=== PATIENT | male | born 1975 | race Caucasian/White ===

== ENCOUNTER 2024-09-17 15:26 | Emergency (ER) | payer BC, SELFPAY ==
[2024-09-17 15:35] VITALS: BP 157/110; PULSE 91; RESP 16; TEMP 36.7; O2SAT 96; BMI 31.3
--- NOTE | 2024-09-17 16:02 | ED.ABDPAIN ---
HPI - Abdominal Pain General Time Seen by Provider: 16:02 Date Seen: 09/17/24 Chief Complaint: Abdominal Pain Stated Complaint: Abdominal pain Time Seen by Provider: 09/17/24 16:02 Source: patient Mode of arrival: ambulatory Limitations: no limitations History of Present Illness HPI narrative: 48-year-old male who presents with 1 month of abdominal pain. Patient complains of upper abdominal pain and bloating after he eats. No vomiting. No blood in the stools. Also has noticed various other complaints of last several months including left chest pain, recently had a stress test with his primary care provider which was negative, also pain in the sides of the chest bilaterally. History of ulcerative colitis, has previously been infusions for this but stopped last month after possible infusion reaction. Related Data Home Medications ?Medication ?Instructions ?Recorded ?Confirmed amlodipine 5 mg tablet 5 mg PO DAILY blood pressure 09/17/24 09/17/24 cyclobenzaprine 10 mg tablet mg PO 09/17/24 insulin glargine 100 unit/mL (3 30 - 32 unit subcut QPM 09/17/24 09/17/24 mL) subcutaneous pen (Lantus Solostar U-100 Insulin) metformin 500 mg tablet,extended 1,500 mg PO DAILY diabetes mellitus 09/17/24 09/17/24 release 24 hr pen needle, diabetic 32 gauge x 09/17/24 09/17/24 5/32 (BD Mireya 2nd Gen Pen Needle) Allergies Allergy/AdvReac Type Severity Reaction Status Date / Time sulfamethoxazole (From Allergy Intermediate Rash Unverified 09/17/24 15:46 Bactrim) trimethoprim (From Bactrim) Allergy Intermediate Rash Unverified 09/17/24 15:46 Sulfa (Sulfonamide Allergy Unknown Unverified 09/17/24 15:46 Antibiotics) Exam Narrative: Exam Narrative: General: Well-developed and well-nourished, no acute distress Head: Atraumatic and normocephalic Eyes: Pupils are equal reactive, extraocular motions intact, conjunctiva clear ENT: External nose and ears are normal, posterior pharynx without erythema or exudate Neck: No midline cervical tenderness, full spontaneous range of motion the neck, trachea midline, no adenopathy Heart: Regular rate and rhythm no murmurs or thrills Lungs: Clear to auscultation bilaterally without wheezes or crackles Abdomen: Soft, nontender, nondistended with active bowel sounds Musculoskeletal: No tenderness, deformity, or edema Neurologic: Awake, alert, and oriented x3, no gross focal neurologic deficits, cranial nerves intact as tested Psych: Mood and affect are appropriate Skin: No rashes Const: Vital Signs, click to edit/add: Vital Signs - 24 hr 09/17/24 15:35 Temperature 98.1 F Pulse Rate [Pulse Oximeter] 91 Respiratory Rate 16 Blood Pressure [Le ft Upper Arm] 157/110 H Pulse Oximetry 96 Oxygen Delivery Me thod Room Air Course Course ED Course: Reviewed most recent problem list including diabetes, history of lower abdominal pain previously diagnosed with ulcerative colitis, chronic back pain, anxiety. Reviewed most recent labs from September 03 a which showed normal LFTs, negative CRP, normal CBC negative stool testing for enteric bacteria and viruses. Reevaluation(s) Time of Reevaluation #1: 17:44 Reevaluation #1: Right upper quadrant ultra sound with hepatic steatosis, no evidence of acute cholecystitis or cholelithiasis. Labs with bilirubin 1.7, ALT 51 but otherwise normal hepatic panel, blood sugar 189, lipase normal. Patient is stable for discharge. Should increase his Protonix to twice a day for 1 week and then daily, follow-up with gastroenterology and primary care. Vital Signs Vital signs: Initial Vital Signs Temperature 98.1 F 09/17/24 15:35 Temperature Source Temporal Artery Scan 09/17/24 15:35 Pulse Rate 91 09/17/24 15:35 Respiratory Rate 16 09/17/24 15:35 Blood Pressure 157/110 H 09/17/24 15:35 Blood Pressure Mean 125 H 09/17/24 15:35 Pulse Oximetry 96 09/17/24 15:35 Oxygen Delivery Method Room Air 09/17/24 15:35 Vital Signs Temperature 98.1 F 09/17/24 15:35 Pulse Rate 91 09/17/24 15:35 Respiratory Rate 16 09/17/24 15:35 Blood Pressure 157/110 H 09/17/24 15:35 Pulse Oximetry 96 09/17/24 15:35 Oxygen Delivery Method Room Air 09/17/24 15:35 Temperature 98.1 F 09/17/24 15:35 Pulse Rate 91 09/17/24 15:35 Respiratory Rate 16 09/17/24 15:35 Blood Pressure 157/110 H 09/17/24 15:35 Pulse Oximetry 96 09/17/24 15:35 Oxygen Delivery Method Room Air 09/17/24 15:35 MDM - Abdominal Pain Lab Data Labs: Lab Results 09/17/24 Range/Units 17:10 WBC 5.31 (4.50-11.00) K/uL RBC 4.96 (4.30-5.90) m/uL Hgb 15.2 (13.5-17.5) gm/dL Hct 43.1 (37.0-53.0) % MCV 87 (80-100) fL MCH 31 (26-34) pg MCHC 35 (32-36) gm/dL RDW Coeff of Nisa 12.9 (11.5-15.5) % Plt Count 168 (140-440) K/uL Neut % (Auto) 53.2 (42.0-72.0) % Lymph % (Auto) 35.2 (20-44) % Shasta % (Auto) 8.9 (0.0-11.0) % Eos % (Auto) 2.3 (0.0-7.0) % Baso % (Auto) 0.4 (0.0-3.0) % Neut # (Auto) 2.83 (1.7-7.0) K/uL Lymph # (Auto) 1.87 (0.90-2.90) K/uL Shasta # (Auto) 0.50 (0.00-0.90) K/UL Eos # (Auto) 0.12 (0.00-0.50) K/uL Baso # (Auto) 0.02 (0.00-0.30) K/uL Abs Immat Gran (auto) 0.00 (0.00-0.30) K/uL Imm/Tot Granulo (auto) 0.0 % Sodium 141 (135-149) mmol/L Potassium 3.7 (3.6-5.1) mmol/L Chloride 107 (96-114) mmol/L Carbon Dioxide 26 (20-32) mmol/L Anion Gap 8 (7-15) mEq/L BUN 14 (5-24) mg/dL Creatinine 1.0 (0.5-1.5) mg/dL Estimated Creat Clear 109.71 Estimated GFR 92 ml/min Glucose 189 H (60-115) mg/dL Calcium 9.2 (8.4-10.6) mg/dL Total Bilirubin 1.7 H (0.1-1.5) mg/dL Direct Bilirubin 0.3 (0.0-0.5) mg/dL AST 31 (12-35) U/L ALT 51 H (4-50) U/L Alkaline Phosphatase 61 (40-150) U/L Total Protein 7.2 (6.0-8.3) g/dL Albumin 4.7 (3.3-5.0) g/dL Lipase 168 (23-300) U/L Discharge Plan Discharge Clinical Impression: Gastritis Patient Disposition: Home, Self-Care Condition: Stable Instructions: Diet for Stomach Ulcers and Gastritis (ED) Additional Instructions: See take Prilosec or Protonix twice a day for 7 days and then once a day. Follow-up with your certified professional ergonomist and primary care provider. If symptoms persist, consider EGD or ?scope? of the esophagus and stomach. Activity Level: No Restrictions Diet Detail: Avoid carbonated beverages, alcohol, caffeine Prescriptions: No Action cyclobenzaprine 10 mg tablet PO amlodipine 5 mg tablet 5 mg PO DAILY metformin 500 mg tablet extended release 24 hr 1,500 mg PO DAILY insulin glargine [Lantus Solostar U-100 Insulin] 100 unit/mL (3 mL) insulin pen 30 - 32 unit subcut QPM (DME) pen needle, diabetic [BD Mireya 2nd Gen Pen Needle] 32 gauge x 5/32 needle MISCELLANEOUS Patient Comments: PLEASE SEE ATTACHED FOR DETAILED DIRECTIONS Follow Up/Referrals: Jairo Vasquez MD [Primary Care Provider] - Stand Alone Forms: DossierViewth Info Instructions
--- NOTE | 2024-09-17 16:27 | CRLHL7_ITS ---
For Patients: As a result of the Century Cures Act, medical imaging exams and procedure reports are released immediately into your electronic medical record. You may view this report before your referring provider. If you have questions, please contact your health care provider. Indication: upper abdominal bloating after eating Technique: Multiple transverse and longitudinal sonographic grayscale images of the right upper quadrant of the abdomen were obtained, supplemented with color, power, and spectral Doppler imaging. Comparison: None. Findings: Suboptimal examination secondary to habitus. Pancreas: Visualized portions normal. Liver length: 19.7 cm. Liver appearance: Moderate hepatic steatosis. No biliary ductal dilation. Portal vein: Patent, hepatopetal flow. CBD: 0.4 cm. Gallbladder: Negative sonographic Green sign. Contracted. Right kidney length: 11.8 cm. Right kidney appearance: Normal. Impression: 1. Suboptimal examination secondary to habitus. 2. Moderate hepatic steatosis. 3. Contracted gallbladder without sonographic evidence of acute cholecystitis. Limited evaluation of the gallbladder as the patient was not fasting. Dictated by Stephan Harp MD @ 09/17/2024 5:27:30 PM (Electronically Signed)
[2024-09-17 17:23] LABS: Basophils Absolute Auto 0.02 K/uL (0.00-0.30); Basophils Percent Auto 0.4 % (0.0-3.0); Eosinophils Absolute Auto 0.12 K/uL (0.00-0.50); Eosinophils Percent Auto 2.3 % (0.0-7.0); Hematocrit 43.1 % (37.0-53.0); Hemoglobin* 15.2 gm/dL (13.5-17.5); Lymphocytes Absolute Auto 1.87 K/uL (0.90-2.90); Lymphocytes Percent Auto 35.2 % (20-44); Mean Corpuscular HGB Conc 35 gm/dL (32-36); Mean Corpuscular Hemoglobin 31 pg (26-34); Mean Corpuscular Volume 87 fL (80-100); Monocytes Percent Auto 8.9 % (0.0-11.0); Neutrophils Absolute Auto 2.83 K/uL (1.7-7.0); Neutrophils Percent Auto 53.2 % (42.0-72.0); Platelet Count* 168 K/uL (140-440); RDW Coefficient of Variation % 12.9 % (11.5-15.5); Red Blood Count 4.96 m/uL (4.30-5.90); White Blood Count* 5.31 K/uL (4.50-11.00)
[2024-09-17 17:24] LABS: Slide Review Reflex No
[2024-09-17 17:30] LABS: Albumin* 4.7 g/dL (3.3-5.0); Chloride* 107 mmol/L (96-114); Potassium* 3.7 mmol/L (3.6-5.1); Sodium* 141 mmol/L (135-149)
[2024-09-17 17:32] LABS: Anion Gap 8 mEq/L (7-15); Carbon Dioxide* 26 mmol/L (20-32); Est. Creatinine Clearance* 109.71; Estimated Glomerular Filt Rate 92 ml/min
[2024-09-17 17:33] LABS: Alanine Aminotransferase* 51 U/L (4-50); Alkaline Phosphatase* 61 U/L (40-150); Aspartate Amino Transferase* 31 U/L (12-35); Bilirubin Direct* 0.3 mg/dL (0.0-0.5); Bilirubin Total* 1.7 mg/dL (0.1-1.5); Blood Urea Nitrogen* 14 mg/dL (5-24); Calcium* 9.2 mg/dL (8.4-10.6); Glucose* 189 mg/dL (60-115); Lipase* 168 U/L (23-300); Total Protein* 7.2 g/dL (6.0-8.3)
== END 2024-09-17 17:57 | disposition home or self-care (01) ==
PROVIDERS: Emergency Provider Family Medicine; PCP Family Medicine
DX: K29.70 Gastritis, unspecified, without bleeding (principal)
CPT/HCPCS: 36415; 76705; 80048; 80076; 83690; 85025; 99283; 99284

== ENCOUNTER 2025-01-15 15:41 | Emergency (ER) | payer BC, SELFPAY ==
--- OUTSIDE RECORDS SUMMARY | 2025-01-15 15:44 | XMS_ITS | Encounter Summary ---
Author Organization [facility] Address [address] [place] [address] Care Team Providers Care Chemical Research Engineer Name Role Phone Jairo Vasquez MD Primary Care Provider [phone] Kylee Dailey MD Unavailable + Kayode Ivey MD Unavailable [phone] Nicolasa Perez APRN FRONT DESK ASSOCIATE Unavaila ble Srinivas Stern-C Unavailable Srinivas Stern-C Unavailable [phone] Bandar Casas [facility] Unavailable Bandar Casas [facility] Unavailable Ayana Zhang-C Unavailable [phone] Srinivas Stern-C Unavailable [phone] Encounter Details Date Type Department Care Team (Late st Contact Info) Description 04/11/2024 MyC Medical Advice [facility] [address] [place] [address] Erika Dickson Social History Tobacco Use Types Packs/Day Years Used Date Smoking Tobacco: Never Smokeless Tobacco: Never Alcohol Use Standard Drinks/Week Comments Yes 13 (1 standard drink = 0.6 oz pu re alcohol) MONTHLY PHQ-2 Answer Date Recorded PHQ-2 Score 0 10/25/2023 Adolescent Education Answer Date Record ed Getting School Help Needed Not on file 05/28 Sex and Gender Information Value Date Recorded Sex Assigned at Not on file Legal Sex 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 Gender Identity Not on file Sexual Orientation Not on file 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 Plan of Treatment Upcoming Encounters Date Type Department Care Team (Latest Contact Info) Description 02/13/2025 3:20 PM CDT Appointment [facility] [address] [facility] [address] [place] [phone] Kayode Ivey MD [address] [place] [address] [phone] 03/07/2025 3:00 PM CDT Ancillary Procedure [address] [place] [address] Srinivas Stern PA-C [address] [place] [address] [phone] 04/24/2025 2:40 PM CDT Virtual Visit [facility] [address] [place] [address] Alexis Torres MD [address] [place], [place] [phone] Srinivas Stern PA-C [address] [place] [address] [phone] 06/05/2025 3:30 PM CDT Virtual Visit [facility] [address] [place] [address] 2[address] [place] [address] Kayode Ivey MD [address] [place] [address] [phone] Bandar Casas RPH 420 [facility] [address] [place], [place] 050715 documented as of this encounter Visit Diagnoses Not on filedocumented in this encounter Additional Health Concerns Infection Onset Date Last Indicated Resolved Time MRSA-Contact Isolation Comment: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, chest, and elbow 02/17/2016 02/17/2016 Rule Out C-difficile 09/03/2024 09/04/2024 025 12:45 PM CENTER MACHINE SET UP OPERATOR Assessment Noted Time PHQ-9 Depression Total Score: 9 03/02/20 16 7:16 AM CDT documented as of this encounter Care Teams Chemical Research Engineer Relationship Specialty Start Date End Date Jairo Vasquez MD PCP - General Family Medicine - Sports Medicine 12/29/15 Kylee Dailey MD [address] [place] [address] [address] [place], [place] [phone] Internal Medicine 04/01/17 Kayode Ivey MD [address] [place] [address] [phone] Gastroenterology 04/01/17 Nicolasa Perez APRN FRONT DESK ASSOCIATE [address] [place] [address] [id number] [place], [place] 867895 Nurse Practitioner Nurse Practitioner 04/28/17 Srinivas Stern PA-C [address] [place] [address] [id number] Physician Warehouse Stock Clerk Physician Warehouse Stock Clerk 10/02/18 Srinivas Stern PA-C [address] [place] [address] [phone] Assigned Gastroenterology Provider 07/17/22 Bandar Casas RPH [address] [phone] Pharmacist Pharmacist 08/18/23 Bandar Casas RPH [address] [phone] Assigned MTM Pharmacist 08/27/23 Ayana Zhang PA-C [address] [place] [address] Physician Warehouse Stock Clerk Rheumatology 04/16/24 Srinivas Stern PA-C [address] [place], [place] 624575 Home Infusion Following Provider Gastroenterology 07/11/24 10/05/24 documented as of this encounter
--- OUTSIDE RECORDS SUMMARY | 2025-01-15 15:44 | XMS_ITS | Encounter Summary ---
Author Organization [facility] Address [address] [place] [address] Care Team Providers Care Men'S Leather Dress Belt Maker Name Role Phone Jairo Vasquez MD Primary Care Provider [phone] Kylee Dailey MD Unavailable + Kayode Ivey MD Unavailable [phone] Nicolasa Perez APRN SALES RELATIONSHIP MANAGER Unavaila ble Loyda Dickey RN Unavailable [phone] Srinivas Stern PA-C Unavailable [phone] Srinivas Stern PA-C Unavailable +[phone] Violet Ta [facility] Unavailable [phone] Sue Mckeon [facility] Unavailable [phone] Karen Trinh MD Unavailable +[phone] Violet Ta [facility] Unavailable [phone] Violet Ta [facility] Unavailable [phone] Srinivas Stern PA-C Unavailable [phone] Bandar Casas [facility] Unavailable [phone] Bandar Casas [facility] Unavailable [phone] Ayana Zhang PA-C Unavailable [phone] Srinivas Stern PA-C Unavailable Encounter Details Date Type Department Care Team (Late st Contact Info) Description 07/24/2017 MyC Medical Advice [facility] [address] [place] [address] Kayode Ivey MD 6 [place], [place] [phone] Social History Tobacco Use Types Packs/Day Years Used Date Smoking Tobacco: Never Smokeless Tobacco: Never Alcohol Use Standard Drinks/Week Comments Yes 13 (1 standard drink = 0.6 oz pu re alcohol) MONTHLY Sex and Gender Information Value Date Recorded Sex Assigned at Not on file 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 Gender Identity Not on file Sexual Orientation Not on file 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 Plan of Treatment Upcoming Encounters Date Type Department Care Team (Latest Contact Info) Description 02/13/2025 3:20 PM CDT Appointment [facility] [address] [facility] [address] [place] [phone] Kayode Ivey MD 6 [place] [address] 03/07/2025 3:00 PM CDT Ancillary Procedure [address] [place] [address] Srinivas Stern PA-C [address] [place], [place] [phone] 04/24/2025 2:40 PM CDT Virtual Visit [facility]astro[facility]ology [facility] [address] [address] Alexis Torres MD 420 [place] [address] Srinivas Stern PA-C [address] [place], [place] [phone] 06/05/2025 3:30 PM CDT Virtual Visit Viola MADERA [facility] 909 [facility] 2nd [place] [phone] Kayode Ivey MD [address] [place] [address] Bandar Casas, [facility] 420 [facility] 812 [place] [address] documented as of this encounter Visit Diagnoses Not on filedocumented in this encounter Additional Health Concerns Infection Onset Date Last Indicated Resolved Time MRSA-Contact Isolation Comment: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, chest, and elbow 02/17/2016 02/17/2016 Rule Out C-difficile 10/04/2023 10/05/2023 024 7:28 PM ECOMMERCE MARKETING SPECIALIST C-difficile 10/05/2023 10/05/2023 11/04/2023 11:3 9 PM ECOMMERCE MARKETING SPECIALIST Rule Out C-difficile 09/03/2024 09/04/2024 025 12:45 PM ECOMMERCE MARKETING SPECIALIST Assessment Noted Time PHQ-9 Depression Total Score: 9 03/02/20 16 7:16 AM CDT documented as of this encounter Care Teams Men'S Leather Dress Belt Maker Relationship Specialty Start Date End Date Jairo Vasquez MD PCP - General Family Medicine - Sports Medicine 12/29/15 Kylee Dailey MD [address] [place] [address] [address] [place], [place] [phone] Internal Medicine 04/01/17 Kayode Ivey MD [address] [place] [address] Gastroenterology 04/01/17 Nicolasa Perez APRN SALES RELATIONSHIP MANAGER [address] [place] [place] [address] [id number] [place], [place] 982175 Nurse Practitioner Nurse Practitioner 04/28/17 Loyda Dickey RN Nurse Coordinator Neurology 05/26/17 02/26/19 Srinivas Stern PA-C [address] [place] [address] Physician Javascript Software Engineer Physician Javascript Software Engineer 10/02/18 Srinivas Stern PA-C [address] [place] [address] Assigned Heart and Vascular Provider 11/19/20 06/27/21 Violet Ta [facility] [address] [place] [address] Pharmacist Pharmacist 12/29/20 02/08/21 Sue Mckeon [facility] [address] [place] [address] [phone] Pharmacist Pharmacist Internal Communications Specialist 02/09/21 06/29/22 Karen Trinh MD [address] [place] [address] [phone] Assigned Infectious Disease Provider 02/08/21 07/30/22 Violet Ta [facility] [address] [place] [address] 96 [place], [place] [phone] Assigned MTM Pharmacist 02/27/22 05/21/22 Violet Ta [facility] 480 [facility] [address] [place] [address] Assigned MTM Pharmacist 06/02/22 07/09/22 Srinivas Stern PA-C [address] [place] [address] Assigned Gastroenterology Provider 07/17/22 Bandar Casas RPH 420 [facility] 812 [place] [address] Pharmacist Pharmacist 08/18/23 Bandar Casas RP [address] [address] Assigned MTM Pharmacist 08/27/23 Ayana Zhang PA-C [address] [place] [address] Physician Javascript Software Engineer Rheumatology 04/16/24 Srinivas Stern PA-C [address] [place] [address] Home Infusion Following Provider Gastroenterology 07/11/24 10/05/24 documented as of this encounter
--- OUTSIDE RECORDS SUMMARY | 2025-01-15 15:44 | XMS_ITS | Encounter Summary ---
Author Organization [facility] Address [address] [place] [address] Care Team Providers Care Core Drier Name Role Phone Jairo Vasquez MD Primary Care Provider [phone] Kylee Dailey MD Unavailable + Kayode Ivey MD Unavailable [phone] Nicolasa Perez APRN DIRECTOR OF ACCREDITATION Unavaila ble Loyda Dickey RN Unavailable [phone] Srinivas Stern PA-C Unavailable [phone] Srinivas Stern PA-C Unavailable +[phone] Violet Ta [facility] Unavailable [phone] Sue Mckeon [facility] Unavailable [phone] Karen Trinh MD Unavailable +[phone] Violet Ta [facility] Unavailable [phone] Violet Ta [facility] Unavailable [phone] Srinivas Stern PA-C Unavailable +[phone] Bandar Casas [facility] Unavailable [phone] Bandar Casas [facility] Unavailable [phone] Ayana Zhang PA-C Unavailable [phone] Srinivas Stern PA-C Unavailable Encounter Details Date Type Department Care Team (Late st Contact Info) Description 11/10/2016 MyC Medical Advice [facility]enter[facility] and IBD Clinic [address] [place] [address] Kayode Ievy MD 6 [place] [address] Social History Tobacco Use Types Packs/Day Years Used Date Smoking Tobacco: Never Alcohol Use Standard Drinks/Week Comments No 0 (1 standard drink = 0.6 oz pur e alcohol) not currently Sex and Gender Information Value Date Recorded Sex Assigned at Not on file 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 Sex 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 Gender Identity Not on file Sexual Orientation Not on file 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 Plan of Treatment Upcoming Encounters Date Type Department Care Team (Latest Contact Info) Description 02/13/2025 3:20 PM CDT Appointment [facility] Imaging [address] [facility] [address] [place] [phone] Kayode Ivey MD 6 [place] [address] 03/07/2025 3:00 PM CDT Ancillary Procedure [address] [place] [address] Srinivas Stern PA-C [address] [place] [address] [phone] 04/24/2025 2:40 PM CDT Virtual Visit [facility]astro[facility]ology Clinic [address] [address] Alexis Torres MD 420 [place] [address] Srinivas Stern PA-C 909 [place], [place] 329405 06/05/2025 3:30 PM CDT Virtual Visit Viola MADERA [facility] 909 [facility] [address] 2nd [place] [phone] Kayode Ivey MD 516 [place] [address] Bandar Casas, [facility] 420 [facility] 812 [place], [place] 994815 documented as of this encounter Visit Diagnoses Not on filedocumented in this encounter Additional Health Concerns Infection Onset Date Last Indicated Resolved Time MRSA-Contact Isolation Comment: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, chest, and elbow 02/17/2016 02/17/2016 Rule Out C-difficile 10/04/2023 10/05/2023 024 7:28 PM SUPERVISOR DRYING C-difficile 10/05/2023 10/05/2023 11/04/2023 11:3 9 PM SUPERVISOR DRYING Rule Out C-difficile 09/03/2024 09/04/2024 025 12:45 PM SUPERVISOR DRYING Assessment Noted Time PHQ-9 Depression Total Score: 9 03/02/20 16 7:16 AM CDT documented as of this encounter Care Teams Core Drier Relationship Specialty Start Date End Date Jairo Vasquez MD PCP - General Family Medicine - Sports Medicine 12/29/15 Kylee Dailey MD [address] [place] [address] [address] [place] [address] Internal Medicine 04/01/17 Kayode Ivey MD [address] [place] [address] Gastroenterology 04/01/17 Nicolasa Perez APRN DIRECTOR OF ACCREDITATION [address] [place] [address] [id number] [place], [place] 589415 Nurse Practitioner Nurse Practitioner 04/28/17 Loyda Dickey RN Nurse Coordinator Neurology 05/26/17 02/26/19 Srinivas Stern PA-C [address] [place] [address] [phone] Physician Bad Work Gatherer Physician Bad Work Gatherer 10/02/18 Srinivas Stern PA-C [address] [place] [address] [phone] Assigned Heart and Vascular Provider 11/19/20 06/27/21 Violet Ta [facility] [address] [place] [address] Pharmacist Pharmacist 12/29/20 02/08/21 Sue Mckeon [facility] [address] [place] [address] 044145 Pharmacist Pharmacist Heel Seater 02/09/21 06/29/22 Karen Trinh MD [address] [place] [address] [phone] Assigned Infectious Disease Provider 02/08/21 07/30/22 Violet Ta [facility] [address] [place] [address] [phone] Assigned MTM Pharmacist 02/27/22 05/21/22 Violet Ta [facility] [address] [place] [address] [address] [place] [address] Assigned MTM Pharmacist 06/02/22 07/09/22 Srinivas Stern PA-C 909 [place] [address] Assigned Gastroenterology Provider 07/17/22 Bandar Casas RPH [address] [address] Pharmacist Pharmacist 08/18/23 Bandar Casas RPH [address] [place] [address] Assigned MTM Pharmacist 08/27/23 Ayana Zhang PA-C [address] [place] [address] Physician Bad Work Gatherer Rheumatology 04/16/24 Srinivas Stern PA-C [address] [place] [address] Home Infusion Following Provider Gastroenterology 07/11/24 10/05/24 documented as of this encounter
--- OUTSIDE RECORDS SUMMARY | 2025-01-15 15:44 | XMS_ITS | Encounter Summary ---
Author Organization [facility] Address [address] [place] [address] 29697 Care Team Providers Care Outside Cutter Name Role Phone Jairo Vasquez MD Primary Care Provider [phone] Kylee Dailey MD Unavailable + Kayode Ivey MD Unavailable +[phone] Nicolasa Perez APRN BRINELL TESTER Unavaila ble Loyda Dickey RN Unavailable [phone] Srinivas Stern PA-C Unavailable +[phone] Srinivas Stern PA-C Unavailable +[phone] [facility] Unavailable +[phone] Sue Mckeon [facility] Unavailable +[phone] Karen Trinh MD Unavailable [phone] [facility] Unavailable +[phone] Violet [facility] Unavailable +[phone] Srinivas Stern PA-C Unavailable +[phone] Band[facility] Unavailable +[phone] [facility] Unavailable Ayana Zhang PA-C Unavailable [phone] Srinivas Stern PA-C Unavailable [phone] Encounter Details Date Type Department Care Team (Late st Contact Info) Description 09/23/2016 MyC Medical Advice [facility] Gastroenterology and IBD Clinic [address] [place] [address] Kayode Ivey MD 6 [place] [address] Social History Tobacco Use Types Packs/Day Years Used Date Smoking Tobacco: Never Alcohol Use Standard Drinks/Week Comments No 0 (1 standard drink = 0.6 oz pur e alcohol) not currently Sex and Gender Information Value Date Recorded Sex Assigned at Not on file Legal Sex 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 OFFICE SERVICES CLERK Gender Identity Not on file Sexual Orientation Not on file 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 Plan of Treatment Upcoming Encounters Date Type Department Care Team (Latest Contact Info) Description 02/13/2025 3:20 PM CDT Appointment [facility] [address] [facility] [address] [place] [phone] Kayode Ivey MD 6 [place] [address] 03/07/2025 3:00 PM CDT Ancillary Procedure [address] [place] [address] Srinivas Stern PA-C [address] [place] [address] [phone] 04/24/2025 2:40 PM CDT Virtual Visit [facility] Gastroenterology Clinic [address] [address] Alexsi Torres MD 420 [place] [address] Srinivas Stern PA-C 909 [place], [place] 978525 06/05/2025 3:30 PM CDT Virtual Visit Viola MADERA MTM 909 [facility] [address]nd [place] [phone] Kayode Ivey MD 516 [place] [address] Bandar Casas, [facility] [address] [facility] 812 [place], [place] [phone] documented as of this encounter Visit Diagnoses Not on filedocumented in this encounter Additional Health Concerns Infection Onset Date Last Indicated Resolved Time MRSA-Contact Isolation Comment: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, chest, and elbow 02/17/2016 02/17/2016 Rule Out C-difficile 10/04/2023 10/05/2023 024 7:28 PM OFFICE SERVICES CLERK C-difficile 10/05/2023 10/05/2023 11/04/2023 11:3 9 PM OFFICE SERVICES CLERK Rule Out C-difficile 09/03/2024 09/04/2024 025 12:45 PM OFFICE SERVICES CLERK Assessment Noted Time PHQ-9 Depression Total Score: 9 03/02/20 16 7:16 AM CDT documented as of this encounter Care Teams Outside Cutter Relationship Specialty Start Date End Date aJiro Vasquez MD PCP - General Family Medicine - Sports Medicine 12/29/15 Kylee Dailey MD [address] [place] [address] 2[address] [place] [address] Internal Medicine 04/01/17 Kayode Ivey MD [address] [place] [address] Gastroenterology 04/01/17 Nicolasa Perez APRN BRINELL TESTER [address] [place] [address] [id number] [place], [place] 162295 Nurse Practitioner Nurse Practitioner 04/28/17 Loyda Dickey RN Nurse Coordinator Neurology 05/26/17 02/26/19 Srinivas Stern PA-C [address] [place] [address] [phone] Physician Clamp Jig Assembler Physician Clamp Jig Assembler 10/02/18 Srinivas Stern PA-C [address] [place] [address] [phone] Assigned Heart and Vascular Provider 11/19/20 06/27/21 [facility] [address] [place] [address] Pharmacist Pharmacist 12/29/20 02/08/21 [facility] [address] [place] [address] [phone] Pharmacist Pharmacist Medical Operations Supervisor 02/09/21 06/29/22 Karen Trinh MD [address] [place] [address] [phone] Assigned Infectious Disease Provider 02/08/21 07/30/22 [facility] [address] [place] [address] [phone] Assigned MTM Pharmacist 02/27/22 05/21/22 [facility] [address] [place] [address] [address] [place] [address] Assigned MTM Pharmacist 06/02/22 07/09/22 Srinivas Stern PA-C 909 [place] [address] Assigned Gastroenterology Provider 07/17/22 Bandar Casas RPH [address] [address] Pharmacist Pharmacist 08/18/23 Bandar Casas RPH [address] [place] [address] Assigned MTM Pharmacist 08/27/23 Ayana Zhang PA-C [address] [place] [address] Physician Clamp Jig Assembler Rheumatology 04/16/24 Srinivas Stern PA-C [address] [place] [address] Home Infusion Following Provider Gastroenterology 07/11/24 10/05/24 documented as of this encounter
--- OUTSIDE RECORDS SUMMARY | 2025-01-15 15:44 | XMS_ITS | Encounter Summary ---
Author Organization [facility] Address [address] [place] [address] Care Team Providers Care Document Examiner Name Role Phone Jairo Vasquez MD Primary Care Provider [phone] Kylee Dailey MD Unavailable + Kayode Ivey MD Unavailable [phone] Nicolasa Perez APRN FIRE ALARM DISPATCHER Unavaila ble Loyda Dickey RN Unavailable [phone] Srinivas Stern PA-C Unavailable +[phone] Srinivas Stern PA-C Unavailable +[phone] Violet Ta [facility] Unavailable +[phone] Sue Mckeon [facility] Unavailable [phone] Karen Trinh MD Unavailable +[phone] Violet Ta [facility] Unavailable +[phone] Violet Ta [facility] Unavailable +[phone] Srinivas Stern PA-C Unavailable +[phone] Bandar Casas [facility] Unavailable [phone] Bandar Casas [facility] Unavailable Ayana Zhang PA-C Unavailable [phone] Srinivas Stern PA-C Unavailable [phone] Encounter Details Date Type Department Care Team (Late st Contact Info) Description 11/30/2016 MyC Medical Advice [facility] Gastroenterology and IBD Clinic [address] [place] [address] Kayode Ivey MD 6 [place] [address] Social History Tobacco Use Types Packs/Day Years Used Date Smoking Tobacco: Never Alcohol Use Standard Drinks/Week Comments No 0 (1 standard drink = 0.6 oz pur e alcohol) not currently Sex and Gender Information Value Date Recorded Sex Assigned at Not on file Legal Sex 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 STATISTICAL METHODS TEACHER Gender Identity Not on file Sexual Orientation Not on file 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 Plan of Treatment Upcoming Encounters Date Type Department Care Team (Latest Contact Info) Description 02/13/2025 3:20 PM CDT Appointment [facility] Center Imaging [address] [facility] [address] [place] [phone] Kayode Ivey MD 6 [place] [address] 03/07/2025 3:00 PM CDT Ancillary Procedure [address] [place] [address] Srinivas Stern PA-C [address] [place] [address] [phone] 04/24/2025 2:40 PM CDT Virtual Visit [facility] Gastroenterology Clinic [address] [address] Alexis Torres MD 420 [place] [address] Srinivas Stern PA-C 909 [place], [place] [phone] 06/05/2025 3:30 PM CDT Virtual Visit Viola MADERA MTM 909 [facility] [address] 2nd [place] [phone] Kayode Ivey MD 516 [place] [address] Bandar Casas, [facility] 420 [facility] 812 [place], [place] 019455 documented as of this encounter Visit Diagnoses Not on filedocumented in this encounter Additional Health Concerns Infection Onset Date Last Indicated Resolved Time MRSA-Contact Isolation Comment: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, chest, and elbow 02/17/2016 02/17/2016 Rule Out C-difficile 10/04/2023 10/05/2023 024 7:28 PM STATISTICAL METHODS TEACHER C-difficile 10/05/2023 10/05/2023 11/04/2023 11:3 9 PM STATISTICAL METHODS TEACHER Rule Out C-difficile 09/03/2024 09/04/2024 025 12:45 PM STATISTICAL METHODS TEACHER Assessment Noted Time PHQ-9 Depression Total Score: 9 03/02/20 16 7:16 AM CDT documented as of this encounter Care Teams Document Examiner Relationship Specialty Start Date End Date Jairo Vasquez MD PCP - General Family Medicine - Sports Medicine 12/29/15 Kylee Dailey MD [address] [place] [address] 2[address] [place] [address] Internal Medicine 04/01/17 Kayode Ivey MD [address] [place] [address] Gastroenterology 04/01/17 Nicolasa Perez APRN FIRE ALARM DISPATCHER [address] [place] [address] [id number] [place], [place] [phone] Nurse Practitioner Nurse Practitioner 04/28/17 Loyda Dickey RN Nurse Coordinator Neurology 05/26/17 02/26/19 Srinivas Stern PA-C [address] [place] [address] [phone] Physician Sql Etl Developer Physician Sql Etl Developer 10/02/18 Srinivas Stern PA-C [address] [place] [address] [phone] Assigned Heart and Vascular Provider 11/19/20 06/27/21 Violet Ta [facility] [address] [place] [address] 386[address] Pharmacist Pharmacist 12/29/20 02/08/21 Sue Mckeon [facility] [address] [place] [address] [phone] Pharmacist Pharmacist Soyfreeze Operator 02/09/21 06/29/22 Karen Trinh MD [address] [place] [address] [phone] Assigned Infectious Disease Provider 02/08/21 07/30/22 Violet Ta [facility] [address] [place] [address] [phone] Assigned MTM Pharmacist 02/27/22 05/21/22 Violet Ta [facility] [address] [place] [address] [address] [place] [address] Assigned MTM Pharmacist 06/02/22 07/09/22 Srinivas Stern PA-C 909 [place] [address] Assigned Gastroenterology Provider 07/17/22 Bandar Casas R[facility] [address] [address] Pharmacist Pharmacist 08/18/23 Bandar Casas R[facility] [address] [place] [address] Assigned MTM Pharmacist 08/27/23 Ayana Zhang PA-C [address] [place] [address]44 Physician Sql Etl Developer Rheumatology 04/16/24 Srinivas Stern PA-C [address] [place] [address] Home Infusion Following Provider Gastroenterology 07/11/24 10/05/24 documented as of this encounter
--- OUTSIDE RECORDS SUMMARY | 2025-01-15 15:44 | XMS_ITS | Encounter Summary ---
Author Organization [facility] Address [address] [place] [address]85 Care Team Providers Care Oil Spraying Machine Operator Name Role Phone Jairo Vasquez MD Primary Care Provider [phone] Kylee Dailey MD Unavailable + Kayode Ivey MD Unavailable [phone] Nicolasa Perez APRN WAREHOUSE DELIVERY MANAGER Unavaila ble Loyda Dickey RN Unavailable [phone] Srinivas Stern PA-C Unavailable +[phone] Srinivas Stern PA-C Unavailable +[phone] Violet Ta [facility] Unavailable +[phone] Sue Mckeon [facility] Unavailable [phone] Karen Trinh MD Unavailable +[phone] Violet Ta [facility] Unavailable +[phone] Violet Ta [facility] Unavailable +[phone] Srinivas Stern PA-C Unavailable +[phone] Bandar Casas [facility] Unavailable [phone] Bandar Casas [facility] Unavailable Ayana Zhang PA-C Unavailable [phone] Srinivas Stern PA-C Unavailable [phone] Encounter Details Date Type Department Care Team (Late st Contact Info) Description 08/02/2017 MyC Medical Advice [facility] Neurology [address] [place] [address] [address] [place] [address] Gertrudis Melton, RN Social History Tobacco Use Types Packs/Day Years Used Date Smoking Tobacco: Never Smokeless Tobacco: Never Alcohol Use Standard Drinks/Week Comments Yes 13 (1 standard drink = 0.6 oz pu re alcohol) MONTHLY Sex and Gender Information Value Date Recorded Sex Assigned at Not on file Legal Sex 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 TABLE OPERATOR Gender Identity Not on file Sexual Orientation Not on file 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 Plan of Treatment Upcoming Encounters Date Type Department Care Team (Latest Contact Info) Description 02/13/2025 3:20 PM CDT Appointment [facility] Imaging [address] [facility] [address] [place] [phone] Kayode Ivey MD 516 [place] [address] 03/07/2025 3:00 PM CDT Ancillary Procedure [address] [place] [address] Srinivas Stern PA-C [address] [place] [address] 295635 04/24/2025 2:40 PM CDT Virtual Visit [facility] Gastroenterology Clinic [address] [place] [address] Alexis Torres MD 420 [place], [place] 199995 Srinivas Stern PA-C [address] [place] [address] [phone] 06/05/2025 3:30 PM CDT Virtual Visit [facility] MTM 909 [facility] [address] 2nd [place] [phone] Kayode Ivey MD 516 [facility] [place], [place] 004435 Bandar Casas, [facility] 420 [facility] 812 [place], [place] [phone] documented as of this encounter Visit Diagnoses Not on filedocumented in this encounter Additional Health Concerns Infection Onset Date Last Indicated Resolved Time MRSA-Contact Isolation Comment: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, chest, and elbow 02/17/2016 02/17/2016 Rule Out C-difficile 10/04/2023 10/05/2023 024 7:28 PM TABLE OPERATOR C-difficile 10/05/2023 10/05/2023 11/04/2023 11:3 9 PM TABLE OPERATOR Rule Out C-difficile 09/03/2024 09/04/2024 025 12:45 PM TABLE OPERATOR Assessment Noted Time PHQ-9 Depression Total Score: 9 03/02/20 16 7:16 AM CDT documented as of this encounter Care Teams Oil Spraying Machine Operator Relationship Specialty Start Date End Date Jairo Vasquez MD PCP - General Family Medicine - Sports Medicine 12/29/15 Kylee Dailey MD [address] [place] [address] [address] [place], [place] 012955 Internal Medicine 04/01/17 Kayode Ivey MD 6 [place], [place] 880655 Gastroenterology 04/01/17 Nicolasa Perez APRN WAREHOUSE DELIVERY MANAGER [address] [place] [address] [id number] [place], [place] 834165 Nurse Practitioner Nurse Practitioner 04/28/17 Loyda Dickey, RN Nurse Coordinator Neurology 05/26/17 02/26/19 Srinivsa Stern PA-C [address] [place] [address] [phone] Physician Kitchen Clerk Physician Kitchen Clerk 10/02/18 Srinivas Stern PA-C [address] [place] [address] [phone] Assigned Heart and Vascular Provider 11/19/20 06/27/21 Violet Ta [facility] [address] [place] [address] Pharmacist Pharmacist 12/29/20 02/08/21 Sue Mckeon [facility] [address] [place] [address] [phone] Pharmacist Pharmacist Stereo Compiler 02/09/21 06/29/22 Karen Trinh MD [address] [place] [address] Assigned Infectious Disease Provider 02/08/21 07/30/22 Violet Ta, [facility] [address] [place] [address] [address] [place] [address] Assigned MTM Pharmacist 02/27/22 05/21/22 Violet Ta [facility] 480 [facility] [address] [place] [address] Assigned MTM Pharmacist 06/02/22 07/09/22 Srinivas Stern PA-C 909 [place] [address] Assigned Gastroenterology Provider 07/17/22 Bandar Casas [facility] [address] [phone] Pharmacist Pharmacist 08/18/23 Bandar Casas [facility] [address] [phone] Assigned MTM Pharmacist 08/27/23 Ayana Zhang PA-C [address] [place] [place] [address] [phone] Physician Kitchen Clerk Rheumatology 04/16/24 Srinivas Stern PA-C 909 [place], [place] 094025 Home Infusion Following Provider Gastroenterology 07/11/24 10/05/24 documented as of this encounter
--- OUTSIDE RECORDS SUMMARY | 2025-01-15 15:44 | XMS_ITS | Encounter Summary ---
Author Organization [facility] Address [address] [place] [address]803 Care Team Providers Care Video Network Engineer Name Role Phone Jairo Vasquez MD Primary Care Provider [phone] Kylee Dailey MD Unavailable + Kayode Ivey MD Unavailable [phone] Nicolasa Perez APRN SOLDER SPRAYER Unavaila ble Loyda Dickey RN Unavailable [phone] Srinivas Stern PA-C Unavailable +[phone] Srinivas Stern PA-C Unavailable +[phone] Violet Ta [facility] Unavailable +[phone] Sue Mckeon [facility] Unavailable [phone] Karen Trinh MD Unavailable +[phone] Violet Ta [facility] Unavailable +[phone] Violet Ta [facility] Unavailable +[phone] Srinivas Stern PA-C Unavailable +[phone] Bandar Casas [facility] Unavailable [phone] Bandar Casas [facility] Unavailable [phone] Ayana Zhang PA-C Unavailable [phone] Srinivas Stern PA-C Unavailable [phone] Encounter Details Date Type Department Care Team (Late st Contact Info) Description 10/04/2016 MyC Medical Advice [facility] Gastroenterology and IBD Clinic [address] [place] [address] Kayode Ivey MD 6 [place] [address] Social History Tobacco Use Types Packs/Day Years Used Date Smoking Tobacco: Never Alcohol Use Standard Drinks/Week Comments No 0 (1 standard drink = 0.6 oz pur e alcohol) not currently Sex and Gender Information Value Date Recorded Sex Assigned at Not on file Legal Sex 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 TILE SPRAYER Gender Identity Not on file Sexual Orientation Not on file 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 Plan of Treatment Upcoming Encounters Date Type Department Care Team (Latest Contact Info) Description 02/13/2025 3:20 PM CDT Appointment [facility] Care Center Imaging [address] [facility] [address] [place] [phone] Kayode Ivey MD 6 [place] [address] 03/07/2025 3:00 PM CDT Ancillary Procedure [address] [place] [address] Srinivas Stern PA-C [address] [place] [address] [phone] 04/24/2025 2:40 PM CDT Virtual Visit [facility] Gastroenterology Clinic [address] [address] Alexis Torres MD 420 [place] [address] Srinivas Stern PA-C 909 [place], [place] 108135 06/05/2025 3:30 PM CDT Virtual Visit Viola MADERA MTM 909 [facility] [address] 2nd [place] [phone] Kayode Ivey MD 516 [place] [address] Bandar Casas, [facility] 420 [facility] 812 [place], [place] [phone] documented as of this encounter Visit Diagnoses Not on filedocumented in this encounter Additional Health Concerns Infection Onset Date Last Indicated Resolved Time MRSA-Contact Isolation Comment: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, chest, and elbow 02/17/2016 02/17/2016 Rule Out C-difficile 10/04/2023 10/05/2023 024 7:28 PM TILE SPRAYER C-difficile 10/05/2023 10/05/2023 11/04/2023 11:3 9 PM TILE SPRAYER Rule Out C-difficile 09/03/2024 09/04/2024 025 12:45 PM TILE SPRAYER Assessment Noted Time PHQ-9 Depression Total Score: 9 03/02/20 16 7:16 AM CDT documented as of this encounter Care Teams Video Network Engineer Relationship Specialty Start Date End Date Jairo Vasquez MD PCP - General Family Medicine - Sports Medicine 12/29/15 Kylee Dailey MD [address] [place] [address] 2[address] [place] [address] Internal Medicine 04/01/17 Kayode Ivey MD [address] [place] [address] Gastroenterology 04/01/17 Nicolasa Perez APRN SOLDER SPRAYER [address] [place] [address] [id number] [place], [place] 447285 Nurse Practitioner Nurse Practitioner 04/28/17 Loyda Dickey RN Nurse Coordinator Neurology 05/26/17 02/26/19 Srinivas Stern PA-C [address] [place] [address] [phone] Physician Manager Reporting Physician Manager Reporting 10/02/18 Srinivas Stern PA-C [address] [place] [address] [phone] Assigned Heart and Vascular Provider 11/19/20 06/27/21 Violet Ta [facility] [address] [place] [address] 11828 Pharmacist Pharmacist 12/29/20 02/08/21 Sue Mckeon [facility] [address] [place] [address] [phone] Pharmacist Pharmacist Mission Planner 02/09/21 06/29/22 Karen Trinh MD [address] [place] [address] [phone] Assigned Infectious Disease Provider 02/08/21 07/30/22 Violet Ta [facility] [address] [place] [address] [phone] Assigned MTM Pharmacist 02/27/22 05/21/22 Violet Ta [facility] [address] [place] [address] [address] [place] [address] Assigned MTM Pharmacist 06/02/22 07/09/22 Srinivas Stern PA-C 909 [place] [address] Assigned Gastroenterology Provider 07/17/22 Bandar Casas [facility] [address] [address] Pharmacist Pharmacist 08/18/23 Bandar Casas [facility] [address] [place] [address] Assigned MTM Pharmacist 08/27/23 Ayana Zhang PA-C [address] [place] [address] Physician Manager Reporting Rheumatology 04/16/24 Srinivas Stern PA-C [address] [place] [address] Home Infusion Following Provider Gastroenterology 07/11/24 10/05/24 documented as of this encounter
--- OUTSIDE RECORDS SUMMARY | 2025-01-15 15:44 | XMS_ITS | Encounter Summary ---
Author Organization [facility] Address [address] [place] [address] Care Team Providers Care Director Of Pupil Personnel Program Name Role Phone Jairo Vasquez MD Primary Care Provider [phone] yKlee Dailey MD Unavailable + Kayode Ivey MD Unavailable +[phone] Nicolasa Perez APRN LITHOGRAPHED PLATE INSPECTOR Unavaila ble Loyda Dickey RN Unavailable +[phone] Srinivas Stern PA-C Unavailable +[phone] Srinivas Stern PA-C Unavailable +[phone] Violet Ta [facility] Unavailable +[phone] Sue Mckeon [facility] Unavailable +[phone] Karen Trinh MD Unavailable +[phone] Violet Ta [facility] Unavailable +[phone] Violet Ta [facility] Unavailable +[phone] Srinivas Stern PA-C Unavailable +[phone] Bandar Casas [facility] Unavailable +[phone] Bandar Casas [facility] Unavailable +[phone] Ayana Zhang PA-C Unavailable +[phone] Srinivas Stern PA-C Unavailable [phone] Encounter Details Date Type Department Care Team (Late st Contact Info) Description 08/05/2016 MyC Medical Advice [facility] Gastroenterology and IBD Clinic [address] [place] [address] Kayode Ivey MD 6 [place] [address] Social History Tobacco Use Types Packs/Day Years Used Date Smoking Tobacco: Never Alcohol Use Standard Drinks/Week Comments No 0 (1 standard drink = 0.6 oz pur e alcohol) not currently Sex and Gender Information Value Date Recorded Sex Assigned at Not on file Legal Sex 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 DIRECTOR INDEPENDENT Gender Identity Not on file Sexual Orientation Not on file 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 Plan of Treatment Upcoming Encounters Date Type Department Care Team (Latest Contact Info) Description 02/13/2025 3:20 PM CDT Appointment [facility] Imaging [address] [facility] [address] [place] [phone] Kayode Ivey MD 6 [place] [address] 03/07/2025 3:00 PM CDT Ancillary Procedure [address] [place] [address] Srinivas Stern PA-C [address] [place] [address] [phone] 04/24/2025 2:40 PM CDT Virtual Visit [facility] Gastroenterology Clinic [address] [address] Alexis Torres MD 420 [place] [address] Srinivas Stern PA-C 909 [facility] [place], [place] 592025 06/05/2025 3:30 PM CDT Virtual Visit Viola MADERA MTM 909 [facility] [address] 2nd [place] [phone] Kayode Ivey MD 516 [place] [address] Bandar Casas, [facility] 420 [facility] 812 [place], [place] 329185 documented as of this encounter Visit Diagnoses Not on filedocumented in this encounter Additional Health Concerns Infection Onset Date Last Indicated Resolved Time MRSA-Contact Isolation Comment: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, chest, and elbow 02/17/2016 02/17/2016 Rule Out C-difficile 10/04/2023 10/05/2023 024 7:28 PM DIRECTOR INDEPENDENT C-difficile 10/05/2023 10/05/2023 11/04/2023 11:3 9 PM DIRECTOR INDEPENDENT Rule Out C-difficile 09/03/2024 09/04/2024 025 12:45 PM DIRECTOR INDEPENDENT Assessment Noted Time PHQ-9 Depression Total Score: 9 03/02/20 16 7:16 AM CDT documented as of this encounter Care Teams Director Of Pupil Personnel Program Relationship Specialty Start Date End Date Jairo Vasquez MD PCP - General Family Medicine - Sports Medicine 12/29/15 Kylee Dailey MD [address] [place] [address] 2[address] [place] [address] Internal Medicine 04/01/17 Kayode Ivey MD [address] [place] [address] Gastroenterology 04/01/17 Nicolasa Perez APRN LITHOGRAPHED PLATE INSPECTOR [address] [place] [address] [id number] [place], [place] 171965 Nurse Practitioner Nurse Practitioner 04/28/17 Loyda Dickey RN Nurse Coordinator Neurology 05/26/17 02/26/19 Srinivas Stern PA-C [address] [place] [address] [phone] Physician Boiler Water Tester Physician Boiler Water Tester 10/02/18 Srinivas Stern PA-C [address] [place] [address] [phone] Assigned Heart and Vascular Provider 11/19/20 06/27/21 Violet Ta [facility] [address] [place] [address] Pharmacist Pharmacist 12/29/20 02/08/21 Sue Mckeon [facility] [address] [place] [address] [phone] Pharmacist Pharmacist Pump Erector Helper 02/09/21 06/29/22 Karen Trinh MD [address] [place] [address] [phone] Assigned Infectious Disease Provider 02/08/21 07/30/22 Violet Ta [facility] [address] [place] [address] [phone] Assigned MTM Pharmacist 02/27/22 05/21/22 Violet Ta [facility] [address] [place] [address] [address] [place] [address] Assigned MTM Pharmacist 06/02/22 07/09/22 Srinivas Stern PA-C 909 [place] [address] Assigned Gastroenterology Provider 07/17/22 Badnar Casas RPH [address] [address] Pharmacist Pharmacist 08/18/23 Bandar Casas RPH [address] [place] [address] Assigned MTM Pharmacist 08/27/23 Ayana Zhang PA-C [address] [place] [address] Physician Boiler Water Tester Rheumatology 04/16/24 Srinivas Stern PA-C [address] [place] [address] Home Infusion Following Provider Gastroenterology 07/11/24 10/05/24 documented as of this encounter
--- OUTSIDE RECORDS SUMMARY | 2025-01-15 15:44 | XMS_ITS | Encounter Summary ---
Author Organization [facility] Address [address] [place] [address] Care Team Providers Care Community Educator Name Role Phone Jairo Vasquez MD Primary Care Provider [phone] Kylee Dailey MD Unavailable + Kayode Ivey MD Unavailable [phone] Nicolasa Perez APRN SCREED OPERATOR Unavaila ble Loyda Dickey RN Unavailable +[phone] Srinivas Stern PA-C Unavailable +[phone] Srinivas Stern PA-C Unavailable +[phone] Violet Ta [facility] Unavailable +[phone] Sue Mckeon [facility] Unavailable +[phone] Karen Trinh MD Unavailable +[phone] Violet Ta [facility] Unavailable +[phone] Violet Ta [facility] Unavailable +[phone] Srinivas Stern PA-C Unavailable +[phone] Bandar Casas [facility] Unavailable [phone] Bandar Casas [facility] Unavailable +[phone] Ayana Zhang PA-C Unavailable [phone] Srinivas Stern PA-C Unavailable Encounter Details Date Type Department Care Team (Late st Contact Info) Description 10/04/2016 MyC Medical Advice [facility] Gastroenterology and IBD Clinic [address] [place] [address] Kayode Ivey MD 6 [place] [address] Social History Tobacco Use Types Packs/Day Years Used Date Smoking Tobacco: Never Alcohol Use Standard Drinks/Week Comments No 0 (1 standard drink = 0.6 oz pur e alcohol) not currently Sex and Gender Information Value Date Recorded Sex Assigned at Not on file Legal Sex 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 WOOD STOCK BLANK HANDLER Gender Identity Not on file Sexual Orientation Not on file 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 Plan of Treatment Upcoming Encounters Date Type Department Care Team (Latest Contact Info) Description 02/13/2025 3:20 PM CDT Appointment [facility] Imaging [address] [facility] [address] [place] [phone] Kayode Ivey MD 6 [place] [address] 03/07/2025 3:00 PM CDT Ancillary Procedure [address] [place] [address] Srinivas Stern PA-C [address] [place] [address] [phone] 04/24/2025 2:40 PM CDT Virtual Visit [facility] Gastroenterology Clinic [address] [address] Alexis Torres MD 420 [place] [address] Srinivas Stern PA-C 909 [place], [place] 848405 06/05/2025 3:30 PM CDT Virtual Visit Viola MADERA MTM 909 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, chest, and elbow 02/17/2016 02/17/2016 Rule Out C-difficile 10/04/2023 10/05/2023 024 7:28 PM WOOD STOCK BLANK HANDLER C-difficile 10/05/2023 10/05/2023 11/04/2023 11:3 9 PM WOOD STOCK BLANK HANDLER Rule Out C-difficile 09/03/2024 09/04/2024 025 12:45 PM WOOD STOCK BLANK HANDLER Assessment Noted Time PHQ-9 Depression Total Score: 9 03/02/20 16 7:16 AM CDT documented as of this encounter Care Teams Community Educator Relationship Specialty Start Date End Date Jairo Vasquez MD PCP - General Family Medicine - Sports Medicine 12/29/15 Kylee Dailey MD [address] [place] [address] 2[address] [place] [address] Internal Medicine 04/01/17 Kayode Ivey MD [address] [place] [address] Gastroenterology 04/01/17 Nicolasa Perez APRN SCREED OPERATOR [address] [place] [address] [id number] [place], [place] 765375 Nurse Practitioner Nurse Practitioner 04/28/17 Loyda Dickey RN Nurse Coordinator Neurology 05/26/17 02/26/19 Srinivas Stern PA-C [address] [place] [address] [phone] Physician Selling Specialist Physician Selling Specialist 10/02/18 Srinivas Stern PA-C [address] [place] [address] [phone] Assigned Heart and Vascular Provider 11/19/20 06/27/21 Violet Ta [facility] [address] [place] [address] Pharmacist Pharmacist 12/29/20 02/08/21 Sue Mckeon [facility] [address] [place] [address] 424055 Pharmacist Pharmacist Enginehouse Brakeman 02/09/21 06/29/22 Karen Trinh MD [address] [place] [address] [phone] Assigned Infectious Disease Provider 02/08/21 07/30/22 Violet Ta [facility] [address] [place] [address] [phone] Assigned MTM Pharmacist 02/27/22 05/21/22 Violet Ta [facility] [address] [place] [address] [address] [place] [address] Assigned MTM Pharmacist 06/02/22 07/09/22 Srinivas Stern PA-C 909 [place] [address] Assigned Gastroenterology Provider 07/17/22 Bandar Casas RPH [address] [address] Pharmacist Pharmacist 08/18/23 Bandar Casas RPH [address] [place] [address] Assigned MTM Pharmacist 08/27/23 Ayana Zhang PA-C [address] [place] [address] Physician Selling Specialist Rheumatology 04/16/24 Srinivas Stern PA-C [address] [place] [address] Home Infusion Following Provider Gastroenterology 07/11/24 10/05/24 documented as of this encounter
--- OUTSIDE RECORDS SUMMARY | 2025-01-15 15:44 | XMS_ITS | Encounter Summary ---
Author Organization [facility] Address [address] [place] [address] Care Team Providers Care Medical Director Of Hospice Name Role Phone Jairo Vasquez MD Primary Care Provider [phone] Kylee Dailey MD Unavailable + Kayode Ivey MD Unavailable +[phone] Nicolasa Perez APRN HOSPITAL CLERK Unavaila ble Loyda Dickey RN Unavailable +[phone] Srinivas Stern PA-C Unavailable +[phone] Srinivas Stern PA-C Unavailable +[phone] Violet Ta [facility] Unavailable +[phone] Sue Mckeon [facility] Unavailable +[phone] Karen Trinh MD Unavailable +[phone] Violet Ta [facility] Unavailable +[phone] Violet Ta [facility] Unavailable +[phone] Srinivas Stern PA-C Unavailable +[phone] Bandar Casas [facility] Unavailable +[phone] Bandar Casas [facility] Unavailable +[phone] Ayana Zhang PA-C Unavailable [phone] Srinivas Stern PA-C Unavailable Encounter Details Date Type Department Care Team (Late st Contact Info) Description 07/11/2017 MyC Medical Advice [facility] Gastroenterology and IBD Clinic [address] [place] [address] Kayode Ivey MD 6 [place], [place] 190665 Social History Tobacco Use Types Packs/Day Years Used Date Smoking Tobacco: Never Smokeless Tobacco: Never Alcohol Use Standard Drinks/Week Comments Yes 13 (1 standard drink = 0.6 oz pu re alcohol) MONTHLY Sex and Gender Information Value Date Recorded Sex Assigned at Not on file Legal Sex 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 DIE CAST PATTERNMAKER Gender Identity Not on file Sexual Orientation Not on file 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 Plan of Treatment Upcoming Encounters Date Type Department Care Team (Latest Contact Info) Description 02/13/2025 3:20 PM CDT Appointment [facility] Imaging [address] [facility] [address] [place] [phone] Kayode Ivey MD 6 [place] [address] 03/07/2025 3:00 PM CDT Ancillary Procedure [address] [place] [address] Srinivas Stern PA-C 9 [place], [place] [phone] 04/24/2025 2:40 PM CDT Virtual Visit [facility] Gastroenterology Clinic [address] [address] Alexis Torres MD 420 [place] [address] Srinivas Stern PA-C 909 [place], [place] [phone] 06/05/2025 3:30 PM CDT Virtual Visit Viola MADERA [facility] 909 [facility] 2nd [place] [phone] Kayode Ivey MD 516 [place] [address] Bandar Casas, [facility] 420 [facility] 812 [place] [address] documented as of this encounter Visit Diagnoses Not on filedocumented in this encounter Additional Health Concerns Infection Onset Date Last Indicated Resolved Time MRSA-Contact Isolation Comment: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, chest, and elbow 02/17/2016 02/17/2016 Rule Out C-difficile 10/04/2023 10/05/2023 024 7:28 PM DIE CAST PATTERNMAKER C-difficile 10/05/2023 10/05/2023 11/04/2023 11:3 9 PM DIE CAST PATTERNMAKER Rule Out C-difficile 09/03/2024 09/04/2024 025 12:45 PM DIE CAST PATTERNMAKER Assessment Noted Time PHQ-9 Depression Total Score: 9 03/02/20 16 7:16 AM CDT documented as of this encounter Care Teams Medical Director Of Hospice Relationship Specialty Start Date End Date Jairo Vasquez MD PCP - General Family Medicine - Sports Medicine 12/29/15 Kylee Dailey MD [address] [place] [address] 2A [place], [place] [phone] Internal Medicine 04/01/17 Kayode Ivey MD [address] [place] [address] Gastroenterology 04/01/17 Nicolasa Perez APRN HOSPITAL CLERK [address] [place] [address] [id number] [place], [place] 588805 Nurse Practitioner Nurse Practitioner 04/28/17 Loyda Dickey RN Nurse Coordinator Neurology 05/26/17 02/26/19 Srinivas Stern PA-C [address] [place] [address] Physician Stretcher And Drier Physician Stretcher And Drier 10/02/18 Srinivas Stern PA-C [address] [place] [address] Assigned Heart and Vascular Provider 11/19/20 06/27/21 Violet Ta [facility] [address] [place] [address] Pharmacist Pharmacist 12/29/20 02/08/21 Sue Mckeon [facility] [address] [place] [address] [phone] Pharmacist Pharmacist Wheel Installer 02/09/21 06/29/22 Karen Trinh MD [address] [place] [address] [phone] Assigned Infectious Disease Provider 02/08/21 07/30/22 Violet Ta [facility] [address] [place] [address] 96 [place], [place] [phone] Assigned MTM Pharmacist 02/27/22 05/21/22 Violet Ta [facility] 480 [facility] [address] [place] [address] Assigned MTM Pharmacist 06/02/22 07/09/22 Srinivas Stern PA-C [address] [place] [address] Assigned Gastroenterology Provider 07/17/22 Bandar Casas RPH 420 [facility] 812 [place] [address] Pharmacist Pharmacist 08/18/23 Bandar Casas RP [address] [address] Assigned MTM Pharmacist 08/27/23 Ayana Zhang PA-C [address] [place] [address] Physician Stretcher And Drier Rheumatology 04/16/24 Srinivas Stern PA-C 909 [place] [address] Home Infusion Following Provider Gastroenterology 07/11/24 10/05/24 documented as of this encounter
--- OUTSIDE RECORDS SUMMARY | 2025-01-15 15:44 | XMS_ITS | Encounter Summary ---
Author Organization [facility] Address [address] [place] [address] Care Team Providers Care Drafter Electronic Name Role Phone Jairo Vasquez MD Primary Care Provider [phone] Kylee Dailey MD Unavailable + Kayode Ivey MD Unavailable [phone] Nicolasa Perez APRN DERMATOPATHOLOGIST Unavaila ble Loyda Dickey RN Unavailable +[phone] Srinivas Stern PA-C Unavailable +[phone] Srinivas Stern PA-C Unavailable +[phone] Violet Ta [facility] Unavailable +[phone] Sue Mckeon [facility] Unavailable +[phone] Karen Trinh MD Unavailable +[phone] Violet Ta [facility] Unavailable +[phone] Violet Ta [facility] Unavailable +[phone] Srinivas Stern PA-C Unavailable +[phone] Bandar Casas [facility] Unavailable +[phone] Bandar Casas [facility] Unavailable Ayana Zhang PA-C Unavailable [phone] Srinivas Stern PA-C Unavailable [phone] Encounter Details Date Type Department Care Team (Late st Contact Info) Description 03/02/2016 MyC Medical Advice [facility] Gastroenterology and IBD Clinic [address] [place] [phone] Blanca Menezes, RN Social History Tobacco Use Types Packs/Day Years Used Date Smoking Tobacco: Never Alcohol Use Standard Drinks/Week Comments No 0 (1 standard drink = 0.6 oz pur e alcohol) not currently Sex and Gender Information Value Date Recorded Sex Assigned at Not on file 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 Sex 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 BED LABORER Gender Identity Not on file Sexual Orientation Not on file 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 Plan of Treatment Upcoming Encounters Date Type Department Care Team (Latest Contact Info) Description 02/13/2025 3:20 PM CDT Appointment [facility] Imaging [address] [facility] [address] [place] [phone] Kayode Ivey MD 516 [place] [address] 03/07/2025 3:00 PM CDT Ancillary Procedure [facility] [address] [facility] [address] [place] [address] Srinivas Stern PA-C [address] [place] [address] [phone] 04/24/2025 2:40 PM CDT Virtual Visit [facility] Gastroenterology Clinic [address] [address] Alexis Torres MD 420 [place], [place] [phone] Srinivas Stern PA-C [address] [place] [address] [phone] 06/05/2025 3:30 PM CDT Virtual Visit [facility] MTM 909 [facility] [address] 2nd [place] [address] Kayode Ivey MD 516 [place], [place] 559785 Bandar Casas, [facility] 420 [facility] 812 [place], [place] 555625 documented as of this encounter Visit Diagnoses Not on filedocumented in this encounter Additional Health Concerns Infection Onset Date Last Indicated Resolved Time MRSA-Contact Isolation Comment: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, chest, and elbow 02/17/2016 02/17/2016 Rule Out C-difficile 10/04/2023 10/05/2023 024 7:28 PM BED LABORER C-difficile 10/05/2023 10/05/2023 11/04/2023 11:3 9 PM BED LABORER Rule Out C-difficile 09/03/2024 09/04/2024 025 12:45 PM BED LABORER Assessment Noted Time PHQ-9 Depression Total Score: 9 03/02/20 16 7:16 AM CDT documented as of this encounter Care Teams Drafter Electronic Relationship Specialty Start Date End Date Jairo Vasquez MD PCP - General Family Medicine - Sports Medicine 12/29/15 Kylee Dailey MD [address] [place], [place] [address]B 2A [place], [place] [phone] Internal Medicine 04/01/17 Kayode Ivey MD [address] [place] [address] Gastroenterology 04/01/17 Nicolasa Perez, MAP MAKER DERMATOPATHOLOGIST [address] [place] [address] [id number] [place] [address] Nurse Practitioner Nurse Practitioner 04/28/17 Loyda Dickey, RN Nurse Coordinator Neurology 05/26/17 02/26/19 Srinivas Stern PA-C [address] [place] [address] Physician Supervisor Belt And Link Assembly Physician Supervisor Belt And Link Assembly 10/02/18 Srinivas Stern PA-C [address] [place] [address] Assigned Heart and Vascular Provider 11/19/20 06/27/21 [facility] [address] [place] [address] Pharmacist Pharmacist 12/29/20 02/08/21 Sue Mckeon [facility] [address] [place] [address] Pharmacist Pharmacist Jewel Diameter Gauger 02/09/21 06/29/22 Karen Trinh MD [address] [place] [address] 87[address] Assigned Infectious Disease Provider 02/08/21 07/30/22 Violet Ta, [facility] [address] [place] [address] Assigned MTM Pharmacist 02/27/22 05/21/22 Violet Ta [facility] [address] [place] [address] Assigned MTM Pharmacist 06/02/22 07/09/22 Srinivas Stern PA-C 909 [place] [address] Assigned Gastroenterology Provider 07/17/22 Bandar Casas [facility] [address] 106905 Pharmacist Pharmacist 08/18/23 Bandar Casas [facility] [address] [phone] Assigned MTM Pharmacist 08/27/23 Ayana Zhang PA-C 5200 [place] [address] Physician Supervisor Belt And Link Assembly Rheumatology 04/16/24 Srinivas Stern PA-C 909 [place] [address] Home Infusion Following Provider Gastroenterology 07/11/24 10/05/24 documented as of this encounter
--- OUTSIDE RECORDS SUMMARY | 2025-01-15 15:44 | XMS_ITS | Encounter Summary ---
Author Organization [place] Address [address] [place] [address] Care Team Providers Care Editorial Clerk Name Role Phone Jairo Vasquez MD Primary Care Provider [phone] Kylee Dailey MD Unavailable + Kayode Ivey MD Unavailable +[phone] Nicolasa Perez APRN STADIUM ATTENDANT Unavaila ble Loyda Dickey RN Unavailable +[phone] Srinivas Stern PA-C Unavailable +[phone] Srinivas Stern PA-C Unavailable +[phone] Violet Ta [facility] Unavailable +[phone] Sue Mckeon [facility] Unavailable +[phone] Karen Trinh MD Unavailable +[phone] Violet Ta [facility] Unavailable +[phone] Violet Ta [facility] Unavailable +[phone] Srinivas Stern PA-C Unavailable +[phone] Bandar Casas [facility] Unavailable +[phone] Bandar Casas [facility] Unavailable Ayana Zhang PA-C Unavailable +[phone] Srinivas Stern PA-C Unavailable [phone] Encounter Details Date Type Department Care Team (Late st Contact Info) Description 07/29/2017 MyC Medical Advice [facility] Neurology [address] [place] [address] 3rd [place] [address] Eliu Perezmila Pengshameka, CURB ATTENDANT STADIUM ATTENDANT 909 [facility] [id number] [address] Social History Tobacco Use Types Packs/Day Years Used Date Smoking Tobacco: Never Smokeless Tobacco: Never Alcohol Use Standard Drinks/Week Comments Yes 13 (1 standard drink = 0.6 oz pu re alcohol) MONTHLY Sex and Gender Information Value Date Recorded Sex Assigned at Not on file 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 [address] [facility] [address] [place] [address] Srinivas Stern PA-C 9 [place] [address] 04/24/2025 2:40 PM CDT Virtual Visit [facility] Gastroenterology Clinic [address]th [place] [address] Alexis Torres MD 420 [place] [address] Srinivas Stern PA-C 909 [place] [address] 06/05/2025 3:30 PM CDT Virtual Visit Jose MADERA MT 909 [facility] [address] 2nd [place] [phone] Kayode Ivey MD 516 [place] [address] Bandar Casas, [facility] 420 [facility] 812 [place] [address] documented as of this encounter Visit Diagnoses Not on filedocumented in this encounter Additional Health Concerns Infection Onset Date Last Indicated Resolved Time MRSA-Contact Isolation Comment: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, chest, and elbow 02/17/2016 02/17/2016 Rule Out C-difficile 10/04/2023 10/05/2023 024 7:28 PM CUTTER GRINDER OPERATOR C-difficile 10/05/2023 10/05/2023 11/04/2023 11:3 9 PM CUTTER GRINDER OPERATOR Rule Out C-difficile 09/03/2024 09/04/2024 025 12:45 PM CUTTER GRINDER OPERATOR Assessment Noted Time PHQ-9 Depression Total Score: 9 03/02/20 16 7:16 AM CDT documented as of this encounter Care Teams Editorial Clerk Relationship Specialty Start Date End Date Jairo Vasquez MD PCP - General Family Medicine - Sports Medicine 12/29/15 Kylee Dailey MD [address] [place] [address] [id number] Internal Medicine 04/01/17 Kayode Ivey MD [address] [place] [address] [phone] Gastroenterology 04/01/17 Nicolasa Perez APRN STADIUM ATTENDANT [address] [place] [address] [id number] [place] [address] Nurse Practitioner Nurse Practitioner 04/28/17 Loyda Dickey RN Nurse Coordinator Neurology 05/26/17 02/26/19 Srinivas Stern PA-C [address] [place] [address] [phone] Physician Director Of Sports Performance Physician Director Of Sports Performance 10/02/18 Srinivas Stern PA-C [address] [place] [address] 460065 Assigned Heart and Vascular Provider 11/19/20 06/27/21 Violet Ta [facility] [address] [place] [address] Pharmacist Pharmacist 12/29/20 02/08/21 Sue Mckeon [facility] [address] [place] [address] 0[address] Pharmacist Pharmacist Sales Account Director 02/09/21 06/29/22 Karen Trinh MD [address] [place] [address] 88199 Assigned Infectious Disease Provider 02/08/21 07/30/22 Violet Ta [facility] [address] [place] [address] 558[address] Assigned MTM Pharmacist 02/27/22 05/21/22 Violet Ta [facility] [address] [place] [address] Assigned MTM Pharmacist 06/02/22 07/09/22 Srinivas Stern PA-C 909 [place] [address] Assigned Gastroenterology Provider 07/17/22 Bandar Casas RPH [address] [address] Pharmacist Pharmacist 08/18/23 Bandar Casas RPH [address] [address] Assigned MTM Pharmacist 08/27/23 Ayana Zhang PA-C 5200 [place] [address] Physician Director Of Sports Performance Rheumatology 04/16/24 Srinivas Stern PA-C 909 [place], [place] 400305 Home Infusion Following Provider Gastroenterology 07/11/24 10/05/24 documented as of this encounter
--- OUTSIDE RECORDS SUMMARY | 2025-01-15 15:44 | XMS_ITS | Encounter Summary ---
Author Organization [place] Address [address] [place] [address]. [place] [address] Care Team Providers Care Motor Patrol Operator Name Role Phone Jairo Vasquez MD Primary Care Provider Kylee Dailey MD Unavailable + Kayode Ivey MD Unavailable [phone] Nicolasa Perez APRN PRESSROOM FOREMAN Unavaila ble Srinivas Stern-C Unavailable [phone] Srinivas Stern-C Unavailable [phone] Bandar Casas [facility] Unavailable Bandar Casas [facility] Unavailable Ayana Zhang-C Unavailable PitSrinivas mcintosh-C Unavailable [phone] Encounter Details Date Type Department Care Team (Late st Contact Info) Description 01/16/2024 [facility] Medical Advice [facility] Gastroenterology Clinic [address] 4th [place] [address] Silvana Rodríguez Social History Tobacco Use Types Packs/Day Years [...] on file Legal Sex 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 LEAD CARPENTER Gender Identity Not on file Sexual Orientation Not on file 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 Plan of Treatment Upcoming Encounters Date Type Department Care Team (Latest Contact Info) Description 02/13/2025 3:20 PM CDT Appointment [facility] Imaging [address] [facility] [address] [place] [address] Kayode Ivey MD [address] [place] [address] 03/07/2025 3:00 PM CDT Ancillary Procedure [address] [place] [address] Srinivas Stern PA-C [address] [place] [address] [id number] 04/24/2025 2:40 PM CDT Virtual Visit [facility] Gastroenterology Clinic [address] 4th [place] [address] Alexis Torres MD 420 [place], [place] 142195 Srinivas Stern PA-C [address] [place] [address] [phone] 06/05/2025 3:30 PM CDT Virtual Visit [facility] GI [address] 2nd [place] [address] Kayode Ivey MD [address] [place] [address] 827555 Bandar Casas RPH 420 [facility] 812 [place] [address] documented as of this encounter Visit Diagnoses Not on filedocumented in this encounter Additional Health Concerns Infection Onset Date Last Indicated Resolved Time MRSA-Contact Isolation Comment: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, chest, and elbow 02/17/2016 02/17/2016 Rule Out C-difficile 09/03/2024 09/04/2024 025 12:45 PM LEAD CARPENTER Assessment Noted Time PHQ-9 Depression Total Score: 9 03/02/20 16 7:16 AM CDT documented as of this encounter Care Teams Motor Patrol Operator Relationship Specialty Start Date End Date Jairo Vasquez MD PCP - General Family Medicine - Sports Medicine 12/29/15 Kylee Dailey MD [address] [place] [address] 2A [place], [place] 288385 Internal Medicine 04/01/17 Kayode Ivey MD [address] [place] [address] 088685 Gastroenterology 04/01/17 Nicolasa Perez, INSTRUMENT MAKER APPRENTICE PRESSROOM FOREMAN [address] [place], [place] [id number] [place], [place] 612[address] Nurse Practitioner Nurse Practitioner 04/28/17 Srinivas Stern PA-C [address] [place] [address] 703015 Physician Contract Modeler Physician Contract Modeler 10/02/18 Srinivas Stern PA-C [address] [place] [address] 06128 Assigned Gastroenterology Provider 07/17/22 Bandar Casas [facility] [address] 247112 [place], [place] [phone] Pharmacist Pharmacist 08/18/23 Bandar Casas [facility] [address] [phone] Assigned MTM Pharmacist 08/27/23 Ayana Zhang PA-C 5200 [place] [address] Physician Contract Modeler Rheumatology 04/16/24 Srinivas Stern PA-C 909 [place], [place] 734005 Home Infusion Following Provider Gastroenterology 07/11/24 10/05/24 documented as of this encounter
--- OUTSIDE RECORDS SUMMARY | 2025-01-15 15:44 | XMS_ITS | Encounter Summary ---
Author Organization [place] Address [address] [place] [address] Care Team Providers Care Spring Production Supervisor Name Role Phone Jairo Vasquez MD Primary Care Provider [phone] Kylee Dailey MD Unavailable + Kayode Ivey MD Unavailable [phone] Nicolasa Perez APRN BLACKSMITH SUPERVISOR Unavaila ble Loyda Dickey RN Unavailable +[phone] Srinivas Stern PA-C Unavailable +[phone] Srinivas Stern PA-C Unavailable +[phone] Violet Ta [facility] Unavailable +[phone] Sue Mckeon [facility] Unavailable +[phone] Karen Trinh MD Unavailable +[phone] Violet Ta [facility] Unavailable +[phone] Violet Ta [facility] Unavailable +[phone] Srinivas Stern PA-C Unavailable +[phone] Bandar Casas [facility] Unavailable [phone] Bandar Casas [facility] Unavailable Ayana Zhang PA-C Unavailable [phone] Srinivas Stern PA-C Unavailable [phone] Encounter Details Date Type Department Care Team (Late st Contact Info) Description 03/11/2016 MyC Medical Advice [facility] Gastroenterology and IBD Clinic [address] [place] [address] Kayode Ivey MD 6 [place] [address] Social History Tobacco Use Types Packs/Day Years Used Date Smoking Tobacco: Never Alcohol Use Standard Drinks/Week Comments No 0 (1 standard drink = 0.6 oz pur e alcohol) not currently Sex and Gender Information Value Date Recorded Sex Assigned at Not on file Legal Sex 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 MANAGER SWITCH Gender Identity Not on file Sexual Orientation Not on file 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 Imaging [address] [facility] [address] [place] [phone] Kayode Ivey MD 6 [place] [address] 03/07/2025 3:00 PM CDT Ancillary Procedure [address] [place] [address] Srinivas tSern PA-C [address] [place] [address] [id number] 04/24/2025 2:40 PM CDT Virtual Visit [facility] Gastroenterology Clinic [address] [address] Alexis Torres MD 420 [place] [address] Srinivas Stern PA-C 909 [place], [place] 504225 06/05/2025 3:30 PM CDT Virtual Visit Viola MADERA MTM 909 [facility] SE 2nd [place] [phone] Kayode Ivey MD 516 [place] [address] Bandar Casas, [facility] 420 [facility] 812 [place], [place] 337685 documented as of this encounter Visit Diagnoses Not on filedocumented in this encounter Additional Health Concerns Infection Onset Date Last Indicated Resolved Time MRSA-Contact Isolation Comment: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, chest, and elbow 02/17/2016 02/17/2016 Rule Out C-difficile 10/04/2023 10/05/2023 024 7:28 PM MANAGER SWITCH C-difficile 10/05/2023 10/05/2023 11/04/2023 11:3 9 PM MANAGER SWITCH Rule Out C-difficile 09/03/2024 09/04/2024 025 12:45 PM MANAGER SWITCH Assessment Noted Time PHQ-9 Depression Total Score: 9 03/02/20 16 7:16 AM CDT documented as of this encounter Care Teams Spring Production Supervisor Relationship Specialty Start Date End Date Jairo Vasquez MD PCP - General Family Medicine - Sports Medicine 12/29/15 Kylee Dailey MD [address] [place] [address] 2A [place] [address] Internal Medicine 04/01/17 Kayode Ivey MD [address] [place] [address] Gastroenterology 04/01/17 Nicolasa Perez APRN BLACKSMITH SUPERVISOR [address] [place] [address] [id number] [place], [place] 148035 Nurse Practitioner Nurse Practitioner 04/28/17 Loyda Dickey RN Nurse Coordinator Neurology 05/26/17 02/26/19 Srinivas Stern PA-C [address] [place] [address] [phone] Physician Research Test Engine Evaluator Physician Research Test Engine Evaluator 10/02/18 Srinivas Stern PA-C [address] [place] [address] 529105 Assigned Heart and Vascular Provider 11/19/20 06/27/21 Violet Ta [facility] [address] [place] [address] 737[address] Pharmacist Pharmacist 12/29/20 02/08/21 Sue Mckeon [facility] [address] [place] [address] 274885 Pharmacist Pharmacist Seal Extrusion Operator 02/09/21 06/29/22 Karen Trinh MD [address] [place] [address] [phone] Assigned Infectious Disease Provider 02/08/21 07/30/22 Violet Ta [facility] [address] [place] [address] [phone] Assigned MTM Pharmacist 02/27/22 05/21/22 Violet Ta [facility] [address] [place] [address] [address] [place] [address] Assigned MTM Pharmacist 06/02/22 07/09/22 Srinivas Stern PA-C 909 [place] [address] Assigned Gastroenterology Provider 07/17/22 Bandar Casas RPH [address] [address] Pharmacist Pharmacist 08/18/23 Bandar Casas RPH [address] [place] [address] Assigned MTM Pharmacist 08/27/23 Ayana Zhang PA-C [address] [place] [address] Physician Research Test Engine Evaluator Rheumatology 04/16/24 Srinivas Stern PA-C [address] [place] [address] Home Infusion Following Provider Gastroenterology 07/11/24 10/05/24 documented as of this encounter
--- OUTSIDE RECORDS SUMMARY | 2025-01-15 15:44 | XMS_ITS | Encounter Summary ---
Author Organization [place] Address [address] [place] [address] Care Team Providers Care Custodian Athletic Equipment Name Role Phone Jairo Vasquez MD Primary Care Provider [phone] Kylee Dailey MD Unavailable + Kayode Ivey MD Unavailable [phone] Nicolasa Perez APRN BOBBIN DUMPER Unavaila ble Loyda Dickey RN Unavailable [phone] Srinivas Stern PA-C Unavailable [phone] Srinivas Stern PA-C Unavailable +[phone] Violet Ta [facility] Unavailable +[phone] Sue Mckeon [facility] Unavailable [phone] Karen Trinh MD Unavailable +[phone] Violet Ta [facility] Unavailable +[phone] Violet Ta [facility] Unavailable +[phone] Srinivas Stern PA-C Unavailable +[phone] Bandar Casas [facility] Unavailable [phone] Bandar Casas [facility] Unavailable Ayana Zhang PA-C Unavailable [phone] Srinivas Stern PA-C Unavailable Encounter Details Date Type Department Care Team (Late st Contact Info) Description 03/19/2017 MyC Medical Advice [facility] Gastroenterology and IBD Clinic [address] [place] [address] Kayode Ivey MD 6 [place] [address] Social History Tobacco Use Types Packs/Day Years Used Date Smoking Tobacco: Never Alcohol Use Standard Drinks/Week Comments No 0 (1 standard drink = 0.6 oz pur e alcohol) not currently Sex and Gender Information Value Date Recorded Sex Assigned at Not on file Legal Sex 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 DISSOLVER OPERATOR Gender Identity Not on file Sexual Orientation Not on file 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 Gastroenterology Clinic [address] [address] Alexis Torres MD 420 [place] [address] Srinivas Stern PA-C 909 [place], [place] 604505 06/05/2025 3:30 PM CDT Virtual Visit Viola MADERA MTM 909 [facility] SE 2nd [place] [phone] Kayode Ivey MD 516 [place] [address] Bandar Casas, [facility] 420 [facility] 812 [place], [place] [phone] documented as of this encounter Visit Diagnoses Not on filedocumented in this encounter Additional Health Concerns Infection Onset Date Last Indicated Resolved Time MRSA-Contact Isolation Comment: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, chest, and elbow 02/17/2016 02/17/2016 Rule Out C-difficile 10/04/2023 10/05/2023 024 7:28 PM DISSOLVER OPERATOR C-difficile 10/05/2023 10/05/2023 11/04/2023 11:3 9 PM DISSOLVER OPERATOR Rule Out C-difficile 09/03/2024 09/04/2024 025 12:45 PM DISSOLVER OPERATOR Assessment Noted Time PHQ-9 Depression Total Score: 9 03/02/20 16 7:16 AM CDT documented as of this encounter Care Teams Custodian Athletic Equipment Relationship Specialty Start Date End Date Jairo Vasquez MD PCP - General Family Medicine - Sports Medicine 12/29/15 Kylee Dailey MD [address] [place] [address] 2A [place] [address] Internal Medicine 04/01/17 Kayode Ivey MD [address] [place] [address] Gastroenterology 04/01/17 Nicolasa Perez APRN BOBBIN DUMPER [address] [place] [address] [id number] [place], [place] 880725 Nurse Practitioner Nurse Practitioner 04/28/17 Loyda Dickey RN Nurse Coordinator Neurology 05/26/17 02/26/19 Srinivas Stern PA-C [address] [place] [address] [phone] Physician Emergency Department Manager Physician Emergency Department Manager 10/02/18 Srinivas Stern PA-C [address] [place] [address] 259155 Assigned Heart and Vascular Provider 11/19/20 06/27/21 Violet Ta [facility] [address] [place] [address] Pharmacist Pharmacist 12/29/20 02/08/21 Sue Mckeon [facility] [address] [place] [address] [phone] Pharmacist Pharmacist Work Car Operator 02/09/21 06/29/22 Karen Trinh MD [address] [place] [address] [phone] Assigned Infectious Disease Provider 02/08/21 07/30/22 Violet Ta [facility] [address] [place] [address] [phone] Assigned MTM Pharmacist 02/27/22 05/21/22 Violet Ta [facility] [address] [place] [address] [address] [place] [address] Assigned MTM Pharmacist 06/02/22 07/09/22 Srinivas Stern PA-C 909 [place] [address] Assigned Gastroenterology Provider 07/17/22 Bandar Casas RPH [address] [address] Pharmacist Pharmacist 08/18/23 Bandar Casas RPH [address] [place] [address] Assigned MTM Pharmacist 08/27/23 Ayana Zhang PA-C [address] [place] [address] Physician Emergency Department Manager Rheumatology 04/16/24 Srinivas Stern PA-C [address] [place] [address] Home Infusion Following Provider Gastroenterology 07/11/24 10/05/24 documented as of this encounter
--- OUTSIDE RECORDS SUMMARY | 2025-01-15 15:44 | XMS_ITS | Encounter Summary ---
Author Organization [place] Address [address] [place] [address]. [place] [address] Care Team Providers Care Health Outcomes Liaison Name Role Phone Jairo Vasquez MD Primary Care Provider Kylee Dailey MD Unavailable + Kayode Ivey MD Unavailable [phone] Nicolasa Perez APRN PLASTERER MAINTENANCE Unavaila ble Srinivas Stern-C Unavailable [phone] Srinivas Stern-C Unavailable Bandar Casas [facility] Unavailable Bandar Casas [facility] Unavailable Ayana Zhang-C Unavailable Srinivas Stern-C Unavailable [phone] Encounter Details Date Type Department Care Team (Late st Contact Info) Description 04/10/2024 [facility] Medical Advice [facility] Gastroenterology Clinic [address] 4th [place] [address] Alfreda Lorenzo RN Social History Tobacco Use Types Packs/Day [...] on file Legal Sex 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 ANGLEDOZER OPERATOR Gender Identity Not on file Sexual Orientation Not on file 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 Plan of Treatment Upcoming Encounters Date Type Department Care Team (Latest Contact Info) Description 02/13/2025 3:20 PM CDT Appointment [facility] Imaging [address] [facility] [address] [place] [phone] Kayode Ivey MD [address] [place] [address] [phone] 03/07/2025 3:00 PM CDT Ancillary Procedure [address] [place] [address] Srinivas Stern PA-C [address] [place] [address] 801385 04/24/2025 2:40 PM CDT Virtual Visit [facility] Gastroenterology Clinic [address]th [place] [phone] Alexis Torres MD 420 [place], [place] 996935 Srinivas Stern PA-C [address] [place] [address] [phone] 06/05/2025 3:30 PM CDT Virtual Visit [facility] GI [address]nd [place] [phone] Kayode Ivey MD [address] [place] [address] 772195 Bandar Casas RPH 420 [facility] 812 [place] [address] documented as of this encounter Visit Diagnoses Not on filedocumented in this encounter Additional Health Concerns Infection Onset Date Last Indicated Resolved Time MRSA-Contact Isolation Comment: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, chest, and elbow 02/17/2016 02/17/2016 Rule Out C-difficile 09/03/2024 09/04/2024 025 12:45 PM ANGLEDOZER OPERATOR Assessment Noted Time PHQ-9 Depression Total Score: 9 03/02/20 16 7:16 AM CDT documented as of this encounter Care Teams Health Outcomes Liaison Relationship Specialty Start Date End Date Jairo Vasquez MD PCP - General Family Medicine - Sports Medicine 12/29/15 Kylee Dailey MD [address] [place] [address] 2A [place], [place] 388555 Internal Medicine 04/01/17 Kayode Ivey MD [address] [place] [address] 024815 Gastroenterology 04/01/17 Nicolasa Perez APRN PLASTERER MAINTENANCE [address] [place], [place] [address]121CJ [place] [address] Nurse Practitioner Nurse Practitioner 04/28/17 Srinivas Stern PA-C [address] [place] [address] [phone] Physician Maple Products Maker Physician Maple Products Maker 10/02/18 Srinivas Stern PA-C [address] [place] [address] [phone] Assigned Gastroenterology Provider 07/17/22 Bandar Casas RPH [address] 046505 Pharmacist Pharmacist 08/18/23 Bandar Casas RP [address] [phone] Assigned MTM Pharmacist 08/27/23 Ayana Zhang PA-C 5200 [place] [address] Physician Maple Products Maker Rheumatology 04/16/24 Srinivas Stern PA-C 909 [place], [place] 747715 Home Infusion Following Provider Gastroenterology 07/11/24 10/05/24 documented as of this encounter
--- OUTSIDE RECORDS SUMMARY | 2025-01-15 15:44 | XMS_ITS | Encounter Summary ---
Author Organization [place] Address [address] [place] [address]47 Care Team Providers Care Stable Hand Name Role Phone Jairo Vasquez MD Primary Care Provider [phone] Kylee Dailey MD Unavailable + Kayode Ivey MD Unavailable +[phone] Nicolasa Perez APRN SUPERVISOR CAPACITOR PROCESSING Unavaila ble Loyda Dickey RN Unavailable +[phone] Srinivas Stern PA-C Unavailable +[phone] Srinivas Stern PA-C Unavailable +[phone] Violet Ta [facility] Unavailable +[phone] Sue Mckeon [facility] Unavailable [phone] Karen Trinh MD Unavailable +[phone] Violet Ta [facility] Unavailable +[phone] Violet Ta [facility] Unavailable +[phone] Srinivas Stern PA-C Unavailable +[phone] Bandar Casas [facility] Unavailable +[phone] Bandar Casas [facility] Unavailable Ayana Zhang PA-C Unavailable [phone] Srinivas Stern PA-C Unavailable Encounter Details Date Type Department Care Team (Late st Contact Info) Description 03/02/2016 MyC Medical Advice [facility]ology [facility] [address] [place] [phone] Blanca Menezes, RN Social History Tobacco Use Types Packs/Day Years Used Date Smoking Tobacco: Never Alcohol Use Standard Drinks/Week Comments No 0 (1 standard drink = 0.6 oz pur e alcohol) not currently Sex and Gender Information Value Date Recorded Sex Assigned at Not on file Legal Sex 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 OUTPATIENT PHYSICAL THERAPIST Gender Identity Not on file Sexual Orientation Not on file 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 Plan of Treatment Upcoming Encounters Date Type Department Care Team (Latest Contact Info) Description 02/13/2025 3:20 PM CDT Appointment [facility] Imaging [address] [facility] [address] [place] [phone] Kayode Ivey MD [address] [place] [address] 03/07/2025 3:00 PM CDT Ancillary Procedure [facility] [address] [facility] [address] [place] [address] Srinivas Stern PA-C [address] [place] [address] [phone] 04/24/2025 2:40 PM CDT Virtual Visit [facility]ology Clinic [address] [address] Alexis Torres MD 420 [place], [place] [phone] Srinivas Stern PA-C [address] [place] [address] [phone] 06/05/2025 3:30 PM CDT Virtual Visit [facility] [address] [facility] [address] 2nd [place] [address] Kayode Ivey MD 516 [place], [place] 300325 Bandar Casas, [facility] 420 [facility] 812 [place], [place] [phone] documented as of this encounter Visit Diagnoses Not on filedocumented in this encounter Additional Health Concerns Infection Onset Date Last Indicated Resolved Time MRSA-Contact Isolation Comment: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, chest, and elbow 02/17/2016 02/17/2016 Rule Out C-difficile 10/04/2023 10/05/2023 024 7:28 PM OUTPATIENT PHYSICAL THERAPIST C-difficile 10/05/2023 10/05/2023 11/04/2023 11:3 9 PM OUTPATIENT PHYSICAL THERAPIST Rule Out C-difficile 09/03/2024 09/04/2024 025 12:45 PM OUTPATIENT PHYSICAL THERAPIST Assessment Noted Time PHQ-9 Depression Total Score: 9 03/02/20 16 7:16 AM CDT documented as of this encounter Care Teams Stable Hand Relationship Specialty Start Date End Date Jairo Vasquez MD PCP - General Family Medicine - Sports Medicine 12/29/15 Kylee Dailey MD [address] [place], [place] [address] 2A [place], [place] [address] Internal Medicine 04/01/17 Kayode Ivey MD [address] [place] [address]22 Gastroenterology 04/01/17 Nicolasa Perez, HEALTH DATA ANALYST SUPERVISOR CAPACITOR PROCESSING [address] [place] [address] [id number] [place] [address] Nurse Practitioner Nurse Practitioner 04/28/17 Loyda Dickey, RN Nurse Coordinator Neurology 05/26/17 02/26/19 Srinivas Stern PA-C [address] [place] [address]11 Physician Revenue Cycle Consultant Physician Revenue Cycle Consultant 10/02/18 Srinivas Stern PA-C [address] [place] [address] 24395 Assigned Heart and Vascular Provider 11/19/20 06/27/21 [facility] [address] [place] [address] 38801 Pharmacist Pharmacist 12/29/20 02/08/21 Sue Mckeon [facility] [address] [place] [address] 46034 Pharmacist Pharmacist Claims Counsel 02/09/21 06/29/22 Karen Trinh MD [address] [place] [address] 23906 Assigned Infectious Disease Provider 02/08/21 07/30/22 Violet Ta, [facility] [address] [place] [address] Assigned MTM Pharmacist 02/27/22 05/21/22 Violet Ta [facility] [address] [place] [address] Assigned MTM Pharmacist 06/02/22 07/09/22 Srinivas Stern PA-C 909 [place] [address] Assigned Gastroenterology Provider 07/17/22 Bandar Casas [facility] [address] [phone] Pharmacist Pharmacist 08/18/23 Bandar Casas [facility] [address] [phone] Assigned MTM Pharmacist 08/27/23 Ayana Zhang PA-C [address] [place] [address] Physician Revenue Cycle Consultant Rheumatology 04/16/24 Srinivas Stern PA-C 909 [place] [address] Home Infusion Following Provider Gastroenterology 07/11/24 10/05/24 documented as of this encounter
--- OUTSIDE RECORDS SUMMARY | 2025-01-15 15:44 | XMS_ITS | Encounter Summary ---
Author Organization [place] Address [address] [place] [address] Care Team Providers Care Customer Service Administrator Name Role Phone Jairo Vasquez MD Primary Care Provider [phone] Kylee Dailey MD Unavailable + Kayode Ivey MD Unavailable +[phone] Nicolasa Perez APRN CELL MAKER Unavaila ble Loyda Dickey RN Unavailable +[phone] Srinivas Stern PA-C Unavailable +[phone] Srinivas Stern PA-C Unavailable +[phone] Violet Ta [facility] Unavailable [phone] Sue Mckeon [facility] Unavailable [phone] Karen Trinh MD Unavailable [phone] Violet Ta [facility] Unavailable [phone] Violet Ta [facility] Unavailable +[phone] Srinivas Stern PA-C Unavailable +[phone] Bandar Casas [facility] Unavailable +[phone] Bandar Casas [facility] Unavailable Ayana Zhang PA-C Unavailable [phone] Srinivas Stern PA-C Unavailable Encounter Details Date Type Department Care Team (Late st Contact Info) Description 01/13/2018 MyC Medical Advice [facility] Gastroenterology and IBD Clinic [address] [place] [phone] Kayode Ivey MD 6 [place] [address] Social History Tobacco Use Types Packs/Day Years Used Date Smoking Tobacco: Never Smokeless Tobacco: Never Alcohol Use Standard Drinks/Week Comments Yes 13 (1 standard drink = 0.6 oz pu re alcohol) MONTHLY Sex and Gender Information Value Date Recorded Sex Assigned at Not on file Legal Sex 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 SOLAR/RENEWABLE ENERGY SALES Gender Identity Not on file Sexual Orientation Not on file 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 Plan of Treatment Upcoming Encounters Date Type Department Care Team (Latest Contact Info) Description 02/13/2025 3:20 PM CDT Appointment [facility] Imaging [address] [facility] [address] [place] [phone] Kayode Ivey MD 6 [place] [address] 03/07/2025 3:00 PM CDT Ancillary Procedure [address] [place] [address] Srinivas Stern PA-C 9 [place], [place] [address]45 04/24/2025 2:40 PM CDT Virtual Visit [facility] Gastroenterology Clinic [address] [address] Alexis Torres MD 420 [place] [address] Srinivas Stern PA-C 909 [place], [place] [phone] 06/05/2025 3:30 PM CDT Virtual Visit [facility] 909 [facility] 2nd [place] [phone] Kayode Ivey MD 516 [place] [address] Bandar Casas, [facility] 420 [facility] 812 [place] [address] documented as of this encounter Visit Diagnoses Not on filedocumented in this encounter Additional Health Concerns Infection Onset Date Last Indicated Resolved Time MRSA-Contact Isolation Comment: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, chest, and elbow 02/17/2016 02/17/2016 Rule Out C-difficile 10/04/2023 10/05/2023 024 7:28 PM SOLAR/RENEWABLE ENERGY SALES C-difficile 10/05/2023 10/05/2023 11/04/2023 11:3 9 PM SOLAR/RENEWABLE ENERGY SALES Rule Out C-difficile 09/03/2024 09/04/2024 025 12:45 PM SOLAR/RENEWABLE ENERGY SALES Assessment Noted Time PHQ-9 Depression Total Score: 9 03/02/20 16 7:16 AM CDT documented as of this encounter Care Teams Customer Service Administrator Relationship Specialty Start Date End Date Jairo Vasquez MD PCP - General Family Medicine - Sports Medicine 12/29/15 Kylee Dailey MD [address] [place] [address] 2A [place], [place] [phone] Internal Medicine 04/01/17 Kayode Ivey MD [address] [place] [address] Gastroenterology 04/01/17 Nicolasa Perez APRN CELL MAKER [address] [place] [address] [id number] [place], [place] 499395 Nurse Practitioner Nurse Practitioner 04/28/17 Loyda Dickey RN Nurse Coordinator Neurology 05/26/17 02/26/19 Srinivas Stern PA-C [address] [place] [place] [address] Physician Furniture Assembler And Installer Physician Furniture Assembler And Installer 10/02/18 Srinivas Stern PA-C [address] [place] [place] [address] Assigned Heart and Vascular Provider 11/19/20 06/27/21 Violet Ta [facility] [address] [place] [place] [address] 44742 Pharmacist Pharmacist 12/29/20 02/08/21 Sue Mckeon [facility] [address] [place] [place] [address] 521975 Pharmacist Pharmacist Recruitment And Outreach Assistant 02/09/21 06/29/22 Karen Trinh MD [address] [place] [place] [address] [phone] Assigned Infectious Disease Provider 02/08/21 07/30/22 Violet Ta [facility] [address] [place] [address] 96 [place], [place] [phone] Assigned MTM Pharmacist 02/27/22 05/21/22 Violet Ta [facility] 480 [facility] [address] [place] [address] Assigned MTM Pharmacist 06/02/22 07/09/22 Srinivas Stern PA-C [address] [place] [address] Assigned Gastroenterology Provider 07/17/22 Bandar Casas RPH 420 [facility] 812 [place] [address] Pharmacist Pharmacist 08/18/23 Bandar Casas RP [address] [address] Assigned MTM Pharmacist 08/27/23 Ayana Zhang PA-C [address] [place] [address] Physician Furniture Assembler And Installer Rheumatology 04/16/24 Srinivas Stern PA-C 909 [place] [address] Home Infusion Following Provider Gastroenterology 07/11/24 10/05/24 documented as of this encounter
--- OUTSIDE RECORDS SUMMARY | 2025-01-15 15:44 | XMS_ITS | Encounter Summary ---
Author Organization [place] Address [address] [place] [address] Care Team Providers Care Hollow Core Door Frame Assembler Name Role Phone Jairo Vasquez MD Primary Care Provider [phone] Kylee Dailey MD Unavailable + Kayode Ivey MD Unavailable [phone] Nicolasa Perze APRN PLATE GAUGER Unavaila ble Loyda Dickey RN Unavailable +[phone] Srinivas Stern PA-C Unavailable +[phone] Srinivas Stern PA-C Unavailable +[phone] Violet Ta [facility] Unavailable +[phone] Sue Mckeon [facility] Unavailable +[phone] Karen Trinh MD Unavailable +[phone] Violet Ta [facility] Unavailable +[phone] Violet Ta [facility] Unavailable +[phone] Srinivas Stern PA-C Unavailable +[phone] Bandar Casas [facility] Unavailable +[phone] Bandar Casas [facility] Unavailable +[phone] Ayana Zhang PA-C Unavailable [phone] Srinivas Stern PA-C Unavailable Encounter Details Date Type Department Care Team (Late st Contact Info) Description 08/29/2017 MyC Medical Advice [facility] Hepatology Clinic [address] [address] Kylee Dailey MD 516 [facility] [address] [place], [place] [phone] Social History Tobacco Use Types Packs/Day Years Used Date Smoking Tobacco: Never Smokeless Tobacco: Never Alcohol Use Standard Drinks/Week Comments Yes 13 (1 standard drink = 0.6 oz pu re alcohol) MONTHLY Sex and Gender Information Value Date Recorded Sex Assigned at Not on file Legal Sex 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 SPANISH SPEAKING BABYSITTER Gender Identity Not on file Sexual Orientation Not on file 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 Plan of Treatment Upcoming Encounters Date Type Department Care Team (Latest Contact Info) Description 02/13/2025 3:20 PM CDT Appointment [facility] Imaging [address] [facility] [address] [place] [address] Kayode Ivey MD 6 [place] [address] 03/07/2025 3:00 PM CDT Ancillary Procedure [address] [place] [address] Srinivas Stern PA-C 9 [place], [place] [address]115 04/24/2025 2:40 PM CDT Virtual Visit [facility] Gastroenterology Clinic [address] 4th [place] [address] Alexis Torres MD 420 [place] [address] Srinivas Stern PA-C 909 [place], [place] [phone] 06/05/2025 3:30 PM CDT Virtual Visit [facility] 909 [facility] 2nd [place] [phone] Kayode Ivey MD 516 [place] [address] Bandar Casas, [facility] 420 [facility] 812 [place] [address] documented as of this encounter Visit Diagnoses Not on filedocumented in this encounter Additional Health Concerns Infection Onset Date Last Indicated Resolved Time MRSA-Contact Isolation Comment: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, chest, and elbow 02/17/2016 02/17/2016 Rule Out C-difficile 10/04/2023 10/05/2023 024 7:28 PM SPANISH SPEAKING BABYSITTER C-difficile 10/05/2023 10/05/2023 11/04/2023 11:3 9 PM SPANISH SPEAKING BABYSITTER Rule Out C-difficile 09/03/2024 09/04/2024 025 12:45 PM SPANISH SPEAKING BABYSITTER Assessment Noted Time PHQ-9 Depression Total Score: 9 03/02/20 16 7:16 AM CDT documented as of this encounter Care Teams Hollow Core Door Frame Assembler Relationship Specialty Start Date End Date Jairo Vasquez MD PCP - General Family Medicine - Sports Medicine 12/29/15 Kylee Dailey MD [address] [place] [address] 2A [place], [place] [phone] Internal Medicine 04/01/17 Kayode Ivey MD [address] [place] [address] Gastroenterology 04/01/17 Nicolasa Perez APRN PLATE GAUGER [address] [place] [address] [id number] [place], [place] 755595 Nurse Practitioner Nurse Practitioner 04/28/17 Loyda Dickey RN Nurse Coordinator Neurology 05/26/17 02/26/19 Srinivas Stern PA-C [address] [place] [address] Physician Contracting Analyst Physician Contracting Analyst 10/02/18 Srinivas Stern PA-C [address] [place] [address] Assigned Heart and Vascular Provider 11/19/20 06/27/21 Violet Ta [facility] [address] [place] [address] Pharmacist Pharmacist 12/29/20 02/08/21 Sue Mckeon [facility] [address] [place] [address] [phone] Pharmacist Pharmacist Deck Mate 02/09/21 06/29/22 Karen Trinh MD [address] [place] [address] [phone] Assigned Infectious Disease Provider 02/08/21 07/30/22 Violet Ta [facility] [address] [place] [address] 96 [place], [place] [phone] Assigned MTM Pharmacist 02/27/22 05/21/22 Violet Ta [facility] 480 [facility] [address] [place] [address] Assigned MTM Pharmacist 06/02/22 07/09/22 Srinivas Stern PA-C [address] [place] [address] Assigned Gastroenterology Provider 07/17/22 Bandar Casas RPH 420 [facility] 812 [place] [address] Pharmacist Pharmacist 08/18/23 Bandar Casas RP [address] [address] Assigned MTM Pharmacist 08/27/23 Ayana Zhang PA-C [address] [place] [address] Physician Contracting Analyst Rheumatology 04/16/24 Srinivas Stern PA-C 909 [place] [address] Home Infusion Following Provider Gastroenterology 07/11/24 10/05/24 documented as of this encounter
--- OUTSIDE RECORDS SUMMARY | 2025-01-15 15:45 | XMS_ITS | Encounter Summary ---
Author Organization [place] Address [address] [place] [address] Care Team Providers Care Compressor Station Operator Name Role Phone Jairo Vasquez MD Primary Care Provider [phone] Kylee Dailey MD Unavailable + Kayode Ivey MD Unavailable +[phone] Nicolasa Perez APRN BLOCK MACHINE OPERATOR Unavaila ble Srinivas Stern PA-C Unavailable +[phone] Srinivas Stern PA-C Unavailable +[phone] Violet Ta [facility] Unavailable +[phone] Sue Mckeon [facility] Unavailable [phone] Karen Trinh MD Unavailable [phone] Violet Ta [facility] Unavailable [phone] Violet Ta [facility] Unavailable +[phone] Srinivas Stern PA-C Unavailable +[phone] Bandar Casas [facility] Unavailable [phone] Bandar Casas [facility] Unavailable [phone] Ayana Zhang PA-C Unavailable [phone] Srinivas Stern PA-C Unavailable [phone] Encounter Details Date Type Department Care Team (Late st Contact Info) Description 01/19/2021 MyC Medical Advice [facility] Gastroenterology Clinic [address] [phone] Kayode Ivey MD [address] [place] [address] [phone] Social History Tobacco Use Types Packs/Day Years Used Date Smoking Tobacco: Never Smokeless Tobacco: Never Alcohol Use Standard Drinks/Week Comments Yes 13 (1 standard drink = 0.6 oz pu re alcohol) MONTHLY PHQ-2 Answer Date Recorded PHQ-2 Score 2 08/20/2019 Sex and Gender Information Value Date Recorded Sex Assigned at Not on file Legal Sex 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 HARVEST CONTRACTOR Gender Identity Not on file Sexual Orientation Not on file 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 No / Unsure 01/16/2021 1:23 PM CDT documented as of this encounter Plan of Treatment Upcoming Encounters Date Type Department Care Team (Latest Contact Info) Description 02/13/2025 3:[address] [facility] Imaging [address] [facility] [address] [place] [phone] Kayode Ivey MD [address] [place] [address] [phone] 03/07/2025 3:00 PM CDT Ancillary Procedure [address] [place] [address] Srinivas Stern PA-C [address] [place] [address] [phone] 04/24/2025 2:40 PM CDT Virtual Visit [facility] Gastroenterology Clinic [address] [phone] Alexis Torres MD 420 [place], [place] 6[address]15 Srinivas Stern PA-C 909 [place], [place] [phone] 06/05/2025 3:30 PM CDT Virtual Visit [facility] 909 [facility] 2nd [place] [phone] Kayode Ivey MD 516 [place] [address] Bandar Casas [facility] 420 [facility] 812 [place], [place] 407225 documented as of this encounter Visit Diagnoses Not on filedocumented in this encounter Additional Health Concerns Infection Onset Date Last Indicated Resolved Time MRSA-Contact Isolation Comment: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, chest, and elbow 02/17/2016 02/17/2016 Rule Out C-difficile 10/04/2023 10/05/2023 024 7:28 PM HARVEST CONTRACTOR C-difficile 10/05/2023 10/05/2023 11/04/2023 11:3 9 PM HARVEST CONTRACTOR Rule Out C-difficile 09/03/2024 09/04/2024 025 12:45 PM HARVEST CONTRACTOR Assessment Noted Time PHQ-9 Depression Total Score: 9 03/02/20 16 7:16 AM CDT documented as of this encounter Care Teams Compressor Station Operator Relationship Specialty Start Date End Date Jairo Vasquez MD PCP - General Family Medicine - Sports Medicine 12/29/15 Kylee Dailey MD 6 [facility] [address] [place], [place] [phone] Internal Medicine 04/01/17 Kayode Ivey MD [address] [place] [address] 882255 Gastroenterology 04/01/17 Nicolasa Perez APRN BLOCK MACHINE OPERATOR [address] [place] [address] [id number] [place], [place] [phone] Nurse Practitioner Nurse Practitioner 04/28/17 Srinivas Stern PA-C [address] [place] [address] [phone] Physician Occupational Therapy Program Director Physician Occupational Therapy Program Director 10/02/18 Srinivas Stern PA-C [address] [place] [address] [phone] Assigned Heart and Vascular Provider 11/19/20 06/27/21 Violet Ta [facility] [address] [place] [address] Pharmacist Pharmacist 12/29/20 02/08/21 Sue Mckeon [facility] [address] [place] [address] [phone] Pharmacist Pharmacist Failure Analysis Technician 02/09/21 06/29/22 Karen Trinh MD [address] [place] [address] 233375 Assigned Infectious Disease Provider 02/08/21 07/30/22 Violet Ta [facility] [address] [place] [address] Assigned MTM Pharmacist 02/27/22 05/21/22 Violet Ta [facility] [address] [place] [address] Assigned MTM Pharmacist 06/02/22 07/09/22 Srinivas Stern PA-C 909 [place] [address] Assigned Gastroenterology Provider 07/17/22 Bandar Casas RPH [address] [address] Pharmacist Pharmacist 08/18/23 Bandar Casas RPH [address] [address] Assigned MTM Pharmacist 08/27/23 Ayana Zhang PA-C 5200 [place] [address] Physician Occupational Therapy Program Director Rheumatology 04/16/24 Srinivas Stern PA-C 909 [place], [place] 015655 Home Infusion Following Provider Gastroenterology 07/11/24 10/05/24 documented as of this encounter
--- OUTSIDE RECORDS SUMMARY | 2025-01-15 15:45 | XMS_ITS | Encounter Summary ---
Author Organization [place] Address [address] [place] [address] 11259 Care Team Providers Care Prototype Special Build Name Role Phone Jairo Vasquez MD Primary Care Provider [phone] Kylee Dailey MD Unavailable + Kayode Ivey MD Unavailable +[phone] Nicolasa Perez APRN COSMETIC DENTIST Unavaila ble Loyda Dickey RN Unavailable +[phone] Srinivas Stern PA-C Unavailable +[phone] Srinivas Stern PA-C Unavailable +[phone] Violet Ta [facility] Unavailable +[phone] Sue Mckeon [facility] Unavailable [phone] Karen Trinh MD Unavailable +[phone] Violet Ta [facility] Unavailable +[phone] Violet Ta [facility] Unavailable +[phone] Srinivas Stern PA-C Unavailable +[phone] Bandar Casas [facility] Unavailable +[phone] Bandar Casas [facility] Unavailable Ayana Zhang PA-C Unavailable [phone] Srinivas Stern PA-C Unavailable [phone] Encounter Details Date Type Department Care Team (Late st Contact Info) Description 04/22/2017 MyC Medical Advice [facility] Clinic [address] [place] [address] [phone] Blanca Menezes, RN Social History Tobacco Use Types Packs/Day Years Used Date Smoking Tobacco: Never Alcohol Use Standard Drinks/Week Comments No 0 (1 standard drink = 0.6 oz pur e alcohol) not currently Sex and Gender Information Value Date Recorded Sex Assigned at Not on file Legal Sex 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 TICKET DISPATCHER Gender Identity Not on file Sexual Orientation Not on file 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 Plan of Treatment Upcoming Encounters Date Type Department Care Team (Latest Contact Info) Description 02/13/2025 3:20 PM CDT Appointment [facility] [address] [facility] [address] [place] [phone] Kayode Ivey MD 516 [place] [address] 03/07/2025 3:00 PM CDT Ancillary Procedure [facility] [address] [facility] [address] [place] [address] Srinivas Stern PA-C [address] [place] [address] [id number] 04/24/2025 2:40 PM CDT Virtual Visit [facility] Gastroenterology Clinic [address] [address] Alexis Torres MD 420 [place], [place] [phone] Srinivas Stern PA-C [address] [place] [address] [phone] 06/05/2025 3:30 PM CDT [facility] MTM 9[address] [facility] [address] 2nd [place] [address] Kayode Ivey MD 516 [place], [place] 679545 Bandar Casas, [facility] 420 [facility] 812 [place], [place] [phone] documented as of this encounter Visit Diagnoses Not on filedocumented in this encounter Additional Health Concerns Infection Onset Date Last Indicated Resolved Time MRSA-Contact Isolation Comment: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, chest, and elbow 02/17/2016 02/17/2016 Rule Out C-difficile 10/04/2023 10/05/2023 024 7:28 PM TICKET DISPATCHER C-difficile 10/05/2023 10/05/2023 11/04/2023 11:3 9 PM TICKET DISPATCHER Rule Out C-difficile 09/03/2024 09/04/2024 025 12:45 PM TICKET DISPATCHER Assessment Noted Time PHQ-9 Depression Total Score: 9 03/02/20 16 7:16 AM CDT documented as of this encounter Care Teams Prototype Special Build Relationship Specialty Start Date End Date Jairo Vasquez MD PCP - General Family Medicine - Sports Medicine 12/29/15 Kylee Dailey MD [address] [place], [place] [address]B 2A [place], [place] 3397[address] Internal Medicine 04/01/17 Kayode Ivey MD [address] [place] [address]70 Gastroenterology 04/01/17 Nicolasa Perez, CHIEF HUMAN RESOURCES OFFICER COSMETIC DENTIST [address] [place] [address] [id number] [place] [address] Nurse Practitioner Nurse Practitioner 04/28/17 Loyda Dickey, RN Nurse Coordinator Neurology 05/26/17 02/26/19 Srinivas Stern PA-C [address] [place] [address] 99776 Physician Card Writer Hand Physician Card Writer Hand 10/02/18 Srinivas Stern PA-C [address] [place] [address] 85179 Assigned Heart and Vascular Provider 11/19/20 06/27/21 [facility] [address] [place] [address] 30718 Pharmacist Pharmacist 12/29/20 02/08/21 Sue Mckeon [facility] [address] [place] [address] 10958 Pharmacist Pharmacist Facility Technician 02/09/21 06/29/22 Karen Trinh MD [address] [place] [address] 00638 Assigned Infectious Disease Provider 02/08/21 07/30/22 Violet Ta, [facility] [address] [place] [address] Assigned MTM Pharmacist 02/27/22 05/21/22 Violet Ta [facility] [address] [place] [address] Assigned MTM Pharmacist 06/02/22 07/09/22 Srinivas Stern PA-C 909 [place] [address] Assigned Gastroenterology Provider 07/17/22 Bandar Casas [facility] [address] [phone] Pharmacist Pharmacist 08/18/23 Bandar Casas [facility] [address] [phone] Assigned MTM Pharmacist 08/27/23 Ayana Zhang PA-C 5200 [place] [address] Physician Card Writer Hand Rheumatology 04/16/24 Srinivas Stern PA-C 909 [place] [address] Home Infusion Following Provider Gastroenterology 07/11/24 10/05/24 documented as of this encounter
--- OUTSIDE RECORDS SUMMARY | 2025-01-15 15:45 | XMS_ITS | Encounter Summary ---
Author Organization [place] Address [address] [place] [address] 43870 Care Team Providers Care Shingle Cutter Name Role Phone Jairo Vasquez MD Primary Care Provider [phone] Kylee Dailey MD Unavailable + Kayode Ivey MD Unavailable [phone] Nicolasa Perez APRN EQUIPMENT OR MACHINERY CLEANER Unavaila ble Loyda Dickey RN Unavailable +[phone] Srinivas Stern PA-C Unavailable +[phone] Srinivas Stern PA-C Unavailable +[phone] Violet Ta [facility] Unavailable +[phone] Sue Mckeon [facility] Unavailable [phone] Karen Trinh MD Unavailable +[phone] Violet Ta [facility] Unavailable [phone] Violet Ta [facility] Unavailable +[phone] Srinivas Stern PA-C Unavailable +[phone] Bandar Casas [facility] Unavailable +[phone] Bandar Casas [facility] Unavailable Ayana Zhang PA-C Unavailable [phone] Srinivas Stern PA-C Unavailable Encounter Details Date Type Department Care Team (Late st Contact Info) Description 09/22/2017 MyC Medical Advice [facility]ology [facility] IBD [facility] [address] [place] [address] Blanca Menezes, RN Social History Tobacco Use Types Packs/Day Years Used Date Smoking Tobacco: Never Smokeless Tobacco: Never Alcohol Use Standard Drinks/Week Comments Yes 13 (1 standard drink = 0.6 oz pu re alcohol) MONTHLY Sex and Gender Information Value Date Recorded Sex Assigned at Not on file Legal Sex 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 SUPERVISOR STAGE CARPENTRY Gender Identity Not on file Sexual Orientation Not on file 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 Plan of Treatment Upcoming Encounters Date Type Department Care Team (Latest Contact Info) Description 02/13/2025 3:20 PM CDT Appointment [facility] Imaging [address] [facility] [address] [place] [phone] Kayode Ivey MD 516 [place] [address] 03/07/2025 3:00 PM CDT Ancillary Procedure [address] [place] [address] Srinivas Stern PA-C [address] [place] [address] 04/24/2025 2:40 PM CDT Virtual Visit [facility] Gastroenterology Clinic [address] [address] Alexis Torres MD 420 [place], [place] [phone] Srinivas Stern PA-C [address] [place] [address] 06/05/2025 3:30 PM CDT Virtual Visit [facility] MTM [address] [facility] [address] 2nd [place] [address] Kayode Ivey MD 516 [place], [place] [phone] Bandar Casas, [facility] 420 [facility] 812 [place], [place] 529405 documented as of this encounter Visit Diagnoses Not on filedocumented in this encounter Additional Health Concerns Infection Onset Date Last Indicated Resolved Time MRSA-Contact Isolation Comment: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, chest, and elbow 02/17/2016 02/17/2016 Rule Out C-difficile 10/04/2023 10/05/2023 024 7:28 PM SUPERVISOR STAGE CARPENTRY C-difficile 10/05/2023 10/05/2023 11/04/2023 11:3 9 PM SUPERVISOR STAGE CARPENTRY Rule Out C-difficile 09/03/2024 09/04/2024 025 12:45 PM SUPERVISOR STAGE CARPENTRY Assessment Noted Time PHQ-9 Depression Total Score: 9 03/02/20 16 7:16 AM CDT documented as of this encounter Care Teams Shingle Cutter Relationship Specialty Start Date End Date Jairo Vasquez MD PCP - General Family Medicine - Sports Medicine 12/29/15 Kylee Dailey MD [address] [place] [address] [address] [place], [place] 0[address]95 Internal Medicine 04/01/17 Kayode Ivey MD [address] [place] [address] [id number] Gastroenterology 04/01/17 Nicolasa Perez APRN EQUIPMENT OR MACHINERY CLEANER [address] [place] [address] [id number] [place] [address] Nurse Practitioner Nurse Practitioner 04/28/17 Loyda Dickey, RN Nurse Coordinator Neurology 05/26/17 02/26/19 Srinivas Stern PA-C [address] [place] [address] Physician Barrel Ribs Solderer Physician Barrel Ribs Solderer 10/02/18 Srinivas Stern PA-C [address] [place] [address] Assigned Heart and Vascular Provider 11/19/20 06/27/21 [facility] [address] [place] [address] Pharmacist Pharmacist 12/29/20 02/08/21 Sue Mckeon [facility] [address] [place] [address] 23587 Pharmacist Pharmacist Premix Concrete Batcher 02/09/21 06/29/22 Karen Trinh MD [address] [place] [address] 35394 Assigned Infectious Disease Provider 02/08/21 07/30/22 Violet Ta, [facility] [address] [place] [address] [address] [place] [address] Assigned MTM Pharmacist 02/27/22 05/21/22 Violet Ta [facility] 480 [facility] [address] [place] [address] Assigned MTM Pharmacist 06/02/22 07/09/22 Srinivas Stern PA-C 909 [place] [address] Assigned Gastroenterology Provider 07/17/22 Bandar Casas [facility] [address] [phone] Pharmacist Pharmacist 08/18/23 Bandar Casas [facility] [address] [place] [address] Assigned MTM Pharmacist 08/27/23 Ayana Zhang PA-C 5200 [place] [address] Physician Barrel Ribs Solderer Rheumatology 04/16/24 Srinivas Stern PA-C 909 [place] [address] Home Infusion Following Provider Gastroenterology 07/11/24 10/05/24 documented as of this encounter
--- OUTSIDE RECORDS SUMMARY | 2025-01-15 15:45 | XMS_ITS | Encounter Summary ---
Author Organization [place] Address [address] [place] [address]38 Care Team Providers Care Securities Lending Trader Name Role Phone Jairo Vasquez MD Primary Care Provider [phone] Kylee Dailey MD Unavailable + Kayode Ivey MD Unavailable [phone] Nicolasa Perez APRN VENDING MACHINE ATTENDANT Unavaila ble Srinivas Stern PA-C Unavailable +[phone] Srinivas Stern PA-C Unavailable +[phone] Violet Ta [facility] Unavailable +[phone] Sue Mckeon [facility] Unavailable [phone] Karen Trinh MD Unavailable [phone] Violet Ta [facility] Unavailable +[phone] Violet Ta [facility] Unavailable +[phone] Srinivas Stern PA-C Unavailable +[phone] Bandar Casas [facility] Unavailable [phone] Bandar Casas [facility] Unavailable [phone] Ayana Zhang PA-C Unavailable [phone] Srinivas Stern PA-C Unavailable [phone] Encounter Details Date Type Department Care Team (Late st Contact Info) Description 01/21/2021 MyC Medical Advice [facility] Specialty [facility] [place] [address] Violet Ta M, [facility] [address] [place] [address] Social History Tobacco Use Types Packs/Day Years Used Date Smoking Tobacco: Never Smokeless Tobacco: Never Alcohol Use Standard Drinks/Week Comments Yes 13 (1 standard drink = 0.6 oz pu re alcohol) MONTHLY PHQ-2 Answer Date Recorded PHQ-2 Score 2 08/20/2019 Sex and Gender Information Value Date Recorded Sex Assigned at Not on file Legal Sex 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 BIZTALK DEVELOPER Gender Identity Not on file Sexual Orientation [...] Info) Description 02/13/2025 3:20 PM CDT Appointment [facility] Imaging [address] [facility] [address] [place] [phone] Kayode Ivey MD [address] [place] [address] [phone] 03/07/2025 3:00 PM CDT Ancillary Procedure [address] [place] [address] Srinivas Stern PA-C [address] [place] [address] 084355 04/24/2025 2:40 PM CDT Virtual Visit [facility] Gastroenterology Clinic [address] 4th [place] [address] Alexis Torres MD 420 [place], [place] 880925 Srinivas Stern PA-C 909 [place], [place] 712065 06/05/2025 3:30 PM CDT Virtual [facility] 909 [facility] 2nd [place] [address] Kayode Ivey MD 516 [place] [address] Banadr Casas [facility] 420 [facility] 812 [place], [place] 142645 documented as of this encounter Visit Diagnoses Not on filedocumented in this encounter Additional Health Concerns Infection Onset Date Last Indicated Resolved Time MRSA-Contact Isolation Comment: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, chest, and elbow 02/17/2016 02/17/2016 Rule Out C-difficile 10/04/2023 10/05/2023 024 7:28 PM BIZTALK DEVELOPER C-difficile 10/05/2023 10/05/2023 11/04/2023 11:3 9 PM BIZTALK DEVELOPER Rule Out C-difficile 09/03/2024 09/04/2024 025 12:45 PM BIZTALK DEVELOPER Assessment Noted Time PHQ-9 Depression Total Score: 9 03/02/20 16 7:16 AM CDT documented as of this encounter Care Teams Securities Lending Trader Relationship Specialty Start Date End Date Jairo Vasquez MD PCP - General Family Medicine - Sports Medicine 12/29/15 Kylee Dailey MD 6 [facility] [address] [place], [place] 9004[address] Internal Medicine 04/01/17 Kayode Ivey MD [address] [place] [address] 635795 Gastroenterology 04/01/17 Nicolasa Perez APRN VENDING MACHINE ATTENDANT [address] [place] [address] [id number] [place], [place] [phone] Nurse Practitioner Nurse Practitioner 04/28/17 Srinivas Stern PA-C [address] [place] [address] [phone] Physician Yarn Man Physician Yarn Man 10/02/18 Srinivas Stern PA-C [address] [place] [address] [phone] Assigned Heart and Vascular Provider 11/19/20 06/27/21 Violet Ta [facility] [address] [place] [address] 31697 Pharmacist Pharmacist 12/29/20 02/08/21 Sue Mckeon [facility] [address] [place] [address] 12239 Pharmacist Pharmacist Data Security Analyst 02/09/21 06/29/22 Karen Trinh MD [address] [place] [address] 603815 Assigned Infectious Disease Provider 02/08/21 07/30/22 Violet Ta [facility] [address] [place] [address] 925[address] Assigned MTM Pharmacist 02/27/22 05/21/22 Violet Ta [facility] [address] [place] [address] Assigned MTM Pharmacist 06/02/22 07/09/22 Srinivas Stern PA-C 909 [place] [address] Assigned Gastroenterology Provider 07/17/22 Bandar Casas [facility] [address] [address] Pharmacist Pharmacist 08/18/23 Bandar Casas [facility] [address] [address] Assigned MTM Pharmacist 08/27/23 Ayana Zhang PA-C 5200 [place] [address] Physician Yarn Man Rheumatology 04/16/24 Srinivas Stern PA-C 909 [place] [address] Home Infusion Following Provider Gastroenterology 07/11/24 10/05/24 documented as of this encounter
--- OUTSIDE RECORDS SUMMARY | 2025-01-15 15:45 | XMS_ITS | Encounter Summary ---
Author Organization [facility] Address [address] [place] [address]. [place] [address] Care Team Providers Care Product Safety Manager Name Role Phone Jairo Vasquez MD Primary Care Provider Kylee Dailey MD Unavailable + Kayode Ivey MD Unavailable [phone] Nicolasa Perez APRN PROVIDER RELATIONS COORDINATOR Unavaila ble Srinivas Stern-C Unavailable Srinivas Stern-C Unavailable [phone] Bandar Casas [facility] Unavailable [phone] Bandar Casas [facility] Unavailable [phone] Ayana Zhang-C Unavailable PitSrinivas mcintosh-C Unavailable [phone] Encounter Details Date Type Department Care Team (Late st Contact Info) Description 07/11/2023 [facility] [address] 4th [place] [address] Silvana Rodríguez Social History Tobacco Use Types Packs/Day Years Used Date Smoking Tobacco: Never Smokeless Tobacco: Never Alcohol Use Standard Drinks/Week Comments Yes 13 (1 standard drink = 0.6 oz pu re alcohol) MONTHLY PHQ-2 Answer Date Recorded PHQ-2 Score 0 01/18/2023 Adolescent Education Answer Date Record ed Getting School Help Needed Not on file 05/28 Sex and Gender Information Value Date Recorded Sex Assigned at Not on file 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 Gender Identity Not on file Sexual Orientation Not on file 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 Plan of Treatment Upcoming Encounters Date Type Department Care Team (Latest Contact Info) Description 02/13/2025 3:20 PM CDT Appointment [facility] Imaging [address] [facility] [address] [place] [address] Kayode Ivey MD [address] [place] [address] 03/07/2025 3:00 PM CDT Ancillary Procedure [address] [place] [address] Srinivas Stern PA-C [address] [place] [address] [phone] 04/24/2025 2:40 PM CDT Virtual Visit [facility] [address] [place] [address] Alexis Torres MD 420 [place], [place] 231425 Srinivas Stern PA-C [address] [place] [address] [phone] 06/05/2025 3:30 PM CDT Virtual Visit [facility] GI [address] [place] [address] Kayode Ivey MD [address] [place] [address] 859215 Bandar Cassa [facility] 420 [facility] 812 [place] [address] documented as of this encounter Visit Diagnoses Not on filedocumented in this encounter Additional Health Concerns Infection Onset Date Last Indicated Resolved Time MRSA-Contact Isolation Comment: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, chest, and elbow 02/17/2016 02/17/2016 Rule Out C-difficile 10/04/2023 10/05/2023 024 7:28 PM PAYROLL SERVICES ANALYST C-difficile 10/05/2023 10/05/2023 11/04/2023 11:3 9 PM PAYROLL SERVICES ANALYST Rule Out C-difficile 09/03/2024 09/04/2024 025 12:45 PM PAYROLL SERVICES ANALYST Assessment Noted Time PHQ-9 Depression Total Score: 9 03/02/20 16 7:16 AM CDT documented as of this encounter Care Teams Product Safety Manager Relationship Specialty Start Date End Date Jairo Vasquez MD PCP - General Family Medicine - Sports Medicine 12/29/15 Kylee Dailey MD 6 [facility] [place], [place] [address] Internal Medicine 04/01/17 Kayode Ivey MD 6 [place] [address] Gastroenterology 04/01/17 Nicolasa Perez APRN PROVIDER RELATIONS COORDINATOR 909 [facility] [id number] [place], [place] 426[address] Nurse Practitioner Nurse Practitioner 04/28/17 Srinivas Stern PA-C 9 [place], [place] 457615 Physician Stock Holder Physician Stock Holder 10/02/18 Srinivas Stern PA-C 909 [place], [place] 390165 Assigned Gastroenterology Provider 07/17/22 Bandar Casas [facility] [address] [place] [address] [phone] Pharmacist Pharmacist 08/18/23 Bandar Casas [facility] [address] [phone] Assigned MTM Pharmacist 08/27/23 Ayana Zhang PA-C 5200 [place] [address] Physician Stock Holder Rheumatology 04/16/24 Srinivas Stern PA-C 909 [place], [place] 716775 Home Infusion Following Provider Gastroenterology 07/11/24 10/05/24 documented as of this encounter
--- OUTSIDE RECORDS SUMMARY | 2025-01-15 15:45 | XMS_ITS | Encounter Summary ---
Author Organization [facility] Address [address] [place] [address]. [place] [address] Care Team Providers Care Cargo Services Coordinator Name Role Phone Jairo Vasquez MD Primary Care Provider Kylee Dailey MD Unavailable + Kayode Ivey MD Unavailable [phone] Nicolasa Perez APRN EDUCATION SITE MANAGER Unavaila ble Srinivas Stern-C Unavailable Srinivas Stern-C Unavailable [phone] Bandar Casas [facility] Unavailable Bandar Casas [facility] Unavailable [phone] Ayana Zhang-C Unavailable Srinivas Stern-C Unavailable [phone] Encounter Details Date Type Department Care Team (Late st Contact Info) Description 03/04/2024 [facility] 909 [place] [address] Bandar Casas [facility] [address] [facility] 812 [place] [address] Social History Tobacco Use Types [...] on file 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 Gender Identity Not on file Sexual Orientation Not on file 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 Plan of Treatment Upcoming Encounters Date Type Department Care Team (Latest Contact Info) Description 02/13/2025 3:20 PM CDT Appointment [facility] Imaging [address] [facility] [address] [place] [address] Kayode Ivey MD [address] [place] [address] 03/07/2025 3:00 PM CDT Ancillary Procedure [facility] [address] [facility] [address] [place] [address] Srinivas Stern PA-C [address] [place] [address] 04/24/2025 2:40 PM CDT Virtual Visit [facility] Gastroenterology Clinic [address] [place] [address] Alexis Torres MD 420 [place], [place] [phone] Srinivas Stern PA-C [address] [place] [address] 06/05/2025 3:30 PM CDT Virtual Visit 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 Assessment Noted Time PHQ-9 Depression Total Score: 9 03/02/20 16 7:16 AM CDT documented as of this encounter Care Teams Cargo Services Coordinator Relationship Specialty Start Date End Date Jairo Vasquez MD PCP - General Family Medicine - Sports Medicine 12/29/15 Kylee Dailey MD [address] [place], [place] [address]B 2A [place] [address] Internal Medicine 04/01/17 Kayode Ivey MD [address] [place] [address] Gastroenterology 04/01/17 Nicolasa Perez APRN EDUCATION SITE MANAGER [address] [place] [address] [id number] [place] [address] Nurse Practitioner Nurse Practitioner 04/28/17 Srinivas Stern PA-C [address] [place] [address] Physician Broadcast Maintenance Engineer Physician Broadcast Maintenance Engineer 10/02/18 Srinivas Stern PA-C 909 [place] [address] Assigned Gastroenterology Provider 07/17/22 Bandar Casas [facility] [address] 206115 Pharmacist Pharmacist 08/18/23 Bandar Casas [facility] [address] [phone] Assigned MTM Pharmacist 08/27/23 Ayana Zhang PA-C 5200 [place] [address] Physician Broadcast Maintenance Engineer Rheumatology 04/16/24 Srinivas Stern PA-C 909 [place] [address] Home Infusion Following Provider Gastroenterology 07/11/24 10/05/24 documented as of this encounter
--- OUTSIDE RECORDS SUMMARY | 2025-01-15 15:45 | XMS_ITS | Clinical Summary ---
Author Organization [facility] Address [address] [place] [id number] Care Team Providers Care Retail Operations Manager Name Role Phone Kayode Ivey MD Unavailable Jairo Vasquez MD Primary Care Provider [phone] Allergies Active Allergy Reactions Criticality Noted Date Comments Sulfamethoxazole-Trimethoprim Rash Low 2013 Sulfa (Sulfonamide Antibiotics) Rash High 09/05 Sulfacetamide Sodium Rash Unknown 12/29/2015 Trimethoprim Rash High 09/17/2024 Medications acetaminophen (TYLENOL) 325 mg tablet Take by mouth every 4 hours if needed. Max acetaminophen dose: 4000mg in 24 hrs. 0 016 Active sodium chloride 0.9 % (NORMAL SALINE FLUSH) syrg 0 018 Active EPINEPHrine (EPIPEN) 0.3 mg/0.3 mL injection 020 Active vedolizumab (ENTYVIO) 300 mg solr injectionIndicati ons:Ulcerative colitis with other complication, unspecified location (HC) Inject 300 mg intravenous every 8 weeks. 0 021 Active cyclobenzaprine (FLEXERIL) 10 mg tabletIndications :Neck pain on left side,Left-sided chest pain Take 1 Tablet (10 mg) by mouth three times daily. Use mostly at night 90 Tablet 1 024 Active Additional Information Patient taking differently:10 mg Oral TID,PRN, Reported on 12/31/2024 Mireya Pen Needle 32 gauge x Indications: Type 2 diabetes mellitus without complication, with long-term current use of insulin (HC) Remove the 2 covers on the insulin pen needle before administering insulin dose. USe to inject insulin as directed daily. 100 Each 3 024 Active atorvastatin (LIPITOR) 10 mg tabletIndications :Candidate for statin therapy due to risk of future cardiovascular event Take 1 Tablet (10 mg) by mouth once daily. 90 Tablet 3 024 Active metFORMIN (GLUCOPHAGE XR) 500 mg Extended-Release tabletIndications :Type 2 diabetes mellitus without complication, without long-term current use of insulin (HC) Take 3 Tablets (1,500 mg) by mouth once daily with a meal. For Diabetes. 270 Tablet 3 024 Active miscellaneous medical supply (Blood Pressure Cuff) miscIndications:P rimary hypertension As directed. Home blood pressure monitoring for Essential hypertension Diagnosis. Upper arm automatic Cuff. 1 Each 024 Active albuterol HFA (PRO-AIR; VENTOLIN; PROVENTIL) 90 mcg/actuation inhalerIndication s:Bronchitis Inhale 2 Puffs by mouth every 4 hours if needed (cough or wheezing). 18 g 025 Active blood-glucose meterIndications: Type 2 diabetes mellitus without complication, with long-term current use of insulin (HC) Dispense glucose meter covered by the patient insurance. Test 2 times per day. Diagnosis Diabetes Type 2. 1 Kit 2 025 Active blood sugar diagnostic (Blood Glucose Test) stripIndications: Type 2 diabetes mellitus without complication, with long-term current use of insulin (HC) Dispense test strips covered by the patient insurance. Test 2 times per day. Diagnosis Diabetes Type 2. 200 Each 3 025 Active omeprazole 20 mg tabletIndications :Chronic GERD Take 1 Tablet (20 mg) by mouth once daily before a meal. For stomach acid symptoms. 90 Tablet 3 025 Active omeprazole (PRILOSEC) 20 mg Delayed-Release capsuleIndication s:Chronic GERD Take 1 Capsule (20 mg) by mouth once daily before a meal. 90 Capsule 3 025 Active fluticasone (50 mcg per actuation) nasal solution (FLONASE)Indicati ons:Nasal congestion Inhale 1 [place] in both nostrils once daily. 16 g 025 Active predniSONE (DELTASONE) 5 mg tabletIndications :Polyarthralgia,L ateral epicondylitis of right elbow,Ulcerative pancolitis without complication (HC) Take 4 tablets daily for 3 days and then 3 tablets daily for 3 days and then 2 tablets daily for 3 days and then 1 tablet daily for 3 days. 30 Tablet 025 Active insulin glargine, U-100, (Lantus Solostar U-100 Insulin) 100 unit/mL (3 mL) penIndications:Ty pe 2 diabetes mellitus without complication, with long-term current use of insulin (HC) Inject 38-40 units subcutaneous before bedtime. 39 mL 2 025 Active hydrOXYzine HCL 25 mg tabletIndications :Anxiety Take 0.5-2 Tablets (12.5-50 mg) by mouth every 6 hours if needed for Anxiety. May make you drowsy. 25 Tablet 1 025 Active amLODIPine 5 mg tabletIndications :Primary hypertension TAKE 1 TABLET (5 MG) BY MOUTH ONCE DAILY. FOR BLOOD PRESSURE. 90 Tablet 2 025 Active amLODIPine (NORVASC) 5 mg tabletIndications :Primary hypertension Take 1 Tablet (5 mg) by mouth once daily. For blood pressure. 90 Tablet 025 2024 Discontinued Hospital, Clinic, or Other Facility Administered Medication Ordered Dose Route Frequency Start Date End Date Status NaCl 0.9% 250 mL infusionIndications:COVID-19 25 mL/hr IV CONTINUOUS 01/01/2021 Active Active Problems Problem Noted Date Diagnosed Date Chronic GERD 11/21/2024 Overview (12/04/2024): November 2024: results of EGD pathology: Non-erosive reactive gastropathy . Gastrointestinal DrIrma recommended continuing current medications, avoid NSAIDs, aspirin, excess alcohol History of colon polyps 11/21/2024 Ascending aorta dilatation 08/23/2024 Overview (10/10/2024): August 2024: echocardiogram showed 4.3 cm max diameter of ascending aorta. October 2024: Dr. Overton Cardiology consult, recommended repeat echocardiogram in 1 year and good blood pressure control. Primary hypertension 08/19/2024 Overview (08/19/2024): August 2024: Formal new diagnosis. start Amlodipine 5mg. Hypertriglyceridemia 08/02/2023 Overview (08/02/2023): Jul 2023: Triglycerides over 500, but was 4 days after Thanksgiving. Plan to recheck. Hyperbilirubinemia 06/17/2022 Overview (06/17/2022): Jun 2022: Bilirubin elevated 2.3 after starting Atorvastatin (Lipitor) but also on Entyvio. Candidate for statin therapy due to risk of future cardiovascular event 04/17/2022 Overview (04/17/2022): Apr 2022: started Atorvastatin (Lipitor) 10mg daily. COVID-19 virus infection 12/26/2020 Overview (12/26/2020): December 2020: positive Covid-19 test. Type 2 diabetes mellitus wit hout complication, without long-term current use of insulin 11/07/2019 Overview (11/16/2023): previously had diabetes when on steroid for UC, then blood sugars became normal and off insulin. November 2019: blood sugars high, Hemoglobin A1c 7.6, starting metformin XR. February 2020: Metformin decreased to 500mg due to lowerish blood sugars and Hemoglobin A1c 5.09 Jan 2020. August 2021: Restarted metformin August 2021: when blood sugars increasing. November 2023: Restarted Lantus with A1c over 8 twice in a row. Chronic neck pain 07/05/2019 Overview (06/08/2020): Jun 2019: Epidural steroid injection of Cervical Spine IL at [facility]. May 2020: Epidural steroid injection of Cervical Spine C6-7 IL at [facility]. Minimal benefit. Bilateral sensorineural hearing loss 04/04/2018 Overview (04/04/2018): March 2018: formal testing done. Elevated liver function tests 06/30/2017 Overview (06/17/2022): Jun 2017: Hepatology visit [facility], Dr. Kylee Dailey: for elevated liver test and fatty liver, PLAN: MRCP, Liver antibodies and Liver Biopsy. Jun 2022: Bilirubin elevated 2.3 after starting Atorvastatin (Lipitor) but also on Entyvio. Headache syndrome 06/24/2017 Overview (04/07/2018): Jun 2017: Was in emergency room, had HCT. March 2018 ED visit. Negative head CT. Apr 2018: Referral back to Neurology. Chronic midline low back pain with left-sided sc iatica 09/17/2016 Overview (12/20/2016): Sep 2016: physical therapy ordered. December 2016: MRI shows L2-3 right disk with right nerve compression and L4-5 disc with mild/minor foraminal stenosis. Elevated glucose 03/30/2016 Overview (09/17/2016): March 2016: ER visit, blood sugar was 593, was on prednisone for UC when blood sugar was this high. A1c 7.6 at [facility] March 2016. Apr 2016: Follow up Hospital, on NPH 30 Units and Correction SS for Novolog insulin with meals. May 2016: off steroid, blood sugars greatly improved and now off insulin. Needs recheck. Sep 2016: A1c 5.1 essentially off all diabetic medications. Acute ulcerative colitis with rectal bleeding Overview (03/10/2016): February 2016: [facility] Colonoscopy biopsy proven UC. Started on oral steroid, azathioprine, mesalamine. 03/01/16: Dr. Ivey added Infliximab, continue azathioprine and oral steroid. Clostridium difficile diarrhea 02/02/2016 Overview (04/14/2016): Late January 2016: [facility] admission for dizziness after antibiotics, changed to vancomycin. 02/05/16: Dr. Nation suggested: double vanco to 250mg qid, consider retest for c diff, or referal to [place] or [facility] for fecal transplant?? vs colonoscopy to look for inflammatory bowel? Doesn't want to do repeat colonoscopy with acute Clostridium difficile infection. February 2016: repeat Clostridium difficile test at [facility] negative 02/16/16. March 2016: Recurrence with hospitalization at [facility], on oral vancomycin. Lower abdominal pain 03/24/2015 Overview (02/23/2016): March 2015: GI consult, Levsin was started. Also constipation. February 2016: Colonoscopy diagnosed with Ulcerative Colitis at [facility]. Adjustment disorder with anxious mood 03/04/2014 Overview (04/10/2018): February 2014: start sertraline (Zoloft). Stress from work. Patient stopped, not sure if it was helpful. Sep 2016: starting paroxetine. Apr 2018. Resumed Zoloft. No longer on Paxil. Olecranon bursitis 03/15/2013 Pulmonary nodule, left 12/02/2012 MRSA (methicillin resistant staph aureus) cultur e positive Overview (03/16/2014): 3 separate positive cultures for MRSA: right wrist, chest and elbow. Nasal Screening culture negative times 2: March 04 and March 16 2014. Resolved Problems Problem Noted Date Diagnosed Date Resolved Date Brain aneurysm 08/04/2017 04/15/2021 Overview (08/04/2017): Jul 2017: Saw neurology, 2mm ACOM aneurysm vs infundibulum. Recommend repeat CT Scan in 1 year, Neurology at [facility] favored not aneurysm. Encounters Date Type Department Care Team Description 5 Refill [facility] [address] [place] [address] Jairo Vasquez MD Refill Request (Amlodipine) 5 4:15 PM CDT Ancillary Procedure [facility] [address] [facility] [address] [place] [address] 5 Travel 5 3:05 PM CDT Office Visit [facility] [address] [place] [address] Jairo Vasquez MD Follow Up (Urgent care visit) 5 Travel 5 1:55 PM CDT - 5 11:59 PM CDT Hospital Encounter [facility] [address] [place] [address] Hilda Rivera, WEATHERSEAL TECHNICIAN Abdominal pain, LLQ (left lower quadrant) 5 12:45 PM CDT Office Visit [facility] [address] [place] [phone] Hilda Rivera, WEATHERSEAL TECHNICIAN Abdominal Pain 5 Travel 5 8:44 AM CDT - 5 9:[address] [facility] [address] [place] [address] Brandon Perales MD ESOPHAGOGASTRODUODENOSCOPY WITH BIOPSY 5 7:32 AM CDT Anesthesia Event [facility] [address] [place] [address] Ginger Garay, OSIEL 5 6:39 AM CDT - 5 8:52 AM CDT Hospital Encounter [facility] [address] [place] [address] Brandon Perales MD Discharge Disposition: Home Self Care 5 Travel 5 Telephone [facility] [address] [place] [address] Dago Ritchie MD Referral 5 Telephone [facility] [address] [facility] [address] [place] [phone] Cardiology, Anw Appointment 5 3:30 PM TECHNICAL SUPPORT SPECIALIST Office Visit [facility] [address] [place] [address] Jairo Vasquez MD Musculoskeletal Problem (Follow-up back pain ~ LEFT sided pain from neck to low back /Review MRI ) 5 2:55 PM TECHNICAL SUPPORT SPECIALIST Ancillary Procedure [facility] [address] [facility] [address] [place] [address] 5 2:50 PM TECHNICAL SUPPORT SPECIALIST Ancillary Procedure [facility] [address] [facility] [address] [place] [address] 5 2:45 PM TECHNICAL SUPPORT SPECIALIST Ancillary Procedure [facility] [address] [facility] [address] [place] [address] 5 1:30 PM TECHNICAL SUPPORT SPECIALIST Office Visit [facility] [address] [facility] [address] [place] [address] Deyanira Benítez MD Consult ( Bilateral hand pain, Bilateral hand pain, Neck pain on left side, Left-sided chest pain, Chronic left-sided low back pain with left-sided sciatica /) 5 Travel 5 3:30 PM TECHNICAL SUPPORT SPECIALIST Ancillary Procedure [facility] [address] [facility] [address] [place] [address] 5 4:50 PM TECHNICAL SUPPORT SPECIALIST Ancillary Procedure [address] [phone] 5 4:10 PM TECHNICAL SUPPORT SPECIALIST Office Visit [facility] [address] [place] [phone] Hilda Rivera, WEATHERSEAL TECHNICIAN Cough 5 Travel from Last 3 Months Immunizations Immunization Administration Dates Next Due COVID-19 vaccine (Moderna 100mcg/0.5mL) CESAR RDZ 02/05/2022,10/02/2021,09/04/2021 Hepatitis B (Adult) 06/06/2020,11/19/2019,2015 Influenza, IIV4 08/09/2022, 0,06/25/2019,2017,09/28/2017,04/26/2016 Pneumococcal Poly,23-Valent (Pneumovax) 04/03/2016 Td (Age >=7 Years) 01/26/1991 Tdap 04/23/2013 Family History Medical History Relation Name Comments [facility] Brother Thony reis Stroke Father Stef Brain Aneurysm Mother Hailey Cueto Anesthesia Problem No Family History Blood Disease No Family History Cancer-prostate No Family History Clotting disorder No Family History Relation Name Status Comments Brother Thony reis Alive Father Stef Alive Mother Hailey Cueto Alive Social History Tobacco Use Types Packs/Day Years Used Date Smoking Tobacco: Never Smokeless Tobacco: Never Tobacco Cessation:Counseling Given: Yes Alcohol Use Standard Drinks/Week Comments Yes 1 (1 standard drink = 0.6 oz pur e alcohol) PHQ-2 Answer Date Recorded PHQ-2 TOTAL SCORE 1 08/16/2024 Social Connections Answer Date Recorded Do you often feel lonely or isolated from those around you? 0 08/09/2024 Financial Resource Strain Answer Date R ecorded Difficulty of Paying Living Expenses 3 08/09/2024 Difficulty of Paying Living Expenses Not on file 08/09/2024 Food Insecurity Answer Date Recorded Do you worry your food will run out before you are able to buy more? 1 08/09/2024 Transportation Needs Answer Date Record ed Does lack of transportation keep you from medica l appointments? 1 08/09/2024 Does lack of transportation keep you from work, meetings or getting things that you need? 1 08/09/2024 Housing Stability Answer Date Recorded What is your housing situation today? 1 08/09/2024 Utilities Answer Date Recorded Do you have trouble paying f or utilities (for example, heat, electricity, water, phone)? 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 Not on file Not on dajuan e Obstetrics History Last Filed Vital Signs Vital Sign Reading Time Taken Comments Blood Pressure 129/88 12/31/2024 3:06 PM CDT Pulse 99 12/31/2024 3:06 PM CDT Temperature 37.1 C (98.7 F) 12/18/2024 3:07 PM CDT Respiratory Rate 16 12/18/2024 3:07 PM CDT Oxygen Saturation 96% 12/31/2024 3:06 PM CDT Inhaled Oxygen Concentration - - Weight 120.2 kg (264 lb 14.4 oz) 12/31/2024 3:06 PM CDT Height 193 cm (6' 4) 11/21/2024 7:04 AM CDT Body Mass Index 32.24 11/21/2024 7:04 AM CDT Plan of Treatment Upcoming Encounters Date Type Department Care Team (Late st Contact Info) Description 01/17/2025 10:30 AM CDT Office Visit [facility] [address] [place] [address] Dago Ritchie MD [address] [facility] [address] [place] [address] 01/17/2025 3:30 PM CDT Office Visit [facility] [address] [place] [address] Jairo Vasquez MD [address] [place] [address] Health Maintenance Due Date Last Done Comments Pneumococcal series for age 50+ (2 of 2 - PCV) 04/03/2017 04/03/2016 Tetanus booster 04/23/2023 04/23/2013, 01/26/1991 COVID-19 vaccine series ( season) 2024 02/05/2022, 10/02/2021, 09/04/2021 Zoster (shingles) series for age 50+ (1 of 2) 2024 Colonoscopy through age 75 04/01/2025 04/01/2015 Influenza Vaccine (Season Ended) 2025 08/09/2022, 06/06/2020, 06/25/2019, Additional history exists Depression screening for age 12+ 08/20/2025 08/20/2024, 08/16/2024, 08/01/2023, Additional history exists BMI (ht and wt on same day) for age 18+ 11/01/2025 11/01/2024, 10/09/2024, 03/16/2024, Additional history exists Lipids for age 45-75 08/16/2029 08/16/2024, 08/01/2023, 08/01/2023, Additional history exists Tdap Completed 04/23/2013 HIV for age 15-65 Completed 03/04/2014 Hepatitis B series for Diabetes Completed 06/06/2020, 11/19/2019, 02/22/2016 Hepatitis C screening for ag e 18-79 Completed 11/01/2024, 06/15/2022 Procedures Procedure Name Priority Date/Time Associated Diagnosis Comments MR SPINE CERVICAL WO Routine 01/08/2025 4:33 PM CDT Left-sided chest pain Neck pain on left side CT ABDOMEN PELVIS W STAT 12/18/2024 2:35 PM CDT Abdominal pain, LLQ (left lower quadrant) UA W/ SEDIMENT EXAM REFLEXED PER CRITERIA STAT 12/18/2024 2:20 PM CDT Abdominal pain, LLQ (left lower quadrant) LIPASE Routine 12/18/2024 2:01 PM CDT Abdominal pain, generalized LYME SCREEN W/REFLEX Routine 12/18/2024 2:01 PM CDT Polyarthropathy CBC WITH AUTO DIFFERENTIAL STAT 12/18 1:58 PM CDT Abdominal pain, LLQ (left lower quadrant) CBC WITH AUTO DIFFERENTIAL STAT 12/18 1:58 PM CDT Abdominal pain, LLQ (left lower quadrant) BASIC METABOLIC PANEL STAT 12/18/2024 1:58 PM CDT Abdominal pain, LLQ (left lower quadrant) PATH TISSUE EXAM Today 11/21/2024 7:42 AM CDT ESOPHAGOGASTRODUODENOSCOPY W ITH BIOPSY 11/21/2024 7:31 AM CDT Gastroesophageal reflux disease, unspecified whether esophagitis present ENDOSCOPY 11/21/2024 7:20 AM CDT XR SACROILIAC JOINT 3 VIEWS BILATERAL Routine 11/01/2024 2:59 PM TECHNICAL SUPPORT SPECIALIST Polyarthralgia Chronic left-sided low back pain with left-sided sciatica Ulcerative pancolitis without complication (HC) XR ELBOW 2 VIEWS BILATERAL Routine 11/01 2:52 PM TECHNICAL SUPPORT SPECIALIST Polyarthralgia Lateral epicondylitis of right elbow Ulcerative pancolitis without complication (HC) XR HAND 2 VIEWS BILATERAL Routine 2024 2:49 PM TECHNICAL SUPPORT SPECIALIST Polyarthralgia Bilateral hand pain Ulcerative pancolitis without complication (HC) UA W/ SEDIMENT EXAM REFLEXED PER CRITERIA STAT 11/01/2024 2:41 PM TECHNICAL SUPPORT SPECIALIST COLLETTE positive C-REACTIVE PROTEIN Routine 11/01/2024 2:36 PM TECHNICAL SUPPORT SPECIALIST Polyarthralgia SEDIMENTATION RATE Routine 11/01/2024 2:36 PM TECHNICAL SUPPORT SPECIALIST Polyarthralgia URIC ACID Routine 11/01/2024 2:36 PM TECHNICAL SUPPORT SPECIALIST Polyarthralgia RA QUANTITATIVE Routine 11/01/2024 2:36 PM TECHNICAL SUPPORT SPECIALIST Polyarthralgia CYCLIC CITRULLINE PEPTIDE Routine 2024 2:36 PM TECHNICAL SUPPORT SPECIALIST Polyarthralgia HLA B 27 DISEASE ASSOCIATION Routine 2:36 PM TECHNICAL SUPPORT SPECIALIST Polyarthralgia Lateral epicondylitis of right elbow Ulcerative pancolitis without complication (HC) ANTI HBC Routine 11/01/2024 2:36 PM TECHNICAL SUPPORT SPECIALIST Polyarthralgia HBSAG (HBS) Routine 11/01/2024 2:36 PM TECHNICAL SUPPORT SPECIALIST Polyarthralgia ANTI HCV Routine 11/01/2024 2:36 PM TECHNICAL SUPPORT SPECIALIST Polyarthralgia TSH Routine 11/01/2024 2:36 PM TECHNICAL SUPPORT SPECIALIST Polyarthralgia C4 COMPLEMENT Routine 11/01/2024 2:36 PM TECHNICAL SUPPORT SPECIALIST COLLETTE positive C3 COMPLEMENT Routine 11/01/2024 2:36 PM TECHNICAL SUPPORT SPECIALIST COLLETTE positive DNA DOUBLE-STRANDED (DSDNA) ANTIBODIES BY KARLY HARKINS IFA Routine 11/01/2024 2:36 PM TECHNICAL SUPPORT SPECIALIST COLLETTE positive PROTEIN/CREAT RATIO,URINE Routine 2024 2:33 PM TECHNICAL SUPPORT SPECIALIST COLLETTE positive MR SPINE LUMBAR WO Routine 10/26/2024 3:42 PM TECHNICAL SUPPORT SPECIALIST Chronic left-sided low back pain with left-sided sciatica CBC WITH AUTO DIFFERENTIAL STAT 10/25 5:09 PM TECHNICAL SUPPORT SPECIALIST Cough, unspecified type BASIC METABOLIC PANEL STAT 10/25/2024 5:09 PM TECHNICAL SUPPORT SPECIALIST Cough, unspecified type CBC WITH AUTO DIFFERENTIAL STAT 10/25 5:09 PM TECHNICAL SUPPORT SPECIALIST Cough, unspecified type XR CHEST 2 VIEWS PA AND LATERAL STAT 10/25/2024 5:04 PM TECHNICAL SUPPORT SPECIALIST Cough, unspecified type LIPID PANEL W REFLEX MEASURE D LDL Routine 08/16/2024 3:16 PM TECHNICAL SUPPORT SPECIALIST Type 2 diabetes mellitus without complication, with long-term current use of insulin (HC) Hypertriglyceridem ia Candidate for statin therapy due to risk of future cardiovascular event ANTI HIV 1/2 Routine 03/04/2014 8:54 AM CDT Screen for STD (sexually transmitted disease) from Last 3 Months or Most Recently Relevant to Health Maintenance Results * MR SPINE CERVICAL WO (01/08/2025 4:33 PM CDT) Anatomical Region Laterality Modality Spine, CERVICAL SPINE Magnetic R esonance 01/08/2025 4:38 PM CDT Impressions 01/08/2025 4:38 PM CDT 1. Normal alignment. No fractures 2. Interval postoperative changes discectomy and disc prosthesis C5-6. Associated artifact 3. Grossly normal cord signal 4. At C5-6, mild narrowing of left neural foramina 5. No spinal canal or neural foraminal narrowing at the remaining levels Dictated by Dmitriy Pace MD @ 01/08/2025 4:38:14 PM (Electronically Signed) Narrative 01/08/2025 4:38 PM CDT For Patients: As a result of the Cures Act, medical imaging exams and procedure reports are released immediately into your electronic medical record. You may view this report before your referring provider. If you have questions, please contact your health care provider. INDICATION: Left chest pain. Left neck pain. COMPARISON: 06/07/2019. TECHNIQUE: Sagittal T1, T2, and STIR sequences. Axial T2/gradient sequences. FINDINGS: Normal vertebral body facet alignment. No fractures. No vertebral body loss of height. No spondylolisthesis. No ligamentous injury. Interval postop changes of discectomy and disc prosthesis at C5-6. Associated artifact. Grossly normal cord signal. No intradural mass or lesion. C1-2: No spinal canal narrowing. C2-3: No spinal canal or neural foraminal narrowing. C3-4: No spinal canal or neural foraminal narrowing. C4-5: Mild disc degeneration. No narrowing of spinal canal. No neural foraminal narrowing. C5-6: Postoperative changes. No narrowing of spinal canal. Uncovertebral joint hypertrophy contributes to mild narrowing of the left neural foramen. No narrowing of the right neural foramen. C6-7: No spinal canal neural foraminal narrowing. C7-T1: Disc degeneration and posterior disc bulge. No narrowing of spinal canal. No neural foraminal narrowing. No spinal canal or neural foraminal narrowing in the visualized upper thoracic spine. Procedure Note Dmitriy Pace MD, PhD - 01/08/2025 For Patients: As a result of the Cures Act, medical imagingexams and procedure reports are released immediately into your electronicmedical record. You may view this report before your referring provider.If you have questions, please contact your health care provider. INDICATION: Left chest pain. Left neck pain. COMPARISON: 06/07/2019. TECHNIQUE: Sagittal T1, T2, and STIR sequences. Axial T2/gradient sequences. FINDINGS: Normal vertebral body facet alignment. No fractures. No vertebral bodyloss of height. No spondylolisthesis. No ligamentous injury. Interval postop changes of discectomy and disc prosthesis at C5-6.Associated artifact. Grossly normal cord signal. No intradural mass or lesion. C1-2: No spinal canal narrowing. C2-3: No spinal canal or neural foraminal narrowing. C3-4: No spinal canal or neural foraminal narrowing. C4-5: Mild disc degeneration. No narrowing of spinal canal. No neuralforaminal narrowing. C5-6: Postoperative changes. No narrowing of spinal canal. Uncovertebraljoint hypertrophy contributes to mild narrowing of the left neuralforamen. No narrowing of the right neural foramen. C6-7: No spinal canal neural foraminal narrowing. C7-T1: Disc degeneration and posterior disc bulge. No narrowing of spinalcanal. No neural foraminal narrowing. No spinal canal or neural foraminal narrowing in the visualized upperthoracic spine. IMPRESSION: 1. Normal alignment. No fractures 2. Interval postoperative changes discectomy and disc prosthesis C5-6.Associated artifact 3. Grossly normal cord signal 4. At C5-6, mild narrowing of left neural foramina 5. No spinal canal or neural foraminal narrowing at the remaining levels Dictated by Dmitriy Pace MD @ 01/08/2025 4:38:14 PM (Electronically Signed) us Jairo Vasquez MD MR Final Res ult * CT ABDOMEN PELVIS W (12/18/2024 2:35 PM CDT) Anatomical Region Laterality Modality Abdomen, Pelvis, AORTA, LIVER, SPLEEN Computed Tomography 12/18/2024 3:03 PM CDT Impressions 12/18/2024 3:03 PM CDT 1. No acute intra-abdominal or pelvic abnormality. 2. Subcentimeter indeterminate exophytic left renal lesion is unchanged from the most recent comparison but was not present on the comparison exam from 2016. Lesion size may prevent optimal evaluation on a more immediate follow-up CT renal mass protocol, however, this could be considered. Alternatively, follow-up CT renal mass protocol in 12 months should be adequate given the already documented 1 year stability. 3. Fatty change of the liver. 4. Mild splenomegaly and portal vein dilatation consistent with underlying portal hypertension. No ascites. Dictated by Thony King MD @ 12/18/2024 3:02:57 PM Please note that all CT scans at this facility use dose modulation, iterative reconstruction, and/or weight-based dosing when appropriate to reduce radiation dose to as low as reasonably achievable. Dictated by: Thony King MD @ 12/18/2024 15:03:19 (Electronically Signed) Narrative 12/18/2024 3:03 PM CDT For Patients: As a result of the Cures Act, medical imaging exams and procedure reports are released immediately into your electronic medical record. You may view this report before your referring provider. If you have questions, please contact your health care provider. INDICATION: Abdominal pain, left lower quadrant. TECHNIQUE: CT abdomen and pelvis acquired with 100 mL of Omnipaque 300 IV contrast. COMPARISON: CT abdomen and pelvis 12/17/2023. CT abdomen and pelvis 02/13/2016. FINDINGS: Lower chest: Unremarkable. Liver: Fatty change. No focal lesion. Main portal vein is dilated to 15 mm. Spleen: Calcified granulomata and mild splenomegaly. Pancreas: Unremarkable. Gallbladder and bile ducts: No calcified stones or biliary ductal dilatation. Kidneys: Stable too small to characterize bilateral low-density lesions likely representing incidental cysts. An indeterminate 8 mm exophytic nodule in the lateral left kidney on image 95 of series 2 is unchanged but was not present on the comparison exam from 2016. No urolithiasis or hydronephrosis. Adrenal glands: Unremarkable. GI tract: No obstruction or focal inflammatory changes. Normal appendix. No free air or free fluid. Lymph nodes: No pathologic lymphadenopathy. Vascular structures: Unremarkable. Pelvic Organs: Unremarkable. Bones: No acute or suspicious osseous abnormality. Degenerative changes spine and pelvis. Procedure Note Thony King DO - 12/18/2024 For Patients: As a result of the Cures Act, medical imagingexams and procedure reports are released immediately into your electronicmedical record. You may view this report before your referring provider.If you have questions, please contact your health care provider. INDICATION: Abdominal pain, left lower quadrant. TECHNIQUE: CT abdomen and pelvis acquired with 100 mL of Omnipaque 300 IV contrast. COMPARISON: CT abdomen and pelvis 12/17/2023. CT abdomen and pelvis 02/13/2016. FINDINGS: Lower chest: Unremarkable. Liver: Fatty change. No focal lesion. Main portal vein is dilated to 15mm. Spleen: Calcified granulomata and mild splenomegaly. Pancreas: Unremarkable. Gallbladder and bile ducts: No calcified stones or biliary ductaldilatation. Kidneys: Stable too small to characterize bilateral low-density lesionslikely representing incidental cysts. An indeterminate 8 mm exophyticnodule in the lateral left kidney on image 95 of series 2 is unchanged butwas not present on the comparison exam from 2016. No urolithiasis orhydronephrosis. Adrenal glands: Unremarkable. GI tract: No obstruction or focal inflammatory changes. Normal appendix.No free air or free fluid. Lymph nodes: No pathologic lymphadenopathy. Vascular structures: Unremarkable. Pelvic Organs: Unremarkable. Bones: No acute or suspicious osseous abnormality. Degenerative changesspine and pelvis. IMPRESSION: 1. No acute intra-abdominal or pelvic abnormality. 2. Subcentimeter indeterminate exophytic left renal lesion is unchangedfrom the most recent comparison but was not present on the comparison examfrom 2016. Lesion size may prevent optimal evaluation on a more immediatefollow-up CT renal mass protocol, however, this could be considered.Alternatively, follow-up CT renal mass protocol in 12 months should beadequate given the already documented 1 year stability. 3. Fatty change of the liver. 4. Mild splenomegaly and portal vein dilatation consistent with underlyingportal hypertension. No ascites. Dictated by Thony King MD @ 12/18/2024 3:02:57 PM Please note that all CT scans at this facility use dose modulation,iterative reconstruction, and/or weight-based dosing when appropriate toreduce radiation dose to as low as reasonably achievable. Dictated by: Thony King MD @ 12/18/2024 15:03:19 (Electronically Signed) us Hilda E Furlong WEATHERSEAL TECHNICIAN CT Final Result * STAT Urinalysis w/ reflex to Microscopic (12/18/2024 2:20 PM CDT) Only the most recent of2 resultswithin the time period is included. COLOR Yellow Yellow Color 12/18/2024 2:29 PM CDT [facility] CLARITY Clear Clear Clarity 12/18/2024 2:29 PM CDT [facility] SPECIFIC GRAVITY,URINE 1.010 1.010, 1.015, 1.020, 1.025 12/18/2024 2:29 PM CDT [facility] PH,URINE 6.0 6.0, 7.0, 8.0, 5.5, 6.5, 7.5, 8.5 12/18/2024 2:29 PM CDT [facility] UROBILINOGEN, QUALITATIVE Normal Normal EU/dl 12/18/2024 2:29 PM CDT [facility] PROTEIN, URINE Negative Negative mg/dL 12/18/2024 2:29 PM CDT [facility] GLUCOSE, URINE Negative Negative mg/dL 12/18/2024 2:29 PM T [facility] KETONES,URINE Negative Negative mg/dL 12/18/2024 2:29 PM CDT [facility] BILIRUBIN,URI NE Negative Negative 12/18/2024 2:29 PM CDT [facility] OCCULT BLOOD,URINE Negative Negative 12/18/2024 2:29 PM T [facility] NITRITE Negative Negative 12/18/2024 2:29 PM CDT [facility] LEUKOCYTE ESTERASE Negative Negative 12/18/2024 2:29 PM T [facility] Urine URINE SPECIMEN / Unknown Non-Blood / Unknown 12/18/2024 2:20 PM CDT 12/18/2024 2:20 PM CDT us Hilda E Furlong WEATHERSEAL TECHNICIAN URINE Final Result [facility] [address] [place] [address] * LYME SCREEN W/REFLEX (12/18/2024 2:01 PM CDT) LYME AB, SCREEN < or = 0.90 index [facility], Comment: REFERENCE RANGE: < OR = 0.90 Index Index Interpretation < OR = 0.90 NEGATIVE 0.91 - 1.09 EQUIVOCAL > OR = 1.10 POSITIVE This assay measures Lyme Disease (Borrelia burgdorferi) IgG plus IgM antibodies; it does not distinguish results that are both IgG and IgM positive from results that are either IgG or IgM positive. As recommended by the Centers for Disease Control and Prevention (CDC), all samples with positive or equivocal results in this screening assay will be tested using separate supplemental Lyme IgG and IgM immunoassays. Positive or equivocal screening assay results should not be interpreted as truly positive until verified as such using the supplemental assays. Screening and/or supplemental tests for Lyme disease antibodies may be falsely negative in early stages of Lyme disease, including the period when erythema migrans is apparent. These assays may be falsely positive in patients with other spirochetal diseases (e.g., syphilis) or infectious mononucleosis. Blood BLOOD SPECIMEN / Unknown 12/18/2024 2:01 PM CDT 12/18/2024 2:04 PM CDT Jairo Vasquez MD SEND OUTS Final Res ult Performing Organization Address City/[facility]/ZIP Co de Phone Number [facility] [facility] [place] [address] [place] [address], [facility] [facility] [place], [address] [place] [address] * LIPASE (12/18/2024 2:01 PM CDT) [facility] LIPASE 39 7 - 60 U/L [facility] Blood BLOOD SPECIMEN / Unknown 12/18/2024 2:01 PM CDT 12/18/2024 2:04 PM CDT Jairo Vasquez MD CHEMISTRY Final Res ult [facility] [employer] [facility] [address] [place] [address], [facility] [address] [place] [address] * CBC WITH AUTO DIFFERENTIAL (12/18/2024 1:58 PM CDT) Only the most recent of2 resultswithin the time period is included. WHITE BLOOD COUNT 6.7 4.5 - 11.0 thou/cu mm 12/18/2024 2:25 PM [facility] RED BLOOD COUNT 5.41 4.30 - 5.90 mil/cu mm 12/18/2024 2:25 PM [facility] HEMOGLOBIN 16.2 13.5 - 17.5 g/dL 12/18/2024 2:25 PM [facility] HEMATOCRIT 46.8 37.0 - 53.0 % 12/18/2024 2:25 PM [facility] MCV 87 80 - 100 fL 12/18/2024 2:25 PM [facility] MCH 29.9 26.0 - 34.0 pg 12/18/2024 2:25 PM [facility] MCHC 34.6 32.0 - 36.0 g/dL 12/18/2024 2:25 PM [facility] RDW 13.7 11.5 - 15.5 % 12/18/2024 2:25 PM [facility] PLATELET COUNT 212 140 - 440 thou/cu mm 12/18/2024 2:25 PM [facility] MPV 10.4 6.5 - 11.0 fL 12/18/2024 2:25 PM [facility] % NEUT 57.5 % 12/18/2024 2:25 PM [facility] % LYMPH 35.5 % 12/18/2024 2:25 PM [facility] % MONO 5.6 % 12/18/2024 2:25 PM [facility] % EOS 1.0 % 12/18/2024 2:25 PM [facility] % BASO 0.4 % 12/18/2024 2:25 PM [facility] ABSOLUTE NEUTROPHILS 3.9 1.7 - 7.0 thou/cu mm 12/18/2024 2:25 PM [facility] ABSOLUTE LYMPHOCYTES 2.4 0.9 - 2.9 thou/cu mm 12/18/2024 2:25 PM CDT [facility] ABSOLUTE MONOCYTES 0.4 <0.9 thou/cu mm 12/18/2024 2:25 PM CDT [facility] ABSOLUTE EOSINOPHILS 0.1 <0.5 thou/cu mm 12/18/2024 2:25 PM CDT [facility] ABSOLUTE BASOPHILS 0.0 <0.3 thou/cu mm 12/18/2024 2:25 PM T [facility] Blood BLOOD SPECIMEN / Unknown [facility] / Unknown 12/18/2024 1:58 PM CDT 12/18/2024 1:58 PM CDT us Hilda E Nicole WEATHERSEAL TECHNICIAN HEMATOLOGY Final Result [facility] [address] [place] [id number] * (ABNORMAL) STAT Basic Metabolic Panel BMP (12/18/2024 1:58 PM CDT) Only the most recent of2 resultswithin the time period is included. SODIUM 142 136 - 145 mmol/L 12/18/2024 2:45 PM [facility] POTASSIUM 3.9 3.5 - 5.1 mmol/L 12/18/2024 2:45 PM [facility] CHLORIDE 106 98 - 107 mmol/L 12/18/2024 2:45 PM [facility] CO2,TOTAL 27 22 - 29 mmol/L 12/18/2024 2:45 PM [facility] ANION GAP 9 5 - 18 12/18/2024 2:45 PM [facility] GLUCOSE 122(H) 70 - 99 mg/dL 12/18/2024 2:45 PM [facility] CALCIUM 9.8 8.8 - 10.4 mg/dL 12/18/2024 2:45 PM [facility] Comment: Reference ranges for this test were updated on 07/10/2024 to reflect our healthy population more accurately. Reference range changes are not retroactively applied to results, but previous results using the same methodology can be interpreted in the context of the new reference range. BUN 13 6 - 20 mg/dL 12/18/2024 2:45 PM CDT [facility] CREATININE 0.88 0.70 - 1.20 mg/dL 12/18/2024 2:45 PM CDT [facility] BUN/CREAT RATIO 15 10 - 20 2:45 PM CDT [facility] eGFR >90 >90 mL/min/1. 73m2 12/18/2024 2:45 PM CDT [facility] Comment:As of 2021, eG FR is calculated by the CKD-EPI creatinine equation without race adjustment. eGFR can be influenced by muscle mass, exercise, and diet. The reported eGFR is an estimation only and is only applicable if the renal function is stable. Blood BLOOD SPECIMEN / Unknown [facility] / Unknown 12/18/2024 1:58 PM CDT 12/18/2024 1:58 PM CDT us Hilda E Furlobandar WEATHERSEAL TECHNICIAN CHEMISTRY Final Result [facility] [address] [place] [address] * PATH TISSUE EXAM (11/21/2024 7:42 AM CDT) Case Report Pathology Report Case: [id number] Authorizing Provider: Brandon Perales MD Collected: 11/21/2024 0742 Ordering Location: [facility] Received: 11/22/2024 [address] [facility] Pathologist: Adrian Soares MD Specimens: A) - Antrum Biopsy, gastric antrum/ gastric body B) - GE Junction Biopsy 11/26/2024 8:32 AM CDT [facility] Final Diagnosis A) STOMACH, ANTRUM AND BODY, BIOPSY: 1. Non-erosive reactive gastropathy (see comment) a. Sampling: Antral and body mucosae b. Distribution: Antral mucosa 2. Negative for inflammation, atrophy and Helicobacter B) GE JUNCTION, BIOPSY: 1. Normal esophageal squamous mucosa 2. Negative for reflux changes and eosinophilic esophagitis 3. Negative for columnar mucosa 11/26/2024 8:32 AM CDT [facility] at 0832 CDT Comment A) The likely etiology is an ongoing non-inflammatory type mucosal injury due to a chemical type of injury; this may be due to ingestion of non-steroidal anti-inflammator y drugs, aspirin (via prostaglandin-me diated injury), excess alcohol, corticosteroids, or bile/alkaline reflux, the latter usually in the setting of a gastroenteric anastomosis. 11/26/2024 8:32 AM CDT [facility] [place] [facility] Clinical Information Mr. Reis is a 49 y.o. with GERD who undergoes upper GI endoscopy. 11/26/2024 8:32 AM CDT [facility] Gross Description A) Received in formalin are 6 canela mucosal fragments averaging 2 mm in greatest dimension, which are entirely submitted in one cassette. It is labeled with the patient's name and designated gastric antrum/gastric body. B) Received in formalin are 3 canela mucosal fragments averaging 2 mm in greatest dimension, which are entirely submitted in one cassette. It is labeled with the patient's name and designated GE junction biopsy kimnona ashvin. Gianluca Perez 11/23/2024 10:49 AM 11/26/2024 8:32 AM CDT [facility] Microscopic Description The final diagnosis is based on microscopic examination of appropriate sections of all specimens. 11/26/2024 8:32 AM CDT [facility] [place] [facility] Additional Information Interpreted at [facility] D[facility], Central Laboratory - [address], [place] [address] 11/26/2024 8:32 AM CDT [facility] Biopsy (Antrum Biopsy) 11/21/2024 7:42 AM CDT 11/22/2024 1:11 PM CDT Biopsy specimen (specimen) (GE Junction Biopsy) 11/21/2024 7:44 AM CDT 11/22/2024 1:11 PM CDT Brandon Perales MD PATHOLOGY/CYTOLOGY Final R esult [facility] [address] [place] [address], [place] * ENDOSCOPY (11/21/2024 7:20 AM CDT) 11/21/2024 7:20 AM CDT Narrative Transcriptions Brandon Perales MD - 11/21/2024 7:51 AM CDT Patient Name: Piotr Reis Procedure Date: 11/21/2024 Gender: Male Date of : 1975 Admit Type: Ambulatory Procedure: Upper GI endoscopy Proceduralist: Brandon Perales MD [facility] Referring MD: Jairo Vasquez MD Indications/Pre-Op Diagnosis: Gastro-esophageal reflux disease Medications: Propofol per Anesthesia Procedure Description: Risk of bleeding, infection, perforation, need for surgery and alternatives discussed. The endoscope GIF-HQ [id number] was introduced through the mouth,and advanced to the second part of duodenum. The upper GI endoscopy was accomplished without difficulty. The patient tolerated the procedure well. Complications: No immediate complications. Estimated Blood Loss & Specimen: Estimated blood loss: none. Findings: The examined esophagus was normal. Biopsies were taken with a cold forceps for histology. Verification of patient identification for the specimen was done. Estimated blood loss was minimal. The entire examined stomach was normal. Biopsies were taken with acold forceps for Helicobacter pylori testing. The examined duodenum was normal. Impressions/Post-Op Diagnosis: - Normal esophagus. Biopsied. - Normal stomach. Biopsied. - Normal examined duodenum. Recommendation: - Await pathology results. Moderate Sedation: See the other procedure note for documentation of moderate sedationwith intraservice time. Brandon Perales MD 11/21/2024 7:51:22 AM Note Initiated On: 11/21/2024 7:20 AM us Brandon Perales MD PROCEDURE ORD Final Resu lt * XR SACROILIAC JOINT 3 VIEWS BILATERAL (11/01/2024 2:59 PM TECHNICAL SUPPORT SPECIALIST) Anatomical Region Laterality Modality Pelvis, SI JOINTS [employer] catalino 11/01/2024 3:01 PM TECHNICAL SUPPORT SPECIALIST Narrative 11/01/2024 3:01 PM TECHNICAL SUPPORT SPECIALIST For Patients: As a result of the Cures Act, medical imaging exams and procedure reports are released immediately into your electronic medical record. You may view this report before your referring provider. If you have questions, please contact your health care provider. Indication: Polyarthralgia. Chronic left-sided low back pain with left-sided sciatica. Technique: Bilateral SI joints, three views Comparison: None. Impression: Mild degenerative hypertrophic change and subchondral sclerosis bilaterally. No erosions or ankylosis. Dictated by Charbel Dominique MD @ Nov 01 2024 3:01PM (Electronically Signed) [email or web address] Procedure Note Charbel Dominique MD - 11/01/2024 For Patients: As a result of the Cures Act, medical imagingexams and procedure reports are released immediately into your electronicmedical record. You may view this report before your referring provider.If you have questions, please contact your health care provider. Indication: Polyarthralgia. Chronic left-sided low back pain with left-sidedsciatica. Technique: Bilateral SI joints, three views Comparison: None. Impression: Mild degenerative hypertrophic change and subchondral sclerosisbilaterally. No erosions or ankylosis. Dictated by Charbel Dominique MD @ Nov 01 2024 3:01PM (Electronically Signed) [email or web address] us Deyanira Benítez MD GENERAL IMAGING Fin al Result * XR ELBOW 2 VIEWS BILATERAL (11/01/2024 2:52 PM TECHNICAL SUPPORT SPECIALIST) Anatomical Region Laterality Modality Digital Radiogra phy 11/01/2024 3:00 PM TECHNICAL SUPPORT SPECIALIST Narrative 11/01/2024 3:00 PM TECHNICAL SUPPORT SPECIALIST For Patients: As a result of the Cures Act, medical imaging exams and procedure reports are released immediately into your electronic medical record. You may view this report before your referring provider. If you have questions, please contact your health care provider. Indication: Polyarthralgia. Lateral epicondylitis of the right elbow. Technique: Bilateral elbows, two views Comparison: None. Impression: No erosions or joint space narrowing. No elbow joint effusions. Normal alignment. No fractures. The soft tissues are unremarkable. Dictated by Charbel Dominique MD @ Nov 01 2024 3:00PM (Electronically Signed) [email or web address] Procedure Note Charbel Dominique MD - 11/01/2024 For Patients: As a result of the Cures Act, medical imagingexams and procedure reports are released immediately into your electronicmedical record. You may view this report before your referring provider.If you have questions, please contact your health care provider. Indication: Polyarthralgia. Lateral epicondylitis of the right elbow. Technique: Bilateral elbows, two views Comparison: None. Impression: No erosions or joint space narrowing. No elbow joint effusions. Normalalignment. No fractures. The soft tissues are unremarkable. Dictated by Charbel Dominique MD @ Nov 01 2024 3:00PM (Electronically Signed) [email or web address] Deyanira Benítez MD GENERAL IMAGING Fin al Result * XR HAND 2 VIEWS BILATERAL (11/01/2024 2:49 PM TECHNICAL SUPPORT SPECIALIST) Anatomical Region Laterality Modality HAND L, HAND R, HANDS Digital Ra diography 11/01/2024 2:59 PM TECHNICAL SUPPORT SPECIALIST Narrative 11/01/2024 2:59 PM TECHNICAL SUPPORT SPECIALIST For Patients: As a result of the Cures Act, medical imaging exams and procedure reports are released immediately into your electronic medical record. You may view this report before your referring provider. If you have questions, please contact your health care provider. Indication: Polyarthralgia. Bilateral hand pain. Ulcerative pancolitis. Technique: Bilateral hands, two views Comparison: None. Impression: No erosions or joint space narrowing. No soft tissue swelling. No subluxation. Normal mineralization. Minimal degenerative hypertrophic change at multiple bilateral IP joints. Dictated by Charbel Dominique MD @ Nov 01 2024 2:59PM (Electronically Signed) [email or web address] Procedure Note Charbel Dominique MD - 11/01/2024 For Patients: As a result of the Cures Act, medical imagingexams and procedure reports are released immediately into your electronicmedical record. You may view this report before your referring provider.If you have questions, please contact your health care provider. Indication: Polyarthralgia. Bilateral hand pain. Ulcerative pancolitis. Technique: Bilateral hands, two views Comparison: None. Impression: No erosions or joint space narrowing. No soft tissue swelling. Nosubluxation. Normal mineralization. Minimal degenerative hypertrophicchange at multiple bilateral IP joints. Dictated by Charbel Dominique MD @ Nov 01 2024 2:59PM (Electronically Signed) [email or web address] us Deyanira Benítez MD GENERAL IMAGING Fin al Result * SEDIMENTATION RATE (11/01/2024 2:36 PM TECHNICAL SUPPORT SPECIALIST) SED RATE BY MODIFIED ISABELREN 2 < OR = 15 mm/h [facility] Blood BLOOD SPECIMEN / Unknown 11/01/2024 2:36 PM TECHNICAL SUPPORT SPECIALIST 11/01/2024 2:36 PM TECHNICAL SUPPORT SPECIALIST us Deyanira Benítez MD HEMATOLOGY Fin al Result Performing Organization Address City/[facility] Co de Phone Number [facility] [address] [place] [address], [facility] [address] [place] [address] * HLA B 27 DISEASE ASSOCIATION (11/01/2024 2:36 PM TECHNICAL SUPPORT SPECIALIST) Pathologist [facility] HLA B27 Negative Negative [employer] Comment: HLA B27 RESULTS REVIEWED BY see note [employer] [employer] [place] Comment: Lilibeth Clemente, Ph.D., [facility] [employer], Molecular Oncology The B27 allele group of the HLA-B locus is present in 2 to 9% of the general population. About 20% of HLA-B27 carriers develop autoimmune disorders including Ankylosing Spondylitis (), Reactive Arthritis, Psoriatic Arthritis, Undifferentiated Oligoarthritis, Uveitis, or Inflammatory Bowel Disease. The highest association is with , where approximately 95% of patients are HLA-B27 positive. Genetic counseling as needed. Typing performed by PCR and hybridization with sequence specific oligonucleotide probes (SSO) using the FDA-cleared LABType(R) SSO Kit. Blood BLOOD SPECIMEN / Unknown 11/01/2024 2:36 PM TECHNICAL SUPPORT SPECIALIST 11/01/2024 2:36 PM TECHNICAL SUPPORT SPECIALIST Deyanira Benítez MD SEND OUTS Fin al Result [facility] [address] [place], [place] , [email or web address] [address] [place], [place] * CYCLIC CITRULLINE PEPTIDE (11/01/2024 2:36 PM TECHNICAL SUPPORT SPECIALIST) Pathologist [facility] CYCLIC CITRULLINATED PEPTIDE (CCP) AB (IGG) <16 UNITS [facility] Comment: Reference Range Negative: <20 Weak Positive: 20-39 Moderate Positive: 40-59 Strong Positive: >59 Blood BLOOD SPECIMEN / Unknown 11/01/2024 2:36 PM TECHNICAL SUPPORT SPECIALIST 11/01/2024 2:36 PM TECHNICAL SUPPORT SPECIALIST Deyanira Benítez MD SEND OUTS Fin al Result Performing Organization Address [facility]/ZIP Co de Phone Number [facility] [address] [place] [address], [place] [phone] [facility] [address] [place] [address] * TSH (11/01/2024 2:36 PM TECHNICAL SUPPORT SPECIALIST) Pathologist [facility] TSH 1.99 0.40 - 4.50 mIU/L [facility] Blood BLOOD SPECIMEN / Unknown 11/01/2024 2:36 PM TECHNICAL SUPPORT SPECIALIST 11/01/2024 2:36 PM TECHNICAL SUPPORT SPECIALIST Deyanira Benítez MD CHEMISTRY Fin al Result Performing Organization Address [facility] Co de Phone Number [facility] [employer] [facility] [address] [place] [address], [place] [phone] [facility] [address] [place] [address] * HBSAG (HBS) (11/01/2024 2:36 PM TECHNICAL SUPPORT SPECIALIST) Pathologist [facility] HEPATITIS B SURFACE ANTIGEN NON-REACTI VE NON-REACTI VE [facility] Comment: For additional information, please refer to http://education.[employer].Market76/faq/DTF633 (This link is being provided for informational/ educational purposes only.) Blood BLOOD SPECIMEN / Unknown 11/01/2024 2:36 PM TECHNICAL SUPPORT SPECIALIST 11/01/2024 2:36 PM TECHNICAL SUPPORT SPECIALIST Deyanira Benítez MD SEND OUTS Fin al Result [employer] [facility] [address] [place] [address], [place] [phone] [facility] [address] [facility] [place] [address] * ANTI HCV (11/01/2024 2:36 PM TECHNICAL SUPPORT SPECIALIST) HEPATITIS C ANTIBODY NON-REACTI VE NON-REACT JOVANNA [email or web address] Comment: HCV antibody was non-reactive. There is no laboratory evidence of HCV infection. In most cases, no further action is required. However, if recent HCV exposure is suspected, a test for HCV RNA (test code 04290) is suggested. For additional information please refer to http://education.Tandem/faq/OHM21j4 (This link is being provided for informational/ educational purposes only.) Blood BLOOD SPECIMEN / Unknown 11/01/2024 2:36 PM TECHNICAL SUPPORT SPECIALIST 11/01/2024 2:36 PM TECHNICAL SUPPORT SPECIALIST Deyanira Benítez MD SEND OUTS Fin al Result Performing Organization Address [facility] de Phone Number [facility] [address] [place] [address], [place] [phone] [email or web address] [address] [place] [address] * RA QUANTITATIVE (11/01/2024 2:36 PM TECHNICAL SUPPORT SPECIALIST) Pathologist [facility] RHEUMATOID FACTOR <10 <14 IU/mL [employer] [facility] Blood BLOOD SPECIMEN / Unknown 11/01/2024 2:36 PM TECHNICAL SUPPORT SPECIALIST 11/01/2024 2:36 PM TECHNICAL SUPPORT SPECIALIST Deyanira Benítez MD SEND OUTS Fin al Result Performing Organization Address [facility]/ZIP Co de Phone Number [facility] [address] [place] [address], [place] [phone] [facility] [address] [place] [address] * C3 COMPLEMENT (11/01/2024 2:36 PM TECHNICAL SUPPORT SPECIALIST) COMPLEMENT COMPONENT C3C 146 82 - 185 mg/dL [facility] Blood BLOOD SPECIMEN / Unknown 11/01/2024 2:36 PM TECHNICAL SUPPORT SPECIALIST 11/01/2024 2:36 PM TECHNICAL SUPPORT SPECIALIST Deyanira Benítez MD CHEMISTRY Fin al Result Performing Organization Address City/[facility]/ZIP Co de Phone Number [facility] [employer] [facility] [address] [place] [address], [place] [phone] [email or web address] [address] [place] [address] * C4 COMPLEMENT (11/01/2024 2:36 PM TECHNICAL SUPPORT SPECIALIST) COMPLEMENT COMPONENT C4C 20 15 - 53 mg/dL [email or web address] Blood BLOOD SPECIMEN / Unknown 11/01/2024 2:36 PM TECHNICAL SUPPORT SPECIALIST 11/01/2024 2:36 PM TECHNICAL SUPPORT SPECIALIST Deyanira Benítez MD CHEMISTRY Fin al Result Performing Organization Address City/[facility]/ZIP Co de Phone Number [facility] [employer] [facility] [address] [place] [address], [place] [phone] [facility] [address] [place] [address] * ANTI HBC (11/01/2024 2:36 PM TECHNICAL SUPPORT SPECIALIST) HEPATITIS B CORE AB TOTAL NON-REACTI VE NON-REACTI VE [facility] Comment: For additional information, please refer to http://education.Tandem/faq/WUK893 (This link is being provided for informational/ educational purposes only.) Blood BLOOD SPECIMEN / Unknown 11/01/2024 2:36 PM TECHNICAL SUPPORT SPECIALIST 11/01/2024 2:36 PM TECHNICAL SUPPORT SPECIALIST Deyanira Bneítez MD SEND OUTS Fin al Result [facility] [address] [facility] [place] [address], [place] [phone] [facility] [address] [facility] [place] [address] * DNA DOUBLE-STRANDED (DSDNA) ANTIBODIES BY CRITHIDIA LUCILIAE IFA (11/01/2024 2:36 PM TECHNICAL SUPPORT SPECIALIST) DNA (DS) ANTIBODY <1 IU/mL [facility] Comment: IU/mL Interpretation < or = 4 Negative 5-9 Indeterminate > or = 10 Positive Blood BLOOD SPECIMEN / Unknown 11/01/2024 2:36 PM TECHNICAL SUPPORT SPECIALIST 11/01/2024 2:36 PM TECHNICAL SUPPORT SPECIALIST Deyanira Benítez MD SEND OUTS Fin al Result Performing Organization Address [facility]/ZIP Co de Phone Number [facility] [address] [place] [address], [place] [phone] [facility] [address] [facility] [place] [address] * C-REACTIVE PROTEIN (11/01/2024 2:36 PM TECHNICAL SUPPORT SPECIALIST) C-REACTIVE PROTEIN <3.0 <8.0 mg/L [facility] Blood BLOOD SPECIMEN / Unknown 11/01/2024 2:36 PM TECHNICAL SUPPORT SPECIALIST 11/01/2024 2:36 PM TECHNICAL SUPPORT SPECIALIST Deyanira Benítez MD CHEMISTRY Fin al Result Performing Organization Address City/[facility]/ZIP Co de Phone Number [facility] [address] [facility] [address], [place] [phone] [facility] [address] [place] [address] * URIC ACID (11/01/2024 2:36 PM TECHNICAL SUPPORT SPECIALIST) URIC ACID 5.7 4.0 - 8.0 mg/dL [facility] Comment: Therapeutic target for gout patients: <6.0 mg/dL Blood BLOOD SPECIMEN / Unknown 11/01/2024 2:36 PM TECHNICAL SUPPORT SPECIALIST 11/01/2024 2:36 PM TECHNICAL SUPPORT SPECIALIST Deyanira Benítez MD CHEMISTRY Fin al Result [employer] [facility] [address] [place] [address], [place] [phone] [email or web address] [address] [place] [address] * PROTEIN/CREAT RATIO,URINE (11/01/2024 2:33 PM TECHNICAL SUPPORT SPECIALIST) Pathologist [facility] PROTEIN QUANT,RAND URINE 8 1 - 14 mg/dL 11/01/2024 10:58 PM TECHNICAL SUPPORT SPECIALIST [facility] CREAT,RANDOM URINE 141.0 39.0 - 259.0 mg/dL 11/01/2024 10:58 PM TECHNICAL SUPPORT SPECIALIST [facility] PROT/CREAT RATIO,UR 0.1 <0.2 11/01/2024 10:58 PM TECHNICAL SUPPORT SPECIALIST [facility] Urine URINE SPECIMEN / Unknown Non-Blood / Unknown 11/01/2024 2:33 PM TECHNICAL SUPPORT SPECIALIST 11/01/2024 2:33 PM TECHNICAL SUPPORT SPECIALIST Deyanira Benítez MD URINE Fin al Result [facility] [address] [place] [address], [place] * MR SPINE LUMBAR WO (10/26/2024 3:42 PM TECHNICAL SUPPORT SPECIALIST) Anatomical Region Laterality Modality Spine, LUMBAR SPINE Magnetic Res onance 10/26/2024 4:01 PM TECHNICAL SUPPORT SPECIALIST Narrative 10/26/2024 4:01 PM TECHNICAL SUPPORT SPECIALIST For Patients: As a result of the Cures Act, medical imaging exams and procedure reports are released immediately into your electronic medical record. You may view this report before your referring provider. If you have questions, please contact your health care provider. Indication: Chronic left-sided low back pain with left-sided sciatica Technique: Multiplanar, multisequence, MRI of the lumbar spine, obtained without contrast. Comparison: CT abdomen and pelvis 12/17/2023, MRI lumbar spine 12/16/2016 Findings: The lumbar lordosis is preserved. No significant spondylolisthesis. Vertebral body heights are grossly maintained. No evidence of acute fracture or focal compression deformity. Bone marrow signal appears within normal limits. The conus medullaris terminates at approximately L1. No suspicious findings in the prevertebral and paraspinal soft tissues. Included SI joints are unremarkable. T12-L1: No significant neural foraminal or spinal canal stenosis. L1-L2: Minimal disc bulge. No neural foraminal or spinal canal stenosis. L2-L3: Minimal disc bulge the left, mild right neural foraminal narrowing. No spinal canal stenosis.. L3-L4: Mild facet arthropathy. No neural foraminal or spinal canal stenosis. L4-L5: Minimal disc bulge, mild facet arthropathy. Mild left, mild-moderate right neural foraminal narrowing. No spinal canal stenosis. L5-S1: No neural foraminal or spinal canal stenosis. Impression: 1. Normal spinal alignment. No acute osseous abnormality. 2. Mild spondylosis as detailed, stable relative to 12/16/2016. 3. At L4-L5, mild-moderate right neural foraminal narrowing, and mild left neural foraminal narrowing. 4. At L2-L3, mild right neural foraminal narrowing. 5. No spinal canal stenosis. Dictated by Melissa Guallpa MD @ 10/26/2024 4:01:31 PM (Electronically Signed) Procedure Note Melissa Guallpa, - 10/26/2024 For Patients: As a result of the Cures Act, medical imagingexams and procedure reports are released immediately into your electronicmedical record. You may view this report before your referring provider.If you have questions, please contact your health care provider. Indication: Chronic left-sided low back pain with left-sided sciatica Technique: Multiplanar, multisequence, MRI of the lumbar spine, obtained withoutcontrast. Comparison: CT abdomen and pelvis 12/17/2023, MRI lumbar spine 12/16/2016 Findings: The lumbar lordosis is preserved. No significant spondylolisthesis.Vertebral body heights are grossly maintained. No evidence of acutefracture or focal compression deformity. Bone marrow signal appears withinnormal limits. The conus medullaris terminates at approximately L1. Nosuspicious findings in the prevertebral and paraspinal soft tissues.Included SI joints are unremarkable. T12-L1: No significant neural foraminal or spinal canal stenosis. L1-L2: Minimal disc bulge. No neural foraminal or spinal canal stenosis. L2-L3: Minimal disc bulge the left, mild right neural foraminal narrowing.No spinal canal stenosis.. L3-L4: Mild facet arthropathy. No neural foraminal or spinal canalstenosis. L4-L5: Minimal disc bulge, mild facet arthropathy. Mild left,mild-moderate right neural foraminal narrowing. No spinal canalstenosis. L5-S1: No neural foraminal or spinal canal stenosis. Impression: 1. Normal spinal alignment. No acute osseous abnormality. 2. Mild spondylosis as detailed, stable relative to 12/16/2016. 3. At L4-L5, mild-moderate right neural foraminal narrowing, and mild leftneural foraminal narrowing. 4. At L2-L3, mild right neural foraminal narrowing. 5. No spinal canal stenosis. Dictated by Melissa Guallpa MD @ 10/26/2024 4:01:31 PM (Electronically Signed) us Jairo Vasquez MD MR Final Res ult * XR CHEST 2 VIEWS PA AND LATERAL (10/25/2024 5:04 PM TECHNICAL SUPPORT SPECIALIST) Anatomical Region Laterality Modality CHEST, THORAX, Lung, HEART Compu antoni Radiography 10/25/2024 5:33 PM TECHNICAL SUPPORT SPECIALIST Impressions 10/25/2024 5:33 PM TECHNICAL SUPPORT SPECIALIST No focal consolidation. Dictated by Sopo Luisa,MD @ 10/25/2024 5:33:41 PM (Electronically Signed) Narrative 10/25/2024 5:33 PM TECHNICAL SUPPORT SPECIALIST For Patients: As a result of the Cures Act, medical imaging exams and procedure reports are released immediately into your electronic medical record. You may view this report before your referring provider. If you have questions, please contact your health care provider. INDICATION: Cough. TECHNIQUE: Chest 2 view(s) COMPARISON: Chest radiograph dated 09/22/2024. FINDINGS: Cardiomediastinal silhouette and pulmonary vasculature are normal. No focal consolidation. Stable calcified granuloma in the left upper lung. No layering pleural effusion. No pneumothorax. Multilevel degenerative changes of the visualized spine. Procedure Note Hina Moran MD - 10/25/2024 For Patients: As a result of the Cures Act, medical imagingexams and procedure reports are released immediately into your electronicmedical record. You may view this report before your referring provider.If you have questions, please contact your health care provider. INDICATION: Cough. TECHNIQUE: Chest 2 view(s) COMPARISON: Chest radiograph dated 09/22/2024. FINDINGS: Cardiomediastinal silhouette and pulmonary vasculature are normal. No focal consolidation. Stable calcified granuloma in the left upperlung. No layering pleural effusion. No pneumothorax. Multilevel degenerative changes of the visualized spine. IMPRESSION: No focal consolidation. Dictated by Hina Moran MD @ 10/25/2024 5:33:41 PM (Electronically Signed) Hilda Rivera WEATHERSEAL TECHNICIAN GENERAL IMAGING Final Result * LIPID PANEL W REFLEX MEASURED LDL (08/16/2024 3:16 PM TECHNICAL SUPPORT SPECIALIST) CHOLESTEROL, TOTAL 125 <200 mg/dL [facility] HDL CHOLESTEROL 46 > OR = 40 mg/dL [facility] TRIGLYCERIDES 126 <150 mg/dL [facility] LDL-CHOLESTEROL 58 mg/dL (calc) [facility] Comment: Reference range: <100 Desirable range <100 mg/dL for primary prevention; <70 mg/dL for patients with CHD or diabetic patients with > or = 2 CHD risk factors. LDL-C is now calculated using the Laury calculation, which is a validated novel method providing better accuracy than the Friedewald equation in the estimation of LDL-C. Mike SS et al. KAR. 2013;310(17): 2881-0022 (http://education.TotalTakeout/faq/KXB352) CHOL/HDLC RATIO 2.7 <5.0 (calc) [facility] NON HDL CHOLESTEROL 79 <130 mg/dL (calc) [facility] Comment: For patients with diabetes plus 1 major ASCVD risk factor, treating to a non-HDL-C goal of <100 mg/dL (LDL-C of <70 mg/dL) is considered a therapeutic option. Blood BLOOD SPECIMEN / Unknown 08/16/2024 3:16 PM TECHNICAL SUPPORT SPECIALIST 08/16/2024 3:16 PM TECHNICAL SUPPORT SPECIALIST Jairo Vasquez MD CHEMISTRY Final Res ult [facility] [address] [place] [address], [facility] [address] [place] [address] * ANTI HIV 1/2 (03/04/2014 8:54 AM CDT) Pathologist [facility] HIV-1/HIV-2 ANTIBODY Non-Reacti ve Non-Reacti ve 03/04/2014 4:40 PM CDT [facility] Blood specimen (specimen) BLOOD SPECIMEN / Unknown Venipuncture / Unknown 03/04/2014 8:54 AM CDT 03/04/2014 8:54 AM CDT Narrative [facility] - 03/04/2014 4:40 PM CDT HIV-1 p24 and HIV-1/HIV-2 Ab not detected us Jairo Vasquez MD SEND OUTS Final Res ult [facility] [address] [place] [address], from Last 3 Months or Most Recently Relevant to Health Maintenance Additional Health Concerns Infection Onset Date Last Indicated MRSA Clearance Comment:Infection Control Note: Hx of MRSA, surveillance criteria met, no need for further testing or isolation precautions. Do not delete or deactivate the FYI. 07/12/201803/2018 Insurance BLUE CROSS OF NON-SD-ITS WC TRAVELERS Advance Directives * Full Code (Latest Code Status on File) Date Activated Date Inactivated Comments 11/21/2024 6:47 AM 11/21/2024 10:57 AM Question Answer Comments Code Status Discussion: Discussed Care Teams Retail Operations Manager Relationship Specialty Start Date End Date Jairo Vasquez MD [address] [place] [address] PCP - General Family Practice 12/13/22 Kayode Ivey MD Gastroenterology Gastroenterology 02/26/16
--- OUTSIDE RECORDS SUMMARY | 2025-01-15 15:45 | XMS_ITS | Encounter Summary ---
Author Organization [place] Address [address] [place] [address] Care Team Providers Care Boot And Shoe Repairman Name Role Phone Jairo Vasquez MD Primary Care Provider [phone] Kylee Dailey MD Unavailable + Kayode Ivey MD Unavailable [phone] Nicolasa Perez APRN READINESS PARAPROFESSIONAL Unavaila ble Srinivas Stern PA-C Unavailable [phone] PitSrinivas mcintosh PA-C Unavailable [phone] Sue Mckeon [facility] Unavailable [phone] Karen Trinh MD Unavailable [phone] Violet Ta [facility] Unavailable [phone] Violet Ta [facility] Unavailable [phone] PitSrinivas mcintosh PA-C Unavailable [phone] Bandar Casas [facility] Unavailable Bandar Casas [facility] Unavailable Ayana Zhang PA-C Unavailable PitSrinivas mcintosh PA-C Unavailable [phone] Encounter Details Date Type Department Care Team (Late st Contact Info) Description 02/27/2021 [facility] MTM [address] [place] [phone] Sue Mckeon, [address] [address] Social History Tobacco Use Types Packs/Day Years Used Date Smoking Tobacco: Never Smokeless Tobacco: Never Alcohol Use Standard Drinks/Week Comments Yes 13 (1 standard drink = 0.6 oz pu re alcohol) MONTHLY PHQ-2 Answer Date Recorded PHQ-2 Score 1 01/28/2021 Sex and Gender Information Value Date Recorded Sex Assigned at Not on file Legal Sex 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 No / Unsure 01/28/2021 11:18 AM CDT documented as of this encounter Plan of Treatment Upcoming Encounters Date Type Department Care Team (Latest Contact Info) Description 02/13/2025 3:20 PM CDT Appointment [facility] [address] [facility] [address] [place] [phone] Kayode Ivey MD [address] [place], [place] [address] 03/07/2025 3:00 PM CDT Ancillary Procedure [facility] [address] [facility] [address] [place] [address] Srinivas Stern PA-C [address] [place] [address] [phone] 04/24/2025 2:40 PM CDT Virtual Visit [facility] [address] 4th [place] [phone] Alexis Torres MD [address] [place], [place] [address] Srinivas Stern PA-C [address] [place], [place] [address] 06/05/2025 3:30 PM CDT Virtual Visit [facility] [address] [facility] 2nd [place] [address] Kayode Ivey MD [address] [place], [place] [phone] Bandar Casas, [facility] [address] [facility] [address] [place], [place] [phone] documented as of this encounter Visit Diagnoses Not on filedocumented in this encounter Additional Health Concerns Infection Onset Date Last Indicated Resolved Time MRSA-Contact Isolation Comment: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, chest, and elbow 02/17/2016 02/17/2016 Rule Out C-difficile 10/04/2023 10/05/2023 024 7:28 PM SULFURIC 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 PLANT 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 C-difficile 10/05/2023 10/05/2023 11/04/2023 11:3 9 PM SULFURIC ACID PLANT SUPERVISOR Rule Out C-difficile 09/03/2024 09/04/2024 025 12:45 PM SULFURIC ACID PLANT SUPERVISOR Assessment Noted Time PHQ-9 Depression Total Score: 9 03/02/20 16 7:16 AM CDT documented as of this encounter Care Teams Boot And Shoe Repairman Relationship Specialty Start Date End Date Jairo Vasquez MD PCP - General Family Medicine - Sports Medicine 12/29/15 Kylee Dailey MD [address] [place] [address] [address] [place], [place] [address] Internal Medicine 04/01/17 Kayode Ivey MD [address] [place] [address] Gastroenterology 04/01/17 Nicolasa Perez APRN READINESS PARAPROFESSIONAL [address] [place] [address] [id number] [place] [address] Nurse Practitioner Nurse Practitioner 04/28/17 Srinivas Stern PA-C [address] [place] [address] [phone] Physician Budget Analyst Physician Budget Analyst 10/02/18 Srinivas Stern PA-C [address] [place] [address] [phone] Assigned Heart and Vascular Provider 11/19/20 06/27/21 Sue Mckeon [facility] [address] [place] [address] [phone] Pharmacist Pharmacist Manager Business Intelligence 02/09/21 06/29/22 Karen Trinh MD [address] [place] [address] [phone] Assigned Infectious Disease Provider 02/08/21 07/30/22 [facility] [address] [place] [address] Assigned MTM Pharmacist 02/27/22 05/21/22 Violet Ta, [facility] [address] [place] [address] Assigned MTM Pharmacist 06/02/22 07/09/22 Srinivas Stern PA-C [address] [place], [place] [address] Assigned Gastroenterology Provider 07/17/22 Bandar Casas RPH [address] [address] Pharmacist Pharmacist 08/18/23 Bandar Casas RP [address] [address] Assigned MTM Pharmacist 08/27/23 Ayana Zhang PA-C [address] [place] [address] [phone] Physician Budget Analyst Rheumatology 04/16/24 Srinivas Stern PA-C [address] [place] [address] [phone] Home Infusion Following Provider Gastroenterology 07/11/24 10/05/24 documented as of this encounter
--- OUTSIDE RECORDS SUMMARY | 2025-01-15 15:45 | XMS_ITS | Encounter Summary ---
Author Organization [facility] Address [address] [place] [address]. [place] [address] Care Team Providers Care Channel Rougher Name Role Phone Jairo Vasquez MD Primary Care Provider Kylee Dailey MD Unavailable + Kayode Ivey MD Unavailable [phone] Nicolasa Perez APRN SQL REPORT ANALYST Unavaila ble Srinivas Stern-C Unavailable Srinivas Stern-C Unavailable Bandar Casas [facility] Unavailable Bandar Casas [facility] Unavailable Ayana Zhang-C Unavailable Srinivas Stern-C Unavailable [phone] Encounter Details Date Type Department Care Team (Late st Contact Info) Description 12/07/2023 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 [address] [place] [address] Kayode Ivey MD [address] [place] [address] 03/07/2025 3:00 PM CDT Ancillary Procedure [facility] [address] [facility] [address] [place] [address] Srinivas Stern PA-C [address] [place] [address] 04/24/2025 2:40 PM CDT Virtual Visit [facility] Gastro[facility]ology Clinic [address]th [place] [address] Alexis Torres MD 420 [place], [place] [phone] Srinivas Stern PA-C [address] [place] [address] 06/05/2025 3:30 PM CDT Virtual Visit [facility] GI [address] 2nd [place] [phone] Kayode Ivey MD [address] [place] [address] Bandar Casas, [facility] 420 [facility] 812 [place] [address] documented as of this encounter Visit Diagnoses Not on filedocumented in this encounter Additional Health Concerns Infection Onset Date Last Indicated Resolved Time MRSA-Contact Isolation Comment: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, chest, and elbow 02/17/2016 02/17/2016 Rule Out C-difficile 09/03/2024 09/04/2024 025 12:45 PM GRAVITY PROSPECTOR Assessment Noted Time PHQ-9 Depression Total Score: 9 03/02/20 16 7:16 AM CDT documented as of this encounter Care Teams Channel Rougher Relationship Specialty Start Date End Date Jairo Vasquez MD PCP - General Family Medicine - Sports Medicine 12/29/15 Kylee Dailey MD [address] [place], [place] [address]B 2A [place] [address] Internal Medicine 04/01/17 Kayode Ivey MD [address] [place] [address] Gastroenterology 04/01/17 Nicolasa Perez APRN SQL REPORT ANALYST [address] [place] [address] [id number] [place] [address] Nurse Practitioner Nurse Practitioner 04/28/17 Srinivas Stern PA-C [address] [place] [address] Physician Agency Trainer Physician Agency Trainer 10/02/18 Srinivas Stern PA-C 909 [place] [address] Assigned Gastroenterology Provider 07/17/22 Bandar Casas RPH [address] [phone] Pharmacist Pharmacist 08/18/23 Bandar Casas RPH [address] [id number] Assigned MTM Pharmacist 08/27/23 Ayana Zhang PA-C 5200 [place] [address] Physician Agency Trainer Rheumatology 04/16/24 Srinivas Stern PA-C 909 [place] [address] Home Infusion Following Provider Gastroenterology 07/11/24 10/05/24 documented as of this encounter
--- OUTSIDE RECORDS SUMMARY | 2025-01-15 15:45 | XMS_ITS | Encounter Summary ---
Author Organization [facility] Address [address] [place] [address]. [place] [address] Care Team Providers Care Packing Machine Pilot Can Router Name Role Phone Jairo Vasquez MD Primary Care Provider Kylee Dailey MD Unavailable + Kayode Ivey MD Unavailable [phone] Nicolasa Perez APRN SUPERVISOR SAMPLE Unavaila ble Srinivas Stern-C Unavailable Srinivas Stern-C Unavailable Bandar Casas [facility] Unavailable Bandar Casas [facility] Unavailable Ayana Zhang-C Unavailable Srinivas Stern-C Unavailable [phone] Encounter Details Date Type Department Care Team (Late st Contact Info) Description 08/18/2023 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 Gastroenterology Clinic [address]th [place] [address] Alexis Torres MD 420 [place], [place] [phone] Srinivas Stern PA-C [address] [place] [address] 06/05/2025 3:30 PM CDT Virtual Visit [facility] GI [address]nd [place] [phone] Kayode Ivey MD [address] [place] [address] Bandar Casas, [facility] 420 [facility] 812 [place] [address] documented as of this encounter Visit Diagnoses Not on filedocumented in this encounter Additional Health Concerns Infection Onset Date Last Indicated Resolved Time MRSA-Contact Isolation Comment: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, chest, and elbow 02/17/2016 02/17/2016 Rule Out C-difficile 10/04/2023 10/05/2023 024 7:28 PM REAL ESTATE BROKER ASSOCIATE C-difficile 10/05/2023 10/05/2023 11/04/2023 11:3 9 PM REAL ESTATE BROKER ASSOCIATE Rule Out C-difficile 09/03/2024 09/04/2024 025 12:45 PM REAL ESTATE BROKER ASSOCIATE Assessment Noted Time PHQ-9 Depression Total Score: 9 03/02/20 16 7:16 AM CDT documented as of this encounter Care Teams Packing Machine Pilot Can Router Relationship Specialty Start Date End Date Jairo Vasquez MD PCP - General Family Medicine - Sports Medicine 12/29/15 Kylee Dailey MD [address] [place], [place] [address]B 2[address] [place] [address] Internal Medicine 04/01/17 Kayode Ivey MD [address] [place] [address] Gastroenterology 04/01/17 Nicolasa Perez APRN SUPERVISOR SAMPLE [address] [place] [id number] [address] Nurse Practitioner Nurse Practitioner 04/28/17 Srinivas Stern PA-C 909 [place] [address] Physician Admitting Counselor Physician Admitting Counselor 10/02/18 Srinivas Stern PA-C [address] [place] [address] Assigned Gastroenterology Provider 07/17/22 Bandar Casas RPH [address] [place] [address] [phone] Pharmacist Pharmacist 08/18/23 Bandar Casas RPH [address] [place] [address] [phone] Assigned MTM Pharmacist 08/27/23 Ayana Zhang PA-C [address] [place] [address] [id number] Physician Admitting Counselor Rheumatology 04/16/24 Srinivas Stern PA-C [address] [place] [address] Home Infusion Following Provider Gastroenterology 07/11/24 10/05/24 documented as of this encounter
--- OUTSIDE RECORDS SUMMARY | 2025-01-15 15:45 | XMS_ITS | Encounter Summary ---
Author Organization [facility] Address [address] [place] [address] Care Team Providers Care Hospital Secretary Name Role Phone Jairo Vasquez MD Primary Care Provider [phone] Kylee Dailey MD Unavailable + Kayode Ivey MD Unavailable [phone] Nicolasa Perez APRN SOCIAL MEDIA PROJECT MANAGER Unavaila ble Loyda Dickey RN Unavailable [phone] Srinivas Stern PA-C Unavailable [phone] Srinivas Stern PA-C Unavailable +[phone] Violet Ta [facility] Unavailable [phone] Sue Mckeon [facility] Unavailable [phone] Karen Trinh MD Unavailable +[phone] Violet Ta [facility] Unavailable [phone] Violet Ta [facility] Unavailable [phone] Srinivas Stern PA-C Unavailable [phone] Bandar Casas [facility] Unavailable [phone] Bandar Casas [facility] Unavailable Ayana Zhang PA-C Unavailable [phone] Srinivas Stern PA-C Unavailable [phone] Encounter Details Date Type Department Care Team (Latest Contact Info) Description 02/15/2019 External Order Results [facility] Transplant Clinic [address] [place] [address] UC (ulcerative colitis) (H) Social History Tobacco Use Types Packs/Day Years Used Date Smoking Tobacco: Never Smokeless Tobacco: Never Alcohol Use Standard Drinks/Week Comments Yes 13 (1 standard drink = 0.6 oz pu re alcohol) MONTHLY Sex and Gender Information Value Date Recorded Sex Assigned at Not on file 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 Gender Identity Not on file Sexual Orientation Not on file 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 Plan of Treatment Upcoming Encounters Date Type Department Care Team (Latest Contact Info) Description 02/13/2025 3:20 PM CDT Appointment [facility] Imaging [address] [facility] [address] [place] [address] Kayode Ivey MD 6 [place], [place] 336125 03/07/2025 3:00 PM CDT Ancillary Procedure [address] [place] [address] Srinivas Stern PA-C [address] [place] [address] [phone] 04/24/2025 2:40 PM CDT Virtual Visit [facility] Gastroenterology Clinic [address] 4th [place] [address] Alexis Torres MD 420 [place], [place] 501165 Srinivas Stern PA-C [address] [place] [address] 945925 06/05/2025 3:30 PM CDT Virtual Visit [facility] MTM [address] [facility] [address] 2nd [place] [address] Kayode Ivey MD 516 [facility] [place] [address] Bandar Casas, [facility] 420 [facility] 812 [place] [address] documented as of this encounter Procedures Procedure Name Priority Date/Time Associated Diagnosis Comments CBC WITH PLATELETS & DIFFERENTIAL Routine 02/15/2019 3:50 PM CDT UC (ulcerative colitis) (H) ERYTHROCYTE SEDIMENTATION RATE AUTO Routine 02/15/2019 3:50 PM CDT UC (ulcerative colitis) (H) CRP INFLAMMATION Routine 02/15/2019 3:50 PM CDT UC (ulcerative colitis) (H) documented in this encounter Results * Erythrocyte sedimentation rate auto (02/15/2019 3:50 PM CDT) ESR (External) 7 <15 mm/hr LABDE SCAN Blood specimen (specimen) 02/15/2019 3:50 PM CDT Narrative [facility] PFT - 02/16/2019 4:02 PM CDT Verified by Ariella Carl on 02/16/2019. us Kayode Ivey MD LAB - BLOOD ORDERABLES Ed ited Result - Final BREEZE PFT LABDE SCAN * CRP inflammation (02/15/2019 3:50 PM CDT) CRP Inflammation (External) 0.28 <0.50 mg/dL LABDE SCAN Blood specimen (specimen) 02/15/2019 3:50 PM CDT Narrative BREEZE PFT - 02/16/2019 4:02 PM CDT Verified by Ariella Carl on 02/16/2019. us Kayoedmarquise Ivey MD LAB - BLOOD ORDERABLES Ed ited Result - Final MARISSA PFT LABDE SCAN * (ABNORMAL) CBC with platelets differential (02/15/2019 3:50 PM CDT) WBC Count (External) 5.6 4.5 - 11.0 thou/cu mm LABDE SCAN RBC Count (External) 4.57 4.30 - 5.80 mil/cu mm LABDE SCAN Hemoglobin (External) 14.6 13.5 - 17.5 g/dL LABDE SCAN Hematocrit (External) 40.9 37.0 - 53.0 % LABDE SCAN MCV (External) 90 80 - 100 fL LABDE SCAN MCH (External) 31.9(L) 26.0 - 34.0 pg LABDE SCAN MCHC (External) 35.7 32.0 - 36.0 g/dL LABDE SCAN RDW (External) 13.6(L) 11.5 - 15.5 % LABDE SCAN Platelet Count (External) 183 140 - 440 thou/cu mm LABDE SCAN % Neutrophils (External) 36.4 % LABDE SCAN % Lymphocytes (External) 52.5 % LABDE SCAN % Monocytes (External) 8.4 % LABDE SCAN % Eosinophils (External) 2.3 % LABDE SCAN % Basophils (External) 0.4 % LABDE SCAN Absolute Neutrophils (External) 2.1 1.7 - 7.0 thou/cu mm LABDE SCAN Absolute Lymphocytes (External) 3.0(H) 0.9 - 2.9 thou/cu mm LABDE SCAN Absolute Monocytes (External) 0.5(H) <0.3 thou/cu mm LABDE SCAN Absolute Eosinophils (External) 0.1 <0.5 thou/cu mm LABDE SCAN Absolute Basophils (External) 0.0 <0.3 thou/cu mm LABDE SCAN Blood specimen (specimen) 02/15/2019 3:50 PM CDT Deja MARISSA PFT - 02/16/2019 4:02 PM CDT Verified by Ariella Carl on 02/16/2019. us Kayode Ivey MD LAB - BLOOD ORDERABLES Ed ited Result - Final BREEZE PFT LABDE SCAN documented in this encounter Visit Diagnoses Diagnosis UC (ulcerative colitis) (H) Ulcerative colitis, unspecified documented in this encounter Additional Health Concerns Infection Onset Date Last Indicated Resolved Time MRSA-Contact Isolation Comment: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, chest, and elbow 02/17/2016 02/17/2016 Rule Out C-difficile 10/04/2023 10/05/2023 024 7:28 PM INTERNET MARKETING SPECIALIST C-difficile 10/05/2023 10/05/2023 11/04/2023 11:3 9 PM INTERNET MARKETING SPECIALIST Rule Out C-difficile 09/03/2024 09/04/2024 025 12:45 PM INTERNET MARKETING SPECIALIST Assessment Noted Time PHQ-9 Depression Total Score: 9 03/02/20 16 7:16 AM CDT documented as of this encounter Care Teams Hospital Secretary Relationship Specialty Start Date End Date Jairo Vasquez MD PCP - General Family Medicine - Sports Medicine 12/29/15 Kylee Dailey MD [address] [place], [place] [address]B 2A [place] [address] Internal Medicine 04/01/17 Kayode Ivey MD [address] [place] [address] Gastroenterology 04/01/17 Nicolasa Perez APRN SOCIAL MEDIA PROJECT MANAGER [address] [place] [address] [address] Nurse Practitioner Nurse Practitioner 04/28/17 Loyda Dickey, RN Nurse Coordinator Neurology 05/26/17 02/26/19 Srinivas Stern PA-C [address] [place] [address] Physician Office Machine Punch Operator Physician Office Machine Punch Operator 10/02/18 Srinivas Stern PA-C [address] [place] [address] Assigned Heart and Vascular Provider 11/19/20 06/27/21 Violet Ta [facility] [address] [place] [address] Pharmacist Pharmacist 12/29/20 02/08/21 Sue Mckeon [facility] [address] [place] [address] Pharmacist Pharmacist Cosmetics Machine Operator 02/09/21 06/29/22 Karen Trinh MD [address] [place] [address] [id number] Assigned Infectious Disease Provider 02/08/21 07/30/22 Violet Ta [facility] [address] [place] [address] Assigned MTM Pharmacist 02/27/22 05/21/22 Violet Ta, [facility] [address] [place] [address] Assigned MTM Pharmacist 06/02/22 07/09/22 Srinivas Stern PA-C 909 [place], [place] [address] Assigned Gastroenterology Provider 07/17/22 Bandar Casas RPH 420 [facility] 812 [place] [address] Pharmacist Pharmacist 08/18/23 Bandar Casas RPH [address] [place] 292932 [place] [address] Assigned MTM Pharmacist 08/27/23 Ayana Zhang PA-C 5200 [place] [address] Physician Office Machine Punch Operator Rheumatology 04/16/24 Srinivas Stern PA-C 909 [place], [place] 8[address] Home Infusion Following Provider Gastroenterology 07/11/24 10/05/24 documented as of this encounter
--- OUTSIDE RECORDS SUMMARY | 2025-01-15 15:45 | XMS_ITS | Encounter Summary ---
Author Organization [facility] Address [address] [place] [address] Care Team Providers Care Sales Executive Name Role Phone Jairo Vasquez MD Primary Care Provider [phone] Kylee Dailey MD Unavailable + Kayode Ivey MD Unavailable [phone] Nicolasa Perez APRN FINAL INSPECTION SUPERVISOR Unavaila ble Srinivas Stern PA-C Unavailable Srinivas Stern PA-C Unavailable [phone] Bandar Casas [facility] Unavailable [phone] Bandar Casas [facility] Unavailable [phone] Ayana Zhang PA-C Unavailable [phone] Srinivas Stern PA-C Unavailable [phone] Encounter Details Date Type Department Care Team (Late st Contact Info) Description 12/08/2023 [facility] Gastroenterology Clinic [address] 4th [place] [address] Srinivas Stern PA-C 909 [place] [address] Social History Tobacco Use Types [...] on file 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 [address] [place] [address] Kayode Ivey MD [address] [place] [address] 03/07/2025 3:00 PM CDT Ancillary Procedure [address] [place] [address] Srinivas Stern PA-C [address] [place] [address] 04/24/2025 2:40 PM CDT Virtual Visit [facility] Gastroenterology Clinic [address]th [place] [address] Alexis Torres MD 420 [place], [place] [phone] Srinivas Stern PA-C [address] [place] [address] 06/05/2025 3:30 PM CDT Virtual Visit [facility] GI [address] [phone] Kayode Ivey MD [address] [place] [address] Bandar Casas, RPH 420 [facility] 812 [place] [address] documented as of this encounter Visit Diagnoses Not on filedocumented in this encounter Additional Health Concerns Infection Onset Date Last Indicated Resolved Time MRSA-Contact Isolation Comment: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, chest, and elbow 02/17/2016 02/17/2016 Rule Out C-difficile 09/03/2024 09/04/2024 025 12:45 PM BEEF PUSHER Assessment Noted Time PHQ-9 Depression Total Score: 9 03/02/20 16 7:16 AM CDT documented as of this encounter Care Teams Sales Executive Relationship Specialty Start Date End Date Jairo Vasquez MD PCP - General Family Medicine - Sports Medicine 12/29/15 Kylee Dailey MD 6 [facility] 2A [place] [address] Internal Medicine 04/01/17 Kayode Ivey MD 6 [place] [address] Gastroenterology 04/01/17 Nicolasa Perez APRN FINAL INSPECTION SUPERVISOR [address] [place] [id number] [address] Nurse Practitioner Nurse Practitioner 04/28/17 Srinivas Stren PA-C [address] [place] [address] Physician Nurse Staff Physician Nurse Staff 10/02/18 Srinivas Stern PA-C 909 [place] [address] Assigned Gastroenterology Provider 07/17/22 Bandar Casas RPH [address] [phone] Pharmacist Pharmacist 08/18/23 Bandar Casas RPH [address] [phone] Assigned MTM Pharmacist 08/27/23 Ayana Zhang PA-C 5200 [place] [address] Physician Nurse Staff Rheumatology 04/16/24 Srinivas Stern PA-C 909 [place] [address] Home Infusion Following Provider Gastroenterology 07/11/24 10/05/24 documented as of this encounter
--- OUTSIDE RECORDS SUMMARY | 2025-01-15 15:45 | XMS_ITS | Encounter Summary ---
Author Organization [facility] Address [address] [place] [address]. [place] [address] Care Team Providers Care Design Chief Name Role Phone Jairo Vasquez MD Primary Care Provider Kylee Dailey MD Unavailable + Kayode Ivey MD Unavailable [phone] Nicolasa Perez APRN HR CLERK Unavaila ble Srinivas Stern-C Unavailable Srinivas Stern-C Unavailable Bandar Casas [facility] Unavailable Bandar Cas[facility] Unavailable [phone] Ayana Zhang-C Unavailable PitSrinivas mcintosh-C Unavailable [phone] Encounter Details Date Type Department Care Team (Late st Contact Info) Description 06/01/2023 [facility] Gastroenterology Clinic [address] 4th [place] [address] Anamika Ricoview Social History Tobacco Use Types Packs/Day Years [...] on file 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 No / Unsure 05/04/2023 3:58 PM CDT documented as of this encounter Plan of Treatment Upcoming Encounters Date Type Department Care Team (Latest Contact Info) Description 02/13/2025 3:20 PM CDT Appointment [facility] Imaging [address] [facility] [address] [place] [address] Kayode Ivey MD 516 [place] [address] 03/07/2025 3:00 PM CDT Ancillary Procedure [facility] [address] [facility] [address] [place] [address] Srinivas Stern PA-C [address] [place] [address] 04/24/2025 2:40 PM CDT Virtual Visit [facility] Gastroenterology Clinic [address]th [place] [address] Alexis Torres MD 420 [place], [place] [phone] Srinivas Stern PA-C [address] [place] [address] 06/05/2025 3:30 PM CDT Virtual Visit [facility] GI [address] [place] [phone] Kayode Ivey MD 516 [place] [address] Bandar Casas, [facility] 420 [facility] 812 [place] [address] documented as of this encounter Visit Diagnoses Not on filedocumented in this encounter Additional Health Concerns Infection Onset Date Last Indicated Resolved Time MRSA-Contact Isolation Comment: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, chest, and elbow 02/17/2016 02/17/2016 Rule Out C-difficile 10/04/2023 10/05/2023 024 7:28 PM GEAR NICKER C-difficile 10/05/2023 10/05/2023 11/04/2023 11:3 9 PM GEAR NICKER Rule Out C-difficile 09/03/2024 09/04/2024 025 12:45 PM GEAR NICKER Assessment Noted Time PHQ-9 Depression Total Score: 9 03/02/20 16 7:16 AM CDT documented as of this encounter Care Teams Design Chief Relationship Specialty Start Date End Date Jairo Vasquez MD PCP - General Family Medicine - Sports Medicine 12/29/15 Kylee Dailey MD [address] [place] [address] [address] [place] [address] Internal Medicine 04/01/17 Kayode Ivey MD [address] [place] [address] Gastroenterology 04/01/17 Nicolasa Perez APRN HR CLERK [address] [place] [address] [id number] [place] [address] Nurse Practitioner Nurse Practitioner 04/28/17 Srinivas Stern PA-C 909 [place], [place] 724[address] Physician Clay Pigeon Loader Physician Clay Pigeon Loader 10/02/18 Srinivas Stern PA-C 909 [place], [place] [address] Assigned Gastroenterology Provider 07/17/22 Bandar Casas RPH [address] [place] 559622 [place] [address] Pharmacist Pharmacist 08/18/23 Bandar Casas RPH [address] [id number] Assigned MTM Pharmacist 08/27/23 Ayana Zhang PA-C 5200 [place] [address] Physician Clay Pigeon Loader Rheumatology 04/16/24 Srinivas Stern PA-C 909 [place], [place] 781835 Home Infusion Following Provider Gastroenterology 07/11/24 10/05/24 documented as of this encounter
--- OUTSIDE RECORDS SUMMARY | 2025-01-15 15:45 | XMS_ITS | Encounter Summary ---
Author Organization [place] Address [address] [place] [address] 24068 Care Team Providers Care Communications Intern Name Role Phone Jairo Vasquez MD Primary Care Provider Kylee Dailey MD Unavailable + Kayode Ivey MD Unavailable [phone] Nicolasa Perez APRN DREDGE MECHANIC Unavaila ble Srinivas Stern PA-C Unavailable Srinivas Stern PA-C Unavailable Bandar Casas [facility] Unavailable [phone] Bandar Casas [facility] Unavailable Ayana Zhang PA-C Unavailable Srinivas Stern PA-C Unavailable Encounter Details Date Type Department Care Team (Late st Contact Info) Description 10/06/2023 [facility] [address] [place] [address] Srinivas Stern PA-C [address]09 [place] [address] Social History Tobacco Use Types [...] on file Legal Sex 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 AND SERVICE CLERKS SUPERVISOR Gender Identity Not on file Sexual Orientation Not on file 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 Plan of Treatment Upcoming Encounters Date Type Department Care Team (Latest Contact Info) Description 02/13/2025 3:20 PM CDT Appointment [facility] [address] [facility] [address] [place] [address] Kayode Ivey MD [address] [place] [address] 03/07/2025 3:00 PM CDT Ancillary Procedure [address] [place] [address] Srinivas Stern PA-C [address] [place] [address] 04/24/2025 2:40 PM CDT Virtual Visit [facility] [address] [place] [address] Alexis Torres MD 420 [place], [place] [phone] Srinivas Stern PA-C [address] [place] [address] 06/05/2025 3:30 PM CDT Virtual Visit [facility] GI [address] [phone] Kayode Ivey MD [address] [place] [address] 16[address] Bandar Casas, [facility] 420 [facility] 812 [place] [address] documented as of this encounter Visit Diagnoses Not on filedocumented in this encounter Additional Health Concerns Infection Onset Date Last Indicated Resolved Time MRSA-Contact Isolation Comment: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, chest, and elbow 02/17/2016 02/17/2016 C-difficile 10/05/2023 10/05/2023 11/04/2023 11:3 9 PM CONTACT AND SERVICE CLERKS SUPERVISOR Rule Out C-difficile 09/03/2024 09/04/2024 025 12:45 PM CONTACT AND SERVICE CLERKS SUPERVISOR Assessment Noted Time PHQ-9 Depression Total Score: 9 03/02/20 16 7:16 AM CDT documented as of this encounter Care Teams Communications Intern Relationship Specialty Start Date End Date Jairo Vasquez MD PCP - General Family Medicine - Sports Medicine 12/29/15 Kylee Dailey MD [address] [place] [address] 2[address] [place], [place] 605945 Internal Medicine 04/01/17 Kayode Ivey MD [address] [place] [address] 833675 Gastroenterology 04/01/17 Nicolasa Peerz APRN DREDGE MECHANIC [address] [place] [id number], [place] [address] Nurse Practitioner Nurse Practitioner 04/28/17 Srinivas Stern PA-C [address] [place] [address] 776685 Physician Engineer Automated Equipment Physician Engineer Automated Equipment 10/02/18 Srinivas Stern PA-C [address] [place] [address] [phone] Assigned Gastroenterology Provider 07/17/22 Bandar Casas RPH [address] [phone] Pharmacist Pharmacist 08/18/23 Bandar Casas [facility] [address] [address] Assigned MTM Pharmacist 08/27/23 Ayana Zhang PA-C [address] [place] [address] 36545 Physician Engineer Automated Equipment Rheumatology 04/16/24 Srinivas Stern PA-C [address] [place] [address] 757845 Home Infusion Following Provider Gastroenterology 07/11/24 10/05/24 documented as of this encounter
--- OUTSIDE RECORDS SUMMARY | 2025-01-15 15:45 | XMS_ITS | Encounter Summary ---
Author Organization [place] Address [address] [place] [address]89 Care Team Providers Care Cassandra Developer Name Role Phone Jairo Vasquez MD Primary Care Provider [phone] Kylee Dailey MD Unavailable + Kayode Ivey MD Unavailable [phone] Nicolasa Perez APRN WATER TREATMENT TECHNICIAN Unavaila ble Srinivas Stern PA-C Unavailable +[phone] Srinivas Stern PA-C Unavailable +[phone] Violet Ta [facility] Unavailable +[phone] Sue Mckeon [facility] Unavailable [phone] Karen Trinh MD Unavailable [phone] Violet Ta [facility] Unavailable [phone] Violet Ta [facility] Unavailable +[phone] Srinivas Stern PA-C Unavailable +[phone] Bandar Casas [facility] Unavailable [phone] Bandar Casas [facility] Unavailable +[phone] Ayana Zhnag PA-C Unavailable [phone] Srinivas Stern PA-C Unavailable [phone] Encounter Details Date Type Department Care Team (Late st Contact Info) Description 01/22/[address] [facility]ology Clinic [address] [phone] Kayode Ivey MD [address] [place] [address] 805165 Social History Tobacco Use Types Packs/Day Years Used Date Smoking Tobacco: Never Smokeless Tobacco: Never Alcohol Use Standard Drinks/Week Comments Yes 13 (1 standard drink = 0.6 oz pu re alcohol) MONTHLY PHQ-2 Answer Date Recorded PHQ-2 Score 2 08/20/2019 Sex and Gender Information Value Date Recorded Sex Assigned at Not on file Legal Sex 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 HOME HEALTH CLINICAL SUPERVISOR Gender Identity Not on file Sexual [...] Appointment [facility] Imaging [address] [facility] [address] [place] [phone] Kayode Ivey MD [address] [place] [address] 207795 03/07/2025 3:00 PM CDT Ancillary Procedure [address] [place] [address] Srinivas Stern PA-C [address] [place] [address] 424305 04/24/2025 2:40 PM CDT Virtual Visit [facility] Clinic [address] [phone] Alexis Torres MD 420 [place], [place] 815455 Srinivas Stern PA-C 909 [place], [place] [phone] 06/05/2025 3:30 PM CDT Virtual Visit [facility] 909 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, chest, and elbow 02/17/2016 02/17/2016 Rule Out C-difficile 10/04/2023 10/05/2023 024 7:28 PM HOME HEALTH CLINICAL SUPERVISOR C-difficile 10/05/2023 10/05/2023 11/04/2023 11:3 9 PM HOME HEALTH CLINICAL SUPERVISOR Rule Out C-difficile 09/03/2024 09/04/2024 025 12:45 PM HOME HEALTH CLINICAL SUPERVISOR Assessment Noted Time PHQ-9 Depression Total Score: 9 03/02/20 16 7:16 AM CDT documented as of this encounter Care Teams Cassandra Developer Relationship Specialty Start Date End Date Jairo Vasquez MD PCP - General Family Medicine - Sports Medicine 12/29/15 Kylee Dailey MD 6 [facility] 2A [place], [place] 197645 Internal Medicine 04/01/17 Kayode Ivey MD [address] [place] [address] [phone] Gastroenterology 04/01/17 Nicolasa Perez APRN WATER TREATMENT TECHNICIAN [address] [place] [address] [id number] [place], [place] [phone] Nurse Practitioner Nurse Practitioner 04/28/17 Srinivas Stern PA-C [address] [place] [address] [phone] Physician Wood Milling Machine Operator Physician Wood Milling Machine Operator 10/02/18 Srinivas Stern PA-C [address] [place] [address] [phone] Assigned Heart and Vascular Provider 11/19/20 06/27/21 Violet Ta [facility] [address] [place] [address] 72511 Pharmacist Pharmacist 12/29/20 02/08/21 Sue Mckeon [facility] [address] [place] [address] 956325 Pharmacist Pharmacist Flight Communications Specialist 02/09/21 06/29/22 Karen Trinh MD [address] [place] [address] 407915 Assigned Infectious Disease Provider 02/08/21 07/30/22 Violet Ta [facility] [address] [place] [address] Assigned MTM Pharmacist 02/27/22 05/21/22 Violet Ta [facility] [address] [place] [address] Assigned MTM Pharmacist 06/02/22 07/09/22 Srinivas Stern PA-C 909 [place] [address] Assigned Gastroenterology Provider 07/17/22 Bandar Casas RPH [address] [address] Pharmacist Pharmacist 08/18/23 Bandar Casas RPH [address] [address] Assigned MTM Pharmacist 08/27/23 Ayana Zhang PA-C 5200 [place] [address] Physician Wood Milling Machine Operator Rheumatology 04/16/24 Srinivas Stern PA-C 909 [place], [place] [phone] Home Infusion Following Provider Gastroenterology 07/11/24 10/05/24 documented as of this encounter
--- OUTSIDE RECORDS SUMMARY | 2025-01-15 15:45 | XMS_ITS | Encounter Summary ---
Author Organization [place] Address [address] [place] [address]. [place] [address] Care Team Providers Care Wellhead Pumper Name Role Phone Jairo Vasquez MD Primary Care Provider Kylee Dailey MD Unavailable + Kayode Ivey MD Unavailable [phone] Nicolasa Perez APRN E COMMERCE MERCHANDISING COORDINATOR Unavaila ble Srinivas Stern-C Unavailable Srinivas Stern-C Unavailable Bandar Casas [facility] Unavailable Bandar Casas [facility] Unavailable Ayana Zhang-C Unavailable PitSrinivas mcintosh-C Unavailable [phone] Encounter Details Date Type Department Care Team (Late st Contact Info) Description 10/10/2023 [facility] [address] 4th [place] [address] Silvana Rodríguez Social History Tobacco [...] on file Legal Sex 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 CYLINDER CHECKER Gender Identity Not on file Sexual Orientation Not on file 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 Plan of Treatment Upcoming Encounters Date Type Department Care Team (Latest Contact Info) Description 02/13/2025 3:20 PM CDT Appointment [facility] Imaging [address] [facility] [address] [place] [phone] Kayode Ivey MD [address] [place] [address] 03/07/2025 3:00 PM CDT Ancillary Procedure [address] [place] [address] Srinivas Stern PA-C [address] [place] [address] [phone] 04/24/2025 2:40 PM CDT Virtual Visit [facility] Clinic [address] [place] [address] Alexis Torres MD 420 [place], [place] 934425 Srinivas Stern PA-C [address] [place] [address] [phone] 06/05/2025 3:30 PM CDT Virtual Visit [facility] GI [address] [place] [address] Kayode Ivey MD [address] [place] [address] 171295 Bandar Casas RPH 420 [facility] 812 [place] [address] documented as of this encounter Visit Diagnoses Not on filedocumented in this encounter Additional Health Concerns Infection Onset Date Last Indicated Resolved Time MRSA-Contact Isolation Comment: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, chest, and elbow 02/17/2016 02/17/2016 C-difficile 10/05/2023 10/05/2023 11/04/2023 11:3 9 PM CYLINDER CHECKER Rule Out C-difficile 09/03/2024 09/04/2024 025 12:45 PM CYLINDER CHECKER Assessment Noted Time PHQ-9 Depression Total Score: 9 03/02/20 16 7:16 AM CDT documented as of this encounter Care Teams Wellhead Pumper Relationship Specialty Start Date End Date Jairo Vasquez MD PCP - General Family Medicine - Sports Medicine 12/29/15 Kylee Dailey MD [address] [place] [address] Internal Medicine 04/01/17 Kayode Ivey MD [address] [place] [address] Gastroenterology 04/01/17 Nicolasa Perez APRN E COMMERCE MERCHANDISING COORDINATOR [address] [place], [place] [address] [address] Nurse Practitioner Nurse Practitioner 04/28/17 Srinivas Stern PA-C [address] [place] [address] Physician Anthropologist Physician Anthropologist 10/02/18 Srinivas Stern PA-C [address] [place] [address] [place] [address] Assigned Gastroenterology Provider 07/17/22 Bandar Casas RPH [address] [phone] Pharmacist Pharmacist 08/18/23 Bandar Casas RPH [address] 856215 Assigned MTM Pharmacist 08/27/23 Ayana Zhang PA-C 5200 [place] [address] Physician Anthropologist Rheumatology 04/16/24 Srinivas Stern PA-C 909 [place] [address] Home Infusion Following Provider Gastroenterology 07/11/24 10/05/24 documented as of this encounter
--- OUTSIDE RECORDS SUMMARY | 2025-01-15 15:45 | XMS_ITS | Encounter Summary ---
Author Organization [facility] Address [address] [place] [address] Care Team Providers Care Center Hole Reamer Name Role Phone Jairo Vasquez MD Primary Care Provider [phone] Kylee Dailey MD Unavailable + Kayode Ivey MD Unavailable [phone] Nicolasa Perez APRN WHEEL AND AXLE INSPECTOR Unavaila ble Loyda Dickey RN Unavailable [phone] Srinivas Stern PA-C Unavailable [phone] Srinivas Stern PA-C Unavailable +[phone] Violet Ta [facility] Unavailable +[phone] Sue Mckeon [facility] Unavailable [phone] Karen Trinh MD Unavailable +[phone] Violet Ta [facility] Unavailable +[phone] Violet Ta [facility] Unavailable +[phone] Srinivas Stern PA-C Unavailable +[phone] Bandar Casas [facility] Unavailable [phone] Bandar Casas [facility] Unavailable +[phone] Ayana Zhang PA-C Unavailable [phone] Srinivas Stern PA-C Unavailable Encounter Details Date Type Department Care Team (Late st Contact Info) Description 03/10/2016 MyC Medical Advice [facility]enterology and IBD Clinic [address] [place] [address] Kayode Ivey MD 6 [place] [address] Social History Tobacco Use Types Packs/Day Years Used Date Smoking Tobacco: Never Alcohol Use Standard Drinks/Week Comments No 0 (1 standard drink = 0.6 oz pur e alcohol) not currently Sex and Gender Information Value Date Recorded Sex Assigned at Not on file Legal Sex 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 BUCKLE FRAME SHAPER Gender Identity Not on file Sexual Orientation Not on file 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 Plan of Treatment Upcoming Encounters Date Type Department Care Team (Latest Contact Info) Description 02/13/2025 3:20 PM CDT Appointment [facility] [address] [facility] [address] [place] [address] Kayode Ivey MD 6 [place] [address] 03/07/2025 3:00 PM CDT Ancillary Procedure [address] [place] [address] Srinivas Stern PA-C [address] [place] [address] [phone] 04/24/2025 2:40 PM CDT Virtual Visit [facility] Gastroenterology Clinic [address] [address] Alexis Torres MD 420 [place] [address] Srinivas Stern PA-C 909 [place], [place] 627825 06/05/2025 3:30 PM CDT Virtual Visit [facility] MTM 909 [facility] 2nd [place] [phone] Kayode Ivey MD 516 [place] [address] Bandar Casas, [facility] 420 [facility] 812 [place], [place] 602595 documented as of this encounter Visit Diagnoses Not on filedocumented in this encounter Additional Health Concerns Infection Onset Date Last Indicated Resolved Time MRSA-Contact Isolation Comment: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, chest, and elbow 02/17/2016 02/17/2016 Rule Out C-difficile 10/04/2023 10/05/2023 024 7:28 PM BUCKLE FRAME SHAPER C-difficile 10/05/2023 10/05/2023 11/04/2023 11:3 9 PM BUCKLE FRAME SHAPER Rule Out C-difficile 09/03/2024 09/04/2024 025 12:45 PM BUCKLE FRAME SHAPER Assessment Noted Time PHQ-9 Depression Total Score: 9 03/02/20 16 7:16 AM CDT documented as of this encounter Care Teams Center Hole Reamer Relationship Specialty Start Date End Date Jairo Vasquez MD PCP - General Family Medicine - Sports Medicine 12/29/15 Kylee Dailey MD [address] [place] [address] 2A [place] [address] Internal Medicine 04/01/17 Kayode Ivey MD [address] [place] [address] Gastroenterology 04/01/17 Nicolasa Perez APRN WHEEL AND AXLE INSPECTOR [address] [place] [address] [id number] [place], [place] 794315 Nurse Practitioner Nurse Practitioner 04/28/17 Loyda Dickey RN Nurse Coordinator Neurology 05/26/17 02/26/19 Srinivas Stern PA-C [address] [place] [address] [phone] Physician Looper Operator Physician Looper Operator 10/02/18 Srinivas Stern PA-C [address] [place] [address] 296855 Assigned Heart and Vascular Provider 11/19/20 06/27/21 Violet Ta [facility] [address] [place] [address] 32771 Pharmacist Pharmacist 12/29/20 02/08/21 Sue Mckeon [facility] [address] [place] [address] 426505 Pharmacist Pharmacist Technical Director 02/09/21 06/29/22 Karen Trinh MD [address] [place] [address] [phone] Assigned Infectious Disease Provider 02/08/21 07/30/22 Violet Ta [facility] [address] [place] [address] [phone] Assigned MTM Pharmacist 02/27/22 05/21/22 Violet Ta [facility] [address] [place] [address] [address] [place] [address] Assigned MTM Pharmacist 06/02/22 07/09/22 Srniivas Stern PA-C 909 [place] [address] Assigned Gastroenterology Provider 07/17/22 Bandar Casas RPH [address] [address] Pharmacist Pharmacist 08/18/23 Bandar Casas RPH [address] [place] [address] Assigned MTM Pharmacist 08/27/23 Ayana Zhang PA-C [address] [place] [address] Physician Looper Operator Rheumatology 04/16/24 Srinivas Stern PA-C [address] [place] [address] Home Infusion Following Provider Gastroenterology 07/11/24 10/05/24 documented as of this encounter
--- OUTSIDE RECORDS SUMMARY | 2025-01-15 15:46 | XMS_ITS | Encounter Summary ---
Author Organization [place] Address [address] [place] [address] Care Team Providers Care Associate Director Financial Aid Name Role Phone Jairo Vasquez MD Primary Care Provider [phone] Kylee Dailey MD Unavailable + Kayode Ivey MD Unavailable [phone] Nicolasa Perez APRN LADLE POURER Unavaila ble Loyda Dickey RN Unavailable [phone] Srinivas Stern PA-C Unavailable [phone] Srinivas Stern PA-C Unavailable +[phone] Violet Ta [facility] Unavailable +[phone] uSe Mckeon [facility] Unavailable +[phone] Karen Trinh MD Unavailable +[phone] Violet Ta [facility] Unavailable +[phone] Violet Ta [facility] Unavailable +[phone] Srinivas Stern PA-C Unavailable +[phone] Bandar Casas [facility] Unavailable [phone] Bandar Casas [facility] Unavailable +[phone] Ayana Zhang PA-C Unavailable [phone] Sriinvas Stern PA-C Unavailable Encounter Details Date Type Department Care Team (Late st Contact Info) Description 01/22/2019 MyC Medical Advice [facility]enterology and IBD Clinic [address] [place] [address] Srinivas Stern PA-C [address] [place] [address] [phone] Social History Tobacco Use Types Packs/Day Years Used Date Smoking Tobacco: Never Smokeless Tobacco: Never Alcohol Use Standard Drinks/Week Comments Yes 13 (1 standard drink = 0.6 oz pu re alcohol) MONTHLY Sex and Gender Information Value Date Recorded Sex Assigned at Not on file Legal Sex 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 WARDROBE COORDINATOR Gender Identity Not on file Sexual Orientation Not on file 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 Plan of Treatment Upcoming Encounters Date Type Department Care Team (Latest Contact Info) Description 02/13/2025 3:20 PM CDT Appointment [facility] Imaging [address] [facility] [address] [place] [address] Kayode Ivey MD 516 [place] [address] 03/07/2025 3:00 PM CDT Ancillary Procedure [address] [place] [address] Srinivas Stern PA-C [address] [place] [address] 817395 04/24/2025 2:40 PM CDT Virtual Visit [facility] [address] [address] Alexis Torres MD 420 [place] [address] Srinivas Stern PA-C 909 [place], [place] [phone] 06/05/2025 3:30 PM CDT Virtual Visit [facility] 909 [facility] 2nd [place] [phone] Kayode Ivey MD 516 [place] [address] Bandar Casas, [facility] 420 [facility] 812 [place] [address] documented as of this encounter Visit Diagnoses Not on filedocumented in this encounter Additional Health Concerns Infection Onset Date Last Indicated Resolved Time MRSA-Contact Isolation Comment: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, chest, and elbow 02/17/2016 02/17/2016 Rule Out C-difficile 10/04/2023 10/05/2023 024 7:28 PM WARDROBE COORDINATOR C-difficile 10/05/2023 10/05/2023 11/04/2023 11:3 9 PM WARDROBE COORDINATOR Rule Out C-difficile 09/03/2024 09/04/2024 025 12:45 PM WARDROBE COORDINATOR Assessment Noted Time PHQ-9 Depression Total Score: 9 03/02/20 16 7:16 AM CDT documented as of this encounter Care Teams Associate Director Financial Aid Relationship Specialty Start Date End Date Jairo Vasquez MD PCP - General Family Medicine - Sports Medicine 12/29/15 Kylee Dailey MD [address] [place] [address] 2A [place], [place] [phone] Internal Medicine 04/01/17 Kayode Ivey MD [address] [place] [address] Gastroenterology 04/01/17 Nicolasa Perez APRN LADLE POURER [address] [place] [address] [id number] [place], [place] 065645 Nurse Practitioner Nurse Practitioner 04/28/17 Loyda Dickey RN Nurse Coordinator Neurology 05/26/17 02/26/19 Srinivas Stern PA-C [address] [place] [address] Physician Mri Tech Physician Mri Tech 10/02/18 Srinivas Stern PA-C [address] [place] [address] Assigned Heart and Vascular Provider 11/19/20 06/27/21 Violet Ta [facility] [address] [place] [address] Pharmacist Pharmacist 12/29/20 02/08/21 Sue Mckeon [facility] [address] [place] [address] 287855 Pharmacist Pharmacist Trouble Dispatcher 02/09/21 06/29/22 Karen Trinh MD [address] [place] [address] [phone] Assigned Infectious Disease Provider 02/08/21 07/30/22 Violet Ta [facility] [address] [place] [address] 96 [place], [place] [phone] Assigned MTM Pharmacist 02/27/22 05/21/22 Violet Ta [facility] 480 [facility] [address] [place] [address] Assigned MTM Pharmacist 06/02/22 07/09/22 Srinivas Stern PA-C [address] [place] [address] Assigned Gastroenterology Provider 07/17/22 Bandar Casas RPH 420 [facility] 812 [place] [address] Pharmacist Pharmacist 08/18/23 Bandar Casas RP [address] [address] Assigned MTM Pharmacist 08/27/23 Ayana Zhang PA-C [address] [place] [address] Physician Mri Tech Rheumatology 04/16/24 Srinivas Stern PA-C 909 [place] [address] Home Infusion Following Provider Gastroenterology 07/11/24 10/05/24 documented as of this encounter
--- OUTSIDE RECORDS SUMMARY | 2025-01-15 15:46 | XMS_ITS | Encounter Summary ---
Author Organization [facility] Address [address] [place] [address] 28[address] Care Team Providers Care Ssis Developer Name Role Phone Jairo Vasquez MD Primary Care Provider [phone] Kylee Dailey MD Unavailable + Kayode Ivey MD Unavailable +[phone] Nicolasa Perez APRN BULK PLANT AGENT Unavaila ble Loyda Dickey RN Unavailable +[phone] Srinivas Stern PA-C Unavailable +[phone] Srinivas Stern PA-C Unavailable +[phone] Violet Ta [facility] Unavailable +[phone] Sue Mckeon [facility] Unavailable [phone] Karen Trinh MD Unavailable +[phone] Violet Ta [facility] Unavailable +[phone] Violet Ta [facility] Unavailable +[phone] Srinivas Stern PA-C Unavailable +[phone] Bandar Casas [facility] Unavailable +[phone] Bandar Casas [facility] Unavailable Ayana Zhang PA-C Unavailable +[phone] Srinivas Stern PA-C Unavailable [phone] Encounter Details Date Type Department Care Team (Late st Contact Info) Description 03/27/2018 MyC Medical Advice [facility] [address] [place] [address] Blanca Menezes, RN Social History Tobacco Use Types Packs/Day Years Used Date Smoking Tobacco: Never Smokeless Tobacco: Never Alcohol Use Standard Drinks/Week Comments Yes 13 (1 standard drink = 0.6 oz pu re alcohol) MONTHLY Sex and Gender Information Value Date Recorded Sex Assigned at Not on file Legal Sex 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 LINING CASER Gender Identity Not on file Sexual Orientation Not on file 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 Plan of Treatment Upcoming Encounters Date Type Department Care Team (Latest Contact Info) Description 02/13/2025 3:20 PM CDT Appointment [facility] [address] [facility] [address] [place] [phone] Kayode Ivey MD 516 [place] [address] 03/07/2025 3:00 PM CDT Ancillary Procedure [address] [place] [address] Srinivas Stern PA-C [address] [place] [address] 04/24/2025 2:40 PM CDT Virtual Visit [facility] Gastroenterology Clinic [address] [address] Alexis Torres MD 420 [place], [place] [phone] Srinivas Stern PA-C [address] [place] [address] 06/05/2025 3:30 PM CDT Virtual Visit [facility] 909 [facility] [address] 2nd [place] [address] Kayode Ivey MD 516 [place], [place] 758505 Bandar Casas, [facility] 420 [facility] 812 [place], [place] 456635 documented as of this encounter Visit Diagnoses Not on filedocumented in this encounter Additional Health Concerns Infection Onset Date Last Indicated Resolved Time MRSA-Contact Isolation Comment: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, chest, and elbow 02/17/2016 02/17/2016 Rule Out C-difficile 10/04/2023 10/05/2023 024 7:28 PM LINING CASER C-difficile 10/05/2023 10/05/2023 11/04/2023 11:3 9 PM LINING CASER Rule Out C-difficile 09/03/2024 09/04/2024 025 12:45 PM LINING CASER Assessment Noted Time PHQ-9 Depression Total Score: 9 03/02/20 16 7:16 AM CDT documented as of this encounter Care Teams Ssis Developer Relationship Specialty Start Date End Date Jairo Vasquez MD PCP - General Family Medicine - Sports Medicine 12/29/15 Kylee Dailey MD [address] [place] [address] [address] [place], [place] 9[address] Internal Medicine 04/01/17 Kayode Ivey MD [address] [place] [address] [phone] Gastroenterology 04/01/17 Nicolasa Perez APRN BULK PLANT AGENT [address] [place] [address] [id number] [place] [address] Nurse Practitioner Nurse Practitioner 04/28/17 Loyda Dickey, RN Nurse Coordinator Neurology 05/26/17 02/26/19 Srinivas Stern PA-C [address] [place] [address] Physician Electric Range Servicer Physician Electric Range Servicer 10/02/18 Srinivas Stern PA-C [address] [place] [address] Assigned Heart and Vascular Provider 11/19/20 06/27/21 [facility] [address] [place] [address] Pharmacist Pharmacist 12/29/20 02/08/21 Sue Mckeon [facility] [address] [place] [address] Pharmacist Pharmacist Poultry Farm Manager 02/09/21 06/29/22 Karen Trinh MD [address] [place] [address] Assigned Infectious Disease Provider 02/08/21 07/30/22 Violet Ta, [facility] [address] [place] [address] [address] [place] [address] Assigned MTM Pharmacist 02/27/22 05/21/22 Violet Ta [facility] [address] [facility] [address] [place] [address] Assigned MTM Pharmacist 06/02/22 07/09/22 Srinivas Stern PA-C 909 [place] [address] Assigned Gastroenterology Provider 07/17/22 Bandar Casas [facility] [address] [phone] Pharmacist Pharmacist 08/18/23 Bandar Casas [facility] [address] [place] [address] Assigned MTM Pharmacist 08/27/23 Ayana Zhang PA-C 5200 [place] [address] Physician Electric Range Servicer Rheumatology 04/16/24 Srinivas Stern PA-C 909 [place] [address] Home Infusion Following Provider Gastroenterology 07/11/24 10/05/24 documented as of this encounter
--- OUTSIDE RECORDS SUMMARY | 2025-01-15 15:46 | XMS_ITS | Encounter Summary ---
Author Organization [facility] Address [address] [place] [address]. [place] [address] Care Team Providers Care Auto Body Service Mechanic Name Role Phone Jairo Vasquez MD Primary Care Provider Kylee Dailey MD Unavailable + Kayode Ivey MD Unavailable [phone] Nicolasa Perez APRN CLINICAL RESEARCH DIRECTOR Unavaila ble Srinivas Stern-C Unavailable [facility] Un[facility] Bandar Casas [facility] Unavailable Bandar Casas [facility] Unavailable Ayana Zhang-C Unavailable Srinivas Stern-C Unavailable Encounter Details Date Type Department Care Team (Late st Contact Info) Description 06/01/2023 [facility] Medical Advice 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 Gastroenterology Clinic [address] [place] [address] Alexis Torres MD 420 [place], [place] 6[address]625 Srinivas Stern PA-C [address] [place] [address] [phone] 06/05/2025 3:30 PM CDT Virtual Visit 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, chest, and elbow 02/17/2016 02/17/2016 Rule Out C-difficile 10/04/2023 10/05/2023 024 7:28 PM DIRECTOR OF GOVERNMENT SALES C-difficile 10/05/2023 10/05/2023 11/04/2023 11:3 9 PM DIRECTOR OF GOVERNMENT SALES Rule Out C-difficile 09/03/2024 09/04/2024 025 12:45 PM DIRECTOR OF GOVERNMENT SALES Assessment Noted Time PHQ-9 Depression Total Score: 9 03/02/20 16 7:16 AM CDT documented as of this encounter Care Teams Auto Body Service Mechanic Relationship Specialty Start Date End Date Jairo Vasquez MD PCP - General Family Medicine - Sports Medicine 12/29/15 Kylee Dailey MD [address] [place], [place] [address]B 2[address] [place] [address] Internal Medicine 04/01/17 Kayode Ivey MD 6 [place] [address] Gastroenterology 04/01/17 Nicolasa Perez APRN CLINICAL RESEARCH DIRECTOR [address] [place] [address] [id number] [place] [address] Nurse Practitioner Nurse Practitioner 04/28/17 Srinivas Stern PA-C 909 [place], [place] 7300[address] Physician Barrel Marker Physician Barrel Marker 10/02/18 Srinivas Stern PA-C 909 [place], [place] 532745 Assigned Gastroenterology Provider 07/17/22 Bandar Casas [facility] [address] [address] Pharmacist Pharmacist 08/18/23 Bandar Casas [facility] [address] [address] Assigned MTM Pharmacist 08/27/23 Ayana Zhang PA-C 5200 [place], [place] [phone] Physician Barrel Marker Rheumatology 04/16/24 Srinivas Stern PA-C 9 [place], [place] 312[address] Home Infusion Following Provider Gastroenterology 07/11/24 10/05/24 documented as of this encounter
--- OUTSIDE RECORDS SUMMARY | 2025-01-15 15:46 | XMS_ITS | Encounter Summary ---
Author Organization [facility] Address [address] [place] [address] Care Team Providers Care Minute Clerk For Basic Traffic Name Role Phone Jairo Vasquez MD Primary Care Provider [phone] Kylee Dailey MD Unavailable + Kayode Ivey MD Unavailable [phone] Nicolasa Perez APRN METAL CASKET MAKER Unavaila ble Loyda Dickey RN Unavailable [phone] Srinivas Stern PA-C Unavailable [phone] Srinivas Stern PA-C Unavailable +[phone] Violet Ta [facility] Unavailable +[phone] Sue Mckeon [facility] Unavailable [phone] Karen Trinh MD Unavailable +[phone] Violet Ta [facility] Unavailable +[phone] Violet Ta [facility] Unavailable +[phone] Srinivas Stern PA-C Unavailable +[phone] Bandar Casas [facility] Unavailable [phone] Bandar Casas [facility] Unavailable Ayana Zhang PA-C Unavailable [phone] Srinivas Stern PA-C Unavailable Encounter Details Date Type Department Care Team (Late st Contact Info) Description 06/28/2016 MyC Medical Advice [facility] Gastroenterology [facility] IBD Clinic [address] [place] [address] Kayode Ivey MD 6 [place] [address] Social History Tobacco Use Types Packs/Day Years Used Date Smoking Tobacco: Never Alcohol Use Standard Drinks/Week Comments No 0 (1 standard drink = 0.6 oz pur e alcohol) not currently Sex and Gender Information Value Date Recorded Sex Assigned at Not on file Legal Sex 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 Gender Identity Not on file Sexual Orientation Not on file 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 Plan of Treatment Upcoming Encounters Date Type Department Care Team (Latest Contact Info) Description 02/13/2025 3:20 PM CDT Appointment [facility] [address] [facility] [address] [place] [phone] Kayode Ivey MD 6 [place] [address] 03/07/2025 3:00 PM CDT Ancillary Procedure [address] [place] [address] Srinivas Stern PA-C [address] [place] [phone] 04/24/2025 2:40 PM CDT Virtual Visit [facility] [address] [address] Alexis Torres MD 420 [place] [address] Srinivas Stern PA-C 909 [place], [place] 757635 06/05/2025 3:30 PM CDT Virtual Visit [facility] MTM 909 [facility] [address] 2nd [place] [address] Kayode Ivey MD 516 [place] [address] Bandar Casas, [facility] 420 [facility] 812 [place], [place] 517525 documented as of this encounter Visit Diagnoses Not on filedocumented in this encounter Additional Health Concerns Infection Onset Date Last Indicated Resolved Time MRSA-Contact Isolation Comment: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, chest, and elbow 02/17/2016 02/17/2016 Rule Out C-difficile 10/04/2023 10/05/2023 024 7:28 PM BOTTLE BLOWING MACHINE TENDER C-difficile 10/05/2023 10/05/2023 11/04/2023 11:3 9 PM BOTTLE BLOWING MACHINE TENDER Rule Out C-difficile 09/03/2024 09/04/2024 025 12:45 PM BOTTLE BLOWING MACHINE TENDER Assessment Noted Time PHQ-9 Depression Total Score: 9 03/02/20 16 7:16 AM CDT documented as of this encounter Care Teams Minute Clerk For Basic Traffic Relationship Specialty Start Date End Date Jairo Vasquez MD PCP - General Family Medicine - Sports Medicine 12/29/15 Kylee Dailey MD [address] [place] [address] 2A [place] [address] Internal Medicine 04/01/17 Kayode Ivey MD [address] [place] [address] Gastroenterology 04/01/17 Nicolasa Perez APRN METAL CASKET MAKER [address] [place] [address] [id number] [place], [place] 403785 Nurse Practitioner Nurse Practitioner 04/28/17 Loyda Dickey RN Nurse Coordinator Neurology 05/26/17 02/26/19 Srinivas Stern PA-C [address] [place] [address] [phone] Physician Informatica Physician Informatica 10/02/18 Srinivas Stern PA-C [address] [place] [address] 452165 Assigned Heart and Vascular Provider 11/19/20 06/27/21 Violet Ta [facility] [address] [place] [address] Pharmacist Pharmacist 12/29/20 02/08/21 Sue Mckeon [facility] [address] [place] [address] 179605 Pharmacist Pharmacist Furnace Loader 02/09/21 06/29/22 Karen Trinh MD [address] [place] [address] [phone] Assigned Infectious Disease Provider 02/08/21 07/30/22 Violet Ta [facility] [address] [place] [address] [phone] Assigned MTM Pharmacist 02/27/22 05/21/22 Violet Ta [facility] [address] [place] [address] [address] [place] [address] Assigned MTM Pharmacist 06/02/22 07/09/22 Srinivas Stern PA-C 909 [place] [address] Assigned Gastroenterology Provider 07/17/22 Bandar Casas [facility] [address] [address] Pharmacist Pharmacist 08/18/23 Bandar Casas [facility] [address] [place] [address] Assigned MTM Pharmacist 08/27/23 Ayana Zhang PA-C [address] [place] [address] Physician Informatica Rheumatology 04/16/24 Srinivas Stern PA-C [address] [place] [address] Home Infusion Following Provider Gastroenterology 07/11/24 10/05/24 documented as of this encounter
--- OUTSIDE RECORDS SUMMARY | 2025-01-15 15:46 | XMS_ITS | Encounter Summary ---
Author Organization [facility] Address [address] [place] [address] Care Team Providers Care Rn Dialysis Name Role Phone Jairo Vasquez MD Primary Care Provider [phone] Kylee Dailey MD Unavailable + Kayode Ivey MD Unavailable [phone] Nicolasa Perez APRN CAD DETAILER Unavaila ble Srinivas Stern PA-C Unavailable +[phone] Srinivas Stern PA-C Unavailable +[phone] Violet Ta [facility] Unavailable +[phone] Sue Mckeon [facility] Unavailable [phone] Karen Trinh MD Unavailable +[phone] Violet Ta [facility] Unavailable +[phone] Violet Ta [facility] Unavailable +[phone] Srinivas Stern PA-C Unavailable +[phone] Bandar Casas [facility] Unavailable [phone] Bandar Casas [facility] Unavailable +[phone] Ayana Zhang PA-C Unavailable [phone] Srinivas Stern PA-C Unavailable [phone] Encounter Details Date Type Department Care Team (Late st Contact Info) Description 01/14/2021 MyC Medical Advice [facility] Infectious Disease Clinic [address] [address] Ayana Padilla, RN Social History Tobacco Use Types Packs/Day Years Used Date Smoking Tobacco: Never Smokeless Tobacco: Never Alcohol Use Standard Drinks/Week Comments Yes 13 (1 standard drink = 0.6 oz pu re alcohol) MONTHLY PHQ-2 Answer Date Recorded PHQ-2 Score 2 08/20/2019 Sex and Gender Information Value Date Recorded Sex Assigned at Not on file 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 Sex 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 Gender Identity Not on file Sexual Orientation [...] Info) Description 02/13/2025 3:20 PM CDT Appointment [facility] Imaging [address] [facility] [address] [place] [address] Kayode Ivey MD 6 [place], [place] [phone] 03/07/2025 3:00 PM CDT Ancillary Procedure [facility] [address] [facility] [address] [place] [address] Srinivas Stern PA-C 909 [place] [address] 04/24/2025 2:40 PM CDT Virtual Visit [facility] [address] 4th [place] [address] Alexis Torres MD 420 [place] [address] Srinivas Stern PA-C 909 [place], [place] 917845 06/05/2025 3:30 PM CDT Virtual Visit [facility] 909 [facility] 2nd [place] [address] Kayode Ivey MD 516 [place], [place] [phone] Bandar Casas, [facility] 420 [facility] 812 [place], [place] 730975 documented as of this encounter Visit Diagnoses Not on filedocumented in this encounter Additional Health Concerns Infection Onset Date Last Indicated Resolved Time MRSA-Contact Isolation Comment: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, chest, and elbow 02/17/2016 02/17/2016 Rule Out C-difficile 10/04/2023 10/05/2023 024 7:28 PM NURSING ADMINISTRATOR C-difficile 10/05/2023 10/05/2023 11/04/2023 11:3 9 PM NURSING ADMINISTRATOR Rule Out C-difficile 09/03/2024 09/04/2024 025 12:45 PM NURSING ADMINISTRATOR Assessment Noted Time PHQ-9 Depression Total Score: 9 03/02/20 16 7:16 AM CDT documented as of this encounter Care Teams Rn Dialysis Relationship Specialty Start Date End Date Jairo Vasquez MD PCP - General Family Medicine - Sports Medicine 12/29/15 Kylee Dailey MD [address] [place] [address] 2A [place] [address] Internal Medicine 04/01/17 Kayode Ivey MD [address] [place] [address] Gastroenterology 04/01/17 Nicolasa Perez APRN CAD DETAILER [address] [place] [address] [id number] [place] [address] Nurse Practitioner Nurse Practitioner 04/28/17 Srinivas Stern PA-C [address] [place] [address] Physician Stock Worker Physician Stock Worker 10/02/18 Srinivas Stern PA-C [address] [place] [address] Assigned Heart and Vascular Provider 11/19/20 06/27/21 [facility] [address] [place] [address] Pharmacist Pharmacist 12/29/20 02/08/21 Sue Mckeon [facility] [address] [place] [address] Pharmacist Pharmacist Transmitter Supervisor 02/09/21 06/29/22 Karen Trinh MD [address] [place] [address] [phone] Assigned Infectious Disease Provider 02/08/21 07/30/22 Violet Ta, [facility] [address] [place] [address] Assigned MTM Pharmacist 02/27/22 05/21/22 Violet Ta [facility] 480 [facility] [address] [place] [address] Assigned MTM Pharmacist 06/02/22 07/09/22 Srinivas Stern PA-C 909 [place] [address] Assigned Gastroenterology Provider 07/17/22 Bandar Casas [facility] [address] [phone] Pharmacist Pharmacist 08/18/23 Bandar Casas [facility] [address] 675525 Assigned MTM Pharmacist 08/27/23 Ayana Zhang PA-C [address] [place] [address] Physician Stock Worker Rheumatology 04/16/24 Srinivas Stern PA-C 909 [place] [address] Home Infusion Following Provider Gastroenterology 07/11/24 10/05/24 documented as of this encounter
--- OUTSIDE RECORDS SUMMARY | 2025-01-15 15:46 | XMS_ITS | Encounter Summary ---
Author Organization [facility] Address [address] [place] [address] Care Team Providers Care Linen Room Houseperson Name Role Phone Jairo Vasquez MD Primary Care Provider [phone] Kylee Dailey MD Unavailable + Kayode Ivey MD Unavailable [phone] Nicolasa Perez APRN MEDICAL VOUCHER CLERK Unavaila ble Srinivas Stern PA-C Unavailable +[phone] Srinivas Stern PA-C Unavailable +[phone] Violet Ta [facility] Unavailable +[phone] Sue Mckeon [facility] Unavailable [phone] Karen Trinh MD Unavailable +[phone] Violet Ta [facility] Unavailable [phone] Violet Ta [facility] Unavailable +[phone] Srinivas Stern PA-C Unavailable +[phone] Bandar Casas [facility] Unavailable +[phone] Bandar Casas [facility] Unavailable +[phone] Ayana Zhang PA-C Unavailable +[phone] Srinivas Stern PA-C Unavailable +[phone] Encounter Details Date Type Department Care Team (Late st Contact Info) Description 01/16/2021 MyC Medical Advice [facility] [address] [address] Blanca Menezes, RN Social History Tobacco Use Types Packs/Day Years Used Date Smoking Tobacco: Never Smokeless Tobacco: Never Alcohol Use Standard Drinks/Week Comments Yes 13 (1 standard drink = 0.6 oz pu re alcohol) MONTHLY PHQ-2 Answer Date Recorded PHQ-2 Score 2 08/20/2019 Sex and Gender Information Value Date Recorded Sex Assigned at Not on file 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 Sex 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 Gender Identity Not on file Sexual Orientation [...] Info) Description 02/13/2025 3:20 PM CDT Appointment [facility] Imaging [address] [facility] [address] [place] [address] Kayode Ivey MD [address] [place], [place] [id number] 03/07/2025 3:00 PM CDT Ancillary Procedure [address] [place] [address] Srinivas Stern PA-C 9 [place] [address] 04/24/2025 2:40 PM CDT Virtual Visit [facility] [address] [phone] Alexis Torres MD 420 [place] [address] Srinivas Stern PA-C 909 [place], [place] 600085 06/05/2025 3:30 PM CDT Virtual Visit [facility] [address] 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, chest, and elbow 02/17/2016 02/17/2016 Rule Out C-difficile 10/04/2023 10/05/2023 024 7:28 PM LOFT WORKER HEAD C-difficile 10/05/2023 10/05/2023 11/04/2023 11:3 9 PM LOFT WORKER HEAD Rule Out C-difficile 09/03/2024 09/04/2024 025 12:45 PM LOFT WORKER HEAD Assessment Noted Time PHQ-9 Depression Total Score: 9 03/02/20 16 7:16 AM CDT documented as of this encounter Care Teams Linen Room Houseperson Relationship Specialty Start Date End Date Jairo Vasquez MD PCP - General Family Medicine - Sports Medicine 12/29/15 Kylee Dailey MD [address] [place] [address] [address] [place] [address] Internal Medicine 04/01/17 Kayode Ivey MD [address] [place] [address] Gastroenterology 04/01/17 Nicolasa Perez APRN MEDICAL VOUCHER CLERK [address] [place] [address] [id number] [place] [address] Nurse Practitioner Nurse Practitioner 04/28/17 Srinivas Stern PA-C [address] [place] [address] Physician Ccna Physician Ccna 10/02/18 Srinivas Stern PA-C [address] [place] [address] Assigned Heart and Vascular Provider 11/19/20 06/27/21 Violet Ta [facility] [address] [place] [address] Pharmacist Pharmacist 12/29/20 02/08/21 Sue Mckeon [facility] [address] [place] [address] Pharmacist Pharmacist Gyroscopic Instrument Tester 02/09/21 06/29/22 Karen Trinh MD [address] [place] [address] Assigned Infectious Disease Provider 02/08/21 07/30/22 Violet Ta, [facility] [address] [facility] [address] [place] [address] Assigned MTM Pharmacist 02/27/22 05/21/22 Violet Ta [facility] [address] [facility] [address] [place] [address] Assigned MTM Pharmacist 06/02/22 07/09/22 Srinivas Stern PA-C 909 [place] [address] Assigned Gastroenterology Provider 07/17/22 Bandar Casas [facility] [address] [phone] Pharmacist Pharmacist 08/18/23 Bandar Casas [facility] [address] [phone] Assigned MTM Pharmacist 08/27/23 Ayana Zhang PA-C 5200 [place] [address] Physician Ccna Rheumatology 04/16/24 Srinivas Stern PA-C 909 [place], [place] [phone] Home Infusion Following Provider Gastroenterology 07/11/24 10/05/24 documented as of this encounter
--- OUTSIDE RECORDS SUMMARY | 2025-01-15 15:46 | XMS_ITS | Encounter Summary ---
Author Organization [facility] Address [address] [place] [address] Care Team Providers Care [place] Name Role Phone Jairo Vasquez MD Primary Care Provider [phone] Kylee Dailey MD Unavailable + Kayode Ivey MD Unavailable [phone] Nicolasa Perez APRN DECISION ANALYST Unavaila ble Loyda Dickey RN Unavailable +[phone] Srinivas Stern PA-C Unavailable [phone] Srinivas Stern PA-C Unavailable +[phone] Violet Ta [facility] Unavailable +[phone] Sue Mckeon [facility] Unavailable [phone] Karen Trinh MD Unavailable +[phone] Violet Ta [facility] Unavailable +[phone] Violet Ta [facility] Unavailable +[phone] Srinivas Stern PA-C Unavailable +[phone] Bandar Casas [facility] Unavailable +[phone] Bandar Casas [facility] Unavailable Ayana Zhang PA-C Unavailable [phone] Srinivas Stern PA-C Unavailable Encounter Details Date Type Department Care Team (Late st Contact Info) Description 07/08/2016 MyC Medical Advice [facility] [address] [place] [phone] Kayode Ivey MD 6 [place] [address] Social History Tobacco Use Types Packs/Day Years Used Date Smoking Tobacco: Never Alcohol Use Standard Drinks/Week Comments No 0 (1 standard drink = 0.6 oz pur e alcohol) not currently Sex and Gender Information Value Date Recorded Sex Assigned at Not on file 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 Imaging [address] [facility] [address] [place] [phone] Kayode Ivey MD 6 [place] [address] 03/07/2025 3:00 PM CDT Ancillary Procedure [address] [place] [address] Srinivas Stern PA-C [address] [place] [phone] 04/24/2025 2:40 PM CDT Virtual Visit [facility] [address] [address] Alexis Torres MD [address] [place] [address] Srinivas Stern PA-C 909 [place], [place] 527105 06/05/2025 3:30 PM CDT Virtual Visit Viola MADERA MTM [address] [facility] [address] 2nd [place] [phone] Kayode Ivey MD 516 [place] [address] Bandar Casas, [facility] 420 [facility] 812 [place], [place] 237635 documented as of this encounter Visit Diagnoses Not on filedocumented in this encounter Additional Health Concerns Infection Onset Date Last Indicated Resolved Time MRSA-Contact Isolation Comment: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, chest, and elbow 02/17/2016 02/17/2016 Rule Out C-difficile 10/04/2023 10/05/2023 024 7:28 PM CHIEF METEOROLOGIST C-difficile 10/05/2023 10/05/2023 11/04/2023 11:3 9 PM CHIEF METEOROLOGIST Rule Out C-difficile 09/03/2024 09/04/2024 025 12:45 PM CHIEF METEOROLOGIST Assessment Noted Time PHQ-9 Depression Total Score: 9 03/02/20 16 7:16 AM CDT documented as of this encounter Care Teams [place]man Relationship Specialty Start Date End Date Jairo Vasquez MD PCP - General Family Medicine - Sports Medicine 12/29/15 Kylee Dailey MD [address] [place] [address] [address] [place] [address] Internal Medicine 04/01/17 Kayode Ivey MD [address] [place] [address] Gastroenterology 04/01/17 Nicolasa Perez APRN DECISION ANALYST [address] [place] [address] [id number] [place], [place] 914405 Nurse Practitioner Nurse Practitioner 04/28/17 Loyda Dickey RN Nurse Coordinator Neurology 05/26/17 02/26/19 Srinivas Stern PA-C [address] [place] [address] [phone] Physician Italian Tutor Physician Italian Tutor 10/02/18 Srinivas Stern PA-C [address] [place] [address] [phone] Assigned Heart and Vascular Provider 11/19/20 06/27/21 Violet Ta [facility] [address] [place] [address] Pharmacist Pharmacist 12/29/20 02/08/21 Sue Mckeon [facility] [address] [place] [address] [phone] Pharmacist Pharmacist Record Changer 02/09/21 06/29/22 Karen Trinh MD [address] [place] [address] [id number] Assigned Infectious Disease Provider 02/08/21 07/30/22 Violet Ta [facility] [address] [place] [address] [phone] Assigned MTM Pharmacist 02/27/22 05/21/22 Violet Ta [facility] [address] [place] [address] [address] [place] [address] Assigned MTM Pharmacist 06/02/22 07/09/22 Srinivas Stern PA-C 909 [place] [address] Assigned Gastroenterology Provider 07/17/22 Bandar Casas [facility] [address] [address] Pharmacist Pharmacist 08/18/23 Bandar Casas [facility] [address] [place] [address] Assigned MTM Pharmacist 08/27/23 Ayana Zhang PA-C [address] [place] [address] Physician Italian Tutor Rheumatology 04/16/24 Srinivas Stern PA-C [address] [place] [address] Home Infusion Following Provider Gastroenterology 07/11/24 10/05/24 documented as of this encounter
--- OUTSIDE RECORDS SUMMARY | 2025-01-15 15:46 | XMS_ITS | Encounter Summary ---
Author Organization [facility] Address [address] [place] [address] Care Team Providers Care Linux Systems Administrator Name Role Phone Jairo Vasquez MD Primary Care Provider [phone] Kylee Dailey MD Unavailable + Kayode Ivey MD Unavailable [phone] Nicolasa Perez APRN HAND WEAVER Unavaila ble Loyda Dickey RN Unavailable +[phone] Srinivas Stern PA-C Unavailable +[phone] Srinivas Stern PA-C Unavailable +[phone] Violet Ta [facility] Unavailable +[phone] Sue Mckeon [facility] Unavailable +[phone] Karen Trinh MD Unavailable +[phone] Violet Ta [facility] Unavailable +[phone] Violet Ta [facility] Unavailable +[phone] Srinivas Stern PA-C Unavailable +[phone] Bandar Casas [facility] Unavailable +[phone] Bandar Casas [facility] Unavailable Ayana Zhang PA-C Unavailable [phone] Srinivas Stern PA-C Unavailable Encounter Details Date Type Department Care Team (Late st Contact Info) Description 07/18/2016 MyC Medical Advice [facility] [address] [place] [address] Kayode Ivey MD 6 [place] [address] Social History Tobacco Use Types Packs/Day Years Used Date Smoking Tobacco: Never Alcohol Use Standard Drinks/Week Comments No 0 (1 standard drink = 0.6 oz pur e alcohol) not currently Sex and Gender Information Value Date Recorded Sex Assigned at Not on file Legal Sex 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 MAINSPRING STRIP INSPECTOR Gender Identity Not on file Sexual Orientation Not on file 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 [address] [place] [phone] Kayode Ivey MD 6 [place] [address] 03/07/2025 3:00 PM CDT Ancillary Procedure [address] [place] [address] Srinivas Stern PA-C [address] [place] [phone] 04/24/2025 2:40 PM CDT Virtual Visit [facility] [address] [address] Alexis Torres MD 420 [place] [address] Srinivas Stern PA-C 909 [place], [place] [phone] 06/05/2025 3:30 PM CDT Virtual Visit Viola MADERA MTM 909 [facility] [address] 2nd [place] [phone] Kayode Ivey MD 516 [place] [address] Bandar Casas, [facility] [address] [facility] 812 [place], [place] 601905 documented as of this encounter Visit Diagnoses Not on filedocumented in this encounter Additional Health Concerns Infection Onset Date Last Indicated Resolved Time MRSA-Contact Isolation Comment: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, chest, and elbow 02/17/2016 02/17/2016 Rule Out C-difficile 10/04/2023 10/05/2023 024 7:28 PM MAINSPRING STRIP INSPECTOR C-difficile 10/05/2023 10/05/2023 11/04/2023 11:3 9 PM MAINSPRING STRIP INSPECTOR Rule Out C-difficile 09/03/2024 09/04/2024 025 12:45 PM MAINSPRING STRIP INSPECTOR Assessment Noted Time PHQ-9 Depression Total Score: 9 03/02/20 16 7:16 AM CDT documented as of this encounter Care Teams Linux Systems Administrator Relationship Specialty Start Date End Date Jairo Vasquez MD PCP - General Family Medicine - Sports Medicine 12/29/15 Kylee Dailey MD [address] [place] [address] 2[address] [place] [address] Internal Medicine 04/01/17 Kayode Ivey MD [address] [place] [address] Gastroenterology 04/01/17 Nicolasa Perez APRN HAND WEAVER [address] [place] [address] [id number] [place], [place] 388985 Nurse Practitioner Nurse Practitioner 04/28/17 Loyda Dickey RN Nurse Coordinator Neurology 05/26/17 02/26/19 Srinivas Stern PA-C [address] [place] [address] [phone] Physician Mainframe Applications Developer Physician Mainframe Applications Developer 10/02/18 Srinivas Stern PA-C [address] [place] [address] [phone] Assigned Heart and Vascular Provider 11/19/20 06/27/21 Violet Ta [facility] [address] [place] [address] Pharmacist Pharmacist 12/29/20 02/08/21 Sue Mckeon [facility] [address] [place] [address] [phone] Pharmacist Pharmacist Compounder Helper 02/09/21 06/29/22 Karen Trinh MD [address] [place] [address] [phone] Assigned Infectious Disease Provider 02/08/21 07/30/22 Violet Ta [facility] [address] [place] [address] [phone] Assigned MTM Pharmacist 02/27/22 05/21/22 Violet Ta [facility] [address] [place] [address] [address] [place] [address] Assigned MTM Pharmacist 06/02/22 07/09/22 Srinivas Stern PA-C 909 [place] [address] Assigned Gastroenterology Provider 07/17/22 Bandar Casas [facility] [address] [address] Pharmacist Pharmacist 08/18/23 Bandar Casas [facility] [address] [place] [address] Assigned MTM Pharmacist 08/27/23 Ayana Zhang PA-C [address] [place] [address] Physician Mainframe Applications Developer Rheumatology 04/16/24 Srinivas Stern PA-C [address] [place] [address] Home Infusion Following Provider Gastroenterology 07/11/24 10/05/24 documented as of this encounter
--- OUTSIDE RECORDS SUMMARY | 2025-01-15 15:46 | XMS_ITS | Encounter Summary ---
Author Organization [facility] Address [address] [place] [address] Care Team Providers Care Tongue Carrier Name Role Phone Jairo Vasquez MD Primary Care Provider [phone] Kylee Dailey MD Unavailable + Kayode Ivey MD Unavailable [phone] Nicolasa Perez APRN LOGISTICS INTERN Unavaila ble Srinivas Stern PA-C Unavailable [phone] Srinivas Stern PA-C Unavailable Luisana Lang [facility] Unavailable Luisana Lang [facility] Unavailable [phone] Ayana Zhang PA-C Unavailable PitSrinivas mcintosh PA-C Unavailable Reason for Visit * Reason Comments Medication Therapy Management * (Routine) - Pending Review Specialty Diagnoses / Procedures Referred By Controberto carlos t Referred To Contact Referral ID Status Reason Start Date Expiration Date V isits Requested Visits Authorized [id number] Pending Review 09/26/2024 09/26/2025 1 1 Encounter Details Date Type Department Care Team ([facility] st Contact Info) Description 10/04/2024 11:30 AM DIRECTOR PRIVATE Virtual Visit [facility] [address] [facility] 2nd [place] [address] Srinivas Stern PA-C 909 [place] [address] Luisana Lang RP 420 [facility] 812 [place] [address] Ulcerative colitis with rectal bleeding, unspecified location (H) (Primary Dx); Essential hypertension; Hyperlipidemia Social History Tobacco Use Types Packs/Day Years Used Date Smoking Tobacco: Never Smokeless Tobacco: Never Alcohol Use Standard Drinks/Week Comments Yes 13 (1 standard drink = 0.6 oz pu re alcohol) MONTHLY PHQ-2 Answer Date Recorded PHQ-2 Score 1 10/24/2024 Adolescent Education Answer Date Record ed Getting School Help Needed Not on file 05/28 Sex and Gender Information Value Date Recorded Sex Assigned at Not on file Legal Sex 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 DIRECTOR PRIVATE Gender Identity Not on file Sexual Orientation Not on file 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 Last Filed Vital Signs Vital Sign Reading Time Taken Comments Blood Pressure - - Pulse - - Temperature - - Respiratory Rate - - Oxygen Saturation - - Inhaled Oxygen Concentration - - Weight 114.8 kg (253 lb) 10/04/2024 11:04 AM DIRECTOR PRIVATE Height 193 cm (6' 4) 10/04/2024 11:04 AM DIRECTOR PRIVATE Body Mass Index 30.8 10/04/2024 11:04 AM DIRECTOR PRIVATE documented in this encounter Patient Instructions * Patient Instructions* Luisana Lang RPH - 10/04/2024 11:30 AM DIRECTOR PRIVATE Recommendations from today's MTM visit: You are due for follow-up in the GI clinic. Please call ph: [phone], option #1 to schedule an appointment. Encourage you to discuss restarting atorvastatin with the prescriber. I will check into your insurance coverage for the Entyvio pens. Follow-up: MTM visit after you follow-up in the GI clinic It was great speaking with you today. I value your experience and would be very thankful for your time in providing feedback in our clinic survey. In the next few days, you may receive an email or text message from [employer] with a link to a survey related to your ???clinical pharmacist. To schedule another MTM appointment, please call the clinic directly or you may call the MTM scheduling line at [phone] or toll-free at . My Clinical Pharmacist's contact information: Please feel free to contact me with any questions or concerns you have. Luisana Lang PharmD, BCPS MTM Pharmacist [facility] Gastroenterology CTOR PRIVATE documented in this encounter Progress Notes * Luisana Lang RPH - 10/04/2024 11:30 AM CST Medication Therapy Management (MTM) Encounter ASSESSMENT: Medication Adherence/Access: No issues identified. Ulcerative Colitis: Igor would benefit from meeting in GI clinic to discuss next steps in his treatment for UC. It seems unlikely that his symptoms of joint pain and fatigue are caused by vedolizumab, however based ontiming of symptoms of dizziness and tachycardia with his last infusion, it is possible he is experiencing some mild infusion reactions in addition to his underlying joint pain and fatigue. Given his excellent response to Entyvio, I think he would be a good candidate to try Entyvio subcutaneous injections which may provide relief from these mild infusion reactions. Given that he is currently in remission with normal fecal calpro I think it is reasonable to start him on Entyvio pens without reloading with infusions. We will start by investigating insurance coverage for the pens. They are up to date on routine maintenance labs. They are up to date on annual tuberculosis screening. Health maintenance was not comprehensively reviewed with this visit. Addendum 10/19/2024: Per verbal agreement with BRENT Kenney to start Entyvio 108 mg subcutaneous pens every 14 days now. Prior authorization approved. Rx sent with this encounter. Will send MyChart to patient. Hypertension/Hyperlipidemia: Continue management per PCP. Recommend discussing with his prescriber if he can resume atorvastatin. PLAN: You are due for follow-up in the GI clinic. Please call ph: [phone], option #1 to schedule an appointment. Encourage you to discuss restarting atorvastatin with the prescriber. I will check into your insurance coverage for the Entyvio pens. Follow-up: MTM visit after you follow-up in the GI clinic SUBJECTIVE/OBJECTIVE: Igor Flores is a 48 year old male seen for a follow-up visit. Reason for visit: IBD follow-up visit. Allergies/ADRs: Reviewed in chart Past Medical History: Reviewed in chart Tobacco: He reports that he has never smoked. He has never used smokeless tobacco. Alcohol: Less than 1 beverage / month Medication Adherence/Access: concern about side effects from vedolizumab Ulcerative Colitis: Entyvio 300 mg every 8 weeks -on hold, last infusion 08/07/2024; prior to this, last infusion was 04/11/2024 Met with Igor for a follow-up visit to discuss his Entyvio. Briefly, he has been hesitant to continue this medication due to concerns it is causing fatigue and joint pain. At follow-up visit with Srinivas in May 2024, plan to hold for 4-6 months to evaluate if its truly contributing. Reports that most of his joint pain, shoulder pain worsened Patient sent MYC 07/09/2024 that he had increase in GI symptoms, ultimately restarted him on Entyvio with infusion on 08/07/2024. He reports dizziness, chest pain, tachycardia, fatigue. Did not have any shoulder pain/other joint pain except tennis elbow prior to his 08/07/2024 infusion, then about 7-10 days after that infusion he had the joint pain return. Per Dr. Ivey, he should follow-up with Srinivas Stern PA-C or MD Uche to discuss next steps in his treatment. On 09/01/2024 he wrote in on MYC that he has concerns about c. Diff, orders for stoolstudy placed, enteric panel and fecal calpro came back normal, C. Diff test not completed, reports that it was because he has a solid specimen, he has not had a loose specimen since then. Last night a little bout of rectal pain and loose stools. Went away in morning. PRO-2 for Ulcerative Colitis Please select the one best answer for the patient's ability at this time How would you rate your stool frequency over the last 3 days? Normal (+0) How would you rate the severity of your rectal bleeding over the last 3 days? None: 0 points 3. Over the last week, how would you rate your general well-being? Generally Well Score: 0 (do not include question 3 in scoring) 0: Inactive Disease 1-1.5: Remission 6: Active disease and spontaneous bleeding Specialty medication department: UC MTM GI Original start date: May 2021 Last dose: 08/07/2024 Next dose: on hold, was due 10/02/2024 Therapeutic drug monitoring: Vedolizumab level: 04/11/2024 vedolizumab 11 no antibodies Last provider visit: 05/16/2024 NATASHA Stern Next provider visit: needs to be seen Last labs completed: 09/03/2024 Last Tb screenin07/17/2024 Lab frequency: every 3 months - standing labs 07/09/2025 Next labs due: november 2024 Last IBD Health Maintenance Review: 08/16/2023 Hypertension/Hyperlipidemia: Amlodipine 5 mg once daily Atorvastatin 10 mg once daily- on hold His PCP told him to hold atorvastatin when he was experiencing his unusual pains. The pains did notgo away, as discussed above, but has not restarted. Last lipid panel 08/16/2024. Not home monitoring at this time but plans to start. He is undergoing additional work up due to finding of dilated ascending aorta on stress test in August 2024. Today's Vitals: Ht 6' 4 (1.93 m) Wt 253 lb (114.8 kg) BMI 30.80 kg/m?? I spent 20 minutes with this patient today. All changes were made via collaborative practice agreement with Srinivas Stern PA-C. A summary of these recommendations was sent via [facility]. Luisana Lang, PharmD, BCPS [facility] Pharmacist [facility] Gastroenterology Telemedicine Visit Details The patient's medications can be safely assessed via a telemedicine encounter. Type of service: Telephone visit Originating Location (pt. Location): Home Distant Location (provider location): Off-site Start Time: 11:30 AM End Time: 11:50 AM Medication Therapy Recommendations No medication therapy recommendations to display CTOR PRIVATE CTOR PRIVATE documented in this encounter Nursing Notes * Carline Arriaga - 10/04/2024 11:30 AM CST Current patient location: [address] [place] [id number] Is the patient currently in the state of [place]? YES Visit mode: TELEPHONE If the visit is dropped, the patient can be reconnected by:TELEPHONE VISIT: Phone number: Telephone Information: Will anyone else be joining the visit? NO (If patient encounters technical issues they should call [phone] :[phone]) Are changes needed to the allergy or medication list? No Are refills needed on medications prescribed by this physician? NO Rooming Documentation: Questionnaire(s) not done per department protocol Reason for visit: RECHECK Carline Covington VVF CTOR PRIVATE documented in this encounter Miscellaneous Notes * Addendum Note - Luisana Lang RPH - 10/04/2024 11:30 AM CSTAddended by: LUISANA LANG on: 10/19/2024 04:21 PM Modules accepted: Orders CTOR PRIVATE documented in this encounter Plan of Treatment Upcoming Encounters Date Type Department Care Team (Latest Contact Info) Description 02/13/2025 3:20 PM CDT Appointment [facility] [address] [facility] [address] [place] [address] Kayode Ivey MD [address] [place] [address] 03/07/2025 3:00 PM CDT Ancillary Procedure [address] [place] [address] Srinivas Stern PA-C 9 [place], [place] [address] 04/24/2025 2:40 PM CDT Virtual Visit [facility] [address]th [place] [phone] Alexis Torres MD 420 [place], [place] [phone] Srinivas Stern PA-C [address] [place] [id number] 06/05/2025 3:30 PM CDT Virtual Visit [facility] GI [address] [place] [phone] Kayode Ivey MD [address] [place], [place] 6[address] Luisana Lang RPH 420 [facility] 812 [place], [place] [address] documented as of this encounter Visit Diagnoses Diagnosis Ulcerative colitis with rectal bleeding, unspecified location (H)- Primary Essential hypertension Unspecified essential hypertension Hyperlipidemia Other and unspecified hyperlipidemia documented in this encounter Additional Health Concerns Infection Onset Date Last Indicated Resolved Time MRSA-Contact Isolation Comment: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, chest, and elbow 02/17/2016 02/17/2016 Assessment Noted Time PHQ-9 Depression Total Score: 9 03/02/20 16 7:16 AM CDT documented as of this encounter Care Teams Tongue Carrier Relationship Specialty Start Date End Date Jairo Vasquez MD PCP - General Family Medicine - Sports Medicine 12/29/15 Kylee Dailey MD 516 [facility] [address] [place] [address] Internal Medicine 04/01/17 Kayode Ivey MD 6 [place] [address] Gastroenterology 04/01/17 Nicolasa Perez APRN LOGISTICS INTERN [address] [place] [address] [id number] [place] [address] Nurse Practitioner Nurse Practitioner 04/28/17 Srinivas Stern PA-C [address] [place] [address] [id number] Physician Staff Physical Therapy Assistant Physician Staff Physical Therapy Assistant 10/02/18 Srinivas Stern PA-C 9 [place], [place] [address] Assigned Gastroenterology Provider 07/17/22 Luisana Lang RPH [address] [place] [address] [place], [place] [address] Pharmacist Pharmacist 08/18/23 Luisana Lang RPH [address] [address] Assigned MTM Pharmacist 08/27/23 Ayana Zhang PA-C 5[address] [place] [address] Physician Staff Physical Therapy Assistant Rheumatology 04/16/24 Srinivas Stern PA-C 909 [place] [address] Home Infusion Following Provider Gastroenterology 07/11/24 10/05/24 documented as of this encounter
--- OUTSIDE RECORDS SUMMARY | 2025-01-15 15:46 | XMS_ITS | Encounter Summary ---
Author Organization [facility] Address [address] [place] [address]. [place] [address] Care Team Providers Care Routing Machine Operator Name Role Phone Jairo Vasquez MD Primary Care Provider Kylee Dailey MD Unavailable + Kayode Ivey MD Unavailable [phone] Nicolasa Perez APRN DIE SINKER APPRENTICE Unavaila ble Srinivas Stern-C Unavailable [facility] Unavailable [phone] Bandar Casas [facility] Unavailable Bandar Casas [facility] Unavailable Ayana Zhang-C Unavailable Srinivas Stern-C Unavailable Encounter Details Date Type Department Care Team (Late st Contact Info) Description 06/01/2023 [facility] Medical Advice [facility] Gastro[facility]ology Clinic [address] 4th [place] [address] Kira Delgado RN Social History [...] on file Legal Sex 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 Gender Identity Not on file Sexual Orientation [...] Info) Description 02/13/2025 3:20 PM CDT Appointment [facility] [place] [facility] [address] [facility] [address] [place] [phone] Kayode Ivey MD 516 [place] [address] 03/07/2025 3:00 PM CDT Ancillary Procedure [facility] [address] [facility] [address] [place] [address] Srinivas Stern PA-C [address] [place] [phone] 04/24/2025 2:40 PM CDT Virtual Visit [facility]astroenterology Clinic [address] [place] [address] Alexis Torres MD 420 [place], [place] [phone] Srinivas Stern PA-C [address] [place] [phone] 06/05/2025 3:30 PM CDT Virtual Visit [facility] GI [address] [place] [address] Kayode Ivey MD 516 [place] [address] Bandar Casas, [facility] 420 [facility] 812 [place] [address] documented as of this encounter Visit Diagnoses Not on filedocumented in this encounter Additional Health Concerns Infection Onset Date Last Indicated Resolved Time MRSA-Contact Isolation Comment: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, chest, and elbow 02/17/2016 02/17/2016 Rule Out C-difficile 10/04/2023 10/05/2023 024 7:28 PM ONLINE MERCHANDISING MANAGER C-difficile 10/05/2023 10/05/2023 11/04/2023 11:3 9 PM ONLINE MERCHANDISING MANAGER Rule Out C-difficile 09/03/2024 09/04/2024 025 12:45 PM ONLINE MERCHANDISING MANAGER Assessment Noted Time PHQ-9 Depression Total Score: 9 03/02/20 16 7:16 AM CDT documented as of this encounter Care Teams Routing Machine Operator Relationship Specialty Start Date End Date Jairo Vasquez MD PCP - General Family Medicine - Sports Medicine 12/29/15 Kylee Dailey MD [address] [place], [place] [address]B [address] [place] [address] Internal Medicine 04/01/17 Kayode Ivey MD 6 [place] [address] Gastroenterology 04/01/17 Nicolasa Perez APRN DIE SINKER APPRENTICE [address] [place] [address] [id number] [place] [address] Nurse Practitioner Nurse Practitioner 04/28/17 Srinivas Stern PA-C 909 [place], [place] [address] Physician Mud Mill Tender Physician Mud Mill Tender 10/02/18 Srinivas Stern PA-C 909 [place], [place] 9256[address] Assigned Gastroenterology Provider 07/17/22 Bandar Casas RPH [address] [address] Pharmacist Pharmacist 08/18/23 Bandar Casas RPH [address] [address] Assigned MTM Pharmacist 08/27/23 Ayana Zhang PA-C 5[address] [place], [place] [id number] Physician Mud Mill Tender Rheumatology 04/16/24 Srinivas Stern PA-C 9 [place], [place] [address] Home Infusion Following Provider Gastroenterology 07/11/24 10/05/24 documented as of this encounter
--- OUTSIDE RECORDS SUMMARY | 2025-01-15 15:46 | XMS_ITS | Encounter Summary ---
Author Organization [facility] Address [address] [place] [address] Care Team Providers Care Laboratory Machinist Name Role Phone Jairo Vasquez MD Primary Care Provider [phone] Kylee Dailey MD Unavailable + Kayode Ivey MD Unavailable [phone] Nicolasa Perez APRN AIR HAMMER OPERATOR Unavaila ble Loyda Dickey RN Unavailable [phone] Srinivas Stern PA-C Unavailable [phone] Srinivas Stern PA-C Unavailable +[phone] Violet Ta [facility] Unavailable [phone] Sue Mckeon [facility] Unavailable [phone] Karen Trinh MD Unavailable +[phone] Violet Ta [facility] Unavailable [phone] Violet Ta [facility] Unavailable [phone] Srinivas Stern PA-C Unavailable +[phone] Bandar Casas [facility] Unavailable [phone] Bandar Casas [facility] Unavailable Ayana Zhang PA-C Unavailable [phone] Srinivas Stern PA-C Unavailable [phone] Encounter Details Date Type Department Care Team (Late st Contact Info) Description 04/05/2018 [facility] Medical Advice [facility] Neurosurgery [address] [place] [address] [address] [place] [address] Kamaljit Deleon MD [address] [place] [address] [id number] [place] [address] Social History Tobacco Use Types Packs/Day Years Used Date Smoking Tobacco: Never Smokeless Tobacco: Never Alcohol Use Standard Drinks/Week Comments Yes 13 (1 standard drink = 0.6 oz pu re alcohol) MONTHLY Sex and Gender Information Value Date Recorded Sex Assigned at Not on file Legal Sex 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 CLASS A LINEMAN Gender Identity Not on file Sexual Orientation Not on file 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 Plan of Treatment Upcoming Encounters Date Type Department Care Team (Latest Contact Info) Description 02/13/2025 3:20 PM CDT Appointment [facility] [address] [facility] [address] [place] [address] Kayode Ivey MD 516 [place] [address] 03/07/2025 3:00 PM CDT Ancillary Procedure [address] [place] [address] Srinivas Stern PA-C [address] [place] [phone] 04/24/2025 2:40 PM CDT Virtual Visit [facility]astroenterology [facility] [address] [place] [address] Alexis Torres MD 420 [place] [address] Srinivas Stern PA-C 909 [place], [place] [phone] 06/05/2025 3:30 PM CDT Virtual Visit [facility] [place] [address] [facility] 2nd [place] [phone] Kayode Ivey MD 516 [place] [address] Bandar Casas, [facility] 420 [facility] 812 [place] [address] documented as of this encounter Visit Diagnoses Not on filedocumented in this encounter Additional Health Concerns Infection Onset Date Last Indicated Resolved Time MRSA-Contact Isolation Comment: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, chest, and elbow 02/17/2016 02/17/2016 Rule Out C-difficile 10/04/2023 10/05/2023 024 7:28 PM CLASS A LINEMAN C-difficile 10/05/2023 10/05/2023 11/04/2023 11:3 9 PM CLASS A LINEMAN Rule Out C-difficile 09/03/2024 09/04/2024 025 12:45 PM CLASS A LINEMAN Assessment Noted Time PHQ-9 Depression Total Score: 9 03/02/20 16 7:16 AM CDT documented as of this encounter Care Teams Laboratory Machinist Relationship Specialty Start Date End Date Jairo Vasquez MD PCP - General Family Medicine - Sports Medicine 12/29/15 Kylee Dailey MD [address] [place] [address] 2[address] [place] [address] Internal Medicine 04/01/17 Kayode Ivey MD [address] [place] [address] Gastroenterology 04/01/17 Nicolasa Perez APRN AIR HAMMER OPERATOR [address] [place] [address] [id number] [place], [place] [phone] Nurse Practitioner Nurse Practitioner 04/28/17 Loyda Dickey RN Nurse Coordinator Neurology 05/26/17 02/26/19 Srinivas Stern PA-C [address] [place] [address] Physician Floriculture Professor Physician Floriculture Professor 10/02/18 Srinivas Stern PA-C [address] [place] [address] Assigned Heart and Vascular Provider 11/19/20 06/27/21 Violet Ta [facility] [address] [place] [phone] Pharmacist Pharmacist 12/29/20 02/08/21 Sue Mckeon [facility] [address] [place] [address] [phone] Pharmacist Pharmacist Meter Attendant 02/09/21 06/29/22 Karen Trinh MD [address] [place] [address] [phone] Assigned Infectious Disease Provider 02/08/21 07/30/22 Violet Ta [facility] [address] [place] [address] 96 [place], [place] [id number] Assigned MTM Pharmacist 02/27/22 05/21/22 Violet Ta [facility] 480 [facility] [address] [place] [address] Assigned MTM Pharmacist 06/02/22 07/09/22 Srinivas Stern PA-C [address] [place] [address] Assigned Gastroenterology Provider 07/17/22 Bandar Casas RPH [address] [address] Pharmacist Pharmacist 08/18/23 Bandar Casas RPH [address] [address] Assigned MTM Pharmacist 08/27/23 Ayana Zhang PA-C [address] [place] [address] Physician Floriculture Professor Rheumatology 04/16/24 Srinivas Stern PA-C [address] [place] [address] Home Infusion Following Provider Gastroenterology 07/11/24 10/05/24 documented as of this encounter
--- OUTSIDE RECORDS SUMMARY | 2025-01-15 15:46 | XMS_ITS | Encounter Summary ---
Author Organization [place] Address [address] [place] [address] Care Team Providers Care Heater Worker Name Role Phone Jairo Vasquez MD Primary Care Provider [phone] Kylee Dailey MD Unavailable + Kayode Ivey MD Unavailable [phone] Nicolasa Perez APRN PHOTO OPTICS TECHNICIAN Unavaila ble Loyda Dickey RN Unavailable +[phone] Srinivas Stern PA-C Unavailable +[phone] Srinivas Stern PA-C Unavailable +[phone] Violet Ta [facility] Unavailable +[phone] Sue Mckeon [facility] Unavailable +[phone] Karen Trinh MD Unavailable +[phone] Violet Ta [facility] Unavailable +[phone] Violet Ta [facility] Unavailable +[phone] Srinivas Stern PA-C Unavailable +[phone] Bandar Casas [facility] Unavailable +[phone] Bandar Casas [facility] Unavailable +[phone] Ayana Zhang PA-C Unavailable +[phone] Srinivas Stern PA-C Unavailable [phone] Encounter Details Date Type Department Care Team (Late st Contact Info) Description 06/24/2016 MyC Medical Advice [facility] [address] [place] [address] Kayode Ivey MD 6 [place] [address] Social History Tobacco Use Types Packs/Day Years Used Date Smoking Tobacco: Never Alcohol Use Standard Drinks/Week Comments No 0 (1 standard drink = 0.6 oz pur e alcohol) not currently Sex and Gender Information Value Date Recorded Sex Assigned at Not on file Legal Sex 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 LINUX SYSTEMS ADMINISTRATOR Gender Identity Not on file Sexual Orientation Not on file 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 Plan of Treatment Upcoming Encounters Date Type Department Care Team (Latest Contact Info) Description 02/13/2025 3:20 PM CDT Appointment [facility] Imaging [address] [facility] [address] [place] [phone] Kayode Ivey MD 6 [place] [address] 03/07/2025 3:00 PM CDT Ancillary Procedure [address] [place] [address] Srinivas Stern PA-C [address] [place] [address] [phone] 04/24/2025 2:40 PM CDT Virtual Visit [facility] [address] [address] Alexis Torres MD 420 [place] [address] Srinivas Stern PA-C 909 [place], [place] [phone] 06/05/2025 3:30 PM CDT Virtual Visit Viola MADERA MTM 909 [facility] [address] 2nd [place] [phone] Kayode Ivey MD 516 [place] [address] Bandar Casas, [facility] 420 [facility] 812 [place], [place] 818715 documented as of this encounter Visit Diagnoses Not on filedocumented in this encounter Additional Health Concerns Infection Onset Date Last Indicated Resolved Time MRSA-Contact Isolation Comment: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, chest, and elbow 02/17/2016 02/17/2016 Rule Out C-difficile 10/04/2023 10/05/2023 024 7:28 PM LINUX SYSTEMS ADMINISTRATOR C-difficile 10/05/2023 10/05/2023 11/04/2023 11:3 9 PM LINUX SYSTEMS ADMINISTRATOR Rule Out C-difficile 09/03/2024 09/04/2024 025 12:45 PM LINUX SYSTEMS ADMINISTRATOR Assessment Noted Time PHQ-9 Depression Total Score: 9 03/02/20 16 7:16 AM CDT documented as of this encounter Care Teams Heater Worker Relationship Specialty Start Date End Date Jairo Vasquez MD PCP - General Family Medicine - Sports Medicine 12/29/15 Kylee Dailey MD [address] [place] [address] [address] [place] [address] Internal Medicine 04/01/17 Kayode Ivey MD [address] [place] [address] Gastroenterology 04/01/17 Nicolasa Perez APRN PHOTO OPTICS TECHNICIAN [address] [place] [address] [id number] [place], [place] 006195 Nurse Practitioner Nurse Practitioner 04/28/17 Loyda Dickey RN Nurse Coordinator Neurology 05/26/17 02/26/19 Srinivas Stern PA-C [address] [place] [address] [phone] Physician Card Tape Converter Operator Physician Card Tape Converter Operator 10/02/18 Srinivas Stern PA-C [address] [place] [address] [phone] Assigned Heart and Vascular Provider 11/19/20 06/27/21 Violet Ta [facility] [address] [place] [phone] Pharmacist Pharmacist 12/29/20 02/08/21 Sue Mckeon [facility] [address] [place] [address] [phone] Pharmacist Pharmacist Melting Furnace Skimmer 02/09/21 06/29/22 Karen Trinh MD [address] [place] [address] [phone] Assigned Infectious Disease Provider 02/08/21 07/30/22 Violet Ta [facility] [address] [place] [address] [phone] Assigned MTM Pharmacist 02/27/22 05/21/22 Violet Ta [facility] [address] [place] [address] [address] [place] [address] Assigned MTM Pharmacist 06/02/22 07/09/22 Srinivas Stern PA-C 909 [place] [address] Assigned Gastroenterology Provider 07/17/22 Bandar Casas RPH [address] [address] Pharmacist Pharmacist 08/18/23 Bandar Casas RPH [address] [place] [address] Assigned MTM Pharmacist 08/27/23 Ayana Zhang PA-C [address] [place] [address] Physician Card Tape Converter Operator Rheumatology 04/16/24 Srinivas Stern PA-C [address] [place] [address] Home Infusion Following Provider Gastroenterology 07/11/24 10/05/24 documented as of this encounter
--- OUTSIDE RECORDS SUMMARY | 2025-01-15 15:46 | XMS_ITS | Encounter Summary ---
Author Organization [place] Address [address] [place] [address] Care Team Providers Care Siding Coreboard Inspector Name Role Phone Jairo Vasquez MD Primary Care Provider [phone] Kylee Dailey MD Unavailable + Kayode Ivey MD Unavailable [phone] Nicolasa Perez APRN FEEDER/FOLDER Unavaila ble Loyda Dickey RN Unavailable +[phone] Srinivas Stern PA-C Unavailable +[phone] Srinivas Stern PA-C Unavailable +[phone] Violet Ta [facility] Unavailable +[phone] Sue Mckeon [facility] Unavailable [phone] Karen Trinh MD Unavailable +[phone] Violet Ta [facility] Unavailable +[phone] Violet Ta [facility] Unavailable +[phone] Srinivas Stern PA-C Unavailable +[phone] Bandar Casas [facility] Unavailable +[phone] Bandar Casas [facility] Unavailable Ayana Zhang PA-C Unavailable [phone] Srinivas Stern PA-C Unavailable [phone] Encounter Details Date Type Department Care Team (Late st Contact Info) Description 06/23/2017 MyC Medical Advice [facility] Neurology [address] [place] [address] [address] [place] [address] Eliu Perezmila Pengshameka, [employer] FEEDER/FOLDER 909 [facility] [id number] [place] [address] Social History Tobacco Use Types Packs/Day Years Used Date Smoking Tobacco: Never Smokeless Tobacco: Never Alcohol Use Standard Drinks/Week Comments Yes 13 (1 standard drink = 0.6 oz pu re alcohol) MONTHLY Sex and Gender Information Value Date Recorded Sex Assigned at Not on file Legal Sex 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 FOIL WRAPPER Gender Identity Not on file Sexual Orientation Not on file 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 Gastroenterology Clinic [address] [place] [address] Alexis Torres MD 420 [place] [address] Srinivas Stern PA-C 909 [place] [address] 06/05/2025 3:30 PM CDT Virtual Visit Jose MADERA [place] 9[address] [facility] [address] 2nd [place] [phone] Kayode Ivey MD 516 [place] [address] Bandar Casas, [facility] 420 [facility] 812 [place] [address] documented as of this encounter Visit Diagnoses Not on filedocumented in this encounter Additional Health Concerns Infection Onset Date Last Indicated Resolved Time MRSA-Contact Isolation Comment: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, chest, and elbow 02/17/2016 02/17/2016 Rule Out C-difficile 10/04/2023 10/05/2023 024 7:28 PM FOIL WRAPPER C-difficile 10/05/2023 10/05/2023 11/04/2023 11:3 9 PM FOIL WRAPPER Rule Out C-difficile 09/03/2024 09/04/2024 025 12:45 PM FOIL WRAPPER Assessment Noted Time PHQ-9 Depression Total Score: 9 03/02/20 16 7:16 AM CDT documented as of this encounter Care Teams Siding Coreboard Inspector Relationship Specialty Start Date End Date Jairo Vasquez MD PCP - General Family Medicine - Sports Medicine 12/29/15 Kylee Dailey MD [address] [place] [address] [phone] Internal Medicine 04/01/17 Kayode Ivey MD [address] [place] [address] [phone] Gastroenterology 04/01/17 Nicolasa Perez APRN FEEDER/FOLDER [address] [place] [address] [id number] [place] [address] Nurse Practitioner Nurse Practitioner 04/28/17 Loyda Dickey RN Nurse Coordinator Neurology 05/26/17 02/26/19 Srinivas Stern PA-C [address] [place] [address] [phone] Physician Route Salesman Physician Route Salesman 10/02/18 Srinivas Stern PA-C [address] [place] [address] 156755 Assigned Heart and Vascular Provider 11/19/20 06/27/21 Violet Ta [facility] [address] [place] [address] Pharmacist Pharmacist 12/29/20 02/08/21 Sue Mckeon [facility] [address] [place] [address] 14345 Pharmacist Pharmacist Alumnae Secretary 02/09/21 06/29/22 Karen Trinh MD [address] [place] [address] 68186 Assigned Infectious Disease Provider 02/08/21 07/30/22 Violet Ta [facility] [address] [place] [address] Assigned MTM Pharmacist 02/27/22 05/21/22 Violet Ta [facility] [address] [place] [address] Assigned MTM Pharmacist 06/02/22 07/09/22 Srinivas Stern PA-C 909 [place] [address] Assigned Gastroenterology Provider 07/17/22 Bandar Casas RPH [address] [address] Pharmacist Pharmacist 08/18/23 Bandar Casas RPH [address] [address] Assigned MTM Pharmacist 08/27/23 Ayana Zhang PA-C 5200 [place] [address] Physician Route Salesman Rheumatology 04/16/24 Srinivas Stern PA-C 909 [place], [place] 706[address] Home Infusion Following Provider Gastroenterology 07/11/24 10/05/24 documented as of this encounter
--- OUTSIDE RECORDS SUMMARY | 2025-01-15 15:46 | XMS_ITS | Encounter Summary ---
Author Organization [place] Address [address] [place] [address] Care Team Providers Care Cloud Developer Name Role Phone Jairo Vasquez MD Primary Care Provider [phone] Kylee Dailey MD Unavailable + Kayode Ivey MD Unavailable [phone] Nicolasa Perez APRN COLD ROLLING COORDINATOR Unavaila ble Srinivas Stern PA-C Unavailable +[phone] Srinivas Stern PA-C Unavailable [phone] Violet Ta [facility] Unavailable +[phone] Sue Mckeon [facility] Unavailable [phone] Karen Trinh MD Unavailable [phone] Violet Ta [facility] Unavailable [phone] Violet Ta [facility] Unavailable +[phone] Srinivas Stern PA-C Unavailable +[phone] Bandar Casas [facility] Unavailable +[phone] Bandar Casas [facility] Unavailable +[phone] Ayana Zhang PA-C Unavailable [phone] Srinivas Stern PA-C Unavailable [phone] Encounter Details Date Type Department Care Team (Late st Contact Info) Description 01/12/2021 MyC Medical Advice [facility] Gastroenterology Clinic [address] [phone] Kayode Ivey MD [address] [place] [address] [phone] Social History Tobacco Use Types Packs/Day Years Used Date Smoking Tobacco: Never Smokeless Tobacco: Never Alcohol Use Standard Drinks/Week Comments Yes 13 (1 standard drink = 0.6 oz pu re alcohol) MONTHLY PHQ-2 Answer Date Recorded PHQ-2 Score 2 08/20/2019 Sex and Gender Information Value Date Recorded Sex Assigned at Not on file Legal Sex 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 TECHNICAL SPECIALIST CYTOLOGY Gender Identity Not on file Sexual Orientation Not on file 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 No / Unsure 01/13/2021 12:20 PM CDT documented as of this encounter Plan of Treatment Upcoming Encounters Date Type Department Care Team (Latest Contact Info) Description 02/13/2025 3:20 PM CDT Appointment [facility] Imaging [address] [facility] [address] [place] [phone] Kayode Ivey MD [address] [place] [address] 036035 03/07/2025 3:00 PM CDT Ancillary Procedure [address] [place] [address] Srinivas Stern PA-C [address] [place] [address] [phone] 04/24/2025 2:40 PM CDT Virtual Visit [facility] [address] [phone] Alexis Torres MD 420 [place], [place] 539465 Srinivas Stern PA-C 909 [place], [place] [phone] 06/05/2025 3:30 PM CDT Virtual Visit [facility] 909 [facility] 2nd [place] [phone] Kayode Ivey MD 516 [place] [address] Bandar Casas [facility] 420 [facility] 812 [place], [place] [phone] documented as of this encounter Visit Diagnoses Not on filedocumented in this encounter Additional Health Concerns Infection Onset Date Last Indicated Resolved Time MRSA-Contact Isolation Comment: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, chest, and elbow 02/17/2016 02/17/2016 Rule Out C-difficile 10/04/2023 10/05/2023 024 7:28 PM TECHNICAL SPECIALIST CYTOLOGY C-difficile 10/05/2023 10/05/2023 11/04/2023 11:3 9 PM TECHNICAL SPECIALIST CYTOLOGY Rule Out C-difficile 09/03/2024 09/04/2024 025 12:45 PM TECHNICAL SPECIALIST CYTOLOGY Assessment Noted Time PHQ-9 Depression Total Score: 9 03/02/20 16 7:16 AM CDT documented as of this encounter Care Teams Cloud Developer Relationship Specialty Start Date End Date Jairo Vasquez MD PCP - General Family Medicine - Sports Medicine 12/29/15 Kylee Dailey MD 6 [facility] 2A [place], [place] 697[address] Internal Medicine 04/01/17 Kayode Ivey MD [address] [place] [address] [phone] Gastroenterology 04/01/17 Nicolasa Perez APRN COLD ROLLING COORDINATOR [address] [place] [address] [id number] [place], [place] [phone] Nurse Practitioner Nurse Practitioner 04/28/17 Srinivas Stern PA-C [address] [place] [address] [phone] Physician Coil Tester Physician Coil Tester 10/02/18 Srinivas Stern PA-C [address] [place] [address] 999175 Assigned Heart and Vascular Provider 11/19/20 06/27/21 Violet Ta [facility] [address] [place] [address] Pharmacist Pharmacist 12/29/20 02/08/21 Sue Mckeon [facility] [address] [place] [address] [phone] Pharmacist Pharmacist Receiving Teller 02/09/21 06/29/22 Karen Trinh MD [address] [place] [address] [phone] Assigned Infectious Disease Provider 02/08/21 07/30/22 Violet Ta [facility] [address] [place] [address] Assigned MTM Pharmacist 02/27/22 05/21/22 Violet Ta [facility] [address] [place] [address] Assigned MTM Pharmacist 06/02/22 07/09/22 Srinivas Stern PA-C 909 [place] [address] Assigned Gastroenterology Provider 07/17/22 Bandar Casas RPH [address] [address] Pharmacist Pharmacist 08/18/23 Bandar Casas RPH [address] [address] Assigned MTM Pharmacist 08/27/23 Ayana Zhang PA-C 5200 [place] [address] Physician Coil Tester Rheumatology 04/16/24 Srinivas Stern PA-C 909 [place], [place] 781075 Home Infusion Following Provider Gastroenterology 07/11/24 10/05/24 documented as of this encounter
--- OUTSIDE RECORDS SUMMARY | 2025-01-15 15:46 | XMS_ITS | Encounter Summary ---
Author Organization [facility] Address [address] [place] [address]. [place] [address] Care Team Providers Care Finish Production Manager Name Role Phone Jairo Vasquez MD Primary Care Provider [phone] Kylee Dailey MD Unavailable + Kayode Ivey MD Unavailable [phone] Nicolasa Perez APRN HISTOPATH TECH Unavaila ble Srinivas Stern-C Unavailable rSinivas Stern-C Unavailable [phone] Bandar Casas [facility] Unavailable [phone] Bandar Casas [facility] Unavailable [phone] Ayana Zhang-C Unavailable Srinivas Stern-C Unavailable Encounter Details Date Type Department Care Team (Late st Contact Info) Description 10/04/2024 [facility] 9[address] [facility] [address] 2nd [place] [address] Bandar Casas, [facility] 420 [facility] 812 [place] [address] Social History Tobacco Use Types Packs/Day Years Used Date Smoking Tobacco: Never Smokeless Tobacco: Never Alcohol Use Standard Drinks/Week Comments Yes 13 (1 standard drink = 0.6 oz pu re alcohol) MONTHLY PHQ-2 Answer Date Recorded PHQ-2 Score 0 05/16/2024 Adolescent Education Answer Date Record ed Getting School Help Needed Not on file 05/28 Sex and Gender Information Value Date Recorded Sex Assigned at Not on file Legal Sex 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 WRIST LINER Gender Identity Not on file Sexual Orientation Not on file 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 [address] [facility] [address] [place] [address] Srinivas Stern PA-C [address] [place] [address] 04/24/2025 2:40 PM CDT Virtual Visit [facility] Gastroenterology Clinic [address] [place] [address] Alexis Torres MD 420 [place], [place] [phone] Srinivas Stern PA-C [address] [place] [address] 06/05/2025 3:30 PM CDT Virtual Visit [facility] GI [address]nd [place] [phone] Kayode Ivey MD [address] [place] [address] Bandar Casas, [facility] 420 [facility] 812 [place] [address] documented as of this encounter Visit Diagnoses Not on filedocumented in this encounter Additional Health Concerns Infection Onset Date Last Indicated Resolved Time MRSA-Contact Isolation Comment: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, chest, and elbow 02/17/2016 02/17/2016 Assessment Noted Time PHQ-9 Depression Total Score: 9 03/02/20 16 7:16 AM CDT documented as of this encounter Care Teams Finish Production Manager Relationship Specialty Start Date End Date Jairo Vasquez MD PCP - General Family Medicine - Sports Medicine 12/29/15 Kylee Dailey MD [address] [place], [place] [address]B 2A [place] [address] Internal Medicine 04/01/17 Kayode Ivey MD [address] [place] [address] 349175 Gastroenterology 04/01/17 Nicolasa Perez APRN HISTOPATH TECH [address] [place] [address] [id number] [place], [place] [phone] Nurse Practitioner Nurse Practitioner 04/28/17 Srinivas Stern PA-C [address] [place] [address] [phone] Physician Lumber Sorter Machine Physician Lumber Sorter Machine 10/02/18 Srinivas Stern PA-C [address] [place] [address] [phone] Assigned Gastroenterology Provider 07/17/22 Bandar Casas RPH [address] [address] Pharmacist Pharmacist 08/18/23 Bandar Casas RPH [address] [phone] Assigned MTM Pharmacist 08/27/23 Ayana Zhang PA-C [facility] [place] [address] Physician Lumber Sorter Machine Rheumatology 04/16/24 Srinivas Stern PA-C 909 [place], [place] [phone] Home Infusion Following Provider Gastroenterology 07/11/24 10/05/24 documented as of this encounter
--- OUTSIDE RECORDS SUMMARY | 2025-01-15 15:46 | XMS_ITS | Encounter Summary ---
Author Organization [facility] Address [address] [place] [address] Care Team Providers Care Nurse Ob Name Role Phone Jairo Vasquez MD Primary Care Provider [phone] Kylee Dailey MD Unavailable + Kayode Ivey MD Unavailable [phone] Nicolasa Perez APRN POWER SYSTEM OPERATOR Unavaila ble Srinivas Stern PA-C Unavailable +[phone] Srinivas Stern PA-C Unavailable [phone] Violet Ta [facility] Unavailable +[phone] Sue Mckeon [facility] Unavailable [phone] Karen Trinh MD Unavailable [phone] Violet Ta [facility] Unavailable [phone] Violet Ta [facility] Unavailable +[phone] Srinivas Stern PA-C Unavailable +[phone] Bandar Casas [facility] Unavailable +[phone] Bandar Casas [facility] Unavailable +[phone] Ayana Zhang PA-C Unavailable [phone] Srinivas Stern PA-C Unavailable [phone] Encounter Details Date Type Department Care Team (Late st Contact Info) Description 01/06/2021 MyC Medical Advice [facility] [address] [phone] Blanca Menezes, RN Social History Tobacco Use Types Packs/Day Years Used Date Smoking Tobacco: Never Smokeless Tobacco: Never Alcohol Use Standard Drinks/Week Comments Yes 13 (1 standard drink = 0.6 oz pu re alcohol) MONTHLY PHQ-2 Answer Date Recorded PHQ-2 Score 2 08/20/2019 Sex and Gender Information Value Date Recorded Sex Assigned at Not on file Legal Sex 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 BACK DIGGER OPERATOR Gender Identity Not on file Sexual Orientation Not on file 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 Plan of Treatment Upcoming Encounters Date Type Department Care Team (Latest Contact Info) Description 02/13/2025 3:20 PM CDT Appointment [facility] Imaging [address] [facility] [address] [place] [phone] Kayode Ivey MD [address] [place], [place] [phone] 03/07/2025 3:00 PM CDT Ancillary Procedure [address] [place] [address] Srinivas Stern PA-C [address] [place] [address] 04/24/2025 2:40 PM CDT Virtual Visit [facility] [address] [phone] Alexis Torres MD 420 [place], [place] 305[address] Srinivas Stern PA-C [address] [place] [address] 06/05/2025 3:30 PM CDT Virtual Visit [facility] MTM [address] [facility] [address] 2nd [place] [address] Kayode Ivey MD [address] [place], [place] 369555 Bandar Casas, [facility] 420 [facility] 812 [place], [place] [address] documented as of this encounter Visit Diagnoses Not on filedocumented in this encounter Additional Health Concerns Infection Onset Date Last Indicated Resolved Time MRSA-Contact Isolation Comment: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, chest, and elbow 02/17/2016 02/17/2016 Rule Out C-difficile 10/04/2023 10/05/2023 024 7:28 PM BACK DIGGER OPERATOR C-difficile 10/05/2023 10/05/2023 11/04/2023 11:3 9 PM BACK DIGGER OPERATOR Rule Out C-difficile 09/03/2024 09/04/2024 025 12:45 PM BACK DIGGER OPERATOR Assessment Noted Time PHQ-9 Depression Total Score: 9 03/02/20 16 7:16 AM CDT documented as of this encounter Care Teams Nurse Ob Relationship Specialty Start Date End Date Jairo Vasquez MD PCP - General Family Medicine - Sports Medicine 12/29/15 Kylee Dailey MD [address] [place] [address] [address] [place], [place] [phone] Internal Medicine 04/01/17 Kayode Ivey MD [address] [place] [address] [phone] Gastroenterology 04/01/17 Nicolasa Perez APRN POWER SYSTEM OPERATOR [address] [place] [address] [id number] [place] [address] Nurse Practitioner Nurse Practitioner 04/28/17 Srinivas Stern PA-C [address] [place] [address] Physician Biological Science Technician Physician Biological Science Technician 10/02/18 Srinivas Stern PA-C [address] [place] [address] [phone] Assigned Heart and Vascular Provider 11/19/20 06/27/21 Violet Ta, [facility] [address] [place] [address] 94272 Pharmacist Pharmacist 12/29/20 02/08/21 uSe Mckeon [facility] [address] [place] [address] Pharmacist Pharmacist Buffer Copper 02/09/21 06/29/22 Karen Trinh MD [address] [place] [address] 33259 Assigned Infectious Disease Provider 02/08/21 07/30/22 Violet Ta, [facility] [address] [place] [address] Assigned MTM Pharmacist 02/27/22 05/21/22 Violet Ta, [facility] [address] [place] [address] Assigned MTM Pharmacist 06/02/22 07/09/22 Srinivas Stern PA-C [address] [place] [address] [phone] Assigned Gastroenterology Provider 07/17/22 Bandar Casas RPH [address] [place] [address] [phone] Pharmacist Pharmacist 08/18/23 Bandar Casas RPH [address] [place] [address] [phone] Assigned MTM Pharmacist 08/27/23 Ayana Zhang PA-C [address] [place] [address]295 Physician Biological Science Technician Rheumatology 04/16/24 Srinivas Stern PA-C [address] [place] [address] [phone] Home Infusion Following Provider Gastroenterology 07/11/24 10/05/24 documented as of this encounter
--- OUTSIDE RECORDS SUMMARY | 2025-01-15 15:46 | XMS_ITS | Encounter Summary ---
Author Organization [facility] Address [address] [place] [address]. [place] [address] Care Team Providers Care Funeral Director'S Assistant Name Role Phone Jairo Vasquez MD Primary Care Provider [phone] Kylee Dailey MD Unavailable + Kayode Ivey MD Unavailable [phone] Nicolasa Perez APRN MARINE ENGINEERING TEACHER Unavaila ble Srinivas Stern-C Unavailable [phone] Srinivas Stern-C Unavailable [phone] Bandar Casas [facility] Unavailable [phone] Bandar Casas [facility] Unavailable [phone] Ayana Zhang-C Unavailable [phone] Srinivas Stern-C Unavailable [phone] Encounter Details Date Type Department Care Team (Late st Contact Info) Description 05/04/2023 [facility] [address] 4th [place] [address] Trisha [facility] Social History Tobacco Use Types Packs/Day Years Used Date Smoking Tobacco: Never Smokeless Tobacco: Never Alcohol Use Standard Drinks/Week Comments Yes 13 (1 standard drink = 0.6 oz pu re alcohol) MONTHLY PHQ-2 Answer Date Recorded PHQ-2 Score 0 01/18/2023 Sex and Gender Information Value Date Recorded Sex Assigned at Not on file Legal Sex 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 DROP FORGE HAND Gender Identity Not on file Sexual Orientation [...] 02/13/2025 3:20 PM CDT Appointment [facility] Imaging [address] [facility] [address] [place] [address] Kayode Ivey MD [address] [place] [address] 03/07/2025 3:00 PM CDT Ancillary Procedure [facility] [address] [facility] [address] [place] [address] Srinivas Stern PA-C [address] [place] [address] 04/24/2025 2:40 PM CDT Virtual Visit [facility] [address] 4th [place] [address] Alexis Torres MD 420 [place], [place] [phone] Srinivas Stern PA-C [address] [place] [address] 06/05/2025 3:30 PM CDT Virtual Visit [facility] GI [address] 2nd [place] [phone] Kayode Ivey MD [address] [place] [address] Augusto Bandar, [facility] 420 [facility] 812 [place] [address] documented as of this encounter Visit Diagnoses Not on filedocumented in this encounter Additional Health Concerns Infection Onset Date Last Indicated Resolved Time MRSA-Contact Isolation Comment: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, chest, and elbow 02/17/2016 02/17/2016 Rule Out C-difficile 10/04/2023 10/05/2023 024 7:28 PM DROP FORGE HAND C-difficile 10/05/2023 10/05/2023 11/04/2023 11:3 9 PM DROP FORGE HAND Rule Out C-difficile 09/03/2024 09/04/2024 025 12:45 PM DROP FORGE HAND Assessment Noted Time PHQ-9 Depression Total Score: 9 03/02/20 16 7:16 AM CDT documented as of this encounter Care Teams Funeral Director'S Assistant Relationship Specialty Start Date End Date Jairo Vasquez MD PCP - General Family Medicine - Sports Medicine 12/29/15 Kylee Dailey MD [address] [place], [place] [address]B [address] [place] [address] Internal Medicine 04/01/17 Kayode Ivey MD [address] [place] [address] Gastroenterology 04/01/17 Nicolasa Perez APRN MARINE ENGINEERING TEACHER [address] [place], [place] [address] [place] [address] Nurse Practitioner Nurse Practitioner 04/28/17 Srinivas Stern PA-C [address] [place] [address] Physician Military Pilot Physician Military Pilot 10/02/18 Srinivas Stern PA-C [address] [place] [address] Assigned Gastroenterology Provider 07/17/22 Bandar Casas RPH [address] [place] [address] 114805 Pharmacist Pharmacist 08/18/23 Bandar Casas RPH [address] [place] [address] [phone] Assigned MTM Pharmacist 08/27/23 Ayana Zhang PA-C [address] [place] [address]146 Physician Military Pilot Rheumatology 04/16/24 Srinivas Stern PA-C [address] [place] [address] Home Infusion Following Provider Gastroenterology 07/11/24 10/05/24 documented as of this encounter
--- OUTSIDE RECORDS SUMMARY | 2025-01-15 15:46 | XMS_ITS | Encounter Summary ---
Author Organization [facility] Address [address] [place] [address]. [place] [address] Care Team Providers Care Filler Shaker Name Role Phone Jairo Vasquez MD Primary Care Provider [phone] Kylee Dailey MD Unavailable + Kayode Ivey MD Unavailable [phone] Nicolasa Perez APRN EMBOSSING MACHINE OPERATOR HELPER Unavaila ble Srinivas Stern-C Unavailable Srinivas Stern-C Unavailable [phone] Bandar Casas [facility] Unavailable [phone] Bandar Casas [facility] Unavailable Ayana Zhang-C Unavailable [phone] Srinivas Stern-C Unavailable [phone] Encounter Details Date Type Department Care Team (Late st Contact Info) Description 09/26/2024 [facility] Medical Advice 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 Plan of Treatment Upcoming Encounters Date Type Department Care Team (Latest Contact Info) Description 02/13/2025 3:20 PM CDT Appointment [facility] Imaging [address] [facility] [address] [place] [address] Kayode Ivey MD [address] [place] [address] 03/07/2025 3:00 PM CDT Ancillary Procedure [facility] [address] [facility] [address] [place] [address] Srinivas Stern PA-C [address] [place] [address] 04/24/2025 2:40 PM CDT Virtual Visit [facility] [address]th [place] [address] Alexis Torres MD 420 [place], [place] [phone] Srinivas Stern PA-C [address] [place] [address] 06/05/2025 3:30 PM CDT Virtual Visit [facility] GI [address]nd [place] [phone] Kayode Ivey MD [address] [place] [address] Bandar Casas, [facility] 420 [facility] 812 [place] [address] documented as of this encounter Visit Diagnoses Not on filedocumented in this encounter Additional Health Concerns Infection Onset Date Last Indicated Resolved Time MRSA-Contact Isolation Comment: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, chest, and elbow 02/17/2016 02/17/2016 Assessment Noted Time PHQ-9 Depression Total Score: 9 03/02/20 16 7:16 AM CDT documented as of this encounter Care Teams Filler Shaker Relationship Specialty Start Date End Date Jairo Vasquez MD PCP - General Family Medicine - Sports Medicine 12/29/15 Kylee Dailey MD [address] [place], [place] [address]B 2A [place] [address] Internal Medicine 04/01/17 Kayode Ivey MD [address] [place] [address] [phone] Gastroenterology 04/01/17 Nicolasa Perez APRN EMBOSSING MACHINE OPERATOR HELPER [address] [place] [address] [id number] [place], [place] 849335 Nurse Practitioner Nurse Practitioner 04/28/17 Srinivas Stern PA-C [address] [place] [address] [phone] Physician Customer Engagement Manager Physician Customer Engagement Manager 10/02/18 Srinivas Stern PA-C [address] [place] [address] [phone] Assigned Gastroenterology Provider 07/17/22 Bandar Casas R[facility] [address] [address] Pharmacist Pharmacist 08/18/23 Bandar Casas [facility] [address] [phone] Assigned MTM Pharmacist 08/27/23 Ayana Zhang PA-C [facility] [place] [address] Physician Customer Engagement Manager Rheumatology 04/16/24 Srinivas Stern PA-C 909 [place], [place] [phone] Home Infusion Following Provider Gastroenterology 07/11/24 10/05/24 documented as of this encounter
--- OUTSIDE RECORDS SUMMARY | 2025-01-15 15:46 | XMS_ITS | Encounter Summary ---
Author Organization [facility] Address [address] [place] [address] Care Team Providers Care Overhead Distribution Engineer Name Role Phone Jairo Vasquez MD Primary Care Provider [phone] Kylee Dailey MD Unavailable + Kayode Ivey MD Unavailable [phone] Nicolasa Perez APRN CUSTOMER CARE COORDINATOR Unavaila ble Srinivas Stern PA-C Unavailable [phone] Srinivas Stern PA-C Unavailable [phone] Violet Ta [facility] Unavailable +[phone] Sue Mckeon [facility] Unavailable [phone] Karen Trinh MD Unavailable [phone] Violet Ta [facility] Unavailable +[phone] Violet Ta [facility] Unavailable +[phone] Srinivas Stern PA-C Unavailable [phone] Bandar Casas [facility] Unavailable [phone] Bandar Casas [facility] Unavailable [phone] Ayana Zhang PA-C Unavailable [phone] Srinivas Stern PA-C Unavailable [phone] Encounter Details Date Type Department Care Team (Late st Contact Info) Description 01/12/2021 MyC Medical Advice [facility] G[facility]ology Clinic [address] [phone] Kayode Ivey MD [address] [place] [address] [phone] Social History Tobacco Use Types Packs/Day Years Used Date Smoking Tobacco: Never Smokeless Tobacco: Never Alcohol Use Standard Drinks/Week Comments Yes 13 (1 standard drink = 0.6 oz pu re alcohol) MONTHLY PHQ-2 Answer Date Recorded PHQ-2 Score 2 08/20/2019 Sex and Gender Information Value Date Recorded Sex Assigned at Not on file Legal Sex 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 TITLE CURATIVE SPECIALIST Gender Identity Not on file Sexual [...] Info) Description 02/13/2025 3:20 PM CDT Appointment [facility] Imaging [address] [facility] [address] [place] [address] Kayode Ivey MD [address] [place] [address] 855615 03/07/2025 3:00 PM CDT Ancillary Procedure [address] [place] [address] Srinivas Stern PA-C [address] [place] [address] [phone] 04/24/2025 2:40 PM CDT Virtual Visit [facility] Clinic [address] [phone] Alexis Torres MD 420 [place], [place] 397[address] Srinivas Stern PA-C 909 [place], [place] [phone] 06/05/2025 3:30 PM CDT Virtual Visit [facility] [address] [facility] 2nd [place] [phone] Kayode Ivey MD 516 [place] [address] Bandar Casas [facility] 420 [facility] 812 [place], [place] 528025 documented as of this encounter Visit Diagnoses Not on filedocumented in this encounter Additional Health Concerns Infection Onset Date Last Indicated Resolved Time MRSA-Contact Isolation Comment: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, chest, and elbow 02/17/2016 02/17/2016 Rule Out C-difficile 10/04/2023 10/05/2023 024 7:28 PM TITLE CURATIVE SPECIALIST C-difficile 10/05/2023 10/05/2023 11/04/2023 11:3 9 PM TITLE CURATIVE SPECIALIST Rule Out C-difficile 09/03/2024 09/04/2024 025 12:45 PM TITLE CURATIVE SPECIALIST Assessment Noted Time PHQ-9 Depression Total Score: 9 03/02/20 16 7:16 AM CDT documented as of this encounter Care Teams Overhead Distribution Engineer Relationship Specialty Start Date End Date Jairo Vasquez MD PCP - General Family Medicine - Sports Medicine 12/29/15 Kylee Dailey MD 6 [facility] [address] [place], [place] 150935 Internal Medicine 04/01/17 Kayode Ivey MD [address] [place] [address] [phone] Gastroenterology 04/01/17 Nicolasa Perez APRN CUSTOMER CARE COORDINATOR [address] [place] [address] [id number] [place], [place] [phone] Nurse Practitioner Nurse Practitioner 04/28/17 Srinivas Stern PA-C [address] [place] [address] [phone] Physician Darkroom Technician Physician Darkroom Technician 10/02/18 Srinivas Stern PA-C [address] [place] [address] [phone] Assigned Heart and Vascular Provider 11/19/20 06/27/21 Violet Ta [facility] [address] [place] [address] Pharmacist Pharmacist 12/29/20 02/08/21 Sue Mckeon [facility] [address] [place] [address] [phone] Pharmacist Pharmacist Learning And Development Manager 02/09/21 06/29/22 Karen Trinh MD [address] [place] [address] [phone] Assigned Infectious Disease Provider 02/08/21 07/30/22 Violet Ta [facility] [address] [place] [address] Assigned MTM Pharmacist 02/27/22 05/21/22 Violet Ta [facility] [address] [place] [address] Assigned MTM Pharmacist 06/02/22 07/09/22 Srinivas Stern PA-C 909 [place] [address] Assigned Gastroenterology Provider 07/17/22 Bandar Casas [facility] [address] [address] Pharmacist Pharmacist 08/18/23 Bandar Casas [facility] [address] [address] Assigned MTM Pharmacist 08/27/23 Ayana Zhang PA-C 5200 [place] [address] Physician Darkroom Technician Rheumatology 04/16/24 Srinivas Stern PA-C 909 [place], [place] 040175 Home Infusion Following Provider Gastroenterology 07/11/24 10/05/24 documented as of this encounter
--- OUTSIDE RECORDS SUMMARY | 2025-01-15 15:46 | XMS_ITS | Encounter Summary ---
Author Organization [place] Address [address] [place] [address] Care Team Providers Care Animal Science Professor Name Role Phone Jairo Vasquez MD Primary Care Provider [phone] Kylee Dailey MD Unavailable + Kayode Ivey MD Unavailable +- [phone] Nicolasa Perez APRN RACECOURSE BARRIER ATTENDANT Unavaila ble Loyda Dickey RN Unavailable +[phone] Srinivas Stern PA-C Unavailable +[phone] Srinivas Stern PA-C Unavailable +[phone] Violet Ta [facility] Unavailable +[phone] Sue Mckeon [facility] Unavailable +[phone] Karen Trinh MD Unavailable +[phone] Violet Ta [facility] Unavailable +[phone] Violet Ta [facility] Unavailable +[phone] Srinivas Stern PA-C Unavailable +[phone] Bandar Casas [facility] Unavailable +[phone] Bandar Casas [facility] Unavailable Ayana Zhang PA-C Unavailable +[phone] Srinivas Stern PA-C Unavailable Encounter Details Date Type Department Care Team (Late st Contact Info) Description 03/29/2018 MyC Medical Advice 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 Plan of Treatment Upcoming Encounters Date Type Department Care Team (Latest Contact Info) Description 02/13/2025 3:20 PM CDT Appointment [facility] Imaging [address] [facility] [address] [place] [phone] Kayode Ivey MD [address] [place] [address] 03/07/2025 3:00 PM CDT Ancillary Procedure [address] [place] [address] Srinivas Stern PA-C [address] [place] [address] 04/24/2025 2:40 PM CDT Virtual Visit [facility] Gastroenterology Clinic [address] [address] Alexis Torres MD 420 [place], [place] [phone] Srinivas Stern PA-C [address] [place] [address] 06/05/2025 3:30 PM CDT Virtual Visit [facility] [address] [facility] [address] 2nd [place] [address] Kayode Ivey MD [address] [place], [place] 089325 Bandar Casas, [facility] 420 [facility] 812 [place], [place] 597875 documented as of this encounter Visit Diagnoses Not on filedocumented in this encounter Additional Health Concerns Infection Onset Date Last Indicated Resolved Time MRSA-Contact Isolation Comment: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, chest, and elbow 02/17/2016 02/17/2016 Rule Out C-difficile 10/04/2023 10/05/2023 024 7:28 PM SUPERINTENDENT SYSTEM OPERATION C-difficile 10/05/2023 10/05/2023 11/04/2023 11:3 9 PM SUPERINTENDENT SYSTEM OPERATION Rule Out C-difficile 09/03/2024 09/04/2024 025 12:45 PM SUPERINTENDENT SYSTEM OPERATION Assessment Noted Time PHQ-9 Depression Total Score: 9 03/02/20 16 7:16 AM CDT documented as of this encounter Care Teams Animal Science Professor Relationship Specialty Start Date End Date Jairo Vasquez MD PCP - General Family Medicine - Sports Medicine 12/29/15 Kylee Dailey MD [address] [place] [address] [address] [place], [place] 250[address] Internal Medicine 04/01/17 Kayode Ivey MD [address] [place] [address] [phone] Gastroenterology 04/01/17 Nicolasa Perez APRN RACECOURSE BARRIER ATTENDANT [address] [place] [address] [id number] [place] [address] Nurse Practitioner Nurse Practitioner 04/28/17 Loyda Dickey, RN Nurse Coordinator Neurology 05/26/17 02/26/19 Srinivas Stern PA-C [address] [place] [address] Physician Mining Plant Operator Physician Mining Plant Operator 10/02/18 Srinivas Stern PA-C [address] [place] [address] Assigned Heart and Vascular Provider 11/19/20 06/27/21 [facility] [address] [place] [address] Pharmacist Pharmacist 12/29/20 02/08/21 Sue Mckeon [facility] [address] [place] [address] Pharmacist Pharmacist Liquid Compounder 02/09/21 06/29/22 Karen Trinh MD [address] [place] [address] Assigned Infectious Disease Provider 02/08/21 07/30/22 Violet Ta, [facility] [address] [place] [address] [address] [place] [address] Assigned MTM Pharmacist 02/27/22 05/21/22 Violet Ta [facility] 480 [facility] [address] [place] [address] Assigned MTM Pharmacist 06/02/22 07/09/22 Srinivas Stern PA-C 909 [place] [address] Assigned Gastroenterology Provider 07/17/22 Bandar Casas [facility] [address] [phone] Pharmacist Pharmacist 08/18/23 Bandar Casas [facility] [address] [place] [address] Assigned MTM Pharmacist 08/27/23 Ayana Zhang PA-C 5200 [place] [address] Physician Mining Plant Operator Rheumatology 04/16/24 Srinivas Stern PA-C 909 [place] [address] Home Infusion Following Provider Gastroenterology 07/11/24 10/05/24 documented as of this encounter
--- OUTSIDE RECORDS SUMMARY | 2025-01-15 15:46 | XMS_ITS | Encounter Summary ---
Author Organization [facility] Address [address] [place] [address]. [place] [address] Care Team Providers Care Mental Health Orderly Name Role Phone Jairo Vasquez MD Primary Care Provider [phone] Kylee Dailey MD Unavailable + Kayode Ivey MD Unavailable [phone] Nicolasa Perez APRN LAY HEALTH ADVOCATE Unavaila ble Srinivas Stern-C Unavailable Srinivas Stern-C Unavailable Bandar Casas [facility] Unavailable Bandar Casas [facility] Unavailable Ayana Zhang-C Unavailable Srinivas Stern-C Unavailable [phone] Encounter Details Date Type Department Care Team (Late st Contact Info) Description 05/04/2023 [facility] Gastroenterology Clinic [address] 4th [place] [address] Trisha [facility] Social History Tobacco Use Types Packs/Day Years Used Date Smoking Tobacco: Never Smokeless Tobacco: Never Alcohol Use Standard Drinks/Week Comments Yes 13 (1 standard drink = 0.6 oz pu re alcohol) MONTHLY PHQ-2 Answer Date Recorded PHQ-2 Score 0 01/18/2023 Sex and Gender Information Value Date Recorded Sex Assigned at Not on file Legal Sex 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 CELL CHANGER Gender Identity Not on file Sexual Orientation [...] Appointment [facility] Imaging [address] [facility] [address] [place] [address] Kayode Ivey MD [address] [place] [address] 03/07/2025 3:00 PM CDT Ancillary Procedure [facility] [address] [facility] [address] [place] [address] Srinivas Stern PA-C [address] [place] [address] 04/24/2025 2:40 PM CDT Virtual Visit [facility] Gastroenterology Clinic [address] 4th [place] [address] Alexis Torres MD 420 [place], [place] [phone] Srinivas Stern PA-C [address] [place] [address] 06/05/2025 3:30 PM CDT Virtual Visit [facility] GI [address] 2nd [place] [phone] Kayode Ivey MD [address] [place] [address] Augusto Bandar, 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, chest, and elbow 02/17/2016 02/17/2016 Rule Out C-difficile 10/04/2023 10/05/2023 024 7:28 PM CELL CHANGER C-difficile 10/05/2023 10/05/2023 11/04/2023 11:3 9 PM CELL CHANGER Rule Out C-difficile 09/03/2024 09/04/2024 025 12:45 PM CELL CHANGER Assessment Noted Time PHQ-9 Depression Total Score: 9 03/02/20 16 7:16 AM CDT documented as of this encounter Care Teams Mental Health Orderly Relationship Specialty Start Date End Date Jairo Vasquez MD PCP - General Family Medicine - Sports Medicine 12/29/15 Kylee Dailey MD [address] [place], [place] [address]B 2[address] [place] [address] Internal Medicine 04/01/17 Kayode Ivey MD [address] [place] [address] Gastroenterology 04/01/17 Nicolasa Perez APRN LAY HEALTH ADVOCATE [address] [place] [address] [address] Nurse Practitioner Nurse Practitioner 04/28/17 Srinivas Stern PA-C [address] [place] [address] Physician Roll Tester Physician Roll Tester 10/02/18 Srinivas Stern PA-C [address] [place] [address] Assigned Gastroenterology Provider 07/17/22 Bandar Casas [facility] [address] [place] [address] [phone] Pharmacist Pharmacist 08/18/23 Bandar Casas [facility] [address] [place] [address] 560555 Assigned MTM Pharmacist 08/27/23 Ayana Zhang PA-C [address] [place] [address] Physician Roll Tester Rheumatology 04/16/24 Srinivas Stern PA-C [address] [place] [address] Home Infusion Following Provider Gastroenterology 07/11/24 10/05/24 documented as of this encounter
--- OUTSIDE RECORDS SUMMARY | 2025-01-15 15:46 | XMS_ITS | Encounter Summary ---
Author Organization [facility] Address [address] [place] [address] Care Team Providers Care Msws Name Role Phone Jairo Vasquez MD Primary Care Provider [phone] Kylee Dailey MD Unavailable + Kayode Ivey MD Unavailable [phone] Nicolasa Perez APRN MATERIAL MANAGER Unavaila ble Loyda Dickey RN Unavailable [phone] Srinivas Stern PA-C Unavailable [phone] Srinivas Stern PA-C Unavailable +[phone] Violet Ta [facility] Unavailable +[phone] Sue Mckeon [facility] Unavailable +[phone] Karen Trinh MD Unavailable +[phone] Violet Ta [facility] Unavailable +[phone] Violet Ta [facility] Unavailable +[phone] Srinivas Stern PA-C Unavailable +[phone] Bandar Casas [facility] Unavailable +[phone] Bandar Casas [facility] Unavailable Ayana Zhang PA-C Unavailable [phone] Srinivas Stern PA-C Unavailable [phone] Encounter Details Date Type Department Care Team (Late st Contact Info) Description 01/21/2019 MyC Medical Advice [facility] Gastroenterology and IBD Clinic [address] [place] [address] Kayode Ivey MD [address] [place] [address] Social History Tobacco Use Types Packs/Day Years Used Date Smoking Tobacco: Never Smokeless Tobacco: Never Alcohol Use Standard Drinks/Week Comments Yes 13 (1 standard drink = 0.6 oz pu re alcohol) MONTHLY Sex and Gender Information Value Date Recorded Sex Assigned at Not on file Legal Sex 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 MILKER MACHINE Gender Identity Not on file Sexual Orientation Not on file 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 Plan of Treatment Upcoming Encounters Date Type Department Care Team (Latest Contact Info) Description 02/13/2025 3:20 PM CDT Appointment [facility] Imaging [address] [facility] [address] [place] [phone] Kayode Ivey MD [address] [place] [address] 03/07/2025 3:00 PM CDT Ancillary Procedure [address] [place] [address] Srinivas Stern PA-C 9 [place], [place] 9456[address] 04/24/2025 2:40 PM CDT Virtual Visit [facility] Gastroenterology Clinic [address] [address] Alexis Torres MD 420 [place] [address] Srinivas Stern PA-C 909 [place], [place] [phone] 06/05/2025 3:30 PM CDT Virtual Visit [facility] 909 [facility] 2nd [place] [phone] Kayode Ivey MD [address] [place] [address] Bandar Casas, [facility] 420 [facility] 812 [place] [address] documented as of this encounter Visit Diagnoses Not on filedocumented in this encounter Additional Health Concerns Infection Onset Date Last Indicated Resolved Time MRSA-Contact Isolation Comment: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, chest, and elbow 02/17/2016 02/17/2016 Rule Out C-difficile 10/04/2023 10/05/2023 024 7:28 PM MILKER MACHINE C-difficile 10/05/2023 10/05/2023 11/04/2023 11:3 9 PM MILKER MACHINE Rule Out C-difficile 09/03/2024 09/04/2024 025 12:45 PM MILKER MACHINE Assessment Noted Time PHQ-9 Depression Total Score: 9 03/02/20 16 7:16 AM CDT documented as of this encounter Care Teams Msws Relationship Specialty Start Date End Date Jairo Vasquez MD PCP - General Family Medicine - Sports Medicine 12/29/15 Kylee Dailey MD [address] [place] [address] 2A [place], [place] [phone] Internal Medicine 04/01/17 Kayode Ivey MD [address] [place] [address] Gastroenterology 04/01/17 Nicolasa Perez APRN MATERIAL MANAGER [address] [place] [address] [id number] [place], [place] 223[address] Nurse Practitioner Nurse Practitioner 04/28/17 Loyda Dickey RN Nurse Coordinator Neurology 05/26/17 02/26/19 Srinivas Stern PA-C [address] [place] [address] Physician Case Mgr Physician Case Mgr 10/02/18 Srinivas Stern PA-C [address] [place] [address] Assigned Heart and Vascular Provider 11/19/20 06/27/21 Violet Ta [facility] [address] [place] [address] Pharmacist Pharmacist 12/29/20 02/08/21 Sue Mckeon [facility] [address] [place] [address] [phone] Pharmacist Pharmacist Manager Support Services 02/09/21 06/29/22 Karen Trinh MD [address] [place] [address] [phone] Assigned Infectious Disease Provider 02/08/21 07/30/22 Violet Ta [facility] [address] [place] [address] 96 [place], [place] [phone] Assigned MTM Pharmacist 02/27/22 05/21/22 Violet Ta [facility] 480 [facility] [address] [place] [address] Assigned MTM Pharmacist 06/02/22 07/09/22 Srinivas Stern PA-C [address] [place] [address] Assigned Gastroenterology Provider 07/17/22 Bandar Casas [facility] 420 [facility] 812 [place] [address] Pharmacist Pharmacist 08/18/23 Bandar Casas RP [address] [address] Assigned MTM Pharmacist 08/27/23 Ayana Zhang PA-C [address] [place] [address] Physician Case Mgr Rheumatology 04/16/24 Srinivas Stern PA-C 909 [place] [address] Home Infusion Following Provider Gastroenterology 07/11/24 10/05/24 documented as of this encounter
--- OUTSIDE RECORDS SUMMARY | 2025-01-15 15:46 | XMS_ITS | Encounter Summary ---
Author Organization [facility] Address [address] [place] [address] Care Team Providers Care Computer Systems Information Director Name Role Phone Jairo Vasquez MD Primary Care Provider [phone] Kylee Dailey MD Unavailable + Kayode Ivey MD Unavailable [phone] Nicolasa Perez APRN SENIOR BIOSTATISTICIAN Unavaila ble Loyda Dickey RN Unavailable +[phone] Srinivas Stern PA-C Unavailable +[phone] Srinivas Stern PA-C Unavailable +[phone] Violet Ta [facility] Unavailable +[phone] Sue Mckeon [facility] Unavailable +[phone] Karen Trinh MD Unavailable +[phone] Violet Ta [facility] Unavailable +[phone] Violet Ta [facility] Unavailable +[phone] Srinivas Stern PA-C Unavailable +[phone] Bandar Casas [facility] Unavailable +[phone] Bandar Casas [facility] Unavailable Ayana Zhang PA-C Unavailable [phone] Srinivas Stern PA-C Unavailable Reason for Visit * Reason Onset Date Comments Prior Auth - Medication 01/24/2019 ERRONEOU S ENTRY, DUPLICATE REQUEST Encounter Details Date Type Department Care Team (Late st Contact Info) Description 01/24/2019 Telephone [facility] Gastroenterology and IBD Clinic [address] 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 No / Unsure 06/07/2023 10:23 AM CDT documented as of this encounter Miscellaneous Notes * Telephone Encounter - Lilibeth Davenport - 01/24/2019 11:42 AM CDT Images from the original note were not included. Central Prior Authorization Team documented in this encounter Plan of Treatment Upcoming Encounters Date Type Department Care Team (Latest Contact Info) Description 02/13/2025 3:20 PM CDT Appointment [facility] Imaging [address] [facility] [address] [place] [address] Kayode Ivey MD [address] [place] [address] [phone] 03/07/2025 3:00 PM CDT Ancillary Procedure [address] [place] [address] Srinivas Stern PA-C [address] [place] [address] 786215 04/24/2025 2:40 PM CDT Virtual Visit [facility] Gastroenterology Clinic [address] 4th [place] [address] Alexis Torres MD 420 [place], [place] 875005 Srinivas Stern PA-C [address] [place] [address] 205835 06/05/2025 3:30 PM CDT Virtual Visit [facility] GI MTM [address] [facility] 2nd [place] [address] Kayode Ivey MD [address] [place] [address] 122335 Bandar Casas [facility] 420 [facility] 812 [place], [place] 484015 documented as of this encounter Visit Diagnoses Not on filedocumented in this encounter Additional Health Concerns Infection Onset Date Last Indicated Resolved Time MRSA-Contact Isolation Comment: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, chest, and elbow 02/17/2016 02/17/2016 Rule Out C-difficile 10/04/2023 10/05/2023 024 7:28 PM CANCER CENTER DIRECTOR C-difficile 10/05/2023 10/05/2023 11/04/2023 11:3 9 PM CANCER CENTER DIRECTOR Rule Out C-difficile 09/03/2024 09/04/2024 025 12:45 PM CANCER CENTER DIRECTOR Assessment Noted Time PHQ-9 Depression Total Score: 9 03/02/20 16 7:16 AM CDT documented as of this encounter Care Teams Computer Systems Information Director Relationship Specialty Start Date End Date Jairo Vasquez MD PCP - General Family Medicine - Sports Medicine 12/29/15 Kylee Dailey MD [address] 895415 Internal Medicine 04/01/17 Kayode Ivey MD 6 [place], [place] [address] Gastroenterology 04/01/17 Nicolasa Perez, TRANSMISSION AND PROTECTION ENGINEER SENIOR BIOSTATISTICIAN [address] [place], [place] [id number] [place], [place] [address] Nurse Practitioner Nurse Practitioner 04/28/17 Loyda Dickey, BONNIE Nurse Coordinator Neurology 05/26/17 02/26/19 Srinivas Stern PA-C [address] [place] [address] [phone] Physician Power Washer Physician Power Washer 10/02/18 Srinivas Stern PA-C [address] [place] [address] 584715 Assigned Heart and Vascular Provider 11/19/20 06/27/21 [facility] [address] [place] [address] Pharmacist Pharmacist 12/29/20 02/08/21 Sue Mckeon [facility] [address] [place] [address] Pharmacist Pharmacist Slide Developer 02/09/21 06/29/22 Karen Trinh MD [address] [place] [address] Assigned Infectious Disease Provider 02/08/21 07/30/22 [facility] [address] [place], [place] [phone] Assigned MTM Pharmacist 02/27/22 05/21/22 [facility] [address] [place], [place] [phone] Assigned MTM Pharmacist 06/02/22 07/09/22 Srinivas Stern PA-C [address] [place] [address] 193285 Assigned Gastroenterology Provider 07/17/22 Bandar Casas, [facility] [address] [address] Pharmacist Pharmacist 08/18/23 Bandar Casas [facility] [address] [address] Assigned MTM Pharmacist 08/27/23 Ayana Zhang PA-C 5200 [place] [address] Physician Power Washer Rheumatology 04/16/24 Srinivas Stern PA-C 909 [place] [address] Home Infusion Following Provider Gastroenterology 07/11/24 10/05/24 documented as of this encounter
--- OUTSIDE RECORDS SUMMARY | 2025-01-15 15:46 | XMS_ITS | Encounter Summary ---
Author Organization [place] Address [address] [place] [address]. [place] [address] Care Team Providers Care Studio Camera Operator Name Role Phone Jairo Vasquez MD Primary Care Provider Kylee Dailey MD Unavailable + Kayode Ivey MD Unavailable [phone] Nicolasa Perez APRN CONSUMER EXPERIENCE CONSULTANT Unavaila ble Srinivas Stern-C Unavailable [phone] Srinivas Stern-C Unavailable Bandar Casas [facility] Unavailable Bandar Casas [facility] Unavailable Ayana Zhang-C Unavailable Reason for Visit * Reason Onset Date Comments entyvio pen cost (resolved) 10/19/2024 Encounter Details Date Type Department Care Team (Late st Contact Info) Description 10/19/2024 [facility] [place] [place] Medical Advice [facility] [address] [facility] [address] 2nd [place] [address] Bandar Casas, [facility] 420 [facility] 812 [place] [address] entyvio pen cost (resolved) Social History Tobacco Use Types Packs/Day Years Used Date Smoking Tobacco: Never Smokeless Tobacco: Never Alcohol Use Standard Drinks/Week Comments Yes 13 (1 standard drink = 0.6 oz pu re alcohol) MONTHLY PHQ-2 Answer Date Recorded PHQ-2 Total Score (Adult) - Positive if 3 or more points; Administer PHQ-9 if positive 1 10/23/2024 Adolescent Education Answer Date Record ed Getting School Help Needed Not on file 05/28 Sex and Gender Information Value Date Recorded Sex Assigned at Not on file Legal Sex 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 RIB CLOTH KNITTER Gender Identity Not on file Sexual Orientation Not on file 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 He was able to get the Entyvio pen copay card sorted out. He is waiting on administering it as he is still concerned about his joint pain, fatigue and other symptoms. Heis undergoing bloodwork and diagnostic workup with a Rheumatology office. Expect results next week.I discussed that we overall have a low suspicion that Entyvio is causing his symptoms and from our p erspective he does not have to wait for results, he voices understanding but will continue to wait at this time. Denies any barriers/access issues or further medication questions. Kennedy Casas, PharmD, BCPS [facility] Pharmacist [facility] Gastroenterology q CLOTH KNITTER documented in this encounter Plan of Treatment Upcoming Encounters Date Type Department Care Team (Latest Contact Info) Description 02/13/2025 3:20 PM CDT Appointment [facility] Imaging [address] [facility] [address] [place] [address] Kayode Ivey MD [address] [place] [address] [phone] 03/07/2025 3:00 PM CDT Ancillary Procedure [address] [place] [address] Srinivas Stern PA-C [address] [place] [address] [id number] 04/24/2025 2:40 PM CDT Virtual Visit [facility] Gastroenterology Clinic [address] 4th [place] [phone] Alexis Torers MD 420 [place], [place] 6[address]455 Srinivas Stern PA-C [address] [place] [address] [phone] 06/05/2025 3:30 PM CDT Virtual Visit [facility] 2nd [place] [phone] Kayode Ivey MD [address] [place] [address] 110355 Bandar Casas [facility] 420 [facility] 812 [place], [place] 824925 documented as of this encounter Visit Diagnoses Not on filedocumented in this encounter Additional Health Concerns Infection Onset Date Last Indicated Resolved Time MRSA-Contact Isolation Comment: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, chest, and elbow 02/17/2016 02/17/2016 Assessment Noted Time PHQ-9 Depression Total Score: 9 03/02/20 16 7:16 AM CDT documented as of this encounter Care Teams Studio Camera Operator Relationship Specialty Start Date End Date Jairo Vasquez MD PCP - General Family Medicine - Sports Medicine 12/29/15 Kylee Dailey MD [address] [place], [place] [address]B 2A [place], [place] [phone] Internal Medicine 04/01/17 Kayode Ivey MD 6 [place], [place] 210305 Gastroenterology 04/01/17 Nicolasa Perez APRN CONSUMER EXPERIENCE CONSULTANT [address] [place] [address] [id number] [place], [place] [phone] Nurse Practitioner Nurse Practitioner 04/28/17 Srinivas Stern PA-C [address] [place] [address] [id number] Physician Other Wood Processing Machine Operator Physician Other Wood Processing Machine Operator 10/02/18 Srinivas Stern PA-C [address] [place] [address] [phone] Assigned Gastroenterology Provider 07/17/22 Bandar Casas RPH 420 [facility] 812 [place] [address] Pharmacist Pharmacist 08/18/23 Bandar Casas RPH [address] [facility] 812 [place] [address] Assigned MTM Pharmacist 08/27/23 Ayana Zhang PA-C 5200 [place] [address] Physician Other Wood Processing Machine Operator Rheumatology 04/16/24 documented as of this encounter
--- OUTSIDE RECORDS SUMMARY | 2025-01-15 15:47 | XMS_ITS | Encounter Summary ---
Author Organization [place] Address [address] [place] [address] Care Team Providers Care Wire Web Worker Name Role Phone Jairo Vasquez MD Primary Care Provider [phone] Kylee Dailey MD Unavailable + Kayode Ivey MD Unavailable +[phone] Nicolasa Perez APRN RFID DEVELOPER Unavaila ble Loyda Dickey RN Unavailable +[phone] Srinivas Stern PA-C Unavailable +[phone] Srinivas Stern PA-C Unavailable +[phone] Violet Ta [facility] Unavailable +[phone] Sue Mckeon [facility] Unavailable [phone] Karen Trinh MD Unavailable +[phone] Violet Ta [facility] Unavailable +[phone] Violet Ta [facility] Unavailable +[phone] Srinivas Stern PA-C Unavailable +[phone] Bandar Casas [facility] Unavailable [phone] Bandar Casas [facility] Unavailable +[phone] Ayana Zhang PA-C Unavailable +[phone] Srinivas Stern PA-C Unavailable [phone] Encounter Details Date Type Department Care Team (Late st Contact Info) Description 10/10/2017 MyC Medical Advice [facility] Gastroenterology and IBD Clinic [address] [place] [address] Kayode Ivey MD 6 [place], [place] [phone] Social History Tobacco Use Types Packs/Day Years Used Date Smoking Tobacco: Never Smokeless Tobacco: Never Alcohol Use Standard Drinks/Week Comments Yes 13 (1 standard drink = 0.6 oz pu re alcohol) MONTHLY Sex and Gender Information Value Date Recorded Sex Assigned at Not on file Legal Sex 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 FLIGHT SURGEON Gender Identity Not on file Sexual Orientation Not on file 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 Plan of Treatment Upcoming Encounters Date Type Department Care Team (Latest Contact Info) Description 02/13/2025 3:20 PM CDT Appointment [facility] Imaging [address] [facility] [address] [place] [phone] Kayode Ivey MD 6 [place] [address] 03/07/2025 3:00 PM CDT Ancillary Procedure [address] [place] [address] Srinivas Stern PA-C 9 [place], [place] 2567[address] 04/24/2025 2:40 PM CDT Virtual Visit [facility] Gastroenterology Clinic [address] [address] Alexis Torres MD 420 [place] [address] Srinivas Stern PA-C 909 [place], [place] [phone] 06/05/2025 3:30 PM CDT Virtual Visit [facility] 909 [facility] 2nd [place] [phone] Kayode Ivey MD 516 [place] [address] Bandar Casas, [facility] 420 [facility] 812 [place] [address] documented as of this encounter Visit Diagnoses Not on filedocumented in this encounter Additional Health Concerns Infection Onset Date Last Indicated Resolved Time MRSA-Contact Isolation Comment: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, chest, and elbow 02/17/2016 02/17/2016 Rule Out C-difficile 10/04/2023 10/05/2023 024 7:28 PM FLIGHT SURGEON C-difficile 10/05/2023 10/05/2023 11/04/2023 11:3 9 PM FLIGHT SURGEON Rule Out C-difficile 09/03/2024 09/04/2024 025 12:45 PM FLIGHT SURGEON Assessment Noted Time PHQ-9 Depression Total Score: 9 03/02/20 16 7:16 AM CDT documented as of this encounter Care Teams Wire Web Worker Relationship Specialty Start Date End Date Jairo Vasquez MD PCP - General Family Medicine - Sports Medicine 12/29/15 Kylee Dailey MD [address] [place] [address] 2A [place], [place] [phone] Internal Medicine 04/01/17 Kayode Ivey MD [address] [place] [address] Gastroenterology 04/01/17 Nicolasa Perez APRN RFID DEVELOPER [address] [place] [address] [id number] [place], [place] 7[address] Nurse Practitioner Nurse Practitioner 04/28/17 Loyda Dickey RN Nurse Coordinator Neurology 05/26/17 02/26/19 Srinivas Stern PA-C [address] [place] [address] Physician Enrollment Coordinator Physician Enrollment Coordinator 10/02/18 Srinivas Stern PA-C [address] [place] [address] Assigned Heart and Vascular Provider 11/19/20 06/27/21 Violet Ta [facility] [address] [place] [address] Pharmacist Pharmacist 12/29/20 02/08/21 Sue Mckeon [facility] [address] [place] [address] [phone] Pharmacist Pharmacist Spot Worker 02/09/21 06/29/22 Karen Trinh MD [address] [place] [address] [phone] Assigned Infectious Disease Provider 02/08/21 07/30/22 Violet Ta [facility] [address] [place] [address] 96 [place], [place] [phone] Assigned MTM Pharmacist 02/27/22 05/21/22 Violet Ta [facility] [address] [facility] [address] [place] [address] Assigned MTM Pharmacist 06/02/22 07/09/22 Srinivas Stern PA-C [address] [place] [address] Assigned Gastroenterology Provider 07/17/22 Bandar Casas RPH 420 [facility] 812 [place] [address] Pharmacist Pharmacist 08/18/23 Bandar Casas RP [address] [address] Assigned MTM Pharmacist 08/27/23 Ayana Zhang PA-C [address] [place] [address] Physician Enrollment Coordinator Rheumatology 04/16/24 Srinivas Stern PA-C 909 [place] [address] Home Infusion Following Provider Gastroenterology 07/11/24 10/05/24 documented as of this encounter
--- OUTSIDE RECORDS SUMMARY | 2025-01-15 15:47 | XMS_ITS | Encounter Summary ---
Author Organization [place] Address [address] [place] [address] Care Team Providers Care Physical Therapy Manager Name Role Phone Jairo Vasquez MD Primary Care Provider [phone] Kylee Dailey MD Unavailable + Kayode Ivey MD Unavailable [phone] Nicolasa Perez APRN BUSINESS BROKER Unavaila ble Loyda Dickey RN Unavailable +[phone] Srinivas Stern PA-C Unavailable +[phone] Srinivas Stern PA-C Unavailable +[phone] Violet Ta [facility] Unavailable +[phone] Sue Mckeon [facility] Unavailable +[phone] Karen Trinh MD Unavailable +[phone] Violet Ta [facility] Unavailable +[phone] Violet Ta [facility] Unavailable +[phone] Srinivas Stern PA-C Unavailable +[phone] Bandar Casas [facility] Unavailable [phone] Bandar Casas [facility] Unavailable Ayana Zhang PA-C Unavailable [phone] Srinivas Stern PA-C Unavailable Encounter Details Date Type Department Care Team (Late st Contact Info) Description 04/15/2016 MyC Medical Advice [facility] Gastroenterology and IBD Clinic [address] [place] [address] Kayode Ivey MD 6 [place] [address] Social History Tobacco Use Types Packs/Day Years Used Date Smoking Tobacco: Never Alcohol Use Standard Drinks/Week Comments No 0 (1 standard drink = 0.6 oz pur e alcohol) not currently Sex and Gender Information Value Date Recorded Sex Assigned at Not on file Legal Sex 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 PSYCHOTHERAPIST Gender Identity Not on file Sexual Orientation Not on file 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 Plan of Treatment Upcoming Encounters Date Type Department Care Team (Latest Contact Info) Description 02/13/2025 3:20 PM CDT Appointment [facility] Imaging [address] [facility] [address] [place] [phone] Kayode Ivey MD 6 [place] [address] 03/07/2025 3:00 PM CDT Ancillary Procedure [address] [place] [address] Srinivas Stern PA-C [address] [place] [address] [phone] 04/24/2025 2:40 PM CDT Virtual Visit [facility] Gastroenterology Clinic [address] [address] Alexis Torres MD 420 [place] [address] Srinivas Stern PA-C 909 [place], [place] 469735 06/05/2025 3:30 PM CDT Virtual Visit Viola MADER[facility]TM [address] [facility] [address] 2nd [place] [phone] Kayode Ivey MD 516 [place] [address] Bandar Casas, [facility] 420 [facility] 812 [place], [place] 184425 documented as of this encounter Visit Diagnoses Not on filedocumented in this encounter Additional Health Concerns Infection Onset Date Last Indicated Resolved Time MRSA-Contact Isolation Comment: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, chest, and elbow 02/17/2016 02/17/2016 Rule Out C-difficile 10/04/2023 10/05/2023 024 7:28 PM PSYCHOTHERAPIST C-difficile 10/05/2023 10/05/2023 11/04/2023 11:3 9 PM PSYCHOTHERAPIST Rule Out C-difficile 09/03/2024 09/04/2024 025 12:45 PM PSYCHOTHERAPIST Assessment Noted Time PHQ-9 Depression Total Score: 9 03/02/20 16 7:16 AM CDT documented as of this encounter Care Teams Physical Therapy Manager Relationship Specialty Start Date End Date Jairo Vasquez MD PCP - General Family Medicine - Sports Medicine 12/29/15 Kylee Dailey MD [address] [place] [address] 2A [place] [address] Internal Medicine 04/01/17 Kayode Ivey MD [address] [place] [address] Gastroenterology 04/01/17 Nicolasa Perez APRN BUSINESS BROKER [address] [place] [address] [id number] [place], [place] 759835 Nurse Practitioner Nurse Practitioner 04/28/17 Loyda Dickey RN Nurse Coordinator Neurology 05/26/17 02/26/19 Srinivas Stern PA-C [address] [place] [address] [phone] Physician Terminal Supervisor Physician Terminal Supervisor 10/02/18 Srinivas Stern PA-C [address] [place] [address] [id number] Assigned Heart and Vascular Provider 11/19/20 06/27/21 Violet Ta [facility] [address] [place] [address] Pharmacist Pharmacist 12/29/20 02/08/21 Sue Mckeon [facility] [address] [place] [address] [phone] Pharmacist Pharmacist [employer] Consultant 02/09/21 06/29/22 Karen Trinh MD [address] [place] [address] [phone] Assigned Infectious Disease Provider 02/08/21 07/30/22 Violet Ta [facility] [address] [place] [address] [phone] Assigned MTM Pharmacist 02/27/22 05/21/22 Violet Ta [facility] [address] [place] [address] [address] [place] [address] Assigned MTM Pharmacist 06/02/22 07/09/22 Srinivas Stern PA-C 909 [place] [address] Assigned Gastroenterology Provider 07/17/22 Bandar Casas RPH [address] [address] Pharmacist Pharmacist 08/18/23 Bandar Casas RPH [address] [place] [address] Assigned MTM Pharmacist 08/27/23 Ayana Zhang PA-C [address] [place] [address] Physician Terminal Supervisor Rheumatology 04/16/24 Srinivas Stern PA-C [address] [place] [address] Home Infusion Following Provider Gastroenterology 07/11/24 10/05/24 documented as of this encounter
--- OUTSIDE RECORDS SUMMARY | 2025-01-15 15:47 | XMS_ITS | Encounter Summary ---
Author Organization [place] Address [address] [place] [address] Care Team Providers Care Oil Treater Name Role Phone Jairo Vasquez MD Primary Care Provider [phone] Kylee Dailey MD Unavailable + Kayode Ivey MD Unavailable [phone] Nicolasa Perez APRN DISTRIBUTION ENGINEER Unavaila ble Loyda Dickey RN Unavailable +[phone] Srinivas Stern PA-C Unavailable +[phone] Srinivas Stern PA-C Unavailable +[phone] Violet Ta [facility] Unavailable +[phone] Sue Mckeon [facility] Unavailable +[phone] Karen Trinh MD Unavailable +[phone] Violet Ta [facility] Unavailable +[phone] Violet Ta [facility] Unavailable +[phone] Srinivas Stern PA-C Unavailable +[phone] Bandar Casas [facility] Unavailable +[phone] Bandar Casas [facility] Unavailable +[phone] Ayana Zhang PA-C Unavailable [phone] Srinivas Stern PA-C Unavailable [phone] Encounter Details Date Type Department Care Team (Late st Contact Info) Description 05/26/2016 MyC Medical Advice [facility] Gastroenterology and IBD Clinic [address] [place] [address] Kayode Ivey MD 6 [place] [address] Social History Tobacco Use Types Packs/Day Years Used Date Smoking Tobacco: Never Alcohol Use Standard Drinks/Week Comments No 0 (1 standard drink = 0.6 oz pur e alcohol) not currently Sex and Gender Information Value Date Recorded Sex Assigned at Not on file Legal Sex 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 SENIOR AGRICULTURAL ASSISTANT Gender Identity Not on file Sexual Orientation Not on file 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 Plan of Treatment Upcoming Encounters Date Type Department Care Team (Latest Contact Info) Description 02/13/2025 3:20 PM CDT Appointment [facility] Imaging [address] [facility] [address] [place] [phone] Kayode Ivey MD 6 [place] [address] 03/07/2025 3:00 PM CDT Ancillary Procedure [address] [place] [address] Srinivas Stern PA-C [address] [place] [address] [phone] 04/24/2025 2:40 PM CDT Virtual Visit [facility] Gastroenterology Clinic [address] [address] Alexis Torres MD 420 [place] [address] Srinivas Stern PA-C 909 [place], [place] [phone] 06/05/2025 3:30 PM CDT Virtual Visit Viola [facility] [address] [facility] [address] 2nd [place] [phone] Kayode Ivey MD 516 [place] [address] Bandar Casas, [facility] 420 [facility] 812 [place], [place] 169345 documented as of this encounter Visit Diagnoses Not on filedocumented in this encounter Additional Health Concerns Infection Onset Date Last Indicated Resolved Time MRSA-Contact Isolation Comment: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, chest, and elbow 02/17/2016 02/17/2016 Rule Out C-difficile 10/04/2023 10/05/2023 024 7:28 PM SENIOR AGRICULTURAL ASSISTANT C-difficile 10/05/2023 10/05/2023 11/04/2023 11:3 9 PM SENIOR AGRICULTURAL ASSISTANT Rule Out C-difficile 09/03/2024 09/04/2024 025 12:45 PM SENIOR AGRICULTURAL ASSISTANT Assessment Noted Time PHQ-9 Depression Total Score: 9 03/02/20 16 7:16 AM CDT documented as of this encounter Care Teams Oil Treater Relationship Specialty Start Date End Date Jairo Vasquez MD PCP - General Family Medicine - Sports Medicine 12/29/15 Kylee Dailey MD [address] [place] [address] 2A [place] [address] Internal Medicine 04/01/17 Kayode Ivey MD [address] [place] [address] Gastroenterology 04/01/17 Nicolasa Perez APRN DISTRIBUTION ENGINEER [address] [place] [address] [id number] [place], [place] [phone] Nurse Practitioner Nurse Practitioner 04/28/17 Loyda Dickey RN Nurse Coordinator Neurology 05/26/17 02/26/19 Srinivas Stern PA-C [address] [place] [address] [phone] Physician Hearing Specialist Physician Hearing Specialist 10/02/18 Srinivas Stern PA-C [address] [place] [address] [phone] Assigned Heart and Vascular Provider 11/19/20 06/27/21 Violet Ta [facility] [address] [place] [address] Pharmacist Pharmacist 12/29/20 02/08/21 Sue Mckeon [facility] [address] [place] [address] [phone] Pharmacist Pharmacist Director Of Database Marketing 02/09/21 06/29/22 Karen Trinh MD [address] [place] [address] [phone] Assigned Infectious Disease Provider 02/08/21 07/30/22 Violet Ta [facility] [address] [place] [address] [phone] Assigned MTM Pharmacist 02/27/22 05/21/22 Violet Ta [facility] [address] [place] [address] [address] [place] [address] Assigned MTM Pharmacist 06/02/22 07/09/22 Srinivas Stern PA-C 909 [place] [address] Assigned Gastroenterology Provider 07/17/22 Bandar Casas RPH [address] [address] Pharmacist Pharmacist 08/18/23 Bandar Casas RPH [address] [place] [address] Assigned MTM Pharmacist 08/27/23 Ayana Zhang PA-C [address] [place] [address] Physician Hearing Specialist Rheumatology 04/16/24 Srinivas Stern PA-C [address] [place] [address] Home Infusion Following Provider Gastroenterology 07/11/24 10/05/24 documented as of this encounter
--- OUTSIDE RECORDS SUMMARY | 2025-01-15 15:47 | XMS_ITS | Encounter Summary ---
Author Organization [place] Address [address] [place] [address] Care Team Providers Care Routing Equipment Tender Name Role Phone Jairo Vasquez MD Primary Care Provider [phone] Kylee Dailey MD Unavailable + Kayode Ivey MD Unavailable [phone] Nicolasa Perez APRN WASHER OPERATOR Unavaila ble Srinivas Stern PA-C Unavailable +[phone] Srinivas Stern PA-C Unavailable +[phone] Violet Ta [facility] Unavailable +[phone] Sue Mckeon [facility] Unavailable [phone] Karen Trinh MD Unavailable +[phone] Violet Ta [facility] Unavailable +[phone] Violet Ta [facility] Unavailable +[phone] Srinivas Stern PA-C Unavailable +[phone] Bandar Casas [facility] Unavailable +[phone] Bandar Casas [facility] Unavailable +[phone] Ayana Zhang PA-C Unavailable [phone] Srinivas Stern PA-C Unavailable [phone] Encounter Details Date Type Department Care Team (Late st Contact Info) Description 05/09/2019 MyC Medical Advice [facility]ology [facility] [address] [place] [address] Kayode Ivey MD 6 [place], [place] 789815 Social History Tobacco Use Types Packs/Day Years Used Date Smoking Tobacco: Never Smokeless Tobacco: Never Alcohol Use Standard Drinks/Week Comments Yes 13 (1 standard drink = 0.6 oz pu re alcohol) MONTHLY Sex and Gender Information Value Date Recorded Sex Assigned at Not on file Legal Sex 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 BUS GIRL Gender Identity Not on file Sexual Orientation Not on file 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 [address] [facility] [address] [place] [phone] Kayode Ivey MD 6 [place], [place] [phone] 03/07/2025 3:00 PM CDT Ancillary Procedure [address] [place] [address] Srinivas Stern PA-C [address] [place] [address] [phone] 04/24/2025 2:40 PM CDT Virtual Visit [facility] Gastro[facility]ology Clinic [address] [address] Alexis Torres MD 420 [place], [place] 673155 Srinivas Stern PA-C [address] [place] [address] 825905 06/05/2025 3:30 PM CDT Virtual Visit [facility] 909 [facility] [address] 2nd [place] [phone] Kayode Ivey MD 516 [facility] [place], [place] [phone] Bandar Casas, [facility] 420 [facility] 812 [place], [place] 540775 documented as of this encounter Visit Diagnoses Not on filedocumented in this encounter Additional Health Concerns Infection Onset Date Last Indicated Resolved Time MRSA-Contact Isolation Comment: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, chest, and elbow 02/17/2016 02/17/2016 Rule Out C-difficile 10/04/2023 10/05/2023 024 7:28 PM BUS GIRL C-difficile 10/05/2023 10/05/2023 11/04/2023 11:3 9 PM BUS GIRL Rule Out C-difficile 09/03/2024 09/04/2024 025 12:45 PM BUS GIRL Assessment Noted Time PHQ-9 Depression Total Score: 9 03/02/20 16 7:16 AM CDT documented as of this encounter Care Teams Routing Equipment Tender Relationship Specialty Start Date End Date Jairo Vasquez MD PCP - General Family Medicine - Sports Medicine 12/29/15 Kylee Dailey MD [address] [place] [address] [address] [place], [place] [address] Internal Medicine 04/01/17 Kayode Ivey MD 6 [place], [place] 969135 Gastroenterology 04/01/17 Nicolasa Perez APRN WASHER OPERATOR [address] [place] [address] [id number] [place] [address] Nurse Practitioner Nurse Practitioner 04/28/17 Srinivas Stern PA-C [address] [place] [address] Physician Manager Hospital Physician Manager Hospital 10/02/18 Srinivas Stern PA-C [address] [place] [address] Assigned Heart and Vascular Provider 11/19/20 06/27/21 Violet Ta [facility] [address] [place] [address] Pharmacist Pharmacist 12/29/20 02/08/21 Sue Mckeon [facility] [address] [place] [address] 06648 Pharmacist Pharmacist Erp Programmer 02/09/21 06/29/22 Karen Trinh MD [address] [place] [address] 35746 Assigned Infectious Disease Provider 02/08/21 07/30/22 Violet Ta [facility] [address] [place] [address] Assigned MTM Pharmacist 02/27/22 05/21/22 Violet Ta [facility] [address] [place] [address] Assigned MTM Pharmacist 06/02/22 07/09/22 Srinivas Stern PA-C 909 [place] [address] Assigned Gastroenterology Provider 07/17/22 Bandar Casas RPH [address] [place] [address] Pharmacist Pharmacist 08/18/23 Bandar Casas R[facility] [address] [address] Assigned MTM Pharmacist 08/27/23 Ayana Zhang PA-C [address] [place] [address] Physician Manager Hospital Rheumatology 04/16/24 Srinivas Stern PA-C [address] [place] [address] Home Infusion Following Provider Gastroenterology 07/11/24 10/05/24 documented as of this encounter
--- OUTSIDE RECORDS SUMMARY | 2025-01-15 15:47 | XMS_ITS | Encounter Summary ---
Author Organization [place] Address [address] [place] [address] Care Team Providers Care Magazine Supervisor Name Role Phone Jairo Vasquez MD Primary Care Provider [phone] Kylee Dailey MD Unavailable + Kayode Ivey MD Unavailable [phone] Nicolasa Perez APRN DIVISION HEAD Unavaila ble Srinivas Stern PA-C Unavailable [phone] Sue Mckeon [facility] Unavailable Karen Trinh MD Unavailable [phone] Violet Ta [facility] Unavailable [phone] Violet Ta [facility] Unavailable Srinivas Stern PA-C Unavailable [phone] Bandar Casas [facility] Unavailable Bandar Casas [facility] Unavailable Ayana Zhang PA-C Unavailable [phone] Srinivas Stern PA-C Unavailable [phone] Encounter Details Date Type Department Care Team (Late st Contact Info) Description 01/22/2022 [facility] [address] [place] [address] Blanca Menezes, RN Social History Tobacco Use Types Packs/Day Years Used Date Smoking Tobacco: Never Smokeless Tobacco: Never Alcohol Use Standard Drinks/Week Comments Yes 13 (1 standard drink = 0.6 oz pu re alcohol) MONTHLY PHQ-2 Answer Date Recorded PHQ-2 Score 0 01/19/2022 Sex and Gender Information Value Date Recorded Sex Assigned at Not on file Legal Sex 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 HISTOTECHNOLOGIST SUPERVISOR Gender Identity Not on file Sexual Orientation Not on file 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 Plan of Treatment Upcoming Encounters Date Type Department Care Team (Latest Contact Info) Description 02/13/2025 3:20 PM CDT Appointment [facility] [address] [facility] [address] [place] [phone] Kayode Ivey MD 516 [place], [place] 508535 03/07/2025 3:00 PM CDT Ancillary Procedure [address] [place] [address] Srinivas Stern PA-C [address] [place] [address] 028905 04/24/2025 2:40 PM CDT Virtual Visit [facility] [address] [place] [phone] Alexis Torres MD 420 [place], [place] [phone] Srinivas Stern PA-C [address] [place] [address] 596215 06/05/2025 3:30 PM CDT Virtual Visit [facility] [address] 2nd [place] [phone] Kayode Ivey MD 6 [place], [place] 6[address]45 Augusto Bandar, [facility] 420 [facility] 812 [place], [place] 235285 documented as of this encounter Visit Diagnoses Not on filedocumented in this encounter Additional Health Concerns Infection Onset Date Last Indicated Resolved Time MRSA-Contact Isolation Comment: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, chest, and elbow 02/17/2016 02/17/2016 Rule Out C-difficile 10/04/2023 10/05/2023 024 7:28 PM HISTOTECHNOLOGIST SUPERVISOR C-difficile 10/05/2023 10/05/2023 11/04/2023 11:3 9 PM HISTOTECHNOLOGIST SUPERVISOR Rule Out C-difficile 09/03/2024 09/04/2024 025 12:45 PM HISTOTECHNOLOGIST SUPERVISOR Assessment Noted Time PHQ-9 Depression Total Score: 9 03/02/20 16 7:16 AM CDT documented as of this encounter Care Teams Magazine Supervisor Relationship Specialty Start Date End Date Jairo Vasquez MD PCP - General Family Medicine - Sports Medicine 12/29/15 Kylee Dailey MD [address] [place], [place] [address]B 2A [place] [address] Internal Medicine 04/01/17 Kayode Ivey MD [address] [place] [address] 013625 Gastroenterology 04/01/17 Nicolasa Perez, TRAINING PERSONNEL SUPERVISOR DIVISION HEAD [address] [place] [address] [id number] [place], [place] 301165 Nurse Practitioner Nurse Practitioner 04/28/17 Srinivas Stern PA-C [address] [place] [address] Physician Experimental Electronics Developer Physician Experimental Electronics Developer 10/02/18 Sue Mckeon [facility] [address] [place] [address]20 Pharmacist Pharmacist Thermal Technician 02/09/21 06/29/22 Karen Trinh MD [address] [place] [address] 08014 Assigned Infectious Disease Provider 02/08/21 07/30/22 Violet Ta [facility] [address] [place] [address] Assigned MTM Pharmacist 02/27/22 05/21/22 Violet Ta [facility] [address] [place] [address] Assigned MTM Pharmacist 06/02/22 07/09/22 Srinivas Stern PA-C [address] [place] [address] Assigned Gastroenterology Provider 07/17/22 Bandar Casas [facility] [address] [phone] Pharmacist Pharmacist 08/18/23 Bandar Casas [facility] [address] [address] Assigned MTM Pharmacist 08/27/23 Ayana Zhang PA-C 5200 [place] [address] Physician Experimental Electronics Developer Rheumatology 04/16/24 Srinivas Stern PA-C 9 [place] [address] Home Infusion Following Provider Gastroenterology 07/11/24 10/05/24 documented as of this encounter
--- OUTSIDE RECORDS SUMMARY | 2025-01-15 15:47 | XMS_ITS | Encounter Summary ---
Author Organization [place] Address [address] [place] [address] Care Team Providers Care Correctional Corporal Name Role Phone Jairo Vasquez MD Primary Care Provider [phone] Kylee Dailey MD Unavailable + Kayode Ivey MD Unavailable [phone] Nicolasa Perez APRN HOOP BENDING MACHINE OPERATOR Unavaila ble Srinivas Stern PA-C Unavailable +[phone] Srinivas Stern PA-C Unavailable [phone] Violte Ta [facility] Unavailable [phone] Sue Mckeon [facility] Unavailable [phone] Karen Trinh MD Unavailable [phone] Violet Ta [facility] Unavailable [phone] Violet Ta [facility] Unavailable +[phone] Srinivas Stern PA-C Unavailable +[phone] Bandar Casas [facility] Unavailable [phone] Bandar Casas [facility] Unavailable [phone] Ayana Zhang PA-C Unavailable [phone] Srinivas Stern PA-C Unavailable [phone] Encounter Details Date Type Department Care Team (Late st Contact Info) Description 11/14/2019 MyC Medical Advice [facility] [address] [place] [phone] Blanca Menezes, RN Social History Tobacco Use Types Packs/Day Years Used Date Smoking Tobacco: Never Smokeless Tobacco: Never Alcohol Use Standard Drinks/Week Comments Yes 13 (1 standard drink = 0.6 oz pu re alcohol) MONTHLY PHQ-2 Answer Date Recorded PHQ-2 Score 2 08/20/2019 Sex and Gender Information Value Date Recorded Sex Assigned at Not on file Legal Sex 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 HASSOCK MAKER Gender Identity Not on file Sexual Orientation Not on file 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 Plan of Treatment Upcoming Encounters Date Type Department Care Team (Latest Contact Info) Description 02/13/2025 3:20 PM CDT Appointment [facility] [address] [facility] [address] [place] [phone] Kayode Ivey MD 516 [place], [place] [phone] 03/07/2025 3:00 PM CDT Ancillary Procedure [address] [place] [address] Srinivas Stern PA-C [address] [place] [address] [phone] 04/24/2025 2:40 PM CDT Virtual Visit [facility] Gastroenterology Clinic [address] [phone] Alexis Torres MD 420 [place], [place] 598195 Srinivas Stern PA-C [address] [place] [address] [phone] 06/05/2025 3:30 PM CDT Virtual Visit [facility]TM [address] [facility] [address] 2nd [place] [address] Kayode Ivey MD 516 [place], [place] 424845 Bandar Casas, [facility] 420 [facility] 812 [place], [place] 881555 documented as of this encounter Visit Diagnoses Not on filedocumented in this encounter Additional Health Concerns Infection Onset Date Last Indicated Resolved Time MRSA-Contact Isolation Comment: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, chest, and elbow 02/17/2016 02/17/2016 Rule Out C-difficile 10/04/2023 10/05/2023 024 7:28 PM HASSOCK MAKER C-difficile 10/05/2023 10/05/2023 11/04/2023 11:3 9 PM HASSOCK MAKER Rule Out C-difficile 09/03/2024 09/04/2024 025 12:45 PM HASSOCK MAKER Assessment Noted Time PHQ-9 Depression Total Score: 9 03/02/20 16 7:16 AM CDT documented as of this encounter Care Teams Correctional Corporal Relationship Specialty Start Date End Date Jairo Vasquez MD PCP - General Family Medicine - Sports Medicine 12/29/15 Kylee Dailey MD [address] [place], [place] [address]B 2[address] [place], [place] [address] Internal Medicine 04/01/17 Kayode Ivey MD [address] [place] [address] 545745 Gastroenterology 04/01/17 Nicolasa Perez APRN HOOP BENDING MACHINE OPERATOR [address] [place] [address] [id number] [place] [address] Nurse Practitioner Nurse Practitioner 04/28/17 Srinivas Stern PA-C [address] [place] [address] Physician Hospital Medical Assistant Physician Hospital Medical Assistant 10/02/18 Srinivas Stern PA-C [address] [place] [address] 873355 Assigned Heart and Vascular Provider 11/19/20 06/27/21 Violet Ta, [facility] [address] [place] [address]78 Pharmacist Pharmacist 12/29/20 02/08/21 Sue Mckeon [facility] [address] [place] [address] 232755 Pharmacist Pharmacist Airplane Tester 02/09/21 06/29/22 Karen Trinh MD [address] [place] [address] 652005 Assigned Infectious Disease Provider 02/08/21 07/30/22 Violte Ta, [facility] [address] [place] [address] Assigned MTM Pharmacist 02/27/22 05/21/22 Violet Ta, [facility] [address] [place] [address] Assigned MTM Pharmacist 06/02/22 07/09/22 Srinivas Stern PA-C [address] [place] [address] 041765 Assigned Gastroenterology Provider 07/17/22 Bandar Casas RPH [address] [place] [address] [phone] Pharmacist Pharmacist 08/18/23 Bandar Casas RPH [address] [place] [address] Assigned MTM Pharmacist 08/27/23 Ayana Zhang PA-C [address] [place] [address] Physician Hospital Medical Assistant Rheumatology 04/16/24 Srinivas Stern PA-C [address] [place] [address] 708235 Home Infusion Following Provider Gastroenterology 07/11/24 10/05/24 documented as of this encounter
--- OUTSIDE RECORDS SUMMARY | 2025-01-15 15:47 | XMS_ITS | Encounter Summary ---
Author Organization [place] Address [address] [place] [address] Care Team Providers Care Retail Grocer Name Role Phone Jairo Vasquez MD Primary Care Provider [phone] Kylee Dailey MD Unavailable + Kayode Ivey MD Unavailable [phone] Nicolasa Perez APRN YARD BRAKEMAN Unavaila ble Loyda Dickey RN Unavailable [phone] Srinivas Stern PA-C Unavailable [phone] Srinivas Stern PA-C Unavailable +[phone] Violet Ta [facility] Unavailable +[phone] Sue Mckeon [facility] Unavailable +[phone] Karen Trinh MD Unavailable +[phone] Violet Ta [facility] Unavailable +[phone] Violet Ta [facility] Unavailable +[phone] Srinivas Stern PA-C Unavailable +[phone] Bandar Casas [facility] Unavailable +[phone] Bandar Casas [facility] Unavailable Ayana Zhang PA-C Unavailable [phone] Srinivas Stern PA-C Unavailable Encounter Details Date Type Department Care Team (Late st Contact Info) Description 03/23/2016 MyC Medical Advice [facility]astroenterology [facility] IBD Clinic [address] [place] [phone] Kayode Ivey MD 6 [place] [address] Social History Tobacco Use Types Packs/Day Years Used Date Smoking Tobacco: Never Alcohol Use Standard Drinks/Week Comments No 0 (1 standard drink = 0.6 oz pur e alcohol) not currently Sex and Gender Information Value Date Recorded Sex Assigned at Not on file Legal Sex 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 BRICK OR BLOCK MAKER Gender Identity Not on file Sexual Orientation Not on file 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 Plan of Treatment Upcoming Encounters Date Type Department Care Team (Latest Contact Info) Description 02/13/2025 3:20 PM CDT Appointment [facility] [address] [facility] [address] [place] [phone] Kayode Ivey MD 6 [place] [address] 03/07/2025 3:00 PM CDT Ancillary Procedure [address] [place] [address] Srinivas Stern PA-C [address] [place] [address] [phone] 04/24/2025 2:40 PM CDT Virtual Visit [facility] [address] [address] Alexis Torres MD 420 [place] [address] Srinivas Stern PA-C 909 [place], [place] 183515 06/05/2025 3:30 PM CDT Virtual Visit [facility] MTM 909 [facility] [address] 2nd [place] [phone] Kayode Ivey MD 516 [place] [address] Bandar Casas, [facility] 420 [facility] 812 [place], [place] 923125 documented as of this encounter Visit Diagnoses Not on filedocumented in this encounter Additional Health Concerns Infection Onset Date Last Indicated Resolved Time MRSA-Contact Isolation Comment: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, chest, and elbow 02/17/2016 02/17/2016 Rule Out C-difficile 10/04/2023 10/05/2023 024 7:28 PM BRICK OR BLOCK MAKER C-difficile 10/05/2023 10/05/2023 11/04/2023 11:3 9 PM BRICK OR BLOCK MAKER Rule Out C-difficile 09/03/2024 09/04/2024 025 12:45 PM BRICK OR BLOCK MAKER Assessment Noted Time PHQ-9 Depression Total Score: 9 03/02/20 16 7:16 AM CDT documented as of this encounter Care Teams Retail Grocer Relationship Specialty Start Date End Date Jairo Vasquez MD PCP - General Family Medicine - Sports Medicine 12/29/15 Kylee Dailey MD [address] [place] [address] 2A [place] [address] Internal Medicine 04/01/17 Kayode Ivey MD [address] [place] [address] Gastroenterology 04/01/17 Nicolasa Perez APRN YARD BRAKEMAN [address] [place] [address] [id number] [place], [place] 919985 Nurse Practitioner Nurse Practitioner 04/28/17 Loyda Dickey RN Nurse Coordinator Neurology 05/26/17 02/26/19 Srinivas Stern PA-C [address] [place] [address] [phone] Physician Refrigeration Repair Supervisor Physician Refrigeration Repair Supervisor 10/02/18 Srinivas Stern PA-C [address] [place] [address] 542115 Assigned Heart and Vascular Provider 11/19/20 06/27/21 Violet Ta [facility] [address] [place] [address] Pharmacist Pharmacist 12/29/20 02/08/21 Sue Mckeon [facility] [address] [place] [address] 827175 Pharmacist Pharmacist Clipper And Turner 02/09/21 06/29/22 Karen Trinh MD [address] [place] [address] [phone] Assigned Infectious Disease Provider 02/08/21 07/30/22 Violet Ta [facility] [address] [place] [address] [phone] Assigned MTM Pharmacist 02/27/22 05/21/22 Violet Ta [facility] [address] [place] [address] [address] [place] [address] Assigned MTM Pharmacist 06/02/22 07/09/22 Srinivas Stern PA-C 909 [place] [address] Assigned Gastroenterology Provider 07/17/22 Bandar Casas RPH [address] [address] Pharmacist Pharmacist 08/18/23 Bandar Casas RPH [address] [place] [address] Assigned MTM Pharmacist 08/27/23 Ayana Zhang PA-C [address] [place] [address] Physician Refrigeration Repair Supervisor Rheumatology 04/16/24 Srinivas Stern PA-C [address] [place] [address] Home Infusion Following Provider Gastroenterology 07/11/24 10/05/24 documented as of this encounter
--- OUTSIDE RECORDS SUMMARY | 2025-01-15 15:47 | XMS_ITS | Encounter Summary ---
Author Organization [place] Address [address] [place] [address] Care Team Providers Care Property Manager Name Role Phone Jairo Vasquez MD Primary Care Provider [phone] Kylee Dailey MD Unavailable + Kayode Ivey MD Unavailable [phone] Nicolasa Perez APRN MANAGER REAL ESTATE Unavaila ble Loyda Dickey RN Unavailable [phone] Srinivas Stern PA-C Unavailable [phone] Srinivas Stern PA-C Unavailable +[phone] Violet Ta [facility] Unavailable [phone] Sue Mckeon [facility] Unavailable [phone] Karen Trinh MD Unavailable +[phone] Violet Ta [facility] Unavailable [phone] Violet Ta [facility] Unavailable [phone] Srinivas Stern PA-C Unavailable +[phone] Bandar Casas [facility] Unavailable [phone] Bandar Casas [facility] Unavailable Ayana Zhang PA-C Unavailable [phone] Srinivas Stern PA-C Unavailable Encounter Details Date Type Department Care Team (Late st Contact Info) Description 03/18/2016 MyC Medical Advice [facility] [address] [place] [address] Kayode Ivey MD [address] [place] [address] Social History Tobacco Use Types Packs/Day Years Used Date Smoking Tobacco: Never Alcohol Use Standard Drinks/Week Comments No 0 (1 standard drink = 0.6 oz pur e alcohol) not currently Sex and Gender Information Value Date Recorded Sex Assigned at Not on file Legal Sex 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 LEGAL WORD PROCESSOR Gender Identity Not on file Sexual Orientation Not on file 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 Plan of Treatment Upcoming Encounters Date Type Department Care Team (Latest Contact Info) Description 02/13/2025 3:20 PM CDT Appointment [facility] Imaging [address] [facility] [address] [place] [phone] Kayode Ivey MD 6 [place] [address] 03/07/2025 3:00 PM CDT Ancillary Procedure [address] [place] [address] Srinivas Stern PA-C [address] [place] [address] [phone] 04/24/2025 2:40 PM CDT Virtual Visit [facility] [address] [address] Alexis Torres MD [address] [place] [address] Srinivas Stern PA-C [address] [place], [place] [phone] 06/05/2025 3:30 PM CDT Virtual Visit Viola MADERA MTM [address] [facility] [address] 2nd [place] [phone] Kayode Ivey MD [address] [place] [address] Bandar Casas, [facility] [address] [facility] [address] [place], [place] [phone] documented as of this encounter Visit Diagnoses Not on filedocumented in this encounter Additional Health Concerns Infection Onset Date Last Indicated Resolved Time MRSA-Contact Isolation Comment: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, chest, and elbow 02/17/2016 02/17/2016 Rule Out C-difficile 10/04/2023 10/05/2023 024 7:28 PM LEGAL WORD PROCESSOR C-difficile 10/05/2023 10/05/2023 11/04/2023 11:3 9 PM LEGAL WORD PROCESSOR Rule Out C-difficile 09/03/2024 09/04/2024 025 12:45 PM LEGAL WORD PROCESSOR Assessment Noted Time PHQ-9 Depression Total Score: 9 03/02/20 16 7:16 AM CDT documented as of this encounter Care Teams Property Manager Relationship Specialty Start Date End Date Jairo Vasquez MD PCP - General Family Medicine - Sports Medicine 12/29/15 Kylee Dailey MD [address] [place] [address] [address] [place] [address] Internal Medicine 04/01/17 Kayode Ivey MD [address] [place] [address] Gastroenterology 04/01/17 Nicolasa Perez APRN MANAGER REAL ESTATE [address] [place] [address] [id number] [place], [place] [address]265 Nurse Practitioner Nurse Practitioner 04/28/17 Loyda Dickey RN Nurse Coordinator Neurology 05/26/17 02/26/19 Srinivas Stern PA-C [address] [place] [address] [phone] Physician Tool Room Supervisor Physician Tool Room Supervisor 10/02/18 Srinivas Stern PA-C [address] [place] [address] [phone] Assigned Heart and Vascular Provider 11/19/20 06/27/21 Violet Ta [facility] [address] [place] [phone] Pharmacist Pharmacist 12/29/20 02/08/21 Sue Mckeon [facility] [address] [place] [address] [phone] Pharmacist Pharmacist Wash Helper 02/09/21 06/29/22 Karen Trinh MD [address] [place] [address] [id number] Assigned Infectious Disease Provider 02/08/21 07/30/22 Violet Ta [facility] [address] [place] [address] [phone] Assigned MTM Pharmacist 02/27/22 05/21/22 Violet Ta [facility] [address] [place] [address] [address] [place] [address] Assigned MTM Pharmacist 06/02/22 07/09/22 Srinivas Stern PA-C [address] [place] [address] Assigned Gastroenterology Provider 07/17/22 Bandar Casas RPH [address] [address] Pharmacist Pharmacist 08/18/23 Bandar Casas RPH [address] [place] [address] Assigned MTM Pharmacist 08/27/23 Ayana Zhang PA-C [address] [place] [address] Physician Tool Room Supervisor Rheumatology 04/16/24 Srinivas Stern PA-C [address] [place] [address] Home Infusion Following Provider Gastroenterology 07/11/24 10/05/24 documented as of this encounter
--- OUTSIDE RECORDS SUMMARY | 2025-01-15 15:47 | XMS_ITS | Encounter Summary ---
Author Organization [place] Address [address] [place] [address] Care Team Providers Care Radio Technician Name Role Phone Jairo Vasquez MD Primary Care Provider [phone] Kylee Dailey MD Unavailable + Kayode Ivey MD Unavailable [phone] Nicolasa Perez APRN SOLID PROPELLANT PROCESSOR Unavaila ble Srinivas Stern PA-C Unavailable [phone] Sue Mckeon [facility] Unavailable Karen Trinh MD Unavailable [phone] Violet Ta [facility] Unavailable [phone] Violet Ta [facility] Unavailable Srinivas Stern PA-C Unavailable [phone] Bandar Casas [facility] Unavailable Bandar Casas [facility] Unavailable Ayana Zhang PA-C Unavailable Srinivas Stern PA-C Unavailable [phone] Encounter Details Date Type Department Care Team (Late st Contact Info) Description 2021 [facility] [address] [place] [address] Kayode Ivey MD [address] [place] [address] [phone] Social History Tobacco Use Types Packs/Day Years Used Date Smoking Tobacco: Never Smokeless Tobacco: Never Alcohol Use Standard Drinks/Week Comments Yes 13 (1 standard drink = 0.6 oz pu re alcohol) MONTHLY PHQ-2 Answer Date Recorded PHQ-2 Score 1 01/28/2021 Sex and Gender Information Value Date Recorded Sex Assigned at Not on file Legal Sex 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 VENEER LATHE OPERATOR Gender Identity Not on file Sexual Orientation Not on file 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 No / Unsure 10/06/2021 2:41 PM VENEER LATHE OPERATOR documented as of this encounter Plan of Treatment Upcoming Encounters Date Type Department Care Team (Latest Contact Info) Description 02/13/2025 3:20 PM CDT Appointment [facility] Imaging [address] [facility] [address] [place] [address] Kayode Ivey MD [address] [place] [address] [phone] 03/07/2025 3:00 PM CDT Ancillary Procedure [address] [place] [address] Srinivas Stern PA-C [address] [place] [address] 04/24/2025 2:40 PM CDT Virtual Visit [facility] [address] [place] [address] Alexis Torres MD [address] [place], [place] [phone] Srinivas Stern PA-C [address] [place], [place] [phone] 06/05/2025 3:30 PM CDT Virtual Visit [facility] David [facility] [address] [facility] [address] [place] [phone] Kayode Ivey MD [address] [place] [address] Bandar Casas, [facility] 420 [facility] [place] 812 [place], [place] [phone] documented as of this encounter Visit Diagnoses Not on filedocumented in this encounter Additional Health Concerns Infection Onset Date Last Indicated Resolved Time MRSA-Contact Isolation Comment: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, chest, and elbow 02/17/2016 02/17/2016 Rule Out C-difficile 10/04/2023 10/05/2023 024 7:28 PM VENEER LATHE OPERATOR C-difficile 10/05/2023 10/05/2023 11/04/2023 11:3 9 PM VENEER LATHE OPERATOR Rule Out C-difficile 09/03/2024 09/04/2024 025 12:45 PM VENEER LATHE OPERATOR Assessment Noted Time PHQ-9 Depression Total Score: 9 03/02/20 16 7:16 AM CDT documented as of this encounter Care Teams Radio Technician Relationship Specialty Start Date End Date Jairo Vasquez MD PCP - General Family Medicine - Sports Medicine 12/29/15 Kylee Dailey MD [address] [place] [address] [address] [place], [place] [address] Internal Medicine 04/01/17 Kayode Ivey MD [address] [place] [address] Gastroenterology 04/01/17 Nicolasa Perez APRN CNP [address] [place] [address] [id number] [place] [address] Nurse Practitioner Nurse Practitioner 04/28/17 Srinivas Stern PA-C [address] [place] [address] Physician Flag Car Driver Physician Flag Car Driver 10/02/18 Sue Mckeon [facility] [address] [place] [address] Pharmacist Pharmacist Alligator Trapper 02/09/21 06/29/22 Karen Trinh MD [address] [place] [address] Assigned Infectious Disease Provider 02/08/21 07/30/22 Violet Ta, [facility] [address] [place] [address] Assigned MTM Pharmacist 02/27/22 05/21/22 [facility] [address] [place] [address] Assigned MTM Pharmacist 06/02/22 07/09/22 Srinivas Stern PA-C [address] [place] [address] Assigned Gastroenterology Provider 07/17/22 Bandar Casas [facility] [address] 122532 [place] [address] Pharmacist Pharmacist 08/18/23 Bandar Casas [facility] 420 [facility] 812 [place] [address] Assigned MTM Pharmacist 08/27/23 Ayana Zhang PA-C [address] [place] [address] Physician Flag Car Driver Rheumatology 04/16/24 Srinivas Stern PA-C [address] [place] [address] Home Infusion Following Provider Gastroenterology 07/11/24 10/05/24 documented as of this encounter
--- OUTSIDE RECORDS SUMMARY | 2025-01-15 15:47 | XMS_ITS | Encounter Summary ---
Author Organization [place] Address [facility] [place] [address] Care Team Providers Care Supervisor Dried Yeast Name Role Phone Jairo Vasquez MD Primary Care Provider Kylee Dailey MD Unavailable + Kayode Ivey MD Unavailable [phone] Nicolasa Perez APRN KILN HAND Unavaila ble Srinivas Stern-C Unavailable [phone] Srinivas Stern-C Unavailable [phone] Bandar Casas [facility] Unavailable Bandar Casas [facility] Unavailable [phone] Ayana Zhang-C Unavailable [phone] Reason for Visit * Auth/Cert Specialty Diagnoses / Procedures Referred By Pérez fish Referred To Contact Surgery Diagnoses Ulcerative pancolitis without complication (H) Ulcerative pancolitis without complication (H) [K51.00] Procedures IA COLONOSCOPY W/WO BRUSH/WASH IA COLOREC CANC SCRN,SCOPY NOT HI RISK [place] [address] [place] [address] Phone: tel: Referral ID Status Reason Start Date Expiration Date Visits Re quested Visits Authorized [id number] 1 1 Encounter Details Date Type Department Care Team (Late st Contact Info) Description 01/14/2025 2:00 PM CDT - 01/14/2025 2:40 PM CDT Surgery [facility] [address] [place] [address] [place] [address] [facility] [place] [address] Colonoscopy Surgery Details Date/Time Status Location OR Service Patient Class Case Class Case Type Trauma Case? 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 atorvastatin (LIPITOR) 10 MG tablet Take 10 mg by mouth At Bedtime 3 metFORMIN (GLUCOPHAGE-XR) 500 MG 24 hr tablet 1,000 mg Per pt report 0 Acetaminophen (TYLENOL PO) Take 1,000 mg by mouth as needed for mild pain or fever albuterol (PROAIR HFA/PROVENTIL HFA/VENTOLIN HFA) 108 (90 Base) MCG/ACT inhaler Inhale 1-2 puffs into the lungs Every 4 hours if needed for shortness of breath 1 bisacodyl (DULCOLAX) 5 MG EC tabletIndications :Ulcerative pancolitis without complication (H) Take 2 tablets at 3 pm the day before your procedure. If your procedure is before 11 am, take 2 additional tablets at 11 pm. If your procedure is after 11 am, take 2 additional tablets at 6 am. For additional instructions refer to your colonoscopy prep instructions. 4 tablet 5 Budesonide 2 MG/ACT FOAMIndications:U lcerative pancolitis without complication (H) Place 2 mg rectally 2 times daily for 14 days, THEN 2 mg daily for 14 days. 133.6 g 5 01/24/20 25 hydrOXYzine (VISTARIL) 25 MG capsule Take 1-2 capsules by mouth Every 4 to 6 hours as needed for anxiety 1 polyethylene glycol (GOLYTELY) 236 g suspensionIndicat ions:Ulcerative pancolitis without complication (H) The night before the exam at 6 pm drink an 8-ounce glass every 15 minutes until the jug is half empty. If you arrive before 11 AM: Drink the other half of the SuitMe jug at 11 PM night before procedure. If you arrive after 11 AM: Drink the other half of the SuitMe jug at 6 AM day of procedure. For additional instructions refer to your colonoscopy prep instructions. 4000 mL 5 Vedolizumab 108 MG/0.68ML SOAJIndications:U lcerative colitis with rectal bleeding, unspecified location (H) Inject 108 mg subcutaneously every 14 days. 1.36 mL 2 5 documented as of this encounter H&P Notes * Yuan Evans MD - 01/14/2025 1:59 PM CDT ENDOSCOPY PRE-SEDATION H&P FOR OUTPATIENT PROCEDURES Igor Flores [id number] 1975 Procedure: colonoscopy Pre-procedure diagnosis: UC Past medical history: Past Medical History: Diagnosis Date Clostridium difficile infection 01/24/2016 Diabetes (H) Gastroesophageal reflux disease H/O methicillin resistant Staphylococcus aureus 2011, 2013 right wrist, left chest, and right axilla. Nares neg 03/04/14, 03/16/14 Hypertension Noninfectious ileitis Olecranon bursitis 03/15/2013 Past surgical history: Past Surgical History: Procedure Laterality Date COLONOSCOPY 04/01/2015 COLONOSCOPY N/A 02/17/2016 Procedure: COMBINED COLONOSCOPY, SINGLE OR MULTIPLE BIOPSY/POLYPECTOMY BY BIOPSY; Surgeon: Dru Lares MD; Location: GI COLONOSCOPY N/A 04/01/2021 Procedure: COLONOSCOPY, WITH POLYPECTOMY AND BIOPSY; Surgeon: Kayode Ivey MD; [place] [facility] [place] N/A 06/07/2023 Procedure: COLONOSCOPY, WITH BIOPSY; Surgeon: Igor Galeas MD; [place] [facility] [place]IC [place]GERY knee arthoscopy, high school, for right knee mensical tear Current Outpatient Medications Medication Sig Dispense Refill amLODIPine (NORVASC) 5 MG tablet Take 5 mg by mouth daily. atorvastatin (LIPITOR) 10 MG tablet Take 10 mg by mouth At Bedtime metFORMIN (GLUCOPHAGE-XR) 500 MG 24 hr tablet 1,000 mg Per pt report Acetaminophen (TYLENOL PO) Take 1,000 mg by mouth as needed for mild pain or fever albuterol (PROAIR HFA/PROVENTIL HFA/VENTOLIN HFA) 108 (90 Base) MCG/ACT inhaler Inhale 1-2 puffs into the lungs Every 4 hours if needed for shortness of breath bisacodyl (DULCOLAX) 5 MG EC tablet Take 2 tablets at 3 pm the day before your procedure. If your procedure is before 11 am, take 2 additional tablets at 11 pm. If your procedure is after 11 am, take2 additional tablets at 6 am. For additional instructions refer to your colonoscopy prep instructions. 4 tablet 0 budesonide (ENTOCORT EC) 3 MG EC capsule Take 3 capsules (9 mg) by mouth every morning for 28 days.84 capsule 0 Budesonide 2 MG/ACT FOAM Place 2 mg rectally 2 times daily for 14 days, THEN 2 mg daily for 14 days. 133.6 g 0 hydrOXYzine (VISTARIL) 25 MG capsule Take 1-2 capsules by mouth Every 4 to 6 hours as needed for anxiety polyethylene glycol (GOLYTELY) 236 g suspension The night before the exam at 6 pm drink an 8-ounce glass every 15 minutes until the jug is half empty. If you arrive before 11 AM: Drink the other halfof the Golytely jug at 11 PM night before procedure. If you arrive after 11 AM: Drink the other half of the Golytely jug at 6 AM day of procedure. For additional instructions refer to your colonoscopy prep instructions. 4000 mL 0 Vedolizumab 108 MG/0.68ML SOAJ Inject 108 mg subcutaneously every 14 days. 1.36 mL 2 Current Facility-Administered Medications Medication Dose Route Frequency Provider Last Rate Last Admin lidocaine (LMX4) kit Topical Q1H PRN Yuan Evans MD lidocaine 1 % 0.1-1 mL 0.1-1 mL Other Q1H PRN Yuan Evans MD ondansetron (ZOFRAN) injection 4 mg 4 mg Intravenous Once PRN Yuan Evans MD sodium chloride (PF) 0.9% PF flush 3 mL 3 mL Intracatheter Q8H [facility] Yuan Evans MD sodium chloride (PF) 0.9% PF flush 3 mL 3 mL Intracatheter q1 min prn Yaun Evans MD Allergies Allergen Reactions Sulfa Antibiotics Sulfamethoxazole-Trimethoprim Rash History of Anesthesia/Sedation Problems: no PHYSICAL EXAMINATION: Constitutional: aaox3, cooperative, pleasant Vitals reviewed: BP (!) 125/99 Pulse 82 Temp 98.2 ??F (36.8 ??C) (Temporal) Resp 16 Wt 118 kg (260 lb 2.3 oz) SpO2 98% BMI 31.67 kg/m?? Wt: Wt Readings from Last 2 Encounters: 01/14/25 118 kg (260 lb 2.3 oz) 12/05/24 117.9 kg (260 lb) Eyes: Sclera anicteric/injected Ears/nose/mouth/throat: Normal oropharynx without ulcers or exudate, mucus membranes moist, hearingintact Neck: supple, thyroid normal size CV: No edema Respiratory: Unlabored breathing Lymph: No submandibular, supraclavicular or inguinal lymphadenopathy Abd: Nondistended, no masses, nontender Skin: warm, perfused, no jaundice Psych: Normal affect MSK: normal movement on limited exam. ASA Score: See Provation note Assessment/Plan: The patient is an appropriate candidate to receive sedation. Informed consent was discussed with the patient/family, including the risks, benefits, potential complications and any alternative options associated with sedation. Patient assessment completed just prior to sedation and while under constant observation by the provider. Condition determined to be adequate for proceeding with sedation. The specific risks for the procedure were discussed with the patient at the time of informed consent and include but are not limited to perforation which could require surgery, missing significant neoplasm or lesion, hemorrhage and adverse sedative complication. Yuan Evans MD documented in this encounter Plan of Treatment Upcoming Encounters Date Type Department Care Team (Latest Contact Info) Description 02/13/2025 3:20 PM CDT Appointment [facility] [address] [facility] [address] [place] [phone] Kayode Ivey MD [address] [place] [address] [id number] 03/07/2025 3:00 PM CDT Ancillary Procedure [address] [place] [address] Srinivas Stern PA-C [address] [place] [address] [phone] 04/24/2025 2:40 PM CDT Virtual Visit [facility] [address] 4th [place] [phone] Alexis Torres MD [address] [place] [address] Srinivas Stern PA-C [address] [place] [address] 06/05/2025 3:30 PM CDT Virtual Visit [facility] [address] [facility] 2nd [place] [address] Kayode Ivey MD [address] [place] [address] Bandar Casas RPH [address] [facility] [address] [place], [place] [phone] Pending Results Name Type Priority Associated Diagnoses Date /Time Surgical Pathology Exam Pathology and Cytology Routine 01/14/2025 2:08 PM CDT Scheduled Orders Name Type Priority Associated Diagnoses Order Schedule Surgical Pathology Exam Pathology and Cytology Routine Release Upon Ordering for 1 Occurrences starting 01/14/2025, 1 completed documented as of this encounter Procedures Procedure Name Priority Date/Time Associated Diagnosis Comments COLONOSCOPY, WITH POLYPECTOMY AND BIOPSY 01/14/2025 1:57 PM CDT Ulcerative pancolitis without complication (H) COLONOSCOPY 01/14/2025 1:57 PM CDT Ulcerative pancolitis without complication (H) COLONOSCOPY Routine 01/14/2025 1:48 PM CDT GLUCOSE BY METER Routine 01/14/2025 1:37 PM CDT documented in this encounter Results * COLONOSCOPY (01/14/2025 1:48 PM CDT) COLONOSCOPY [facility] Patient Name: Igor Flores Procedure Date: 01/14/2025 1:48 PM Date of : 1975 Admit Type: Outpatient Age: 49 Gender: Male Note Status: Finalized Attending MD: YUAN EVANS MD, Instrument Name: [id number] Procedure: Colonoscopy Indications: Disease activity assessment of chronic ulcerative pancolitis, now on subcutaneous vedolizumab Providers: YUAN EVANS MD Referring MD: KAYODE IVEY Medicines: Fentanyl 150 micrograms IV, Midazolam 3 mg IV Complications: No immediate complications. Procedure: Pre-Anesthesia Assessment: - Prior to the procedure, a History and Physical was performed, and patient medications and allergies were reviewed. The patient is competent. The risks and benefits of the procedure and the sedation options and risks were discussed with the patient. All questions were answered and informed consent was obtained. Patient identification and proposed procedure were verified by the physician and the nurse in the pre-procedure area in the procedure room. Mental Status Examination: alert and oriented. Airway Examination: normal oropharyngeal airway and neck mobility. Respiratory Examination: clear to auscultation. CV Examination: normal. Prophylactic Antibiotics: The patient does not require prophylactic antibiotics. Prior Anticoagulants: The patient has taken no anticoagulant or antiplatelet agents. ASA Grade Assessment: II - A patient with mild systemic disease. After reviewing the risks and benefits, the patient was deemed in satisfactory condition to undergo the procedure. The anesthesia plan was to use moderate sedation / analgesia (conscious sedation). Immediately prior to administration of medications, the patient was re-assessed for adequacy to receive sedatives. The heart rate, respiratory rate, oxygen saturations, blood pressure, adequacy of pulmonary ventilation, and response to care were monitored throughout the procedure. The physical status of the patient was re-assessed after the procedure. After obtaining informed consent, the colonoscope was passed under direct vision. Throughout the procedure, the patient's blood pressure, pulse, and oxygen saturations were monitored continuously. The was introduced through the anus and advanced to the terminal ileum, with identification of the appendiceal orifice and IC valve. The colonoscopy was performed without difficulty. The patient tolerated the procedure well. The quality of the bowel preparation was evaluated using the BBPS (Jeff Bowel Preparation Scale) with scores of: Right Colon = 3, Transverse Colon = 3 and Left Colon = 3 (entire mucosa seen well with no residual staining, small fragments of stool or opaque liquid). The total BBPS score equals 9. Findings: The perianal and digital rectal examinations were normal. The terminal ileum appeared normal. The colon (entire examined portion) appeared normal. The retroflexed view of the distal rectum and anal verge was normal and showed no anal or rectal abnormalities. Inflammation was not found based on the endoscopic appearance of the mucosa in the colon. This was graded as Dailey Score 0 (normal or inactive disease), and when compared to the previous examination, the findings are quiescent. Several biopsies were obtained with cold forceps for evaluation of chronic inflammation randomly in the rectum, in the sigmoid colon, in the descending colon, in the transverse colon and in the ascending colon. Verification of patient identification for the specimen was done. Estimated blood loss was minimal. Dysplasia surviellance was performed throughout the entire colon with HDWL and virtual chromoendoscopy. No lesions or areas of concern were noted other than noted above. Moderate Sedation: Moderate (conscious) sedation was administered by the nurse and supervised by the endoscopist. The patient's oxygen saturation, heart rate, blood pressure and response to care were monitored. Total physician intraservice time was 16 minutes. Impression: - The examined portion of the ileum was normal. - The entire examined colon is normal. - The distal rectum and anal verge are normal on retroflexion view. - Inactive (Dailey Score 0) quiescent ulcerative colitis, quiescent since the last examination. - Several biopsies were obtained in the rectum, in the sigmoid colon, in the descending colon, in the transverse colon and in the ascending colon. - Dysplasia surviellance was performed with HDWL and virtual chromoendoscopy. No lesions of concern were noted other than was is reported above. Recommendation: - Discharge patient to home (ambulatory). - Patient has a contact number available for emergencies. The signs and symptoms of potential delayed complications were discussed with the patient. Return to normal activities tomorrow. Written discharge instructions were provided to the patient. - Await pathology results. - Return to GI office as previously scheduled. - Repeat colonoscopy for surviellance per direction of primary IBD provider. YUAN EVANS MD 01/14/2025 2:29:16 PM I was physically present for the entire viewing portion of the exam.YUAN EVANS MD Number of Addenda: 0 Note Initiated On: 01/14/2025 1:48 PM Scope Withdrawal Time: 0 hours 9 minutes 4 seconds Total Procedure Duration: 0 hours 13 minutes 41 seconds Scope In: 2:03:09 PM Scope Out: 2:16:50 PM RADIOLOGY RESULTS 01/14/2025 1:48 PM CDT us Kayode Ivey MD PROCEDURES Final Res ult RADIOLOGY RESULTS * Glucose by meter (01/14/2025 1:37 PM CDT) GLUCOSE BY METER POCT 94 70 - 99 mg/dL 01/14/2025 1:48 PM CDT [facility] Blood, venous BLOOD SPECIMEN / Unknown 01/14/2025 1:37 PM CDT 01/14/2025 1:48 PM CDT Yuan Evans MD LAB - BEAKER POCT F inal Result [facility] [address], [place] [address], [facility] documented in this encounter Visit Diagnoses Diagnosis Ulcerative pancolitis without complication (H) documented in this encounter Administered Medications Inactive Administered Medications - up to 3 most recent administrations Medication Order MAR Action Action Date Dose Rate Site fentaNYL (PF) (SUBLIMAZE) injection PRN, Administer over 3-5 Minutes, Starting on Tue01/14/25 at 1400, Intra-procedure $Given 01/14/2025 2:06 PM CDT 50 mcg $Given 01/14/2025 2:00 PM CDT 100 mcg midazolam (VERSED) injection Administer over 2 Minutes, PRN, Starting on Tue01/14/25 at 1400, Intra-procedure $Given 01/14/2025 2:06 PM CDT 1 mg $Given 01/14/2025 2:00 PM CDT 2 mg sodium chloride (PF) 0.9% PF flush PRN, Starting on Tue01/14/25 at 1403, Intra-procedure $Given 01/14/2025 2:08 PM CDT 5 mLs $Given 01/14/2025 2:03 PM CDT 5 mLs documented in this encounter Additional Health Concerns Infection Onset Date Last Indicated Resolved Time MRSA-Contact Isolation Comment: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, chest, and elbow 02/17/2016 02/17/2016 Assessment Noted Time PHQ-9 Depression Total Score: 9 03/02/20 16 7:16 AM CDT documented as of this encounter Care Teams Supervisor Dried Yeast Relationship Specialty Start Date End Date Jairo Vasquez MD PCP - General Family Medicine - Sports Medicine 12/29/15 Kylee Dailey MD [address] [place] [address] Internal Medicine 04/01/17 Kayode Ivey MD [address] [place] [address] [phone] Gastroenterology 04/01/17 Nicolasa Perez APRN CNP [address] [facility] [id number] [place] [address] Nurse Practitioner Nurse Practitioner 04/28/17 Srinivas Stern PA-C [address] [place] [address] [phone] Physician Service Associate Physician Service Associate 10/02/18 Srinivas Stern PA-C [address] [place] [address] [phone] Assigned Gastroenterology Provider 07/17/22 Bandar Casas RPH [address] [facility] [address] [place], [place] [phone] Pharmacist Pharmacist 08/18/23 Bandar Casas RPH [address] [facility] [address] [place] [address] Assigned MTM Pharmacist 08/27/23 Ayana Zhang PA-C [facility] [place] [address] Physician Service Associate Rheumatology 04/16/24 documented as of this encounter
--- OUTSIDE RECORDS SUMMARY | 2025-01-15 15:47 | XMS_ITS | Encounter Summary ---
Author Organization [place] Address [facility]0 [place] [address] Care Team Providers Care Team Manager Name Role Phone Jairo Vasquez MD Primary Care Provider Kylee Dailey MD Unavailable + Kayode Ivey MD Unavailable [phone] Nicolasa Perez APRN ENGINEERING PROJECT DESIGNER Unavaila ble Srinivas Stern-C Unavailable +[phone] Srinivas Stern-C Unavailable [phone] Bandar Casas [facility] Unavailable Bandar Casas [facility] Unavailable [phone] Ayana Zhang-C Unavailable [phone] Reason for Visit * Auth/Cert Specialty Diagnoses / Procedures Referred By Pérez fish Referred To Contact Surgery Diagnoses Ulcerative pancolitis without complication (H) Ulcerative pancolitis without complication (H) [K51.00] Procedures PA COLONOSCOPY W/WO BRUSH/WASH PA COLOREC CANC SCRN,SCOPY NOT [place] [address] [place] [address] Phone: tel: Referral ID Status Reason Start Date Expiration Date Visits Re quested Visits Authorized [id number] 1 1 Encounter Details Date Type Department Care Team (Late st Contact Info) Description 01/14/2025 1:05 PM CDT - 01/14/2025 11:59 PM CDT Hospital Encounter [facility] [address] [place] [address] [place] [address] [facility] [place] [address] Discharge Disposition: Home or Self Care Social History Tobacco Use Types Packs/Day Years [...] on file 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 Gender Identity Not on file Sexual Orientation [...] other half of the Golytely jug at 11 PM night [...] PRE-SEDATION H&P FOR OUTPATIENT PROCEDURES Igor Flores [id number] 1975 Procedure: colonoscopy Pre-procedure diagnosis: UC Past [...] AND BIOPSY; Surgeon: Kayode Ivey MD; [facility] [facility] [place] N/A 06/07/2023 Procedure: COLONOSCOPY, WITH BIOPSY; Surgeon: Igor Galeas MD; Location: [facility] [place]TH[place]IC SURGERY knee arthoscopy, high school, [...] flush 3 mL 3 mL Intracatheter Q8H [facility] Yuan Evans MD sodium chloride (PF) 0.9% PF flush 3 mL 3 mL Intracatheter q1 min prn Yuan Evans MD Allergies Allergen Reactions Sulfa Antibiotics [...] Info) Description 02/13/2025 3:20 PM CDT Appointment [facility] Imaging [address] [facility] [address] [place] [phone] Kayode Ivey MD 6 [place], [place] [address] 03/07/2025 3:00 PM CDT Ancillary Procedure [address] [place] [address] Srinivas Stern PA-C [address] [place] [address] 04/24/2025 2:40 PM CDT Virtual Visit [facility] [address] 4th [place] [phone] Alexis Torres MD 420 [place], [place] [address] Srinivas Stren PA-C [address] [place] [address]295 06/05/2025 3:30 PM CDT Virtual Visit [facility] GI MTM 909 [facility] [address] 2nd [place] [address] Kayode Ivey MD 6 [place] [address] Bandar Casas, [facility] 420 [facility] 812 [place], [place] [address] Pending Results Name Type Priority Associated Diagnoses [...] * COLONOSCOPY (01/14/2025 1:48 PM CDT) COLONOSCOPY [facility] Patient Name: Igor Flores Procedure Date: 01/14/2025 1:48 PM Date of : 1975 Admit Type: Outpatient Age: 49 Gender: Male Note Status: Finalized Attending MD: YUAN EVANS MD, Instrument Name: [id number] Procedure: Colonoscopy Indications: Disease activity assessment of [...] bowel preparation was evaluated using the BBPS ([place] Bowel Preparation Scale) with scores of: Right [...] 1:37 PM CDT 01/14/2025 1:48 PM CDT us Yuan Evans MD LAB - BEAKER POCT F inal Result Performing Organization Address City/[facility]/ZIP Co de Phone Number MG LABORATORY POC [facility] Clinics and Surgery [address] [address] documented in this encounter Visit Diagnoses Not on filedocumented in this encounter Additional Health Concerns Infection Onset Date Last Indicated Resolved Time MRSA-Contact Isolation Comment: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, chest, and elbow 02/17/2016 02/17/2016 Assessment Noted Time PHQ-9 Depression Total Score: 9 03/02/20 16 7:16 AM CDT documented as of this encounter Care Teams Team Manager Relationship Specialty Start Date End Date Jairo Vasquez MD PCP - General Family Medicine - Sports Medicine 12/29/15 Kylee Dailey MD 6 [facility] [place], [place] [address] Internal Medicine 04/01/17 Kayode Ivey MD 6 [place], [place] [address] Gastroenterology 04/01/17 Nicolasa Perez APRN ENGINEERING PROJECT DESIGNER [address] [place] [address] [id number] [place], [place] 257[address] Nurse Practitioner Nurse Practitioner 04/28/17 Srinivas Stern PA-C [address] [place] [address] [phone] Physician Probation And Parole Officer Physician Probation And Parole Officer 10/02/18 Srinivas Stern PA-C [address] [place] [address] 357885 Assigned Gastroenterology Provider 07/17/22 Bandar Casas RPH [address] 088[address] Pharmacist Pharmacist 08/18/23 Bandar Casas RPH [address] [phone] Assigned MTM Pharmacist 08/27/23 Ayana Zhang PA-C 5200 [place] [address] Physician Probation And Parole Officer Rheumatology 04/16/24 documented as of this encounter
--- OUTSIDE RECORDS SUMMARY | 2025-01-15 15:47 | XMS_ITS | Encounter Summary ---
Author Organization [place] Address [address] [place] [address] Care Team Providers Care Twine Reeling Machine Operator Name Role Phone Jairo Vasquez MD Primary Care Provider [phone] Kylee Dailey MD Unavailable + Kayode Ivey MD Unavailable [phone] Nicolasa Perez APRN TOP PRECIPITATOR OPERATOR Unavaila ble Loyda Dickey RN Unavailable [phone] Srinivas Stern PA-C Unavailable [phone] Srinivas Stern PA-C Unavailable +[phone] Violet Ta [facility] Unavailable +[phone] Sue Mckeon [facility] Unavailable [phone] Karen Trinh MD Unavailable +[phone] Violet Ta [facility] Unavailable +[phone] Violet Ta [facility] Unavailable [phone] Srinivas Stern PA-C Unavailable +[phone] Bandar Casas [facility] Unavailable [phone] Bandar Casas [facility] Unavailable Ayana Zhang PA-C Unavailable [phone] Srinivas Stern PA-C Unavailable [phone] Encounter Details Date Type Department Care Team (Late st Contact Info) Description 10/11/2018 MyC Medical Advice 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 Plan of Treatment Upcoming Encounters Date Type Department Care Team (Latest Contact Info) Description 02/13/2025 3:20 PM CDT Appointment [facility] Imaging [address] [facility] [address] [place] [phone] Kayode Ivey MD 6 [place] [address] 03/07/2025 3:00 PM CDT Ancillary Procedure [address] [place] [address] Srinivas Stern PA-C 9 [place], [place] [address] 04/24/2025 2:40 PM CDT Virtual Visit [facility] [address] [address] Alexis Torres MD 420 [place] [address] Srinivas Stern PA-C 909 [place], [place] [phone] 06/05/2025 3:30 PM CDT Virtual Visit [facility]ola [facility] 909 [facility] 2nd [place] [phone] Kayode Ivey MD 516 [place] [address] Bandar Casas, [facility] 420 [facility] 812 [place] [address] documented as of this encounter Visit Diagnoses Not on filedocumented in this encounter Additional Health Concerns Infection Onset Date Last Indicated Resolved Time MRSA-Contact Isolation Comment: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, chest, and elbow 02/17/2016 02/17/2016 Rule Out C-difficile 10/04/2023 10/05/2023 024 7:28 PM TOOL OPERATOR C-difficile 10/05/2023 10/05/2023 11/04/2023 11:3 9 PM TOOL OPERATOR Rule Out C-difficile 09/03/2024 09/04/2024 025 12:45 PM TOOL OPERATOR Assessment Noted Time PHQ-9 Depression Total Score: 9 03/02/20 16 7:16 AM CDT documented as of this encounter Care Teams Twine Reeling Machine Operator Relationship Specialty Start Date End Date Jairo Vasquez MD PCP - General Family Medicine - Sports Medicine 12/29/15 Kylee Dailey MD [address] [place] [address] 2A [place], [place] [phone] Internal Medicine 04/01/17 Kayode Ivey MD [address] [place] [address] Gastroenterology 04/01/17 Nicolasa Perez APRN TOP PRECIPITATOR OPERATOR [address] [place] [address] [id number] [place], [place] 3[address]35 Nurse Practitioner Nurse Practitioner 04/28/17 Loyda Dickey RN Nurse Coordinator Neurology 05/26/17 02/26/19 Srinivas Stern PA-C [address] [place] [address] Physician Data Processing Mechanic Physician Data Processing Mechanic 10/02/18 Srinivas Stern PA-C [address] [place] [address] Assigned Heart and Vascular Provider 11/19/20 06/27/21 Violet Ta [facility] [address] [place] [address] Pharmacist Pharmacist 12/29/20 02/08/21 Sue Mckeon [facility] [address] [place] [address] 248295 Pharmacist Pharmacist Financial Systems Analyst 02/09/21 06/29/22 Karen Trinh MD [address] [place] [address] [phone] Assigned Infectious Disease Provider 02/08/21 07/30/22 Violet Ta [facility] [address] [place] [address] 96 [place], [place] [phone] Assigned MTM Pharmacist 02/27/22 05/21/22 Violet Ta [facility] 480 [facility] 96 [place] [address] Assigned MTM Pharmacist 06/02/22 07/09/22 Srinivas Stern PA-C [address] [place] [address] Assigned Gastroenterology Provider 07/17/22 Bandar Casas RPH 420 [facility] 812 [place] [address] Pharmacist Pharmacist 08/18/23 Bandar Casas RP [address] [address] Assigned MTM Pharmacist 08/27/23 Ayana Zhang PA-C [address] [place] [address] Physician Data Processing Mechanic Rheumatology 04/16/24 Srinivas Stern PA-C 909 [place] [address] Home Infusion Following Provider Gastroenterology 07/11/24 10/05/24 documented as of this encounter
--- OUTSIDE RECORDS SUMMARY | 2025-01-15 15:47 | XMS_ITS | Encounter Summary ---
Author Organization [place] Address [address] [place] [address] Care Team Providers Care Senior Java Ui Developer Name Role Phone Jairo Vasquez MD Primary Care Provider [phone] Kylee Dailey MD Unavailable + Kayode Ivey MD Unavailable [phone] Nicolasa Perez APRN ACCOUNTANT MANAGER Unavaila ble Loyda Dickey RN Unavailable [phone] Srinivas Stern PA-C Unavailable [phone] Srinivas Stern PA-C Unavailable +[phone] Violet Ta [facility] Unavailable +[phone] Sue Mckeon [facility] Unavailable [phone] Karen Trinh MD Unavailable +[phone] Violet Ta [facility] Unavailable [phone] Violet Ta [facility] Unavailable +[phone] Srinivas Stern PA-C Unavailable +[phone] Bandar Casas [facility] Unavailable [phone] Bandar Casas [facility] Unavailable Ayana Zhang PA-C Unavailable [phone] Srinivas Stern PA-C Unavailable Encounter Details Date Type Department Care Team (Late st Contact Info) Description 12/23/2017 MyC Medical Advice [facility] Gastroenterology and IBD Clinic [address] [place] [address] Kayode Ivey MD 6 [place], [place] 330[address] Social History Tobacco Use Types Packs/Day Years Used Date Smoking Tobacco: Never Smokeless Tobacco: Never Alcohol Use Standard Drinks/Week Comments Yes 13 (1 standard drink = 0.6 oz pu re alcohol) MONTHLY Sex and Gender Information Value Date Recorded Sex Assigned at Not on file Legal Sex 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 GLUE SIZE MACHINE OPERATOR Gender Identity Not on file Sexual Orientation Not on file 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 Plan of Treatment Upcoming Encounters Date Type Department Care Team (Latest Contact Info) Description 02/13/2025 3:20 PM CDT Appointment [facility] Imaging [address] [employer] [address] [place] [phone] Kayode Ivey MD 6 [place] [address] 03/07/2025 3:00 PM CDT Ancillary Procedure [address] [place] [address] Srinivas Stern PA-C 9 [place], [place] [address] 04/24/2025 2:40 PM CDT Virtual Visit [facility] Gastroenterology Clinic [address] [address] Alexis Torres MD 420 [place] [address] Srinivas Stern PA-C 909 [place], [place] [phone] 06/05/2025 3:30 PM CDT Virtual Visit [facility]ola [facility] 909 [facility] 2nd [place] [phone] Kayode Ivey MD 516 [place] [address] Bandar Casas, [facility] 420 [facility] 812 [place] [address] documented as of this encounter Visit Diagnoses Not on filedocumented in this encounter Additional Health Concerns Infection Onset Date Last Indicated Resolved Time MRSA-Contact Isolation Comment: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, chest, and elbow 02/17/2016 02/17/2016 Rule Out C-difficile 10/04/2023 10/05/2023 024 7:28 PM GLUE SIZE MACHINE OPERATOR C-difficile 10/05/2023 10/05/2023 11/04/2023 11:3 9 PM GLUE SIZE MACHINE OPERATOR Rule Out C-difficile 09/03/2024 09/04/2024 025 12:45 PM GLUE SIZE MACHINE OPERATOR Assessment Noted Time PHQ-9 Depression Total Score: 9 03/02/20 16 7:16 AM CDT documented as of this encounter Care Teams Senior Java Ui Developer Relationship Specialty Start Date End Date Jairo Vasquez MD PCP - General Family Medicine - Sports Medicine 12/29/15 Kylee Dailey MD [address] [place] [address] 2A [place], [place] [phone] Internal Medicine 04/01/17 Kayode Ivey MD [address] [place] [address] Gastroenterology 04/01/17 Nicolasa Perez APRN ACCOUNTANT MANAGER [address] [place] [address] [id number] [place], [place] 989815 Nurse Practitioner Nurse Practitioner 04/28/17 Loyda Dcikey RN Nurse Coordinator Neurology 05/26/17 02/26/19 Srinivas Stern PA-C [address] [place] [address] Physician Director Of Accreditation Physician Director Of Accreditation 10/02/18 Srinivas Stern PA-C [address] [place] [address] Assigned Heart and Vascular Provider 11/19/20 06/27/21 Violet Ta [facility] [address] [place] [address] Pharmacist Pharmacist 12/29/20 02/08/21 Sue Mckeon [facility] [address] [place] [address] [phone] Pharmacist Pharmacist Marketing Database Coordinator 02/09/21 06/29/22 Karen Trinh MD [address] [place] [address] [phone] Assigned Infectious Disease Provider 02/08/21 07/30/22 Violet Ta [facility] [address] [place] [address] 96 [place], [place] [phone] Assigned MTM Pharmacist 02/27/22 05/21/22 Violet Ta [facility] 480 [facility] [address] [place] [address] Assigned MTM Pharmacist 06/02/22 07/09/22 Srinivas Stern PA-C [address] [place] [address] Assigned Gastroenterology Provider 07/17/22 Bandar Casas RPH 420 [facility] 812 [place] [address] Pharmacist Pharmacist 08/18/23 Bandar Casas RP [address] [address] Assigned MTM Pharmacist 08/27/23 Ayana Zhang PA-C [address] [place] [address] Physician Director Of Accreditation Rheumatology 04/16/24 Srinivas Stern PA-C 909 [place] [address] Home Infusion Following Provider Gastroenterology 07/11/24 10/05/24 documented as of this encounter
--- OUTSIDE RECORDS SUMMARY | 2025-01-15 15:47 | XMS_ITS | Encounter Summary ---
Author Organization [place] Address [address] [place] [address] Care Team Providers Care Silvering Department Supervisor Name Role Phone Jairo Vasquez MD Primary Care Provider [phone] Kylee Dailey MD Unavailable + Kayode Ivey MD Unavailable [phone] Nicolasa Perez APRN STEAM SHOVEL RUNNER Unavaila ble Loyda Dickey RN Unavailable [phone] Srinivas Stern PA-C Unavailable +[phone] rSinivas Stern PA-C Unavailable +[phone] Violet Ta [facility] Unavailable +[phone] Sue Mckeon [facility] Unavailable +[phone] Karen Trinh MD Unavailable +[phone] Violet Ta [facility] Unavailable +[phone] Violet Ta [facility] Unavailable +[phone] Srinivas Stern PA-C Unavailable +[phone] Bandar Casas [facility] Unavailable [phone] Bandar Casas [facility] Unavailable Ayana Zhang PA-C Unavailable [phone] Srinivas Stern PA-C Unavailable Encounter Details Date Type Department Care Team (Late st Contact Info) Description 03/28/2016 MyC Medical Advice [facility] Gastroenterology and IBD Clinic [address] [place] [address] Kayode Ivey MD 6 [place] [address] Social History Tobacco Use Types Packs/Day Years Used Date Smoking Tobacco: Never Alcohol Use Standard Drinks/Week Comments No 0 (1 standard drink = 0.6 oz pur e alcohol) not currently Sex and Gender Information Value Date Recorded Sex Assigned at Not on file Legal Sex 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 TERMITE CONTROL SERVICER Gender Identity Not on file Sexual Orientation Not on file 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 Gastroenterology Clinic [address] [address] Alexis Torres MD 420 [place] [address] Srinivas Stern PA-C 909 [place], [place] [address]135 06/05/2025 3:30 PM CDT Virtual Visit Viola [facility] MTM 909 [facility] [address] 2nd [place] [phone] Kayode Ivey MD 516 [place] [address] Bandar Casas, [facility] 420 [facility] 812 [place], [place] 796985 documented as of this encounter Visit Diagnoses Not on filedocumented in this encounter Additional Health Concerns Infection Onset Date Last Indicated Resolved Time MRSA-Contact Isolation Comment: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, chest, and elbow 02/17/2016 02/17/2016 Rule Out C-difficile 10/04/2023 10/05/2023 024 7:28 PM TERMITE CONTROL SERVICER C-difficile 10/05/2023 10/05/2023 11/04/2023 11:3 9 PM TERMITE CONTROL SERVICER Rule Out C-difficile 09/03/2024 09/04/2024 025 12:45 PM TERMITE CONTROL SERVICER Assessment Noted Time PHQ-9 Depression Total Score: 9 03/02/20 16 7:16 AM CDT documented as of this encounter Care Teams Silvering Department Supervisor Relationship Specialty Start Date End Date Jairo Vasquez MD PCP - General Family Medicine - Sports Medicine 12/29/15 Kylee Dailey MD [address] [place] [address] 2A [place] [address] Internal Medicine 04/01/17 Kayode Ivey MD [address] [place] [address] Gastroenterology 04/01/17 Nicolasa Perez APRN STEAM SHOVEL RUNNER [address] [place] [address] [id number] [place], [place] 966[address] Nurse Practitioner Nurse Practitioner 04/28/17 Loyda Dickey RN Nurse Coordinator Neurology 05/26/17 02/26/19 Srinivas Stern PA-C [address] [place] [address] [id number] Physician Dry End Tester Physician Dry End Tester 10/02/18 Srinivas Stern PA-C [address] [place] [address] [phone] Assigned Heart and Vascular Provider 11/19/20 06/27/21 Violet Ta [facility] [address] [place] [address] Pharmacist Pharmacist 12/29/20 02/08/21 Sue Mckeon [facility] [address] [place] [address] [phone] Pharmacist Pharmacist Director [employer] 02/09/21 06/29/22 Karen Trinh MD [address] [place] [address] [phone] Assigned Infectious Disease Provider 02/08/21 07/30/22 Violet Ta [facility] [address] [place] [address] [phone] Assigned MTM Pharmacist 02/27/22 05/21/22 Violet Ta [facility] [address] [place] [address] [address] [place] [address] Assigned MTM Pharmacist 06/02/22 07/09/22 Srinivas Stern PA-C 909 [place] [address] Assigned Gastroenterology Provider 07/17/22 Bandar Casas RPH [address] [address] Pharmacist Pharmacist 08/18/23 Bandar Casas RPH [address] [place] [address] Assigned MTM Pharmacist 08/27/23 Ayana Zhang PA-C [address] [place] [address] Physician Dry End Tester Rheumatology 04/16/24 Srinivas Stern PA-C [address] [place] [address] Home Infusion Following Provider Gastroenterology 07/11/24 10/05/24 documented as of this encounter
--- OUTSIDE RECORDS SUMMARY | 2025-01-15 15:47 | XMS_ITS | Encounter Summary ---
Author Organization [facility] Address [address] [place] [address]275 Care Team Providers Care Conventional Machinist Name Role Phone Jairo Vasquez MD Primary Care Provider [phone] Kylee Dailey MD Unavailable + Kayode Ivey MD Unavailable [phone] Nicolasa Perez APRN ENTRY LEVEL DRAFTER Unavaila ble Loyda Dickey RN Unavailable +[phone] Srinivas Stern PA-C Unavailable +[phone] Srinivas Stern PA-C Unavailable +[phone] Violet Ta [facility] Unavailable +[phone] Sue Mckeon [facility] Unavailable +[phone] Karen Trinh MD Unavailable +[phone] Violet Ta [facility] Unavailable +[phone] Violet Ta [facility] Unavailable +[phone] Srinivas Stern PA-C Unavailable +[phone] Bandar Csaas [facility] Unavailable [phone] Bandar Casas [facility] Unavailable Ayana Zhang PA-C Unavailable +[phone] Srinivas Stern PA-C Unavailable Encounter Details Date Type Department Care Team (Late st Contact Info) Description 03/28/2016 MyC Medical Advice [facility] [address] [place] [address] Kayode Ivey MD 6 [place] [address] Social History Tobacco Use Types Packs/Day Years Used Date Smoking Tobacco: Never Alcohol Use Standard Drinks/Week Comments No 0 (1 standard drink = 0.6 oz pur e alcohol) not currently Sex and Gender Information Value Date Recorded Sex Assigned at Not on file Legal Sex 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 CORK TIPPER Gender Identity Not on file Sexual Orientation Not on file 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 Plan of Treatment Upcoming Encounters Date Type Department Care Team (Latest Contact Info) Description 02/13/2025 3:20 PM CDT Appointment [facility] Care [facility] Imaging [address] [facility] [address] [place] [phone] Kayode Ivey MD 6 [place] [address] 03/07/2025 3:00 PM CDT Ancillary Procedure [address] [place] [address] Srinivas Stern PA-C [address] [place] [address] [phone] 04/24/2025 2:40 PM CDT Virtual Visit [facility] [address] [address] Alexis Torres MD 420 [place] [address] Srinivas Stern PA-C 909 [place], [place] 242565 06/05/2025 3:30 PM CDT Virtual Visit Viola MADERA MTM 909 [facility] [address] 2nd [place] [phone] Kayode Ivey MD 516 [place] [address] Bandar Casas, [facility] 420 [facility] 812 [place], [place] 225875 documented as of this encounter Visit Diagnoses Not on filedocumented in this encounter Additional Health Concerns Infection Onset Date Last Indicated Resolved Time MRSA-Contact Isolation Comment: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, chest, and elbow 02/17/2016 02/17/2016 Rule Out C-difficile 10/04/2023 10/05/2023 024 7:28 PM CORK TIPPER C-difficile 10/05/2023 10/05/2023 11/04/2023 11:3 9 PM CORK TIPPER Rule Out C-difficile 09/03/2024 09/04/2024 025 12:45 PM CORK TIPPER Assessment Noted Time PHQ-9 Depression Total Score: 9 03/02/20 16 7:16 AM CDT documented as of this encounter Care Teams Conventional Machinist Relationship Specialty Start Date End Date Jairo Vasquez MD PCP - General Family Medicine - Sports Medicine 12/29/15 Kylee Dailey MD [address] [place] [address] 2[address] [place] [address] Internal Medicine 04/01/17 Kayode Ivey MD [address] [place] [address] Gastroenterology 04/01/17 Nicolasa Perez APRN ENTRY LEVEL DRAFTER [address] [place] [address] [id number] [place], [place] [phone] Nurse Practitioner Nurse Practitioner 04/28/17 Loyda Dickey RN Nurse Coordinator Neurology 05/26/17 02/26/19 Srinivas Stern PA-C [address] [place] [address] [phone] Physician Instrument Operator Physician Instrument Operator 10/02/18 Srinivas Stern PA-C [address] [place] [address] [id number] Assigned Heart and Vascular Provider 11/19/20 06/27/21 Violet Ta [facility] [address] [place] [address] Pharmacist Pharmacist 12/29/20 02/08/21 Sue Mckeon [facility] [address] [place] [address] [phone] Pharmacist Pharmacist Credentialer 02/09/21 06/29/22 Karen Trinh MD [address] [place] [address] [phone] Assigned Infectious Disease Provider 02/08/21 07/30/22 Violet Ta [facility] [address] [place] [address] [phone] Assigned MTM Pharmacist 02/27/22 05/21/22 Violet Ta [facility] [address] [place] [address] [address] [place] [address] Assigned MTM Pharmacist 06/02/22 07/09/22 Srinivas Stern PA-C 909 [place] [address] Assigned Gastroenterology Provider 07/17/22 Bandar Casas RPH [address] [address] Pharmacist Pharmacist 08/18/23 Bandar Caass RPH [address] [place] [address] Assigned MTM Pharmacist 08/27/23 Ayana Zhang PA-C [address] [place] [address] Physician Instrument Operator Rheumatology 04/16/24 Srinivas Stern PA-C [address] [place] [address] Home Infusion Following Provider Gastroenterology 07/11/24 10/05/24 documented as of this encounter
--- OUTSIDE RECORDS SUMMARY | 2025-01-15 15:47 | XMS_ITS | Encounter Summary ---
Author Organization [facility] Address [address] [place] [address] Care Team Providers Care Dairy Quality Assurance Officer Name Role Phone Jairo Vasquez MD Primary Care Provider [phone] Kylee Dailey MD Unavailable + Kayode Ivey MD Unavailable [phone] Nicolasa Perez APRN MACHINE HOOP MAKER HELPER Unavaila ble Loyda Dickey RN Unavailable [phone] Srinivas Stern PA-C Unavailable +[phone] Srinivas Stern PA-C Unavailable +[phone] Violet Ta [facility] Unavailable +[phone] Sue Mckeon [facility] Unavailable +[phone] Karen Trinh MD Unavailable +[phone] Violet Ta [facility] Unavailable +[phone] Vioelt Ta [facility] Unavailable +[phone] Srinivas Stern PA-C Unavailable +[phone] Bandar Casas [facility] Unavailable +[phone] Bandar Casas [facility] Unavailable +[phone] Ayana Zhang PA-C Unavailable [phone] Srinivas Stern PA-C Unavailable Encounter Details Date Type Department Care Team (Late st Contact Info) Description 03/16/2016 MyC Medical Advice [facility] Gastroenterology and IBD Clinic [address] [place] [address] Kayode Ivey MD 6 [place] [address] Social History Tobacco Use Types Packs/Day Years Used Date Smoking Tobacco: Never Alcohol Use Standard Drinks/Week Comments No 0 (1 standard drink = 0.6 oz pur e alcohol) not currently Sex and Gender Information Value Date Recorded Sex Assigned at Not on file Legal Sex 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 TORTS LAW PROFESSOR Gender Identity Not on file Sexual Orientation Not on file 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 Care Center Imaging [address] [facility] [address] [place] [phone] Kayode Ivey MD 6 [place] [address] 03/07/2025 3:00 PM CDT Ancillary Procedure [address] [place] [address] Srinivas Stern PA-C [address] [place] [address] [phone] 04/24/2025 2:40 PM CDT Virtual Visit [facility] Gastroenterology Clinic [address] [address] Alexis Torres MD 420 [place] [address] Srinivas Stern PA-C 909 [place], [place] 082985 06/05/2025 3:30 PM CDT Virtual Visit Viola MADERA MTM 909 [facility] [address] 2nd [place] [phone] Kayode Ivey MD 516 [place] [address] Bandar Casas, [facility] 420 [facility] 812 [place], [place] 889225 documented as of this encounter Visit Diagnoses Not on filedocumented in this encounter Additional Health Concerns Infection Onset Date Last Indicated Resolved Time MRSA-Contact Isolation Comment: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, chest, and elbow 02/17/2016 02/17/2016 Rule Out C-difficile 10/04/2023 10/05/2023 024 7:28 PM TORTS LAW PROFESSOR C-difficile 10/05/2023 10/05/2023 11/04/2023 11:3 9 PM TORTS LAW PROFESSOR Rule Out C-difficile 09/03/2024 09/04/2024 025 12:45 PM TORTS LAW PROFESSOR Assessment Noted Time PHQ-9 Depression Total Score: 9 03/02/20 16 7:16 AM CDT documented as of this encounter Care Teams Dairy Quality Assurance Officer Relationship Specialty Start Date End Date Jairo Vasquez MD PCP - General Family Medicine - Sports Medicine 12/29/15 Kylee Dailey MD [address] [place] [address] 2[address] [place] [address] Internal Medicine 04/01/17 Kayode Ivey MD [address] [place] [address] Gastroenterology 04/01/17 Nicolasa Perez APRN MACHINE HOOP MAKER HELPER [address] [place] [address] [id number] [place], [place] 074555 Nurse Practitioner Nurse Practitioner 04/28/17 Loyda Dickey RN Nurse Coordinator Neurology 05/26/17 02/26/19 Srinivas Stern PA-C [address] [place] [address] [phone] Physician Psychological Examiner Physician Psychological Examiner 10/02/18 Srinivas Stern PA-C [address] [place] [address] [phone] Assigned Heart and Vascular Provider 11/19/20 06/27/21 Violet Ta [facility] [address] [place] [address] Pharmacist Pharmacist 12/29/20 02/08/21 Sue Mckeon [facility] [address] [place] [address] [phone] Pharmacist Pharmacist Home Insurance Agent 02/09/21 06/29/22 Karen Trinh MD [address] [place] [address] [phone] Assigned Infectious Disease Provider 02/08/21 07/30/22 Violet Ta [facility] [address] [place] [address] [phone] Assigned MTM Pharmacist 02/27/22 05/21/22 Violet Ta [facility] [address] [place] [address] [address] [place] [address] Assigned MTM Pharmacist 06/02/22 07/09/22 Srinivas Stern PA-C 909 [place] [address] Assigned Gastroenterology Provider 07/17/22 Bandar Casas RPH [address] [address] Pharmacist Pharmacist 08/18/23 Bandar Casas RPH [address] [place] [address] Assigned MTM Pharmacist 08/27/23 Ayana Zhang PA-C [address] [place] [address] Physician Psychological Examiner Rheumatology 04/16/24 Srinivas Stern PA-C [address] [place] [address] Home Infusion Following Provider Gastroenterology 07/11/24 10/05/24 documented as of this encounter
--- OUTSIDE RECORDS SUMMARY | 2025-01-15 15:47 | XMS_ITS | Encounter Summary ---
Author Organization [facility] Address [address] [place] [address] 99863 Care Team Providers Care Gasoline Tractor Operator Name Role Phone Jairo Vasquez MD Primary Care Provider [phone] Kylee Dailey MD Unavailable + Kayode Ivey MD Unavailable [phone] Nicolasa Perez APRN NIGHT TIME NANNY Unavaila ble Srinivas Stern-C Unavailable [phone] Srinivas Stern-C Unavailable Bandar Casas [facility] Unavailable Bandar Casas [facility] Unavailable [phone] Ayana Zhang-C Unavailable Reason for Referral * Diagnostic Imaging Ultrasound (Routine) - Pending Review Specialty Diagnoses / Procedures Referred By Controberto carlos t Referred To Contact Radiology. 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 Specialty Care Center Imaging [address] [facility] [address] [place] [address] Kayode Ivey MD 6 [place], [place] 217295 03/07/2025 3:00 PM CDT Ancillary Procedure [facility] [address] [facility] [address] [place] [address] Srinivas Stern PA-C [address] [place] [address] 04/24/2025 2:40 PM CDT Virtual Visit [facility] Gastroenterology [address] [phone] Alexis Torres MD 420 [place] [address] Srinivas Stern PA-C 909 [place], [place] 987725 06/05/2025 3:30 PM CDT Virtual Visit [facility] 909 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, chest, and elbow 02/17/2016 02/17/2016 Assessment Noted Time PHQ-9 Depression Total Score: 9 03/02/20 16 7:16 AM CDT documented as of this encounter Care Teams Gasoline Tractor Operator Relationship Specialty Start Date End Date Jairo Vasquez MD PCP - General Family Medicine - Sports Medicine 12/29/15 Kylee Dailey MD [address] [place] [address] 2[address] [place] [address] Internal Medicine 04/01/17 Kayode Ivey MD [address] [place] [address] 254305 Gastroenterology 04/01/17 Nicolasa Perez APRN CNP 909 [facility] [id number] [place], [place] 295445 Nurse Practitioner Nurse Practitioner 04/28/17 Srinivas Stern PA-C 909 [place], [place] 162455 Physician Customer Experience Strategist Physician Customer Experience Strategist 10/02/18 Srinivas Stern PA-C 909 [place], [place] 484235 Assigned Gastroenterology Provider 07/17/22 Bandar Casas RPH 420 [facility] 812 [place], [place] 360415 Pharmacist Pharmacist 08/18/23 Bandar Casas RPH 420 [facility] 812 [place], [place] 489385 Assigned MTM Pharmacist 08/27/23 Ayana Zhang PA-C 5200 [place] [address] Physician Customer Experience Strategist Rheumatology 04/16/24 documented as of this encounter
--- OUTSIDE RECORDS SUMMARY | 2025-01-15 15:47 | XMS_ITS | Encounter Summary ---
Author Organization [facility] Address [address] [place] [address] 12656 Care Team Providers Care Grab Setter Name Role Phone Jairo Vasquez MD Primary Care Provider [phone] Kylee Dailey MD Unavailable + Kayode Ivey MD Unavailable [phone] Nicolasa Perez APRN COMPUTER PROGRAMMER Unavaila ble Srinivas Stern PA-C Unavailable +[phone] Srinivas Stern PA-C Unavailable [phone] Violet Ta [facility] Unavailable +[phone] Sue Mckeon [facility] Unavailable [phone] Karen Trinh MD Unavailable [phone] Violet Ta [facility] Unavailable [phone] Violet Ta [facility] Unavailable +[phone] Srinivas Stern PA-C Unavailable [phone] Bandar Casas [facility] Unavailable [phone] Bandar Casas [facility] Unavailable [phone] Ayana Zhang PA-C Unavailable [phone] Srinivas Stern PA-C Unavailable [phone] Encounter Details Date Type Department Care Team (Late st Contact Info) Description 12/26/2019 MyC Medical Advice [facility] Gastroenterology and IBD Clinic [address] [place] [address] Blanca Menezes, RN Social History Tobacco Use Types Packs/Day Years Used Date Smoking Tobacco: Never Smokeless Tobacco: Never Alcohol Use Standard Drinks/Week Comments Yes 13 (1 standard drink = 0.6 oz pu re alcohol) MONTHLY PHQ-2 Answer Date Recorded PHQ-2 Score 2 08/20/2019 Sex and Gender Information Value Date Recorded Sex Assigned at Not on file 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 No / Unsure 12/27/2019 9:31 AM CDT documented as of this encounter Plan of Treatment Upcoming Encounters Date Type Department Care Team (Latest Contact Info) Description 02/13/2025 3:20 PM CDT Appointment [facility] Specialty Care Center Imaging [address] [facility] [address] [place] [address] Kayode Ivey MD 516 [place], [place] 501155 03/07/2025 3:00 PM CDT Ancillary Procedure [facility] [address] [facility] [address] [place] [address] Srinivas Stern PA-C 909 [place] [address] 04/24/2025 2:40 PM CDT Virtual Visit [facility] Gastroenterology Clinic [address] [phone] Alexis Torres MD 420 [place] [address] Srinivas Stern PA-C 909 [place], [place] 609645 06/05/2025 3:30 PM CDT Virtual Visit [facility] 909 [facility] 2nd [place] [address] Kayode Ivey MD 516 [place], [place] [phone] Bandar Casas, [facility] 420 [facility] 812 [place], [place] 445115 documented as of this encounter Visit Diagnoses Not on filedocumented in this encounter Additional Health Concerns Infection Onset Date Last Indicated Resolved Time MRSA-Contact Isolation Comment: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, chest, and elbow 02/17/2016 02/17/2016 Rule Out C-difficile 10/04/2023 10/05/2023 024 7:28 PM TRUCK CHAUFFEUR C-difficile 10/05/2023 10/05/2023 11/04/2023 11:3 9 PM TRUCK CHAUFFEUR Rule Out C-difficile 09/03/2024 09/04/2024 025 12:45 PM TRUCK CHAUFFEUR Assessment Noted Time PHQ-9 Depression Total Score: 9 03/02/20 16 7:16 AM CDT documented as of this encounter Care Teams Grab Setter Relationship Specialty Start Date End Date Jairo Vasquez MD PCP - General Family Medicine - Sports Medicine 12/29/15 Kylee Dailey MD [address] [place] [address] 2[address] [place] [address] Internal Medicine 04/01/17 Kayode Ivey MD [address] [place] [address] Gastroenterology 04/01/17 Nicolasa Perez APRN COMPUTER PROGRAMMER [address] [place] [address] [id number] [place] [address] Nurse Practitioner Nurse Practitioner 04/28/17 Srinivas Stern PA-C [address] [place] [address] Physician Aerial Planting And Cultivation Manager Physician Aerial Planting And Cultivation Manager 10/02/18 Srinivas Stern PA-C [address] [place] [address] Assigned Heart and Vascular Provider 11/19/20 06/27/21 [facility] [address] [place] [address] Pharmacist Pharmacist 12/29/20 02/08/21 Sue Mckeon [facility] [address] [place] [address] Pharmacist Pharmacist Automatic Door Mechanic 02/09/21 06/29/22 Karen Trinh MD [address] [place] [address] [phone] Assigned Infectious Disease Provider 02/08/21 07/30/22 Violet Ta, [facility] [address] [place] [address] Assigned MTM Pharmacist 02/27/22 05/21/22 Violet Ta [facility] 480 [facility] [address] [place] [address] Assigned MTM Pharmacist 06/02/22 07/09/22 Srinivas Stern PA-C 909 [place] [address] Assigned Gastroenterology Provider 07/17/22 Bandar Casas [facility] [address] [address] Pharmacist Pharmacist 08/18/23 Bandar Casas [facility] [address] [phone] Assigned MTM Pharmacist 08/27/23 Ayana Zhang PA-C [address] [place] [address] Physician Aerial Planting And Cultivation Manager Rheumatology 04/16/24 Srinivas Stern PA-C 909 [place] [address] Home Infusion Following Provider Gastroenterology 07/11/24 10/05/24 documented as of this encounter
--- OUTSIDE RECORDS SUMMARY | 2025-01-15 15:47 | XMS_ITS | Encounter Summary ---
Author Organization [place] Address [address] [place] [address] Care Team Providers Care Lawn And Garden Technician Name Role Phone Jairo Vasquez MD Primary Care Provider [phone] Kylee Dailey MD Unavailable + Kayode Ivey MD Unavailable [phone] Nicolasa Perez APRN PASTEURIZING SUPERVISOR Unavaila ble Srinivas Stern PA-C Unavailable +[phone] Srinivas Stern PA-C Unavailable +[phone] Violet Ta [facility] Unavailable +[phone] Sue Mckeon [facility] Unavailable [phone] Karen Trinh MD Unavailable [phone] Violet Ta [facility] Unavailable [phone] Violet Ta [facility] Unavailable +[phone] Srinivas Stern PA-C Unavailable +[phone] Bandar Casas [facility] Unavailable [phone] Bandar Casas [facility] Unavailable +[phone] Ayana Zhang PA-C Unavailable [phone] Srinivas Stern PA-C Unavailable [phone] Encounter Details Date Type Department Care Team (Late st Contact Info) Description 10/22/2019 MyC Medical Advice [facility] [address] [place] [address] Kayode Ivey MD 6 [place], [place] [id number] Social History Tobacco Use Types Packs/Day Years Used Date Smoking Tobacco: Never Smokeless Tobacco: Never Alcohol Use Standard Drinks/Week Comments Yes 13 (1 standard drink = 0.6 oz pu re alcohol) MONTHLY PHQ-2 Answer Date Recorded PHQ-2 Score 2 08/20/2019 Sex and Gender Information Value Date Recorded Sex Assigned at Not on file 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 [address] [facility] [address] [place] [phone] Kayode Ivey MD 6 [place], [place] [id number] 03/07/2025 3:00 PM CDT Ancillary Procedure [address] [place] [address] Srinivas Stern PA-C [address] [place] [id number] 04/24/2025 2:40 PM CDT Virtual Visit [facility] [address] [phone] Alexis Torres MD 420 [place] [address] Srinivas Stern PA-C 909 [place], [place] 850895 06/05/2025 3:30 PM CDT Virtual Visit Viola MADERA MTM 909 [facility] [address] 2nd [place] [phone] Kayode Ivey MD 516 [place] [address] Bandar Casas, [facility] 420 [facility] 812 [place], [place] 7[address]15 documented as of this encounter Visit Diagnoses Not on filedocumented in this encounter Additional Health Concerns Infection Onset Date Last Indicated Resolved Time MRSA-Contact Isolation Comment: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, chest, and elbow 02/17/2016 02/17/2016 Rule Out C-difficile 10/04/2023 10/05/2023 024 7:28 PM BRAKE OPERATOR C-difficile 10/05/2023 10/05/2023 11/04/2023 11:3 9 PM BRAKE OPERATOR Rule Out C-difficile 09/03/2024 09/04/2024 025 12:45 PM BRAKE OPERATOR Assessment Noted Time PHQ-9 Depression Total Score: 9 03/02/20 16 7:16 AM CDT documented as of this encounter Care Teams Lawn And Garden Technician Relationship Specialty Start Date End Date Jairo Vasquez MD PCP - General Family Medicine - Sports Medicine 12/29/15 Kylee Dailey MD [address] [place] [address] [address] [place] [address] Internal Medicine 04/01/17 Kayode Ivey MD [address] [place] [address] Gastroenterology 04/01/17 Nicolasa Perze APRN PASTEURIZING SUPERVISOR [address] [place] [place] [address] [id number] [place] [address] Nurse Practitioner Nurse Practitioner 04/28/17 Srinivas Stern PA-C [address] [place] [address] Physician Lasting Floorworker Physician Lasting Floorworker 10/02/18 Srinivas Stern PA-C [address] [place] [address] Assigned Heart and Vascular Provider 11/19/20 06/27/21 Violet Ta [facility] [address] [place] [address] Pharmacist Pharmacist 12/29/20 02/08/21 Sue Mckeon [facility] [address] [place] [address] Pharmacist Pharmacist Stock Grader 02/09/21 06/29/22 Karen Trinh MD [address] [place] [address] Assigned Infectious Disease Provider 02/08/21 07/30/22 Violet Ta [facility] [address] [place] [address] [address] [place] [address] Assigned MTM Pharmacist 02/27/22 05/21/22 Violet Ta [facility] [address] [place] [address] Assigned MTM Pharmacist 06/02/22 07/09/22 Srinivas Stern PA-C 909 [place] [address] Assigned Gastroenterology Provider 07/17/22 Bandar Casas RP [address] 092205 Pharmacist Pharmacist 08/18/23 Bandar Casas [facility] [address] [address] Assigned MTM Pharmacist 08/27/23 Ayana Zhang PA-C 5200 [place] [address] Physician Lasting Floorworker Rheumatology 04/16/24 Srinivas Stern PA-C 909 [place] [address] Home Infusion Following Provider Gastroenterology 07/11/24 10/05/24 documented as of this encounter
--- OUTSIDE RECORDS SUMMARY | 2025-01-15 15:47 | XMS_ITS | Encounter Summary ---
Author Organization [place] Address [address] [place] [address] Care Team Providers Care Bid Writer Name Role Phone Jairo Vasquez MD Primary Care Provider [phone] Kylee Dailey MD Unavailable + Kayode Ivey MD Unavailable [phone] Nicolasa Perez APRN GAS PUMPING STATION HELPER Unavaila ble Srinivas Stern PA-C Unavailable [phone] Srinivas Stern PA-C Unavailable [phone] Violet Ta [facility] Unavailable [phone] Sue Mckeon [facility] Unavailable [phone] Karen Trinh MD Unavailable [phone] Violet Ta [facility] Unavailable [phone] Violet Ta [facility] Unavailable +[phone] Srinivas Stern PA-C Unavailable [phone] Bandar Casas [facility] Unavailable [phone] Bandar Casas [facility] Unavailable [phone] Ayana Zhang PA-C Unavailable [phone] Srinivas Stern PA-C Unavailable [phone] Encounter Details Date Type Department Care Team (Late st Contact Info) Description 06/06/2019 MyC Medical Advice [facility] Gastroenterology and IBD Clinic [address] [place] [phone] Blanca Menezes, RN Social History Tobacco Use Types Packs/Day Years Used Date Smoking Tobacco: Never Smokeless Tobacco: Never Alcohol Use Standard Drinks/Week Comments Yes 13 (1 standard drink = 0.6 oz pu re alcohol) MONTHLY Sex and Gender Information Value Date Recorded Sex Assigned at Not on file 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 Imaging [address] [facility] [address] [place] [phone] Kayode Ivey MD 516 [place], [place] [address] 03/07/2025 3:00 PM CDT Ancillary Procedure [address] [place] [address] Srinivas Stern PABuckyC [address] [place] [address] 433465 04/24/2025 2:40 PM CDT Virtual Visit [facility] [address] [address] Alexis Torres MD 420 [place], [place] [phone] Srinivas Stern PAErica 9 [place], [place] 2[address]45 06/05/2025 3:30 PM CDT Virtual Visit [facility] MTM 909 [facility] [address] 2nd [place] [phone] Kayode Ivey MD 516 [place], [place] 300145 Bandar Casas, [facility] 420 [facility] 812 [place], [place] 639405 documented as of this encounter Visit Diagnoses Not on filedocumented in this encounter Additional Health Concerns Infection Onset Date Last Indicated Resolved Time MRSA-Contact Isolation Comment: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, chest, and elbow 02/17/2016 02/17/2016 Rule Out C-difficile 10/04/2023 10/05/2023 024 7:28 PM PIPEFITTER WELDER C-difficile 10/05/2023 10/05/2023 11/04/2023 11:3 9 PM PIPEFITTER WELDER Rule Out C-difficile 09/03/2024 09/04/2024 025 12:45 PM PIPEFITTER WELDER Assessment Noted Time PHQ-9 Depression Total Score: 9 03/02/20 16 7:16 AM CDT documented as of this encounter Care Teams Bid Writer Relationship Specialty Start Date End Date Jairo Vasquez MD PCP - General Family Medicine - Sports Medicine 12/29/15 Kylee Dailey MD [address] [place] [address] 2[address] [place] [address] Internal Medicine 04/01/17 Kayode Ivey MD [address] [place] [address] Gastroenterology 04/01/17 Nicolasa Perez APRN GAS PUMPING STATION HELPER [address] [place] [address] [id number] [place] [address] Nurse Practitioner Nurse Practitioner 04/28/17 Srinivas Stern PA-C [address] [place] [address] Physician Commissary Manager Physician Commissary Manager 10/02/18 Srinivas Stern PA-C [address] [place] [address] Assigned Heart and Vascular Provider 11/19/20 06/27/21 Violet Ta [facility] [address] [place] [address] Pharmacist Pharmacist 12/29/20 02/08/21 Sue Mckeon [facility] [address] [place] [address] Pharmacist Pharmacist Anesthetic Assistant 02/09/21 06/29/22 Karen Trinh MD [address] [place] [address] Assigned Infectious Disease Provider 02/08/21 07/30/22 Violet Ta [facility] [address] [place] [address] Assigned MTM Pharmacist 02/27/22 05/21/22 Violet Ta, [facility] [address] [place] [address] Assigned MTM Pharmacist 06/02/22 07/09/22 Srinivas Stern PA-C 909 [place] [address] Assigned Gastroenterology Provider 07/17/22 Bandar Casas RPH [address] [place] [address] 072105 Pharmacist Pharmacist 08/18/23 Bandar Casas [facility] [address] [address] Assigned MTM Pharmacist 08/27/23 Ayana Zhang PA-C 5200 [place] [address] Physician Commissary Manager Rheumatology 04/16/24 Srinivas Stern PA-C 909 [place], [place] 748075 Home Infusion Following Provider Gastroenterology 07/11/24 10/05/24 documented as of this encounter
--- OUTSIDE RECORDS SUMMARY | 2025-01-15 15:47 | XMS_ITS | Encounter Summary ---
Author Organization [place] Address [address] [place] [address]. [place] [address] Care Team Providers Care Industrial Engineering Intern Name Role Phone Jairo Vasquez MD Primary Care Provider Kylee Dailey MD Unavailable + Kayode Ivey MD Unavailable [phone] Nicolasa Perez APRN PROMOTION MANAGER Unavaila ble Srinivas Stern-C Unavailable [phone] Srinivas Stern-C Unavailable [phone] Bandar Casas [facility] Unavailable [phone] Bandar Casas [facility] Unavailable [phone] Ayana Zhang-C Unavailable Reason for Visit * Reason Onset Date Comments Outreach 01/10/2025 Encounter Details Date Type Department Care Team (Late st Contact Info) Description 01/10/2025 Telephone [facility] [address] 4th [place] [address] None Outreach Social History Tobacco Use Types Packs/Day Years [...] on file 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 Arrival time provided: 1:15 PM documented in this encounter Plan of Treatment Upcoming Encounters Date Type Department Care Team (Latest Contact Info) Description 02/13/2025 3:20 PM CDT Appointment [facility] Imaging [address] [facility] [address] [place] [phone] Kayode Ivey MD 6 [place], [place] [address]405 03/07/2025 3:00 PM CDT Ancillary Procedure [facility] [address] [facility] [address] [place] [address] Srinivas Stern PA-C [address] [place] [address] 528815 04/24/2025 2:40 PM CDT Virtual Visit [facility] [address]th [place] [phone] Alexis Torres MD 420 [place], [place] 7[address]225 Srinivas Stern PA-C [address] [place] [address] 06/05/2025 3:30 PM CDT Virtual Visit [facility] [address] 2nd [place] [phone] Kayode Ivey MD 516 [place], [place] [address]105 Bandar Casas, [facility] 420 [facility] 812 [place] [address] documented as of this encounter Visit Diagnoses Not on filedocumented in this encounter Additional Health Concerns Infection Onset Date Last Indicated Resolved Time MRSA-Contact Isolation Comment: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, chest, and elbow 02/17/2016 02/17/2016 Assessment Noted Time PHQ-9 Depression Total Score: 9 03/02/20 16 7:16 AM CDT documented as of this encounter Care Teams Industrial Engineering Intern Relationship Specialty Start Date End Date Jairo Vasquez MD PCP - General Family Medicine - Sports Medicine 12/29/15 Kylee Dailey MD [address] [place] [address] 2A [place] [address] Internal Medicine 04/01/17 Kayode Ivey MD [address] [place] [address] Gastroenterology 04/01/17 Nicolasa Perez APRN PROMOTION MANAGER [address] [place] [address]CJ [place], [place] [address] Nurse Practitioner Nurse Practitioner 04/28/17 Srinivas Stern PA-C [address] [place] [address] 831985 Physician Bit Sander Physician Bit Sander 10/02/18 Srinivas Stern PA-C 909 [place] [address] Assigned Gastroenterology Provider 07/17/22 Bandar Casas RPH 420 [facility] 812 [place], [place] 1684[address] Pharmacist Pharmacist 08/18/23 Bandar Casas RPH 420 [place] 314952 [place], [place] 003875 Assigned MTM Pharmacist 08/27/23 Ayana Zhang PA-C 5200 [place] [address] Physician Bit Sander Rheumatology 04/16/24 documented as of this encounter
--- OUTSIDE RECORDS SUMMARY | 2025-01-15 15:48 | XMS_ITS | Encounter Summary ---
Author Organization [place] Address [address] [place] [address]. [place] [address] Care Team Providers Care Electrophysiology Technologist Name Role Phone Jairo Vasquez MD Primary Care Provider Kylee Dailey MD Unavailable + Derik Ivey MD Unavailable Nicolasa Perez APRN STAFF NURSE ICU RESOURCE TEAM Unavaila ble Srinivas Stern-C Unavailable [phone] Srinivas Stern-C Unavailable Bandar Casas [facility] Unavailable Bandar Casas [facility] Unavailable [phone] Ayana Zhang-C Unavailable Reason for Visit * Reason Onset Date Comments Procedure 12/28/2024 Colonoscopy Encounter Details Date Type Department Care Team (Late st Contact Info) Description 12/28/2024 Telephone [facility] [address] 4th [place] [address] None Procedure (Colonoscopy) Social History Tobacco Use Types Packs/Day Years [...] on file 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 No What is your communication preference for Instructions and/or Bowel Prep? MyChart What insurance is in the chart? Other: BCBS Ordering/Referring Provider: DERIK IVEY (If ordering provider performs procedure, schedule with ordering provider unless otherwise instructed. ) BMI: Estimated body mass index is 31.65 kg/m?? as calculated from the following: Height as of 12/05/24: 1.93 m (6' 4). Weight as of 12/05/24: 117.9 kg (260 lb). Sedation Ordered moderate sedation. If patient BMI > 50 do not schedule in [facility]. If patient BMI > 45 do not schedule at [facility]. Are you taking methadone or Suboxone? NO, No director of market research required. Have you been diagnosed and are being treated for severe PTSD or severe anxiety? NO, No director of market research required. Are you taking any prescription medications for pain 3 or more times per week? NO, No director of market research required. Do you have a history of malignant hyperthermia? No (Females) Are you currently ? No Have you been diagnosed or told you have pulmonary hypertension? No Do you have an LVAD? No Have you been told you have moderate to severe sleep apnea? No. Have you been told you have COPD, asthma, or any other lung disease? No Has your doctor ordered any cardiac tests like echo, angiogram, stress test, ablation, or EKG, thatyou have not completed yet? No Do you have a history of any heart conditions? No Have you ever had or are you waiting for an organ transplant? No. Continue scheduling, no site restrictions. Have you had a stroke or transient ischemic attack (TIA aka mini stroke) in the last 2 years? No. Have you been diagnosed with or been told you have cirrhosis of the liver? No. Are you currently on dialysis? No Do you need assistance transferring? No BMI: Estimated body mass index is 31.65 kg/m?? as calculated from the following: Height as of 12/05/24: 1.93 m (6' 4). Weight as of 12/05/24: 117.9 kg (260 lb). Is patients BMI > 40 and scheduling location UP? No Do you take an injectable or oral medication for weight loss or diabetes (excluding insulin)? No Do you take the medication Naltrexone? No Do you take blood thinners? No Prep Are you currently on dialysis or do you have chronic kidney disease? No Do you have a diagnosis of diabetes? Yes (Golytely Prep) Do you have a diagnosis of cystic fibrosis (CF)? No On a regular basis do you go 3 -5 days between bowel movements? No BMI > 40? No Preferred Pharmacy: [facility] [id number] [place] [address] [address] Final Scheduling Details Procedure scheduled Colonoscopy Surgeon: NATHAN Date of procedure: 01/14/25 Pre-OP / PAC: No - Not required for this site. Location MG - [facility] - Patient preference. Sedation Moderate Sedation - Per order. Patient Reminders: You will receive a call from a Nurse to review instructions and health history. This assessment must be completed prior to your procedure. Failure to complete the Nurse assessment may result in the procedure being cancelled. On the day of your procedure, please designate an adult(s) who can drive you home stay with you forthe next 24 hours. The medicines used in the exam will make you sleepy. You will not be able to drive. You cannot take public transportation, ride share services, or non-medical taxi service without a responsible caregiver. Medical transport services are allowed with the requirement that a responsiblecaregiver will receive you at your destination. We require that drivers and caregivers are confirmed prior to your procedure. documented in this encounter Plan of Treatment Upcoming Encounters Date Type Department Care Team (Latest Contact Info) Description 02/13/2025 3:20 PM CDT Appointment [facility] [address] [facility] [address] [place] [phone] Derik Ivey MD 6 [place], [place] [address] 03/07/2025 3:00 PM CDT Ancillary Procedure [facility] [address] [facility] [address] [place] [address] Srinivas Stern PA-C [address] [place] [address] 04/24/2025 2:40 PM CDT Virtual Visit [facility] [address] [place] [address] Alexis Torres MD 420 [place], [place] 9[address]25 Srinivas Stern PA-C [address] [place] [address] 06/05/2025 3:30 PM CDT Virtual Visit [facility] [address] [place] [address] Derik Ivey MD [address] [place] [address] Bandar Casas RPH 420 [facility] 812 [place] [address] documented as of this encounter Visit Diagnoses Not on filedocumented in this encounter Additional Health Concerns Infection Onset Date Last Indicated Resolved Time MRSA-Contact Isolation Comment: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, chest, and elbow 02/17/2016 02/17/2016 Assessment Noted Time PHQ-9 Depression Total Score: 9 03/02/20 16 7:16 AM CDT documented as of this encounter Care Teams Electrophysiology Technologist Relationship Specialty Start Date End Date Jairo Vasquez MD PCP - General Family Medicine - Sports Medicine 12/29/15 Kylee Dailey MD 6 [facility] 2A [place], [place] [address] Internal Medicine 04/01/17 Derik Ivey MD [address] [place] [address] 625425 Gastroenterology 04/01/17 Nicolasa Perez APRN STAFF NURSE ICU RESOURCE TEAM [address] [place], [place] [address]CJ [place], [place] [address] Nurse Practitioner Nurse Practitioner 04/28/17 Srinivas Stern PA-C [address] [place] [address] 393245 Physician Mammalogist Physician Mammalogist 10/02/18 Srinivas Stern PA-C [address] [place] [address] [phone] Assigned Gastroenterology Provider 07/17/22 Bandar Casas [facility] [address] [phone] Pharmacist Pharmacist 08/18/23 Bandar Casas RP [address] 548395 Assigned MTM Pharmacist 08/27/23 Ayana Zhang PA-C 5200 [place] [address] Physician Mammalogist Rheumatology 04/16/24 documented as of this encounter
--- OUTSIDE RECORDS SUMMARY | 2025-01-15 15:48 | XMS_ITS | Encounter Summary ---
Author Organization [facility] Address [address] [place] [address] Care Team Providers Care Private Branch Exchange Installer Name Role Phone Jairo Vasquez MD Primary Care Provider [phone] Kylee Dailey MD Unavailable + Kayode Ivey MD Unavailable [phone] Nicolasa Perez APRN DEVELOPMENT MGR Unavaila ble Srinivas SternC Unavailable [phone] PitSrinivas mcintosh PA-C Unavailable [phone] Sue Mckeon [facility] Unavailable [phone] Karen Trinh MD Unavailable [phone] Violet Ta [facility] Unavailable [phone] Violet Ta [facility] Unavailable [phone] PitSrinivas mcintosh PA-C Unavailable [phone] Bandar Casas [facility] Unavailable Bandar Casas [facility] Unavailable [phone] Ayana Zhang PA-C Unavailable PitSrinivas mcintosh PA-C Unavailable [phone] Encounter Details Date Type Department Care Team (Late st Contact Info) Description 03/11/2021 [facility] [address] [place] [phone] Blanca Menezes, RN Social History Tobacco Use Types Packs/Day Years Used Date Smoking Tobacco: Never Smokeless Tobacco: Never Alcohol Use Standard Drinks/Week Comments Yes 13 (1 standard drink = 0.6 oz pu re alcohol) MONTHLY PHQ-2 Answer Date Recorded PHQ-2 Score 1 01/28/2021 Sex and Gender Information Value Date Recorded Sex Assigned at Not on file 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 Ivey documented in this encounter Plan of Treatment Upcoming Encounters Date Type Department Care Team (Latest Contact Info) Description 02/13/2025 3:20 PM CDT Appointment [facility] Imaging [address] [facility] [address] [place] [phone] Kayode Ivey MD [address] [place], [place] 28[address] 03/07/2025 3:00 PM CDT Ancillary Procedure [facility] [address] [facility] [address] [place] [address] Srinivas tSern PA-C [address] [place] [address] 04/24/2025 2:40 PM CDT Virtual Visit [facility] Gastroenterology [address] [place] [phone] Alexis Torres MD [address] [place], [place] 857925 Srinivas Stern PA-C [address] [place], [place] 560415 06/05/2025 3:30 PM CDT Virtual Visit [facility] 9[address] [facility] 2nd [place] [address] Kayode Ivey MD [address] [place], [place] 8[address]165 Bandar Casas, [facility] 420 [facility] 812 [place], [place] 60[address] documented as of this encounter Visit Diagnoses Not on filedocumented in this encounter Additional Health Concerns Infection Onset Date Last Indicated Resolved Time MRSA-Contact Isolation Comment: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, chest, and elbow 02/17/2016 02/17/2016 Rule Out C-difficile 10/04/2023 10/05/2023 024 7:28 PM POLISHING PAD MOUNTER C-difficile 10/05/2023 10/05/2023 11/04/2023 11:3 9 PM POLISHING PAD MOUNTER Rule Out C-difficile 09/03/2024 09/04/2024 025 12:45 PM POLISHING PAD MOUNTER Assessment Noted Time PHQ-9 Depression Total Score: 9 03/02/20 16 7:16 AM CDT documented as of this encounter Care Teams Private Branch Exchange Installer Relationship Specialty Start Date End Date Jairo Vasquez MD PCP - General Family Medicine - Sports Medicine 12/29/15 Kylee Dailey MD [address] [place] [address] [address] [place], [place] [address] Internal Medicine 04/01/17 Kayode Ivey MD [address] [place] [address] Gastroenterology 04/01/17 Nicolasa Perez APRN DEVELOPMENT MGR [address] [place] [address] [id number] [place] [address] Nurse Practitioner Nurse Practitioner 04/28/17 Srinivas Stern PA-C [address] [place] [address] 146615 Physician Car Clerk Pullman Physician Car Clerk Pullman 10/02/18 Srinivas Stern PA-C [address] [place] [address] [id number] Assigned Heart and Vascular Provider 11/19/20 06/27/21 Sue Mckeon [facility] [address] [place] [address] Pharmacist Pharmacist Communications Billing Analyst 02/09/21 06/29/22 Karen Trinh MD [address] [place] [address] [id number] Assigned Infectious Disease Provider 02/08/21 07/30/22 [facility] [address] [place] [address] Assigned MTM Pharmacist 02/27/22 05/21/22 Violet Ta, [facility] [address] [place] [address] Assigned MTM Pharmacist 06/02/22 07/09/22 Srinivas Stern PA-C [address] [place], [place] 349675 Assigned Gastroenterology Provider 07/17/22 Bandar Casas RPH [address] [address] Pharmacist Pharmacist 08/18/23 Bandar Casas RP [address] [address] Assigned MTM Pharmacist 08/27/23 Ayana Zhang PA-C [address] [place] [address] [id number] Physician Car Clerk Pullman Rheumatology 04/16/24 Srinivas Stern PA-C [address] [place] [address] [phone] Home Infusion Following Provider Gastroenterology 07/11/24 10/05/24 documented as of this encounter
--- OUTSIDE RECORDS SUMMARY | 2025-01-15 15:48 | XMS_ITS | Encounter Summary ---
Author Organization [place] Address [address] [place] [address] Care Team Providers Care Biotechnician Name Role Phone Jairo Vasquez MD Primary Care Provider [phone] Kylee Dailey MD Unavailable + Kayode Ivey MD Unavailable [phone] Nicolasa Perez APRN SHIP STEWARD Unavaila ble Srinivas Stern PA-C Unavailable [phone] Srinivas Stern-C Unavailable [phone] Bandar Casas [facility] Unavailable Bandar Casas [facility] Unavailable [phone] Ayana Zhang PA-C Unavailable [phone] Encounter Details Date Type Department Care Team (Late st Contact Info) Description 12/28/2024 [facility] Gastroenterology Clinic [place] [address] [facility] 4th [place] [address] Jeri Shaffer Social History Tobacco Use Types Packs/Day Years [...] on file Legal Sex 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 WHARF HAND Gender Identity Not on file Sexual Orientation Not on file 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 Plan of Treatment Upcoming Encounters Date Type Department Care Team (Latest Contact Info) Description 02/13/2025 3:20 PM CDT Appointment [facility] Imaging [address] [facility] [address] [place] [phone] Kayode Ivey MD [address] [place] [address] 666855 03/07/2025 3:00 PM CDT Ancillary Procedure [address] [place] [address] Srinivas Stern PA-C [address] [place] [address] 196035 04/24/2025 2:40 PM CDT Virtual Visit [facility] G[facility]ology Clinic [address] 4th [place] [phone] Alexis Torres MD 420 [place], [place] [phone] Srinivas Stern PA-C [address] [place] [address] 143025 06/05/2025 3:30 PM CDT Virtual Visit [facility] GI [facility] [address] [place] [address] 2nd [place] [phone] Kayode Ivey MD [address] [place] [address] 855505 Bandar Casas RPH 420 [facility] 812 [place], [place] 7084[address] documented as of this encounter Visit Diagnoses Not on filedocumented in this encounter Additional Health Concerns Infection Onset Date Last Indicated Resolved Time MRSA-Contact Isolation Comment: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, chest, and elbow 02/17/2016 02/17/2016 Assessment Noted Time PHQ-9 Depression Total Score: 9 03/02/20 16 7:16 AM CDT documented as of this encounter Care Teams Biotechnician Relationship Specialty Start Date End Date Jairo Vasquez MD PCP - General Family Medicine - Sports Medicine 12/29/15 Kylee Dailey MD [address] [place] [address] [address]A [place], [place] 390185 Internal Medicine 04/01/17 Kayode Ivey MD [address] [place] [address] 454805 Gastroenterology 04/01/17 Nicolasa Perez APRN SHIP STEWARD [address] [place], [place] [id number] [place], [place] [address] Nurse Practitioner Nurse Practitioner 04/28/17 Srinivas Stern PA-C [address] [place] [address] Physician Skidway Worker Physician Skidway Worker 10/02/18 Srinivas Stern PA-C [address] [place] [address] Assigned Gastroenterology Provider 07/17/22 Bandar Casas RPH [address] [place] [address] 812 [place], [place] [phone] Pharmacist Pharmacist 08/18/23 Bandar Casas RPH [address] [place] [address] 812 [place] [address] Assigned MTM Pharmacist 08/27/23 Ayana Zhang PA-C [address] [place] [address] Physician Skidway Worker Rheumatology 04/16/24 documented as of this encounter
--- OUTSIDE RECORDS SUMMARY | 2025-01-15 15:48 | XMS_ITS | Encounter Summary ---
Author Organization [facility] Address [address] [place] [address]. [place] [address] Care Team Providers Care Laundry Machine Operator Name Role Phone Jairo Vasquez MD Primary Care Provider Kylee Dailey MD Unavailable + Kayode Ivey MD Unavailable [phone] Nicolasa Perez APRN SEARCH MARKETING SPECIALIST Unavaila ble Srinivas Stern-C Unavailable [phone] Srinivas Stern-C Unavailable [phone] Bandar Casas [facility] Unavailable Bandar Casas [facility] Unavailable [phone] Ayana Zhang-C Unavailable Encounter Details Date Type Department Care Team (Late st Contact Info) Description 12/22/2024 Orders Only [facility] [address] [facility] 2nd [place] [address] Malgorzata Acosta Ulcerative colitis with rectal bleeding, unspecified location (H) Social History Tobacco Use Types Packs/Day Years Used Date Smoking Tobacco: Never Smokeless Tobacco: Never Alcohol Use Standard Drinks/Week Comments Yes 13 (1 standard drink = 0.6 oz pu re alcohol) MONTHLY PHQ-2 Answer Date Recorded PHQ-2 Score 1 10/24/2024 Adolescent Education Answer Date Record ed Getting School Help Needed Not on file 09/23 /2023 Sex and Gender Information Value Date Recorded Sex Assigned at Not on file 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 Gender Identity Not on file Sexual Orientation Not on file 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 Plan of Treatment Upcoming Encounters Date Type Department Care Team (Latest Contact Info) Description 02/13/2025 3:20 PM CDT Appointment [facility] Imaging [address] [facility] [address] [place] [phone] Kayode Ivey MD [address] [place] [address] 567665 03/07/2025 3:00 PM CDT Ancillary Procedure [address] [place] [address] Srinivas Stern PA-C [address] [place] [address] [phone] 04/24/2025 2:40 PM CDT Virtual Visit [facility] Gastroenterology Clinic [address]th [place] [address] Alexis Torres MD 420 [place], [place] 92[address]35 Srinivas Stern PA-C [address] [place] [address] [phone] 06/05/2025 3:30 PM CDT Virtual Visit [facility] GI [facility] [address] [place] [address] 2nd [place] [address] Kayode Ivey MD [address] [place] [address] 877985 Bandar Casas RPH 420 [facility] 812 [place], [place] 2[address]65 documented as of this encounter Procedures Procedure Name Priority Date/Time Associated Diagnosis Comments CALPROTECTIN FECES Routine 12/21/2024 5: 00 PM CDT Ulcerative colitis with rectal bleeding, unspecified location (H) documented in this encounter Results * (ABNORMAL) Calprotectin Feces (12/21/2024 5:00 PM CDT) Calprotectin Feces 65.4(H) 0.0 - 49.9 mg/kg 12/24/2024 12:06 PM CDT [facility] C[facility]/PROT/END O Comment:Borderline result, p lease re-evaluate and recollect a new sample in 4-6 weeks. Stool RECTAL CONTENTS / Unknown Non-blood Collection / Unknown 12/21/2024 5:00 PM CDT 12/22/2024 9:21 AM CDT us Kayodemarquise Ivey MD LAB - STOOLS ORDERABLES F inal Result [facility] CORE/PROT/ENDO [facility] Core/Prot/Endo [address] [facility] [address] [facility], Room 3-[address] documented in this encounter Visit Diagnoses Diagnosis Ulcerative colitis with rectal bleeding, unspecified location (H) documented in this encounter Additional Health Concerns Infection Onset Date Last Indicated Resolved Time MRSA-Contact Isolation Comment: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, chest, and elbow 02/17/2016 02/17/2016 Assessment Noted Time PHQ-9 Depression Total Score: 9 03/02/20 16 7:16 AM CDT documented as of this encounter Care Teams Laundry Machine Operator Relationship Specialty Start Date End Date Jairo Vasquez MD PCP - General Family Medicine - Sports Medicine 12/29/15 Kylee Dailey MD 516 [facility] 2A [place] [address] Internal Medicine 04/01/17 Kayode Ivey MD 6 [place], [place] 940865 Gastroenterology 04/01/17 Nicolasa Perez APRN SEARCH MARKETING SPECIALIST [address] [place] [address] [id number] [place], [place] 473075 Nurse Practitioner Nurse Practitioner 04/28/17 Srinivas Stern PA-C [address] [place] [address] [phone] Physician Supervisor Cigar Making Machine Physician Supervisor Cigar Making Machine 10/02/18 Srinivas Stern PA-C [address] [place] [address] [phone] Assigned Gastroenterology Provider 07/17/22 Bandar Casas RPH [address] [place] 548152 [place] [address] Pharmacist Pharmacist 08/18/23 Bandar Casas RPH [address] [address] Assigned MTM Pharmacist 08/27/23 Ayana Zhang PA-C 5200 [place] [address] Physician Supervisor Cigar Making Machine Rheumatology 04/16/24 documented as of this encounter
--- OUTSIDE RECORDS SUMMARY | 2025-01-15 15:48 | XMS_ITS | Encounter Summary ---
Author Organization [facility] Address [address] [place] [address] Care Team Providers Care Furniture Builder Name Role Phone Jairo Vasquez MD Primary Care Provider [phone] Kylee Dailey MD Unavailable + Kayode Ivey MD Unavailable [phone] Nicolasa Perez APRN [facility] Unavaila ble Srinivas Stern-C Unavailable [phone] Srinivas Stern-C Unavailable [phone] Bandar Casas [facility] Unavailable Bandar Casas [facility] Unavailable Aynaa Zhang-C Unavailable Reason for Referral * Consultation (Priority: 1-2 Weeks) - Pending Review Specialty Diagnoses / Procedures Referred By Pérez t Referred To Contact Gastroenterology Diagnoses Ulcerative pancolitis without complication (H) Kayode Ivey MD [address] [place] [address] Phone: tel: fax: Referral ID Status Reason Start Date Expiration Date V isits Requested Visits Authorized [id number] Pending Review 12/26/2024 12/26/2025 1 1 Question Answer Service: Lower Endoscopy Lower Endoscopy Type: Colonoscopy Reason for Colonoscopy: Diagnostic Sedation Concerns: No medical conditions affecting sedation Sedation Type: Moderate/Conscious Sedation Preferred Location: [facility] Patient Scheduling Instructions: [facility] will call you to coordinate your care as prescribed by the provider. If you don t hear from a textiles sales representative within 2 business days, please call . Additional Information: Please schedule with IBD provider - for disease reassessment Comments Please be aware that coverage of these services is subject to the terms and limitations of your health insurance plan. Call member services at your health plan with any benefit or coverage questions. [facility] will call you to coordinate your care as prescribed by the provider. If you don t hear from a textiles sales representative within 2 business days, please call . 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 Ivey patient to discontinue Entocort. Order placed for budesonide rectal foam. Order placed for colonoscopy. documented in this encounter Plan of Treatment Upcoming Encounters Date Type Department Care Team (Latest Contact Info) Description 02/13/2025 3:20 PM CDT Appointment [facility] Imaging [address] [facility] [address] [place] [address] Kayode Ivey MD [address] [place] [address] [id number] 03/07/2025 3:00 PM CDT Ancillary Procedure [address] [place] [address] Srinivas Stern PA-C [address] [place] [address] [id number] 04/24/2025 2:40 PM CDT Virtual Visit [facility] Gastroenterology Clinic [address] [place] [phone] Alexis Torres MD 420 [place], [place] 502275 Srinivas Stern PA-C [address] [place] [address] 935705 06/05/2025 3:30 PM CDT Virtual Visit [facility] GI [facility] 909 [facility] 2nd [place] [phone] Kayode Ivey MD [address] [place] [address] [id number] Bandar Caass [place] 420 [facility] 812 [place], [place] 88[address]95 Scheduled Referrals Name Type Priority Associated Diagnoses Orde r Schedule Adult GI Activity Aid Referral - Procedure Only Referral Priority: 1-2 Weeks Ulcerative pancolitis without complication (H) Expected: 12/26/2024 (Approximate), Expires: 12/26/2025 documented as of this encounter Visit Diagnoses Diagnosis Ulcerative pancolitis without complication (H)- Primary documented in this encounter Additional Health Concerns Infection Onset Date Last Indicated Resolved Time MRSA-Contact Isolation Comment: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, chest, and elbow 02/17/2016 02/17/2016 Assessment Noted Time PHQ-9 Depression Total Score: 9 03/02/20 16 7:16 AM CDT documented as of this encounter Care Teams Furniture Builder Relationship Specialty Start Date End Date Jairo Vasquez MD PCP - General Family Medicine - Sports Medicine 12/29/15 Kylee Dailey MD [address] [place] [address] 2[address] [place], [place] 138535 Internal Medicine 04/01/17 Kayode Ivey MD [address] [place] [address] [id number] Gastroenterology 04/01/17 Nicolasa Perez APRN BAKERY TEAM MEMBER [address] [place] [address] [id number] [place], [place] 015645 Nurse Practitioner Nurse Practitioner 04/28/17 Srinivas Stern PA-C [address] [place] [address] [id number] Physician Cumulative Effects Analyst Physician Cumulative Effects Analyst 10/02/18 Srinivas Stern PA-C [address] [place] [address] Assigned Gastroenterology Provider 07/17/22 Bandar Casas RPH [address] [place] 188342 [place], [place] 796735 Pharmacist Pharmacist 08/18/23 Bandar Caass RPH [address] 800905 Assigned MTM Pharmacist 08/27/23 Ayana Zhang PA-C 5200 [place] [address] Physician Cumulative Effects Analyst Rheumatology 04/16/24 documented as of this encounter
--- OUTSIDE RECORDS SUMMARY | 2025-01-15 15:48 | XMS_ITS | Encounter Summary ---
Author Organization [place] Address [address] [place] [address] Care Team Providers Care Office Director Name Role Phone Jairo Vasquez MD Primary Care Provider [phone] Kylee Dailey MD Unavailable + Kayode Ivey MD Unavailable [phone] Nicolasa Perez APRN WELL SERVICING RIG OPERATOR Unavaila ble Srinivas Stern-C Unavailable [phone] Srinivas Stern-C Unavailable [phone] Bandar Casas [facility] Unavailable [phone] Bandar Casas [facility] Unavailable [phone] Ayana Zhang-C Unavailable Encounter Details Date Type Department Care Team (Late st Contact Info) Description 12/15/2024 11:10 AM CDT Lab [facility] [address] [place] [address] Ulcerative pancolitis without complication (H); Ulcerative colitis with rectal bleeding, unspecified location [...] on file 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 [address] [place] [phone] Kayode Ivey MD [address] [place] [address] 03/07/2025 3:00 PM CDT Ancillary Procedure [address] [place] [address] Srinivas Stern PA-C [address] [place] [address] [phone] 04/24/2025 2:40 PM CDT Virtual Visit [facility] [address] 4th [place] [address] Alexis Torres MD 420 [place], [place] 800[address] Srinivas Stern PA-C [address] [place] [address] 033805 06/05/2025 3:30 PM CDT Virtual Visit [facility] GI [address] 2nd [place] [address] Kayode Ivey MD [address] [place] [address] [phone] Bandar Casas RPH 420 [facility] 812 [place] [address] documented as of this encounter Procedures Procedure Name Priority Date/Time Associated Diagnosis Comments VEDOLIZUMAB LEVEL AND ANTIBODIES Routine 12/15/2024 11:17 AM CDT Ulcerative colitis with rectal bleeding, unspecified location (H) CBC WITH PLATELETS AND DIFFERENTIAL Routine 12/15/2024 11:17 AM CDT Ulcerative pancolitis without complication (H) CBC WITH PLATELETS & DIFFERENTIAL Routine 12/15/2024 11:17 AM CDT Ulcerative pancolitis without complication (H) HEPATIC FUNCTION PANEL Routine 12/15/2024 11:17 AM CDT Ulcerative pancolitis without complication (H) CRP INFLAMMATION Routine 12/15/2024 11:1 7 AM CDT Ulcerative pancolitis without complication (H) documented in this encounter Results * CBC with platelets and differential (12/15/2024 11:17 AM CDT) WBC Count 6.4 4.0 - 11.0 10e3/uL 12/15/2024 11:22 AM CDT [facility] RBC Count 5.08 4.40 - 5.90 10e6/uL 12/15/2024 11:22 AM CDT [facility] Hemoglobin 15.3 13.3 - 17.7 g/dL 12/15/2024 11:22 AM CDT [facility] Hematocrit 43.3 40.0 - 53.0 % 12/15/2024 11:22 AM CDT [facility] MCV 85 78 - 100 fL 12/15/2024 11:22 AM CDT [facility] MCH 30.1 26.5 - 33.0 pg 12/15/2024 11:22 AM CDT [facility] MCHC 35.3 31.5 - 36.5 g/dL 12/15/2024 11:22 AM CDT [facility] RDW 13.0 10.0 - 15.0 % 12/15/2024 11:22 AM CDT [facility] Platelet Count 190 150 - 450 10e3/uL 12/15/2024 11:22 AM CDT [facility] % Neutrophils 56 % 12/15/2024 11:22 AM CDT [facility] % Lymphocytes 33 % 12/15/2024 11:22 AM CDT [facility] % Monocytes 7 % 12/15/2024 11:22 AM CDT [facility] % Eosinophils 2 % 12/15/2024 11:22 AM CDT [facility] % Basophils 1 % 12/15/2024 11:22 AM CDT [facility] % Immature Granulocytes 0 % 12/15/2024 11:22 AM CDT [facility] NRBCs per 100 WBC 0 <1 /100 025 11:22 AM CDT [facility] Absolute Neutrophils 3.6 1.6 - 8.3 10e3/uL 12/15/2024 11:22 AM CDT [facility] Absolute Lymphocytes 2.1 0.8 - 5.3 10e3/uL 12/15/2024 11:22 AM CDT [facility] Absolute Monocytes 0.5 0.0 - 1.3 10e3/uL 12/15/2024 11:22 AM CDT [facility] Absolute Eosinophils 0.1 0.0 - 0.7 10e3/uL 12/15/2024 11:22 AM CDT [facility] Absolute Basophils 0.1 0.0 - 0.2 10e3/uL 12/15/2024 11:22 AM CDT [facility] Absolute Immature Granulocytes 0.0 <=0.4 10e3/uL 12/15/2024 11:22 AM CDT [facility] Absolute NRBCs 0.0 10e3/uL 12/15/2024 11:22 AM CDT [facility] Blood STRUCTURE OF LEFT HAND / Unknown Venipuncture / Unknown 12/15/2024 11:17 AM CDT 12/15/2024 11:18 AM CDT us Srinivas Stern PA-C LAB - BLOOD ORDERABLES Chika arias Result [facility] Lab [address] Lab (1st floor, no room number) [place] [address], [facility] * Vedolizumab Level and Antibodies (12/15/2024 11:17 AM CDT) Vedolizumab Concentration 15.1 ug/mL 12/20/2024 6:04 AM CDT [facility] Vedolizumab Antibodies <1.6 U/mL 12/20/2024 6:04 AM CDT [facility] Blood STRUCTURE OF LEFT HAND / Unknown Venipuncture / Unknown 12/15/2024 11:17 AM CDT 12/15/2024 11:19 AM CDT Narrative [facility] - 12/20/2024 6:04 AM CDT Verified by Carlos Kaminski on 12/20/2024. us Kayodemarquise Ivey MD LAB - BLOOD ORDERABLES Ed ited Result - Final [facility] [address] [place], [place] [id number] [place] [address] * (ABNORMAL) Hepatic function panel (12/15/2024 11:17 AM CDT) Protein Total 6.7 6.4 - 8.3 g/dL 12/15/2024 11:39 AM CDT [facility] Albumin 4.6 3.5 - 5.2 g/dL 12/15/2024 11:39 AM CDT [facility] Bilirubin Total 1.4(H) <=1.2 mg/dL 12/15/2024 11:39 AM CDT [facility] Alkaline Phosphatase 72 40 - 150 U/L 12/15/2024 11:39 AM CDT [facility] AST 39 0 - 45 U/L 12/15/2024 11:39 AM CDT [facility] ALT 55 0 - 70 U/L 12/15/2024 11:39 AM CDT [facility] Bilirubin Direct 0.41(H) 0.00 - 0.30 mg/dL 12/15/2024 11:39 AM CDT [facility] Blood STRUCTURE OF LEFT HAND / Unknown Venipuncture / Unknown 12/15/2024 11:17 AM CDT 12/15/2024 11:19 AM CDT Srinivas JAY-Vikash LAB - BLOOD ORDERABLES Chika l Result [facility] Lab [address] Lab (1st floor, no room number) [place] [address] * CRP inflammation (12/15/2024 11:17 AM CDT) CRP Inflammation <3.00 <5.00 mg/L 12/16/19 11:39 AM CDT LABORATORY Blood STRUCTURE OF LEFT HAND / Unknown Venipuncture / Unknown 12/15/2024 11:17 AM CDT 12/15/2024 11:19 AM CDT Srinivasgeovanni JAY-Vikash LAB - BLOOD ORDERABLES Chika l Result [facility] Lab [address] Lab (1st floor, no room number) [place] [address] documented in this encounter Visit Diagnoses Diagnosis Ulcerative pancolitis without complication (H) Ulcerative colitis with rectal bleeding, unspecified location (H) documented in this encounter Additional Health Concerns Infection Onset Date Last Indicated Resolved Time MRSA-Contact Isolation Comment: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, chest, and elbow 02/17/2016 02/17/2016 Assessment Noted Time PHQ-9 Depression Total Score: 9 03/02/20 16 7:16 AM CDT documented as of this encounter Care Teams Office Director Relationship Specialty Start Date End Date Jairo Vasquez MD PCP - General Family Medicine - Sports Medicine 12/29/15 Kylee Dailey MD [address] [address] Internal Medicine 04/01/17 Kayode Ivey MD [address] [place] [address] Gastroenterology 04/01/17 Nicolasa Perez APRN WELL SERVICING RIG OPERATOR [address] [place] [address] [id number] [address] Nurse Practitioner Nurse Practitioner 04/28/17 Srinivas Stern PA-C [address] [place] [address] [phone] Physician Casting And Locker Room Servicer Physician Casting And Locker Room Servicer 10/02/18 Srinivas Stern PA-C 909 [place], [place] 472875 Assigned Gastroenterology Provider 07/17/22 Bandar Casas RPH 420 [facility] 812 [place], [place] [phone] Pharmacist Pharmacist 08/18/23 Bandar Casas RPH 420 [facility] 812 [place], [place] 353805 Assigned MTM Pharmacist 08/27/23 Ayana Zhang PA-C 5[address] [place] [address] Physician Casting And Locker Room Servicer Rheumatology 04/16/24 documented as of this encounter
--- OUTSIDE RECORDS SUMMARY | 2025-01-15 15:48 | XMS_ITS | Encounter Summary ---
Author Organization [place] Address [address] [place] [address] Care Team Providers Care Treatment Plant Mechanic Name Role Phone Jairo Vasquez MD Primary Care Provider [phone] Kylee Dailey MD Unavailable + Kayode Ivey MD Unavailable [phone] Nicolasa Perez APRN SHERIFF Unavaila ble Srinivas SternC Unavailable [phone] PitSrinivas mcintosh PA-C Unavailable [phone] Sue Mckeon [facility] Unavailable [phone] Karen Trinh MD Unavailable [phone] Violet Ta [facility] Unavailable Violet Ta [facility] Unavailable [phone] PitSrinivas mcintosh PA-C Unavailable [phone] Bandar Casas [facility] Unavailable Bandar Casas [facility] Unavailable Ayana Zhang PA-C Unavailable PitSrinivas mcintosh PA-C Unavailable [phone] Encounter Details Date Type Department Care Team (Late st Contact Info) Description 04/03/2021 [facility] [address] [phone] Kayode Ivey MD [address] [place] [address]85 Social History Tobacco Use Types Packs/Day Years Used Date Smoking Tobacco: Never Smokeless Tobacco: Never Alcohol Use Standard Drinks/Week Comments Yes 13 (1 standard drink = 0.6 oz pu re alcohol) MONTHLY PHQ-2 Answer Date Recorded PHQ-2 Score 1 01/28/2021 Sex and Gender Information Value Date Recorded Sex Assigned at Not on file 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 No / Unsure 04/01/2021 10:42 AM CDT documented as of this encounter Plan of Treatment Upcoming Encounters Date Type Department Care Team (Latest Contact Info) Description 02/13/2025 3:[address] [facility] Imaging [address] [facility] [address] [place] [phone] Kayode Ivey MD [address] [place] [address] 046335 03/07/2025 3:00 PM CDT Ancillary Procedure [facility] [address] [facility] [address] [place] [address] Srinivas Stern PA-C [address] [place] [address] 489365 04/24/2025 2:40 PM CDT Virtual Visit [facility] [address] [phone] Alexis Torres MD 420 [place], [place] 779795 Srinivas Stern PA-C 909 [place], [place] 902105 06/05/2025 3:30 PM CDT Virtual Visit [facility] 909 [facility] 2nd [place] [address] Kayode Ivey MD 516 [place], [place] 332905 Bandar Casas, [facility] 420 [facility] 812 [place], [place] 380[address] documented as of this encounter Visit Diagnoses Not on filedocumented in this encounter Additional Health Concerns Infection Onset Date Last Indicated Resolved Time MRSA-Contact Isolation Comment: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, chest, and elbow 02/17/2016 02/17/2016 Rule Out C-difficile 10/04/2023 10/05/2023 024 7:28 PM WOUND CARE PHYSICIAN C-difficile 10/05/2023 10/05/2023 11/04/2023 11:3 9 PM WOUND CARE PHYSICIAN Rule Out C-difficile 09/03/2024 09/04/2024 025 12:45 PM WOUND CARE PHYSICIAN Assessment Noted Time PHQ-9 Depression Total Score: 9 03/02/20 16 7:16 AM CDT documented as of this encounter Care Teams Treatment Plant Mechanic Relationship Specialty Start Date End Date Jairo Vasquez MD PCP - General Family Medicine - Sports Medicine 12/29/15 Kylee Dailey MD [address] [place], [place] [address] [address] [place], [place] [phone] Internal Medicine 04/01/17 Kayode Ivey MD 6 [place] [address] Gastroenterology 04/01/17 Nicolasa Perez APRN SHERIFF [address] [place] [address] [id number] [place] [address] Nurse Practitioner Nurse Practitioner 04/28/17 Srinivas Stern PA-C [address] [place] [address] 087525 Physician Loan And Credit Manager Physician Loan And Credit Manager 10/02/18 Srinivas Stern PA-C [address] [place] [address] 468295 Assigned Heart and Vascular Provider 11/19/20 06/27/21 Sue Mckeon [facility] [address] [place] [place] [address] [phone] Pharmacist Pharmacist Inside Sales Professional 02/09/21 06/29/22 Karen Trinh MD [address] [place] [place] [address] [phone] Assigned Infectious Disease Provider 02/08/21 07/30/22 [facility] [address] [place] [address] Assigned MTM Pharmacist 02/27/22 05/21/22 Violet Ta, [facility] [address] [place] [address] Assigned MTM Pharmacist 06/02/22 07/09/22 Srinivas Stern PA-C [address] [place] [address] [phone] Assigned Gastroenterology Provider 07/17/22 Bandar Casas RPH [address] [place] [address] Pharmacist Pharmacist 08/18/23 Bandar Casas RP [address] [address] Assigned MTM Pharmacist 08/27/23 Ayana Zhang PA-C [address] [place] [address] [phone] Physician Loan And Credit Manager Rheumatology 04/16/24 Srinivas Stern PA-C [address] [place] [place] [address] [phone] Home Infusion Following Provider Gastroenterology 07/11/24 10/05/24 documented as of this encounter
--- OUTSIDE RECORDS SUMMARY | 2025-01-15 15:48 | XMS_ITS | Encounter Summary ---
Author Organization [place] Address [address] [place] [address]. [place] [address] Care Team Providers Care Bottle Carrier Name Role Phone Jairo Vasquez MD Primary Care Provider [phone] Kylee Dailey MD Unavailable + Kayode Ivey MD Unavailable [phone] Nicolasa Perez APRN KNEE BOLTER Unavaila ble Srinivas Stern PA-C Unavailable Srinivas Stren-C Unavailable Bandar Casas [facility] Unavailable Bandar Casas [facility] Unavailable Ayana Zhang-C Unavailable [phone] Encounter Details Date Type Department Care Team (Late st Contact Info) Description 12/12/2024 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 Ivey, lab order placed for Vedolizumab antibodies and fecal calprotectin. documented in this encounter Plan of Treatment Upcoming Encounters Date Type Department Care Team (Latest Contact Info) Description 02/13/2025 3:20 PM CDT Appointment [facility] [address] [facility] [address] [place] [phone] Kayode Ivey MD 516 [place] [address] 03/07/2025 3:00 PM CDT Ancillary Procedure [address] [place] [address] Srinivas Stern PA-C [address] [place] [address] 04/24/2025 2:40 PM CDT Virtual Visit [facility] Clinic [address] 4th [place] [address] Alexis Torres MD 420 [place], [place] [phone] Srinivas Stern PA-C [address] [place] [address] 06/05/2025 3:30 PM CDT Virtual Visit [facility] 909 [facility] [address] 2nd [place] [address] Kayode Ivey MD 516 [facility] [place] [address] Bandar Casas, [facility] 420 [facility] 812 [place] [address] documented as of this encounter Results * (ABNORMAL) Calprotectin Feces (12/21/2024 5:00 PM CDT) Calprotectin Feces 65.4(H) 0.0 - 49.9 mg/kg 12/24/2024 12:06 PM CDT [facility]/END O Comment:Borderline result, p lease re-evaluate and recollect a new sample in 4-6 weeks. Stool RECTAL CONTENTS / Unknown Non-blood Collection / Unknown 12/21/2024 5:00 PM CDT 12/22/2024 9:21 AM CDT us Kayode Ivey MD LAB - STOOLS ORDERABLES F inal Result [facility]PROT[facility]ENDO [facility]/Prot/Endo [address] [facility] [address] Building, Room [address] * Vedolizumab Level and Antibodies (12/15/2024 11:17 AM CDT) Vedolizumab Concentration 15.1 ug/mL 12/20/2024 6:04 AM CDT [facility] Vedolizumab Antibodies <1.6 U/mL 12/20/2024 6:04 AM CDT [facility] Blood STRUCTURE OF LEFT HAND / Unknown Venipuncture / Unknown 12/15/2024 11:17 AM CDT 12/15/2024 11:19 AM CDT Narrative [facility] - 12/20/2024 6:04 AM CDT Verified by Carlos Kaminski on 12/20/2024. us Kayode Ivey MD LAB - BLOOD ORDERABLES Ed ited Result - Final [facility] [address] [place] [address], [facility] [phone] documented in this encounter Visit Diagnoses Diagnosis Ulcerative colitis with rectal bleeding, unspecified location (H)- Primary documented in this encounter Additional Health Concerns Infection Onset Date Last Indicated Resolved Time MRSA-Contact Isolation Comment: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, chest, and elbow 02/17/2016 02/17/2016 Assessment Noted Time PHQ-9 Depression Total Score: 9 03/02/20 16 7:16 AM CDT documented as of this encounter Care Teams Bottle Carrier Relationship Specialty Start Date End Date Jairo Vasquez MD PCP - General Family Medicine - Sports Medicine 12/29/15 Kylee Dailey MD 6 [facility] 2A [place] [address] Internal Medicine 04/01/17 Kayode Ivey MD 6 [place] [address] Gastroenterology 04/01/17 Nicolasa Perez APRN KNEE BOLTER [address] [place] [address] [place] [address] Nurse Practitioner Nurse Practitioner 04/28/17 Srinivas Stern PA-C 909 [place] [address] Physician Screw Driver Operator Physician Screw Driver Operator 10/02/18 Srinivas Stern PA-C 909 [place] [address] Assigned Gastroenterology Provider 07/17/22 Bandar Casas RPH [address] [place] [address] Pharmacist Pharmacist 08/18/23 Bandar Casas RPH [address] [place] [address] 369255 Assigned MTM Pharmacist 08/27/23 Ayana Zhang PA-C 5[address] [place] [address] Physician Screw Driver Operator Rheumatology 04/16/24 documented as of this encounter
--- OUTSIDE RECORDS SUMMARY | 2025-01-15 15:48 | XMS_ITS | Encounter Summary ---
Author Organization [place] Address [address] [place] [address]. [place] [address] Care Team Providers Care Business Systems Manager Name Role Phone Jairo Vasquez MD Primary Care Provider Kylee Dailey MD Unavailable + Kayode Ivey MD Unavailable Nicolasa Perez APRN ROSE GROWER Unavaila ble Srinivas Stern PA-C Unavailable Srinivas Stern-C Unavailable [phone] Bandar Casas [facility] Unavailable [phone] Bandar Casas [facility] Unavailable Ayana Zhang PA-C Unavailable Encounter Details Date Type Department Care Team (Late st Contact Info) Description 12/07/2024 [facility] Advice [facility] [address] [facility] [address] 2nd [place] [address] Bandar Casas, [facility] 420 [facility] 812 [place] [address] Social History Tobacco Use Types [...] on file 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 Gender Identity Not on file Sexual Orientation Not on file 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 Plan of Treatment Upcoming Encounters Date Type Department Care Team (Latest Contact Info) Description 02/13/2025 3:20 PM CDT Appointment [facility] Imaging [address] [facility] [address] [place] [phone] Kayode Ivey MD [address] [place] [address] 03/07/2025 3:00 PM CDT Ancillary Procedure [address] [place] [address] Srinivas Stern PA-C [address] [place] [address] [phone] 04/24/2025 2:40 PM CDT Virtual Visit [facility] [address] [phone] Alexis Torres MD 420 [place], [place] 587145 Srinivas Stern PA-C [address] [place] [address] [phone] 06/05/2025 3:30 PM CDT Virtual Visit [facility] GI [address] [phone] Kayode Ivey MD [address] [place] [address] [phone] Bandar Casas, [facility] 420 [facility] 812 [place] [address] documented as of this encounter Visit Diagnoses Not on filedocumented in this encounter Additional Health Concerns Infection Onset Date Last Indicated Resolved Time MRSA-Contact Isolation Comment: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, chest, and elbow 02/17/2016 02/17/2016 Assessment Noted Time PHQ-9 Depression Total Score: 9 03/02/20 16 7:16 AM CDT documented as of this encounter Care Teams Business Systems Manager Relationship Specialty Start Date End Date Jairo Vasquez MD PCP - General Family Medicine - Sports Medicine 12/29/15 Kylee Dailey MD [facility] [place], [place] [address]24[address] Internal Medicine 04/01/17 Kayode Ivey MD [address] [place] [address] 140775 Gastroenterology 04/01/17 Nicolasa Perez APRN ROSE GROWER [address] [place] [address] [id number] [place], [place] 244635 Nurse Practitioner Nurse Practitioner 04/28/17 Srinivas Stern PA-C [address] [place] [address] [phone] Physician Powdered Sugar Supervisor Physician Powdered Sugar Supervisor 10/02/18 Srinivas Stern PA-C [address] [place] [address] 030705 Assigned Gastroenterology Provider 07/17/22 Bandar Casas RPH [address] [place] 530982 [place], [place] 102705 Pharmacist Pharmacist 08/18/23 Bandar Casas RPH [address] [place] 530982 [place], [place] 267015 Assigned MTM Pharmacist 08/27/23 Ayana Zhang PA-C 5200 [place] [address] Physician Powdered Sugar Supervisor Rheumatology 04/16/24 documented as of this encounter
--- OUTSIDE RECORDS SUMMARY | 2025-01-15 15:48 | XMS_ITS | Encounter Summary ---
Author Organization [facility] Address [address] [place] [address] Care Team Providers Care Bottle Selector Name Role Phone Jairo Vasquez MD Primary Care Provider Kylee Dailey MD Unavailable + Kayode Ivey MD Unavailable [phone] Nicolasa Perez APRN [facility] Unavaila ble Srinivas Stern PA-C Unavailable [phone] Srinivas Stern-C Unavailable [phone] Bandar Casas [facility] Unavailable Bandar Casas [facility] Unavailable Ayana Zhang PA-C Unavailable Reason for Visit * Reason Comments Med Change Request Encounter Details Date Type Department Care Team ([facility] st Contact Info) Description 12/30/2024 [facility] [address] [facility] 2nd [place] [address] Kayode Ivey MD [address] [place] [address] Med Change Request Social History Tobacco Use Types Packs/Day Years [...] on file 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 See MYC 12/24/2024. Request denied to pharmacy. Kennedy Casas, PharmD, BCPS [place] Pharmacist [facility] Gastroenterology documented in this encounter Plan of Treatment Upcoming Encounters Date Type Department Care Team (Latest Contact Info) Description 02/13/2025 3:20 PM CDT Appointment [facility] Imaging [address] [facility] [address] [place] [address] Kayode Ivey MD [address] [place] [address] 03/07/2025 3:00 PM CDT Ancillary Procedure [address] [place] [address] Srinivas Stern PA-C [address] [place] [address] 04/24/2025 2:40 PM CDT Virtual Visit [facility] G[facility]ology Clinic [address] [place] [address] Alexis Torres MD 420 [place] [address] Srinivas Stern PA-C 909 [place], [place] 57[address] 06/05/2025 3:30 PM CDT Virtual Visit [facility] GI MTM [address] [facility] [address] 2nd [place] [phone] Kayode Ivey MD [address] [place], [place] 0765[address] Bandar Casas, [facility] 420 [facility] 812 [place], [place] [address] documented as of this encounter Visit Diagnoses [...] as of this encounter Care Teams Bottle Selector Relationship Specialty Start Date End Date Jairo Vasquez MD PCP - General Family Medicine - Sports Medicine 12/29/15 Kylee Dailey MD [address] [place] [address] [address] [place], [place] [phone] Internal Medicine 04/01/17 Kayode Ivey MD [address] [place] [address] [id number] Gastroenterology 04/01/17 Nicolasa Perez APRN [employer]X ENGINEER [address] [place] [address] [id number] [place], [place] 187755 Nurse Practitioner Nurse Practitioner 04/28/17 Srinivas Stern PA-C 909 [place], [place] 532775 Physician Faculty Research Assistant Physician Faculty Research Assistant 10/02/18 Srinivas Stern PA-C 909 [place], [place] 557655 Assigned Gastroenterology Provider 07/17/22 Bandar Casas RPH [address] [address] Pharmacist Pharmacist 08/18/23 Bandar Casas RPH [address] [address] Assigned MTM Pharmacist 08/27/23 Ayana Zhang PA-C 5200 [place] [address] Physician Faculty Research Assistant Rheumatology 04/16/24 documented as of this encounter
--- OUTSIDE RECORDS SUMMARY | 2025-01-15 15:48 | XMS_ITS | Encounter Summary ---
Author Organization [facility] Address [address] [place] [address] Care Team Providers Care Health And Safety Technician Name Role Phone Jairo Vasquez MD Primary Care Provider Kylee Dailey MD Unavailable + Kayode Ivey MD Unavailable [phone] Nicolasa Perez APRN WEATHER STRIP MECHANIC Unavaila ble Srinivas Stern-C Unavailable [phone] Srinivas Stern-C Unavailable Bandar Casas [facility] Unavailable [phone] Bandar Casas [facility] Unavailable Ayana Zhang-C Unavailable Reason for Visit * Reason Onset Date Comments Prior Auth - Medication 12/26/2024 Budesoni de foam Encounter Details Date Type Department Care Team (Late st Contact Info) Description 12/26/2024 Telephone [facility] [place] [address] [facility] [address] [place] [address] Kayode Ivey MD [address] [place] [address] Prior Auth - Medication (Budesonide foam) Social History Tobacco Use Types Packs/Day Years [...] on file 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 Gender Identity Not on file Sexual Orientation Not on file 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 Miscellaneous Notes * Telephone Encounter - Dino Alas - 01/14/2025 10:46 AM CDT Per insurance it is still under review with outcome date of 02/03 * Telephone Encounter - Dino Alas - 01/09/2025 8:32 AM CDT Medication Appeal Initiation Medication: BUDESONIDE 2 MG/ACT RE FOAM Appeal Start Date: 01/09/2025 Insurance Company: [employer] Phone- [phone] Fax- [phone] Comments: Per insurance it is still pending--they are processing the new request as an appeal * Telephone Encounter - Dino Alas - 01/08/2025 9:29 AM CDT Pa pending * Telephone Encounter - Dino Alas - 01/04/2025 8:08 AM CDT [id number] Submitted again under UC diagnosis * Telephone Encounter - Dino Alas - 01/03/2025 3:07 PM CDT Images from the original note were not included. PRIOR AUTHORIZATION DENIED Medication: BUDESONIDE 2 MG/ACT RE FOAM Insurance Company: [employer] Phone- [phone] Fax- [phone] Denial Date: 01/03/2025 Denial Reason(s): Appeal Information: Patient Notified: * Telephone Encounter - Dino Alas - 01/02/2025 8:35 AM CDT Per insurance it is still in review * Telephone Encounter - Dino Alas - 12/31/2024 9:07 AM CDT Per insurance it is still in review * Telephone Encounter - Dino Alas - 12/26/2024 3:22 PM CDT Images from the original note were not included. PA Initiation Medication: BUDESONIDE 2 MG/ACT RE FOAM Insurance Company: [employer] Phone- [phone] Fax- [phone] Pharmacy Filling the Rx: Filling Pharmacy Phone: Filling Pharmacy Fax: Start Date: 12/26/2024 [id number] documented in this encounter Plan of Treatment Upcoming Encounters Date Type Department Care Team (Latest Contact Info) Description 02/13/2025 3:20 PM CDT Appointment [facility] Imaging [address] [facility] [address] [place] [address] Kayode Ivey MD [address] [place] [id number] 03/07/2025 3:00 PM CDT Ancillary Procedure [facility] [address] [place] [address] Srinivas Stern PA-C [address] [place] [address] [phone] 04/24/2025 2:40 PM CDT Virtual Visit [facility] [address] [place] [phone] Alexis Torres MD 420 [place] [address] Srinivas Stern PA-C [address] [place] [address] 06/05/2025 3:30 PM CDT Virtual Visit [facility] [address] [place] [address] Kayode Ivey MD [address] [place], [place] [address]185 Bandar Casas RPH 420 [facility] 812 [place] [address] documented as of this encounter Visit Diagnoses Not on filedocumented in this encounter Additional Health Concerns Infection Onset Date Last Indicated Resolved Time MRSA-Contact Isolation Comment: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, chest, and elbow 02/17/2016 02/17/2016 Assessment Noted Time PHQ-9 Depression Total Score: 9 03/02/20 16 7:16 AM CDT documented as of this encounter Care Teams Health And Safety Technician Relationship Specialty Start Date End Date Jairo Vasquez MD PCP - General Family Medicine - Sports Medicine 12/29/15 Kylee Dailey MD [address] [place] [address] [address] [place] [address] Internal Medicine 04/01/17 Kayode Ivey MD 6 [place] [address] Gastroenterology 04/01/17 Nicolasa Perez APRN WEATHER STRIP MECHANIC [address] [place] [address] [id number] [place] [address] Nurse Practitioner Nurse Practitioner 04/28/17 Srinivas Stern PA-C 9 [place], [place] [address] Physician Rack Worker Physician Rack Worker 10/02/18 Srinivas Stern PA-C 909 [place], [place] 136485 Assigned Gastroenterology Provider 07/17/22 Bandar Casas RPH [address] 817352 [place], [place] 3[address]85 Pharmacist Pharmacist 08/18/23 Bandar Casas RPH [address] [phone] Assigned MTM Pharmacist 08/27/23 Ayana Zhang PA-C [address] [place] [address] Physician Rack Worker Rheumatology 04/16/24 documented as of this encounter
--- OUTSIDE RECORDS SUMMARY | 2025-01-15 15:48 | XMS_ITS | Encounter Summary ---
Author Organization [facility] Address [address] [place] [address] Care Team Providers Care Key Account Representative Name Role Phone Jairo Vasquez MD Primary Care Provider [phone] Kylee Dailey MD Unavailable + Kayode Ivey MD Unavailable [phone] Nicolasa Perez APRN SUPERVISOR TUMBLERS Unavaila ble Srinivas Stern PA-C Unavailable [phone] Srinivas Stern PA-C Unavailable [phone] Bandar Casas [facility] Unavailable [phone] Bandar Casas [facility] Unavailable Ayana Zhang PA-C Unavailable Reason for Referral * Diagnostic Imaging Dexa (Routine) - Pending Review Specialty Diagnoses / Procedures Referred By Pérez t Referred To Contact Radiology. Diagnoses Ulcerative colitis with rectal bleeding, unspecified location (H) Procedures DX Bone Density Srinivas Stern PA-C 909 [place] [address] Phone: tel: fax: Referral ID Status Reason Start Date Expiration Date V isits Requested Visits Authorized [id number] Pending Review 12/05/2024 12/05/2025 1 1 Reason for Visit * Reason Comments Medication Therapy Management * (Routine) - Pending Review Specialty Diagnoses / Procedures Referred By Pérez fish Referred To Contact Referral ID Status Reason Start Date Expiration Date V isits Requested Visits Authorized [id number] Pending Review 11/25/2024 11/25/2025 1 1 Encounter Details Date Type Department Care Team (Late st Contact Info) Description 12/05/2024 3:00 PM CDT Virtual Visit [facility] 9[address] [facility] [address] 2nd [place] [address] Srinivas Stern PA-C 909 [place] [address] Badnar Casas RPH 420 [facility] 812 [place] [address] Ulcerative colitis with rectal bleeding, [...] on file Legal Sex 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 This will give the Entyvio time to start working again. After you stop the Entyvio, you should wait at least a month before completing the repeat fecal calprotectin. Igor will consider the following vaccines: Annual flu shot Updated COVID-19 vaccine Tetanus booster (Tdap) Pneumococcal pneumonia (Prevnar-20) Shingles (Shingrix 2-dose series) Reminder to complete a routine skin check annually. Start Vitamin D 1000 units once daily. I recommend a calcium goal of 1000 mg/day between diet and supplementation. Please review the foodsyou eat and see if you are getting at least 1000 mg/day of calcium from your diet. If you are not getting adequate calcium from your diet then consider supplementation with calcium carbonate 500 mg tablet once or twice daily. https://www.dietaryguidelines.gov/wckk-ydhgpis-wqtclxa I've placed an order for a DEXA scan to look at your bone density. To schedule the DEXA call the imaging schedulers at [phone]. For an vek-sa-tcfstu estimate, call the Cost of Care estimate lineat [phone]. Follow-up: 06/05/2025 at 3:30 PM (telephone) It was great speaking with you today. I value your experience and would be very thankful for your time in providing feedback in our clinic survey. In the next few days, you may receive an email or text message from [employer] with a link to a survey related to your ???clinical pharmacist. To schedule another MTM appointment, please call the clinic directly or you may call the MTM scheduling line at [phone] or toll-free at . My Clinical Pharmacist's contact information: Please feel free to contact me with any questions or concerns you have. Bandar Casas, PharmCarolin, BCPS MTM Pharmacist [facility] Gastroenterology documented in this encounter Progress Notes * Bandar Casas, [facility] - 12/05/2024 3:00 PM CDT Images from the original note were not included. Medication Therapy Management (MTM) Encounter ASSESSMENT: Medication Adherence/Access: No issues identified. Ulcerative Colitis: Igor would benefit from continued treatment with Entyvio 108 mg every 14 days. They are up to date on routine maintenance labs. They are up to date on annual tuberculosis screening. No access issues for their advanced therapy are present. They are indicated for a few vaccinations which were recommended to them. They are not getting adequate calcium in their diet and supplementation was recommend ed. They are indicated for a DEXA scan and an order has been placed with this encounter with a co-sign by Srinivas Stern PA-C. Reminders for routine skin cancer screening were provided. Regarding his current symptoms, per discussion with Kayode Ivey MD will treat with a short courseof budesonide x 4 weeks. Entocort is preferred by his insurance despite being off-label in ulcerative colitis. Based on chart review it appears he used Entocort in past. PLAN: I have sent a prescription for budesonide (Entocort) take 3 capsules (9 mg) by mouth daily x 4 weeks. This will give the Entyvio time to start working again. After you stop the Entyvio, you should wait at least a month before completing the repeat fecal calprotectin. Igor will consider the following vaccines: Annual flu shot Updated COVID-19 vaccine Tetanus booster (Tdap) Pneumococcal pneumonia (Prevnar-20) Shingles (Shingrix 2-dose series) Reminder to complete a routine skin check. Start Vitamin D 1000 units once daily. I recommend a calcium goal of 1000 mg/day between diet and supplementation. Please review the foodsyou eat and see if you are getting at least 1000 mg/day of calcium from your diet. If you are not getting adequate calcium from your diet then consider supplementation with calcium carbonate 500 mg tablet once or twice daily. https://www.dietaryguidelines.gov/tebx-bqaoooj-cmievbi I've placed an order for a DEXA scan to look at your bone density. To schedule the DEXA call the imaging schedulers at [phone]. For an hxy-zx-yictlt estimate, call the Cost of Care estimate lineat [phone]. Follow-up: 06/05/2025 at 3:30 PM (telephone) SUBJECTIVE/OBJECTIVE: Igor Flores is a 49 year old male seen for a follow-up visit. Reason for visit: Entyvio + IBD health maintenance. Allergies/ADRs: Reviewed in chart Past Medical History: Reviewed in chart Tobacco: He reports that he has never smoked. He has never used smokeless tobacco. Alcohol: Less than 1 beverage / month Medication Adherence/Access: no issues reported. Ulcerative Colitis: Entyvio 108 mg subcutaneous every 14 days Met with Igor for a routine follow-up visit. He started Entyvio pens 11/23/2024 in setting of concern of adverse reactions from Entyvio IV infusions. Prior to transition, his last infusion was 08/07/2024, see last MTM visit 10/04/2024 for more details. Overall the transition seems to have gone well from a side effect standpoint, but concern there has been some loss of response due to the extended interruption. Copied plan MD [facility] 10/24/2024: -- Start the Entyvio (vedolizumab) injections as soon as you get the pens -- Plan for fecal calprotectin and vedolizumab level in ~December once you have been on the medicationfor at least a month -- Continue labs every 3-4 months PRO-2 for Ulcerative Colitis Please select the one best answer for the patient's ability at this time How would you rate your stool frequency over the last 3 days? 1-2 stools more than normal: 1 point some occasional urgency How would you rate the severity of your rectal bleeding over the last 3 days? None: 0 points 3. Over the last week, how would you rate your general well-being? Generally Well Score: 1 (do not include question 3 in scoring) 0: Inactive Disease 1-1.5: Remission 6: Active disease and spontaneous bleeding Last provider visit: 10/24/2024 MD [facility] Next provider visit: 04/24/2025 NATASHA Stern Last labs completed: 11/12/2024 Lab frequency: every 3 months - standing labs hepatic, crp, cbc with platelets & diff 07/09/2025 Next labs due: 02/12/2025 (fecal calpro around 12/24/2024) Specialty medication department: [facility] MTM GI Prior authorization status: approved through 04/16/2025 Original start date: first Entyvio pen 11/23/2024 Last dose: 11/23/2024 Next dose: 12/07/2024 IBD Health Maintenance Vaccinations: All patients on immunosuppression should avoid live vaccines unless specifically indicated. -- Influenza (every year)- last 08/2022 -- TdaP (every 10 years)- last 2012 -- Pneumococcal Pneumonia Prevnar-13: not on file Pneumovax-23: 04/03/2016 Prevnar-20: not on file -- COVID-19 09/04/2021, 10/02/2021, 02/05/2022 One time confirmation of immunity or serologies: -- Hepatitis A (serologies or immunizations)- not on file -- Hepatitis B (serologies or immunizations) serology indicate not immune 2016, vaccinated 11/19/2019, 06/06/2020 -- Varicella/Zoster Varicella- born prior to 1980 Zoster- not on file Due to the immunosuppression in this patient, I would not advise administration of live vaccines such as varicella/VZV, intranasal influenza, MMR, or yellow fever vaccine (if traveling). Immunosuppressive Screening: -- Hep B Surface Antibody non-reactive 03/24/2017- hepatitis B vaccine in 2019 -- Hep B Surface Antigen non-reactive 03/24/2017 -- Hep B Core Antibody non-reactive 03/24/2017 -- Hep C Antibody non-reactive 03/24/2017 -- Yearly assessment of TB negative 07/17/2024 Lab Results Component Value Date AUSAB 0.00 03/24/2017 HEPBANG Nonreactive 03/24/2017 HBCAB Nonreactive 03/24/2017 HCVAB 03/24/2017 Nonreactive Assay performance characteristics have not been established for newborns, infants, and children TBRES Negative 07/17/2024 Bone mineral density screening -- Recommend all patients supplement with calcium and vitamin D - Patient reports 1-2 servings/day Cancer Screening: Colon cancer screening: Copied from MD [facility] 10/24/2024: Not due currently, will be due for surveillance starting at 8 years of diagnosis (2025) Skin cancer screening: Annual visual exam of skin by health advocate since patient is immunocompromised Depression Screening: PHQ-2 Score: 10/24/2024 8:14 AM 10/23/2024 5:24 PM PHQ-2 (??1998 Pfizer) Q1: Little interest or pleasure in doing things 0 1 Q2: Feeling down, depressed or hopeless 0 0 PHQ-2 Score 0 1 Q1: Little interest or pleasure in doing things Several days Q2: Feeling down, depressed or hopeless Not at all PHQ-2 Score 1 Patient-reported Misc: -- Avoid tobacco use -- Avoid NSAIDs as there is potentially a 25% chance of causing an IBD flare I spent 40 minutes with this patient today. All changes were made via collaborative practice agreement with Kayode Ivey MD/Srinivas Stern PA-C. A summary of these recommendations was sent via [employer]. Bandar Casas, PharmD, BCPS MT Pharmacist [facility] Gastroenterology Telemedicine Visit Details The patient's medications can be safely assessed via a telemedicine encounter. Type of service: Telephone visit Originating Location (pt. Location): Home Distant Location (provider location): Off-site Start Time: 3:00 PM End Time: 3:40 PM Medication Therapy Recommendations No medication therapy recommendations to display documented in this encounter Nursing Notes * Prince Christy - 12/05/2024 3:00 PM CDT Current patient location: [address] [place] [phone] Is the patient currently in the state of [place]? YES Visit mode: TELEPHONE If the visit is dropped, the patient can be reconnected by:TELEPHONE VISIT: Phone number: Telephone Information: Will anyone else be joining the visit? NO (If patient encounters technical issues they should call [phone] :[phone]) Are changes needed to the allergy or medication list? Pt completed echeck-in an confirms medications and allergies are correct. Are refills needed on medications prescribed by this physician? NO Rooming Documentation: Questionnaire(s) not done per department protocol Reason for visit: Consult Prince Christy VVF documented in this encounter Plan of Treatment Upcoming Encounters Date Type Department Care Team (Latest Contact Info) Description 02/13/2025 3:20 PM CDT Appointment [facility] Imaging [address] [facility] [address] [place] [address] Kayode Ivey MD [address] [place] [id number] 03/07/2025 3:00 PM CDT Ancillary Procedure [address] [place] [address] Srinivas Stern PA-C [address] [place] [address] 04/24/2025 2:40 PM CDT Virtual Visit [facility]astroenter[facility] Clinic [address] 4th [place] [address] Alexis Torres MD 420 [place] [address] Srinivas Stern PA-C [address] [place] [id number] 06/05/2025 3:30 PM CDT Virtual Visit [facility] GI [facility] 909 [facility] 2nd [place] [phone] Kayode Ivey MD [address] [place] [address] Bandar Casas RPH 420 [facility] 812 [place], [place] [phone] Scheduled Orders Name Type Priority Associated Diagnoses Orde r Schedule DX Bone Density Imaging Routine Ulcerative colitis with rectal bleeding, unspecified location (H) Expected: 12/06/2024 (Approximate), Expires: 12/05/2025 documented as of this encounter Visit Diagnoses [...] documented as of this encounter Care Teams Key Account Representative Relationship Specialty Start Date End Date Jairo Vasquez MD PCP - General Family Medicine - Sports Medicine 12/29/15 Kylee Dailey MD [address] [place] [address] [address] [place], [place] [address]39[address] Internal Medicine 04/01/17 Kayode Ivey MD [address] [place] [phone] Gastroenterology 04/01/17 Nicolasa Perez APRN SUPERVISOR TUMBLERS [address] [place] [address] [id number] [place], [place] [address] Nurse Practitioner Nurse Practitioner 04/28/17 Srinivas Stern PA-C [address] [place] [address] 447125 Physician Instrument Maintenance Supervisor Physician Instrument Maintenance Supervisor 10/02/18 Srinivas Stern PA-C [address] [place] [address] [id number] Assigned Gastroenterology Provider 07/17/22 Bandar Casas RPH [address] 837662 [place], [place] [phone] Pharmacist Pharmacist 08/18/23 Bandar Casas RPH [address] 0847[address] Assigned MTM Pharmacist 08/27/23 Ayana Zhang PA-C [address] [place] [address] Physician Instrument Maintenance Supervisor Rheumatology 04/16/24 documented as of this encounter
--- OUTSIDE RECORDS SUMMARY | 2025-01-15 15:48 | XMS_ITS | Encounter Summary ---
Author Organization [facility] Address [address] [place] [address]. [place] [address] Care Team Providers Care Manager Residential Name Role Phone Jairo Vasquez MD Primary Care Provider [phone] Kylee Dailey MD Unavailable + Kayode Ivey MD Unavailable [phone] Nicolasa Perez APRN BALLISTICIAN Unavaila ble Srinivas Stern PA-C Unavailable Srinivas Stern-C Unavailable Bandar Casas [facility] Unavailable Bandar Casas [facility] Unavailable [phone] Ayana Zhang PA-C Unavailable Reason for Visit * Reason Onset Date Comments Pt. Information/instruction 12/28/2024 Minco noscopy Encounter Details Date Type Department Care Team (Late st Contact Info) Description 12/28/2024 Telephone [facility] [address] 4th [place] [address] Lilibeth Gamboa, RN Pt. 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 (Please see previous telephone encounter notes for complete details) Patient returned call. Procedure details: Approximate time and facility location reviewed. Patient is aware that endoscopy team will be calling about 2 days prior to confirm arrival time. Designated ambulance driver policy reviewed and that site requests drivers to check in and stay on campus. Instructed to have someone stay 6 hours post procedure. *Disclaimer - please notify the RN GI staff with any ambulance driver issues/concerns. Medication review: Medications reviewed. Please see supporting documentation below. Holding recommendations discussed (if applicable). Prep for procedure: Procedure prep instructions reviewed. Any additional information needed: Patient stated that they did not have anything for prep ready when they went to the pharmacy today.Mechanical Shovel Operator discussed the possibility that they had the script but that they did not fill it. Patient stated that they had been having issues with this pharmacy and they will call them or stop by and ask them to fill it. If patient has any other issues or wishes to have prescription sent to a different pharmacy, they will call. Patient verbalized understanding and had no questions or concerns at this time. Zuly Feliz RN Endoscopy Procedure Pre Assessment [phone] option 3 * Telephone Encounter - Mary Lou Abdullahi LPN - 12/31/2024 8:48 AM CDT Attempted to contact patient in order to complete pre assessment questions. No answer. Left message to return call to [phone] option 3. Callback communication sent via TEVIZZ. Mary Lou Abdullahi LPN * Telephone Encounter - Lilibeth Gamboa RN - 12/28/2024 4:46 PM CDT Pre visit planning completed. Procedure details: Patient scheduled for Colonoscopy on 01/14/25. Approximate arrival time: 1315. Procedure time 1400. *Ensure patient is aware that endoscopy team will be calling about 2 days prior to procedure date to confirm arrival time as this may change. Facility location: [facility] [place]; [address] 2nd Floor, [place] [address]. Check in location: 2nd Floor at Surgery desk. *Disclaimer: Drivers are to check in with patient and stay on campus during procedure. Sedation type: Conscious sedation Pre op exam needed? No. Indication for procedure: Diagnosis Ulcerative pancolitis without complication (H) Chart review: Electronic implanted devices? No Recent diagnosis of diverticulitis within the last 6 weeks? No Medication review: Diabetic? Yes. Oral diabetic medications: Metformin (glucophage): HOLD day of procedure. Insulin: Consult with managing provider. Anticoagulants? No Weight loss medication/injectable? No GLP-1 medication per patient's medication list. Nursing to verify with pre-assessment call. Other medication HOLDING recommendations: N/A Prep for procedure: Bowel prep recommendation: Standard Cindy. Bowel prep sent to [facility] [id number] [place] [address] Due to: diabetes Procedure information and instructions sent via TEVIZZ Lilibeth Gamboa RN Endoscopy Procedure Pre Assessment [phone] option 3 documented in this encounter Plan of Treatment Upcoming Encounters Date Type Department Care Team (Latest Contact Info) Description 02/13/2025 3:20 PM CDT Appointment [facility] [address] [facility] [address] [place] [address] Kayode Ivey MD [address] [place] [address] 844455 03/07/2025 3:00 PM CDT Ancillary Procedure [facility] [address] [place] [address] Srinivas Stern PA-C [address] [place] [address] 094305 04/24/2025 2:40 PM CDT Virtual Visit [facility] [address] 4th [place] [phone] Alexis Torres MD 420 [place] [address] Srinivas Stern PA-C [address] [place] [address] 06/05/2025 3:30 PM CDT Virtual Visit [facility] GI [address] [place] [address] Kayode Ivey MD [address] [place], [place] 09[address] Bandar Casas RPH 420 [facility] 812 [place] [address] documented as of this encounter Visit Diagnoses Diagnosis Ulcerative pancolitis without complication (H)- Primary documented in this encounter Additional Health Concerns Infection Onset Date Last Indicated Resolved Time MRSA-Contact Isolation Comment: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, chest, and elbow 02/17/2016 02/17/2016 Assessment Noted Time PHQ-9 Depression Total Score: 9 03/02/20 16 7:16 AM CDT documented as of this encounter Care Teams Manager Residential Relationship Specialty Start Date End Date Jairo Vasquez MD PCP - General Family Medicine - Sports Medicine 12/29/15 Kylee Dailey MD 516 [facility] 2A [place] [address] Internal Medicine 04/01/17 Kayode Ivey MD 6 [place] [address] Gastroenterology 04/01/17 Nicolasa Perez APRN BALLISTICIAN 909 [facility] [id number] [place], [place] 3357[address] Nurse Practitioner Nurse Practitioner 04/28/17 Srinivas Stern PA-C 909 [place], [place] 955045 Physician Run Lead Physician Run Lead 10/02/18 Srinivas Stern PA-C 909 [place], [place] 869035 Assigned Gastroenterology Provider 07/17/22 Bandar Casas RPH [address] 914032 [place], [place] 4739[address] Pharmacist Pharmacist 08/18/23 Bandar Casas RPH [address] [phone] Assigned MTM Pharmacist 08/27/23 Ayana Zhang PA-C 5200 [place] [address] Physician Run Lead Rheumatology 04/16/24 documented as of this encounter
--- OUTSIDE RECORDS SUMMARY | 2025-01-15 15:48 | XMS_ITS | Encounter Summary ---
Author Organization [facility] Address [address] [place] [address] Care Team Providers Care General Dentist/Owner Name Role Phone Jairo Vasquez MD Primary Care Provider Kylee Dailey MD Unavailable + Kayode Ivey MD Unavailable [phone] Nicolasa Perez APRN [facility] Unavaila ble Srinivas Stern PA-C Unavailable Srinivas Stern PA-C Unavailable Bandar Casas [facility] Unavailable [phone] Bandar Casas [facility] Unavailable Ayana Zhang PA-C Unavailable Encounter Details Date Type Department Care Team (Late st Contact Info) Description 12/22/2024 [facility] [address] [place] [address] Srinivas Stern PA-C 909 [place] [address] Social History Tobacco Use Types [...] on file 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 Gender Identity Not on file Sexual Orientation Not on file 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 Plan of Treatment Upcoming Encounters Date Type Department Care Team (Latest Contact Info) Description 02/13/2025 3:20 PM CDT Appointment [facility] Imaging [address] [facility] [address] [place] [address] Kayode Ivey MD [address] [place] [address] 03/07/2025 3:00 PM CDT Ancillary Procedure [address] [place] [address] Srinivas Stern PA-C [address] [place] [address] [id number] 04/24/2025 2:40 PM CDT Virtual Visit [facility] Gastro[facility]ology Clinic [address] [phone] Alexis Torres MD 420 [place], [place] 6[address] Srinivas Stern PA-C [address] [place] [address] 357055 06/05/2025 3:30 PM CDT Virtual Visit [facility] GI [address] [phone] Kayode Ivey MD [address] [place] [address] 921695 Bandar Casas, [facility] 420 [facility] 812 [place] [address] documented as of this encounter Visit Diagnoses Not on filedocumented in this encounter Additional Health Concerns Infection Onset Date Last Indicated Resolved Time MRSA-Contact Isolation Comment: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, chest, and elbow 02/17/2016 02/17/2016 Assessment Noted Time PHQ-9 Depression Total Score: 9 03/02/20 16 7:16 AM CDT documented as of this encounter Care Teams General Dentist/Owner Relationship Specialty Start Date End Date Jairo Vasquez MD PCP - General Family Medicine - Sports Medicine 12/29/15 Kylee Dailey MD 6 [facility] 2[facility] [place], [place] [phone] Internal Medicine 04/01/17 Kayode Ivey MD [address] [place] [address] 769705 Gastroenterology 04/01/17 Nicolasa Perez APRN TOASTER OPERATOR [address] [place] [address] [id number] [place], [place] 595015 Nurse Practitioner Nurse Practitioner 04/28/17 Srinivas Stern PA-C [address] [place] [address] 535145 Physician Income Tax Consultant Physician Income Tax Consultant 10/02/18 Srinivas Stern PA-C [address] [place] [address] 112155 Assigned Gastroenterology Provider 07/17/22 Bandar Casas RPH [address] 612392 [place], [place] 616[address] Pharmacist Pharmacist 08/18/23 Bandar Casas RPH [address] 612[address] [place], [place] 710415 Assigned MTM Pharmacist 08/27/23 Ayana Zhang PA-C 5200 [place] [address] Physician Income Tax Consultant Rheumatology 04/16/24 documented as of this encounter
--- OUTSIDE RECORDS SUMMARY | 2025-01-15 15:48 | XMS_ITS | Encounter Summary ---
Author Organization [place] Address [address] [place] [address]. [place] [address] Care Team Providers Care Gear Technician Name Role Phone Jairo Vasquez MD Primary Care Provider Kylee Dailey MD Unavailable + Kayode Ivey MD Unavailable Nicolasa Perez APRN [facility] Unavaila ble Srinivas Stern PA-C Unavailable [phone] Srinivas Stern-C Unavailable [phone] Bandar Casas [facility] Unavailable Bandar Casas [facility] Unavailable Ayana Zhang PA-C Unavailable Encounter Details Date Type Department Care Team (Late st Contact Info) Description 01/03/2025 [facility] Medical Advice [facility] 909 [facility] [address] 2nd [place] [address] Bandar Casas, [facility] 420 [facility] 812 [place] [address] Social History Tobacco Use Types [...] on file 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 Gender Identity Not on file Sexual Orientation Not on file 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 Plan of Treatment Upcoming Encounters Date Type Department Care Team (Latest Contact Info) Description 02/13/2025 3:20 PM CDT Appointment [facility] Imaging [address] [facility] [address] [place] [address] Kayode Ivey MD [address] [place] [address] 03/07/2025 3:00 PM CDT Ancillary Procedure [address] [place] [address] Srinivas Stern PA-C [address] [place] [address] [phone] 04/24/2025 2:40 PM CDT Virtual Visit [facility] [address] [phone] Alexis Torres MD 420 [place], [place] 7587[address] Srinivas Stern PA-C [address] [place] [address] [phone] 06/05/2025 3:30 PM CDT Virtual Visit [facility] GI [address] [phone] Kayode Ivey MD [address] [place] [address] 183975 Bandar Casas, [facility] 420 [facility] 812 [place] [address] documented as of this encounter Visit Diagnoses Not on filedocumented in this encounter Additional Health Concerns Infection Onset Date Last Indicated Resolved Time MRSA-Contact Isolation Comment: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, chest, and elbow 02/17/2016 02/17/2016 Assessment Noted Time PHQ-9 Depression Total Score: 9 03/02/20 16 7:16 AM CDT documented as of this encounter Care Teams Gear Technician Relationship Specialty Start Date End Date Jairo Vasquez MD PCP - General Family Medicine - Sports Medicine 12/29/15 Kylee Dailey MD 6 [facility] [place], [place] [address] Internal Medicine 04/01/17 Kayode Ivey MD [address] [place] [address] 638155 Gastroenterology 04/01/17 Nicolasa Perez APRN [facility] [address] [place] [address] [id number] [place], [place] 310605 Nurse Practitioner Nurse Practitioner 04/28/17 Srinivas Stern PA-C [address] [place] [address] [phone] Physician Horizontal Boring Mill Set Up Operator Physician Horizontal Boring Mill Set Up Operator 10/02/18 Srinivas Stern PA-C [address] [place] [address] [id number] Assigned Gastroenterology Provider 07/17/22 Bandar Casas RPH [address] 5[address] [place], [place] 302355 Pharmacist Pharmacist 08/18/23 Bandar Casas RPH [address] 5[address] [place], [place] 850425 Assigned MTM Pharmacist 08/27/23 Ayana Zhang PA-C 5200 [place] [address] Physician Horizontal Boring Mill Set Up Operator Rheumatology 04/16/24 documented as of this encounter
--- OUTSIDE RECORDS SUMMARY | 2025-01-15 15:48 | XMS_ITS | Encounter Summary ---
Author Organization [facility] Address [address] [place] [address] Care Team Providers Care Test Carrier Name Role Phone Jairo Vasquez MD Primary Care Provider [phone] Kyele Dailey MD Unavailable + Kayode Ivey MD Unavailable [phone] Nicolasa Perez APRN SOIL BIOLOGY TEACHER Unavaila ble Srinivas SternC Unavailable [phone] PitSrinivas mcintosh PA-C Unavailable [phone] Sue Mckeon [facility] Unavailable [phone] Karen Trinh MD Unavailable [phone] Violet Ta [facility] Unavailable [phone] Violet Ta [facility] Unavailable [phone] PitSrinivas mcintosh PA-C Unavailable [phone] Bandar Casas [facility] Unavailable Bandar Casas [facility] Unavailable [phone] Ayana Zhang PA-C Unavailable PitSrinivas mcintosh PA-C Unavailable [phone] Encounter Details Date Type Department Care Team (Late st Contact Info) Description 04/03/2021 [facility] Medical [facility] [address] [phone] Kayode Ivey MD [address] [place] [address] 724275 Social History Tobacco Use Types Packs/Day Years Used Date Smoking Tobacco: Never Smokeless Tobacco: Never Alcohol Use Standard Drinks/Week Comments Yes 13 (1 standard drink = 0.6 oz pu re alcohol) MONTHLY PHQ-2 Answer Date Recorded PHQ-2 Score 1 01/28/2021 Sex and Gender Information Value Date Recorded Sex Assigned at Not on file Legal Sex 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 REGIONAL GUIDE Gender Identity Not on file Sexual Orientation [...] CDT Appointment [facility] Imaging [address] [facility] [address] [place] [phone] Kayode Ivey MD [address] [place] [address] [id number] 03/07/2025 3:00 PM CDT Ancillary Procedure [facility] 303 [facility] [address] [place] [address] Srinivas Stern PA-C [address] [place] [address] [phone] 04/24/2025 2:40 PM CDT Virtual Visit [facility] [address] [phone] Alexis Torres MD 420 [place], [place] [address] Srinivas Stern PA-C 909 [place], [place] 470355 06/05/2025 3:30 PM CDT Virtual Visit [facility] 909 [facility] 2nd [place] [address] Kayode Ivey MD 516 [place], [place] 24[address]15 Bandar Casas, [facility] 420 [facility] 812 [place], [place] 7[address] documented as of this encounter Visit Diagnoses Not on filedocumented in this encounter Additional Health Concerns Infection Onset Date Last Indicated Resolved Time MRSA-Contact Isolation Comment: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, chest, and elbow 02/17/2016 02/17/2016 Rule Out C-difficile 10/04/2023 10/05/2023 024 7:28 PM REGIONAL GUIDE C-difficile 10/05/2023 10/05/2023 11/04/2023 11:3 9 PM REGIONAL GUIDE Rule Out C-difficile 09/03/2024 09/04/2024 025 12:45 PM REGIONAL GUIDE Assessment Noted Time PHQ-9 Depression Total Score: 9 03/02/20 16 7:16 AM CDT documented as of this encounter Care Teams Test Carrier Relationship Specialty Start Date End Date Jairo Vasquez MD PCP - General Family Medicine - Sports Medicine 12/29/15 Kylee Dailey MD [address] [place], [place] [address]B 2A [place], [place] [address] Internal Medicine 04/01/17 Kayode Ivey MD 6 [place] [address] Gastroenterology 04/01/17 Nicolasa Perez APRN SOIL BIOLOGY TEACHER [address] [place] [address] [id number] [place] [address] Nurse Practitioner Nurse Practitioner 04/28/17 Srinivas Stern PA-C [address] [place] [address] [phone] Physician Tier Lift Operator Physician Tier Lift Operator 10/02/18 Srinivas Stern PA-C [address] [place] [address] 487475 Assigned Heart and Vascular Provider 11/19/20 06/27/21 Sue Mckeon [facility] [address] [place] [address] [phone] Pharmacist Pharmacist Shop Assistant 02/09/21 06/29/22 Karen Trinh MD [address] [place] [address] 806605 Assigned Infectious Disease Provider 02/08/21 07/30/22 [facility] [address] [place] [address] Assigned MTM Pharmacist 02/27/22 05/21/22 Violet Ta, [facility] [address] [place] [address] Assigned MTM Pharmacist 06/02/22 07/09/22 Srinivas Stern PA-C [address] [place] [address] 890815 Assigned Gastroenterology Provider 07/17/22 Bandar Casas RPH [address] [place] [address] Pharmacist Pharmacist 08/18/23 Bandar Casas RP [address] [address] Assigned MTM Pharmacist 08/27/23 Ayana Zhang PA-C [address] [place] [address] [id number] Physician Tier Lift Operator Rheumatology 04/16/24 Srinivas Stern PA-C [address] [place] [address] 034475 Home Infusion Following Provider Gastroenterology 07/11/24 10/05/24 documented as of this encounter
--- OUTSIDE RECORDS SUMMARY | 2025-01-15 15:48 | XMS_ITS | Encounter Summary ---
Author Organization [place] Address [address] [place] [address] Care Team Providers Care Senior Integration Architect Name Role Phone Jairo Vasquez MD Primary Care Provider [phone] Kylee Dailey MD Unavailable + Kayode Ivey MD Unavailable [phone] Nicolasa Perez APRN CREATIVE SERVICES WRITER Unavaila ble Srinivas Stern-C Unavailable [phone] Srinivas Stern-C Unavailable [phone] Bandar Casas [facility] Unavailable [phone] Bandar Casas [facility] Unavailable [phone] Ayana Zhang-C Unavailable [phone] Encounter Details Date Type Department Care Team (Latest Contact Info) Description 12/15/2024 Travel Social History Tobacco Use Types Packs/Day Years [...] on file 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 Gender Identity Not on file Sexual Orientation Not on file 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 Plan of Treatment Upcoming Encounters Date Type Department Care Team (Latest Contact Info) Description 02/13/2025 3:20 PM CDT Appointment [facility] Imaging [address] [facility] [address] [place] [phone] Kayode Ivey MD 6 [place], [place] 274505 03/07/2025 3:00 PM CDT Ancillary Procedure [facility] 303 [facility] [address] [place] [address] Srinivas Stern PA-C [address] [place] [address] [phone] 04/24/2025 2:40 PM CDT Virtual Visit [facility]astro[facility] Clinic [address] [place] [phone] Alexis Torres MD 420 [place], [place] 0[address] Srinivas Stern PA-C [address] [place] [address] [phone] 06/05/2025 3:30 PM CDT Virtual Visit [facility] GI [facility] [address] [place] [address] 2nd [place] [address] Kayode Ivey MD 6 [place], [place] 7[address]05 Bandar Casas RPH 420 [facility] 812 [place] [address] documented as of this encounter Visit Diagnoses Not on filedocumented in this encounter Additional Health Concerns Infection Onset Date Last Indicated Resolved Time MRSA-Contact Isolation Comment: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, chest, and elbow 02/17/2016 02/17/2016 Assessment Noted Time PHQ-9 Depression Total Score: 9 03/02/20 16 7:16 AM CDT documented as of this encounter Care Teams Senior Integration Architect Relationship Specialty Start Date End Date Jairo Vasquez MD PCP - General Family Medicine - Sports Medicine 12/29/15 Kylee Dailey MD 516 [facility] 2A [place] [address] Internal Medicine 04/01/17 Kayode Ivey MD 6 [place] [address] Gastroenterology 04/01/17 Nicolasa Perez APRN CREATIVE SERVICES WRITER 909 [facility]2121CJ [place], [place] [address] Nurse Practitioner Nurse Practitioner 04/28/17 Srinivas Stern PA-C 9 [place], [place] [address]55 Physician Features Editor Physician Features Editor 10/02/18 Srinivas Stern PA-C 909 [place] [address] Assigned Gastroenterology Provider 07/17/22 Bandar aCsas RPH [address] [address] Pharmacist Pharmacist 08/18/23 Bandar Casas RPH [address] [place] [address] 812 [place] [address] Assigned MTM Pharmacist 08/27/23 Ayana Zhang PA-C 5200 [place], [place] 6607492 Physician Features Editor Rheumatology 04/16/24 documented as of this encounter
--- OUTSIDE RECORDS SUMMARY | 2025-01-15 15:48 | XMS_ITS | Encounter Summary ---
Author Organization [place] Address [address] [place] [address] Care Team Providers Care Caddie Name Role Phone Jairo Vasquez MD Primary Care Provider [phone] Kylee Dailey MD Unavailable + Kayode Ivey MD Unavailable [phone] Nicolasa Perez APRN LABORATORY CUREMAN Unavaila ble Srinivas Stern PA-C Unavailable [phone] PitSrinivas mcintosh PA-C Unavailable [phone] Sue Mckeon [facility] Unavailable [phone] Karen Trinh MD Unavailable [phone] Violet Ta [facility] Unavailable Violet Ta [facility] Unavailable [phone] PitSrinivas mcintosh PA-C Unavailable [phone] Bandar Casas [facility] Unavailable [phone] Bandar Casas [facility] Unavailable [phone] Ayana Zhang PA-C Unavailable PitSrinivas mcintosh PA-C Unavailable [phone] Encounter Details Date Type Department Care Team (Late st Contact Info) Description 03/26/2021 [facility] [address] [place] [address] 5th [place] [phone] Marium Burnett RN Social History Tobacco Use Types Packs/Day Years Used Date Smoking Tobacco: Never Smokeless Tobacco: Never Alcohol Use Standard Drinks/Week Comments Yes 13 (1 standard drink = 0.6 oz pu re alcohol) MONTHLY PHQ-2 Answer Date Recorded PHQ-2 Score 1 01/28/2021 Sex and Gender Information Value Date Recorded Sex Assigned at Not on file 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 No / Unsure 03/28/2021 7:18 AM CDT documented as of this encounter Plan of Treatment Upcoming Encounters Date Type Department Care Team (Latest Contact Info) Description 02/13/2025 3:20 PM CDT Appointment [facility] Imaging [address] [facility] [address] [place] [address] Kayode Ivey MD 6 [place], [place] [phone] 03/07/2025 3:00 PM CDT Ancillary Procedure [address] [place] [address] Srinivas Stern PA-C [address] [place] [address] 862535 04/24/2025 2:40 PM CDT Virtual Visit [facility] [address] [phone] Alexis Torres MD 420 [place], [place] 153715 Srinivas Stern PA-C 909 [place] [address] 06/05/2025 3:30 PM CDT Virtual Visit Viola MADERA MTM 909 [facility] 2nd [place] [phone] Kayode Ivey MD 516 [place], [place] 777335 Bandar Casas, [facility] 420 [facility] 812 [place], [place] 905605 documented as of this encounter Visit Diagnoses Not on filedocumented in this encounter Additional Health Concerns Infection Onset Date Last Indicated Resolved Time MRSA-Contact Isolation Comment: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, chest, and elbow 02/17/2016 02/17/2016 Rule Out C-difficile 10/04/2023 10/05/2023 024 7:28 PM MAINTENANCE SERVICE DISPATCHER C-difficile 10/05/2023 10/05/2023 11/04/2023 11:3 9 PM MAINTENANCE SERVICE DISPATCHER Rule Out C-difficile 09/03/2024 09/04/2024 025 12:45 PM MAINTENANCE SERVICE DISPATCHER Assessment Noted Time PHQ-9 Depression Total Score: 9 03/02/20 16 7:16 AM CDT documented as of this encounter Care Teams Caddie Relationship Specialty Start Date End Date Jairo Vasquez MD PCP - General Family Medicine - Sports Medicine 12/29/15 Kylee Dailey MD [address] [place] [address] 2A [place], [place] 033135 Internal Medicine 04/01/17 Kayode Ivey MD [address] [place] [address] 122015 Gastroenterology 04/01/17 Nicolasa Perez APRN LABORATORY CUREMAN [address] [place] [address] [id number] [place] [address] Nurse Practitioner Nurse Practitioner 04/28/17 Srinivas Stern PA-C [address] [place] [address] Physician Landcare Facilitator Physician Landcare Facilitator 10/02/18 Srinivas Stern PA-C [address] [place] [address] Assigned Heart and Vascular Provider 11/19/20 06/27/21 Sue Mckeon [facility] [address] [place] [address] Pharmacist Pharmacist Water And Gas Helper 02/09/21 06/29/22 Karen Trinh MD [address] [place] [address] 15174 Assigned Infectious Disease Provider 02/08/21 07/30/22 Violet Ta [facility] [address] [place] [address] Assigned MTM Pharmacist 02/27/22 05/21/22 Violet Ta [facility] [address] [place] [address] Assigned MTM Pharmacist 06/02/22 07/09/22 Srinivas Stern PA-C 909 [place] [address] Assigned Gastroenterology Provider 07/17/22 Bandar Casas RPH [address] 267335 Pharmacist Pharmacist 08/18/23 Bandar Casas RPH [address] 622805 Assigned MTM Pharmacist 08/27/23 Ayana Zhang PA-C [facility] [place] [address] Physician Landcare Facilitator Rheumatology 04/16/24 Srinivas Stern PA-C 909 [place] [address] Home Infusion Following Provider Gastroenterology 07/11/24 10/05/24 documented as of this encounter
--- OUTSIDE RECORDS SUMMARY | 2025-01-15 15:48 | XMS_ITS | Encounter Summary ---
Author Organization [place] Address [address] [place] [address]. [place] [address] Care Team Providers Care Shopper Insights Manager Name Role Phone Jairo Vasquez MD Primary Care Provider [phone] Kylee Dailey MD Unavailable + Kayode Ivey MD Unavailable [phone] Nicolasa Perez APRN MONITOR TECHNICIAN Unavaila ble Srinivas Stern PA-C Unavailable Srinivas Stern-C Unavailable [phone] Bandar Casas [facility] Unavailable Bandar Casas [facility] Unavailable [phone] Ayana Zhang PA-C Unavailable [phone] Encounter Details Date Type Department Care Team (Late st Contact Info) Description 12/05/2024 [facility] Medical Advice [facility] 9[address] [facility] [address] 2nd [place] [address] Bandar Casas, [facility] 420 [facility] 812 [place] [address] Social History Tobacco Use Types [...] on file 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 Gender Identity Not on file Sexual Orientation Not on file 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 Plan of Treatment Upcoming Encounters Date Type Department Care Team (Latest Contact Info) Description 02/13/2025 3:20 PM CDT Appointment [facility] Imaging [address] [facility] [address] [place] [phone] Kayode Ivey MD [address] [place] [address] 03/07/2025 3:00 PM CDT Ancillary Procedure [address] [place] [address] Srinivas Stern PA-C [address] [place] [address] [phone] 04/24/2025 2:40 PM CDT Virtual Visit [facility] Clinic [address] [phone] Alexis Torres MD 420 [place], [place] 809305 Srinivas Stern PA-C [address] [place] [address] 275105 06/05/2025 3:30 PM CDT Virtual Visit [facility] GI [address] [phone] Kayode Ivey MD [address] [place] [address] 165745 Bandar Casas, [facility] 420 [facility] 812 [place] [address] documented as of this encounter Visit Diagnoses Not on filedocumented in this encounter Additional Health Concerns Infection Onset Date Last Indicated Resolved Time MRSA-Contact Isolation Comment: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, chest, and elbow 02/17/2016 02/17/2016 Assessment Noted Time PHQ-9 Depression Total Score: 9 03/02/20 16 7:16 AM CDT documented as of this encounter Care Teams Shopper Insights Manager Relationship Specialty Start Date End Date Jairo Vasquez MD PCP - General Family Medicine - Sports Medicine 12/29/15 Kylee Dailey MD 6 [facility] 2A [place], [place] 095775 Internal Medicine 04/01/17 Kayode Ivey MD [address] [place] [address] 503615 Gastroenterology 04/01/17 Nicolasa Perez APRN MONITOR TECHNICIAN [address] [place] [address] TO5439IC [place], [place] 161265 Nurse Practitioner Nurse Practitioner 04/28/17 Srinivas Stern PA-C [address] [place] [address] 670555 Physician Lithographing Machine Operator Physician Lithographing Machine Operator 10/02/18 Srinivas Stern PA-C [address] [place] [address] 938965 Assigned Gastroenterology Provider 07/17/22 Bandar Casas RPH [address] [place] 229482 [place], [place] 360275 Pharmacist Pharmacist 08/18/23 Bandar Casas RPH [address] 229482 [place], [place] 401715 Assigned MTM Pharmacist 08/27/23 Ayana Zhang PA-C 5200 [place] [address] Physician Lithographing Machine Operator Rheumatology 04/16/24 documented as of this encounter
--- OUTSIDE RECORDS SUMMARY | 2025-01-15 15:48 | XMS_ITS | Encounter Summary ---
Author Organization [facility] Address [address] [place] [address] Care Team Providers Care Credit Adjuster Name Role Phone Jairo Vasquez MD Primary Care Provider Kylee Dailey MD Unavailable + Kayode Ivey MD Unavailable [phone] Nicolasa Perez APRN ACCESSORIES REPAIRER Unavaila ble Srinivas Stern PA-C Unavailable Srinivas Stern-C Unavailable Bandar Casas [facility] Unavailable Bandar Casas [facility] Unavailable [phone] Ayana Zhang PA-C Unavailable Reason for Visit * Reason Onset Date Comments FCP 12/20/2024 Encounter Details Date Type Department Care Team (Late st Contact Info) Description 12/20/[address] 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 [address] 4th [place] [phone] Alexis Torres MD 420 [place], [place] 526505 Srinivas Stern PA-C [address] [place] [address] 836715 06/05/2025 3:30 PM CDT Virtual Visit [facility] GI [address] [phone] Kayode Ivey MD [address] [place] [address] 871675 Bandar Casas, [facility] 420 [facility] 812 [place] [address] documented as of this encounter Visit Diagnoses Not on filedocumented in this encounter Additional Health Concerns Infection Onset Date Last Indicated Resolved Time MRSA-Contact Isolation Comment: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, chest, and elbow 02/17/2016 02/17/2016 Assessment Noted Time PHQ-9 Depression Total Score: 9 03/02/20 16 7:16 AM CDT documented as of this encounter Care Teams Credit Adjuster Relationship Specialty Start Date End Date Jairo Vasquez MD PCP - General Family Medicine - Sports Medicine 12/29/15 Kylee Dailey MD 6 [facility] 2A [place], [place] 493935 Internal Medicine 04/01/17 Kayode Ivey MD 6 [place], [place] 0[address]65 Gastroenterology 04/01/17 Nicolasa Perez APRN ACCESSORIES REPAIRER [address] [place] [address] [id number] [place], [place] 723365 Nurse Practitioner Nurse Practitioner 04/28/17 Srinivas Stern PA-C [address] [place] [address] 471595 Physician Buoy Tender Physician Buoy Tender 10/02/18 Srinivas Stern PA-C [address] [place] [address] 307775 Assigned Gastroenterology Provider 07/17/22 Bandar Casas RPH 420 [facility] 812 [place], [place] 772275 Pharmacist Pharmacist 08/18/23 Bandar Casas RPH [address] [place] 765202 [place], [place] 675285 Assigned MTM Pharmacist 08/27/23 Ayana Zhang PA-C 5200 [place] [address] Physician Buoy Tender Rheumatology 04/16/24 documented as of this encounter
--- OUTSIDE RECORDS SUMMARY | 2025-01-15 15:48 | XMS_ITS | Encounter Summary ---
Author Organization [place] Address [address] [place] [address] Care Team Providers Care Acls Specialist Name Role Phone Jairo Vasquez MD Primary Care Provider Kylee Dailey MD Unavailable + Kayode Ivey MD Unavailable [phone] Nicolasa Perez APRN BEVEL OPERATOR Unavaila ble Srinivas Stern PA-C Unavailable [phone] Srinivas Stern-C Unavailable [phone] Bandar Casas [facility] Unavailable Bandar Casas [facility] Unavailable Ayana Zhnag PA-C Unavailable [phone] Reason for Visit * Reason Comments Med Change Request Encounter Details Date Type Department Care Team (Late st Contact Info) Description 12/26/2024 [facility] G[facility] [place] 293749 [facility] 4th [place] [address] Kayode Ivey MD [address] [place] [address] Med Change Request Social History Tobacco [...] on file 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 Kennedy Casas, PharmD, BCPS [place] Pharmacist [facility] documented in this encounter Plan of Treatment Upcoming Encounters Date Type Department Care Team (Latest Contact Info) Description 02/13/2025 3:20 PM CDT Appointment [facility] Imaging [address] [facility] [address] [place] [address] Kayode Ivey MD 516 [place] [address] 03/07/2025 3:00 PM CDT Ancillary Procedure [address] [place] [address] Srinivas Stern PA-C [address] [place] [address] 04/24/2025 2:40 PM CDT Virtual Visit [facility] [address]th [place] [address] Alexis Torres MD 420 [place] [address] Srinivas Stern PA-C 909 [place], [place] 081195 06/05/2025 3:30 PM CDT Virtual Visit Jose MADERA MTM 909 [facility] [address] 2nd [place] [phone] Kayode Ivey MD 516 [place], [place] 091335 Bandar Casas, [facility] 420 [facility] 812 [place], [place] 146845 documented as of this encounter Visit Diagnoses Diagnosis Ulcerative pancolitis without complication (H) documented in this encounter Additional Health Concerns Infection Onset Date Last Indicated Resolved Time MRSA-Contact Isolation Comment: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, chest, and elbow 02/17/2016 02/17/2016 Assessment Noted Time PHQ-9 Depression Total Score: 9 03/02/20 16 7:16 AM CDT documented as of this encounter Care Teams Acls Specialist Relationship Specialty Start Date End Date Jairo Vasquez MD PCP - General Family Medicine - Sports Medicine 12/29/15 Kylee Dailey MD [address] [place], [place] [address]B 2A [place], [place] 932265 Internal Medicine 04/01/17 Kayode Ivey MD [address] [place] [address] 538865 Gastroenterology 04/01/17 Nicolasa Perez APRN BEVEL OPERATOR [address] [place] [address] [id number] [place], [place] 213465 Nurse Practitioner Nurse Practitioner 04/28/17 Srinivas Stern PA-C 909 [place], [place] 251735 Physician Project Surveyor Physician Project Surveyor 10/02/18 Srinivas Stern PA-C 909 [place], [place] 995135 Assigned Gastroenterology Provider 07/17/22 Bandar Casas RPH [address] 509455 Pharmacist Pharmacist 08/18/23 Bandar Casas [place] [address] [place] [address] 995165 Assigned MTM Pharmacist 08/27/23 Ayana Zhang PA-C 5200 [place] [address] Physician Project Surveyor Rheumatology 04/16/24 documented as of this encounter
--- OUTSIDE RECORDS SUMMARY | 2025-01-15 15:48 | XMS_ITS | Encounter Summary ---
Author Organization [place] Address [address] [place] [address] Care Team Providers Care Kier Drier Name Role Phone Jairo Vasquez MD Primary Care Provider Kylee Dailey MD Unavailable + Kayode Ivey MD Unavailable [phone] Nicolasa Perez APRN COMPENSATION MANAGER Unavaila ble Srinivas Stern PA-C Unavailable [phone] Srinivas Stern-C Unavailable [phone] Bandar Casas [facility] Unavailable Bandar Casas [facility] Unavailable Ayana Zhang PA-C Unavailable [phone] Encounter Details Date Type Department Care Team (Late st Contact Info) Description 12/28/2024 [facility] Advice [facility] G[facility] [place] 707029 [facility] 4th [place] [address] Lilibeth Gamboa RN Social History Tobacco Use Types Packs/Day [...] on file 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 Gender Identity Not on file Sexual Orientation Not on file 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 Plan of Treatment Upcoming Encounters Date Type Department Care Team (Latest Contact Info) Description 02/13/2025 3:20 PM CDT Appointment [facility] Imaging [address] [facility] [address] [place] [address] Kayode Ivey MD [address] [place] [address] 387475 03/07/2025 3:00 PM CDT Ancillary Procedure [address] [place] [address] Srinivas Stern PA-C [address] [place] [address] 053055 04/24/2025 2:40 PM CDT Virtual Visit [facility] Gastroenterology Clinic [address]th [place] [phone] Alexis Torres MD 420 [place], [place] 299075 Srinivas Stern PA-C [address] [place] [address] 411575 06/05/2025 3:30 PM CDT Virtual Visit [facility] GI [facility] [address] [place] [address] 2nd [place] [phone] Kayode Ivey MD [address] [place] [address] 914495 Bandar Casas [facility] 420 [facility] 812 [place], [place] 724675 documented as of this encounter Visit Diagnoses Not on filedocumented in this encounter Additional Health Concerns Infection Onset Date Last Indicated Resolved Time MRSA-Contact Isolation Comment: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, chest, and elbow 02/17/2016 02/17/2016 Assessment Noted Time PHQ-9 Depression Total Score: 9 03/02/20 16 7:16 AM CDT documented as of this encounter Care Teams Kier Drier Relationship Specialty Start Date End Date Jairo Vasquez MD PCP - General Family Medicine - Sports Medicine 12/29/15 Kylee Dailey MD [address] [place] [address] 2A [place], [place] 444765 Internal Medicine 04/01/17 Kayode Ivey MD [address] [place] [address] 713245 Gastroenterology 04/01/17 Nicolasa Perez APRN COMPENSATION MANAGER [address] [place], [place] [address]CJ [place], [place] [address] Nurse Practitioner Nurse Practitioner 04/28/17 Srinivas Stern PA-C [address] [place] [address] Physician Hot Molder Physician Hot Molder 10/02/18 Srinivas Stern PA-C [address] [place] [address] Assigned Gastroenterology Provider 07/17/22 Bandar Casas RPH [address] [place] [address] 812 [place] [address] Pharmacist Pharmacist 08/18/23 Bandar aCsas RPH [address] [place] [address] Assigned MTM Pharmacist 08/27/23 Ayana Zhang PA-C [address] [place] [address] Physician Hot Molder Rheumatology 04/16/24 documented as of this encounter
--- OUTSIDE RECORDS SUMMARY | 2025-01-15 15:48 | XMS_ITS | Encounter Summary ---
Author Organization [facility] Address [address] [place] [address] Care Team Providers Care Water Treatment Operator Name Role Phone Jairo Vasquez MD Primary Care Provider [phone] Kylee Dailey MD Unavailable + Kayode Ivey MD Unavailable [phone] Nicolasa Perez APRN JEWEL SUPERVISOR Unavaila ble Srinivas SternC Unavailable [phone] PitSrinivas mcintosh PA-C Unavailable [phone] Sue Mckeon [facility] Unavailable [phone] Karen Trinh MD Unavailable [phone] Violet Ta [facility] Unavailable [phone] Violet Ta [facility] Unavailable [phone] PitSrinivas mcintosh PA-C Unavailable [phone] Bandar Casas [facility] Unavailable Bandar Casas [facility] Unavailable Ayana Zhang PA-C Unavailable [phone] PitSrinivas mcintosh PA-C Unavailable [phone] Encounter Details Date Type Department Care Team (Late st Contact Info) Description 06/12/2021 [facility] [address] [phone] Blanca Menezes, RN Social History Tobacco Use Types Packs/Day Years Used Date Smoking Tobacco: Never Smokeless Tobacco: Never Alcohol Use Standard Drinks/Week Comments Yes 13 (1 standard drink = 0.6 oz pu re alcohol) MONTHLY PHQ-2 Answer Date Recorded PHQ-2 Score 1 01/28/2021 Sex and Gender Information Value Date Recorded Sex Assigned at Not on file 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 No / Unsure 05/19/2021 9:46 AM CDT documented as of this encounter Plan of Treatment Upcoming Encounters Date Type Department Care Team (Latest Contact Info) Description 02/13/2025 3:20 PM CDT Appointment [facility] Imaging [address] [facility] [address] [place] [address] Kayode Ivey MD [address] [place], [place] [phone] 03/07/2025 3:00 PM CDT Ancillary Procedure [address] [place] [address] Srinivas Stern PA-C [address] [place] [address] 454705 04/24/2025 2:40 PM CDT Virtual Visit [facility] Gastroenterology Clinic [address] [phone] Alexis Torres MD 420 [place], [place] [phone] Srinivas Stern PA-C 909 [place], [place] [phone] 06/05/2025 3:30 PM CDT Virtual Visit Viola MADER[place] 909 [facility] 2nd [place] [phone] Kayode Ivey MD 516 [place] [address] Bandar Casas, [facility] 420 [facility] 812 [place] [address] documented as of this encounter Visit Diagnoses Not on filedocumented in this encounter Additional Health Concerns Infection Onset Date Last Indicated Resolved Time MRSA-Contact Isolation Comment: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, chest, and elbow 02/17/2016 02/17/2016 Rule Out C-difficile 10/04/2023 10/05/2023 024 7:28 PM SUPERVISING AIRPLANE PILOT C-difficile 10/05/2023 10/05/2023 11/04/2023 11:3 9 PM SUPERVISING AIRPLANE PILOT Rule Out C-difficile 09/03/2024 09/04/2024 025 12:45 PM SUPERVISING AIRPLANE PILOT Assessment Noted Time PHQ-9 Depression Total Score: 9 03/02/20 16 7:16 AM CDT documented as of this encounter Care Teams Water Treatment Operator Relationship Specialty Start Date End Date Jairo Vasquez MD PCP - General Family Medicine - Sports Medicine 12/29/15 Kylee Dailey MD [address] [place] [address] 687285 Internal Medicine 04/01/17 Kayode Ivey MD [address] [place] [address] Gastroenterology 04/01/17 Nicolasa Perez APRN CNP 9 [facility] [id number] [place] [address] Nurse Practitioner Nurse Practitioner 04/28/17 Srinivas Stern PA-C [address] [place] [address] 19784 Physician Explosive Operator Fuse Physician Explosive Operator Fuse 10/02/18 Srinivas Stern PA-C [address] [place] [address] 40980 Assigned Heart and Vascular Provider 11/19/20 06/27/21 Sue Mckeon [facility] [address] [place] [address] 46486 Pharmacist Pharmacist Tail Ripper 02/09/21 06/29/22 Karen Trinh MD [address] [place] [address] 89924 Assigned Infectious Disease Provider 02/08/21 07/30/22 Violet Ta [facility] [address] [place] [address] Assigned MTM Pharmacist 02/27/22 05/21/22 Violet Ta [facility] [address] [place] [address] Assigned MTM Pharmacist 06/02/22 07/09/22 Srinivas Stern PA-C 909 [place], [place] 865845 Assigned Gastroenterology Provider 07/17/22 Bandar Casas RPH [address] [phone] Pharmacist Pharmacist 08/18/23 Bandar Casas RPH [address] 189425 Assigned MTM Pharmacist 08/27/23 Ayana Zhang PA-C 5200 [place] [address] Physician Explosive Operator Fuse Rheumatology 04/16/24 Srinivas Stern PA-C 909 [place], [place] 926125 Home Infusion Following Provider Gastroenterology 07/11/24 10/05/24 documented as of this encounter
--- OUTSIDE RECORDS SUMMARY | 2025-01-15 15:48 | XMS_ITS | Encounter Summary ---
Author Organization [facility] Address [address] [place] [address]. [place] [address] Care Team Providers Care Manager Generation Name Role Phone Jairo Vasquez MD Primary Care Provider Kylee Dailey MD Unavailable + Kayode Ivey MD Unavailable [phone] Nicolasa Perez APRN SENIOR CLINICIAN Unavaila ble Srinivas Stern PA-C Unavailable [phone] Srinivas Stern-C Unavailable [phone] Bandar Casas [facility] Unavailable Bandar Casas [facility] Unavailable Ayana Zhang PA-C Unavailable Encounter Details Date Type Department Care Team (Late st Contact Info) Description 12/31/2024 [facility] Advice [facility]ology [facility] [place] [id number] [facility] 4th [place] [address] Mary Lou Abdullahi LPN Social History Tobacco Use Types Packs/Day Years [...] on file 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 Gender Identity Not on file Sexual Orientation Not on file 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 Plan of Treatment Upcoming Encounters Date Type Department Care Team (Latest Contact Info) Description 02/13/2025 3:20 PM CDT Appointment [facility] Imaging [address] [facility] [address] [place] [phone] Kayode Ivey MD [address] [place] [address] [phone] 03/07/2025 3:00 PM CDT Ancillary Procedure [address] [place] [address] Srinivas Stern PA-C [address] [place] [address] [phone] 04/24/2025 2:40 PM CDT Virtual Visit [facility] [address] 4th [place] [phone] Alexis Torres MD 420 [place], [place] [phone] Srinivas Stern PA-C [address] [place] [address] [phone] 06/05/2025 3:30 PM CDT Virtual Visit [facility] GI [facility] [address] [place] [address] 2nd [place] [phone] Kayode Ivey MD [address] [place] [address] 729255 Bandar Casas [facility] 420 [facility] 812 [place], [place] 792455 documented as of this encounter Visit Diagnoses Not on filedocumented in this encounter Additional Health Concerns Infection Onset Date Last Indicated Resolved Time MRSA-Contact Isolation Comment: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, chest, and elbow 02/17/2016 02/17/2016 Assessment Noted Time PHQ-9 Depression Total Score: 9 03/02/20 16 7:16 AM CDT documented as of this encounter Care Teams Manager Generation Relationship Specialty Start Date End Date Jairo Vasquez MD PCP - General Family Medicine - Sports Medicine 12/29/15 Kylee Dailey MD [address] [place] [address] [address] [place], [place] 202225 Internal Medicine 04/01/17 Kayode Ivey MD [address] [place] [address] 118195 Gastroenterology 04/01/17 Nicolasa Perez APRN SENIOR CLINICIAN [address] [place], [place] [address]CJ [place], [place] [address] Nurse Practitioner Nurse Practitioner 04/28/17 Srinivas Stern PA-C [address] [place] [address] 12884 Physician Buggy Driver Physician Buggy Driver 10/02/18 Srinivas Stern PA-C [address] [place] [address] 81166 Assigned Gastroenterology Provider 07/17/22 Bandar Casas RPH [address] [place] [address] 812 [place] [address] Pharmacist Pharmacist 08/18/23 Bandar Casas RPH [address] [place] [address] Assigned MTM Pharmacist 08/27/23 Ayana Zhang PA-C [address] [place] [address] 24681 Physician Buggy Driver Rheumatology 04/16/24 documented as of this encounter
--- OUTSIDE RECORDS SUMMARY | 2025-01-15 15:48 | XMS_ITS | Encounter Summary ---
Author Organization [facility] Address [address] [place] [address]. [place] [address] Care Team Providers Care Proofsheet Corrector Name Role Phone Jairo Vasquez MD Primary Care Provider Kylee Dailey MD Unavailable + Kayode Ivey MD Unavailable Nicolasa Perez APRN SCRIPT DEVELOPER Unavaila ble Srinivas Stern PA-C Unavailable Srinivas Stern-C Unavailable Bandar Casas [facility] Unavailable Bandar Casas [facility] Unavailable [phone] Ayana Zhang PA-C Unavailable [phone] Encounter Details Date Type Department Care Team (Late st Contact Info) Description 11/25/2024 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 Plan of Treatment Upcoming Encounters Date Type Department Care Team (Latest Contact Info) Description 02/13/2025 3:20 PM CDT Appointment [facility] Imaging [address] [facility] [address] [place] [phone] Kayode Ivey MD [address] [place] [address] 03/07/2025 3:00 PM CDT Ancillary Procedure [address] [place] [address] Srinivas Stern PA-C [address] [place] [address] [phone] 04/24/2025 2:40 PM CDT Virtual Visit [facility] Gastroenterology Clinic [address] [phone] Alexis Torres MD 420 [place], [place] 394095 Srinivas Stern PA-C [address] [place] [address] 738565 06/05/2025 3:30 PM CDT Virtual Visit [facility] GI [address] [phone] Kayode Ivey MD [address] [place] [address] 825925 Bandar Casas, [facility] 420 [facility] 812 [place] [address] documented as of this encounter Visit Diagnoses Not on filedocumented in this encounter Additional Health Concerns Infection Onset Date Last Indicated Resolved Time MRSA-Contact Isolation Comment: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, chest, and elbow 02/17/2016 02/17/2016 Assessment Noted Time PHQ-9 Depression Total Score: 9 03/02/20 16 7:16 AM CDT documented as of this encounter Care Teams Proofsheet Corrector Relationship Specialty Start Date End Date Jairo Vasquez MD PCP - General Family Medicine - Sports Medicine 12/29/15 Kylee Dailey MD 6 [facility] [place], [place] 602845 Internal Medicine 04/01/17 Kayode Ivey MD [address] [place] [address] 658015 Gastroenterology 04/01/17 Nicolasa Perez APRN SCRIPT DEVELOPER [address] [place] [address] [id number] [place], [place] 357645 Nurse Practitioner Nurse Practitioner 04/28/17 Srinivas Stern PA-C [address] [place] [address] 249185 Physician Asset Administrator Physician Asset Administrator 10/02/18 Srinivas Stern PA-C [address] [place] [address] 715275 Assigned Gastroenterology Provider 07/17/22 Bandar Casas R[facility] [address] [place] 26[address] [place], [place] 197535 Pharmacist Pharmacist 08/18/23 Bandar Casas RPH [address] [place] 260022 [place], [place] 661845 Assigned MTM Pharmacist 08/27/23 Ayana Zhang PA-C 5200 [place] [address] Physician Asset Administrator Rheumatology 04/16/24 documented as of this encounter
--- OUTSIDE RECORDS SUMMARY | 2025-01-15 15:49 | XMS_ITS | Encounter Summary ---
Author Organization [facility] Address [address] [place] [address] Care Team Providers Care Desk Lieutenant Name Role Phone Jairo Vasquez MD Primary Care Provider Kylee Dailey MD Unavailable + Kayode Ivey MD Unavailable [phone] Nicolasa Perez APRN TOWNSHIP SUPERVISOR Unavaila ble Srinivas Stern PA-C Unavailable Srinivas Stern PA-C Unavailable [phone] Bandar Casas [facility] Unavailable Bandar Casas [facility] Unavailable Ayana Zhang PA-C Unavailable Srinivas Stern PA-C Unavailable Encounter Details Date Type Department Care Team (Late st Contact Info) Description 08/12/2024 [facility] [address] [place] [address] Srinivas Stern PA-C 909 [place] [address] Social History Tobacco Use Types [...] on file 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 Imaging [address] [facility] [address] [place] [address] Kayode Ivey MD [address] [place] [address] 03/07/2025 3:00 PM CDT Ancillary Procedure [address] [place] [address] Srinivas Stern PA-C [address] [place] [address] 04/24/2025 2:40 PM CDT Virtual Visit [facility] Gastroenterology Clinic [address] [place] [address] Alexis Torres MD 420 [place], [place] [phone] Srinivas Stern PA-C [address] [place] [address] 06/05/2025 3:30 PM CDT Virtual Visit [facility] GI [address] [phone] Kayode Ivey MD [address] [place] [address] Bandar Casas, RPH 420 [facility] 812 [place] [address] documented as of this encounter Visit Diagnoses Not on filedocumented in this encounter Additional Health Concerns Infection Onset Date Last Indicated Resolved Time MRSA-Contact Isolation Comment: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, chest, and elbow 02/17/2016 02/17/2016 Rule Out C-difficile 09/03/2024 09/04/2024 025 12:45 PM ASSISTANT CITY ATTORNEY Assessment Noted Time PHQ-9 Depression Total Score: 9 03/02/20 16 7:16 AM CDT documented as of this encounter Care Teams Desk Lieutenant Relationship Specialty Start Date End Date Jairo Vasquez MD PCP - General Family Medicine - Sports Medicine 12/29/15 Kylee Dailey MD 6 [facility] 2A [place] [address] Internal Medicine 04/01/17 Kayode Ivey MD 6 [place] [address] Gastroenterology 04/01/17 Nicolasa Perez APRN TOWNSHIP SUPERVISOR [address] [place] [address]J [place] [address] Nurse Practitioner Nurse Practitioner 04/28/17 Srinivas Stern PA-C [address] [place] [address]36 Physician Air Traffic Control Specialist Center Physician Air Traffic Control Specialist Center 10/02/18 Srinivas Stern PA-C 909 [place] [address] Assigned Gastroenterology Provider 07/17/22 Bandar Casas RPH [address] 908655 Pharmacist Pharmacist 08/18/23 Bandar Casas RPH [address] 612085 Assigned MTM Pharmacist 08/27/23 Ayana Zhang PA-C 5200 [place] [address] Physician Air Traffic Control Specialist Center Rheumatology 04/16/24 Srinivas Stern PA-C 909 [place] [address] Home Infusion Following Provider Gastroenterology 07/11/24 10/05/24 documented as of this encounter
--- OUTSIDE RECORDS SUMMARY | 2025-01-15 15:49 | XMS_ITS | Encounter Summary ---
Author Organization [facility] Address [address] [place] [address] Care Team Providers Care Commercial Insulator Name Role Phone Jairo Vasquez MD Primary Care Provider [phone] Kylee Dailey MD Unavailable + Kayode Ivey MD Unavailable [phone] Nicolasa Perez APRN INTELLIGENCE CONSULTANT Unavaila ble Loyda Dickey RN Unavailable [phone] Srinivas Stern PA-C Unavailable [phone] Srinivas Stern PA-C Unavailable +[phone] Violet Ta [facility] Unavailable [phone] Sue Mckeon [facility] Unavailable [phone] Karen Trinh MD Unavailable +[phone] Violet Ta [facility] Unavailable [phone] Violet Ta [facility] Unavailable [phone] Srinivas Stern PA-C Unavailable +[phone] Bandar Casas [facility] Unavailable [phone] Bandar Casas [facility] Unavailable Ayana Zhang PA-C Unavailable [phone] Srinivas Stern PA-C Unavailable Encounter Details Date Type Department Care Team (Late st Contact Info) Description 01/17/2019 [facility] Medical Advice 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 Plan of Treatment Upcoming Encounters Date Type Department Care Team (Latest Contact Info) Description 02/13/2025 3:20 PM CDT Appointment [facility] Imaging [address] [facility] [address] [place] [address] Kayode Ivey MD 516 [place] [address] 03/07/2025 3:00 PM CDT Ancillary Procedure [address] [place] [address] Srinivas Stern PA-C [address] [place] [address] 04/24/2025 2:40 PM CDT Virtual Visit [facility] Gastroenterology Clinic [address] [address] Alexis Torres MD 420 [place], [place] [phone] Srinivas Stern PA-C [address] [place] [address] 06/05/2025 3:30 PM CDT Virtual Visit [facility] 909 [facility] [address] 2nd [place] [address] Kayode Ivey MD 516 [place], [place] 929965 Bandar Casas, [facility] 420 [facility] 812 [place], [place] 216285 documented as of this encounter Visit Diagnoses Not on filedocumented in this encounter Additional Health Concerns Infection Onset Date Last Indicated Resolved Time MRSA-Contact Isolation Comment: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, chest, and elbow 02/17/2016 02/17/2016 Rule Out C-difficile 10/04/2023 10/05/2023 024 7:28 PM MEDICAL CARE EVALUATION SPECIALIST C-difficile 10/05/2023 10/05/2023 11/04/2023 11:3 9 PM MEDICAL CARE EVALUATION SPECIALIST Rule Out C-difficile 09/03/2024 09/04/2024 025 12:45 PM MEDICAL CARE EVALUATION SPECIALIST Assessment Noted Time PHQ-9 Depression Total Score: 9 03/02/20 16 7:16 AM CDT documented as of this encounter Care Teams Commercial Insulator Relationship Specialty Start Date End Date Jairo Vasquez MD PCP - General Family Medicine - Sports Medicine 12/29/15 Kylee Dailey MD [address] [place] [address] [address] [place], [place] 584325 Internal Medicine 04/01/17 Kayode Ivey MD [address] [place] [address] 747525 Gastroenterology 04/01/17 Nicolasa Perez APRN INTELLIGENCE CONSULTANT [address] [place] [address] [id number] [place] [address] Nurse Practitioner Nurse Practitioner 04/28/17 Loyda Dickey, RN Nurse Coordinator Neurology 05/26/17 02/26/19 Srinivas Stern PA-C [address] [place] [address] Physician Manager Of Planning Physician Manager Of Planning 10/02/18 Srinivas Stern PA-C [address] [place] [address] 49682 Assigned Heart and Vascular Provider 11/19/20 06/27/21 [facility] [address] [place] [address] 24[address] Pharmacist Pharmacist 12/29/20 02/08/21 Sue Mckeon [facility] [address] [place] [address] 81293 Pharmacist Pharmacist Retail Customer Service Representative 02/09/21 06/29/22 Karen Trinh MD [address] [place] [address] 75066 Assigned Infectious Disease Provider 02/08/21 07/30/22 Violet Ta, [facility] [address] [place] [address] [address] [place] [address] Assigned MTM Pharmacist 02/27/22 05/21/22 Violet Ta [facility] 480 [facility] [address] [place] [address] Assigned MTM Pharmacist 06/02/22 07/09/22 Srinivas Stern PA-C 909 [place] [address] Assigned Gastroenterology Provider 07/17/22 Bandar Casas [facility] [address] 915125 Pharmacist Pharmacist 08/18/23 Bandar Casas [facility] [address] [place] [address] Assigned MTM Pharmacist 08/27/23 yAana Zhang PA-C 5[address] [place] [address] Physician Manager Of Planning Rheumatology 04/16/24 Srinivas Stern PA-C 909 [place] [address] Home Infusion Following Provider Gastroenterology 07/11/24 10/05/24 documented as of this encounter
--- OUTSIDE RECORDS SUMMARY | 2025-01-15 15:49 | XMS_ITS | Encounter Summary ---
Author Organization [place] Address [address] [place] [address] Care Team Providers Care Platform Worker Name Role Phone Jairo Vasquez MD Primary Care Provider [phone] Kylee Daliey MD Unavailable + Kayode Ivey MD Unavailable [phone] Nicolasa Perez APRN SCHOOL VOCATIONAL EDUCATOR Unavaila ble Loyda Dickey RN Unavailable [phone] Srinivas Stern PA-C Unavailable +[phone] Srinivas Stern PA-C Unavailable +[phone] [facility] Unavailable +[phone] Sue Mckeon [facility] Unavailable +[phone] Karen Trinh MD Unavailable +[phone] Violet Ta [facility] Unavailable +[phone] [facility] Unavailable +[phone] Srinivas Stern PA-C Unavailable +[phone] Bandar Casas [facility] Unavailable +[phone] Bandar Casas [facility] Unavailable Ayana Zhang PA-C Unavailable [phone] Srinivas Stern PA-C Unavailable Encounter Details Date Type Department Care Team (Late st Contact Info) Description 01/13/2019 MyC Medical Advice [facility] Gastroenterology and IBD Clinic [address] [place] [address] Kayode Ivey MD 6 [place] [address] Social History Tobacco Use Types Packs/Day Years Used Date Smoking Tobacco: Never Smokeless Tobacco: Never Alcohol Use Standard Drinks/Week Comments Yes 13 (1 standard drink = 0.6 oz pu re alcohol) MONTHLY Sex and Gender Information Value Date Recorded Sex Assigned at Not on file Legal Sex 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 TRANSCRIBING MACHINE OPERATOR Gender Identity Not on file Sexual Orientation Not on file 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 Center Imaging [address] [facility] [address] [place] [phone] Kayode Ivey MD 6 [place] [address] 03/07/2025 3:00 PM CDT Ancillary Procedure [address] [place] [address] Srinivas Stern PA-C 9 [place], [place] 592285 04/24/2025 2:40 PM CDT Virtual Visit [facility] Gastroenterology Clinic [address] [address] Alexis Torres MD 420 [place] [address] Srinivas Stern PA-C 909 [place], [place] [phone] 06/05/2025 3:30 PM CDT Virtual Visit Viola [facility] 909 [facility] 2nd [place] [phone] Kayode Ivey MD [address] [place] [address] Bandar Casas, [facility] 420 [facility] 812 [place] [address] documented as of this encounter Visit Diagnoses Not on filedocumented in this encounter Additional Health Concerns Infection Onset Date Last Indicated Resolved Time MRSA-Contact Isolation Comment: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, chest, and elbow 02/17/2016 02/17/2016 Rule Out C-difficile 10/04/2023 10/05/2023 024 7:28 PM TRANSCRIBING MACHINE OPERATOR C-difficile 10/05/2023 10/05/2023 11/04/2023 11:3 9 PM TRANSCRIBING MACHINE OPERATOR Rule Out C-difficile 09/03/2024 09/04/2024 025 12:45 PM TRANSCRIBING MACHINE OPERATOR Assessment Noted Time PHQ-9 Depression Total Score: 9 03/02/20 16 7:16 AM CDT documented as of this encounter Care Teams Platform Worker Relationship Specialty Start Date End Date Jairo Vasquez MD PCP - General Family Medicine - Sports Medicine 12/29/15 Kylee Dailey MD [address] [place] [address] 2A [place], [place] [phone] Internal Medicine 04/01/17 Kayode Ivey MD [address] [place] [address] Gastroenterology 04/01/17 Nicolasa Perez APRN SCHOOL VOCATIONAL EDUCATOR [address] [place] [address] [id number] [place], [place] 714605 Nurse Practitioner Nurse Practitioner 04/28/17 Loyda Dickey RN Nurse Coordinator Neurology 05/26/17 02/26/19 Srinivas Stern PA-C [address] [place] [address] Physician Parachute Crown Sewer Physician Parachute Crown Sewer 10/02/18 Srinivas Stern PA-C [address] [place] [address] Assigned Heart and Vascular Provider 11/19/20 06/27/21 Violet [address] [facility] [address] [place] [address] Pharmacist Pharmacist 12/29/20 02/08/21 Sue Mcke[address] [facility] [address] [place] [address] 130285 Pharmacist Pharmacist Membership Manager 02/09/21 06/29/22 Karen Trinh MD [address] [place] [address] [phone] Assigned Infectious Disease Provider 02/08/21 07/30/22 Violet Ta [facility] [address] [place] [address] 96 [place], [place] [phone] Assigned MTM Pharmacist 02/27/22 05/21/22 Violet Ta [facility] 480 [facility] [address] [place] [address] Assigned MTM Pharmacist 06/02/22 07/09/22 Srinivas Stern PA-C [address] [place] [address] Assigned Gastroenterology Provider 07/17/22 Bandar Casas RPH 420 [facility] 812 [place] [address] Pharmacist Pharmacist 08/18/23 Bandar Casas RP [address] [address] Assigned MTM Pharmacist 08/27/23 Ayana Zhang PA-C [address] [place] [address] Physician Parachute Crown Sewer Rheumatology 04/16/24 Srinivas Stern PA-C 909 [place] [address] Home Infusion Following Provider Gastroenterology 07/11/24 10/05/24 documented as of this encounter
--- OUTSIDE RECORDS SUMMARY | 2025-01-15 15:49 | XMS_ITS | Encounter Summary ---
Author Organization [place] Address [address] [place] [address] Care Team Providers Care Silk Winding Machine Operator Name Role Phone Jairo Vasquez MD Primary Care Provider [phone] Kylee Dailey MD Unavailable + Kayode Ivey MD Unavailable [phone] Nicolasa Perez APRN GLASS OR MIRROR INSPECTOR Unavaila ble Srinivas Stern PA-C Unavailable [phone] Sue Mckeon [facility] Unavailable [phone] Karen Trinh MD Unavailable [phone] Violet Ta [facility] Unavailable Violet Ta [facility] Unavailable Srinivas Stern PA-C Unavailable [phone] Bandar Casas [facility] Unavailable Bandar Casas [facility] Unavailable Ayana Zhang PA-C Unavailable Srinivas Stern PA-C Unavailable [phone] Encounter Details Date Type Department Care Team (Late st Contact Info) Description 05/19/2022 [facility] Specialty [address] [address] Sue Mckeon, [facility] 909 [place] [address] Social History Tobacco Use Types Packs/Day Years Used Date Smoking Tobacco: Never Smokeless Tobacco: Never Alcohol Use Standard Drinks/Week Comments Yes 13 (1 standard drink = 0.6 oz pu re alcohol) MONTHLY PHQ-2 Answer Date Recorded PHQ-2 Score 0 01/19/2022 Sex and Gender Information Value Date Recorded Sex Assigned at Not on file Legal Sex 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 ENTRY LEVEL DRAFTER Gender Identity Not on file Sexual Orientation Not on file 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 No / Unsure 05/18/2022 1:13 PM CDT documented as of this encounter Plan of Treatment Upcoming Encounters Date Type Department Care Team (Latest Contact Info) Description 02/13/2025 3:20 PM CDT Appointment [facility] [place] [facility] [address] [facility] [address] [place] [address] Kayode Ivey MD 516 [place] [address] 03/07/2025 3:00 PM CDT Ancillary Procedure [facility] [address] [facility] [address] [place] [address] Srinivas Stern PA-C [address] [place] [address] 638485 04/24/2025 2:40 PM CDT Virtual Visit [facility] Gastroenterology Clinic [address] 4th [place] [phone] Alexis Torres MD 420 [place] [address] Srinivas Stern PA-C 909 [place] [address] 06/05/2025 3:30 PM CDT Virtual Visit [facility] 909 [facility] 2nd [place] [address] Kayode Ivey MD 6 [place] [address] Bandar Casas, [facility] 420 [facility] 812 [place] [address] documented as of this encounter Visit Diagnoses Not on filedocumented in this encounter Additional Health Concerns Infection Onset Date Last Indicated Resolved Time MRSA-Contact Isolation Comment: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, chest, and elbow 02/17/2016 02/17/2016 Rule Out C-difficile 10/04/2023 10/05/2023 024 7:28 PM ENTRY LEVEL DRAFTER C-difficile 10/05/2023 10/05/2023 11/04/2023 11:3 9 PM ENTRY LEVEL DRAFTER Rule Out C-difficile 09/03/2024 09/04/2024 025 12:45 PM ENTRY LEVEL DRAFTER Assessment Noted Time PHQ-9 Depression Total Score: 9 03/02/20 16 7:16 AM CDT documented as of this encounter Care Teams Silk Winding Machine Operator Relationship Specialty Start Date End Date Jairo Vasquez MD PCP - General Family Medicine - Sports Medicine 12/29/15 Kylee Dailey MD [address] [place] [address] [phone] Internal Medicine 04/01/17 Kayode Ivey MD [address] [place] [address] 26 Gastroenterology 04/01/17 Nicolasa Perez APRN CNP [address] [place] [address] [id number] [place] [address] Nurse Practitioner Nurse Practitioner 04/28/17 Srinivas Stern PA-C [address] [place] [address] Physician Supervisor Inspection And Testing Physician Supervisor Inspection And Testing 10/02/18 Sue Mckeon [facility] [address] [place] [address] Pharmacist Pharmacist Package Winder 02/09/21 06/29/22 Karen Trinh MD [address] [place] [address] Assigned Infectious Disease Provider 02/08/21 07/30/22 Violet Ta, [facility] [address] [place] [address] Assigned MTM Pharmacist 02/27/22 05/21/22 [facility] [address] [place] [address] Assigned MTM Pharmacist 06/02/22 07/09/22 Srinivas Stern PA-C [address] [place] [address] Assigned Gastroenterology Provider 07/17/22 Bandar Casas [facility] 420 [facility] 812 [place] [address] Pharmacist Pharmacist 08/18/23 Bandar Casas [facility] 420 [facility] 812 [place] [address] Assigned MTM Pharmacist 08/27/23 Ayana Zhang PA-C 5[address] [place] [address] Physician Supervisor Inspection And Testing Rheumatology 04/16/24 Srinivas Stern PA-C 909 [place] [address] Home Infusion Following Provider Gastroenterology 07/11/24 10/05/24 documented as of this encounter
--- OUTSIDE RECORDS SUMMARY | 2025-01-15 15:49 | XMS_ITS | Encounter Summary ---
Author Organization [place] Address [address] [place] [address] Care Team Providers Care Well Driller Name Role Phone Jairo Vasquez MD Primary Care Provider [phone] Kylee Dailey MD Unavailable + Kayode Ivey MD Unavailable [phone] Nicolasa Perez APRN IRON MINER BLASTING Unavaila ble Loyda Dickey RN Unavailable [phone] Srinivas Stern PA-C Unavailable [phone] Srinivas Stern PA-C Unavailable +[phone] Violet Ta [facility] Unavailable [phone] Sue Mckeon [facility] Unavailable [phone] Karen Trinh MD Unavailable +[phone] Violet Ta [facility] Unavailable [phone] Violet Ta [facility] Unavailable +[phone] Srinivas Stern PA-C Unavailable +[phone] Bandar Casas [facility] Unavailable [phone] Bandar Casas [facility] Unavailable Ayana Zhang PA-C Unavailable [phone] Srinivas Stern PA-C Unavailable [phone] Encounter Details Date Type Department Care Team (Late st Contact Info) Description 03/01/2018 MyC Medical Advice [facility] Gastroenterology and IBD Clinic [address] [place] [address] Blanca Menezes, RN Social History Tobacco Use Types Packs/Day Years Used Date Smoking Tobacco: Never Smokeless Tobacco: Never Alcohol Use Standard Drinks/Week Comments Yes 13 (1 standard drink = 0.6 oz pu re alcohol) MONTHLY Sex and Gender Information Value Date Recorded Sex Assigned at Not on file Legal Sex 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 GLASSWARE SELECTOR Gender Identity Not on file Sexual Orientation Not on file 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 Plan of Treatment Upcoming Encounters Date Type Department Care Team (Latest Contact Info) Description 02/13/2025 3:20 PM CDT Appointment [facility] Imaging [address] [facility] [address] [place] [phone] Kayode Ivey MD 516 [place] [address] 03/07/2025 3:00 PM CDT Ancillary Procedure [address] [place] [address] Srinivas Stern PA-C [address] [place] [address] 04/24/2025 2:40 PM CDT Virtual Visit [facility] Gastroenterology Clinic [address] [address] Alexis Torres MD 420 [place], [place] [phone] Srinivas Stern PA-C [address] [place] [address] 06/05/2025 3:30 PM CDT Virtual Visit [facility]TM 9[address] [facility] [address] 2nd [place] [address] Kayode Ivey MD 516 [place], [place] 478595 Bandar Casas, [facility] 420 [facility] 812 [place], [place] 644405 documented as of this encounter Visit Diagnoses Not on filedocumented in this encounter Additional Health Concerns Infection Onset Date Last Indicated Resolved Time MRSA-Contact Isolation Comment: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, chest, and elbow 02/17/2016 02/17/2016 Rule Out C-difficile 10/04/2023 10/05/2023 024 7:28 PM GLASSWARE SELECTOR C-difficile 10/05/2023 10/05/2023 11/04/2023 11:3 9 PM GLASSWARE SELECTOR Rule Out C-difficile 09/03/2024 09/04/2024 025 12:45 PM GLASSWARE SELECTOR Assessment Noted Time PHQ-9 Depression Total Score: 9 03/02/20 16 7:16 AM CDT documented as of this encounter Care Teams Well Driller Relationship Specialty Start Date End Date Jairo Vasquez MD PCP - General Family Medicine - Sports Medicine 12/29/15 Kylee Dailey MD [address] [place] [address] [address] [place], [place] [phone] Internal Medicine 04/01/17 Kayode Ivey MD [address] [place] [address] 368035 Gastroenterology 04/01/17 Nicolasa Perez APRN IRON MINER BLASTING [address] [place] [address] [id number] [place] [address] Nurse Practitioner Nurse Practitioner 04/28/17 Loyda Dickey, RN Nurse Coordinator Neurology 05/26/17 02/26/19 Srinivas Stern PA-C [address] [place] [address] Physician Science Faculty Member Physician Science Faculty Member 10/02/18 Srinivas Stern PA-C [address] [place] [address] Assigned Heart and Vascular Provider 11/19/20 06/27/21 [facility] [address] [place] [address] Pharmacist Pharmacist 12/29/20 02/08/21 Sue Mckeon [facility] [address] [place] [address] Pharmacist Pharmacist Waxing Machine Operator 02/09/21 06/29/22 Karen Trinh MD [address] [place] [address] Assigned Infectious Disease Provider 02/08/21 07/30/22 Violet Ta, [facility] [address] [place] [address] [address] [place] [address] Assigned MTM Pharmacist 02/27/22 05/21/22 Violet Ta [facility] 480 [facility] [address] [place] [address] Assigned MTM Pharmacist 06/02/22 07/09/22 Srinivas Stern PA-C 909 [place] [address] Assigned Gastroenterology Provider 07/17/22 Bandar Casas [facility] [address] [id number] Pharmacist Pharmacist 08/18/23 Bandar Casas [facility] [address] [place] [address] Assigned MTM Pharmacist 08/27/23 Ayana Zhang PA-C 5200 [place] [address] Physician Science Faculty Member Rheumatology 04/16/24 Srinivas Stern PA-C 909 [place] [address] Home Infusion Following Provider Gastroenterology 07/11/24 10/05/24 documented as of this encounter
--- OUTSIDE RECORDS SUMMARY | 2025-01-15 15:49 | XMS_ITS | Encounter Summary ---
Author Organization [place] Address [address] [place] [address] Care Team Providers Care Armature Winder Repair Helper Name Role Phone Jairo Vasquez MD Primary Care Provider [phone] Kylee Dailey MD Unavailable + Kayode Ivey MD Unavailable [phone] Nicolasa Perez APRN LAMINATED PLASTICS ASSEMBLER AND GLUER Unavaila ble Loyda Dickey RN Unavailable +[phone] Srinivas Stern PA-C Unavailable [phone] Srinivas Stern PA-C Unavailable +[phone] Violet Ta [facility] Unavailable +[phone] Sue Mckeon [facility] Unavailable +[phone] Karen Trinh MD Unavailable +[phone] Violet Ta [facility] Unavailable +[phone] Violet Ta [facility] Unavailable +[phone] Srinivas Stern PA-C Unavailable +[phone] Bandar Casas [facility] Unavailable +[phone] Bandar Casas [facility] Unavailable Ayana Zhang PA-C Unavailable [phone] Srinivas Stern PA-C Unavailable [phone] Encounter Details Date Type Department Care Team (Late st Contact Info) Description 01/17/2019 MyC Medical Advice [facility] [address] [place] [address] Kayode Ivey MD 6 [place] [address] Social History Tobacco Use Types Packs/Day Years Used Date Smoking Tobacco: Never Smokeless Tobacco: Never Alcohol Use Standard Drinks/Week Comments Yes 13 (1 standard drink = 0.6 oz pu re alcohol) MONTHLY Sex and Gender Information Value Date Recorded Sex Assigned at Not on file Legal Sex 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 HOSPITAL MEDICAL BILLER Gender Identity Not on file Sexual Orientation Not on file 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 Plan of Treatment Upcoming Encounters Date Type Department Care Team (Latest Contact Info) Description 02/13/2025 3:20 PM CDT Appointment [facility] Center Imaging [address] [facility] [address] [place] [phone] Kayode Ivey MD 6 [place] [address] 03/07/2025 3:00 PM CDT Ancillary Procedure [address] [place] [address] Srinivas Stern PA-C 9 [place], [place] 622585 04/24/2025 2:40 PM CDT Virtual Visit [facility] Gastroenterology Clinic [address] [address] Alexis Torres MD 420 [place] [address] Srinivas Stern PA-C 909 [place], [place] [phone] 06/05/2025 3:30 PM CDT Virtual Visit Viola [facility] 909 [facility] 2nd [place] [phone] Kayode Ivey MD 516 [place] [address] Bandar Casas, [facility] 420 [facility] 812 [place] [address] documented as of this encounter Visit Diagnoses Not on filedocumented in this encounter Additional Health Concerns Infection Onset Date Last Indicated Resolved Time MRSA-Contact Isolation Comment: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, chest, and elbow 02/17/2016 02/17/2016 Rule Out C-difficile 10/04/2023 10/05/2023 024 7:28 PM HOSPITAL MEDICAL BILLER C-difficile 10/05/2023 10/05/2023 11/04/2023 11:3 9 PM HOSPITAL MEDICAL BILLER Rule Out C-difficile 09/03/2024 09/04/2024 025 12:45 PM HOSPITAL MEDICAL BILLER Assessment Noted Time PHQ-9 Depression Total Score: 9 03/02/20 16 7:16 AM CDT documented as of this encounter Care Teams Armature Winder Repair Helper Relationship Specialty Start Date End Date Jairo Vasquez MD PCP - General Family Medicine - Sports Medicine 12/29/15 Kylee Dailey MD [address] [place] [address] 2A [place], [place] [phone] Internal Medicine 04/01/17 Kayode Ivey MD [address] [place] [address] Gastroenterology 04/01/17 Nicolasa Perez APRN LAMINATED PLASTICS ASSEMBLER AND GLUER [address] [place] [address] [id number] [place], [place] 181035 Nurse Practitioner Nurse Practitioner 04/28/17 Loyda Dickey RN Nurse Coordinator Neurology 05/26/17 02/26/19 Srinivas Stern PA-C [address] [place] [address] Physician Senior Controls Analyst Physician Senior Controls Analyst 10/02/18 Srinivas Stern PA-C [address] [place] [address] Assigned Heart and Vascular Provider 11/19/20 06/27/21 Violet Ta [facility] [address] [place] [address] Pharmacist Pharmacist 12/29/20 02/08/21 Sue Mckeon [facility] [address] [place] [address] 534995 Pharmacist Pharmacist Equipment Service Lead 02/09/21 06/29/22 Karen Trinh MD [address] [place] [address] [phone] Assigned Infectious Disease Provider 02/08/21 07/30/22 Violet Ta [facility] [address] [place] [address] 96 [place], [place] [phone] Assigned MTM Pharmacist 02/27/22 05/21/22 Violet Ta [facility] 480 [facility] [address] [place] [address] Assigned MTM Pharmacist 06/02/22 07/09/22 Srinivas Stern PA-C [address] [place] [address] Assigned Gastroenterology Provider 07/17/22 Bandar Casas [facility] 420 [facility] 812 [place] [address] Pharmacist Pharmacist 08/18/23 Bandar Casas RP [address] [address] Assigned MTM Pharmacist 08/27/23 Ayana Zhang PA-C [address] [place] [address] Physician Senior Controls Analyst Rheumatology 04/16/24 Srinivas Stern PA-C 909 [place] [address] Home Infusion Following Provider Gastroenterology 07/11/24 10/05/24 documented as of this encounter
--- OUTSIDE RECORDS SUMMARY | 2025-01-15 15:49 | XMS_ITS | Encounter Summary ---
Author Organization [place] Address [address] [place] [address]90 Care Team Providers Care Cathead Worker Name Role Phone Jairo Vasquez MD Primary Care Provider [phone] Kylee Dailey MD Unavailable + Kayode Ivey MD Unavailable [phone] Nicolasa Perez APRN LEARNING MANAGER Unavaila ble Srinivas SternC Unavailable [phone] PitSrinivas mcintosh PA-C Unavailable +[phone] Sue Mckeon [facility] Unavailable [phone] Karen Trinh MD Unavailable [phone] Violet Ta [facility] Unavailable [phone] Violet Ta [facility] Unavailable [phone] PitSrinivas mcintosh PA-C Unavailable +[phone] Bandar Casas [facility] Unavailable Bandar Casas [facility] Unavailable +[phone] Ayana ZhangC Unavailable PitSrinivas mcintosh PA-C Unavailable +[phone] Encounter Details Date Type Department Care Team (Latest Contact Info) Description 03/17/2021 [facility] [address] 4th [place] [phone] Kayode Ivey MD [address] [place] [address]38 Ulcerative pancolitis with rectal bleeding (H) (Primary Dx) Social History Tobacco Use Types Packs/Day Years Used Date Smoking Tobacco: Never Smokeless Tobacco: Never Alcohol Use Standard Drinks/Week Comments Yes 13 (1 standard drink = 0.6 oz pu re alcohol) MONTHLY PHQ-2 Answer Date Recorded PHQ-2 Score 1 01/28/2021 Sex and Gender Information Value Date Recorded Sex Assigned at Not on file Legal Sex 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 STAFF NURSE MIDWIFE Gender Identity Not on file Sexual Orientation Not on file 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 Concerns of out of network Last infusion was January 29 Scheduled for next infusion on March 27 Cervical fusion surgery on April 21 Will discontinue Remicade therapy plan Start Entocort due to symptoms of loose stools of 5 a day for the last 4 weeks and urgency Plan Colonoscopy with Dr. Ivey Follow up with Dr. Ivey with a clinic appt after colonoscopy Start Entocort /prescription sent documented in this encounter Plan of Treatment Upcoming Encounters Date Type Department Care Team (Latest Contact Info) Description 02/13/2025 3:[address] [facility] [address] [facility] [address] [place] [phone] Kayode Ivey MD [address] [place] [address] 03/07/2025 3:00 PM CDT Ancillary Procedure [facility] [address] [facility] [address] [place] [address] Srinivas Stern PA-C 909 [place], [place] 146645 04/24/2025 2:40 PM CDT Virtual Visit [facility] [place] [address] [facility] 4th [place] [phone] Alexis Torres MD 420 [place], [place] 617315 Srinivas Stern PA-C 909 [place], [place] 269205 06/05/2025 3:30 PM CDT Virtual Visit [facility] [place] [address] [facility] 2nd [place] [address] Kayode Ivey MD 516 [place], [place] 853225 Bandar Casas RPH 420 [facility] 812 [place], [place] 867265 documented as of this encounter Visit Diagnoses Diagnosis Ulcerative pancolitis with rectal bleeding (H)- Primary documented in this encounter Additional Health Concerns Infection Onset Date Last Indicated Resolved Time MRSA-Contact Isolation Comment: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, chest, and elbow 02/17/2016 02/17/2016 Rule Out C-difficile 10/04/2023 10/05/2023 024 7:28 PM STAFF NURSE MIDWIFE C-difficile 10/05/2023 10/05/2023 11/04/2023 11:3 9 PM STAFF NURSE MIDWIFE Rule Out C-difficile 09/03/2024 09/04/2024 025 12:45 PM STAFF NURSE MIDWIFE Assessment Noted Time PHQ-9 Depression Total Score: 9 03/02/20 16 7:16 AM CDT documented as of this encounter Care Teams Cathead Worker Relationship Specialty Start Date End Date Jairo Vasquez MD PCP - General Family Medicine - Sports Medicine 12/29/15 Kylee Dailey MD [address] [place] [address]893 Internal Medicine 04/01/17 Kayode Ivey MD [address] [place] [address] Gastroenterology 04/01/17 Nicolasa Perez APRN LEARNING MANAGER [address] [place] [address] [place] [address] Nurse Practitioner Nurse Practitioner 04/28/17 Srinivas Stern PA-C [address] [place] [address]51 Physician Jinriksha Driver Physician Jinriksha Driver 10/02/18 Srinivas Stern PA-C [address] [place] [address]55 Assigned Heart and Vascular Provider 11/19/20 06/27/21 Sue Mckeon [facility] [address] [place] [address]63 Pharmacist Pharmacist Fish Flipper 02/09/21 06/29/22 Karen Trinh MD 909 [place] [address] Assigned Infectious Disease Provider 02/08/21 07/30/22 Violet Ta, [facility] [address] [place] [address] Assigned MTM Pharmacist 02/27/22 05/21/22 [facility] [address] [place] [address] Assigned MTM Pharmacist 06/02/22 07/09/22 Srinivas Stern PA-C [address] [place] [address] Assigned Gastroenterology Provider 07/17/22 Bandar Casas [facility] [address] [facility] 812 [place] [address] Pharmacist Pharmacist 08/18/23 [facility] [address] [place] 489562 [place] [address] Assigned MTM Pharmacist 08/27/23 Ayana Zhang PA-C 5200 [place] [address] Physician Jinriksha Driver Rheumatology 04/16/24 Srinivas Stern PA-C 9 [place] [address] Home Infusion Following Provider Gastroenterology 07/11/24 10/05/24 documented as of this encounter
--- OUTSIDE RECORDS SUMMARY | 2025-01-15 15:49 | XMS_ITS | Encounter Summary ---
Author Organization [place] Address [address] [place] [address]. [place] [address] Care Team Providers Care Development System Efficiency Manager Name Role Phone Jairo Vasquez MD Primary Care Provider [phone] Kylee Dailey MD Unavailable + Kayode Ivey MD Unavailable [phone] Nicolasa Perez APRN PUBLIC RELATIONS CONSULTANT Unavaila ble Srinivas Stern-C Unavailable [phone] Srinivas Stern-C Unavailable [phone] Bandar Casas [facility] Unavailable Bandar Casas [facility] Unavailable Ayana Zhang-C Unavailable Srinivas Stern-C Unavailable [phone] Encounter Details Date Type Department Care Team (Late st Contact Info) Description 01/03/2023 [facility] Gastro[facility]ology Clinic [address] 4th [place] [address] Sierra Cherry MA Social History Tobacco Use Types Packs/Day Years Used Date Smoking Tobacco: Never Smokeless Tobacco: Never Alcohol Use Standard Drinks/Week Comments Yes 13 (1 standard drink = 0.6 oz pu re alcohol) MONTHLY PHQ-2 Answer Date Recorded PHQ-2 Score 0 07/07/2022 Sex and Gender Information Value Date Recorded Sex Assigned at Not on file Legal Sex 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 VOCATIONAL AIDE Gender Identity Not on file Sexual Orientation Not on file 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 Plan of Treatment Upcoming Encounters Date Type Department Care Team (Latest Contact Info) Description 02/13/2025 3:20 PM CDT Appointment [facility] [address] [facility] [address] [place] [phone] Kayode Ivey MD [address] [place] [address] 834465 03/07/2025 3:00 PM CDT Ancillary Procedure [address] [place] [address] Srinivas Stern PA-C [address] [place] [address] 899895 04/24/2025 2:40 PM CDT Virtual Visit [facility] Gastroenterology Clinic [address] 4th [place] [phone] Alexis Torres MD 420 [place], [place] 367945 Srinivas Stern PA-C [address] [place] [address] 829805 06/05/2025 3:30 PM CDT Virtual Visit [facility] [address] [place] [address] 2nd [place] [phone] Kayode Ivey MD [address] [place] [address] 345015 Bandar Casas [facility] 420 [facility] 812 [place], [place] 858685 documented as of this encounter Visit Diagnoses Not on filedocumented in this encounter Additional Health Concerns Infection Onset Date Last Indicated Resolved Time MRSA-Contact Isolation Comment: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, chest, and elbow 02/17/2016 02/17/2016 Rule Out C-difficile 10/04/2023 10/05/2023 024 7:28 PM VOCATIONAL AIDE C-difficile 10/05/2023 10/05/2023 11/04/2023 11:3 9 PM VOCATIONAL AIDE Rule Out C-difficile 09/03/2024 09/04/2024 025 12:45 PM VOCATIONAL AIDE Assessment Noted Time PHQ-9 Depression Total Score: 9 03/02/20 16 7:16 AM CDT documented as of this encounter Care Teams Development System Efficiency Manager Relationship Specialty Start Date End Date Jairo Vasquez MD PCP - General Family Medicine - Sports Medicine 12/29/15 Kylee Dailey MD [address] [place] [address] 2[address] [place], [place] 285545 Internal Medicine 04/01/17 Kayode Ivey MD [address] [place] [address] Gastroenterology 04/01/17 Nicolasa Perez APRN PUBLIC RELATIONS CONSULTANT [address] [place], [place] [address] [place], [place] [address] Nurse Practitioner Nurse Practitioner 04/28/17 Srinivas Stern PA-C [address] [place] [address] 615975 Physician Broadcast Correspondent Physician Broadcast Correspondent 10/02/18 Srinivas Stern PA-C 909 [place] [address] Assigned Gastroenterology Provider 07/17/22 Badnar Casas RPH [address] 834555 Pharmacist Pharmacist 08/18/23 Bandar Casas RPH [address] 915395 Assigned MTM Pharmacist 08/27/23 Ayana Zhang PA-C 5200 [place] [address] Physician Broadcast Correspondent Rheumatology 04/16/24 Srinivas Stern PA-C 909 [place] [address] Home Infusion Following Provider Gastroenterology 07/11/24 10/05/24 documented as of this encounter
--- OUTSIDE RECORDS SUMMARY | 2025-01-15 15:49 | XMS_ITS | Encounter Summary ---
Author Organization [place] Address [address] [place] [address] Care Team Providers Care Sugar Trucker Name Role Phone Jairo Vasquez MD Primary Care Provider [phone] Kylee Dailey MD Unavailable + Kayode Ivey MD Unavailable [phone] Nicolasa Perez APRN RELIEF PILOT Unavaila ble Srinivas Stern PA-C Unavailable +[phone] Sriniavs Stern PA-C Unavailable [phone] Violet Ta [facility] Unavailable +[phone] Sue Mckeon [facility] Unavailable [phone] Karen Trinh MD Unavailable [phone] Violet Ta [facility] Unavailable [phone] Violet Ta [facility] Unavailable +[phone] Srinivas Stern PA-C Unavailable [phone] Bandar Casas [facility] Unavailable [phone] Bandar Casas [facility] Unavailable +[phone] Ayana Zhang PA-C Unavailable [phone] Srinivas Stern PA-C Unavailable [phone] Encounter Details Date Type Department Care Team (Late st Contact Info) Description 11/10/2020 MyC Medical Advice [facility] Gastroenterology Clinic [address] [phone] Kayode Ivey MD [address] [place] [address] Social History Tobacco Use Types Packs/Day Years Used Date Smoking Tobacco: Never Smokeless Tobacco: Never Alcohol Use Standard Drinks/Week Comments Yes 13 (1 standard drink = 0.6 oz pu re alcohol) MONTHLY PHQ-2 Answer Date Recorded PHQ-2 Score 2 08/20/2019 Sex and Gender Information Value Date Recorded Sex Assigned at Not on file Legal Sex 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 PERSONNEL PSYCHOLOGIST Gender Identity Not on file Sexual Orientation Not on file 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 No / Unsure 10/16/2020 6:07 PM PERSONNEL PSYCHOLOGIST documented as of this encounter Plan of Treatment Upcoming Encounters Date Type Department Care Team (Latest Contact Info) Description 02/13/2025 3:20 PM CDT Appointment [facility] [address] [facility] [address] [place] [phone] Kayode Ivey MD [address] [place] [address] 534375 03/07/2025 3:00 PM CDT Ancillary Procedure [address] [place] [address] Srinivas Stern PA-C [address] [place] [address] 788095 04/24/2025 2:40 PM CDT Virtual Visit [facility] Gastro[facility]ology Clinic [address] [phone] Alexis Torres MD 420 [place], [place] 432255 Srinivas Stern PA-C 909 [place] [address] 06/05/2025 3:30 PM CDT Virtual Visit [facility] 909 [facility] 2nd [place] [address] Kayode Ivey MD 516 [place] [address] Bandar Casas [facility] 420 [facility] 812 [place], [place] 976205 documented as of this encounter Visit Diagnoses Not on filedocumented in this encounter Additional Health Concerns Infection Onset Date Last Indicated Resolved Time MRSA-Contact Isolation Comment: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, chest, and elbow 02/17/2016 02/17/2016 Rule Out C-difficile 10/04/2023 10/05/2023 024 7:28 PM PERSONNEL PSYCHOLOGIST C-difficile 10/05/2023 10/05/2023 11/04/2023 11:3 9 PM PERSONNEL PSYCHOLOGIST Rule Out C-difficile 09/03/2024 09/04/2024 025 12:45 PM PERSONNEL PSYCHOLOGIST Assessment Noted Time PHQ-9 Depression Total Score: 9 03/02/20 16 7:16 AM CDT documented as of this encounter Care Teams Sugar Trucker Relationship Specialty Start Date End Date Jairo Vasquez MD PCP - General Family Medicine - Sports Medicine 12/29/15 Kylee Dailey MD 6 [facility] [address] [place], [place] 996565 Internal Medicine 04/01/17 Kayode Ivey MD [address] [place] [address] 880465 Gastroenterology 04/01/17 Nicolasa Perez APRN RELIEF PILOT [address] [place] [address] [id number] [place], [place] [phone] Nurse Practitioner Nurse Practitioner 04/28/17 Srinivas Stern PA-C [address] [place] [address] [id number] Physician Actuarial Consultant Physician Actuarial Consultant 10/02/18 Srinivas Stern PA-C [address] [place] [address] 963315 Assigned Heart and Vascular Provider 11/19/20 06/27/21 Violet Ta [facility] [address] [place] [address] Pharmacist Pharmacist 12/29/20 02/08/21 Sue Mckeon [facility] [address] [place] [address] [phone] Pharmacist Pharmacist Mash Filter Cloth Changer 02/09/21 06/29/22 Karen Trinh MD [address] [place] [address] 463155 Assigned Infectious Disease Provider 02/08/21 07/30/22 Violet Ta [facility] [address] [place] [address] 8[address] Assigned MTM Pharmacist 02/27/22 05/21/22 Violet Ta [facility] [address] [place] [address] Assigned MTM Pharmacist 06/02/22 07/09/22 Srinivas Stern PA-C 909 [place] [address] Assigned Gastroenterology Provider 07/17/22 Bandar Casas RPH [address] [address] Pharmacist Pharmacist 08/18/23 Bandar Casas [place] [address] [address] Assigned MTM Pharmacist 08/27/23 Ayana Zhang PA-C 5200 [place] [address] Physician Actuarial Consultant Rheumatology 04/16/24 Srinivas Stern PA-C 909 [place] [address] Home Infusion Following Provider Gastroenterology 07/11/24 10/05/24 documented as of this encounter
--- OUTSIDE RECORDS SUMMARY | 2025-01-15 15:49 | XMS_ITS | Encounter Summary ---
Author Organization [place] Address [address] [place] [address] Care Team Providers Care Football Scout Name Role Phone Jairo Vasquez MD Primary Care Provider [phone] Kylee Dailey MD Unavailable + Kayode Ivey MD Unavailable [phone] Nicolasa Perez APRN DRAPERY AND UPHOLSTERY ESTIMATOR Unavaila ble Srinivas Stern PA-C Unavailable +[phone] Srinivas Stern PA-C Unavailable [phone] Violet Ta [facility] Unavailable +[phone] Sue Mckeon [facility] Unavailable [phone] Karen Trinh MD Unavailable [phone] Violet Ta [facility] Unavailable [phone] Violet Ta [facility] Unavailable +[phone] Srinivas Stern PA-C Unavailable +[phone] Bandar Casas [facility] Unavailable +[phone] Bandar Casas [facility] Unavailable +[phone] Ayana Zhang PA-C Unavailable [phone] Srinivas Stern PA-C Unavailable [phone] Encounter Details Date Type Department Care Team (Late st Contact Info) Description 10/14/2020 MyC Medical Advice [facility] Gastroenterology Clinic [address] [phone] Blanca Menezes, RN Social History Tobacco Use Types Packs/Day Years Used Date Smoking Tobacco: Never Smokeless Tobacco: Never Alcohol Use Standard Drinks/Week Comments Yes 13 (1 standard drink = 0.6 oz pu re alcohol) MONTHLY PHQ-2 Answer Date Recorded PHQ-2 Score 2 08/20/2019 Sex and Gender Information Value Date Recorded Sex Assigned at Not on file Legal Sex 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 REPORT MANAGER Gender Identity Not on file Sexual Orientation Not on file 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 No / Unsure 10/16/2020 6:07 PM REPORT MANAGER documented as of this encounter Plan of Treatment Upcoming Encounters Date Type Department Care Team (Latest Contact Info) Description 02/13/2025 3:20 PM CDT Appointment [facility] Imaging [address] [facility] [address] [place] [address] Kayode Ivey MD 6 [place], [place] 502085 03/07/2025 3:00 PM CDT Ancillary Procedure [address] [place] [address] Srinivas Stern PA-C 9 [place] [address] 04/24/2025 2:40 PM CDT Virtual Visit [facility] Gastro[facility]ology Clinic [address] [phone] Alexis Torres MD 420 [place] [address] Srinivas Stern PA-C 909 [place], [place] 202235 06/05/2025 3:30 PM CDT Virtual Visit [facility] 9[address] [facility] 2nd [place] [phone] Kayode Ivey MD 516 [place], [place] [phone] Bandar Casas, [facility] 420 [facility] 812 [place], [place] 052525 documented as of this encounter Visit Diagnoses Not on filedocumented in this encounter Additional Health Concerns Infection Onset Date Last Indicated Resolved Time MRSA-Contact Isolation Comment: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, chest, and elbow 02/17/2016 02/17/2016 Rule Out C-difficile 10/04/2023 10/05/2023 024 7:28 PM REPORT MANAGER C-difficile 10/05/2023 10/05/2023 11/04/2023 11:3 9 PM REPORT MANAGER Rule Out C-difficile 09/03/2024 09/04/2024 025 12:45 PM REPORT MANAGER Assessment Noted Time PHQ-9 Depression Total Score: 9 03/02/20 16 7:16 AM CDT documented as of this encounter Care Teams Football Scout Relationship Specialty Start Date End Date Jairo Vasquez MD PCP - General Family Medicine - Sports Medicine 12/29/15 Kylee Dailey MD [address] [place] [address] 2A [place] [address] Internal Medicine 04/01/17 Kayode Ivey MD [address] [place] [address] Gastroenterology 04/01/17 Nicolasa Perez APRN DRAPERY AND UPHOLSTERY ESTIMATOR [address] [place] [address] [id number] [place] [address] Nurse Practitioner Nurse Practitioner 04/28/17 Srinivas Stern PA-C [address] [place] [address] Physician Crane Mechanic Physician Crane Mechanic 10/02/18 Srinivas Stern PA-C [address] [place] [address] 77706 Assigned Heart and Vascular Provider 11/19/20 06/27/21 Violet Ta, [facility] [address] [place] [address] Pharmacist Pharmacist 12/29/20 02/08/21 Sue Mckeon [facility] [address] [place] [address] 60094 Pharmacist Pharmacist Visual And Stock Associate 02/09/21 06/29/22 Karen Trinh MD [address] [place] [address] 88997 Assigned Infectious Disease Provider 02/08/21 07/30/22 Violet Ta, [facility] 480 [facility] [address] [place] [address] Assigned MTM Pharmacist 02/27/22 05/21/22 Violet Ta [facility] 480 [facility] [address] [place] [address] Assigned MTM Pharmacist 06/02/22 07/09/22 Srinivas Stern PA-C 909 [place] [address] Assigned Gastroenterology Provider 07/17/22 Bandar Casas [facility] [address] 626665 Pharmacist Pharmacist 08/18/23 Bandar Casas [facility] [address] 693275 Assigned MTM Pharmacist 08/27/23 Ayana Zhang PA-C 5200 [place] [address] Physician Crane Mechanic Rheumatology 04/16/24 Srinivas Stern PA-C 909 [place], [place] 090415 Home Infusion Following Provider Gastroenterology 07/11/24 10/05/24 documented as of this encounter
--- OUTSIDE RECORDS SUMMARY | 2025-01-15 15:49 | XMS_ITS | Encounter Summary ---
Author Organization [place] Address [address] [place] [address] Care Team Providers Care Parking Supervisor Name Role Phone Jairo Vasquez MD Primary Care Provider [phone] Kylee Dailey MD Unavailable + Kayode Ivey MD Unavailable [phone] Nicolasa Perez APRN HOMOEOPATH Unavaila ble Srinivas Stern PA-C Unavailable [phone] Srinivas Stern PA-C Unavailable [phone] Bandar Casas [facility] Unavailable [phone] Bandar Casas [facility] Unavailable Ayana Zhang PA-C Unavailable Srinivas Stern PA-C Unavailable Encounter Details Date Type Department Care Team (Late st Contact Info) Description 08/09/2024 [facility] [address] [place] [address] Srinivas Stern PA-C [address] [place] [address] Social History Tobacco Use Types [...] file Legal Sex 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 ORDER ENTRY REPRESENTATIVE Gender Identity Not on file Sexual Orientation Not on file 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 Plan of Treatment Upcoming Encounters Date Type Department Care Team (Latest Contact Info) Description 02/13/2025 3:20 PM CDT Appointment [facility] Imaging [address] [facility] [address] [place] [address] Kayode Ivey MD [address] [place] [address] 03/07/2025 3:00 PM CDT Ancillary Procedure [address] [place] [address] Srinivas Stern PA-C [address] [place] [address] 04/24/2025 2:40 PM CDT Virtual Visit [facility] [address] [place] [address] Alexis Torres MD 420 [place], [place] [phone] Srinivas Stern PA-C [address] [place] [address] 06/05/2025 3:30 PM CDT Virtual Visit [facility] [address] [phone] Kayode Ivey MD [address] [place] [address] Bandar Casas, RPH 420 [facility] 812 [place] [address] documented as of this encounter Visit Diagnoses Not on filedocumented in this encounter Additional Health Concerns Infection Onset Date Last Indicated Resolved Time MRSA-Contact Isolation Comment: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, chest, and elbow 02/17/2016 02/17/2016 Rule Out C-difficile 09/03/2024 09/04/2024 025 12:45 PM ORDER ENTRY REPRESENTATIVE Assessment Noted Time PHQ-9 Depression Total Score: 9 03/02/20 16 7:16 AM CDT documented as of this encounter Care Teams Parking Supervisor Relationship Specialty Start Date End Date Jairo Vasquez MD PCP - General Family Medicine - Sports Medicine 12/29/15 Kylee Dailey MD 6 [facility] [place] [address] Internal Medicine 04/01/17 Kayode Ivey MD 6 [place] [address] Gastroenterology 04/01/17 Nicolasa Perez APRN HOMOEOPATH [address] [place] [address] [place] [address] Nurse Practitioner Nurse Practitioner 04/28/17 Srinivas Stern PA-C [address] [place] [address] Physician Explosives Truck Driver Physician Explosives Truck Driver 10/02/18 Srinivas Stern PA-C 909 [place] [address] Assigned Gastroenterology Provider 07/17/22 Bandar Casas RPH [address] [phone] Pharmacist Pharmacist 08/18/23 Bandar Casas RPH [address] [phone] Assigned MTM Pharmacist 08/27/23 Ayana Zhang PA-C 5200 [place] [address] Physician Explosives Truck Driver Rheumatology 04/16/24 Srinivas Stern PA-C 909 [place] [address] Home Infusion Following Provider Gastroenterology 07/11/24 10/05/24 documented as of this encounter
--- OUTSIDE RECORDS SUMMARY | 2025-01-15 15:49 | XMS_ITS | Encounter Summary ---
Author Organization [place] Address [address] [place] [address] Care Team Providers Care Pivot Maker Name Role Phone Jairo Vasquez MD Primary Care Provider [phone] Kylee Dailey MD Unavailable + Kayode Ivey MD Unavailable [phone] Nicolasa Perez APRN EPIC ANALYST Unavaila ble Srinivas Stern PA-C Unavailable Sue Mckeon [facility] Unavailable [phone] Karen Trinh MD Unavailable [phone] Violet Ta [facility] Unavailable Violet Ta [facility] Unavailable Srinivas Stern PA-C Unavailable [phone] Bandar Casas [facility] Unavailable Bandar Casas [facility] Unavailable Ayana Zhang PA-C Unavailable Srinivas Stern PA-C Unavailable [phone] Encounter Details Date Type Department Care Team (Late st Contact Info) Description 05/13/2022 [facility] [address] [place] [address] Jimbo Parker, RN Social History Tobacco Use Types Packs/Day Years Used Date Smoking Tobacco: Never Smokeless Tobacco: Never Alcohol Use Standard Drinks/Week Comments Yes 13 (1 standard drink = 0.6 oz pu re alcohol) MONTHLY PHQ-2 Answer Date Recorded PHQ-2 Score 0 01/19/2022 Sex and Gender Information Value Date Recorded Sex Assigned at Not on file Legal Sex 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 HOTEL YARDPERSON Gender Identity Not on file Sexual Orientation Not on file 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 No / Unsure 05/14/2022 12:29 PM CDT documented as of this encounter Plan of Treatment Upcoming Encounters Date Type Department Care Team (Latest Contact Info) Description 02/13/2025 3:20 PM CDT Appointment [facility] Imaging [address] [facility] [address] [place] [phone] Kayode Ivey MD [address] [place] [address] 03/07/2025 3:00 PM CDT Ancillary Procedure [address] [place] [address] Srinivas Stern PA-C [address] [place] [address] 04/24/2025 2:40 PM CDT Virtual Visit [facility] Gastroenterology Clinic [address] 4th [place] [address] Alexis Torres MD 420 [place], [place] [phone] Srinivas Stern PA-C [address] [place] [address] 06/05/2025 3:30 PM CDT Virtual Visit [facility] M[facility] [address] [facility] [address] 2nd [place] [address] Kayode Ivey MD [address] [place], [place] [phone] Bandar Casas, [facility] 420 [facility] 812 [place], [place] 394[address] documented as of this encounter Visit Diagnoses Not on filedocumented in this encounter Additional Health Concerns Infection Onset Date Last Indicated Resolved Time MRSA-Contact Isolation Comment: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, chest, and elbow 02/17/2016 02/17/2016 Rule Out C-difficile 10/04/2023 10/05/2023 024 7:28 PM HOTEL YARDPERSON C-difficile 10/05/2023 10/05/2023 11/04/2023 11:3 9 PM HOTEL YARDPERSON Rule Out C-difficile 09/03/2024 09/04/2024 025 12:45 PM HOTEL YARDPERSON Assessment Noted Time PHQ-9 Depression Total Score: 9 03/02/20 16 7:16 AM CDT documented as of this encounter Care Teams Pivot Maker Relationship Specialty Start Date End Date Jairo Vasquez MD PCP - General Family Medicine - Sports Medicine 12/29/15 Kylee Dailey MD [address] [place] [address] [address] [place], [place] 781205 Internal Medicine 04/01/17 Kayode Ievy MD [address] [place] [address] 611465 Gastroenterology 04/01/17 Nicolasa Perez APRN EPIC ANALYST 9 [facility] [id number] [place] [address] Nurse Practitioner Nurse Practitioner 04/28/17 Srinivas Stern PA-C [address] [place] [address] Physician Gate Supervisor Physician Gate Supervisor 10/02/18 Sue Mckeon, [facility] [address] [place] [address] Pharmacist Pharmacist Quill Collector 02/09/21 06/29/22 Karen Trinh MD [address] [place] [address] [phone] Assigned Infectious Disease Provider 02/08/21 07/30/22 Violet Ta, [facility] 480 [facility] [address] [place] [address] Assigned MTM Pharmacist 02/27/22 05/21/22 Violet Ta [facility] [address] [place] [address] Assigned MTM Pharmacist 06/02/22 07/09/22 Srinivas Stern PA-C [address] [place] [address] Assigned Gastroenterology Provider 07/17/22 Bandar Casas [facility] [address] [facility] [address] [facility] [address] [place] [address] Pharmacist Pharmacist 08/18/23 Bandar Casas RPH 420 [facility] 812 [place] [address] Assigned MTM Pharmacist 08/27/23 Ayana Zhang PA-C 5200 [place] [address] Physician Gate Supervisor Rheumatology 04/16/24 Srinivas Stern PA-C 909 [place] [address] Home Infusion Following Provider Gastroenterology 07/11/24 10/05/24 documented as of this encounter
--- OUTSIDE RECORDS SUMMARY | 2025-01-15 15:49 | XMS_ITS | Encounter Summary ---
Author Organization [place] Address [address] [place] [address] Care Team Providers Care Web Site Designer Name Role Phone Jairo Vasquez MD Primary Care Provider [phone] Kylee Dailey MD Unavailable + Kayode Ivey MD Unavailable [phone] Nicolasa Perez APRN ELECTRICAL TECH/PROJECT MANAGER Unavaila ble Srinivas Stern PA-C Unavailable [phone] Srinivas Stern PA-C Unavailable [phone] Violet Ta [facility] Unavailable [phone] Sue Mckeon [facility] Unavailable [phone] Karen Trinh MD Unavailable [phone] Violet Ta [facility] Unavailable [phone] Violet Ta [facility] Unavailable [phone] Srinivas Stern PA-C Unavailable [phone] Bandar Casas [facility] Unavailable [phone] Bandar Casas [facility] Unavailable [phone] Ayana Zhang PA-C Unavailable [phone] Srinivas Stren PA-C Unavailable [phone] Encounter Details Date Type Department Care Team (Late st Contact Info) Description 09/16/2020 MyC Medical Advice [facility] Gastroenterology Clinic [address] [phone] Blanca Menezes, RN Social History Tobacco Use Types Packs/Day Years Used Date Smoking Tobacco: Never Smokeless Tobacco: Never Alcohol Use Standard Drinks/Week Comments Yes 13 (1 standard drink = 0.6 oz pu re alcohol) MONTHLY PHQ-2 Answer Date Recorded PHQ-2 Score 2 08/20/2019 Sex and Gender Information Value Date Recorded Sex Assigned at Not on file Legal Sex 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 LIBRARY MEDIA ASSISTANT Gender Identity Not on file Sexual Orientation Not on file 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 Plan of Treatment Upcoming Encounters Date Type Department Care Team (Latest Contact Info) Description 02/13/2025 3:20 PM CDT Appointment [facility] Imaging [address] [facility] [address] [place] [phone] Kayode Ivey MD 516 [place], [place] [phone] 03/07/2025 3:00 PM CDT Ancillary Procedure [address] [place] [address] Srinivas Stern PA-C [address] [place] [address] 04/24/2025 2:40 PM CDT Virtual Visit [facility] Gastroenterology Clinic [address] [phone] Alexis Torres MD 420 [place], [place] 980495 Srinivas Stern PA-C [address] [place] [address] 06/05/2025 3:30 PM CDT Virtual Visit [facility] [address] [facility] [address] 2nd [place] [address] Kayode Ivey MD 516 [place], [place] 523865 Bandar Casas, [facility] 420 [facility] 812 [place], [place] 131035 documented as of this encounter Visit Diagnoses Not on filedocumented in this encounter Additional Health Concerns Infection Onset Date Last Indicated Resolved Time MRSA-Contact Isolation Comment: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, chest, and elbow 02/17/2016 02/17/2016 Rule Out C-difficile 10/04/2023 10/05/2023 024 7:28 PM LIBRARY MEDIA ASSISTANT C-difficile 10/05/2023 10/05/2023 11/04/2023 11:3 9 PM LIBRARY MEDIA ASSISTANT Rule Out C-difficile 09/03/2024 09/04/2024 025 12:45 PM LIBRARY MEDIA ASSISTANT Assessment Noted Time PHQ-9 Depression Total Score: 9 03/02/20 16 7:16 AM CDT documented as of this encounter Care Teams Web Site Designer Relationship Specialty Start Date End Date Jairo Vasquez MD PCP - General Family Medicine - Sports Medicine 12/29/15 Kylee Dailey MD [address] [place] [address] [address] [place], [place] 430015 Internal Medicine 04/01/17 Kayode Ivey MD [address] [place] [address] 519015 Gastroenterology 04/01/17 Nicolasa Perez APRN ELECTRICAL TECH/PROJECT MANAGER [address] [place] [address] [id number] [place] [address] Nurse Practitioner Nurse Practitioner 04/28/17 Srinivas Stern PA-C [address] [place] [address] Physician Molasses Feed Mixer Physician Molasses Feed Mixer 10/02/18 Srinivas Stern PA-C [address] [place] [address] [phone] Assigned Heart and Vascular Provider 11/19/20 06/27/21 Violet Ta, [facility] [address] [place] [address] Pharmacist Pharmacist 12/29/20 02/08/21 Sue Mckeon [facility] [address] [place] [address] Pharmacist Pharmacist Retail Wireless Sales Consultant 02/09/21 06/29/22 Karen Trinh MD [address] [place] [address] Assigned Infectious Disease Provider 02/08/21 07/30/22 Violet Ta, [facility] [address] [place] [address] Assigned MTM Pharmacist 02/27/22 05/21/22 Violet Ta, [facility] [address] [place] [address] Assigned MTM Pharmacist 06/02/22 07/09/22 Srinivas Stern PA-C [address] [place] [address] [id number] Assigned Gastroenterology Provider 07/17/22 Bandar Casas RPH [address] [place] [address] [phone] Pharmacist Pharmacist 08/18/23 Bandar Casas RPH [address] [place] [address] [phone] Assigned MTM Pharmacist 08/27/23 Ayana Zhang PA-C [address] [place] [address] Physician Molasses Feed Mixer Rheumatology 04/16/24 Srinivas Stern PA-C [address] [place] [address] [phone] Home Infusion Following Provider Gastroenterology 07/11/24 10/05/24 documented as of this encounter
--- OUTSIDE RECORDS SUMMARY | 2025-01-15 15:49 | XMS_ITS | Encounter Summary ---
Author Organization [place] Address [address] [place] [address] Care Team Providers Care Stone Sandblaster Name Role Phone Jairo Vasquez MD Primary Care Provider [phone] Kylee Dailey MD Unavailable + Kayode Ivey MD Unavailable [phone] Nicolasa Perez APRN AUCTION BLOCK CLERK Unavaila ble Srinivas Stern PA-C Unavailable [phone] Srinivas Stern PA-C Unavailable [phone] Violet Ta [facility] Unavailable [phone] Sue Mckeon [facility] Unavailable [phone] Karen Trinh MD Unavailable [phone] Violet Ta [facility] Unavailable [phone] Violet Ta [facility] Unavailable +[phone] Srinivas Stern PA-C Unavailable [phone] Bandar Casas [facility] Unavailable [phone] Bandar Casas [facility] Unavailable [phone] Ayana Zhang PA-C Unavailable [phone] Srinivas Stern PA-C Unavailable [phone] Encounter Details Date Type Department Care Team (Late st Contact Info) Description 09/10/2020 MyC Medical Advice [facility] Gastroenterology Clinic [address] [address] Kayode Ivey MD 6 [place], [place] [phone] Social History Tobacco Use Types Packs/Day Years Used Date Smoking Tobacco: Never Smokeless Tobacco: Never Alcohol Use Standard Drinks/Week Comments Yes 13 (1 standard drink = 0.6 oz pu re alcohol) MONTHLY PHQ-2 Answer Date Recorded PHQ-2 Score 2 08/20/2019 Sex and Gender Information Value Date Recorded Sex Assigned at Not on file Legal Sex 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 FACTORY MAINTENANCE TECHNICIAN Gender Identity Not on file Sexual Orientation Not on file 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 Plan of Treatment Upcoming Encounters Date Type Department Care Team (Latest Contact Info) Description 02/13/2025 3:20 PM CDT Appointment [facility] Imaging [address] [facility] [address] [place] [phone] Kayode Ivey MD 6 [place], [place] [phone] 03/07/2025 3:00 PM CDT Ancillary Procedure [address] [place] [address] Srinivas Stern PA-C [address] [place] [address] [phone] 04/24/2025 2:40 PM CDT Virtual Visit [facility] Gastroenterology Clinic [address] [phone] Alexis Torres MD 420 [place], [place] [phone] Srinivas Stern PA-C 909 [place], [place] [phone] 06/05/2025 3:30 PM CDT Virtual Visit [place] 909 [facility] 2nd [place] [phone] Kayode Ivey MD 516 [place] [address] Bandar Casas, [facility] 420 [facility] 812 [place] [address] documented as of this encounter Visit Diagnoses Not on filedocumented in this encounter Additional Health Concerns Infection Onset Date Last Indicated Resolved Time MRSA-Contact Isolation Comment: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, chest, and elbow 02/17/2016 02/17/2016 Rule Out C-difficile 10/04/2023 10/05/2023 024 7:28 PM FACTORY MAINTENANCE TECHNICIAN C-difficile 10/05/2023 10/05/2023 11/04/2023 11:3 9 PM FACTORY MAINTENANCE TECHNICIAN Rule Out C-difficile 09/03/2024 09/04/2024 025 12:45 PM FACTORY MAINTENANCE TECHNICIAN Assessment Noted Time PHQ-9 Depression Total Score: 9 03/02/20 16 7:16 AM CDT documented as of this encounter Care Teams Stone Sandblaster Relationship Specialty Start Date End Date Jairo Vasquez MD PCP - General Family Medicine - Sports Medicine 12/29/15 Kylee Dailey MD [address] [place] [address] [address] [place] [address] Internal Medicine 04/01/17 Kayode Ivey MD [address] [place] [address] Gastroenterology 04/01/17 Nicolasa Perez APRN CNP [address] [place] [address] [id number] [place] [address] Nurse Practitioner Nurse Practitioner 04/28/17 Srinivas Stern PA-C [address] [place] [address] Physician Stucco Mason Physician Stucco [place] 10/02/18 Srinivas Stern PA-C [address] [place] [address] Assigned Heart and Vascular Provider 11/19/20 06/27/21 Violet Ta [facility] [address] [place] [address] Pharmacist Pharmacist 12/29/20 02/08/21 Sue Mckeon [facility] [address] [place] [address] Pharmacist Pharmacist Metallurgical Engineering Teacher 02/09/21 06/29/22 Karen Trinh MD [address] [place] [address] Assigned Infectious Disease Provider 02/08/21 07/30/22 Violet Ta [facility] [address] [place] [address] Assigned MTM Pharmacist 02/27/22 05/21/22 Violet Ta [facility] [address] [place] [address] Assigned MTM Pharmacist 06/02/22 07/09/22 Srinivas Stern PA-C 909 [place] [address] Assigned Gastroenterology Provider 07/17/22 Bandar Casas [facility] [address] [phone] Pharmacist Pharmacist 08/18/23 Bandar Casas [facility] [address] 164265 Assigned MTM Pharmacist 08/27/23 Ayana Zhang PA-C 5[address] [place] [address] Physician Stucco [place] Rheumatology 04/16/24 Srinivas Stern PA-C 909 [place] [address] Home Infusion Following Provider Gastroenterology 07/11/24 10/05/24 documented as of this encounter
--- OUTSIDE RECORDS SUMMARY | 2025-01-15 15:49 | XMS_ITS | Encounter Summary ---
Author Organization [place] Address [address] [place] [address] Care Team Providers Care General Agent Name Role Phone Jairo Vasquez MD Primary Care Provider [phone] Kylee Dailey MD Unavailable + Kayode Ivey MD Unavailable [phone] Nicolasa Perez APRN REFUELING RAMP SUPERVISOR Unavaila ble Loyda Dickey RN Unavailable [phone] Srinivas Stern PA-C Unavailable +[phone] Srinivas Stern PA-C Unavailable +[phone] Violet Ta [facility] Unavailable +[phone] Sue Mckeon [facility] Unavailable [phone] Karen Trinh MD Unavailable +[phone] Violet Ta [facility] Unavailable +[phone] Violet Ta [facility] Unavailable +[phone] Srinivas Stern PA-C Unavailable +[phone] Bandar Casas [facility] Unavailable +[phone] Bandar Casas [facility] Unavailable Ayana Zhang PA-C Unavailable [phone] Srinivas Stern PA-C Unavailable Encounter Details Date Type Department Care Team (Late st Contact Info) Description 01/15/2019 MyC Medical Advice [facility] [address] [place] [address] Kayode Ivey MD 6 [place], [place] [phone] Social History Tobacco Use Types Packs/Day Years Used Date Smoking Tobacco: Never Smokeless Tobacco: Never Alcohol Use Standard Drinks/Week Comments Yes 13 (1 standard drink = 0.6 oz pu re alcohol) MONTHLY Sex and Gender Information Value Date Recorded Sex Assigned at Not on file Legal Sex 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 PROMOTIONAL MODEL Gender Identity Not on file Sexual Orientation Not on file 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 G[facility]ology [facility] [address] [address] Alexis Torres MD 420 [place] [address] Srinivas Stern PA-C 909 [place], [place] [phone] 06/05/2025 3:30 PM CDT Virtual Visit [facility] 909 [facility] 2nd [place] [phone] Kayode Ivey MD 516 [place] [address] Bandar Casas, [facility] 420 [facility] 812 [place] [address] documented as of this encounter Visit Diagnoses Not on filedocumented in this encounter Additional Health Concerns Infection Onset Date Last Indicated Resolved Time MRSA-Contact Isolation Comment: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, chest, and elbow 02/17/2016 02/17/2016 Rule Out C-difficile 10/04/2023 10/05/2023 024 7:28 PM PROMOTIONAL MODEL C-difficile 10/05/2023 10/05/2023 11/04/2023 11:3 9 PM PROMOTIONAL MODEL Rule Out C-difficile 09/03/2024 09/04/2024 025 12:45 PM PROMOTIONAL MODEL Assessment Noted Time PHQ-9 Depression Total Score: 9 03/02/20 16 7:16 AM CDT documented as of this encounter Care Teams General Agent Relationship Specialty Start Date End Date Jairo Vasquez MD PCP - General Family Medicine - Sports Medicine 12/29/15 Kylee Dailey MD [address] [place] [address] 2A [place], [place] [phone] Internal Medicine 04/01/17 Kayode Ivey MD [address] [place] [address] Gastroenterology 04/01/17 Nicolasa Perez APRN REFUELING RAMP SUPERVISOR [address] [place] [address] [id number] [place], [place] 636675 Nurse Practitioner Nurse Practitioner 04/28/17 Loyda Dickey RN Nurse Coordinator Neurology 05/26/17 02/26/19 Srinivas Stern PA-C [address] [place] [address] Physician Traffic Enumerator Physician Traffic Enumerator 10/02/18 Srinivas Stern PA-C [address] [place] [address] Assigned Heart and Vascular Provider 11/19/20 06/27/21 Violet Ta [facility] [address] [place] [address] Pharmacist Pharmacist 12/29/20 02/08/21 Sue Mckeon [facility] [address] [place] [address] 061215 Pharmacist Pharmacist Senior Db2 Systems Programmer 02/09/21 06/29/22 Karen Trinh MD [address] [place] [address] [id number] Assigned Infectious Disease Provider 02/08/21 07/30/22 Violet Ta [facility] [address] [place] [address] 96 [place], [place] [phone] Assigned MTM Pharmacist 02/27/22 05/21/22 Violet Ta [facility] 480 [facility] 96 [place] [address] Assigned MTM Pharmacist 06/02/22 07/09/22 Srinivas Stern PA-C [address] [place] [address] Assigned Gastroenterology Provider 07/17/22 Bandar Casas RPH 420 [facility] 812 [place] [address] Pharmacist Pharmacist 08/18/23 Bandar Casas RP [address] [address] Assigned MTM Pharmacist 08/27/23 Ayana Zhang PA-C [address] [place] [address] Physician Traffic Enumerator Rheumatology 04/16/24 Srinivas Stern PA-C 909 [place] [address] Home Infusion Following Provider Gastroenterology 07/11/24 10/05/24 documented as of this encounter
--- OUTSIDE RECORDS SUMMARY | 2025-01-15 15:49 | XMS_ITS | Encounter Summary ---
Author Organization [place] Address [address] [place] [address] Care Team Providers Care Studio Receptionist Name Role Phone Jairo Vasquez MD Primary Care Provider Kylee Dailey MD Unavailable + Kayode Ivey MD Unavailable [phone] Nicolasa Perez APRN DATA MANAGEMENT ASSOCIATE Unavaila ble Srinivas Stern PA-C Unavailable [phone] Srinivas Stern-C Unavailable Bandar Casas [facility] Unavailable Bandar Casas [facility] Unavailable Ayana Zhang PA-C Unavailable Encounter Details Date Type Department Care Team (Late st Contact Info) Description 10/24/2024 [facility] Gastroenterology Clinic [place] 6[address]69 [facility] 4th [place] [address] Kayode Ivey MD [address] [place] [address] Social History Tobacco Use Types Packs/Day [...] on file Legal Sex 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 WINDOW CASER Gender Identity Not on file Sexual Orientation Not on file 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 Imaging [address] [facility] [address] [place] [phone] Kayode Ivey MD [address] [place] [address] [phone] 03/07/2025 3:00 PM CDT Ancillary Procedure [address] [place] [address] Srinivas Stern PA-C [address] [place] [address] 551525 04/24/2025 2:40 PM CDT Virtual Visit [facility] G[facility]ology Clinic [address] [place] [phone] Alexis Torres MD 420 [place], [place] 324595 Srinivas Stern PA-C [address] [place] [address] 850225 06/05/2025 3:30 PM CDT Virtual Visit [facility] GI [address] [phone] Kayode Ivey MD [address] [place] [address] [phone] Bandar Casas, [facility] 420 [facility] 812 [place] [address] documented as of this encounter Visit Diagnoses Not on filedocumented in this encounter Additional Health Concerns Infection Onset Date Last Indicated Resolved Time MRSA-Contact Isolation Comment: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, chest, and elbow 02/17/2016 02/17/2016 Assessment Noted Time PHQ-9 Depression Total Score: 9 03/02/20 16 7:16 AM CDT documented as of this encounter Care Teams Studio Receptionist Relationship Specialty Start Date End Date Jairo Vasquez MD PCP - General Family Medicine - Sports Medicine 12/29/15 Kylee Dailey MD 6 [facility] 2A [place], [place] 617815 Internal Medicine 04/01/17 Kayode Ivey MD [address] [place] [address] 179125 Gastroenterology 04/01/17 Nicolasa Perez APRN DATA MANAGEMENT ASSOCIATE [address] [place] [address] [id number] [place], [place] 889295 Nurse Practitioner Nurse Practitioner 04/28/17 Srinivas Stern PA-C [address] [place] [address] 506245 Physician Med Asst Physician Med Asst 10/02/18 Srinivas Stern PA-C [address] [place] [address] 607305 Assigned Gastroenterology Provider 07/17/22 Bandar Casas RPH 420 [place] 553982 [place], [place] 489895 Pharmacist Pharmacist 08/18/23 Bandar Casas RPH [address] [phone] Assigned MTM Pharmacist 08/27/23 Ayana Zhang PA-C 5200 [place] [address] Physician Med Asst Rheumatology 04/16/24 documented as of this encounter
--- OUTSIDE RECORDS SUMMARY | 2025-01-15 15:49 | XMS_ITS | Encounter Summary ---
Author Organization [place] Address [address] [place] [address] Care Team Providers Care Admeasurer Name Role Phone Jairo Vasquez MD Primary Care Provider [phone] Kylee Dailey MD Unavailable + Kayode Ivey MD Unavailable [phone] Nicolasa Perez APRN MIXER HELPER Unavaila ble Loyda Dickey RN Unavailable [phone] Srinivas Stern PA-C Unavailable [phone] Srinivas Stern PA-C Unavailable +[phone] Violet Ta [facility] Unavailable +[phone] Sue Mckeon [facility] Unavailable [phone] Karen Trinh MD Unavailable +[phone] Violet Ta [facility] Unavailable +[phone] Violet Ta [facility] Unavailable +[phone] Srinivas Stern PA-C Unavailable +[phone] Bandar Casas [facility] Unavailable [phone] Bandar Casas [facility] Unavailable Ayana Zhang PA-C Unavailable [phone] Srinivas Stern PA-C Unavailable [phone] Encounter Details Date Type Department Care Team (Late st Contact Info) Description 03/26/2018 MyC Medical Advice [facility] Gastroenterology and IBD Clinic [address] [place] [address] Kayode Ivey MD 6 [place], [place] 648605 Social History Tobacco Use Types Packs/Day Years Used Date Smoking Tobacco: Never Smokeless Tobacco: Never Alcohol Use Standard Drinks/Week Comments Yes 13 (1 standard drink = 0.6 oz pu re alcohol) MONTHLY Sex and Gender Information Value Date Recorded Sex Assigned at Not on file Legal Sex 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 SENIOR CONTRACT SPECIALIST Gender Identity Not on file Sexual Orientation Not on file 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 Plan of Treatment Upcoming Encounters Date Type Department Care Team (Latest Contact Info) Description 02/13/2025 3:20 PM CDT Appointment [facility] Center Imaging [address] [facility] [address] [place] [phone] Kayode Ivey MD 6 [place] [address] 03/07/2025 3:00 PM CDT Ancillary Procedure [address] [place] [address] Srinivas Stern PA-C 9 [place], [place] 7[address]995 04/24/2025 2:40 PM CDT Virtual Visit [facility] Gastroenterology Clinic [address] [address] Alexis Torres MD 420 [place] [address] Srinivas Stern PA-C 909 [place], [place] [phone] 06/05/2025 3:30 PM CDT Virtual Visit Viola [facility] 909 [facility] 2nd [place] [phone] Kayode Ivey MD 516 [place] [address] Bandar Casas, [facility] 420 [facility] 812 [place] [address] documented as of this encounter Visit Diagnoses Not on filedocumented in this encounter Additional Health Concerns Infection Onset Date Last Indicated Resolved Time MRSA-Contact Isolation Comment: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, chest, and elbow 02/17/2016 02/17/2016 Rule Out C-difficile 10/04/2023 10/05/2023 024 7:28 PM SENIOR CONTRACT SPECIALIST C-difficile 10/05/2023 10/05/2023 11/04/2023 11:3 9 PM SENIOR CONTRACT SPECIALIST Rule Out C-difficile 09/03/2024 09/04/2024 025 12:45 PM SENIOR CONTRACT SPECIALIST Assessment Noted Time PHQ-9 Depression Total Score: 9 03/02/20 16 7:16 AM CDT documented as of this encounter Care Teams Admeasurer Relationship Specialty Start Date End Date Jairo Vasquez MD PCP - General Family Medicine - Sports Medicine 12/29/15 Kylee Dailey MD [address] [place] [address] 2A [place], [place] [phone] Internal Medicine 04/01/17 Kayode Ivey MD [address] [place] [address] Gastroenterology 04/01/17 Nicolasa Perez APRN MIXER HELPER [address] [place] [address] [id number] [place], [place] 488875 Nurse Practitioner Nurse Practitioner 04/28/17 Loyda Dickey RN Nurse Coordinator Neurology 05/26/17 02/26/19 Sriinvas Stern PA-C [address] [place] [address] Physician Quality Facilitator Physician Quality Facilitator 10/02/18 Srinivas Stern PA-C [address] [place] [address] Assigned Heart and Vascular Provider 11/19/20 06/27/21 Violet Ta [facility] [address] [place] [address] Pharmacist Pharmacist 12/29/20 02/08/21 Sue Mckeon [facility] [address] [place] [address] 685015 Pharmacist Pharmacist Snack Bar Cashier 02/09/21 06/29/22 Karen Trinh MD [address] [place] [address] [phone] Assigned Infectious Disease Provider 02/08/21 07/30/22 Violet Ta [facility] [address] [place] [address] 96 [place], [place] [phone] Assigned MTM Pharmacist 02/27/22 05/21/22 Violet Ta [facility] 480 ON LICENSE OF [facility] [address] [place] [address] Assigned MTM Pharmacist 06/02/22 07/09/22 Srinivas Stern PA-C [address] [place] [address] Assigned Gastroenterology Provider 07/17/22 Bandar Casas RPH 420 [facility] 812 [place] [address] Pharmacist Pharmacist 08/18/23 Bandar Casas RP [address] [address] Assigned MTM Pharmacist 08/27/23 Ayana Zhang PA-C [address] [place] [address] Physician Quality Facilitator Rheumatology 04/16/24 Srinivas Stern PA-C 909 [place] [address] Home Infusion Following Provider Gastroenterology 07/11/24 10/05/24 documented as of this encounter
--- OUTSIDE RECORDS SUMMARY | 2025-01-15 15:49 | XMS_ITS | Encounter Summary ---
Author Organization [place] Address [address] [place] [address] Care Team Providers Care Polishing Machine Operator Helper Name Role Phone Jairo Vasquez MD Primary Care Provider [phone] Kylee Dailey MD Unavailable + Kayode Ivey MD Unavailable [phone] Nicolasa Perez APRN CHANNEL MARKETING SPECIALIST Unavaila ble Srinivas SternC Unavailable [phone] PitSrinivas mcintosh PA-C Unavailable [phone] [facility] Unavailable [phone] Karen Trinh MD Unavailable [phone] [facility] Unavailable Violet Ta [facility] Unavailable [phone] PitSrinivas mcintosh PA-C Unavailable [phone] [facility] Unavailable [phone] [facility] Unavailable [phone] Ayana Zhang PA-C Unavailable [phone] PitSrinivas mcintosh PA-C Unavailable [phone] Encounter Details Date Type Department Care Team (Late st Contact Info) Description 03/13/2021 [facility] Gastroenterology Clinic [address] [phone] Kayode Ivey MD [address] [place] [address] [phone] Social History Tobacco Use Types Packs/Day Years Used Date Smoking Tobacco: Never Smokeless Tobacco: Never Alcohol Use Standard Drinks/Week Comments Yes 13 (1 standard drink = 0.6 oz pu re alcohol) MONTHLY PHQ-2 Answer Date Recorded PHQ-2 Score 1 01/28/2021 Sex and Gender Information Value Date Recorded Sex Assigned at Not on file Legal Sex 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 ASSET PROTECTION LEAD Gender Identity Not on file Sexual Orientation Not on file 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 Plan of Treatment Upcoming Encounters Date Type Department Care Team (Latest Contact Info) Description 02/13/2025 3:20 PM CDT Appointment [facility] [place] [facility] [address] [facility] [address] [place] [phone] Kayode Ivey MD [address] [place] [address] [phone] 03/07/2025 3:00 PM CDT Ancillary Procedure [address] [place] [address] Srinivas Stern PA-C [address] [place] [address] 753985 04/24/2025 2:40 PM CDT Virtual Visit [facility] Gastroenterology Clinic [address] [phone] Alexis Torres MD 420 [place], [place] 173265 Srinivas Stern PA-C [address] [place] [address] 06/05/2025 3:30 PM CDT Virtual Visit [facility] 909 [facility] [address] 2nd [place] [phone] Kayode Ivey MD 516 [place], [place] 515895 Bandar Casas, [facility] 420 [facility] 812 [place], [place] 897685 documented as of this encounter Visit Diagnoses Not on filedocumented in this encounter Additional Health Concerns Infection Onset Date Last Indicated Resolved Time MRSA-Contact Isolation Comment: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, chest, and elbow 02/17/2016 02/17/2016 Rule Out C-difficile 10/04/2023 10/05/2023 024 7:28 PM ASSET PROTECTION LEAD C-difficile 10/05/2023 10/05/2023 11/04/2023 11:3 9 PM ASSET PROTECTION LEAD Rule Out C-difficile 09/03/2024 09/04/2024 025 12:45 PM ASSET PROTECTION LEAD Assessment Noted Time PHQ-9 Depression Total Score: 9 03/02/20 16 7:16 AM CDT documented as of this encounter Care Teams Polishing Machine Operator Helper Relationship Specialty Start Date End Date Jairo Vasquez MD PCP - General Family Medicine - Sports Medicine 12/29/15 Kylee Daliey MD [address] [place], [place] [address]B 2A [place], [place] [address] Internal Medicine 04/01/17 Kayode Ivey MD [address] [place] [address] 489205 Gastroenterology 04/01/17 Nicolasa Perez APRN CHANNEL MARKETING SPECIALIST 909 [facility] [place] [id number] [place] [address] Nurse Practitioner Nurse Practitioner 04/28/17 Srinivas Stern PA-C [address] [place] [address] Physician Mechanical Tech Physician Mechanical Tech 10/02/18 Srinivas Stern PA-C [address] [place] [address] 611945 Assigned Heart and Vascular Provider 11/19/20 06/27/[address] [facility] [address] [place] [address] Pharmacist Pharmacist Molecular Genetic Pathologist 02/09/21 06/29/22 Karen Trinh MD [address] [place] [address] Assigned Infectious Disease Provider 02/08/21 07/30/22 [facility] [address] [place] [address] Assigned MTM Pharmacist 02/27/22 05/21/22 Violet Ta, [facility] [address] [place] [address] Assigned MTM Pharmacist 06/02/22 07/09/22 Srinvias Stern PA-C [address] [place] [address] Assigned Gastroenterology Provider 07/17/22 Bandar Casas RPH [address] [place] [address]402 [place] [address] Pharmacist Pharmacist 08/18/23 Bandar Casas RPH [address] [place] [address]402 [place] [address] Assigned MTM Pharmacist 08/27/23 Ayana Zhang PA-C 5200 [place] [address] Physician Mechanical Tech Rheumatology 04/16/24 Srinivas Stern PA-C [address] [place] [address] Home Infusion Following Provider Gastroenterology 07/11/24 10/05/24 documented as of this encounter
--- OUTSIDE RECORDS SUMMARY | 2025-01-15 15:49 | XMS_ITS | Encounter Summary ---
Author Organization [place] Address [address] [place] [address] Care Team Providers Care Felt Hanger Name Role Phone Jairo Vasquez MD Primary Care Provider [phone] Kylee Dailey MD Unavailable + Kayode Ivey MD Unavailable [phone] Nicolasa Perez APRN CUSTODY OFFICER Unavaila ble Srinivas Stern PA-C Unavailable [phone] Srinivas Stern PA-C Unavailable [phone] Violet Ta [facility] Unavailable [phone] [facility] Unavailable [phone] Karen Trinh MD Unavailable [phone] [address] [facility] Unavailable [phone] [address] [facility] Unavailable +[phone] Srinivas Stern PA-C Unavailable +[phone] Bandar Casas [facility] Unavailable [phone] Bandar Casas [facility] Unavailable [phone] Ayana Zhang PA-C Unavailable [phone] Srinivas Stern PA-C Unavailable [phone] Encounter Details Date Type Department Care Team (Late st Contact Info) Description 09/11/2020 MyC Medical Advice [facility]ology [facility] [address] [address] Kayode Ivey MD 6 [place], [place] 966245 Social History Tobacco Use Types Packs/Day Years Used Date Smoking Tobacco: Never Smokeless Tobacco: Never Alcohol Use Standard Drinks/Week Comments Yes 13 (1 standard drink = 0.6 oz pu re alcohol) MONTHLY PHQ-2 Answer Date Recorded PHQ-2 Score 2 08/20/2019 Sex and Gender Information Value Date Recorded Sex Assigned at Not on file Legal Sex 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 FABRICATION AND ASSEMBLY SUPERVISOR Gender Identity Not on file Sexual Orientation Not on file 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 Plan of Treatment Upcoming Encounters Date Type Department Care Team (Latest Contact Info) Description 02/13/2025 3:20 PM CDT Appointment [facility] Imaging [address] [facility] [address] [place] [phone] Kayode Ivey MD 6 [place], [place] [phone] 03/07/2025 3:00 PM CDT Ancillary Procedure [address] [place] [address] Srinivas Stern PA-C [address] [place] [address] [id number] 04/24/2025 2:40 PM CDT Virtual Visit [facility] [address] [phone] Alexis Torres MD 420 [place], [place] [phone] Srinivas Stern PA-C 909 [place], [place] [phone] 06/05/2025 3:30 PM CDT Virtual Visit [place]ola [place] 909 [facility] 2nd [place] [phone] Kayode Ivey MD 516 [place] [address] Bandar Casas, [facility] 420 [facility] 812 [place] [address] documented as of this encounter Visit Diagnoses Not on filedocumented in this encounter Additional Health Concerns Infection Onset Date Last Indicated Resolved Time MRSA-Contact Isolation Comment: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, chest, and elbow 02/17/2016 02/17/2016 Rule Out C-difficile 10/04/2023 10/05/2023 024 7:28 PM FABRICATION AND ASSEMBLY SUPERVISOR C-difficile 10/05/2023 10/05/2023 11/04/2023 11:3 9 PM FABRICATION AND ASSEMBLY SUPERVISOR Rule Out C-difficile 09/03/2024 09/04/2024 025 12:45 PM FABRICATION AND ASSEMBLY SUPERVISOR Assessment Noted Time PHQ-9 Depression Total Score: 9 03/02/20 16 7:16 AM CDT documented as of this encounter Care Teams Felt Hanger Relationship Specialty Start Date End Date Jairo Vasquez MD PCP - General Family Medicine - Sports Medicine 12/29/15 Kylee Dailey MD [address] [place] [address] 2A [place] [address] Internal Medicine 04/01/17 Kayode Ivey MD [address] [place] [address] Gastroenterology 04/01/17 Nicolasa Perez APRN CNP [address] [place] [address] [id number] [place] [address] Nurse Practitioner Nurse Practitioner 04/28/17 Srinivas Stern PA-C [address] [place] [address] Physician Investigation Division Lieutenant Physician Investigation Division Lieutenant 10/02/18 Srinivas Stern PA-C [address] [place] [address] Assigned Heart and Vascular Provider 11/19/20 06/27/21 Violet [address] [facility] [address] [place] [address] Pharmacist Pharmacist 12/29/20 02/08/[address] [facility] [address] [place] [address] Pharmacist Pharmacist Senior Production Supervisor 02/09/21 06/29/22 Karen Trinh MD [address] [place] [address] Assigned Infectious Disease Provider 02/08/21 07/30/[address] Violet [address] [facility] [address] [place] [address] Assigned MTM Pharmacist 02/27/22 05/21/22 Violet Ta [facility] [address] [place] [address] Assigned MTM Pharmacist 06/02/22 07/09/22 Srinivas Stern PA-C 909 [place] [address] Assigned Gastroenterology Provider 07/17/22 Bandar Cas[address] [facility] [address] 323085 Pharmacist Pharmacist 08/18/23 [address]nar [address] [facility] [address] 710365 Assigned MTM Pharmacist 08/27/23 Ayana Zhang PA-C 5200 [place] [address] Physician Investigation Division Lieutenant Rheumatology 04/16/24 Srinivas Stern PA-C 909 [place] [address] Home Infusion Following Provider Gastroenterology 07/11/24 10/05/24 documented as of this encounter
--- OUTSIDE RECORDS SUMMARY | 2025-01-15 15:49 | XMS_ITS | Encounter Summary ---
Author Organization [place] Address [address] [place] [address] Care Team Providers Care Traveling Sales Executive Name Role Phone Jairo Vasquez MD Primary Care Provider [phone] Kylee Dailey MD Unavailable + Kayode Ivey MD Unavailable [phone] Nicolasa Perez APRN OPERATIONS LOGISTICS ANALYST Unavaila ble Loyda Dickey RN Unavailable [phone] Srinivas Stern PA-C Unavailable [phone] Srinivas Stern PA-C Unavailable +[phone] Violet Ta [facility] Unavailable [phone] Sue Mckeon [facility] Unavailable [phone] Karen Trinh MD Unavailable +[phone] Violet Ta [facility] Unavailable [phone] Violet Ta [facility] Unavailable [phone] Srinivas Stern PA-C Unavailable +[phone] Bandar Casas [facility] Unavailable [phone] Bandar Casas [facility] Unavailable Ayana Zhang PA-C Unavailable [phone] Srinivas Stern PA-C Unavailable [phone] Encounter Details Date Type Department Care Team (Late st Contact Info) Description 01/18/2019 MyC Medical Advice [facility] Gastroenterology and IBD Clinic [address] [place] [address] Kayode Ivey MD 6 [place], [place] 796125 Social History Tobacco Use Types Packs/Day Years Used Date Smoking Tobacco: Never Smokeless Tobacco: Never Alcohol Use Standard Drinks/Week Comments Yes 13 (1 standard drink = 0.6 oz pu re alcohol) MONTHLY Sex and Gender Information Value Date Recorded Sex Assigned at Not on file 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 Gender Identity Not on file Sexual Orientation Not on file 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 Plan of Treatment Upcoming Encounters Date Type Department Care Team (Latest Contact Info) Description 02/13/2025 3:20 PM CDT Appointment [facility] Imaging [address] [facility] [address] [place] [phone] Kayode Ivey MD 6 [place] [address] 03/07/2025 3:00 PM CDT Ancillary Procedure [address] [place] [address] Srinivas Stern PA-C 9 [place], [place] 453095 04/24/2025 2:40 PM CDT Virtual Visit [facility] Gastroenterology Clinic [address] [address] Alexis Torres MD 420 [place] [address] Srinivas Stern PA-C 909 [place], [place] [phone] 06/05/2025 3:30 PM CDT Virtual Visit [facility]ola [facility] 909 [facility] 2nd [place] [phone] Kayode Ivey MD 516 [place] [address] Bandar Casas, [facility] 420 [facility] 812 [place] [address] documented as of this encounter Visit Diagnoses Not on filedocumented in this encounter Additional Health Concerns Infection Onset Date Last Indicated Resolved Time MRSA-Contact Isolation Comment: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, chest, and elbow 02/17/2016 02/17/2016 Rule Out C-difficile 10/04/2023 10/05/2023 024 7:28 PM JUNIOR 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 C-difficile 10/05/2023 10/05/2023 11/04/2023 11:3 9 PM JUNIOR 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 Rule Out C-difficile 09/03/2024 09/04/2024 025 12:45 PM JUNIOR 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 Assessment Noted Time PHQ-9 Depression Total Score: 9 03/02/20 16 7:16 AM CDT documented as of this encounter Care Teams Traveling Sales Executive Relationship Specialty Start Date End Date Jairo Vasquez MD PCP - General Family Medicine - Sports Medicine 12/29/15 Kylee Dailey MD [address] [place] [address] 2A [place], [place] [phone] Internal Medicine 04/01/17 Kayode Ivey MD [address] [place] [address] Gastroenterology 04/01/17 Nicolasa Perez APRN OPERATIONS LOGISTICS ANALYST [address] [place] [address] [id number] [place], [place] 621335 Nurse Practitioner Nurse Practitioner 04/28/17 Loyda Dickey RN Nurse Coordinator Neurology 05/26/17 02/26/19 Srinivas Stern PA-C [address] [place] [address] Physician Tube And Manifold Builder Physician Tube And Manifold Builder 10/02/18 Srinivas Stern PA-C [address] [place] [address] Assigned Heart and Vascular Provider 11/19/20 06/27/21 Violet Ta [facility] [address] [place] [address] Pharmacist Pharmacist 12/29/20 02/08/21 Sue Mckeon [facility] [address] [place] [address] 690765 Pharmacist Pharmacist School Resource Officer 02/09/21 06/29/22 Karen Trinh MD [address] [place] [address] [id number] Assigned Infectious Disease Provider 02/08/21 07/30/22 Violet Ta [facility] [address] [place] [address] 96 [place], [place] [phone] Assigned MTM Pharmacist 02/27/22 05/21/22 Violet Ta [facility] 480 [facility] [address] [place] [address] Assigned MTM Pharmacist 06/02/22 07/09/22 Srinivas Stern PA-C [address] [place] [address] Assigned Gastroenterology Provider 07/17/22 Bandar Casas RPH 420 [facility] 812 [place] [address] Pharmacist Pharmacist 08/18/23 Bandar Casas RP [address] [address] Assigned MTM Pharmacist 08/27/23 Ayana Zhang PA-C [address] [place] [address] Physician Tube And Manifold Builder Rheumatology 04/16/24 Srinivas Stern PA-C 909 [place] [address] Home Infusion Following Provider Gastroenterology 07/11/24 10/05/24 documented as of this encounter
--- OUTSIDE RECORDS SUMMARY | 2025-01-15 15:50 | XMS_ITS | Encounter Summary ---
Author Organization [facility] Address [address] [place] [address] Care Team Providers Care Rn Palliative Name Role Phone Jairo Vasquez MD Primary Care Provider Kylee Dailey MD Unavailable + Kayode Ivey MD Unavailable [phone] Nicolasa Perez APRN VIDEO PRODUCER Unavaila ble Srinivas Stern PA-C Unavailable Srinivas Stern PA-C Unavailable Bandar Casas [facility] Unavailable Band[place] Casas [facility] Unavailable Ayana Zhang PA-C Unavailable Srinivas Stern PA-C Unavailable Encounter Details Date Type Department Care Team (Late st Contact Info) Description 07/30/2024 [facility] [place] [place] [facility] [address] [place] [address] Srinivas Stern PA-C 909 [place] [address] Social History Tobacco Use Types [...] on file Legal Sex 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 MECHATRONICS TECHNOLOGIST Gender Identity Not on file Sexual Orientation Not on file 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 Plan of Treatment Upcoming Encounters Date Type Department Care Team (Latest Contact Info) Description 02/13/2025 3:20 PM CDT Appointment [facility] Imaging [address] [facility] [address] [place] [address] Kayode Ivey MD [address] [place] [address] 03/07/2025 3:00 PM CDT Ancillary Procedure [address] [place] [address] Srinivas Stern PA-C [address] [place] [address] 04/24/2025 2:40 PM CDT Virtual Visit [facility] Gastroenterology Clinic [address] [place] [address] Alexis Torres MD 420 [place], [place] [phone] Srinivas Stern PA-C [address] [place] [address] 06/05/2025 3:30 PM CDT Virtual Visit [facility] GI [address] [phone] Kayode Ivey MD [address] [place] [address] Bandar Casas, RPH 420 [facility] 812 [place] [address] documented as of this encounter Visit Diagnoses Not on filedocumented in this encounter Additional Health Concerns Infection Onset Date Last Indicated Resolved Time MRSA-Contact Isolation Comment: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, chest, and elbow 02/17/2016 02/17/2016 Rule Out C-difficile 09/03/2024 09/04/2024 025 12:45 PM MECHATRONICS TECHNOLOGIST Assessment Noted Time PHQ-9 Depression Total Score: 9 03/02/20 16 7:16 AM CDT documented as of this encounter Care Teams Rn Palliative Relationship Specialty Start Date End Date Jairo Vasquez MD PCP - General Family Medicine - Sports Medicine 12/29/15 Kylee Dailey MD 6 [facility] 2A [place] [address] Internal Medicine 04/01/17 Kayode Ivey MD 6 [place] [address] Gastroenterology 04/01/17 Nicolasa Perez APRN VIDEO PRODUCER [address] [place], [place] [address] [place] [address] Nurse Practitioner Nurse Practitioner 04/28/17 Srinivas Stern PA-C [address] [place] [address] Physician Copyright Manager Physician Copyright Manager 10/02/18 rSinivas Stern PA-C 909 [place] [address] Assigned Gastroenterology Provider 07/17/22 Bandar Casas RPH [address] 203815 Pharmacist Pharmacist 08/18/23 Bandar Casas RPH [address] [address] Assigned MTM Pharmacist 08/27/23 Ayana Zhang PA-C 5200 [place] [address] Physician Copyright Manager Rheumatology 04/16/24 Srinivas Stern PA-C 909 [place] [address] Home Infusion Following Provider Gastroenterology 07/11/24 10/05/24 documented as of this encounter
--- OUTSIDE RECORDS SUMMARY | 2025-01-15 15:50 | XMS_ITS | Encounter Summary ---
Author Organization [place] Address [address] [place] [address] Care Team Providers Care Rubber Factory Worker Name Role Phone Jairo Vasquez MD Primary Care Provider Kylee Dailey MD Unavailable + Kayode Ivey MD Unavailable [phone] Nicolasa Perez APRN ASSEMBLER BICYCLE Unavaila ble Srinivas Stern-C Unavailable Srinivas Stern-C Unavailable [phone] Bandar Casas [facility] Unavailable Bandar Casas [facility] Unavailable [phone] Ayana Zhang-C Unavailable Srinivas Stern-C Unavailable Reason for Visit * Reason Onset Date Comments Prior Auth - Medication 07/09/2024 budesoni de (ENTOCORT EC) 3 MG EC capsule Encounter Details Date Type Department Care Team (Late st Contact Info) Description 07/09/2024 Telephone [facility] Gastroenterology Clinic [place] [address] [facility] 4th [place] [address] Anette Triana RN Prior Auth - Medication (budesonide (ENTOCORT EC) 3 MG EC capsule) Social History Tobacco Use Types Packs/Day Years [...] on file 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 Sex 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 Gender Identity Not on file Sexual Orientation Not on file 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 KSMITH documented in this encounter Plan of Treatment Upcoming Encounters Date Type Department Care Team (Latest Contact Info) Description 02/13/2025 3:20 PM CDT Appointment [facility] Imaging [address] [facility] [address] [place] [phone] Kayode Ivey MD [address] [place] [address] [phone] 03/07/2025 3:00 PM CDT Ancillary Procedure [address] [place] [address] Srinivas Stern PA-C [address] [place] [address] 04/24/2025 2:40 PM CDT Virtual Visit [facility] Gastroenterology Clinic [address] [place] [phone] Alexis Torres MD 420 [place], [place] 404765 Srinivas Stern PA-C [address] [place] [address] 968475 06/05/2025 3:30 PM CDT Virtual Visit [facility] GI [address] [place] [phone] Kayode Ivey MD 6 [place], [place] 371595 Bandar Casas [place] 420 [facility] 812 [place], [place] 857505 documented as of this encounter Visit Diagnoses Not on filedocumented in this encounter Additional Health Concerns Infection Onset Date Last Indicated Resolved Time MRSA-Contact Isolation Comment: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, chest, and elbow 02/17/2016 02/17/2016 Rule Out C-difficile 09/03/2024 09/04/2024 025 12:45 PM CLOCKSMITH Assessment Noted Time PHQ-9 Depression Total Score: 9 03/02/20 16 7:16 AM CDT documented as of this encounter Care Teams Rubber Factory Worker Relationship Specialty Start Date End Date Jairo Vasquez MD PCP - General Family Medicine - Sports Medicine 12/29/15 Kylee Dailey MD [address] [place] [address] [address] [place], [place] 367645 Internal Medicine 04/01/17 Kayode Ivey MD [address] [place] [address] [phone] Gastroenterology 04/01/17 Nicolasa Perez APRN ASSEMBLER BICYCLE [address] [place] [address] [id number] [place], [place] 446325 Nurse Practitioner Nurse Practitioner 04/28/17 Srinivas Stern PA-C [address] [place] [address] 552555 Physician Medical Imaging Technologist Physician Medical Imaging Technologist 10/02/18 Srinivas Stern PA-C [address] [place] [address] 003545 Assigned Gastroenterology Provider 07/17/22 Bandar Casas RPH [address] 562865 Pharmacist Pharmacist 08/18/23 Bandar Casas RPH [address] 440765 Assigned MTM Pharmacist 08/27/23 Ayana Zhang PA-C [address] [place] [address] Physician Medical Imaging Technologist Rheumatology 04/16/24 Srinivas Stern PA-C [address] [place] [address] 976685 Home Infusion Following Provider Gastroenterology 07/11/24 10/05/24 documented as of this encounter
--- OUTSIDE RECORDS SUMMARY | 2025-01-15 15:50 | XMS_ITS | Encounter Summary ---
Author Organization [facility] Address [address] [place] [address] Care Team Providers Care Fleet Director Name Role Phone Jairo Vasquez MD Primary Care Provider [phone] Kylee Dailey MD Unavailable + Kayode Ivey MD Unavailable [phone] Nicolasa Perez APRN ECONOMIC DEVELOPMENT COORDINATOR Unavaila ble Srinivas Stern-C Unavailable Srinivas Stern-C Unavailable Bandar Casas [facility] Unavailable [phone] Bandar Casas [facility] Unavailable [phone] Ayana Zhang-C Unavailable [phone] Srinivas Stern-C Unavailable [phone] Encounter Details Date Type Department Care Team (Late st Contact Info) Description 08/20/2024 [facility] [place] [facility] Gastroenterology Clinic [place] [address] [facility] 4th [place] [address] Kayode Ivey MD [address] [place] [address] Social History Tobacco Use Types Packs/Day [...] file 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 Gender Identity Not on file Sexual Orientation Not on file 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 Plan of Treatment Upcoming Encounters Date Type Department Care Team (Latest Contact Info) Description 02/13/2025 3:20 PM CDT Appointment [facility] Imaging [address] [facility] [address] [place] [address] Kayode Ivey MD [address] [place] [address] 03/07/2025 3:00 PM CDT Ancillary Procedure [address] [place] [address] Srinivas Stern PA-C [address] [place] [address] 04/24/2025 2:40 PM CDT Virtual Visit [facility] Gastroenterology Clinic [address] [place] [address] Alexis Torres MD 420 [place], [place] [phone] Srinivas Stern PA-C [address] [place] [address] 06/05/2025 3:30 PM CDT Virtual Visit [facility] GI [address] [phone] Kayode Ivey MD [address] [place] [address] Bandar Casas, RPH 420 [facility] 812 [place] [address] documented as of this encounter Visit Diagnoses Not on filedocumented in this encounter Additional Health Concerns Infection Onset Date Last Indicated Resolved Time MRSA-Contact Isolation Comment: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, chest, and elbow 02/17/2016 02/17/2016 Rule Out C-difficile 09/03/2024 09/04/2024 025 12:45 PM SUPERVISOR PLASTERING Assessment Noted Time PHQ-9 Depression Total Score: 9 03/02/20 16 7:16 AM CDT documented as of this encounter Care Teams Fleet Director Relationship Specialty Start Date End Date Jairo Vasquez MD PCP - General Family Medicine - Sports Medicine 12/29/15 Kylee Dailey MD 6 [facility] 2A [place] [address] Internal Medicine 04/01/17 Kayode Ivey MD 6 [place] [address] Gastroenterology 04/01/17 Nicolasa Perez APRN ECONOMIC DEVELOPMENT COORDINATOR [address] [place], [place] [address] [address] Nurse Practitioner Nurse Practitioner 04/28/17 Sriniavs Stern PA-C [address] [place] [address] Physician Brim Greaser Operator Physician Brim Greaser Operator 10/02/18 Srinivas Stern PA-C 909 [place] [address] Assigned Gastroenterology Provider 07/17/22 Bandar Casas RPH [address] 068805 Pharmacist Pharmacist 08/18/23 Bandar Casas RPH [address] 345785 Assigned MTM Pharmacist 08/27/23 Ayana Zhang PA-C 5200 [place] [address] Physician Brim Greaser Operator Rheumatology 04/16/24 Srinivas Stern PA-C 909 [place] [address] Home Infusion Following Provider Gastroenterology 07/11/24 10/05/24 documented as of this encounter
--- OUTSIDE RECORDS SUMMARY | 2025-01-15 15:50 | XMS_ITS | Encounter Summary ---
Author Organization [facility] Address [address] [place] [id number] Care Team Providers Care Welfare Supervisor Name Role Phone Jairo Vasquez MD Primary Care Provider Kylee Dailey MD Unavailable + Kayode Ivey MD Unavailable [phone] Nicolasa Perez APRN CANDY DECORATOR Unavaila ble Srinivas Stern PA-C Unavailable Srinivas Stern PA-C Unavailable [phone] Bandar Casas [facility] Unavailable Bandar Csaas [facility] Unavailable Ayana Zhang PA-C Unavailable [phone] Srinivas Stern PA-C Unavailable Encounter Details Date Type Department Care Team (Late st Contact Info) Description 05/17/2024 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 Plan of Treatment Upcoming Encounters Date Type Department Care Team (Latest Contact Info) Description 02/13/2025 3:20 PM CDT Appointment [facility] [id number] [facility] [address] [place] [address] Kayode Ivey MD [address] [place] [address] 03/07/2025 3:00 PM CDT Ancillary Procedure [address] [place] [address] Srinivas Stern PA-C [address] [place] [address] 04/24/2025 2:40 PM CDT Virtual Visit [facility] [address] [place] [address] Alexis Torres MD [address] [place], [place] [phone] Srinivas Stern PA-C [address] [place] [address] 06/05/2025 3:30 PM CDT Virtual Visit [facility] GI [address] [phone] Kayode Ivey MD [address] [place] [address] Bandar Casas, RPH [address] [facility] [address] [place] [address] documented as of this encounter Visit Diagnoses Not on filedocumented in this encounter Additional Health Concerns Infection Onset Date Last Indicated Resolved Time MRSA-Contact Isolation Comment: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, chest, and elbow 02/17/2016 02/17/2016 Rule Out C-difficile 09/03/2024 09/04/2024 025 12:45 PM NAIL CUTTER Assessment Noted Time PHQ-9 Depression Total Score: 9 03/02/20 16 7:16 AM CDT documented as of this encounter Care Teams Welfare Supervisor Relationship Specialty Start Date End Date Jairo Vasquez MD PCP - General Family Medicine - Sports Medicine 12/29/15 Kylee Dailey MD [address] [facility] [address] [place] [address] Internal Medicine 04/01/17 Kayode Ivey MD [address] [place] [address] Gastroenterology 04/01/17 Nicolasa Perez APRN CANDY DECORATOR [address] [place] [id number] [place] [address] Nurse Practitioner Nurse Practitioner 04/28/17 Srinivas Stern PA-C [address] [place] [address] Physician Automotive Starter Repairer Physician Automotive Starter Repairer 10/02/18 Srinivas Stern PA-C [address] [place] [address] Assigned Gastroenterology Provider 07/17/22 Bandar Casas RPH [address] [id number] Pharmacist Pharmacist 08/18/23 Bandar Casas RPH [address] [id number] Assigned MTM Pharmacist 08/27/23 Ayana Zhang PA-C [address] [place] [address] Physician Automotive Starter Repairer Rheumatology 04/16/24 Srinivas Stern PA-C [address] [place] [address] Home Infusion Following Provider Gastroenterology 07/11/24 10/05/24 documented as of this encounter
--- OUTSIDE RECORDS SUMMARY | 2025-01-15 15:50 | XMS_ITS | Clinical Summary ---
Author Organization [facility] Address [address] [place] [id number] Care Team Providers Care Sample Examiner Name Role Phone Jairo Vasquez MD Primary Care Provider Kylee Dailey MD Unavailable + Kayode Ivey MD Unavailable Nicolasa Perez APRN LIBRARY ACQUISITIONS TECHNICIAN Unavaila ble Srinivas Stern-C Unavailable Srinivas Stern-C Unavailable Bandar Casas [facility] Unavailable Bandar Casas [facility] Unavailable [phone] Ayana Zhang-C Unavailable Allergies Active Allergy Reactions Criticality Noted Date Comments Sulfa Antibiotics 12/29/2015 Sulfamethoxazole-Trimethoprim Rash Low 2015 Medications Acetaminophen (TYLENOL PO) Take 1,000 mg by mouth as needed for mild pain or fever Active metFORMIN (GLUCOPHAGE-XR) 500 MG 24 hr tablet 1,000 mg Per pt report 12/10/19 20 Active hydrOXYzine (VISTARIL) 25 MG capsule Take 1-2 capsules by mouth Every 4 to 6 hours as needed for anxiety 01/05/20 21 Active albuterol (PROAIR HFA/PROVENTIL HFA/VENTOLIN HFA) 108 (90 Base) MCG/ACT inhaler Inhale 1-2 puffs into the lungs Every 4 hours if needed for shortness of breath 01/14/20 21 Active atorvastatin (LIPITOR) 10 MG tablet Take 10 mg by mouth At Bedtime 01/08/20 23 Active amLODIPine (NORVASC) 5 MG tablet Take 5 mg by mouth daily. Active Vedolizumab 108 MG/0.68ML SOAJIndications: Ulcerative colitis with rectal bleeding, unspecified location (H) Inject 108 mg subcutaneously every 14 days. 1.36 mL 2 10/19/19 25 Active budesonide (ENTOCORT EC) 3 MG EC capsuleIndicatio ns:Ulcerative colitis with rectal bleeding, unspecified location (H) Take 3 capsules (9 mg) by mouth every morning for 28 days. 84 capsule 12/08/19 25 Active Budesonide 2 MG/ACT FOAMIndications: Ulcerative pancolitis without complication (H) Place 2 mg rectally 2 times daily for 14 days, THEN 2 mg daily for 14 days. 133.6 g 12/27/19 25 025 Active polyethylene glycol (GOLYTELY) 236 g suspensionIndica tions:Ulcerative pancolitis without complication (H) The night before [...] to your colonoscopy prep instructions. 4000 mL 12/29/19 25 Active bisacodyl (DULCOLAX) 5 MG EC tabletIndication s:Ulcerative pancolitis without complication (H) Take 2 tablets at 3 pm the day before your procedure. If your procedure is before 11 am, take 2 additional tablets at 11 pm. If your procedure is after 11 am, take 2 additional tablets at 6 am. For additional instructions refer to your colonoscopy prep instructions. 4 tablet 12/29/19 25 Active Active Problems Problem Noted Date Diagnosed Date Hyperbilirubinemia 06/17/2022 Overview (06/07/2023): Jun 2022: Bilirubin elevated 2.3 after starting Atorvastatin (Lipitor) but also on Entyvio. COVID-19 virus infection 12/26/2020 Overview (06/07/2023): December 2020: positive Covid-19 test. Type 2 diabetes mellitus wit hout complication, without long-term current use of insulin 11/07/2019 Overview (06/07/2023): previously had diabetes when on steroid for UC, then blood sugars became normal and off insulin. November 2019: blood sugars high, Hemoglobin A1c 7.6, starting metformin XR. February 2020: Metformin decreased to 500mg due to lowerish blood sugars and Hemoglobin A1c 5.09 Jan 2020. August 2021: Restarted metformin August 2021: when blood sugars increasing. Bilateral sensorineural hearing loss 04/04/2018 Overview (06/07/2023): March 2018: formal testing done. Elevated liver function tests 06/30/2017 Overview (06/07/2023): Jun 2017: Hepatology visit [facility], Dr. Kylee Dailey: for elevated liver test and fatty liver, PLAN: MRCP, Liver antibodies and Liver Biopsy. Jun 2022: Bilirubin elevated 2.3 after starting Atorvastatin (Lipitor) but also on Entyvio. Headache syndrome 06/24/2017 Overview (06/07/2023): Jun 2017: Was in emergency room, had HCT. March 2018 ED visit. Negative head CT. Apr 2018: Referral back to Neurology. Chronic midline low back pain with left-sided sc iatica 09/17/2016 Overview (06/15/2017): Overview: Sep 2016: physical therapy ordered. December 2016: MRI shows L2-3 right disk with right nerve compression and L4-5 disc with mild/minor foraminal stenosis. Increased glucose level 03/30/2016 Overview (06/15/2017): Overview: March 2016: ER visit, blood sugar was 593, was on prednisone for UC when blood sugar was this high. A1c 7.6 at [facility] March 2016. Apr 2016: Follow up Hospital, on NPH 30 Units and Correction SS for Novolog insulin with meals. May 2016: off steroid, blood sugars greatly improved and now off insulin. Needs recheck. Sep 2016: A1c 5.1 essentially off all diabetic medications. Ulcerative colitis 03/29/2016 Ulcerative colitis with rectal bleeding 02/20/20 16 History of fatty infiltration of liver Overview (02/15/2016): On US January 2016 Methicillin resistant Staphy lococcus aureus culture positive 02/10/2016 Overview (06/15/2017): Overview: 3 separate positive cultures for MRSA: right wrist, chest and elbow. Nasal Screening culture negative times 2: March 04 and March 16 2014. Overview: 3 separate positive cultures for MRSA: right wrist, chest and elbow. Nasal Screening culture negative times 2: March 04 and March 16 2014. Clostridium difficile diarrhea 02/02/2016 Overview (06/15/2017): Overview: Late January 2016: [facility] admission for dizziness after antibiotics, changed to vancomycin. 02/05/16: Dr. Nation suggested: double vanco to 250mg qid, consider retest for c diff, or referal to [place] or [facility] for fecal transplant?? vs colonoscopy to look for inflammatory bowel? Doesn't want to do repeat colonoscopy with acute Clostridium difficile infection. February 2016: repeat Clostridium difficile test at [facility] negative 02/16/16. March 2016: Recurrence with hospitalization at [facility], on oral vancomycin. Lower abdominal pain 03/24/2015 Overview (06/15/2017): Overview: March 2015: GI consult, Levsin was started. Also constipation. February 2016: Colonoscopy diagnosed with Ulcerative Colitis at [facility]. Overview: March 2015: GI consult, Levsin was started. Also constipation. Adjustment disorder with anxious mood 03/04/2014 Overview (06/15/2017): Overview: February 2014: start sertraline (Zoloft). Stress from work. Patient stopped, not sure if it was helpful. Sep 2016: starting paroxetine. Overview: February 2014: start sertraline (Zoloft). Stress from work. Olecranon bursitis 03/15/2013 Lung mass 12/02/2012 Resolved Problems Problem Noted Date Diagnosed Date Resolved Date Colitis due to Clostridium difficile 02/02/2016 02/20/2016 Overview (02/15/2016): Overview: Late January 2016: [facility] admission for dizziness after antibiotics, changed to vancomycin. 02/05/16: Dr. Nation suggested: double vanco to 250mg qid, consider retest for c diff, or referal to [place] or [facility] for fecal transplant?? vs colonoscopy to look for inflammatory bowel? Doesn't want to do repeat colonoscopy with acute Clostridium difficile infection. Encounters Date Type Department Care Team Description 01/14/2025 2:00 PM CDT - 01/14/2025 2:40 PM [place] [address] [place] [address] Yuan Evans MD Colonoscopy 01/14/2025 1:05 PM CDT - 01/14/2025 11:59 PM CDT Hospital [place] [facility] [place] [address] [place] [address] Yuan Evans MD Discharge Disposition: Home or Self Care 01/10/2025 Telephone [facility] [address] [place] [address] None Outreach 01/03/2025 Orders Only [facility] [address] [place] [phone] Kayode Ivey MD Splenomegaly (Primary Dx) 01/03/2025 MyC Medical Advice [facility] [place] [address] [phone] Bandar Casas [facility] 12/31/2024 MyC Medical Advice [facility] [address] [phone] Mary Lou Abdullahi LPN 12/30/2024 Refill [facility] [address] [phone] Kayode Ivey MD Med Change Request 12/28/2024 MyC Medical Advice [facility] [address] [address] Lilibeth Gamboa, RN 12/28/2024 Telephone [facility] [address] [phone] Lilibeth Gamboa, RN Pt. Information/instru ction (Colonoscopy ) 12/28/2024 MyC Medical Advice [facility] [address] [phone] Jeri Shaffer 12/28/2024 Telephone [facility] [address] [phone] None Procedure (Colonoscopy) 12/26/2024 Telephone [facility] [address] [phone] Kayode Ivey MD Prior Auth - Medication (Budesonide foam) 12/26/2024 Refill [facility] [address] [phone] Kayode Ivey MD Med Change Request 12/24/2024 MyC Medical Advice [facility] [address] [phone] Kayode Ivey MD Ulcerative pancolitis without complication (H) (Primary Dx) 12/22/2024 Orders Only [facility] [address] [place] [address] Srinivas Stern PA-C 12/22/2024 Orders Only [facility] [address] [facility] [address] [place] [address] Malgorzata Acosta Ulcerative colitis with rectal bleeding, unspecified location (H) 12/20/2024 MyC Medical Advice [facility] [address] [place] [phone] Mariajose Dailey, RN FCP 12/15/2024 11:10 AM CDT Lab [facility] [address] [place] [phone] Ulcerative pancolitis without complication (H); Ulcerative colitis with rectal bleeding, unspecified location (H) 12/15/2024 Travel 12/12/2024 MyC Medical Advice [facility] [address] [phone] Bandar Casas RPH Ulcerative colitis with rectal bleeding, unspecified location (H) (Primary Dx) 12/07/2024 MyC Medical Advice [facility] [address] [phone] Bandar Casas RPH 12/05/2024 3:00 PM CDT Virtual Visit [facility] [address] [phone] Srinivas Stern PA-C Williams, Samuel, RPH Ulcerative colitis with rectal bleeding, unspecified location (H) (Primary Dx) 12/05/2024 MyC Medical Advice [facility] [address] [phone] Bandar Casas RPH 11/25/2024 MyC Medical Advice [facility] [address] [phone] Bandar Casas [facility] 11/12/2024 4:15 PM CDT Lab [facility] [place] [address] Ulcerative pancolitis without complication (H) 11/12/2024 Travel 11/12/2024 MyC Medical Advice [facility] [address] [phone] Srinivas Stern PA-C Ulcerative pancolitis without complication (H) (Primary Dx) 10/26/2024 Telephone [facility] [address] [phone] Srinivas Stern PA-C Appointment 10/24/2024 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 [facility] [address] [phone] Kayode Ivey MD Ulcerative pancolitis without complication (H) (Primary Dx) 10/24/2024 MyC Medical Advice [facility] [address] [phone] Kayode Ivey MD 10/23/2024 Travel 10/19/2024 MyC Medical Advice [facility] [address] [phone] Bandar Casas, [facility] entyvio pen cost (resolved) from Last 3 Months Immunizations Immunization Administration Dates Next Due HepB 02/22/2016 Hepatitis B, Adult (Energix-B/Recombivax HB) 06/06/2020,11/19/2019,02/22/2016 Hepatitis B, Peds (Engerix-B/Recombivax HB) 02/22/2016 Influenza Vaccine >6 months,quad, PF 01/2022,06/06/2020,06/25/2019,2017,09/28/2017,06/22/2016,04/26/2016 Pneumococcal 23 valent 04/03/2016 TDAP (Adacel,Boostrix) 04/23/2013 Td (Adult), Adsorbed 01/26/1991 Family History Medical History Relation Comments Colon Polyps Father benign Cerebrovascular Disease Mother aneurysm Colon Polyps Paternal Grandfather benign Relation Status Comments Father Mother Paternal Grandfather Social History Tobacco Use Types Packs/Day Years Used Date Smoking Tobacco: Never Smokeless Tobacco: Never Tobacco Cessation:Counseling Given: Not Answered Alcohol Use Standard Drinks/Week Comments Yes 13 (1 standard drink = 0.6 oz pu re alcohol) MONTHLY PHQ-2 Answer Date Recorded PHQ-2 Score 1 10/24/2024 Adolescent Education Answer Date Record ed Getting School Help Needed Not on file 05/28 Sex and Gender Information Value Date Recorded Sex Assigned at Not on file Legal Sex 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 Gender Identity Not on file Sexual Orientation Not on file 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 Last Filed Vital Signs Vital Sign Reading Time Taken Comments Blood Pressure 133/96 01/14/2025 2:34 PM CDT Pulse 85 01/14/2025 2:34 PM CDT Temperature 36.8 C (98.2 F) 01/14/2025 1:29 PM CDT Respiratory Rate 16 01/14/2025 2:34 PM CDT Oxygen Saturation 95% 01/14/2025 2:34 PM CDT Inhaled Oxygen Concentration - - Weight 118 kg (260 lb 2.3 oz) 01/14/2025 1:29 PM CDT Height 193 cm (6' 4) 12/05/2024 2:37 PM CDT Body Mass Index 31.67 12/05/2024 2:37 PM CDT Plan of Treatment Upcoming Encounters Date Type Department Care Team (Latest Contact Info) Description 02/13/2025 3:20 PM CDT Appointment [facility] [address] [facility] [address] [place] [address] Kayode Ivey MD [address] [place] [phone] 03/07/2025 3:00 PM CDT Ancillary Procedure [facility] [address] [facility] [address] [address] [place] [address] Srinivas Stern PA-C [address] [place] [phone] 04/24/2025 2:40 PM CDT Virtual Visit [facility] [address] [place] [phone] Alexis Torres MD [address] [place], [place] [phone] Srinivas Stern PA-C [address] [place], [place] [phone] 06/05/2025 3:30 PM CDT Virtual Visit [facility] [address] [place] [phone] Kayode Ivey MD [address] [place], [place] [phone] Bandar Casas [place] [address] [facility] [address] [place], [place] [phone] Health Maintenance Due Date Last Done Comments ADVANCE CARE PLANNING 1975 ANNUAL REVIEW OF HM ORDERS [address] CT COLONOGRAPHY 1974 DIABETIC FOOT EXAM 1975 EYE EXAM 1975 FIT 1975 LIPID 1974 MICROALBUMIN 1974 URINE DRUG SCREEN 1974 sDNA (Cologuard) 1974 YEARLY PREVENTIVE VISIT 1977 ZOSTER IMMUNIZATION (1 of 2) 1993 A1C 07/01/2016 03/31/2016, 03/31/2016 Pneumococcal Vaccine: 50+ Years (2 of 2 - PCV) 04/03/2017 04/03/2016 BMP 06/23/2018 06/23/2017, 06/05, 04/03/2016, Additional history exists DTAP/TDAP/TD IMMUNIZATION (3 - Td or Tdap) 04/23/2023 04/23/2013, 01/26/1991 FLEX SIG 04/16/2024 04/16/2019, 04/05, 12/20/2016, Additional history exists COVID-19 Vaccine ( season) 2024 02/05/2022, 10/02/2021, 09/04/2021 INFLUENZA VACCINE (Season Ended) 2025 08/09/2022, 06/06/2020, 06/25/2019, Additional history exists COLONOSCOPY 01/14/2027 01/14/2025, 01/03, 01/14/2025, Additional history exists COLORECTAL CANCER SCREENING 01/14/2027 HIV SCREENING Completed 03/04/2014 HEPATITIS B IMMUNIZATION Completed 020, 11/19/2019, 02/22/2016, Additional history exists PHQ-2 (once per calendar year) Completed 10/24/2024, 05/16/2024, 10/25/2023, Additional history exists HEPATITIS C SCREENING Completed 11/01/2024 , 11/01/2024, 06/15/2022, Additional history exists HPV IMMUNIZATION Aged Out No longer e ligible based on patient's age to complete this topic MENINGITIS IMMUNIZATION Aged Out No l onger eligible based on patient's age to complete this topic Procedures Procedure Name Priority Date/Time Associated Diagnosis Comments COLONOSCOPY, WITH POLYPECTOMY AND BIOPSY 01/14/2025 1:57 PM CDT Ulcerative pancolitis without complication (H) COLONOSCOPY 01/14/2025 1:57 PM CDT Ulcerative pancolitis without complication (H) COLONOSCOPY Routine 01/14/2025 1:48 PM CDT GLUCOSE BY METER Routine 01/14/2025 1:37 PM CDT CALPROTECTIN FECES Routine 12/21/2024 5: 00 PM CDT Ulcerative colitis with rectal bleeding, unspecified location (H) CBC WITH PLATELETS & DIFFERENTIAL Routine 12/15/2024 11:17 AM CDT Ulcerative pancolitis without complication (H) CBC WITH PLATELETS AND DIFFERENTIAL Routine 12/15/2024 11:17 AM CDT Ulcerative pancolitis without complication (H) VEDOLIZUMAB LEVEL AND ANTIBODIES Routine 12/15/2024 11:17 AM CDT Ulcerative colitis with rectal bleeding, unspecified location (H) HEPATIC FUNCTION PANEL Routine 12/15/2024 11:17 AM CDT Ulcerative pancolitis without complication (H) CRP INFLAMMATION Routine 12/15/2024 11:1 7 AM CDT Ulcerative pancolitis without complication (H) ENTERIC BACTERIA AND VIRUS PANEL BY PCR Routine 11/15/2024 6:00 PM CDT Ulcerative pancolitis without complication (H) CBC WITH PLATELETS & DIFFERENTIAL Routine 11/12/2024 4:27 PM CDT Ulcerative pancolitis without complication (H) CBC WITH PLATELETS AND DIFFERENTIAL Routine 11/12/2024 4:27 PM CDT Ulcerative pancolitis without complication (H) HEPATIC FUNCTION PANEL Routine 11/12/2024 4:27 PM CDT Ulcerative pancolitis without complication (H) CRP INFLAMMATION Routine 11/12/2024 4:27 PM CDT Ulcerative pancolitis without complication (H) FLEXIBLE SIGMOIDOSCOPY - HIM SCAN 04/16/2019 12:00 AM CDT BASIC METABOLIC PANEL STAT 06/23/2017 7:35 AM CDT HEPATITIS C ANTIBODY Routine 03/24/2017 3:43 PM CDT Elevated liver enzymes Elevated liver function tests HEMOGLOBIN A1C Routine 03/31/2016 7:51 AM CDT from Last 3 Months or Most Recently Relevant to Health Maintenance Results * COLONOSCOPY (01/14/2025 1:48 PM CDT) [facility] Patient Name: Igor Flores Procedure Date: 01/14/2025 1:48 PM Date of : 1975 Admit Type: Outpatient Age: 49 Gender: Male Note Status: Finalized Attending MD: YUAN EVANS MD, Instrument Name: [id number] Procedure: Colonoscopy Indications: Disease activity assessment of [...] bowel preparation was evaluated using the BBPS (Carson Bowel Preparation Scale) with scores of: Right [...] RADIOLOGY RESULTS 01/14/2025 1:48 PM CDT us Kayodemarquise Ivey MD PROCEDURES Final Res ult RADIOLOGY RESULTS * Glucose by meter (01/14/2025 1:37 PM CDT) GLUCOSE BY METER POCT 94 70 - 99 mg/dL 01/14/2025 1:48 PM CDT [facility] P[facility] Blood, venous BLOOD SPECIMEN / Unknown 01/14/2025 1:37 PM CDT 01/14/2025 1:48 PM CDT us Yuan Evans MD LAB - BEAKER POCT F inal Result [facility] - [address] Lab, [place] [address], [facility] * (ABNORMAL) Calprotectin Feces (12/21/2024 5:00 PM [...] [facility] SPECIALTY CORE/PROT/ENDO UM Specialty Core/Prot/Endo [address] [facility] [address] [facility], Room [address] * Vedolizumab Level and Antibodies (12/15/2024 [...] ORDERABLES Ed ited Result - Final MADAI HERNANDEZ [address] [place] [address], [facility] [phone] * CBC with platelets and differential (12/15/2024 11:17 AM CDT) Only the most recent of2 resultswithin the time period is included. WBC Count 6.4 4.0 - 11.0 10e3/uL [...] LAB - BLOOD ORDERABLES Chika arias Result LABORATORY [facility] [address] Lab (1st floor, no room number) [place] [address], [facility] * (ABNORMAL) Hepatic function panel (12/15/2024 11:17 AM CDT) Only the most recent of2 resultswithin the time period is included. Protein Total 6.7 6.4 - 8.3 g/dL [...] AM CDT 12/15/2024 11:19 AM CDT Srinivas Stern PA-C LAB - BLOOD ORDERABLES Chika l Result [facility] [address] Lab (1st floor, no room number) [place] [address] * CRP inflammation (12/15/2024 11:17 AM CDT) Only the most recent of2 resultswithin the time period is included. CRP Inflammation <3.00 <5.00 mg/L 12/16/19 11:39 AM CDT LABORATORY Blood STRUCTURE OF LEFT HAND / Unknown Venipuncture / Unknown 12/15/2024 11:17 AM CDT 12/15/2024 11:19 AM CDT Srinivas Stern PA-C LAB - BLOOD ORDERABLES Chika l Result [facility] [address] Lab (1st floor, no room number) [place] [address] * Enteric Bacteria and Virus Panel PCR (11/15/2024 6:00 PM CDT) Campylobacter species Negative Negative 11/16/2024 7:55 PM CDT [facility] Salmonella species Negative Negative 2024 7:55 PM CDT [facility] Vibrio species Negative Negative 11/16/2024 7:55 PM CDT [facility] Vibrio cholerae Negative Negative 7:55 PM CDT [facility] Yersinia enterocolitica Negative Negative 11/16/2024 7:55 PM CDT [facility] Enteropathogenic E. coli (EPEC) Negative Negative, NA 11/16/2024 7:55 PM CDT [facility] Shiga-like toxin-producing E. coli (STEC) Negative Negative 11/16/2024 7:55 PM CDT [facility] Shigella/Enteroinvas angeli E. coli (EIEC) Negative Negative 11/16/2024 7:55 PM CDT [facility] Cryptosporidium species Negative Negative 11/16/2024 7:55 PM CDT [facility] Giardia lamblia Negative Negative 7:55 PM CDT [facility] Norovirus Gl/Gll Negative Negative 11/17/19 7:55 PM CDT [facility] Rotavirus A Negative Negative 11/16/2024 7:55 PM CDT [facility] Plesiomonas shigelloides Negative Negative 11/16/2024 7:55 PM CDT [facility] Enteroaggregative E. coli (EAEC) Negative Negative 11/16/2024 7:55 PM CDT [facility] Enterotoxigenic E. coli (ETEC) Negative Negative 11/16/2024 7:55 PM CDT [facility] E. coli O157 NA Negative, NA 11/16/2024 7:55 PM CDT [facility] Cyclospora cayetanensis Negative Negative 11/16/2024 7:55 PM CDT [facility] Entamoeba histolytica Negative Negative 11/16/2024 7:55 PM CDT [facility] Adenovirus F40/41 Negative Negative 025 7:55 PM CDT [facility] Astrovirus Negative Negative 11/16/2024 7:55 PM CDT [facility] Sapovirus Negative Negative 11/16/2024 7:55 PM CDT [facility] Stool RECTAL CONTENTS / Unknown Non-blood Collection / Unknown 11/15/2024 6:00 PM CDT 11/16/2024 4:33 PM CDT Narrative [facility] - 11/16/2024 7:55 PM CDT Assay performed using the FDA-cleared FilmArray GI Panel from [employer] A negative result should not rule out infection in patients with a probability for gastrointestinal infection. The assay does not test for all potential infectious agents of diarrheal disease. Positive results do not distinguish between a viable or replicating organism and the presence of a nonviable organism or nucleic acid, nor do they exclude the possibility of coinfection by organisms not in the panel. Results are intended to aid in the diagnosis of illness and are meant to be used in conjunction with other clinical findings. This test has been verified and is performed by the Infect[facility] Diagnostic [facility] at [facility]. This laboratory is certified under the Clinical Laboratory Improvement Amendments of 1988 (CLIA-88) as qualified to perform high complexity clinical laboratory testing. us Srinivas Stern PA-C LAB - MICRO GENERAL ORDERAB LES Final Result [facility] Inf. Diseases Diag. Lab [address] [facility], [address] [place] [address] * FLEXIBLE SIGMOIDOSCOPY - HIM SCAN (04/16/2019 12:00 AM CDT) 04/16/2019 us Provider Outside PROCEDURES Final Result * (ABNORMAL) Basic metabolic panel (06/23/2017 7:35 AM CDT) Sodium 140 133 - 144 mmol/L 06/23/2017 8:09 AM CDT [facility] Potassium 4.0 3.4 - 5.3 mmol/L 06/23/2017 8:09 AM T [facility] Chloride 109 94 - 109 mmol/L 06/23/2017 8:09 AM T [facility] Carbon Dioxide 26 20 - 32 mmol/L 06/23/2017 8:09 AM T [facility] Anion Gap 5 3 - 14 mmol/L 06/23/2017 8:09 AM T [facility] Glucose 117(H) 70 - 99 mg/dL 06/23/2017 8:09 AM CDT [facility] Urea Nitrogen 9 7 - 30 mg/dL 06/23/2017 8:09 AM CDT [facility] Creatinine 0.82 0.66 - 1.25 mg/dL 06/23/2017 8:09 AM T [facility] GFR Estimate >90 >60 mL/min/1.7 m2 06/23/2017 8:09 AM T [facility] Comment:Non GFR Calc GFR Estimate If Black >90 >60 mL/min/1.7 m2 06/23/2017 8:09 AM T [facility] Comment: GFR Calc Calcium 8.6 8.5 - 10.1 mg/dL 06/23/2017 8:09 AM T [facility] Blood specimen (specimen) 06/23/2017 7:35 AM CDT 06/23/2017 7:46 AM CDT us [address] MD LAB - BLOOD ORDERABLES Final R esult [facility] [address] [phone] * Hepatitis C antibody (03/24/2017 3:43 PM CDT) Pathologist [facility] Hepatitis C Antibody Nonreactive Assay performance characteristics have not been established for newborns, infants, and children NR [facility] Blood specimen (specimen) 03/24/2017 3:43 PM CDT 03/24/2017 3:45 PM CDT us Kayode Ivey MD LAB - BLOOD ORDERABLES Fi nal Result [facility] [address] [place] [address] * (ABNORMAL) Hemoglobin A1c (03/31/2016 7:51 AM CDT) Pathologist [facility] Hemoglobin A1C 8.0(H) 4.3 - 6.0 % [facility] Blood specimen (specimen) 03/31/2016 7:51 AM CDT 03/31/2016 7:56 AM CDT us Antonio Powers MD LAB - BLOOD ORDERABLES Final R esult [facility] [address] [place] [address] from Last 3 Months or Most Recently Relevant to Health Maintenance Additional Health Concerns Infection Onset Date Last Indicated MRSA-Contact Isolation Comment: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, chest, and elbow 02/17/2016 02/17/2016 Insurance BCBS OUT OF STATE none (Work) [id number] [place] [address] BCBS OUT OF STATE * Guarantor: Igor Flores Account Type Relation to Patient Date of Phone Billing Address Medication Therapy Self 1975 [id number] [phone] BCBS OUT OF STATE Advance Directives For more information, please contact: [phone] * Full Code (Latest Code Status on File) Date Activated Date Inactivated Comments 04/03/2016 2:17 PM * Full Code Date Activated Date Inactivated Comments 03/29/2016 9:57 PM 04/03/2016 2:17 PM * Full Code Date Activated Date Inactivated Comments 02/22/2016 3:26 PM 03/29/2016 9:57 PM * Full Code Date Activated Date Inactivated Comments 02/16/2016 6:02 AM 02/22/2016 3:26 PM Care Teams Sample Examiner Relationship Specialty Start Date End Date Jairo Vasquez MD PCP - General Family Medicine - Sports Medicine 12/29/15 Kylee Dailey MD [address] [place] [address] [phone] Internal Medicine 04/01/17 Kayode vIey MD [address] [place] [address] 111015 Gastroenterology 04/01/17 Nicolasa Perez APRN CNP 909 [facility] [id number] [place], [place] 330805 Nurse Practitioner Nurse Practitioner 04/28/17 Srinivas Stern PA-C [address] [place], [place] [phone] Physician Unix System Administrator Physician Unix System Administrator 10/02/18 Srinivas Stern PA-C [address] [place], [place] 592105 Assigned Gastroenterology Provider 07/17/22 Bandar Casas RPH 420 [facility] 812 [place], [place] [phone] Pharmacist Pharmacist 08/18/23 Bandar Casas RPH 420 [facility] 812 [place], [place] 034405 Assigned MTM Pharmacist 08/27/23 Ayana Zhang PA-C [address] [place] [address] Physician Unix System Administrator Rheumatology 04/16/24
[2025-01-15 15:52] VITALS: BP 147/97; PULSE 98; RESP 18; TEMP 36.4; O2SAT 96; BMI 32.1
--- NOTE | 2025-01-15 17:11 | ED_ITS ---
HPI - General Adult General Date Seen: 01/15/25 Chief complaint: Dizziness/Vertigo Stated complaint: L side pain under ribcage Time Seen by Provider: 01/15/25 16:05 History of Present Illness HPI narrative: Patient is a 49-year-old male here for evaluation of fatigue. He notes several months worth of unusual fatigue, he has also been having a number of other symptoms including some upper abdominal left chest and shoulder discomfort which has been pretty well worked up at this point, he tells me that he has had a stress test, upper endoscopy, and at this point is scheduled to see a thoracic outlet specialist to rule out thoracic outlet syndrome. He has been to see his primary doctor multiple times, he has had a colonoscopy just yesterday by his house shorer as he he does have a diagnosis of ulcerative colitis. He has been seen in an urgent care in [place] as well as at [facility] for these symptoms. He has had an abdominal CT scan which he says showed mild splenomegaly and also a spot on his kidney. He acknowledges anxiety about all of these symptoms, he says his primary doctor did talk with him about anxiety and set up a video visit for him if he wanted with someone to address that but he has not done that yet. He did discuss his CT findings with his house shorer who recommended an abdominal ultrasound to further evaluate those findings and that is set up for February 13. He was prescribed hydroxyzine by his primary doctor and he has taken out a couple of times but he says it just makes him feel kind of zoned out. He is not taking anything else for anxiety. It does not sound like there is anything particularly different going on today, he says that he finished up his workday and felt completely wiped out like he wanted to go home and take a nap. He is frustrated that he feels somewhat more tired than he is used to, he says he worries on a daily basis that this is due to cancer, despite the fact that his tests have not shown anything worrisome. He seems fairly focused on the mild splenomegaly, he says he has been doing lot of research on the Internet and cancer always seems to come up. He denies any significant changes in his weight, he has not had any night sweats, he does not smoke, denies significant alcohol use. Longstanding history of ulcerative colitis which he says is well controlled on Entiveo, he notes type 2 diabetes which he controls with metformin and insulin, he says this came on after a significant bout of ulcerative colitis requiring long-term steroids. He also takes amlodipine due to a finding of mild ascending aortic aneurysm. He has seen a sales planning manager for this and this will be followed annually. Related Data Home Medications ?Medication ?Instructions ?Recorded ?Confirmed amlodipine 5 mg tablet 5 mg PO DAILY blood pressure 09/17/24 09/17/24 cyclobenzaprine 10 mg tablet mg PO 09/17/24 insulin glargine 100 unit/mL (3 30 - 32 unit subcut QPM 09/17/24 09/17/24 mL) subcutaneous pen (Lantus Solostar U-100 Insulin) metformin 500 mg tablet,extended 1,500 mg PO DAILY diabetes mellitus 09/17/24 09/17/24 release 24 hr pen needle, diabetic 32 gauge x 09/17/24 09/17/24 5/32 (BD Mireya 2nd Gen Pen Needle) Allergies Allergy/AdvReac Type Severity Reaction Status Date / Time sulfamethoxazole (From Allergy Intermediate Rash Unverified 09/17/24 15:46 Bactrim) trimethoprim (From Bactrim) Allergy Intermediate Rash Unverified 09/17/24 15:46 Sulfa (Sulfonamide Allergy Unknown Unverified 09/17/24 15:46 Antibiotics) Review of Systems Status of ROS: Reports: 10 or more systems reviewed and unremarkable except as noted in History and below Exam Narrative: Exam Narrative: Vital signs reviewed In general, alert, nontoxic mid age male. He is breathing easily, looks comfortable. Head: Normocephalic, atraumatic. Eyes: Sclera clear. Pupils equal and reactive. ENT: Mucous membranes moist. Neck: Supple without adenopathy. Heart: Regular rate and rhythm without murmur. Lungs: Clear. No increased work of breathing, crackles or wheezes. Abdomen: Soft, nontender to palpation. No organomegaly. Extremities: Well perfused, pulses intact. No significant edema. Neurologic: Alert, conversant. Speech fluent, face symmetric. Moves all extremities equally. Skin: Warm, dry well perfused. Affect: Normal. Const: Vital Signs, click to edit/add: Vital Signs - 24 hr 01/15/25 15:52 Temperature 97.6 F Pulse Rate [Pulse Oximeter] 98 Respiratory Rate 18 Blood Pressure [Ri ght Upper Arm] 147/97 H Pulse Oximetry 96 Oxygen Delivery Me thod Room Air Course Course ED Course: I sent a long time talking with him about his symptoms. He has clearly had quite a bit of evaluation and multiple visits to multiple physicians for these symptoms, and I discussed with him I think it is relatively unlikely that I will have answers for him today. He has not had blood work checked it sounds like in over a month, so we did decide to do some basic lab tests, I also did an EKG which shows a normal sinus rhythm, ventricular rate of 88, unremarkable corrected QT at [address] segment changes, unremarkable T-waves. Discussed with him that I have low suspicion of cancer as a cause for his symptoms given that he has been having difficulties now for many months and we are not seeing anything show up on imaging or labs. I do think anxiety is contributing to some degree to his feeling poorly, and I really encouraged him to talk with someone about better management of anxiety symptoms. Labs are reviewed and unremarkable. He has mild elevations of transaminases, I believe unrelated to his current symptoms. CRP mildly elevated at 1.8 nonspecific. TSH normal, electrolytes normal, creatinine 0.8. Reviewed all this with him. Follow-up as outlined above. Will likely need primary care follow-up after all of this to reassess how he is doing. Vital Signs Vital signs: Initial Vital Signs Temperature 97.6 F 01/15/25 15:52 Temperature Source Temporal Artery Scan 01/15/25 15:52 Pulse Rate 98 01/15/25 15:52 Pulse Rhythm Regular 01/15/25 15:52 Respiratory Rate 18 01/15/25 15:52 Blood Pressure 147/97 H 01/15/25 15:52 Blood Pressure Mean 113 H 01/15/25 15:52 Blood Pressure Position Sitting 01/15/25 15:52 Pulse Oximetry 96 01/15/25 15:52 Oxygen Delivery Method Room Air 01/15/25 15:52 Vital Signs Temperature 97.6 F 01/15/25 15:52 Pulse Rate 98 01/15/25 15:52 Respiratory Rate 18 01/15/25 15:52 Blood Pressure 147/97 H 01/15/25 15:52 Pulse Oximetry 96 01/15/25 15:52 Oxygen Delivery Method Room Air 01/15/25 15:52 Temperature 97.6 F 01/15/25 15:52 Pulse Rate 98 01/15/25 15:52 Respiratory Rate 18 01/15/25 15:52 Blood Pressure 147/97 H 01/15/25 15:52 Pulse Oximetry 96 01/15/25 15:52 Oxygen Delivery Method Room Air 01/15/25 15:52 Medical Decision Making Lab Data Lab results reviewed: Yes I reviewed the patient's lab results Labs: Lab Results 01/15/25 01/15/25 Range/Units 16:40 17:13 WBC 6.17 (4.50-11.00) K/uL RBC 4.75 (4.30-5.90) m/uL Hgb 14.7 (13.5-17.5) gm/dL Hct 40.6 (37.0-53.0) % MCV 86 (80-100) fL MCH 31 (26-34) pg MCHC 36 (32-36) gm/dL RDW Coeff of Nisa 12.9 (11.5-15.5) % Plt Count 204 (140-440) K/uL Neut % (Auto) 54.8 (42.0-72.0) % Lymph % (Auto) 36.3 (20-44) % Elmore % (Auto) 6.5 (0.0-11.0) % Eos % (Auto) 1.9 (0.0-7.0) % Baso % (Auto) 0.3 (0.0-3.0) % Neut # (Auto) 3.38 (1.7-7.0) K/uL Lymph # (Auto) 2.24 (0.90-2.90) K/uL Elmore # (Auto) 0.40 (0.00-0.90) K/UL Eos # (Auto) 0.12 (0.00-0.50) K/uL Baso # (Auto) 0.02 (0.00-0.30) K/uL Abs Immat Gran (auto) 0.01 (0.00-0.30) K/uL Imm/Tot Granulo (auto) 0.2 % Sodium 142 (135-149) mmol/L Potassium 3.8 (3.6-5.1) mmol/L Chloride 108 (96-114) mmol/L Carbon Dioxide 25 (20-32) mmol/L Anion Gap 9 (7-15) mEq/L BUN 14 (7-30) mg/dL Creatinine 0.8 (0.5-1.5) mg/dL Estimated Creat Clear 135.63 Estimated GFR 108 ml/min Glucose 123 H (60-115) mg/dL Calcium 9.5 (8.4-10.6) mg/dL Magnesium 2.2 (1.5-2.6) mg/dL Total Bilirubin 1.6 H (0.1-1.5) mg/dL Direct Bilirubin 0.4 (0.0-0.5) mg/dL AST 42 H (12-35) U/L ALT 56 H (4-50) U/L Alkaline Phosphatase 56 (40-150) U/L C-Reactive Protein 1.8 H (0.5-1.0) mg/dL Total Protein 7.1 (6.0-8.3) g/dL Albumin 4.7 (3.3-5.0) g/dL TSH 0.881 (0.270-4.200) uIU/mL POC Troponin I 0.01 (0.01-0.04) ng/ml Discharge Plan Discharge Clinical Impression: Fatigue, Anxiety Patient Disposition: Home, Self-Care Condition: Stable Instructions: Fatigue (ED), Anxiety (ED) Additional Instructions: Follow-up as previously discussed for your ultrasound and with the thoracic outlet specialist. Your lab work today all looks good. You have very mild elevations of your transaminases, liver enzymes, which is very nonspecific and very common for people who eat a standard [place] diet. This is unlikely to be related to your symptoms. I would strongly recommend that you follow through with video visit to discuss anxiety management as well. Prescriptions: No Action cyclobenzaprine 10 mg tablet PO amlodipine 5 mg tablet 5 mg PO DAILY metformin 500 mg tablet extended release 24 hr 1,500 mg PO DAILY insulin glargine [Lantus Solostar U-100 Insulin] 100 unit/mL (3 mL) insulin pen 30 - 32 unit subcut QPM (DME) pen needle, diabetic [BD Mireya 2nd Gen Pen Needle] 32 gauge x 5/32 needle MISCELLANEOUS Patient Comments: PLEASE SEE ATTACHED FOR DETAILED DIRECTIONS Follow Up/Referrals: Jairo Vasquez MD [Primary Care Provider] - Stand Alone Forms: [facility] Info Instructions
--- OUTSIDE RECORDS SUMMARY | 2025-01-15 17:23 | XMS_ITS | Encounter Summary ---
Author Organization [facility] Address [address] [place] [address] Care Team Providers Care Bus Matron Name Role Phone Jairo Vasquez MD Primary Care Provider [phone] Kylee Dailey MD Unavailable + Kayode Ivey MD Unavailable [phone] Nicolasa Perez APRN CROP FARM HELPER Unavaila ble Loyda Dickey RN Unavailable [phone] Srinivas Stern PA-C Unavailable [phone] Srinivas Stern PA-C Unavailable [phone] Violet Ta [facility] Unavailable [phone] Sue Mckeon [facility] Unavailable [phone] Karen Trinh MD Unavailable [phone] Violet Ta [facility] Unavailable [phone] Violet Ta [facility] Unavailable [phone] Srinivas Stern PA-C Unavailable [phone] Bandar Casas [facility] Unavailable [phone] Bandar Casas [facility] Unavailable Ayana Zhang PA-C Unavailable [phone] Srinivas Stern PA-C Unavailable Encounter Details Date Type Department Care Team (Late st Contact Info) Description 03/19/2017 MyC Medical Advice [facility] [address] [place] [phone] Kayode Ivey MD 6 [place] [address] Social History Tobacco Use Types Packs/Day Years Used Date Smoking Tobacco: Never Alcohol Use Standard Drinks/Week Comments No 0 (1 standard drink = 0.6 oz pur e alcohol) not currently Sex and Gender Information Value Date Recorded Sex Assigned at Not on file 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 Gender Identity Not on file Sexual Orientation Not on file 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 Plan of Treatment Upcoming Encounters Date Type Department Care Team (Latest Contact Info) Description 02/13/2025 3:20 PM CDT Appointment [facility] [address] [facility] [address] [place] [phone] Kayode Ivey MD 6 [place] [address] 03/07/2025 3:00 PM CDT Ancillary Procedure [address] [place] [address] Srinivas Stern PA-C [address] [place] [address] [phone] 04/24/2025 2:40 PM CDT Virtual Visit [facility] G[facility] [address] [address] Alexis Torres MD 420 [place] [address] Srinivas Stern PA-C 909 [place], [place] [phone] 06/05/2025 3:30 PM CDT Virtual Visit Viola MADERA MTM [address] [facility] [address] 2nd [place] [phone] Kayode Ivey MD 516 [place] [address] Bandar Casas, [facility] 420 [facility] 812 [place], [place] [phone] documented as of this encounter Visit Diagnoses Not on filedocumented in this encounter Additional Health Concerns Infection Onset Date Last Indicated Resolved Time MRSA-Contact Isolation Comment: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, chest, and elbow 02/17/2016 02/17/2016 Rule Out C-difficile 10/04/2023 10/05/2023 024 7:28 PM RETAIL WORKER C-difficile 10/05/2023 10/05/2023 11/04/2023 11:3 9 PM RETAIL WORKER Rule Out C-difficile 09/03/2024 09/04/2024 025 12:45 PM RETAIL WORKER Assessment Noted Time PHQ-9 Depression Total Score: 9 03/02/20 16 7:16 AM CDT documented as of this encounter Care Teams Bus Matron Relationship Specialty Start Date End Date Jairo Vasquez MD PCP - General Family Medicine - Sports Medicine 12/29/15 Kylee Dailey MD [address] [place] [address] [address] [place] [address] Internal Medicine 04/01/17 Kayode Ivey MD [address] [place] [address] Gastroenterology 04/01/17 Nicolasa Perez APRN CROP FARM HELPER [address] [place] [address] [id number] [place], [place] 596165 Nurse Practitioner Nurse Practitioner 04/28/17 Loyda Dickey RN Nurse Coordinator Neurology 05/26/17 02/26/19 Srinivas Stern PA-C [address] [place] [address] [phone] Physician Yard Worker Physician Yard Worker 10/02/18 Srinivas Stern PA-C [address] [place] [address] [phone] Assigned Heart and Vascular Provider 11/19/20 06/27/21 Violet Ta [facility] [address] [place] [address] Pharmacist Pharmacist 12/29/20 02/08/21 Sue Mckeon [facility] [address] [place] [address] [phone] Pharmacist Pharmacist Virtualization Architect 02/09/21 06/29/22 Karen Trinh MD [address] [place] [address] [phone] Assigned Infectious Disease Provider 02/08/21 07/30/22 Violet Ta [facility] [address] [place] [address] [phone] Assigned MTM Pharmacist 02/27/22 05/21/22 Violet Ta [facility] [address] [place] [address] [address] [place] [address] Assigned MTM Pharmacist 06/02/22 07/09/22 Srinivas Stern PA-C 909 [place] [address] Assigned Gastroenterology Provider 07/17/22 Bandar Casas RPH [address] [address] Pharmacist Pharmacist 08/18/23 Bandar Casas RPH [address] [place] [address] Assigned MTM Pharmacist 08/27/23 Ayana Zhang PA-C [address] [place] [address] Physician Yard Worker Rheumatology 04/16/24 Srinivas Stern PA-C [address] [place] [address] Home Infusion Following Provider Gastroenterology 07/11/24 10/05/24 documented as of this encounter
--- OUTSIDE RECORDS SUMMARY | 2025-01-15 17:23 | XMS_ITS | Encounter Summary ---
Author Organization [facility] Address [address] [place] [address] Care Team Providers Care Lead Sustainability Specialist Name Role Phone Jairo Vasquez MD Primary Care Provider [phone] Kylee Dailey MD Unavailable + Kayode Ivey MD Unavailable [phone] Nicolasa Perez APRN PORK CUTLET MAKER Unavaila ble Loyda Dickey RN Unavailable [phone] Srinivas Stern PA-C Unavailable [phone] Srinivas Stern PA-C Unavailable +[phone] Violet Ta [facility] Unavailable [phone] Sue Mckeon [facility] Unavailable [phone] Karen Trinh MD Unavailable +[phone] Violet Ta [facility] Unavailable [phone] Violet Ta [facility] Unavailable [phone] Srinivas Stern PA-C Unavailable +[phone] Bandar Casas [facility] Unavailable [phone] Bandar Casas [facility] Unavailable [phone] Ayana Zhang PA-C Unavailable [phone] Srinivas Stern PA-C Unavailable Encounter Details Date Type Department Care Team (Late st Contact Info) Description 08/29/2017 MyC Medical Advice [facility]ology [facility] [address] [phone] Kylee Dailey MD [address] 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 [address] [place] [address] Kayode Ivey MD 6 [place] [address] 03/07/2025 3:00 PM CDT Ancillary Procedure [address] [place] [address] Srinivas Stern PA-C 9 [place], [place] [address] 04/24/2025 2:40 PM CDT Virtual Visit [facility] [address] 4th [place] [address] Alexis Torres MD 420 [place] [address] Srinivas Stern PA-C 909 [place], [place] [phone] 06/05/2025 3:30 PM CDT Virtual Visit Viola MADERA [facility] 909 [facility] 2nd [place] [phone] Kayode Ivey MD 516 [place] [address] Bandar Casas, [facility] 420 [facility] 812 [place] [address] documented as of this encounter Visit Diagnoses Not on filedocumented in this encounter Additional Health Concerns Infection Onset Date Last Indicated Resolved Time MRSA-Contact Isolation Comment: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, chest, and elbow 02/17/2016 02/17/2016 Rule Out C-difficile 10/04/2023 10/05/2023 024 7:28 PM COMPUTER SALESPERSON RETAIL C-difficile 10/05/2023 10/05/2023 11/04/2023 11:3 9 PM COMPUTER SALESPERSON RETAIL Rule Out C-difficile 09/03/2024 09/04/2024 025 12:45 PM COMPUTER SALESPERSON RETAIL Assessment Noted Time PHQ-9 Depression Total Score: 9 03/02/20 16 7:16 AM CDT documented as of this encounter Care Teams Lead Sustainability Specialist Relationship Specialty Start Date End Date Jairo Vasquez MD PCP - General Family Medicine - Sports Medicine 12/29/15 Kylee Dailey MD [address] [place] [address] [address] [place], [place] [phone] Internal Medicine 04/01/17 Kayode Ivey MD [address] [place] [address] Gastroenterology 04/01/17 Nicolasa Perez APRN PORK CUTLET MAKER [address] [place] [address] [id number] [place], [place] 817375 Nurse Practitioner Nurse Practitioner 04/28/17 Loyda Dickey RN Nurse Coordinator Neurology 05/26/17 02/26/19 Srinivas Stern PA-C [address] [place] [address] Physician Concrete Pipe Machine Operator Physician Concrete Pipe Machine Operator 10/02/18 Srinivas Stern PA-C [address] [place] [address] Assigned Heart and Vascular Provider 11/19/20 06/27/21 Violet Ta [facility] [address] [place] [address] Pharmacist Pharmacist 12/29/20 02/08/21 Sue Mckeon [facility] [address] [place] [address] [phone] Pharmacist Pharmacist Phosphoric Acid Supervisor 02/09/21 06/29/22 Karen Trinh MD [address] [place] [address] [phone] Assigned Infectious Disease Provider 02/08/21 07/30/22 Violet Ta [facility] [address] [place] [address] 96 [place], [place] [phone] Assigned MTM Pharmacist 02/27/22 05/21/22 Violet Ta [facility] 480 [facility] [address] [place] [address] Assigned MTM Pharmacist 06/02/22 07/09/22 Srinivas Stern PA-C [address] [place] [address] Assigned Gastroenterology Provider 07/17/22 Bandar Casas RPH 420 [facility] 812 [place] [address] Pharmacist Pharmacist 08/18/23 Bandar Casas RP [address] [address] Assigned MTM Pharmacist 08/27/23 Ayana Zhang PA-C [address] [place] [address] Physician Concrete Pipe Machine Operator Rheumatology 04/16/24 Srinivas Stern PA-C 909 [place] [address] Home Infusion Following Provider Gastroenterology 07/11/24 10/05/24 documented as of this encounter
--- OUTSIDE RECORDS SUMMARY | 2025-01-15 17:23 | XMS_ITS | Encounter Summary ---
Author Organization [place] Address [address] [place] [address] Care Team Providers Care Journeyman Millwright Name Role Phone Jairo Vasquez MD Primary Care Provider [phone] Kylee Dailey MD Unavailable + Kayode Ivey MD Unavailable +[phone] Nicolasa Perez APRN SOLAR DESIGN ENGINEER Unavaila ble Loyda Dickey RN Unavailable +[phone] Srinivas Stern PA-C Unavailable +[phone] Srinivas Stern PA-C Unavailable +[phone] Violet Ta [facility] Unavailable +[phone] Sue Mckeon [facility] Unavailable [phone] Karen Trinh MD Unavailable +[phone] Violet Ta [facility] Unavailable +[phone] Violet Ta [facility] Unavailable +[phone] Srinivas Stern PA-C Unavailable +[phone] Bandar Casas [facility] Unavailable +[phone] Bandar Casas [facility] Unavailable Ayana Zhang PA-C Unavailable [phone] Srinivas Stern PA-C Unavailable Encounter Details Date Type Department Care Team (Late st Contact Info) Description 08/02/2017 MyC Medical Advice [facility] Neurology [address] [place] [address] 3rd [place] [address] Gertrudis Melton, RN Social History Tobacco Use Types Packs/Day Years Used Date Smoking Tobacco: Never Smokeless Tobacco: Never Alcohol Use Standard Drinks/Week Comments Yes 13 (1 standard drink = 0.6 oz pu re alcohol) MONTHLY Sex and Gender Information Value Date Recorded Sex Assigned at Not on file Legal Sex 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 CONTEMPORARY OR MODERN DANCER Gender Identity Not on file Sexual Orientation Not on file 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 Plan of Treatment Upcoming Encounters Date Type Department Care Team (Latest Contact Info) Description 02/13/2025 3:20 PM CDT Appointment [facility] Specialty Care Center Imaging [address] [facility] [address] [place] [address] Kayode Ivey MD [address] [place] [address] 03/07/2025 3:00 PM CDT Ancillary Procedure [address] [place] [address] Srinivas Stern PA-C [address] [place] [address] 037045 04/24/2025 2:40 PM CDT Virtual Visit [facility] [address] 4th [place] [address] Alexis Torres MD 420 [place], [place] 381435 Srinivas Stern PA-C [address] [place] [address] [phone] 06/05/2025 3:30 PM CDT Virtual Visit [facility] MTM [address] 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, chest, and elbow 02/17/2016 02/17/2016 Rule Out C-difficile 10/04/2023 10/05/2023 024 7:28 PM CONTEMPORARY OR MODERN DANCER C-difficile 10/05/2023 10/05/2023 11/04/2023 11:3 9 PM CONTEMPORARY OR MODERN DANCER Rule Out C-difficile 09/03/2024 09/04/2024 025 12:45 PM CONTEMPORARY OR MODERN DANCER Assessment Noted Time PHQ-9 Depression Total Score: 9 03/02/20 16 7:16 AM CDT documented as of this encounter Care Teams Journeyman Millwright Relationship Specialty Start Date End Date Jairo Vasquez MD PCP - General Family Medicine - Sports Medicine 12/29/15 Kylee Dailey MD [address] [place] [address] [address] [place], [place] 325045 Internal Medicine 04/01/17 Kayode Ivey MD 6 [place], [place] 703765 Gastroenterology 04/01/17 Nicolasa Perez APRN SOLAR DESIGN ENGINEER [address] [place] [address] [id number] [place], [place] 145405 Nurse Practitioner Nurse Practitioner 04/28/17 Loyda Dickey, RN Nurse Coordinator Neurology 05/26/17 02/26/19 Srinivas Stern PA-C [address] [place] [address] 463455 Physician Tennis Centre Manager Physician Tennis Centre Manager 10/02/18 Srinivas Stern PA-C [address] [place] [address] 268075 Assigned Heart and Vascular Provider 11/19/20 06/27/21 Violet Ta [facility] [address] [place] [address] 16209 Pharmacist Pharmacist 12/29/20 02/08/21 Sue Mckeon [facility] [address] [place] [address] [phone] Pharmacist Pharmacist Director Sales Training 02/09/21 06/29/22 Karen Trinh MD [address] [place] [address] 43469 Assigned Infectious Disease Provider 02/08/21 07/30/22 Violet Ta, [facility] [address] [place] [address] [address] [place] [address] Assigned MTM Pharmacist 02/27/22 05/21/22 Violet Ta [facility] 480 [facility] [address] [place] [address] Assigned MTM Pharmacist 06/02/22 07/09/22 Srinivas Stern PA-C 909 [place] [address] Assigned Gastroenterology Provider 07/17/22 Bandar Casas [facility] [address] [phone] Pharmacist Pharmacist 08/18/23 Bandar Casas [facility] [address] [phone] Assigned MTM Pharmacist 08/27/23 Ayana Zhang PA-C [address] [place] [address] [phone] Physician Tennis Centre Manager Rheumatology 04/16/24 Srinivas Stern PA-C 909 [place], [place] 046955 Home Infusion Following Provider Gastroenterology 07/11/24 10/05/24 documented as of this encounter
--- OUTSIDE RECORDS SUMMARY | 2025-01-15 17:23 | XMS_ITS | Encounter Summary ---
Author Organization [place] Address [address] [place] [address] Care Team Providers Care Wood Carver Hand Name Role Phone Jairo Vasquez MD Primary Care Provider [phone] Kylee Dailey MD Unavailable + Kayode Ivey MD Unavailable [phone] Nicolasa Perez APRN CRYSTAL ATTACHER Unavaila ble Loyda Dickey RN Unavailable [phone] Srinivas Stern PA-C Unavailable [phone] Srinivas Stern PA-C Unavailable +[phone] Violet Ta [facility] Unavailable +[phone] Sue Mckeon [facility] Unavailable [phone] Karen Trinh MD Unavailable +[phone] Violet Ta [facility] Unavailable +[phone] Violet Ta [facility] Unavailable +[phone] Srinivas Stern PA-C Unavailable +[phone] Bandar Casas [facility] Unavailable [phone] Bandar Casas [facility] Unavailable [phone] Ayana Zhang PA-C Unavailable [phone] Srinivas Stern PA-C Unavailable Encounter Details Date Type Department Care Team (Late st Contact Info) Description 11/30/2016 MyC Medical Advice [facility]ology [facility] Clinic [address] [place] [address] Kayode Ivey MD 6 [place] [address] Social History Tobacco Use Types Packs/Day Years Used Date Smoking Tobacco: Never Alcohol Use Standard Drinks/Week Comments No 0 (1 standard drink = 0.6 oz pur e alcohol) not currently Sex and Gender Information Value Date Recorded Sex Assigned at Not on file Legal Sex 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 IT TRAINEE Gender Identity Not on file Sexual Orientation Not on file 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 Plan of Treatment Upcoming Encounters Date Type Department Care Team (Latest Contact Info) Description 02/13/2025 3:20 PM CDT Appointment [facility] Imaging [address] [facility] [address] [place] [address] Kayode Ivey MD 6 [place] [address] 03/07/2025 3:00 PM CDT Ancillary Procedure [address] [place] [address] Srinivas Stern PA-C [address] [place] [address] [phone] 04/24/2025 2:40 PM CDT Virtual Visit [facility] [address] [address] Alexis Torres MD 420 [place] [address] Srinivas Stern PA-C 909 [place], [place] 468005 06/05/2025 3:30 PM CDT Virtual Visit Viola MADERA MTM 909 [facility] SE 2nd [place] [phone] Kayode Ivey MD 516 [place] [address] Bandar Casas, [facility] 420 [facility] 812 [place], [place] 680685 documented as of this encounter Visit Diagnoses Not on filedocumented in this encounter Additional Health Concerns Infection Onset Date Last Indicated Resolved Time MRSA-Contact Isolation Comment: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, chest, and elbow 02/17/2016 02/17/2016 Rule Out C-difficile 10/04/2023 10/05/2023 024 7:28 PM IT TRAINEE C-difficile 10/05/2023 10/05/2023 11/04/2023 11:3 9 PM IT TRAINEE Rule Out C-difficile 09/03/2024 09/04/2024 025 12:45 PM IT TRAINEE Assessment Noted Time PHQ-9 Depression Total Score: 9 03/02/20 16 7:16 AM CDT documented as of this encounter Care Teams Wood Carver Hand Relationship Specialty Start Date End Date Jairo Vasquez MD PCP - General Family Medicine - Sports Medicine 12/29/15 Kylee Dailey MD [address] [place] [address] 2A [place] [address] Internal Medicine 04/01/17 Kayode Ivey MD [address] [place] [address] Gastroenterology 04/01/17 Nicolasa Perez APRN CRYSTAL ATTACHER [address] [place] [address] [id number] [place], [place] 342185 Nurse Practitioner Nurse Practitioner 04/28/17 Loyda Dickey RN Nurse Coordinator Neurology 05/26/17 02/26/19 Srinivas Stern PA-C [address] [place] [address] [phone] Physician Impregnator Physician Impregnator 10/02/18 Srinivas Stern PA-C [address] [place] [address] [phone] Assigned Heart and Vascular Provider 11/19/20 06/27/21 Violet Ta [facility] [address] [place] [address] Pharmacist Pharmacist 12/29/20 02/08/21 Sue Mckeon [facility] [address] [place] [address] [phone] Pharmacist Pharmacist Marine Surveyor 02/09/21 06/29/22 Karen Trinh MD [address] [place] [address] [phone] Assigned Infectious Disease Provider 02/08/21 07/30/22 Violet Ta [facility] [address] [place] [address] [id number] Assigned MTM Pharmacist 02/27/22 05/21/22 Violet Ta [facility] [address] [place] [address] [address] [place] [address] Assigned MTM Pharmacist 06/02/22 07/09/22 Srinivas Stern PA-C 909 [place] [address] Assigned Gastroenterology Provider 07/17/22 Bandar Casas [facility] [address] [address] Pharmacist Pharmacist 08/18/23 Bandar Casas [facility] [address] [place] [address] Assigned MTM Pharmacist 08/27/23 Ayana Zhang PA-C [address] [place] [address] Physician Impregnator Rheumatology 04/16/24 Srinivas Stern PA-C [address] [place] [address] Home Infusion Following Provider Gastroenterology 07/11/24 10/05/24 documented as of this encounter
--- OUTSIDE RECORDS SUMMARY | 2025-01-15 17:24 | XMS_ITS | Encounter Summary ---
Author Organization [place] Address [address] [place] [address]. [place] [address] Care Team Providers Care Director Security Management Name Role Phone Jairo Vasquez MD Primary Care Provider Kylee Dailey MD Unavailable + Kayode Ivey MD Unavailable [phone] Nicolasa Perez APRN RESOURCE FORESTER Unavaila ble Srinivas Stern-C Unavailable Srinivas Stern-C Unavailable [phone] Bandar Casas [facility] Unavailable [phone] Bandar Casas [facility] Unavailable [phone] Ayana Zhang-C Unavailable [phone] Srinivas Stern-C Unavailable [phone] Encounter Details Date Type Department Care Team (Late st Contact Info) Description 12/07/2023 [facility] 909 [place] [address] Bandar Casas, 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 Plan of Treatment Upcoming Encounters Date Type Department Care Team (Latest Contact Info) Description 02/13/2025 3:20 PM CDT Appointment [facility] Specialty Care Center Imaging [address] [facility] [address] [place] [address] Kayode Ivey MD [address] [place] [address] 03/07/2025 3:00 PM CDT Ancillary Procedure [facility] [address] [facility] [address] [place] [address] Srinivas Stern PA-C [address] [place] [address] 04/24/2025 2:40 PM CDT Virtual Visit [facility]ology Clinic [address] 4th [place] [address] Alexis Torres MD 420 [place], [place] [phone] Srinivas Stern PA-C [address] [place] [address] 06/05/2025 3:30 PM CDT Virtual Visit [facility] GI [address] 2nd [place] [phone] Kayode Ivey MD [address] [place] [address] Bandar Casas, [facility] 420 [facility] 812 [place] [address] documented as of this encounter Visit Diagnoses Not on filedocumented in this encounter Additional Health Concerns Infection Onset Date Last Indicated Resolved Time MRSA-Contact Isolation Comment: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, chest, and elbow 02/17/2016 02/17/2016 Rule Out C-difficile 09/03/2024 09/04/2024 025 12:45 PM LEADITE HEATER Assessment Noted Time PHQ-9 Depression Total Score: 9 03/02/20 16 7:16 AM CDT documented as of this encounter Care Teams Director Security Management Relationship Specialty Start Date End Date Jairo Vasquez MD PCP - General Family Medicine - Sports Medicine 12/29/15 Kylee Dailey MD [address] [place], [place] [address]B 2A [place] [address] Internal Medicine 04/01/17 Kayode Ivey MD [address] [place] [address] Gastroenterology 04/01/17 Nicolasa Perez APRN RESOURCE FORESTER [address] [place] [address] [id number] [place] [address] Nurse Practitioner Nurse Practitioner 04/28/17 Srinivas Stern PA-C [address] [place] [address] Physician Mobile Equipment Mechanic Physician Mobile Equipment Mechanic 10/02/18 Srinivas Stern PA-C 909 [place] [address] Assigned Gastroenterology Provider 07/17/22 Bandar Casas [facility] [address] 779205 Pharmacist Pharmacist 08/18/23 Bandar Casas [facility] [address] 759885 Assigned MTM Pharmacist 08/27/23 Ayana Zhang PA-C 5200 [place] [address] Physician Mobile Equipment Mechanic Rheumatology 04/16/24 Srinivas Stern PA-C 909 [place] [address] Home Infusion Following Provider Gastroenterology 07/11/24 10/05/24 documented as of this encounter
--- OUTSIDE RECORDS SUMMARY | 2025-01-15 17:24 | XMS_ITS | Encounter Summary ---
Author Organization [place] Address [address] [place] [address] Care Team Providers Care Section Gang Worker Name Role Phone Jairo Vasquez MD Primary Care Provider [phone] Kylee Dailey MD Unavailable + Kayode Ivey MD Unavailable [phone] Nicolasa Perez APRN LUMBER YARD WORKER Unavaila ble Srinivas Stern-C Unavailable Srinivas Stern-C Unavailable [phone] Bandar Casas [facility] Unavailable [phone] Bandar Casas 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 Plan of Treatment Upcoming Encounters Date Type Department Care Team (Latest Contact Info) Description 02/13/2025 3:20 PM CDT Appointment [facility] Imaging [address] [facility] [address] [place] [address] Kayode Ivey MD [address] [place] [address] [phone] 03/07/2025 3:00 PM CDT Ancillary Procedure [address] [place] [address] Srinivas Stern PA-C [address] [place] [address] [phone] 04/24/2025 2:40 PM CDT Virtual Visit [facility] [address] 4th [place] [address] Alexis Torres MD 420 [place], [place] 166555 Srinivas Stern PA-C [address] [place] [address] 105935 06/05/2025 3:30 PM CDT [facility] Visit [facility] GI [facility] [address] [place] [address] 2nd [place] [address] Kayode Ivey MD [address] [place] [address] 952305 Bandar Casas [facility] 420 [facility] 812 [place], [place] 707235 documented as of this encounter Visit Diagnoses Not on filedocumented in this encounter Additional Health Concerns Infection Onset Date Last Indicated Resolved Time MRSA-Contact Isolation Comment: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, chest, and elbow 02/17/2016 02/17/2016 Rule Out C-difficile 09/03/2024 09/04/2024 025 12:45 PM SUPERVISOR PHOSPHORIC ACID Assessment Noted Time PHQ-9 Depression Total Score: 9 03/02/20 16 7:16 AM CDT documented as of this encounter Care Teams Section Gang Worker Relationship Specialty Start Date End Date Jairo Vasquez MD PCP - General Family Medicine - Sports Medicine 12/29/15 Kylee Dailey MD [address] [place] [address] 2A [place], [place] 019085 Internal Medicine 04/01/17 Kayode Ivey MD [address] [place] [address] 778475 Gastroenterology 04/01/17 Nicolasa Perez APRN LUMBER YARD WORKER [address] [place] [address] [id number] [place], [place] 760495 Nurse Practitioner Nurse Practitioner 04/28/17 Srinivas Stern PA-C [address] [place] [address] 498115 Physician Senior Technical Writer Physician Senior Technical Writer 10/02/18 Srinivas Stern PA-C [address] [place] [address] [phone] Assigned Gastroenterology Provider 07/17/22 Bandar Casas [facility] [address] 788275 Pharmacist Pharmacist 08/18/23 Bandar Casas [facility] [address] [phone] Assigned MTM Pharmacist 08/27/23 Ayana Zhang PA-C 5200 [place] [address] Physician Senior Technical Writer Rheumatology 04/16/24 Srinivas Stern PA-C 909 [place], [place] 519245 Home Infusion Following Provider Gastroenterology 07/11/24 10/05/24 documented as of this encounter
--- OUTSIDE RECORDS SUMMARY | 2025-01-15 17:24 | XMS_ITS | Encounter Summary ---
Author Organization [place] Address [address] [place] [address]. [place] [address] Care Team Providers Care Credit Union Field Examiner Name Role Phone Jairo Vasquez MD Primary Care Provider Kylee Dailey MD Unavailable + Kayode Ivey MD Unavailable [phone] Nicolasa Perez APRN DIRECTOR PEOPLESOFT Unavaila ble Srinivas Stern-C Unavailable Srinivas Stern-C Unavailable Bandar Casas [facility] Unavailable Bandar Casas [facility] Unavailable Ayana Zhang-C Unavailable Srinivas Stern-C Unavailable Encounter Details Date Type Department Care Team (Late st Contact Info) Description 04/10/2024 [facility] [place] [facility] [address] 4th [place] [address] Alfreda Lorenzo RN Social History [...] on file Legal Sex 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 SCHOOL OFFICE ASSISTANT Gender Identity Not on file Sexual Orientation Not on file 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 Plan of Treatment Upcoming Encounters Date Type Department Care Team (Latest Contact Info) Description 02/13/2025 3:20 PM CDT Appointment [facility] Imaging [address] [facility] [address] [place] [address] Kayode Ivey MD [address] [place] [address] [phone] 03/07/2025 3:00 PM CDT Ancillary Procedure [address] [place] [address] Srinivas Stern PA-C [address] [place] [address] 071835 04/24/2025 2:40 PM CDT Virtual Visit [facility]ology [facility] [address] 4th [place] [phone] Alexis Torres MD 420 [place], [place] 610055 Srinivas Stern PA-C [address] [place] [address] 678155 06/05/2025 3:30 PM CDT Virtual Visit [facility] GI [address]nd [place] [phone] Kayode Ivey MD [address] [place] [address] 039635 Bandar Casas [facility] 420 [facility] 812 [place] [address] documented as of this encounter Visit Diagnoses Not on filedocumented in this encounter Additional Health Concerns Infection Onset Date Last Indicated Resolved Time MRSA-Contact Isolation Comment: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, chest, and elbow 02/17/2016 02/17/2016 Rule Out C-difficile 09/03/2024 09/04/2024 025 12:45 PM SCHOOL OFFICE ASSISTANT Assessment Noted Time PHQ-9 Depression Total Score: 9 03/02/20 16 7:16 AM CDT documented as of this encounter Care Teams Credit Union Field Examiner Relationship Specialty Start Date End Date Jairo Vasquez MD PCP - General Family Medicine - Sports Medicine 12/29/15 Kylee Dailey MD [address] [place] [address] 2A [place], [place] 158065 Internal Medicine 04/01/17 Kayode Ivey MD [address] [place] [address] 339645 Gastroenterology 04/01/17 Nicolasa Perez APRN DIRECTOR [employer]OPLESO[employer] [address] [place], [place] [id number] [place] [address] Nurse Practitioner Nurse Practitioner 04/28/17 Srinivas Stern PA-C [address] [place] [address] 978835 Physician Hog Buyer Physician Hog Buyer 10/02/18 Srinivas Stern PA-C [address] [place] [address] [id number] Assigned Gastroenterology Provider 07/17/22 Bandar Casas [facility] [address] 841195 Pharmacist Pharmacist 08/18/23 Bandar Casas RP [address] 336075 Assigned MTM Pharmacist 08/27/23 Ayana Zhang PA-C 5200 [place] [address] Physician Hog Buyer Rheumatology 04/16/24 Srinivas Stern PA-C 909 [place], [place] 515695 Home Infusion Following Provider Gastroenterology 07/11/24 10/05/24 documented as of this encounter
--- OUTSIDE RECORDS SUMMARY | 2025-01-15 17:24 | XMS_ITS | Encounter Summary ---
Author Organization [facility] Address [address] [place] [address] 119[address] Care Team Providers Care Radiation Officer Name Role Phone Jairo Vasquez MD Primary Care Provider [phone] Kylee Dailey MD Unavailable + Kayode Ivey MD Unavailable [phone] Nicolasa Perez APRN HULL INSPECTOR Unavaila ble Loyda Dickey RN Unavailable +[phone] Srinivas Stern PA-C Unavailable +[phone] Srinivas Stern PA-C Unavailable +[phone] Violet Ta [facility] Unavailable +[phone] Sue Mckeon [facility] Unavailable [phone] Karen Trinh MD Unavailable +[phone] Violet Ta [facility] Unavailable +[phone] Violet Ta [facility] Unavailable +[phone] Srinivas Stern PA-C Unavailable +[phone] Bandar Casas [facility] Unavailable [phone] Bandar Casas [facility] Unavailable Ayana Zhang PA-C Unavailable [phone] Srinivas Stern PA-C Unavailable [phone] Encounter Details Date Type Department Care Team (Late st Contact Info) Description 10/04/2016 MyC Medical Advice [facility] [address] [place] [address] Kayode Ivey MD 6 [place] [address] Social History Tobacco Use Types Packs/Day Years Used Date Smoking Tobacco: Never Alcohol Use Standard Drinks/Week Comments No 0 (1 standard drink = 0.6 oz pur e alcohol) not currently Sex and Gender Information Value Date Recorded Sex Assigned at Not on file Legal Sex 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 INDUSTRIAL YARD BRAKE COUPLER Gender Identity Not on file Sexual Orientation Not on file 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 Plan of Treatment Upcoming Encounters Date Type Department Care Team (Latest Contact Info) Description 02/13/2025 3:20 PM CDT Appointment [facility] Care [facility] Imaging [address] [facility] [address] [place] [phone] Kayode Ivey MD 6 [place] [address] 03/07/2025 3:00 PM CDT Ancillary Procedure [address] [place] [address] Srinivas Stern PA-C [address] [place] [address] [id number] 04/24/2025 2:40 PM CDT Virtual Visit [facility]ology Clinic [address] [address] Alexis Torres MD 420 [place] [address] Srinivas Stern PA-C 909 [place], [place] 933635 06/05/2025 3:30 PM CDT Virtual Visit Viola MADERA MTM 909 [facility] SE 2nd [place] [phone] Kayode Ivey MD 516 [place] [address] Bandar Casas, [facility] 420 [facility] 812 [place], [place] [id number] documented as of this encounter Visit Diagnoses Not on filedocumented in this encounter Additional Health Concerns Infection Onset Date Last Indicated Resolved Time MRSA-Contact Isolation Comment: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, chest, and elbow 02/17/2016 02/17/2016 Rule Out C-difficile 10/04/2023 10/05/2023 024 7:28 PM INDUSTRIAL YARD BRAKE COUPLER C-difficile 10/05/2023 10/05/2023 11/04/2023 11:3 9 PM INDUSTRIAL YARD BRAKE COUPLER Rule Out C-difficile 09/03/2024 09/04/2024 025 12:45 PM INDUSTRIAL YARD BRAKE COUPLER Assessment Noted Time PHQ-9 Depression Total Score: 9 03/02/20 16 7:16 AM CDT documented as of this encounter Care Teams Radiation Officer Relationship Specialty Start Date End Date Jairo Vasquez MD PCP - General Family Medicine - Sports Medicine 12/29/15 Kylee Dailey MD [address] [place] [address] 2[address] [place] [address] Internal Medicine 04/01/17 Kayode Ivey MD [address] [place] [address] Gastroenterology 04/01/17 Nicolasa Perez APRN HULL INSPECTOR [address] [place] [address] [id number] [place], [place] 889155 Nurse Practitioner Nurse Practitioner 04/28/17 Loyda Dickey RN Nurse Coordinator Neurology 05/26/17 02/26/19 Srinivas Stern PA-C [address] [place] [address] [id number] Physician Hosiery Knitter Physician Hosiery Knitter 10/02/18 Srinivas Stern PA-C [address] [place] [address] [phone] Assigned Heart and Vascular Provider 11/19/20 06/27/21 Violet Ta [facility] [address] [place] [address] Pharmacist Pharmacist 12/29/20 02/08/21 Sue Mckeon [facility] [address] [place] [address] [phone] Pharmacist Pharmacist Flake Or Shred Roll Operator 02/09/21 06/29/22 Karen Trinh MD [address] [place] [address] [phone] Assigned Infectious Disease Provider 02/08/21 07/30/22 Violet Ta [facility] [address] [place] [address] [phone] Assigned MTM Pharmacist 02/27/22 05/21/22 Violet Ta [facility] [address] [place] [address] [address] [place] [address] Assigned MTM Pharmacist 06/02/22 07/09/22 Srinivas Stern PA-C 909 [place] [address] Assigned Gastroenterology Provider 07/17/22 Bandar Casas RPH [address] [address] Pharmacist Pharmacist 08/18/23 Bandar Casas RPH [address] [place] [address] Assigned MTM Pharmacist 08/27/23 Ayana Zhang PA-C [address] [place] [address] Physician Hosiery Knitter Rheumatology 04/16/24 Srinivas Stern PA-C [address] [place] [address] Home Infusion Following Provider Gastroenterology 07/11/24 10/05/24 documented as of this encounter
--- OUTSIDE RECORDS SUMMARY | 2025-01-15 17:24 | XMS_ITS | Encounter Summary ---
Author Organization [facility] Address [address] [place] [address] Care Team Providers Care Laborer Tan House Name Role Phone Jairo Vasquez MD Primary Care Provider [phone] Kylee Dailey MD Unavailable + Kayode Ivey MD Unavailable [phone] Nicolasa Perez APRN INTEGRITY ANALYST Unavaila ble Loyda Dickey RN Unavailable +[phone] Srinivas Stern PA-C Unavailable [phone] Srinivas Stern PA-C Unavailable +[phone] Violet Ta [facility] Unavailable +[phone] Sue Mckeon [facility] Unavailable [phone] Karen Trinh MD Unavailable +[phone] Violet Ta [facility] Unavailable [phone] Violet Ta [facility] Unavailable +[phone] Srinivas Stern PA-C Unavailable +[phone] Bandar Casas [facility] Unavailable [phone] Bandar Casas [facility] Unavailable Ayana Zhang PA-C Unavailable [phone] Srinivas Stern PA-C Unavailable Encounter Details Date Type Department Care Team (Late st Contact Info) Description 09/23/2016 MyC Medical Advice [facility] Gastroenterology and IBD Clinic [address] [place] [address] Kayode Ivey MD 6 [place] [address] Social History Tobacco Use Types Packs/Day Years Used Date Smoking Tobacco: Never Alcohol Use Standard Drinks/Week Comments No 0 (1 standard drink = 0.6 oz pur e alcohol) not currently Sex and Gender Information Value Date Recorded Sex Assigned at Not on file 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 Sex 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 Gender Identity Not on file Sexual Orientation Not on file 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 Plan of Treatment Upcoming Encounters Date Type Department Care Team (Latest Contact Info) Description 02/13/2025 3:20 PM CDT Appointment [facility] Care Center Imaging [address] [facility] [address] [place] [phone] Kayode Ivey MD 6 [place] [address] 03/07/2025 3:00 PM CDT Ancillary Procedure [address] [place] [address] Srinivas Stern PA-C [address] [place] [address] [phone] 04/24/2025 2:40 PM CDT Virtual Visit [facility] Gastroenterology Clinic [address] [address] Alexis Torres MD 420 [place] [address] Srinivas Stern PA-C 909 [place], [place] 0[address]85 06/05/2025 3:30 PM CDT Virtual Visit Viola MADERA MTM 909 [facility] SE 2nd [place] [phone] Kayode Ivey MD 516 [place] [address] Bandar Casas, [facility] 420 [facility] 812 [place], [place] [phone] documented as of this encounter Visit Diagnoses Not on filedocumented in this encounter Additional Health Concerns Infection Onset Date Last Indicated Resolved Time MRSA-Contact Isolation Comment: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, chest, and elbow 02/17/2016 02/17/2016 Rule Out C-difficile 10/04/2023 10/05/2023 024 7:28 PM FIELD MARKETING ASSOCIATE C-difficile 10/05/2023 10/05/2023 11/04/2023 11:3 9 PM FIELD MARKETING ASSOCIATE Rule Out C-difficile 09/03/2024 09/04/2024 025 12:45 PM FIELD MARKETING ASSOCIATE Assessment Noted Time PHQ-9 Depression Total Score: 9 03/02/20 16 7:16 AM CDT documented as of this encounter Care Teams Laborer Tan House Relationship Specialty Start Date End Date Jairo Vasquez MD PCP - General Family Medicine - Sports Medicine 12/29/15 Kylee Dailey MD [address] [place] [address] 2A [place] [address] Internal Medicine 04/01/17 Kayode Ivey MD [address] [place] [address] Gastroenterology 04/01/17 Nicolasa Perez APRN INTEGRITY ANALYST [address] [place] [address] [id number] [place], [place] [phone] Nurse Practitioner Nurse Practitioner 04/28/17 Loyda Dickey RN Nurse Coordinator Neurology 05/26/17 02/26/19 Srinivas Stern PA-C [address] [place] [address] [phone] Physician Rehabilitation Therapy Aide Physician Rehabilitation Therapy Aide 10/02/18 Srinivas Stern PA-C [address] [place] [address] [phone] Assigned Heart and Vascular Provider 11/19/20 06/27/21 Violet Ta [facility] [address] [place] [address] Pharmacist Pharmacist 12/29/20 02/08/21 Sue Mckeon [facility] [address] [place] [address] 165815 Pharmacist Pharmacist Bed Bug Exterminator 02/09/21 06/29/22 Karen Trinh MD [address] [place] [address] [phone] Assigned Infectious Disease Provider 02/08/21 07/30/22 Violet Ta [facility] [address] [place] [address] [phone] Assigned MTM Pharmacist 02/27/22 05/21/22 Violet Ta [facility] [address] [place] [address] [address] [place] [address] Assigned MTM Pharmacist 06/02/22 07/09/22 Srinivas Stern PA-C 909 [place] [address] Assigned Gastroenterology Provider 07/17/22 Bandar Casas RPH [address] [address] Pharmacist Pharmacist 08/18/23 Bandar Casas RPH [address] [place] [address] Assigned MTM Pharmacist 08/27/23 Ayana Zhang PA-C [address] [place] [address] Physician Rehabilitation Therapy Aide Rheumatology 04/16/24 Srinivas Stern PA-C [address] [place] [address] Home Infusion Following Provider Gastroenterology 07/11/24 10/05/24 documented as of this encounter
--- OUTSIDE RECORDS SUMMARY | 2025-01-15 17:24 | XMS_ITS | Encounter Summary ---
Author Organization [facility] Address [address] [place] [address]. [place] [address] Care Team Providers Care Education Paraprofessional Name Role Phone Jairo Vasquez MD Primary Care Provider Kylee Dailey MD Unavailable + Kayode Ivey MD Unavailable [phone] Nicolasa Perez APRN BUCKLE STRAP DRUM OPERATOR Unavaila ble Srinivas Stern-C Unavailable Srinivas Stern-C Unavailable Bandar Casas [facility] Unavailable Bandar Casas [facility] Unavailable Ayana Zhang-C Unavailable Srinivas Stern-C Unavailable Encounter Details Date Type Department Care Team (Late st Contact Info) Description 03/04/2024 [facility] 909 [place] [address] Bandar Casas [facility] [address] [facility] [address] [facility] 812 [place] [address] Social History Tobacco Use Types [...] on file 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 Specialty Care Center Imaging [address] [facility] [address] [place] [address] Kayode Ivey MD [address] [place] [address] 03/07/2025 3:00 PM CDT Ancillary Procedure [facility] 303 [facility] [address] [place] [address] Srinivas Stern PA-C [address] [place] [address] 04/24/2025 2:40 PM CDT Virtual Visit [facility] Gastroenterology Clinic [address]th [place] [address] Alexis Torres MD 420 [place], [place] [phone] Srinivas Stern PA-C [address] [place] [address] 06/05/2025 3:30 PM CDT Virtual Visit [facility] GI [address]nd [place] [phone] Kayode Ivey MD [address] [place] [address] Bandar Casas, [facility] 420 [facility] 812 [place] [address] documented as of this encounter Visit Diagnoses Not on filedocumented in this encounter Additional Health Concerns Infection Onset Date Last Indicated Resolved Time MRSA-Contact Isolation Comment: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, chest, and elbow 02/17/2016 02/17/2016 Rule Out C-difficile 09/03/2024 09/04/2024 025 12:45 PM DISC PAD KNOCKOUT WORKER Assessment Noted Time PHQ-9 Depression Total Score: 9 03/02/20 16 7:16 AM CDT documented as of this encounter Care Teams Education Paraprofessional Relationship Specialty Start Date End Date Jairo Vasquez MD PCP - General Family Medicine - Sports Medicine 12/29/15 Kylee Dailey MD [address] [place], [place] [address]B 2A [place] [address] Internal Medicine 04/01/17 Kayode Ivey MD [address] [place] [address] Gastroenterology 04/01/17 Nicolasa Perez APRN BUCKLE STRAP DRUM OPERATOR [address] [place] [address] [id number] [place] [address] Nurse Practitioner Nurse Practitioner 04/28/17 Srinivas Stern PA-C [address] [place] [address] Physician Transit Mixer Driver Physician Transit Mixer Driver 10/02/18 Srinivas Stern PA-C 909 [place] [address] Assigned Gastroenterology Provider 07/17/22 Bandar Casas RPH [address] [phone] Pharmacist Pharmacist 08/18/23 Bandar Casas RPH [address] [phone] Assigned MTM Pharmacist 08/27/23 Ayana Zhang PA-C 5200 [place] [address] Physician Transit Mixer Driver Rheumatology 04/16/24 Srinivas Stern PA-C 909 [place] [address] Home Infusion Following Provider Gastroenterology 07/11/24 10/05/24 documented as of this encounter
--- OUTSIDE RECORDS SUMMARY | 2025-01-15 17:24 | XMS_ITS | Encounter Summary ---
Author Organization [facility] Address [address] [place] [address]. [place] [address] Care Team Providers Care Child'S Nurse Name Role Phone Jairo Vasquez MD Primary Care Provider [phone] Kylee Dailey MD Unavailable + Kayode Ivey MD Unavailable [phone] Nicolasa Perez APRN PRODUCT PLANNER Unavaila ble Srinivas Stern-C Unavailable [phone] Srinivas Stern-C Unavailable Bandar Casas [facility] Unavailable Bandar Casas [facility] Unavailable Ayana Zhang-C Unavailable Srinivas Stern-C Unavailable Encounter Details Date Type Department Care Team (Late st Contact Info) Description 08/18/2023 [facility] 909 [place] [address] Bandar Casas, [facility] [address] [place] [address] [facility] 812 [place] [address] Social History Tobacco Use Types [...] file Legal Sex 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 MEDICAL 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ty Care [facility] Imaging [address] [facility] [address] [place] [address] Kayode Ivey MD [address] [place] [address] 03/07/2025 3:00 PM CDT Ancillary Procedure [facility] 303 [facility] [address] [place] [address] Srinivas Stern PA-C [address] [place] [address] 04/24/2025 2:40 PM CDT Virtual Visit [facility] Gastroenterology Clinic [address]th [place] [address] Alexis Torres MD 420 [place], [place] [phone] Srinivas Stern PA-C [address] [place] [address] 06/05/2025 3:30 PM CDT Virtual Visit [facility] GI [address] [place] [phone] Kayode Ivey MD [address] [place] [address] Bandar Casas, [facility] 420 [facility] 812 [place] [address] documented as of this encounter Visit Diagnoses Not on filedocumented in this encounter Additional Health Concerns Infection Onset Date Last Indicated Resolved Time MRSA-Contact Isolation Comment: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, chest, and elbow 02/17/2016 02/17/2016 Rule Out C-difficile 10/04/2023 10/05/2023 024 7:28 PM MEDICAL VIDEOGRAPHER C-difficile 10/05/2023 10/05/2023 11/04/2023 11:3 9 PM MEDICAL VIDEOGRAPHER Rule Out C-difficile 09/03/2024 09/04/2024 025 12:45 PM MEDICAL VIDEOGRAPHER Assessment Noted Time PHQ-9 Depression Total Score: 9 03/02/20 16 7:16 AM CDT documented as of this encounter Care Teams Child'S Nurse Relationship Specialty Start Date End Date Jairo Vasquez MD PCP - General Family Medicine - Sports Medicine 12/29/15 Kylee Dailey MD [address] [place], [place] [address] 2A [place] [address] Internal Medicine 04/01/17 Kayode Ivey MD [address] [place] [address] Gastroenterology 04/01/17 Nicolasa Perez APRN PRODUCT PLANNER [address] [place], [place] [address]CJ [place] [address] Nurse Practitioner Nurse Practitioner 04/28/17 Srinivas Stern PA-C 909 [place] [address] Physician Zipper Joiner Physician Zipper Joiner 10/02/18 Srinivas Stern PA-C [address] [place] [address] Assigned Gastroenterology Provider 07/17/22 Bandar Casas RPH [address] [place] [address] 835755 Pharmacist Pharmacist 08/18/23 Bandar Casas RPH [address] [place] [address] 500165 Assigned MTM Pharmacist 08/27/23 Ayana Zhang PA-C [address] [place] [address] [phone] Physician Zipper Joiner Rheumatology 04/16/24 Srinivas Stern PA-C [address] [place] [address] Home Infusion Following Provider Gastroenterology 07/11/24 10/05/24 documented as of this encounter
--- OUTSIDE RECORDS SUMMARY | 2025-01-15 17:24 | XMS_ITS | Encounter Summary ---
Author Organization [facility] Address [address] [place] [address] Care Team Providers Care Marketing Planning Manager Name Role Phone Jairo Vasquez MD Primary Care Provider Kylee Dailey MD Unavailable + Kayode Ivey MD Unavailable [phone] Nicolasa Perez APRN CLINICAL ATHLETIC INSTRUCTOR Unavaila ble Srinivas Stern PA-C Unavailable [phone] Srinivas Stern PA-C Unavailable [phone] Bandar Casas [facility] Unavailable [phone] Bandar Casas [facility] Unavailable Ayana Zhang PA-C Unavailable Srinivas Stern PA-C Unavailable Encounter Details Date Type Department Care Team (Late st Contact Info) Description 12/08/2023 [facility] Gastro[facility] Clinic [address] [place] [address] Srinivas Stern PA-C 909 [place] [address] Social History Tobacco Use Types [...] file 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 Gender Identity Not on file Sexual Orientation Not on file 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 Plan of Treatment Upcoming Encounters Date Type Department Care Team (Latest Contact Info) Description 02/13/2025 3:20 PM CDT Appointment [facility] Imaging [address] [facility] [address] [place] [address] Kayode Ivey MD [address] [place] [address] 03/07/2025 3:00 PM CDT Ancillary Procedure [address] [place] [address] Srinivas Stern PA-C [address] [place] [address] 04/24/2025 2:40 PM CDT Virtual Visit [facility] Gastroenterology Clinic [address] [place] [address] Alexis Torres MD 420 [place], [place] [phone] Srinivas Stern PA-C [address] [place] [address] 06/05/2025 3:30 PM CDT Virtual Visit [facility] GI [address] [phone] Kayode Ivey MD [address] [place] [address] Bandar Casas, RPH 420 [facility] 812 [place] [address] documented as of this encounter Visit Diagnoses Not on filedocumented in this encounter Additional Health Concerns Infection Onset Date Last Indicated Resolved Time MRSA-Contact Isolation Comment: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, chest, and elbow 02/17/2016 02/17/2016 Rule Out C-difficile 09/03/2024 09/04/2024 025 12:45 PM REGIONAL BUSINESS MANAGER Assessment Noted Time PHQ-9 Depression Total Score: 9 03/02/20 16 7:16 AM CDT documented as of this encounter Care Teams Marketing Planning Manager Relationship Specialty Start Date End Date Jairo Vasquez MD PCP - General Family Medicine - Sports Medicine 12/29/15 Kylee Dailey MD 6 [facility] 2A [place] [address] Internal Medicine 04/01/17 Kayode Ivey MD 6 [place] [address] Gastroenterology 04/01/17 Nicolasa Perez APRN CLINICAL ATHLETIC INSTRUCTOR [address] [place], [place] [address] [address] Nurse Practitioner Nurse Practitioner 04/28/17 Srinivas Stern PA-C [address] [place] [address] Physician Flexible Machining System Machinist Physician Flexible Machining System Machinist 10/02/18 Srinivas Stern PA-C 909 [place] [address] Assigned Gastroenterology Provider 07/17/22 Bandar Casas RPH [address] [phone] Pharmacist Pharmacist 08/18/23 Bandar Casas RPH [address] [phone] Assigned MTM Pharmacist 08/27/23 Ayana Zhang PA-C 5200 [place] [address] Physician Flexible Machining System Machinist Rheumatology 04/16/24 Srinivas Stern PA-C 909 [place] [address] Home Infusion Following Provider Gastroenterology 07/11/24 10/05/24 documented as of this encounter
--- OUTSIDE RECORDS SUMMARY | 2025-01-15 17:24 | XMS_ITS | Encounter Summary ---
Author Organization [facility] Address [address] [place] [address] Care Team Providers Care Scroll Assembler Name Role Phone Jairo Vasquez MD Primary Care Provider [phone] Kylee Dailey MD Unavailable + Kayode Ivey MD Unavailable +- [phone] Nicolasa Perez APRN GRADES 1 6 TUTOR Unavaila ble Loyda Dickey RN Unavailable +[phone] Srinivas Stern PA-C Unavailable +[phone] Srinivas Stern PA-C Unavailable +[phone] Violet Ta [facility] Unavailable +[phone] Sue Mckeon [facility] Unavailable +[phone] Karen Trinh MD Unavailable +[phone] Violet Ta [facility] Unavailable +[phone] Violet Ta [facility] Unavailable +[phone] Srinivas Stern PA-C Unavailable +[phone] Bandar Casas [facility] Unavailable +[phone] Bandar Casas [facility] Unavailable Ayana Zhang PA-C Unavailable +[phone] Srinivas Stern PA-C Unavailable [phone] Encounter Details Date Type Department Care Team (Late st Contact Info) Description 03/02/2016 MyC Medical Advice 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 [address] [facility] [address] [place] [address] Srinivas Stern PA-C [address] [place] [address] [phone] 04/24/2025 2:40 PM CDT Virtual Visit [facility] Gastroenterology Clinic [address] [address] Alexis Torres MD 420 [place], [place] [phone] Srinivas Stern PA-C [address] [place] [address] [phone] 06/05/2025 3:30 PM CDT [facility] [address] [facility] [address] 2nd [place] [address] Kayode Ivey MD 516 [place], [place] [phone] Bandar Casas, [facility] 420 [facility] 812 [place], [place] 584875 documented as of this encounter Visit Diagnoses Not on filedocumented in this encounter Additional Health Concerns Infection Onset Date Last Indicated Resolved Time MRSA-Contact Isolation Comment: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, chest, and elbow 02/17/2016 02/17/2016 Rule Out C-difficile 10/04/2023 10/05/2023 024 7:28 PM MANAGER OF CARE C-difficile 10/05/2023 10/05/2023 11/04/2023 11:3 9 PM MANAGER OF CARE Rule Out C-difficile 09/03/2024 09/04/2024 025 12:45 PM MANAGER OF CARE Assessment Noted Time PHQ-9 Depression Total Score: 9 03/02/20 16 7:16 AM CDT documented as of this encounter Care Teams Scroll Assembler Relationship Specialty Start Date End Date Jairo Vasquez MD PCP - General Family Medicine - Sports Medicine 12/29/15 Kylee Dailey MD [address] [place], [place] [address]B 2A [place], [place] 9[address]055 Internal Medicine 04/01/17 Kayode Ivey MD [address] [place] [address] Gastroenterology 04/01/17 Nicolasa Perez, CORE EXTRUDER GRADES [address] [place] [address] [id number] [place] [address] Nurse Practitioner Nurse Practitioner 04/28/17 Loyda Dickey, RN Nurse Coordinator Neurology 05/26/17 02/26/19 Srinivas Stern PA-C [address] [place] [address] 25607 Physician Blueprint Blocker Physician Blueprint Blocker 10/02/18 Srinivas Stern PA-C [address] [place] [address] 11062 Assigned Heart and Vascular Provider 11/19/20 06/27/21 [facility] [address] [place] [address] Pharmacist Pharmacist 12/29/20 02/08/21 Sue Mckeon [facility] [address] [place] [address] 41705 Pharmacist Pharmacist Medicaid Collection Specialist 02/09/21 06/29/22 Karen Trinh MD [address] [place] [address] 61824 Assigned Infectious Disease Provider 02/08/21 07/30/22 Violet Ta, [facility] [address] [place] [address] Assigned MTM Pharmacist 02/27/22 05/21/22 Violet Ta [facility] [address] [place] [address] Assigned MTM Pharmacist 06/02/22 07/09/22 Srinivas Stern PA-C 909 [place] [address] Assigned Gastroenterology Provider 07/17/22 Bandar Casas [facility] [address] [phone] Pharmacist Pharmacist 08/18/23 Bandar Casas [facility] [address] [phone] Assigned MTM Pharmacist 08/27/23 Ayana Zhang PA-C 5200 [place] [address] Physician Blueprint Blocker Rheumatology 04/16/24 Srinivas Stern PA-C 909 [place] [address] Home Infusion Following Provider Gastroenterology 07/11/24 10/05/24 documented as of this encounter
--- OUTSIDE RECORDS SUMMARY | 2025-01-15 17:24 | XMS_ITS | Encounter Summary ---
Author Organization [place] Address [address] [place] [address] Care Team Providers Care Observer Gravity Prospecting Name Role Phone Jairo Vasquez MD Primary Care Provider [phone] Kylee Dailey MD Unavailable + Kayode Ivey MD Unavailable [phone] Nicolasa Perez APRN MEDICAL APPOINTMENT CLERK Unavaila ble Loyda Dickey RN Unavailable +[phone] Srinivas Stern PA-C Unavailable +[phone] Srinivas Stern PA-C Unavailable +[phone] Violet Ta [facility] Unavailable +[phone] Sue Mckeon [facility] Unavailable +[phone] Karen Trinh MD Unavailable +[phone] Violet Ta [facility] Unavailable +[phone] Violet Ta [facility] Unavailable +[phone] Srinivas Stern PA-C Unavailable +[phone] Bandar Casas [facility] Unavailable +[phone] Bandar Casas [facility] Unavailable +[phone] Ayana Zhang PA-C Unavailable [phone] Srinivas Stern PA-C Unavailable Encounter Details Date Type Department Care Team (Late st Contact Info) Description 01/13/2018 MyC Medical Advice [facility] Gastroenterology and IBD Clinic [address] [place] [address] Kayode Ivey MD 6 [place] [address] Social History Tobacco Use Types Packs/Day Years Used Date Smoking Tobacco: Never Smokeless Tobacco: Never Alcohol Use Standard Drinks/Week Comments Yes 13 (1 standard drink = 0.6 oz pu re alcohol) MONTHLY Sex and Gender Information Value Date Recorded Sex Assigned at Not on file Legal Sex 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 PAINTER ORDNANCE Gender Identity Not on file Sexual Orientation Not on file 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 Plan of Treatment Upcoming Encounters Date Type Department Care Team (Latest Contact Info) Description 02/13/2025 3:20 PM CDT Appointment [facility] Imaging [address] [facility] [address] [place] [phone] Kayode Ivey MD 6 [place] [address] 03/07/2025 3:00 PM CDT Ancillary Procedure [address] [place] [address] Srinivas Stern PA-C 9 [place], [place] 813865 04/24/2025 2:40 PM CDT Virtual Visit [facility]ology [facility] [address] [address] Alexis Torres MD 420 [place] [address] Srinivas Stern PA-C 909 [place], [place] [phone] 06/05/2025 3:30 PM CDT Virtual Visit Viola [facility] 909 [facility] 2nd [place] [phone] Kayode Ivey MD 516 [place] [address] Bandar Casas, [facility] 420 [facility] 812 [place] [address] documented as of this encounter Visit Diagnoses Not on filedocumented in this encounter Additional Health Concerns Infection Onset Date Last Indicated Resolved Time MRSA-Contact Isolation Comment: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, chest, and elbow 02/17/2016 02/17/2016 Rule Out C-difficile 10/04/2023 10/05/2023 024 7:28 PM PAINTER ORDNANCE C-difficile 10/05/2023 10/05/2023 11/04/2023 11:3 9 PM PAINTER ORDNANCE Rule Out C-difficile 09/03/2024 09/04/2024 025 12:45 PM PAINTER ORDNANCE Assessment Noted Time PHQ-9 Depression Total Score: 9 03/02/20 16 7:16 AM CDT documented as of this encounter Care Teams Observer Gravity Prospecting Relationship Specialty Start Date End Date Jairo Vasquez MD PCP - General Family Medicine - Sports Medicine 12/29/15 Kylee Dailey MD [address] [place] [address] 2A [place], [place] [phone] Internal Medicine 04/01/17 Kayode Ivey MD [address] [place] [address] Gastroenterology 04/01/17 Nicolasa Perez APRN MEDICAL APPOINTMENT CLERK [address] [place] [address] [id number] [place], [place] 523625 Nurse Practitioner Nurse Practitioner 04/28/17 Loyda Dickey RN Nurse Coordinator Neurology 05/26/17 02/26/19 Srinivas Stern PA-C [address] [place] [address] Physician Theater Technician Physician Theater Technician 10/02/18 Srinivas Stern PA-C [address] [place] [address] Assigned Heart and Vascular Provider 11/19/20 06/27/21 Violet Ta [facility] [address] [place] [address] Pharmacist Pharmacist 12/29/20 02/08/21 Sue Mckeon [facility] [address] [place] [address] 905555 Pharmacist Pharmacist Fern Gatherer 02/09/21 06/29/22 Karen Trinh MD [address] [place] [address] [phone] Assigned Infectious Disease Provider 02/08/21 07/30/22 Violet Ta [facility] [address] [place] [address] 96 [place], [place] [phone] Assigned MTM Pharmacist 02/27/22 05/21/22 Violet Ta [facility] 480 [facility] [address] [place] [address] Assigned MTM Pharmacist 06/02/22 07/09/22 Srinivas Stern PA-C [address] [place] [address] Assigned Gastroenterology Provider 07/17/22 Bandar Casas RPH 420 [facility] 812 [place] [address] Pharmacist Pharmacist 08/18/23 Bandar Casas RP [address] [address] Assigned MTM Pharmacist 08/27/23 Ayana Zhang PA-C [address] [place] [address]87 Physician Theater Technician Rheumatology 04/16/24 Srinivas Stern PA-C 909 [place] [address] Home Infusion Following Provider Gastroenterology 07/11/24 10/05/24 documented as of this encounter
--- OUTSIDE RECORDS SUMMARY | 2025-01-15 17:24 | XMS_ITS | Encounter Summary ---
Author Organization [facility] Address [address] [place] [address] Care Team Providers Care Shipping Manager Name Role Phone Jairo Vasquez MD Primary Care Provider [phone] Kylee Dailey MD Unavailable + Kayode Ivey MD Unavailable [phone] Nicolasa Perez APRN BIT GATHERER Unavaila ble Loyda Dickey RN Unavailable +[phone] Srinivas Stern PA-C Unavailable +[phone] Srinivas Stern PA-C Unavailable +[phone] Violet Ta [facility] Unavailable +[phone] Sue Mckeon [facility] Unavailable +[phone] Karen Trinh MD Unavailable +[phone] Violet Ta [facility] Unavailable +[phone] Violet Ta [facility] Unavailable +[phone] Srinivas Stern PA-C Unavailable +[phone] Bandar Casas [facility] Unavailable +[phone] Bandar Casas [facility] Unavailable Ayana Zhang PA-C Unavailable [phone] Srinivas Stern PA-C Unavailable [phone] Encounter Details Date Type Department Care Team (Late st Contact Info) Description 07/11/2017 MyC Medical Advice [facility] Gastroenterology and IBD Clinic [address] [place] [address] Kayode Ivey MD 6 [place], [place] 604905 Social History Tobacco Use Types Packs/Day Years Used Date Smoking Tobacco: Never Smokeless Tobacco: Never Alcohol Use Standard Drinks/Week Comments Yes 13 (1 standard drink = 0.6 oz pu re alcohol) MONTHLY Sex and Gender Information Value Date Recorded Sex Assigned at Not on file Legal Sex 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 DIGITAL ADVERTISING SPECIALIST Gender Identity Not on file Sexual Orientation Not on file 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 Plan of Treatment Upcoming Encounters Date Type Department Care Team (Latest Contact Info) Description 02/13/2025 3:20 PM CDT Appointment [facility] Imaging [address] [facility] [address] [place] [phone] Kayode Ivey MD 6 [place] [address] 03/07/2025 3:00 PM CDT Ancillary Procedure [address] [place] [address] Srinivas Stern PA-C 9 [place], [place] 544285 04/24/2025 2:40 PM CDT Virtual Visit [facility] Gastroenterology Clinic [address] [address] Alexis Torres MD 420 [place] [address] Srinivas Stern PA-C 909 [place], [place] [phone] 06/05/2025 3:30 PM CDT Virtual Visit Viola [facility] 909 [facility] 2nd [place] [phone] Kayode Ivye MD 516 [place] [address] Bandar Casas, [facility] 420 [facility] 812 [place] [address] documented as of this encounter Visit Diagnoses Not on filedocumented in this encounter Additional Health Concerns Infection Onset Date Last Indicated Resolved Time MRSA-Contact Isolation Comment: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, chest, and elbow 02/17/2016 02/17/2016 Rule Out C-difficile 10/04/2023 10/05/2023 024 7:28 PM DIGITAL ADVERTISING SPECIALIST C-difficile 10/05/2023 10/05/2023 11/04/2023 11:3 9 PM DIGITAL ADVERTISING SPECIALIST Rule Out C-difficile 09/03/2024 09/04/2024 025 12:45 PM DIGITAL ADVERTISING SPECIALIST Assessment Noted Time PHQ-9 Depression Total Score: 9 03/02/20 16 7:16 AM CDT documented as of this encounter Care Teams Shipping Manager Relationship Specialty Start Date End Date Jairo Vasquez MD PCP - General Family Medicine - Sports Medicine 12/29/15 Kylee Dailey MD [address] [place] [address] 2A [place], [place] [phone] Internal Medicine 04/01/17 Kayode Ivey MD [address] [place] [address] Gastroenterology 04/01/17 Nicolasa Perez APRN BIT GATHERER [address] [place] [address] [id number] [place], [place] 376205 Nurse Practitioner Nurse Practitioner 04/28/17 Loyda Dickey RN Nurse Coordinator Neurology 05/26/17 02/26/19 Srinivas Stern PA-C [address] [place] [address] Physician Facing Cutting Machine Operator Physician Facing Cutting Machine Operator 10/02/18 Srinivas Stern PA-C [address] [place] [address] Assigned Heart and Vascular Provider 11/19/20 06/27/21 Violet Ta [facility] [address] [place] [address] Pharmacist Pharmacist 12/29/20 02/08/21 Sue Mckeon [facility] [address] [place] [address] [phone] Pharmacist Pharmacist Road Roller Engineer 02/09/21 06/29/22 Karen Trinh MD [address] [place] [address] [phone] Assigned Infectious Disease Provider 02/08/21 07/30/22 Violet Ta [facility] [address] [place] [address] 96 [place], [place] [phone] Assigned MTM Pharmacist 02/27/22 05/21/22 Violet Ta [facility] 480 [facility] [address] [place] [address] Assigned MTM Pharmacist 06/02/22 07/09/22 Srinivas Stern PA-C [address] [place] [address] Assigned Gastroenterology Provider 07/17/22 Bandar Casas RPH 420 [facility] 812 [place] [address] Pharmacist Pharmacist 08/18/23 Bandar Casas RP [address] [address] Assigned MTM Pharmacist 08/27/23 Ayana Zhang PA-C [address] [place] [address] Physician Facing Cutting Machine Operator Rheumatology 04/16/24 Srinivas Stern PA-C 909 [place] [address] Home Infusion Following Provider Gastroenterology 07/11/24 10/05/24 documented as of this encounter
--- OUTSIDE RECORDS SUMMARY | 2025-01-15 17:24 | XMS_ITS | Encounter Summary ---
Author Organization [facility] Address [address] [place] [address] Care Team Providers Care Painter Structural Steel Name Role Phone Jairo Vasquez MD Primary Care Provider [phone] Kylee Dailey MD Unavailable + Kayode Ivey MD Unavailable [phone] Nicolasa Perez APRN BOUNTY HUNTER Unavaila ble Loyda Dickey RN Unavailable +[phone] Srinivas Stern PA-C Unavailable +[phone] Srinivas Stern PA-C Unavailable +[phone] Violet Ta [facility] Unavailable +[phone] Sue Mckeon [facility] Unavailable +[phone] Karen Trinh MD Unavailable +[phone] Violet Ta [facility] Unavailable +[phone] Violet Ta [facility] Unavailable +[phone] Srinivas Stern PA-C Unavailable +[phone] Bandar Casas [facility] Unavailable [phone] Bandar Casas [facility] Unavailable Ayana Zhang PA-C Unavailable [phone] Srinivas Stern PA-C Unavailable Encounter Details Date Type Department Care Team (Late st Contact Info) Description 08/05/2016 MyC Medical Advice [facility] Gastroenterology and IBD Clinic [address] [place] [address] Kayode Ivey MD 6 [place] [address] Social History Tobacco Use Types Packs/Day Years Used Date Smoking Tobacco: Never Alcohol Use Standard Drinks/Week Comments No 0 (1 standard drink = 0.6 oz pur e alcohol) not currently Sex and Gender Information Value Date Recorded Sex Assigned at Not on file Legal Sex 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 ELEPHANT TAMER Gender Identity Not on file Sexual Orientation Not on file 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 Plan of Treatment Upcoming Encounters Date Type Department Care Team (Latest Contact Info) Description 02/13/2025 3:20 PM CDT Appointment [facility] Imaging [address] [facility] [address] [place] [phone] Kayode Ivey MD 6 [place] [address] 03/07/2025 3:00 PM CDT Ancillary Procedure [address] [place] [address] Srinivas Stern PA-C [address] [place] [address] [phone] 04/24/2025 2:40 PM CDT Virtual Visit [facility] Gastroenterology Clinic [address] [address] Alexis Torres MD 420 [place] [address] Srinivas Stern PA-C 909 [place], [place] 226885 06/05/2025 3:30 PM CDT Virtual Visit Viola [facility] MTM 909 [facility] [address] 2nd [place] [phone] Kayode Ivey MD 516 [place] [address] Bandar Casas, [facility] 420 [facility] 812 [place], [place] [phone] documented as of this encounter Visit Diagnoses Not on filedocumented in this encounter Additional Health Concerns Infection Onset Date Last Indicated Resolved Time MRSA-Contact Isolation Comment: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, chest, and elbow 02/17/2016 02/17/2016 Rule Out C-difficile 10/04/2023 10/05/2023 024 7:28 PM ELEPHANT TAMER C-difficile 10/05/2023 10/05/2023 11/04/2023 11:3 9 PM ELEPHANT TAMER Rule Out C-difficile 09/03/2024 09/04/2024 025 12:45 PM ELEPHANT TAMER Assessment Noted Time PHQ-9 Depression Total Score: 9 03/02/20 16 7:16 AM CDT documented as of this encounter Care Teams Painter Structural Steel Relationship Specialty Start Date End Date Jairo Vasquez MD PCP - General Family Medicine - Sports Medicine 12/29/15 Kylee Dailey MD [address] [place] [address] 2A [place] [address] Internal Medicine 04/01/17 Kayode Ivey MD [address] [place] [address] Gastroenterology 04/01/17 Nicolasa Perez APRN BOUNTY HUNTER [address] [place] [address] PL8675IO [place], [place] 204165 Nurse Practitioner Nurse Practitioner 04/28/17 Loyda Dickey RN Nurse Coordinator Neurology 05/26/17 02/26/19 Srinivas Stern PA-C [address] [place] [address] [phone] Physician Filter Press Supervisor Physician Filter Press Supervisor 10/02/18 Srinivas Stern PA-C [address] [place] [address] 205655 Assigned Heart and Vascular Provider 11/19/20 06/27/21 Violet Ta [facility] [address] [place] [address] Pharmacist Pharmacist 12/29/20 02/08/21 Sue Mckeon [facility] [address] [place] [address] [phone] Pharmacist Pharmacist Records Management Engineer 02/09/21 06/29/22 Karen Trinh MD [address] [place] [address] [phone] Assigned Infectious Disease Provider 02/08/21 07/30/22 Violet Ta [facility] [address] [place] [address] [phone] Assigned MTM Pharmacist 02/27/22 05/21/22 Violet Ta [facility] [address] [place] [address] 96 [place] [address] Assigned MTM Pharmacist 06/02/22 07/09/22 Srinivas Stern PA-C 909 [place] [address] Assigned Gastroenterology Provider 07/17/22 Bandar Casas RPH [address] [address] Pharmacist Pharmacist 08/18/23 Bandar Casas RPH [address] [place] [address] Assigned MTM Pharmacist 08/27/23 Ayana Zhang PA-C [address] [place] [address] Physician Filter Press Supervisor Rheumatology 04/16/24 Srinivas Stern PA-C [address] [place] [address] Home Infusion Following Provider Gastroenterology 07/11/24 10/05/24 documented as of this encounter
--- OUTSIDE RECORDS SUMMARY | 2025-01-15 17:24 | XMS_ITS | Encounter Summary ---
Author Organization [place] Address [address] [place] [address]. [place] [address] Care Team Providers Care Labor Relations Analyst Name Role Phone Jairo Vasquez MD Primary Care Provider Kylee Dailey MD Unavailable + Kayode Ivey MD Unavailable [phone] Nicolasa Perez APRN WASH HOUSE SUPERVISOR Unavaila ble Srinivas Stern-C Unavailable Srinivas Stern-C Unavailable Bandar Casas [facility] Unavailable Bandar Casas [facility] Unavailable Ayana Zhang-C Unavailable [phone] PitSrinivas mcintosh-C Unavailable [phone] Encounter Details Date Type Department Care Team (Late st Contact Info) Description 10/10/2023 [facility] Medical Advice 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 [address] 4th [place] [address] Alexis Torres MD 420 [place], [place] 866985 Srinivas Stren PA-C [address] [place] [address] [phone] 06/05/2025 3:30 PM CDT Virtual Visit [facility] GI [address] 2nd [place] [address] Kayode Ivey MD [address] [place] [address] 624755 Bandar Casas RPH 420 [facility] 812 [place] [address] documented as of this encounter Visit Diagnoses Not on filedocumented in this encounter Additional Health Concerns Infection Onset Date Last Indicated Resolved Time MRSA-Contact Isolation Comment: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, chest, and elbow 02/17/2016 02/17/2016 C-difficile 10/05/2023 10/05/2023 11/04/2023 11:3 9 PM CLEANING LABORER Rule Out C-difficile 09/03/2024 09/04/2024 025 12:45 PM CLEANING LABORER Assessment Noted Time PHQ-9 Depression Total Score: 9 03/02/20 16 7:16 AM CDT documented as of this encounter Care Teams Labor Relations Analyst Relationship Specialty Start Date End Date Jairo Vasquez MD PCP - General Family Medicine - Sports Medicine 12/29/15 Kylee Dailey MD [address] [place] [address] Internal Medicine 04/01/17 Kayode Ivey MD [address] [place] [address] Gastroenterology 04/01/17 Nicolasa Perez APRN WASH HOUSE SUPERVISOR [address] [place] [id number] [address] Nurse Practitioner Nurse Practitioner 04/28/17 Srinivas Stern PA-C [address] [place] [address] Physician Telecommunications Switch Technician Physician Telecommunications Switch Technician 10/02/18 Srinivas Stern PA-C [address] [place] [address] [place] [address] Assigned Gastroenterology Provider 07/17/22 Bandar Casas RPH [address] [phone] Pharmacist Pharmacist 08/18/23 Bandar Casas RPH [address] 234195 Assigned MTM Pharmacist 08/27/23 Ayana Zhang PA-C 5200 [place] [address] Physician Telecommunications Switch Technician Rheumatology 04/16/24 Srinivas Stern PA-C 909 [place] [address] Home Infusion Following Provider Gastroenterology 07/11/24 10/05/24 documented as of this encounter
--- OUTSIDE RECORDS SUMMARY | 2025-01-15 17:24 | XMS_ITS | Encounter Summary ---
Author Organization [place] Address [address] [place] [address] Care Team Providers Care Solutions Executive Cloud Sales Name Role Phone Jairo Vasquez MD Primary Care Provider [phone] Kylee Dailey MD Unavailable + Kayode Ivey MD Unavailable [phone] Nicolasa Perez APRN CONSUMER 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 Unavaila ble Loyda Dickey RN Unavailable +[phone] Srinivas Stern PA-C Unavailable +[phone] Srinivas Stern PA-C Unavailable +[phone] Violet Ta [facility] Unavailable +[phone] Sue Mckeon [facility] Unavailable +[phone] Karen Trinh MD Unavailable +[phone] Violet Ta [facility] Unavailable +[phone] Violet Ta [facility] Unavailable +[phone] Srinivas Stern PA-C Unavailable +[phone] Bandar Casas [facility] Unavailable [phone] Bandar Casas [facility] Unavailable Ayana Zhang PA-C Unavailable [phone] Srinivas Stern PA-C Unavailable [phone] Encounter Details Date Type Department Care Team (Late st Contact Info) Description 07/29/2017 MyC Medical Advice [facility] Neurology [address] [place] [address] 3rd [place] [address] Eliu Perezmila Pengshameka, FABRIC COATING SUPERVISOR CONSUMER 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 909 [facility] [id number] [place] [address] Social History Tobacco Use Types Packs/Day Years Used Date Smoking Tobacco: Never Smokeless Tobacco: Never Alcohol Use Standard Drinks/Week Comments Yes 13 (1 standard drink = 0.6 oz pu re alcohol) MONTHLY Sex and Gender Information Value Date Recorded Sex Assigned at Not on file Legal Sex 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 NURSE PRIVATE DUTY Gender Identity Not on file Sexual Orientation Not on file 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 [address] [facility] [address] [place] [address] Kayode Ivey MD 516 [place] [address] 03/07/2025 3:00 PM CDT Ancillary Procedure [facility] [address] [facility] [address] [place] [address] Srinivas Stern PA-C 9 [place] [address] 04/24/2025 2:40 PM CDT Virtual Visit [facility] [address] 4th [place] [address] Alexis Torres MD 420 [place] [address] Srinivas Stern PA-C 909 [place] [address] 06/05/2025 3:30 PM CDT Virtual Visit [place] 909 [facility] [address] 2nd [place] [phone] Kayode Ivey MD 516 [place] [address] Bandar Casas, [facility] 420 [facility] 812 [place] [address] documented as of this encounter Visit Diagnoses Not on filedocumented in this encounter Additional Health Concerns Infection Onset Date Last Indicated Resolved Time MRSA-Contact Isolation Comment: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, chest, and elbow 02/17/2016 02/17/2016 Rule Out C-difficile 10/04/2023 10/05/2023 024 7:28 PM NURSE PRIVATE DUTY C-difficile 10/05/2023 10/05/2023 11/04/2023 11:3 9 PM NURSE PRIVATE DUTY Rule Out C-difficile 09/03/2024 09/04/2024 025 12:45 PM NURSE PRIVATE DUTY Assessment Noted Time PHQ-9 Depression Total Score: 9 03/02/20 16 7:16 AM CDT documented as of this encounter Care Teams Solutions Executive Cloud Sales Relationship Specialty Start Date End Date Jairo Vasquez MD PCP - General Family Medicine - Sports Medicine 12/29/15 Kylee Dailey MD [address] [place] [address] [phone] Internal Medicine 04/01/17 Kayode Ivey MD [address] [place] [address] [phone] Gastroenterology 04/01/17 Nicolasa Perez APRN CONSUMER 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 [address] [place] [address] [id number] [place] [address] Nurse Practitioner Nurse Practitioner 04/28/17 Loyda Dickey RN Nurse Coordinator Neurology 05/26/17 02/26/19 Srinivas Stern PA-C [address] [place] [address] 395355 Physician Aboriginal Education Worker Coordinator Physician Aboriginal Education Worker Coordinator 10/02/18 Srinivas Stern PA-C [address] [place] [address] 808235 Assigned Heart and Vascular Provider 11/19/20 06/27/21 Violet Ta [facility] [address] [place] [address] 21190 Pharmacist Pharmacist 12/29/20 02/08/21 Sue Mckeon [facility] [address] [place] [address] 24758 Pharmacist Pharmacist Cushion Installer 02/09/21 06/29/22 Karen Trinh MD [address] [place] [address] 46707 Assigned Infectious Disease Provider 02/08/21 07/30/22 Violet Ta [facility] [address] [place] [address] 6[address] Assigned MTM Pharmacist 02/27/22 05/21/22 Violet Ta [facility] [address] [place] [address] Assigned MTM Pharmacist 06/02/22 07/09/22 Srinivas Stern PA-C 909 [place] [address] Assigned Gastroenterology Provider 07/17/22 Bandar Casas RPH [address] [address] Pharmacist Pharmacist 08/18/23 Bandar Casas RPH [address] [address] Assigned MTM Pharmacist 08/27/23 Ayana Zhang PA-C 5200 [place] [address] Physician Aboriginal Education Worker Coordinator Rheumatology 04/16/24 Srinivas Stern PA-C 909 [place], [place] 249445 Home Infusion Following Provider Gastroenterology 07/11/24 10/05/24 documented as of this encounter
--- OUTSIDE RECORDS SUMMARY | 2025-01-15 17:24 | XMS_ITS | Encounter Summary ---
Author Organization [place] Address [address] [place] [address] Care Team Providers Care Body Masker Name Role Phone Jairo Vasquez MD Primary Care Provider [phone] Kylee Dailey MD Unavailable + Kayode Ivey MD Unavailable [phone] Nicolasa Perez APRN COMMUTATOR TESTER Unavaila ble Loyda Dickey RN Unavailable +[phone] Srinivas Stern PA-C Unavailable +[phone] Srinivas Stern PA-C Unavailable +[phone] Violet Ta [facility] Unavailable +[phone] Sue Mckeon [facility] Unavailable +[phone] Karen Trinh MD Unavailable +[phone] Violet Ta [facility] Unavailable +[phone] Violet Ta [facility] Unavailable +[phone] Srinivas Stern PA-C Unavailable +[phone] Bandar Casas [facility] Unavailable [phone] Bandar Casas [facility] Unavailable Ayana Zhang PA-C Unavailable [phone] Srinivas Stern PA-C Unavailable [phone] Encounter Details Date Type Department Care Team (Late st Contact Info) Description 07/24/2017 MyC Medical Advice [facility] Clinic [address] [place] [address] Kayode Ivey MD 6 [facility], [place] 066215 Social History Tobacco Use Types Packs/Day Years Used Date Smoking Tobacco: Never Smokeless Tobacco: Never Alcohol Use Standard Drinks/Week Comments Yes 13 (1 standard drink = 0.6 oz pu re alcohol) MONTHLY Sex and Gender Information Value Date Recorded Sex Assigned at Not on file Legal Sex 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 PLANT OPERATOR Gender Identity Not on file Sexual Orientation Not on file 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 Plan of Treatment Upcoming Encounters Date Type Department Care Team (Latest Contact Info) Description 02/13/2025 3:20 PM CDT Appointment [facility] [address] [facility] [address] [place] [phone] Kayode Ivey MD 6 [place] [address] 03/07/2025 3:00 PM CDT Ancillary Procedure [address] [place] [address] Srinivas Stern PA-C 9 [place], [place] 552175 04/24/2025 2:40 PM CDT Virtual Visit [facility] [address] [address] Alexis Torres MD 420 [place] [address] Srinivas Stern PA-C 909 [place], [place] [phone] 06/05/2025 3:30 PM CDT Virtual Visit Viola MADERA [facility] 909 [facility] 2nd [place] [phone] Kayode Ivey MD 516 [place] [address] Bandar Casas, [facility] 420 [facility] 812 [place] [address] documented as of this encounter Visit Diagnoses Not on filedocumented in this encounter Additional Health Concerns Infection Onset Date Last Indicated Resolved Time MRSA-Contact Isolation Comment: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, chest, and elbow 02/17/2016 02/17/2016 Rule Out C-difficile 10/04/2023 10/05/2023 024 7:28 PM SELENIUM PLANT OPERATOR C-difficile 10/05/2023 10/05/2023 11/04/2023 11:3 9 PM SELENIUM PLANT OPERATOR Rule Out C-difficile 09/03/2024 09/04/2024 025 12:45 PM SELENIUM PLANT OPERATOR Assessment Noted Time PHQ-9 Depression Total Score: 9 03/02/20 16 7:16 AM CDT documented as of this encounter Care Teams Body Masker Relationship Specialty Start Date End Date Jairo Vasquez MD PCP - General Family Medicine - Sports Medicine 12/29/15 Kylee Dailey MD [address] [place] [address] 2A [place], [place] [phone] Internal Medicine 04/01/17 Kayode Ivey MD [address] [place] [address] Gastroenterology 04/01/17 Nicolasa Perez APRN COMMUTATOR TESTER [address] [place] [address] [id number] [place], [place] 868305 Nurse Practitioner Nurse Practitioner 04/28/17 Loyda Dickey RN Nurse Coordinator Neurology 05/26/17 02/26/19 Srinivas Stern PA-C [address] [place] [address] Physician Railroad Crane Operator Physician Railroad Crane Operator 10/02/18 Srinivas Stern PA-C [address] [place] [address] Assigned Heart and Vascular Provider 11/19/20 06/27/21 Violet Ta [facility] [address] [place] [address] Pharmacist Pharmacist 12/29/20 02/08/21 Sue Mckeon [facility] [address] [place] [address] 476065 Pharmacist Pharmacist Hot Plate Plywood Press Feeder 02/09/21 06/29/22 Karen Trinh MD [address] [place] [address] [phone] Assigned Infectious Disease Provider 02/08/21 07/30/22 Violet Ta [facility] [address] [place] [address] 96 [place], [place] [phone] Assigned MTM Pharmacist 02/27/22 05/21/22 Violet Ta [facility] 480 [facility] [address] [place] [address] Assigned MTM Pharmacist 06/02/22 07/09/22 Srinivas Stern PA-C [address] [place] [address] Assigned Gastroenterology Provider 07/17/22 Bandar Casas RPH 420 [facility] 812 [place] [address] Pharmacist Pharmacist 08/18/23 Bandar Casas RP [address] [address] Assigned MTM Pharmacist 08/27/23 Ayana Zhang PA-C [address] [place] [address] Physician Railroad Crane Operator Rheumatology 04/16/24 Srinivas Stern PA-C 909 [place] [address] Home Infusion Following Provider Gastroenterology 07/11/24 10/05/24 documented as of this encounter
--- OUTSIDE RECORDS SUMMARY | 2025-01-15 17:24 | XMS_ITS | Encounter Summary ---
Author Organization [place] Address [address] [place] [address]. [place] [address] Care Team Providers Care Pricing Supervisor Name Role Phone Jairo Vasquez MD Primary Care Provider Kylee Dailey MD Unavailable + Kayode Ivey MD Unavailable [phone] Nicolasa Perez APRN POULTRY TENDER Unavaila ble Srinivas Stern-C Unavailable Srinivas Stern-C Unavailable [phone] Bandar Casas [facility] Unavailable Bandar Casas [facility] Unavailable Ayana Zhang-C Unavailable [phone] PitSrinivas mcintosh-C Unavailable Encounter Details Date Type Department Care Team (Late st Contact Info) Description 01/16/2024 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 Plan of Treatment Upcoming Encounters Date Type Department Care Team (Latest Contact Info) Description 02/13/2025 3:20 PM CDT Appointment [facility] Imaging [address] [facility] [address] [place] [address] Kayode Ivey MD [address] [place] [address] 03/07/2025 3:00 PM CDT Ancillary Procedure [address] [place] [address] Srinivas Stern PA-C [address] [place] [address] [phone] 04/24/2025 2:40 PM CDT Virtual Visit [facility] [address] 4th [place] [address] Alexis Torres MD 420 [place], [place] 637815 Srinivas Stern PA-C [address] [place] [address] [phone] 06/05/2025 3:30 PM CDT Virtual Visit [facility] GI [address] 2nd [place] [address] Kayode Ivey MD [address] [place] [address] [phone] Bandar Casas RPH 420 [facility] 812 [place] [address] documented as of this encounter Visit Diagnoses Not on filedocumented in this encounter Additional Health Concerns Infection Onset Date Last Indicated Resolved Time MRSA-Contact Isolation Comment: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, chest, and elbow 02/17/2016 02/17/2016 Rule Out C-difficile 09/03/2024 09/04/2024 025 12:45 PM FOURTH OFFICER Assessment Noted Time PHQ-9 Depression Total Score: 9 03/02/20 16 7:16 AM CDT documented as of this encounter Care Teams Pricing Supervisor Relationship Specialty Start Date End Date Jairo Vasquez MD PCP - General Family Medicine - Sports Medicine 12/29/15 Kylee Dailey MD [address] [place] [address] 2A [place], [place] 103135 Internal Medicine 04/01/17 Kayode Ivey MD [address] [place] [address] [phone] Gastroenterology 04/01/17 Nicolasa Perez, MITER SAW OPERATOR POULTRY TENDER [address] [place], [place] [id number] [place], [place] [address] Nurse Practitioner Nurse Practitioner 04/28/17 Srinivas Stern PA-C [address] [place] [address] 086335 Physician Database Marketing Analyst Physician Database Marketing Analyst 10/02/18 Srinivas Stern PA-C [address] [place] [address] Assigned Gastroenterology Provider 07/17/22 Bandar Casas [facility] [address] [place] 938962 [place], [place] 931085 Pharmacist Pharmacist 08/18/23 Bandar Casas [facility] [address] [phone] Assigned MTM Pharmacist 08/27/23 Ayana Zhang PA-C 5200 [place] [address] Physician Database Marketing Analyst Rheumatology 04/16/24 Srinivas Stern PA-C 909 [place], [place] 176865 Home Infusion Following Provider Gastroenterology 07/11/24 10/05/24 documented as of this encounter
--- OUTSIDE RECORDS SUMMARY | 2025-01-15 17:24 | XMS_ITS | Encounter Summary ---
Author Organization [place] Address [address] [place] [address] Care Team Providers Care Corporate Training Manager Name Role Phone Jairo Vasquez MD Primary Care Provider [phone] Kylee Dailey MD Unavailable + Kayode Ivey MD Unavailable [phone] Nicolasa Perez APRN RESERVE OPERATOR Unavaila ble Loyda Dickey RN Unavailable +[phone] Srinivas Stern PA-C Unavailable +[phone] Srinivas Stern PA-C Unavailable +[phone] Violet Ta [facility] Unavailable +[phone] Sue Mckeon [facility] Unavailable +[phone] Karen Trinh MD Unavailable +[phone] Violet Ta [facility] Unavailable +[phone] Voilet Ta [facility] Unavailable +[phone] Srinivas Stern PA-C Unavailable +[phone] Bandar Casas [facility] Unavailable +[phone] Bandar Casas [facility] Unavailable [phone] Ayana Zhang PA-C Unavailable [phone] Srinivas Stern PA-C Unavailable Encounter Details Date Type Department Care Team (Late st Contact Info) Description 03/10/2016 MyC Medical Advice [facility]enterology and IBD Clinic [address] [place] [address] Kayode Ivey MD 6 [place] [address] Social History Tobacco Use Types Packs/Day Years Used Date Smoking Tobacco: Never Alcohol Use Standard Drinks/Week Comments No 0 (1 standard drink = 0.6 oz pur e alcohol) not currently Sex and Gender Information Value Date Recorded Sex Assigned at Not on file Legal Sex 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 HEALTH CARE AIDE Gender Identity Not on file Sexual Orientation Not on file 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 Plan of Treatment Upcoming Encounters Date Type Department Care Team (Latest Contact Info) Description 02/13/2025 3:20 PM CDT Appointment [facility] [address] [facility] [address] [place] [address] Kayode Ivey MD 6 [place] [address] 03/07/2025 3:00 PM CDT Ancillary Procedure [address] [place] [address] Srinivas Stern PA-C [address] [place] [address] [phone] 04/24/2025 2:40 PM CDT Virtual Visit [facility]astroenterology Clinic [address] [address] Alexis Torres MD 420 [place] [address] Srinivas Stern PA-C 909 [place], [place] 293355 06/05/2025 3:30 PM CDT Virtual Visit Viola MADERA MTM 909 [facility] [address] 2nd [place] [phone] Kayode Ivey MD 516 [place] [address] Bandar Casas, [facility] 420 [facility] 812 [place], [place] 457665 documented as of this encounter Visit Diagnoses Not on filedocumented in this encounter Additional Health Concerns Infection Onset Date Last Indicated Resolved Time MRSA-Contact Isolation Comment: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, chest, and elbow 02/17/2016 02/17/2016 Rule Out C-difficile 10/04/2023 10/05/2023 024 7:28 PM HEALTH CARE AIDE C-difficile 10/05/2023 10/05/2023 11/04/2023 11:3 9 PM HEALTH CARE AIDE Rule Out C-difficile 09/03/2024 09/04/2024 025 12:45 PM HEALTH CARE AIDE Assessment Noted Time PHQ-9 Depression Total Score: 9 03/02/20 16 7:16 AM CDT documented as of this encounter Care Teams Corporate Training Manager Relationship Specialty Start Date End Date Jairo Vasquez MD PCP - General Family Medicine - Sports Medicine 12/29/15 Kylee Dailey MD [address] [place] [address] 2A [place] [address] Internal Medicine 04/01/17 Kayode Ivey MD [address] [place] [address] Gastroenterology 04/01/17 Nicolasa Perez APRN RESERVE OPERATOR [address] [place] [address] [id number] [place], [place] 248265 Nurse Practitioner Nurse Practitioner 04/28/17 Loyda Dickey RN Nurse Coordinator Neurology 05/26/17 02/26/19 Srinivas Stern PA-C [address] [place] [address] [phone] Physician Occupational Therapy Professor Physician Occupational Therapy Professor 10/02/18 Srinivas Stern PA-C [address] [place] [address] 657215 Assigned Heart and Vascular Provider 11/19/20 06/27/21 Violet Ta [facility] [address] [place] [address] Pharmacist Pharmacist 12/29/20 02/08/21 Sue Mckeon [facility] [address] [place] [address] 955275 Pharmacist Pharmacist Can Bander Operator 02/09/21 06/29/22 Karen Trinh MD [address] [place] [address] [phone] Assigned Infectious Disease Provider 02/08/21 07/30/22 Violet Ta [facility] [address] [place] [address] [phone] Assigned MTM Pharmacist 02/27/22 05/21/22 Violet Ta [facility] [address] [place] [address] 96 [place] [address] Assigned MTM Pharmacist 06/02/22 07/09/22 Srinivas Stern PA-C 909 [place] [address] Assigned Gastroenterology Provider 07/17/22 Bandar Casas RPH [address] [address] Pharmacist Pharmacist 08/18/23 Bandar Casas RPH [address] [place] [address] Assigned MTM Pharmacist 08/27/23 Ayana Zhang PA-C [address] [place] [address] Physician Occupational Therapy Professor Rheumatology 04/16/24 Srinivas Stern PA-C [address] [place] [address] Home Infusion Following Provider Gastroenterology 07/11/24 10/05/24 documented as of this encounter
--- OUTSIDE RECORDS SUMMARY | 2025-01-15 17:24 | XMS_ITS | Encounter Summary ---
Author Organization [facility] Address [address] [place] [address] 94[address] Care Team Providers Care Adjunct Latin Professor Name Role Phone Jairo Vasquez MD Primary Care Provider [phone] Kylee Dailey MD Unavailable + Kayode Ivey MD Unavailable +[phone] Nciolasa Perez APRN LABORER HEADING Unavaila ble Loyda Dickey RN Unavailable +[phone] Srinivas Stern PA-C Unavailable +[phone] Srinivas Stern PA-C Unavailable +[phone] Violet Ta [facility] Unavailable +[phone] Sue Mckeon [facility] Unavailable +[phone] Karen Trinh MD Unavailable +[phone] Violet Ta [facility] Unavailable +[phone] Violet Ta [facility] Unavailable +[phone] Srinivas Stern PA-C Unavailable +[phone] Bandar Casas [facility] Unavailable +[phone] Bandar Casas [facility] Unavailable Ayana Zhang PA-C Unavailable [phone] Srinivas Stern PA-C Unavailable Encounter Details Date Type Department Care Team (Late st Contact Info) Description 03/02/2016 MyC Medical Advice [facility] [address] [place] [phone] Blanca Menezes, RN Social History Tobacco Use Types Packs/Day Years Used Date Smoking Tobacco: Never Alcohol Use Standard Drinks/Week Comments No 0 (1 standard drink = 0.6 oz pur e alcohol) not currently Sex and Gender Information Value Date Recorded Sex Assigned at Not on file Legal Sex 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 REFRIGERATION SERVICE INSPECTOR Gender Identity Not on file Sexual Orientation Not on file 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 Plan of Treatment Upcoming Encounters Date Type Department Care Team (Latest Contact Info) Description 02/13/2025 3:20 PM CDT Appointment [facility] [address] [facility] [address] [place] [phone] Kayode Ivey MD [address] [place] [address] 03/07/2025 3:00 PM CDT Ancillary Procedure [facility] [address] [facility] [address] [place] [address] Srinivas Stern PA-C [address] [place] [address] [phone] 04/24/2025 2:40 PM CDT Virtual Visit [facility] Gastroenterology Clinic [address] [address] Alexis Torres MD [address] [place], [place] [phone] Srinivas Stern PA-C [address] [place] [address] [phone] 06/05/2025 3:30 PM CDT Virtual Visit [facility] [address] [facility] [address] 2nd [place] [address] Kayode Ivey MD [address] [place], [place] [phone] Bandar Casas, [facility] 420 [facility] 812 [place], [place] 106765 documented as of this encounter Visit Diagnoses Not on filedocumented in this encounter Additional Health Concerns Infection Onset Date Last Indicated Resolved Time MRSA-Contact Isolation Comment: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, chest, and elbow 02/17/2016 02/17/2016 Rule Out C-difficile 10/04/2023 10/05/2023 024 7:28 PM REFRIGERATION SERVICE INSPECTOR C-difficile 10/05/2023 10/05/2023 11/04/2023 11:3 9 PM REFRIGERATION SERVICE INSPECTOR Rule Out C-difficile 09/03/2024 09/04/2024 025 12:45 PM REFRIGERATION SERVICE INSPECTOR Assessment Noted Time PHQ-9 Depression Total Score: 9 03/02/20 16 7:16 AM CDT documented as of this encounter Care Teams Adjunct Latin Professor Relationship Specialty Start Date End Date Jairo Vasquez MD PCP - General Family Medicine - Sports Medicine 12/29/15 Kylee Dailey MD [address] [place], [place] [address]B [address]A [place], [place] [address] Internal Medicine 04/01/17 Kayode Ivey MD [address] [place] [address] Gastroenterology 04/01/17 Nicolasa Perez, FURNITURE REMOVALIST'S ASSISTANT LABORER HEADING [address] [place] [address] [id number] [place] [address] Nurse Practitioner Nurse Practitioner 04/28/17 Loyda Dickey, RN Nurse Coordinator Neurology 05/26/17 02/26/19 Srinivas Stern PA-C [address] [place] [address] 89688 Physician Credit Clerk Physician Credit Clerk 10/02/18 Srinivas Stern PA-C [address] [place] [address] 09806 Assigned Heart and Vascular Provider 11/19/20 06/27/21 [facility] [address] [place] [address] 96678 Pharmacist Pharmacist 12/29/20 02/08/21 Sue Mckeon [facility] [address] [place] [address] 57869 Pharmacist Pharmacist Partnership Marketing Manager 02/09/21 06/29/22 Karen Trinh MD [address] [place] [address] 61990 Assigned Infectious Disease Provider 02/08/21 07/30/22 Violet Ta, [facility] [address] [place] [address] Assigned MTM Pharmacist 02/27/22 05/21/22 Violet Ta [facility] [address] [place] [address] Assigned MTM Pharmacist 06/02/22 07/09/22 Srinivas Stern PA-C 9[address] [place] [address] Assigned Gastroenterology Provider 07/17/22 Bandar Casas [facility] [address] [phone] Pharmacist Pharmacist 08/18/23 Bandar Casas [facility] [address] [phone] Assigned MTM Pharmacist 08/27/23 Ayana Zhang PA-C 5[address] [place] [address] Physician Credit Clerk Rheumatology 04/16/24 Srinivas Stern PA-C [address] [place] [address] Home Infusion Following Provider Gastroenterology 07/11/24 10/05/24 documented as of this encounter
--- OUTSIDE RECORDS SUMMARY | 2025-01-15 17:24 | XMS_ITS | Encounter Summary ---
Author Organization [place] Address [address] [place] [address] Care Team Providers Care Advertising Sales Executive Name Role Phone Jairo Vasquez MD Primary Care Provider [phone] Kylee Dailey MD Unavailable + Kayode Ivey MD Unavailable [phone] Nicolasa Perez APRN NON DESTRUCTIVE TESTING TECHNICIAN Unavaila ble Loyda Dickey RN Unavailable [phone] Srinivas Stern PA-C Unavailable +[phone] Srinivas Stern PA-C Unavailable +[phone] Violet Ta [facility] Unavailable +[phone] Sue Mckeon [facility] Unavailable +[phone] Karen Trinh MD Unavailable +[phone] Violet Ta [facility] Unavailable +[phone] Violet Ta [facility] Unavailable +[phone] Srinivas Stern PA-C Unavailable +[phone] Bandar Casas [facility] Unavailable [phone] Bandar Casas [facility] Unavailable Ayana Zhang PA-C Unavailable [phone] Srinivas Stern PA-C Unavailable [phone] Encounter Details Date Type Department Care Team (Late st Contact Info) Description 10/04/2016 MyC Medical Advice [facility] Gastroenterology and IBD Clinic [address] [place] [phone] Kayode Ivey MD 6 [place] [address] Social History Tobacco Use Types Packs/Day Years Used Date Smoking Tobacco: Never Alcohol Use Standard Drinks/Week Comments No 0 (1 standard drink = 0.6 oz pur e alcohol) not currently Sex and Gender Information Value Date Recorded Sex Assigned at Not on file Legal Sex 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 MACHINE OPERATOR Gender Identity Not on file Sexual Orientation Not on file 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 Plan of Treatment Upcoming Encounters Date Type Department Care Team (Latest Contact Info) Description 02/13/2025 3:20 PM CDT Appointment [facility] Imaging [address] [facility] [address] [place] [phone] Kayode Ivey MD 6 [place] [address] 03/07/2025 3:00 PM CDT Ancillary Procedure [address] [place] [address] Srinivas Stern PA-C [address] [place] [address] [phone] 04/24/2025 2:40 PM CDT Virtual Visit [facility] [address] [address] Alexis Torres MD 420 [place] [address] Srinivas Stern PA-C [address] [place], [place] 0[address]385 06/05/2025 3:30 PM CDT Virtual Visit [facility] MTM 909 [facility] [address] 2nd [place] [phone] Kayode Ivey MD [address] [place] [address] Bandar Casas, [facility] 420 [facility] 812 [place], [place] 951815 documented as of this encounter Visit Diagnoses Not on filedocumented in this encounter Additional Health Concerns Infection Onset Date Last Indicated Resolved Time MRSA-Contact Isolation Comment: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, chest, and elbow 02/17/2016 02/17/2016 Rule Out C-difficile 10/04/2023 10/05/2023 024 7:28 PM BRICK MACHINE OPERATOR C-difficile 10/05/2023 10/05/2023 11/04/2023 11:3 9 PM BRICK MACHINE OPERATOR Rule Out C-difficile 09/03/2024 09/04/2024 025 12:45 PM BRICK MACHINE OPERATOR Assessment Noted Time PHQ-9 Depression Total Score: 9 03/02/20 16 7:16 AM CDT documented as of this encounter Care Teams Advertising Sales Executive Relationship Specialty Start Date End Date Jairo Vasquez MD PCP - General Family Medicine - Sports Medicine 12/29/15 Kylee Dailey MD [address] [place] [address] 2[address] [place] [address] Internal Medicine 04/01/17 Kayode Ivey MD [address] [place] [address] Gastroenterology 04/01/17 Nicolasa Perez APRN NON DESTRUCTIVE TESTING TECHNICIAN [address] [place] [address] [id number] [place], [place] 605765 Nurse Practitioner Nurse Practitioner 04/28/17 Loyda Dickey RN Nurse Coordinator Neurology 05/26/17 02/26/19 Srinivas Stern PA-C [address] [place] [address] [phone] Physician Soils Technician Physician Soils Technician 10/02/18 Srinivas Stern PA-C [address] [place] [address] [phone] Assigned Heart and Vascular Provider 11/19/20 06/27/21 Violet Ta [facility] [address] [place] [address]36 Pharmacist Pharmacist 12/29/20 02/08/21 Sue Mckeon [facility] [address] [place] [address] [phone] Pharmacist Pharmacist Cook Dessert 02/09/21 06/29/22 Karen Trinh MD [address] [place] [address] [phone] Assigned Infectious Disease Provider 02/08/21 07/30/22 Violet Ta [facility] [address] [place] [address] [phone] Assigned MTM Pharmacist 02/27/22 05/21/22 Violet Ta [facility] [address] [place] [address] [address] [place] [address] Assigned MTM Pharmacist 06/02/22 07/09/22 Srinivas Stern PA-C [address] [place] [address] Assigned Gastroenterology Provider 07/17/22 Bandar Casas [facility] [address] [address] Pharmacist Pharmacist 08/18/23 Bandar Casas [facility] [address] [place] [address] Assigned MTM Pharmacist 08/27/23 Ayana Zhang PA-C [address] [place] [address] Physician Soils Technician Rheumatology 04/16/24 Srinivas Stern PA-C [address] [place] [address] Home Infusion Following Provider Gastroenterology 07/11/24 10/05/24 documented as of this encounter
--- OUTSIDE RECORDS SUMMARY | 2025-01-15 17:24 | XMS_ITS | Encounter Summary ---
Author Organization [place] Address [address] [place] [address] Care Team Providers Care Rn Case Management Name Role Phone Jairo Vasquez MD Primary Care Provider [phone] Kylee Dailey MD Unavailable + Kayode Ivey MD Unavailable [phone] Nicolasa Perez APRN TAR HEATER OPERATOR Unavaila ble Loyda Dickey RN Unavailable +[phone] Srinivas Stern PA-C Unavailable +[phone] Srinivas Stern PA-C Unavailable +[phone] Violet Ta [facility] Unavailable +[phone] Sue Mckeon [facility] Unavailable +[phone] Karen Trinh MD Unavailable +[phone] Violet Ta [facility] Unavailable +[phone] Violet Ta [facility] Unavailable +[phone] Srinivas Stern PA-C Unavailable +[phone] Bandar Casas [facility] Unavailable [phone] Bandar Casas [facility] Unavailable Ayana Zhang PA-C Unavailable [phone] Srinivas Stern PA-C Unavailable [phone] Encounter Details Date Type Department Care Team (Late st Contact Info) Description 11/10/2016 MyC Medical Advice [facility] Gastroenterology and IBD Clinic [address] [place] [address] Kayode Ivey MD 6 [place] [address] Social History Tobacco Use Types Packs/Day Years Used Date Smoking Tobacco: Never Alcohol Use Standard Drinks/Week Comments No 0 (1 standard drink = 0.6 oz pur e alcohol) not currently Sex and Gender Information Value Date Recorded Sex Assigned at Not on file Legal Sex 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 MEDIA SERVICES COORDINATOR Gender Identity Not on file Sexual Orientation Not on file 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 Gastroenterology Clinic [address] [address] lAexis Torres MD 420 [place] [address] Srinivas Stern PA-C 909 [place], [place] 564125 06/05/2025 3:30 PM CDT Virtual Visit [facility] MTM 909 [facility] SE 2nd [place] [phone] Kayode Ivey MD [address] [place] [address] Bandar Casas, [facility] 420 [facility] 812 [place], [place] [phone] documented as of this encounter Visit Diagnoses Not on filedocumented in this encounter Additional Health Concerns Infection Onset Date Last Indicated Resolved Time MRSA-Contact Isolation Comment: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, chest, and elbow 02/17/2016 02/17/2016 Rule Out C-difficile 10/04/2023 10/05/2023 024 7:28 PM MEDIA SERVICES COORDINATOR C-difficile 10/05/2023 10/05/2023 11/04/2023 11:3 9 PM MEDIA SERVICES COORDINATOR Rule Out C-difficile 09/03/2024 09/04/2024 025 12:45 PM MEDIA SERVICES COORDINATOR Assessment Noted Time PHQ-9 Depression Total Score: 9 03/02/20 16 7:16 AM CDT documented as of this encounter Care Teams Rn Case Management Relationship Specialty Start Date End Date Jairo Vasquez MD PCP - General Family Medicine - Sports Medicine 12/29/15 Kylee Dailey MD [address] [place] [address] 2[address] [place] [address] Internal Medicine 04/01/17 Kayode Ivey MD [address] [place] [address] Gastroenterology 04/01/17 Nicolasa Perez APRN TAR HEATER OPERATOR [address] [place] [address] [id number] [place], [place] [phone] Nurse Practitioner Nurse Practitioner 04/28/17 Loyda Dickey RN Nurse Coordinator Neurology 05/26/17 02/26/19 Srinivas Stren PA-C [address] [place] [address] [phone] Physician Band Cutting Machine Operator Physician Band Cutting Machine Operator 10/02/18 Srinivas Stern PA-C [address] [place] [address] [phone] Assigned Heart and Vascular Provider 11/19/20 06/27/21 Violet Ta [facility] [address] [place] [address] Pharmacist Pharmacist 12/29/20 02/08/21 Sue Mckeon [facility] [address] [place] [address] [phone] Pharmacist Pharmacist Flitch Hanger 02/09/21 06/29/22 Karen Trinh MD [address] [place] [address] [phone] Assigned Infectious Disease Provider 02/08/21 07/30/22 Violet Ta [facility] [address] [place] [address] [phone] Assigned MTM Pharmacist 02/27/22 05/21/22 Violet Ta [facility] [address] [place] [address] [address] [place] [address] Assigned MTM Pharmacist 06/02/22 07/09/22 Srinivas Stern PA-C 909 [place] [address] Assigned Gastroenterology Provider 07/17/22 Bandar Casas [facility] [address] [address] Pharmacist Pharmacist 08/18/23 Bandar Casas [facility] [address] [place] [address] Assigned MTM Pharmacist 08/27/23 Ayana Zhang PA-C [address] [place] [address] Physician Band Cutting Machine Operator Rheumatology 04/16/24 Srinivas Stern PA-C [address] [place] [address] Home Infusion Following Provider Gastroenterology 07/11/24 10/05/24 documented as of this encounter
--- OUTSIDE RECORDS SUMMARY | 2025-01-15 17:24 | XMS_ITS | Encounter Summary ---
Author Organization [place] Address [address] [place] [address] Care Team Providers Care Judicial Registrar Name Role Phone Jairo Vasquez MD Primary Care Provider Kylee Dailey MD Unavailable + Kayode Ivey MD Unavailable [phone] Nicolasa Perez APRN CENTERLESS GRINDER TENDER Unavaila ble Srinivas Stern PA-C Unavailable Srinivas Stern PA-C Unavailable Bandar Casas [facility] Unavailable [phone] Bandar Casas [facility] Unavailable Ayana Zhang PA-C Unavailable Srinivas Stern PA-C Unavailable Encounter Details Date Type Department Care Team (Late st Contact Info) Description 10/06/2023 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 Plan of Treatment Upcoming Encounters Date Type Department Care Team (Latest Contact Info) Description 02/13/2025 3:20 PM CDT Appointment [facility] [address] [facility] [address] [place] [address] Kayode Ivey MD [address] [place] [address] 03/07/2025 3:00 PM CDT Ancillary Procedure [address] [place] [address] Srinivas Stern PA-C [address] [place] [address] 04/24/2025 2:40 PM CDT Virtual Visit [facility] Gastroenterology Clinic [address] [place] [address] Alexis Torres MD 420 [place], [place] [phone] Srinivas Stern PA-C [address] [place] [address] 06/05/2025 3:30 PM CDT Virtual Visit [facility] GI [address] [phone] Kayode Ivey MD [address] [place] [address] Bandar Casas, [facility] 420 [facility] 812 [place] [address] documented as of this encounter Visit Diagnoses Not on filedocumented in this encounter Additional Health Concerns Infection Onset Date Last Indicated Resolved Time MRSA-Contact Isolation Comment: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, chest, and elbow 02/17/2016 02/17/2016 C-difficile 10/05/2023 10/05/2023 11/04/2023 11:3 9 PM PEDIATRIC DENTAL ASSISTANT Rule Out C-difficile 09/03/2024 09/04/2024 025 12:45 PM PEDIATRIC DENTAL ASSISTANT Assessment Noted Time PHQ-9 Depression Total Score: 9 03/02/20 16 7:16 AM CDT documented as of this encounter Care Teams Judicial Registrar Relationship Specialty Start Date End Date Jairo Vasquez MD PCP - General Family Medicine - Sports Medicine 12/29/15 Kylee Dailey MD [address] [place] [address] 2[address] [place], [place] 059[address] Internal Medicine 04/01/17 Kayode Ivey MD [address] [place] [address] 343505 Gastroenterology 04/01/17 Nicolasa Perez APRN CENTERLESS GRINDER TENDER [address] [place] [address] [place], [place] [address] Nurse Practitioner Nurse Practitioner 04/28/17 Srinivas Stern PA-C [address] [place] [address] 673195 Physician Safety And Health Manager Physician Safety And Health Manager 10/02/18 Srinivas Stern PA-C [address] [place] [address] 467255 Assigned Gastroenterology Provider 07/17/22 Bandar Casas [facility] [address] [phone] Pharmacist Pharmacist 08/18/23 Bandar Casas [facility] [address] [address] Assigned MTM Pharmacist 08/27/23 Ayana Zhang PA-C [address] [place] [address] Physician Safety And Health Manager Rheumatology 04/16/24 Srinivas Stern PA-C [address] [place] [address] 299885 Home Infusion Following Provider Gastroenterology 07/11/24 10/05/24 documented as of this encounter
--- OUTSIDE RECORDS SUMMARY | 2025-01-15 17:24 | XMS_ITS | Encounter Summary ---
Author Organization [facility] Address [address] [place] [address]90 Care Team Providers Care It Systems Administrator Name Role Phone Jairo Vasquez MD Primary Care Provider [phone] Kylee Dailey MD Unavailable + Kayode Ivey MD Unavailable +[phone] Nicolasa Perez APRN SUPERVISOR JEWELRY DEPARTMENT Unavaila ble Loyda Dickey RN Unavailable +[phone] Srinivas Stern PA-C Unavailable +[phone] Srinivas Stern PA-C Unavailable +[phone] Violet Ta [facility] Unavailable +[phone] Sue Mckeon [facility] Unavailable +[phone] Karen Trinh MD Unavailable +[phone] Violet Ta [facility] Unavailable +[phone] Violet Ta [facility] Unavailable +[phone] Srinivas Stern PA-C Unavailable +[phone] Bandar Casas [facility] Unavailable +[phone] Bandar Casas [facility] Unavailable +[phone] Ayana Zhang PA-C Unavailable +[phone] Srinivas Stern PA-C Unavailable +[phone] Encounter Details Date Type Department Care Team (Late st Contact Info) Description 03/11/2016 MyC Medical Advice [facility] Gastroenterology and IBD Clinic [address] [place] [address] Kayode Ivey MD 6 [place] [address] Social History Tobacco Use Types Packs/Day Years Used Date Smoking Tobacco: Never Alcohol Use Standard Drinks/Week Comments No 0 (1 standard drink = 0.6 oz pur e alcohol) not currently Sex and Gender Information Value Date Recorded Sex Assigned at Not on file 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 Sex 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 Gender Identity Not on file Sexual Orientation Not on file 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 Plan of Treatment Upcoming Encounters Date Type Department Care Team (Latest Contact Info) Description 02/13/2025 3:20 PM CDT Appointment [facility] Imaging [address] [facility] [address] [place] [phone] Kayode Ivey MD 6 [place] [address] 03/07/2025 3:00 PM CDT Ancillary Procedure [address] [place] [address] Srinivas Stern PA-C [address] [place] [address] [phone] 04/24/2025 2:40 PM CDT Virtual Visit [facility] Gastroenterology Clinic [address] [address] Alexis Torres MD 420 [place] [address] Srinivas Stern PA-C 909 [place], [place] [phone] 06/05/2025 3:30 PM CDT Virtual Visit Viola MADERA MTM 909 [facility] [address] 2nd [place] [phone] Kayode Ivey MD 516 [place] [address] Bandar Casas, [facility] 420 [facility] 812 [place], [place] 172865 documented as of this encounter Visit Diagnoses Not on filedocumented in this encounter Additional Health Concerns Infection Onset Date Last Indicated Resolved Time MRSA-Contact Isolation Comment: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, chest, and elbow 02/17/2016 02/17/2016 Rule Out C-difficile 10/04/2023 10/05/2023 024 7:28 PM CUSHION SEWER C-difficile 10/05/2023 10/05/2023 11/04/2023 11:3 9 PM CUSHION SEWER Rule Out C-difficile 09/03/2024 09/04/2024 025 12:45 PM CUSHION SEWER Assessment Noted Time PHQ-9 Depression Total Score: 9 03/02/20 16 7:16 AM CDT documented as of this encounter Care Teams It Systems Administrator Relationship Specialty Start Date End Date Jairo Vasquez MD PCP - General Family Medicine - Sports Medicine 12/29/15 Kylee Dailey MD [address] [place] [address] [address] [place] [address] Internal Medicine 04/01/17 Kyaode Ivey MD [address] [place] [address] Gastroenterology 04/01/17 Nicolasa Perez APRN SUPERVISOR JEWELRY DEPARTMENT [address] [place] [address] [id number] [place], [place] [phone] Nurse Practitioner Nurse Practitioner 04/28/17 Loyda Dickey RN Nurse Coordinator Neurology 05/26/17 02/26/19 Srinivas Stern PA-C [address] [place] [address] [phone] Physician Per Diem Nurse Physician Per Diem Nurse 10/02/18 Srinivas Stern PA-C [address] [place] [address] [phone] Assigned Heart and Vascular Provider 11/19/20 06/27/21 Violet Ta [facility] [address] [place] [address] Pharmacist Pharmacist 12/29/20 02/08/21 Sue Mckeon [facility] [address] [place] [address] [phone] Pharmacist Pharmacist Communications Senior Associate 02/09/21 06/29/22 Karen Trinh MD [address] [place] [address] [phone] Assigned Infectious Disease Provider 02/08/21 07/30/22 Violet Ta [facility] [address] [place] [address] [phone] Assigned MTM Pharmacist 02/27/22 05/21/22 Violet Ta [facility] [address] [place] [address] [address] [place] [address] Assigned MTM Pharmacist 06/02/22 07/09/22 Srinivas Stern PA-C 909 [place] [address] Assigned Gastroenterology Provider 07/17/22 Bandar Casas RPH [address] [address] Pharmacist Pharmacist 08/18/23 Bandar Casas RPH [address] [place] [address] Assigned MTM Pharmacist 08/27/23 Ayana Zhang PA-C [address] [place] [address] 30776 Physician Per Diem Nurse Rheumatology 04/16/24 Srinivas Stern PA-C [address] [place] [address] Home Infusion Following Provider Gastroenterology 07/11/24 10/05/24 documented as of this encounter
--- OUTSIDE RECORDS SUMMARY | 2025-01-15 17:24 | XMS_ITS | Encounter Summary ---
Author Organization [place] Address [address] [place] [address] Care Team Providers Care Service Support Representative Name Role Phone Jairo Vasquez MD Primary Care Provider [phone] Kylee Dailey MD Unavailable + Kayode Ivey MD Unavailable +[phone] Nicolasa Perez APRN WATER SANDER Unavaila ble Loyda Dickey RN Unavailable +[phone] Srinivas Stern PA-C Unavailable +[phone] Srinivas Stern PA-C Unavailable +[phone] Violet Ta [facility] Unavailable +[phone] Sue Mckeon [facility] Unavailable +[phone] Karen Trinh MD Unavailable +[phone] Violet Ta [facility] Unavailable +[phone] Violet Ta [facility] Unavailable +[phone] Srinivas Stern PA-C Unavailable +[phone] Bandar Casas [facility] Unavailable +[phone] Bandar Casas [facility] Unavailable Ayana Zhang PA-C Unavailable +[phone] Srinivas Stern PA-C Unavailable [phone] Encounter Details Date Type Department Care Team (Late st Contact Info) Description 04/22/2017 MyC Medical Advice [facility] Gastroenterology and IBD Clinic [address] [place] [phone] Blanca Menezes, RN Social History Tobacco Use Types Packs/Day Years Used Date Smoking Tobacco: Never Alcohol Use Standard Drinks/Week Comments No 0 (1 standard drink = 0.6 oz pur e alcohol) not currently Sex and Gender Information Value Date Recorded Sex Assigned at Not on file Legal Sex 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 CAR PINCHER Gender Identity Not on file Sexual Orientation Not on file 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 Plan of Treatment Upcoming Encounters Date Type Department Care Team (Latest Contact Info) Description 02/13/2025 3:20 PM CDT Appointment [facility] Imaging [address] [facility] [address] [place] [phone] Kayode Ivey MD 516 [place] [address] 03/07/2025 3:00 PM CDT Ancillary Procedure [facility] [address] [facility] [address] [place] [address] Srinivas Stern PA-C [address] [place] [address] [phone] 04/24/2025 2:40 PM CDT Virtual Visit [facility]astroenterology [facility] [address] [address] Alexis Torres MD 420 [place], [place] [phone] Srinivas Stern PA-C [address] [place] [address] [phone] 06/05/2025 3:30 PM CDT Virtual Visit [facility] MTM 909 [facility] [address] 2nd [place] [address] Kayode Ivey MD 516 [place], [place] 975955 Bandar Casas, [facility] 420 [facility] 812 [place], [place] [phone] documented as of this encounter Visit Diagnoses Not on filedocumented in this encounter Additional Health Concerns Infection Onset Date Last Indicated Resolved Time MRSA-Contact Isolation Comment: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, chest, and elbow 02/17/2016 02/17/2016 Rule Out C-difficile 10/04/2023 10/05/2023 024 7:28 PM CAR PINCHER C-difficile 10/05/2023 10/05/2023 11/04/2023 11:3 9 PM CAR PINCHER Rule Out C-difficile 09/03/2024 09/04/2024 025 12:45 PM CAR PINCHER Assessment Noted Time PHQ-9 Depression Total Score: 9 03/02/20 16 7:16 AM CDT documented as of this encounter Care Teams Service Support Representative Relationship Specialty Start Date End Date Jairo Vasquez MD PCP - General Family Medicine - Sports Medicine 12/29/15 Kylee Dailey MD [address] [place], [place] [address]B 2A [place], [place] 864925 Internal Medicine 04/01/17 Kayode Ivey MD [address] [place] [address] Gastroenterology 04/01/17 Nicolasa Perez, MIRROR INSPECTOR WATER SANDER [address] [place] [address] [id number] [place] [address] Nurse Practitioner Nurse Practitioner 04/28/17 Loyda Dickey, RN Nurse Coordinator Neurology 05/26/17 02/26/19 Srinivas Stern PA-C [address] [place] [address] Physician Safety Officer Physician Safety Officer 10/02/18 Srinivas Stern PA-C [address] [place] [address]338 Assigned Heart and Vascular Provider 11/19/20 06/27/21 [facility] [address] [place] [address] 15103 Pharmacist Pharmacist 12/29/20 02/08/21 Sue Mckeon [facility] [address] [place] [address] 77845 Pharmacist Pharmacist Chief Meter Reader 02/09/21 06/29/22 Karen Trinh MD [address] [place] [address] 84510 Assigned Infectious Disease Provider 02/08/21 07/30/22 Violet Ta, [facility] [address] [place] [address] Assigned MTM Pharmacist 02/27/22 05/21/22 Violet Ta [facility] [address] [place] [address] Assigned MTM Pharmacist 06/02/22 07/09/22 Srinivas Stern PA-C 909 [place] [address] Assigned Gastroenterology Provider 07/17/22 Bandar Casas [facility] [address] [phone] Pharmacist Pharmacist 08/18/23 Bandar Casas [facility] [address] [phone] Assigned MTM Pharmacist 08/27/23 Ayana Zhang PA-C 5200 [place] [address] Physician Safety Officer Rheumatology 04/16/24 Srinivas Stern PA-C 909 [place] [address] Home Infusion Following Provider Gastroenterology 07/11/24 10/05/24 documented as of this encounter
--- OUTSIDE RECORDS SUMMARY | 2025-01-15 17:25 | XMS_ITS | Encounter Summary ---
Author Organization [facility] Address [address] [place] [address] Care Team Providers Care Mop Handle Assembler Name Role Phone Jairo Vasquez MD Primary Care Provider [phone] Kylee Dailey MD Unavailable + Kayode Ivey MD Unavailable [phone] Nicolasa Perez APRN WORK MEASUREMENT ENGINEER Unavaila ble Loyda Dickey RN Unavailable +[phone] Srinivas Stern PA-C Unavailable +[phone] Srinivas Stern PA-C Unavailable +[phone] Violet Ta [facility] Unavailable +[phone] Sue Mckeon [facility] Unavailable +[phone] Karen Trinh MD Unavailable +[phone] Violet Ta [facility] Unavailable +[phone] Violet Ta [facility] Unavailable +[phone] Srinivas Stern PA-C Unavailable +[phone] Bandar Casas [facility] Unavailable +[phone] Bandar Casas [facility] Unavailable Ayana Zhang PA-C Unavailable [phone] Srinivas tSern PA-C Unavailable Reason for Visit * Reason Onset Date Comments Prior Auth - Medication 01/24/2019 ERRONEOU S ENTRY, DUPLICATE REQUEST Encounter Details Date Type Department Care Team (Late st Contact Info) Description 01/24/2019 Telephone [facility] Gastroenterology and IBD Clinic 9[address] [facility] 4th [place] [address] Srinivas Stern PA-C 909 [place] [address] Prior Auth - Medication (ERRONEOUS [...] on file 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 Gender Identity Not on file Sexual Orientation [...] 02/13/2025 3:20 PM CDT Appointment [facility] Imaging [address] [facility] [address] [place] [address] Kayode Ivey MD [address] [place] [address] [phone] 03/07/2025 3:00 PM CDT Ancillary Procedure [address] [place] [address] Srinivas Stern PA-C [address] [place] [address] [phone] 04/24/2025 2:40 PM CDT Virtual Visit [facility] Gastroenterology Clinic [address] 4th [place] [address] Alexis Torres MD 420 [place], [place] 538395 Srinivas Stern PA-C [address] [place] [address] [phone] 06/05/2025 3:30 PM CDT Virtual Visit [facility] GI MTM 909 [facility] 2nd [place] [phone] Kayode Ivey MD [address] [place] [address] 240855 Bandar Casas [facility] 420 [facility] 812 [place], [place] 137335 documented as of this encounter Visit Diagnoses Not on filedocumented in this encounter Additional Health Concerns Infection Onset Date Last Indicated Resolved Time MRSA-Contact Isolation Comment: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, chest, and elbow 02/17/2016 02/17/2016 Rule Out C-difficile 10/04/2023 10/05/2023 024 7:28 PM SLIP FEEDER C-difficile 10/05/2023 10/05/2023 11/04/2023 11:3 9 PM SLIP FEEDER Rule Out C-difficile 09/03/2024 09/04/2024 025 12:45 PM SLIP FEEDER Assessment Noted Time PHQ-9 Depression Total Score: 9 03/02/20 16 7:16 AM CDT documented as of this encounter Care Teams Mop Handle Assembler Relationship Specialty Start Date End Date Jairo Vasquez MD PCP - General Family Medicine - Sports Medicine 12/29/15 Kylee Dailey MD [address] [phone] Internal Medicine 04/01/17 Kayode Ivey MD 6 [place], [place] 117965 Gastroenterology 04/01/17 Nicolasa Perez, TRANSPORT TECH WORK MEASUREMENT ENGINEER [address] [place], [place] [address] [place], [place] 1418[address] Nurse Practitioner Nurse Practitioner 04/28/17 Loyda Dickey, BONNIE Nurse Coordinator Neurology 05/26/17 02/26/19 Srinivas Stern PA-C [address] [place] [address] 564225 Physician Corrections Nurse Physician Corrections Nurse 10/02/18 Srinivas Stern PA-C [address] [place] [address] 195535 Assigned Heart and Vascular Provider 11/19/20 06/27/21 [facility] [address] [place] [address]28[address] Pharmacist Pharmacist 12/29/20 02/08/21 Sue Mckeon [facility] [address] [place] [address] 82585 Pharmacist Pharmacist Sports Intern 02/09/21 06/29/22 Karen Trinh MD [address] [place] [address] Assigned Infectious Disease Provider 02/08/21 07/30/22 [facility] [address] [place], [place] [phone] Assigned MTM Pharmacist 02/27/22 05/21/22 [facility] [address] [place], [place] [phone] Assigned MTM Pharmacist 06/02/22 07/09/22 Srinivas Stern PA-C [address] [place] [address] [id number] Assigned Gastroenterology Provider 07/17/22 Bandar Casas, [facility] [address] [address] Pharmacist Pharmacist 08/18/23 Bandar Casas [facility] [address] [address] Assigned MTM Pharmacist 08/27/23 Ayana Zhang PA-C 5200 [place] [address] Physician Corrections Nurse Rheumatology 04/16/24 Srinivas Stern PA-C 909 [place] [address] Home Infusion Following Provider Gastroenterology 07/11/24 10/05/24 documented as of this encounter
--- OUTSIDE RECORDS SUMMARY | 2025-01-15 17:25 | XMS_ITS | Encounter Summary ---
Author Organization [place] [facility] Address [address] [place] [address] Care Team Providers Care Nutrition And Dietetics Instructor Name Role Phone Jairo Vasquez MD Primary Care Provider [phone] Kylee Dailey MD Unavailable + Kayode Ivey MD Unavailable [phone] Nicolasa Perez APRN PROJECT LEADER Unavaila ble Srinivas Stern PA-C Unavailable +[phone] Srinivas Stern PA-C Unavailable +[phone] Violet Ta [facility] Unavailable +[phone] Sue Mckeon [facility] Unavailable [phone] Karen Trinh MD Unavailable +[phone] Violet Ta [facility] Unavailable +[phone] Violet Ta [facility] Unavailable +[phone] Srinivas Stern PA-C Unavailable +[phone] Bandar Casas [facility] Unavailable +[phone] Bandar Casas [facility] Unavailable +[phone] Ayana Zhang PA-C Unavailable +[phone] Srinivas Stern PA-C Unavailable [phone] Encounter Details Date Type Department Care Team (Late st Contact Info) Description 01/06/2021 MyC Medical Advice [facility] Gastroenterology Clinic [address] [phone] Blanca Menezes, RN Social History Tobacco Use Types Packs/Day Years Used Date Smoking Tobacco: Never Smokeless Tobacco: Never Alcohol Use Standard Drinks/Week Comments Yes 13 (1 standard drink = 0.6 oz pu re alcohol) MONTHLY PHQ-2 Answer Date Recorded PHQ-2 Score 2 08/20/2019 Sex and Gender Information Value Date Recorded Sex Assigned at Not on file Legal Sex 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 GYN Gender Identity Not on file Sexual Orientation Not on file 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 Plan of Treatment Upcoming Encounters Date Type Department Care Team (Latest Contact Info) Description 02/13/2025 3:20 PM CDT Appointment [facility] [address] [facility] [address] [place] [phone] Kayode Ivey MD 516 [place], [place] [phone] 03/07/2025 3:00 PM CDT Ancillary Procedure [address] [place] [address] Srinivas Stern PA-C [address] [place] [address] 04/24/2025 2:40 PM CDT Virtual Visit [facility] Gastroenterology Clinic [address] [phone] Alexis Torres MD 420 [place], [place] 185805 Srinivas Stern PA-C [address] [place] [address] 06/05/2025 3:30 PM CDT Virtual Visit [facility] GI MTM 9[address] [facility] [address] 2nd [place] [address] Kayode Ievy MD 516 [place], [place] 466325 Bandar Casas, [facility] 420 [facility] 812 [place], [place] 470875 documented as of this encounter Visit Diagnoses Not on filedocumented in this encounter Additional Health Concerns Infection Onset Date Last Indicated Resolved Time MRSA-Contact Isolation Comment: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, chest, and elbow 02/17/2016 02/17/2016 Rule Out C-difficile 10/04/2023 10/05/2023 024 7:28 PM GYN C-difficile 10/05/2023 10/05/2023 11/04/2023 11:3 9 PM GYN Rule Out C-difficile 09/03/2024 09/04/2024 025 12:45 PM GYN Assessment Noted Time PHQ-9 Depression Total Score: 9 03/02/20 16 7:16 AM CDT documented as of this encounter Care Teams Nutrition And Dietetics Instructor Relationship Specialty Start Date End Date Jairo Vasquez MD PCP - General Family Medicine - Sports Medicine 12/29/15 Kylee Dailey MD [address] [place] [address] [address] [place], [place] 648[address] Internal Medicine 04/01/17 Kayode Ivey MD [address] [place] [address] [phone] Gastroenterology 04/01/17 Nicolasa Perez APRN PROJECT LEADER [address] [place] [address] [id number] [place] [address] Nurse Practitioner Nurse Practitioner 04/28/17 Srinivas Stern PA-C [address] [place] [address]000 Physician Cane Pusher Physician Cane Pusher 10/02/18 Srinivas Stern PA-C [address] [place] [address] [phone] Assigned Heart and Vascular Provider 11/19/20 06/27/21 Violet Ta, [facility] [address] [place] [address] 28524 Pharmacist Pharmacist 12/29/20 02/08/21 Seu Mckeon [facility] [address] [place] [address] 09454 Pharmacist Pharmacist Mold Designer 02/09/21 06/29/22 Karen Trinh MD [address] [place] [address] 17616 Assigned Infectious Disease Provider 02/08/21 07/30/22 Violet Ta, [facility] [address] [place] [address] Assigned MTM Pharmacist 02/27/22 05/21/22 Violet Ta, [facility] [address] [place] [address] Assigned MTM Pharmacist 06/02/22 07/09/22 Srinivas Stern PA-C [address] [place] [address] [phone] Assigned Gastroenterology Provider 07/17/22 Bandar Casas [facility] [address] [place] [address] [phone] Pharmacist Pharmacist 08/18/23 Bandar Casas [facility] [address] [place] [address] [phone] Assigned MTM Pharmacist 08/27/23 Ayana Zhang PA-C [address] [place] [address] 29420 Physician Cane Pusher Rheumatology 04/16/24 Srinivas Stern PA-C [address] [place] [address] 132655 Home Infusion Following Provider Gastroenterology 07/11/24 10/05/24 documented as of this encounter
--- OUTSIDE RECORDS SUMMARY | 2025-01-15 17:25 | XMS_ITS | Encounter Summary ---
Author Organization [place] Address [address] [place] [address]. [place] [address] Care Team Providers Care Silk Screener Name Role Phone Jairo Vasquez MD Primary Care Provider [phone] Kylee Dailey MD Unavailable + Kayode Ivey MD Unavailable [phone] Nicolasa Perez APRN PURSE MAKER Unavaila ble Srinivas Stern-C Unavailable [phone] [facility] Unavailable Bandar Casas [facility] Unavailable [phone] Bandar Casas [facility] Unavailable Ayana Zhang-C Unavailable Srinivas Stern-C Unavailable Encounter Details Date Type Department Care Team (Late st Contact Info) Description 06/01/2023 [facility] [place] [facility] [address] 4th [place] [address] Kira Delgado RN Social History [...] file 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 Gender Identity Not on file Sexual [...] 3:20 PM CDT Appointment [facility] [address] [facility] [address] [place] [address] Kayode Ivey MD [address] [place] [address] 03/07/2025 3:00 PM CDT Ancillary Procedure [facility] 303 [facility] [address] [place] [address] Srinivas Stern PA-C [address] [place] [address] [phone] 04/24/2025 2:40 PM CDT Virtual Visit [facility] [address] 4th [place] [address] Alexis Torres MD 420 [place], [place] [address] Srinivas Stern PA-C [address] [place] [address] [phone] 06/05/2025 3:30 PM CDT Virtual Visit [facility] [address] 2nd [place] [address] Kayode Ivey MD [address] [place] [address] Bandar aCsas, [facility] 420 [facility] 812 [place] [address] documented as of this encounter Visit Diagnoses Not on filedocumented in this encounter Additional Health Concerns Infection Onset Date Last Indicated Resolved Time MRSA-Contact Isolation Comment: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, chest, and elbow 02/17/2016 02/17/2016 Rule Out C-difficile 10/04/2023 10/05/2023 024 7:28 PM BUS OPERATOR C-difficile 10/05/2023 10/05/2023 11/04/2023 11:3 9 PM BUS OPERATOR Rule Out C-difficile 09/03/2024 09/04/2024 025 12:45 PM BUS OPERATOR Assessment Noted Time PHQ-9 Depression Total Score: 9 03/02/20 16 7:16 AM CDT documented as of this encounter Care Teams Silk Screener Relationship Specialty Start Date End Date Jairo Vasquez MD PCP - General Family Medicine - Sports Medicine 12/29/15 Kylee Dailey MD [address] [place], [place] [address]B 2A [place] [address] Internal Medicine 04/01/17 Kayode Ivey MD 6 [place] [address] Gastroenterology 04/01/17 Nicolasa Perez APRN PURSE MAKER [address] [place] [address] [id number] [place] [address] Nurse Practitioner Nurse Practitioner 04/28/17 Srinivas Stern PA-C 909 [place], [place] 7[address] Physician Recycling Crew Supervisor Physician Recycling Crew Supervisor 10/02/18 Srinivas Stern PA-C 909 [place], [place] 910605 Assigned Gastroenterology Provider 07/17/22 Bandar Casas RPH [address] [address] Pharmacist Pharmacist 08/18/23 Bandar Casas RPH [address] [address] Assigned MTM Pharmacist 08/27/23 Ayana Zhang PA-C 5200 [place], [place] 8128692 Physician Recycling Crew Supervisor Rheumatology 04/16/24 Srinivas Stern PA-C 9 [place], [place] 223[address] Home Infusion Following Provider Gastroenterology 07/11/24 10/05/24 documented as of this encounter
--- OUTSIDE RECORDS SUMMARY | 2025-01-15 17:25 | XMS_ITS | Encounter Summary ---
Author Organization [place] Address [address] [place] [address] Care Team Providers Care Chimney Mechanic Name Role Phone Jairo Vasquez MD Primary Care Provider [phone] Kylee Dailey MD Unavailable + Kayode Ivey MD Unavailable [phone] Nicolasa Perez APRN ADVENTURE EDUCATION TEACHER Unavaila ble Loyda Dickey RN Unavailable [phone] Srinivas Stern PA-C Unavailable +[phone] Srinivas Stern PA-C Unavailable +[phone] Violet Ta [facility] Unavailable +[phone] Sue Mckeon [facility] Unavailable [phone] Karen Trinh MD Unavailable +[phone] Violet Ta [facility] Unavailable +[phone] Violet Ta [facility] Unavailable +[phone] Srinivas Stern PA-C Unavailable +[phone] Bandar Casas [facility] Unavailable +[phone] Bandar Casas [facility] Unavailable Ayana Zhang PA-C Unavailable [phone] Srinivas Stern PA-C Unavailable Encounter Details Date Type Department Care Team (Latest Contact Info) Description 02/15/2019 External Order Results [facility] [address] [place] [address] UC (ulcerative colitis) (H) Social History Tobacco Use Types Packs/Day Years Used Date Smoking Tobacco: Never Smokeless Tobacco: Never Alcohol Use Standard Drinks/Week Comments Yes 13 (1 standard drink = 0.6 oz pu re alcohol) MONTHLY Sex and Gender Information Value Date Recorded Sex Assigned at Not on file 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 Gender Identity Not on file Sexual Orientation Not on file 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 Plan of Treatment Upcoming Encounters Date Type Department Care Team (Latest Contact Info) Description 02/13/2025 3:20 PM CDT Appointment [facility] [address] [facility] [address] [place] [address] Kayode Ivey MD 6 [place], [place] [address] 03/07/2025 3:00 PM CDT Ancillary Procedure [address] [place] [address] Srinivas Stern PA-C [address] [place] [address] 975165 04/24/2025 2:40 PM CDT Virtual Visit [facility] [address] 4th [place] [address] Alexis Torres MD 420 [place], [place] [phone] Srinivas Stern PA-C [address] [place] [address] 156675 06/05/2025 3:30 PM CDT Virtual Visit [facility] MTM [address] [facility] [address] 2nd [place] [address] Kayode Ivey MD [address] [place] [address] Bandar Casas, [facility] 420 [facility] 812 [place] [address] documented as of this encounter [...] Verified by Ariella Carl on 02/16/2019. us Kayodemarquise Ivey MD LAB - BLOOD [...] Out C-difficile 10/04/2023 10/05/2023 024 7:28 PM HAY FARMER C-difficile 10/05/2023 10/05/2023 11/04/2023 11:3 9 PM HAY FARMER Rule Out C-difficile 09/03/2024 09/04/2024 025 12:45 PM HAY FARMER Assessment Noted Time PHQ-9 Depression Total Score: 9 03/02/20 16 7:16 AM CDT documented as of this encounter Care Teams Chimney Mechanic Relationship Specialty Start Date End Date Jairo Vasquez MD PCP - General Family Medicine - Sports Medicine 12/29/15 Kylee Dailey MD [address] [place], [place] [address]B 2A [place] [address] Internal Medicine 04/01/17 Kayode Ivey MD [address] [place] [address] Gastroenterology 04/01/17 Nicolasa Perez APRN ADVENTURE EDUCATION TEACHER [address] [place], [place] [address] [place] [address] Nurse Practitioner Nurse Practitioner 04/28/17 Loyda Dickey, RN Nurse Coordinator Neurology 05/26/17 02/26/19 Srinivas Stern PA-C [address] [place] [address] Physician Crop Research Scientist Physician Crop Research Scientist 10/02/18 Srinivas Stern PA-C [address] [place] [address] Assigned Heart and Vascular Provider 11/19/20 06/27/21 Violet Ta [facility] [address] [place] [address] Pharmacist Pharmacist 12/29/20 02/08/21 Sue Mckeon [facility] [address] [place] [address] Pharmacist Pharmacist Rivet Sticker 02/09/21 06/29/22 Karen Trinh MD [address] [place] [address] 425715 Assigned Infectious Disease Provider 02/08/21 07/30/22 Violet Ta [facility] [address] [place] [address] Assigned MTM Pharmacist 02/27/22 05/21/22 Violet Ta, [facility] [address] [place] [address] Assigned MTM Pharmacist 06/02/22 07/09/22 Srinivas Stern PA-C 909 [place], [place] 160805 Assigned Gastroenterology Provider 07/17/22 Bandar Casas R[facility] 420 [facility] 812 [place] [address] Pharmacist Pharmacist 08/18/23 Bandar Casas RPH 420 [place] 823092 [place] [address] Assigned MTM Pharmacist 08/27/23 Ayana Zhang PA-C 5200 [place] [address] Physician Crop Research Scientist Rheumatology 04/16/24 Srinivas Stern PA-C 909 [place], [place] 0[address]485 Home Infusion Following Provider Gastroenterology 07/11/24 10/05/24 documented as of this encounter
--- OUTSIDE RECORDS SUMMARY | 2025-01-15 17:25 | XMS_ITS | Encounter Summary ---
Author Organization [place] Address [address] [place] [address] Care Team Providers Care Engineering Executive Name Role Phone Jairo Vasquez MD Primary Care Provider [phone] Kylee Dailey MD Unavailable + Kayode Ivey MD Unavailable [phone] Nicolasa Perez APRN CONSERVATION OF RESOURCES COMMISSIONER Unavaila ble Srinivas Stern PA-C Unavailable +[phone] Srinivas Stern PA-C Unavailable [phone] Violet Ta [facility] Unavailable +[phone] Sue Mckeon [facility] Unavailable [phone] Karen Trinh MD Unavailable [phone] Violet Ta [facility] Unavailable +[phone] Violet Ta [facility] Unavailable +[phone] Srinivas Stern PA-C Unavailable +[phone] Bandar Casas [facility] Unavailable +[phone] Bandar Casas [facility] Unavailable +[phone] Ayana Zhang PA-C Unavailable [phone] Srinivas Stern PA-C Unavailable [phone] Encounter Details Date Type Department Care Team (Late st Contact Info) Description 01/14/2021 [facility] Medical Advice [facility] [address] [address] Ayana Padilla, RN Social History Tobacco Use Types Packs/Day Years Used Date Smoking Tobacco: Never Smokeless Tobacco: Never Alcohol Use Standard Drinks/Week Comments Yes 13 (1 standard drink = 0.6 oz pu re alcohol) MONTHLY PHQ-2 Answer Date Recorded PHQ-2 Score 2 08/20/2019 Sex and Gender Information Value Date Recorded Sex Assigned at Not on file 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 Gender Identity Not on file Sexual Orientation [...] 02/13/2025 3:20 PM CDT Appointment [facility] [address] [facility] [address] [place] [address] Kayode Ivey MD 6 [place], [place] [phone] 03/07/2025 3:00 PM CDT Ancillary Procedure [facility] [address] [facility] [address] [place] [address] Srinivas Stern PA-C 909 [place] [address] 04/24/2025 2:40 PM CDT Virtual Visit [facility] [address] 4th [place] [address] Alexis Torres MD 420 [place] [address] Srinivas Stern PA-C 909 [place], [place] 15[address]95 06/05/2025 3:30 PM CDT Virtual Visit [facility] 909 [facility] 2nd [place] [address] Kayode Ivey MD 516 [place], [place] [phone] Bandar Casas, [facility] 420 [facility] 812 [place], [place] 762345 documented as of this encounter Visit Diagnoses Not on filedocumented in this encounter Additional Health Concerns Infection Onset Date Last Indicated Resolved Time MRSA-Contact Isolation Comment: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, chest, and elbow 02/17/2016 02/17/2016 Rule Out C-difficile 10/04/2023 10/05/2023 024 7:28 PM WEATHERIZATION CREW LEADER C-difficile 10/05/2023 10/05/2023 11/04/2023 11:3 9 PM WEATHERIZATION CREW LEADER Rule Out C-difficile 09/03/2024 09/04/2024 025 12:45 PM WEATHERIZATION CREW LEADER Assessment Noted Time PHQ-9 Depression Total Score: 9 03/02/20 16 7:16 AM CDT documented as of this encounter Care Teams Engineering Executive Relationship Specialty Start Date End Date Jairo Vasquez MD PCP - General Family Medicine - Sports Medicine 12/29/15 Kylee Dailey MD [address] [place] [address] 2[address] [place] [address] Internal Medicine 04/01/17 Kayode Ivey MD [address] [place] [address] Gastroenterology 04/01/17 Nicolasa Perez APRN CONSERVATION OF RESOURCES COMMISSIONER [address] [place] [address] NO6920TO [place] [address] Nurse Practitioner Nurse Practitioner 04/28/17 Srinivas Stern PA-C [address] [place] [address] Physician Pole Lift Operator Physician Pole Lift Operator 10/02/18 Srinivas Stern PA-C [address] [place] [address] Assigned Heart and Vascular Provider 11/19/20 06/27/21 [facility] [address] [place] [address] Pharmacist Pharmacist 12/29/20 02/08/21 Sue Mckeon [facility] [address] [place] [address] Pharmacist Pharmacist Tube Bender 02/09/21 06/29/22 Karen Trinh MD [address] [place] [address] 478795 Assigned Infectious Disease Provider 02/08/21 07/30/22 Violet Ta, [facility] [address] [place] [address] Assigned MTM Pharmacist 02/27/22 05/21/22 Violet Ta [facility] 480 [facility] [address] [place] [address] Assigned MTM Pharmacist 06/02/22 07/09/22 Srinivas Stern PA-C 909 [place] [address] Assigned Gastroenterology Provider 07/17/22 Bandar Casas [facility] [address] [address] Pharmacist Pharmacist 08/18/23 Bandar Casas [facility] [address] 513815 Assigned MTM Pharmacist 08/27/23 Ayana Zhang PA-C [address] [place] [address] Physician Pole Lift Operator Rheumatology 04/16/24 Srinivas Stern PA-C 909 [place] [address] Home Infusion Following Provider Gastroenterology 07/11/24 10/05/24 documented as of this encounter
--- OUTSIDE RECORDS SUMMARY | 2025-01-15 17:25 | XMS_ITS | Encounter Summary ---
Author Organization [place] Address [address] [place] [address] Care Team Providers Care Product Line Manager Name Role Phone Jairo Vasquez MD Primary Care Provider [phone] Kylee Dailey MD Unavailable + Kayode Ivey MD Unavailable +[phone] Nicolasa Perez APRN BOOT TRIMMER Unavaila ble Srinivas Stern PA-C Unavailable +[phone] Srinivas Stern PA-C Unavailable [phone] Violet Ta [facility] Unavailable +[phone] Sue Mckeon [facility] Unavailable [phone] Karen Trinh MD Unavailable [phone] Violet Ta [facility] Unavailable [phone] Violet Ta [facility] Unavailable +[phone] Srinivas Stern PA-C Unavailable +[phone] Bandar Casas [facility] Unavailable +[phone] Bandar Casas [facility] Unavailable +[phone] Ayana Zhang PA-C Unavailable [phone] Srinivas Stern PA-C Unavailable [phone] Encounter Details Date Type Department Care Team (Late st Contact Info) Description 01/21/2021 MyC Medical Advice [facility] [place] [address] Violet Ta M, [facility] [address] [place] [address] Social History Tobacco Use Types Packs/Day Years Used Date Smoking Tobacco: Never Smokeless Tobacco: Never Alcohol Use Standard Drinks/Week Comments Yes 13 (1 standard drink = 0.6 oz pu re alcohol) MONTHLY PHQ-2 Answer Date Recorded PHQ-2 Score 2 08/20/2019 Sex and Gender Information Value Date Recorded Sex Assigned at Not on file Legal Sex 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 ESTIMATOR AND DRAFTER SUPERVISOR Gender Identity Not on file Sexual [...] CDT Appointment [facility] [address] [facility] [address] [place] [address] Kayode Ivey MD [address] [place] [address] 287865 03/07/2025 3:00 PM CDT Ancillary Procedure [address] [place] [address] Srinivas Stern PA-C [address] [place] [address] 04/24/2025 2:40 PM CDT Virtual Visit [facility] [address] 4th [place] [address] Alexis Torres MD 420 [place], [place] 540565 Srinivas Stern PA-C 909 [place], [place] 8[address]265 06/05/2025 3:30 PM CDT Virtual Visit [facility] 909 [facility] 2nd [place] [address] Kayode Ivey MD 516 [place] [address] Bandar Casas [facility] 420 [facility] 812 [place], [place] 3478[address] documented as of this encounter Visit Diagnoses Not on filedocumented in this encounter Additional Health Concerns Infection Onset Date Last Indicated Resolved Time MRSA-Contact Isolation Comment: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, chest, and elbow 02/17/2016 02/17/2016 Rule Out C-difficile 10/04/2023 10/05/2023 024 7:28 PM ESTIMATOR AND DRAFTER SUPERVISOR C-difficile 10/05/2023 10/05/2023 11/04/2023 11:3 9 PM ESTIMATOR AND DRAFTER SUPERVISOR Rule Out C-difficile 09/03/2024 09/04/2024 025 12:45 PM ESTIMATOR AND DRAFTER SUPERVISOR Assessment Noted Time PHQ-9 Depression Total Score: 9 03/02/20 16 7:16 AM CDT documented as of this encounter Care Teams Product Line Manager Relationship Specialty Start Date End Date Jairo Vasquez MD PCP - General Family Medicine - Sports Medicine 12/29/15 Kylee Dailey MD 6 [facility] [address] 2A [place], [place] 0[address] Internal Medicine 04/01/17 Kayode Ivey MD [address] [place] [address] 243815 Gastroenterology 04/01/17 Nicolasa Perez APRN BOOT TRIMMER [address] [place] [address] [id number] [place], [place] [phone] Nurse Practitioner Nurse Practitioner 04/28/17 Srinivas Stern PA-C [address] [place] [address] [phone] Physician Administrative Operations Coordinator Physician Administrative Operations Coordinator 10/02/18 Srinivas Stern PA-C [address] [place] [address] 329505 Assigned Heart and Vascular Provider 11/19/20 06/27/21 Violet Ta [facility] [address] [place] [address] Pharmacist Pharmacist 12/29/20 02/08/21 Sue Mckeon [facility] [address] [place] [address] Pharmacist Pharmacist Bacon Stringer 02/09/21 06/29/22 Karen Trinh MD [address] [place] [address] 337655 Assigned Infectious Disease Provider 02/08/21 07/30/22 Violet Ta [facility] [address] [place] [address] Assigned MTM Pharmacist 02/27/22 05/21/22 Violet Ta [facility] [address] [place] [address] Assigned MTM Pharmacist 06/02/22 07/09/22 Srinivas Stern PA-C 909 [place] [address] Assigned Gastroenterology Provider 07/17/22 Bandar Casas [facility] [address] [address] Pharmacist Pharmacist 08/18/23 Bandar Casas [facility] [address] [address] Assigned MTM Pharmacist 08/27/23 Ayana Zhang PA-C 5200 [place] [address] Physician Administrative Operations Coordinator Rheumatology 04/16/24 Srinivas Stern PA-C 909 [place] [address] Home Infusion Following Provider Gastroenterology 07/11/24 10/05/24 documented as of this encounter
--- OUTSIDE RECORDS SUMMARY | 2025-01-15 17:25 | XMS_ITS | Encounter Summary ---
Author Organization [place] Address [address] [place] [address]. [place] [address] Care Team Providers Care Utility Helicopter Repairer Name Role Phone Jairo Vasquez MD Primary Care Provider [phone] Kylee Dailey MD Unavailable + Kayode Ivey MD Unavailable [phone] Nicolasa Perez APRN BODY FORMER Unavaila ble Srinivas Stern-C Unavailable [phone] Srinivas Stern-C Unavailable [phone] Bandar Casas [facility] Unavailable Bandar Casas [facility] Unavailable Ayana Zhang-C Unavailable [phone] Srinivas Stern-C Unavailable [phone] Encounter Details Date Type Department Care Team (Late st Contact Info) Description 05/04/2023 [facility] [address] 4th [place] [address] Trisha Cade Social History Tobacco Use Types Packs/Day Years Used Date Smoking Tobacco: Never Smokeless Tobacco: Never Alcohol Use Standard Drinks/Week Comments Yes 13 (1 standard drink = 0.6 oz pu re alcohol) MONTHLY PHQ-2 Answer Date Recorded PHQ-2 Score 0 01/18/2023 Sex and Gender Information Value Date Recorded Sex Assigned at Not on file Legal Sex 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 GEOPHYSICAL LABORATORY CHIEF Gender Identity Not on file Sexual Orientation [...] CDT Appointment [facility] [address] [facility] [address] [place] [address] Kayode Ivey MD [address] [place] [address] 03/07/2025 3:00 PM CDT Ancillary Procedure [facility] [address] [facility] [address] [place] [address] Srinivas Stern PA-C [address] [place] [address] 04/24/2025 2:40 PM CDT Virtual Visit [facility] [address]th [place] [address] Alexis Torres MD 420 [place], [place] [phone] Srinivas Stern PA-C [address] [place] [address] 06/05/2025 3:30 PM CDT Virtual Visit [facility] [address] 2nd [place] [address] Kayode Ivey MD [address] [place] [address] Augusto Bandar, [facility] 420 [facility] 812 [place] [address] documented as of this encounter Visit Diagnoses Not on filedocumented in this encounter Additional Health Concerns Infection Onset Date Last Indicated Resolved Time MRSA-Contact Isolation Comment: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, chest, and elbow 02/17/2016 02/17/2016 Rule Out C-difficile 10/04/2023 10/05/2023 024 7:28 PM GEOPHYSICAL LABORATORY CHIEF C-difficile 10/05/2023 10/05/2023 11/04/2023 11:3 9 PM GEOPHYSICAL LABORATORY CHIEF Rule Out C-difficile 09/03/2024 09/04/2024 025 12:45 PM GEOPHYSICAL LABORATORY CHIEF Assessment Noted Time PHQ-9 Depression Total Score: 9 03/02/20 16 7:16 AM CDT documented as of this encounter Care Teams Utility Helicopter Repairer Relationship Specialty Start Date End Date Jairo Vasquez MD PCP - General Family Medicine - Sports Medicine 12/29/15 Kylee Dailey MD [address] [place], [place] [address]B 2A [place] [address] Internal Medicine 04/01/17 Kayode Ivey MD [address] [place] [address] Gastroenterology 04/01/17 Nicolasa Perez APRN BODY FORMER [address] [place], [place] [address] [address] Nurse Practitioner Nurse Practitioner 04/28/17 Srinivas Stern PA-C [address] [place] [address] Physician Fortune Teller Physician Fortune Teller 10/02/18 Srinivas Stern PA-C [address] [place] [address] Assigned Gastroenterology Provider 07/17/22 Bandar Casas R[facility] [address] [place] [address] 946105 Pharmacist Pharmacist 08/18/23 Bandar Casas [facility] [address] [place] [address] 775455 Assigned MTM Pharmacist 08/27/23 Ayana Zhang PA-C [address] [place] [address] Physician Fortune Teller Rheumatology 04/16/24 Srinivas Stern PA-C [address] [place] [address] Home Infusion Following Provider Gastroenterology 07/11/24 10/05/24 documented as of this encounter
--- OUTSIDE RECORDS SUMMARY | 2025-01-15 17:25 | XMS_ITS | Encounter Summary ---
Author Organization [place] Address [address] [place] [address]. [place] [address] Care Team Providers Care Dictaphone Typist Name Role Phone Jairo Vasquez MD Primary Care Provider Kylee Dailey MD Unavailable + Kayode Ivey MD Unavailable [phone] Nicolasa Perez APRN JUVENILE JUSTICE SPECIALIST Unavaila ble Srinivas Stern-C Unavailable [facility] Unavailable Bandar Casas [facility] Unavailable [phone] Bandar Casas [facility] Unavailable [phone] Ayana Zhang-C Unavailable Srinivas Stern-C Unavailable [phone] Encounter Details Date Type Department Care Team (Late st Contact Info) Description 06/01/2023 [facility] [place] [place] Medical Advice [facility] [address] 4th [place] [address] Kira Delgado RN Social History [...] on file Legal Sex 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 BIKE SHOP MANAGER Gender Identity Not on file Sexual [...] CDT Appointment [facility] [place] [facility] [address] [facility] [address] [place] [phone] Kayode Ivey MD 516 [place] [address] 03/07/2025 3:00 PM CDT Ancillary Procedure [facility] [address] [facility] [address] [place] [address] Srinivas Stern PA-C [address] [place] [address] [phone] 04/24/2025 2:40 PM CDT Virtual Visit [facility] [address] 4th [place] [address] Alexis Torres MD 420 [place], [place] 667395 Srinivas Stern PA-C [address] [place] [address] [id number] 06/05/2025 3:30 PM CDT Virtual Visit [facility] GI [address] 2nd [place] [address] Kayode Ivey MD 516 [place] [address] Bandar Casas, [facility] 420 [facility] 812 [place] [address] documented as of this encounter Visit Diagnoses Not on filedocumented in this encounter Additional Health Concerns Infection Onset Date Last Indicated Resolved Time MRSA-Contact Isolation Comment: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, chest, and elbow 02/17/2016 02/17/2016 Rule Out C-difficile 10/04/2023 10/05/2023 024 7:28 PM BIKE SHOP MANAGER C-difficile 10/05/2023 10/05/2023 11/04/2023 11:3 9 PM BIKE SHOP MANAGER Rule Out C-difficile 09/03/2024 09/04/2024 025 12:45 PM BIKE SHOP MANAGER Assessment Noted Time PHQ-9 Depression Total Score: 9 03/02/20 16 7:16 AM CDT documented as of this encounter Care Teams Dictaphone Typist Relationship Specialty Start Date End Date Jairo Vasquez MD PCP - General Family Medicine - Sports Medicine 12/29/15 Kylee Dailey MD [address] [place], [place] [address] 2[address] [place] [address] Internal Medicine 04/01/17 Kayoed Ivey MD 6 [place] [address] Gastroenterology 04/01/17 Nicolasa Perez APRN JUVENILE JUSTICE SPECIALIST [address] [place] [address] [id number] [place] [address] Nurse Practitioner Nurse Practitioner 04/28/17 Srinivas Stern PA-C [address] [place], [place] 689[address] Physician Maintenance Specialist Physician Maintenance Specialist 10/02/18 Srinivas Stern PA-C [address] [place], [place] 843865 Assigned Gastroenterology Provider 07/17/22 Bandar Casas RPH [address] [address] Pharmacist Pharmacist 08/18/23 Bandar Casas RPH [address] [address] Assigned MTM Pharmacist 08/27/23 Ayana Zhang PA-C 5200 [place], [place] [phone] Physician Maintenance Specialist Rheumatology 04/16/24 Srinivas Stern PA-C 9 [place], [place] 682435 Home Infusion Following Provider Gastroenterology 07/11/24 10/05/24 documented as of this encounter
--- OUTSIDE RECORDS SUMMARY | 2025-01-15 17:25 | XMS_ITS | Encounter Summary ---
Author Organization [place] Address [address] [place] [address] Care Team Providers Care C4 Planner Name Role Phone Jairo Vasquez MD Primary Care Provider [phone] Kylee Dailey MD Unavailable + Kayode Ivey MD Unavailable [phone] Nicolasa Perez APRN CAFETERIA WORKER Unavaila ble Srinivas Stern PA-C Unavailable [phone] PitSrinivas mcintosh PA-C Unavailable [phone] Sue Mckeon [facility] Unavailable [phone] Karen Trinh MD Unavailable [phone] Violet Ta [facility] Unavailable [phone] Violet Ta [facility] Unavailable [phone] PitSrinivas mcintosh PA-C Unavailable [phone] Bandar Casas [facility] Unavailable Bandar Casas [facility] Unavailable Ayana Zhang PA-C Unavailable PitSrinivas mcintosh PA-C Unavailable [phone] Encounter Details Date Type Department Care Team (Late st Contact Info) Description 02/27/2021 [facility] [place] [facility] Specialty MTM 909 [place] [phone] Sue Mckeon, [address] [id number] Social History Tobacco Use Types Packs/Day Years Used Date Smoking Tobacco: Never Smokeless Tobacco: Never Alcohol Use Standard Drinks/Week Comments Yes 13 (1 standard drink = 0.6 oz pu re alcohol) MONTHLY PHQ-2 Answer Date Recorded PHQ-2 Score 1 01/28/2021 Sex and Gender Information Value Date Recorded Sex Assigned at Not on file Legal Sex 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 ACQUISITION LEAD Gender Identity Not on file Sexual [...] Info) Description 02/13/2025 3:20 PM CDT Appointment [facility] [address] [facility] [address] [place] [phone] Kayode Ivey MD 6 [place], [place] 542975 03/07/2025 3:00 PM CDT Ancillary Procedure [facility] [address] [facility] [address] [place] [address] Srinivas Stern PA-C [address] [place] [address] [phone] 04/24/2025 2:40 PM CDT Virtual Visit [facility] [address] 4th [place] [address] Alexis Torres MD 420 [place], [place] 947485 Srinivas Stern PA-C 909 [place], [place] 705515 06/05/2025 3:30 PM CDT Virtual Visit [facility] 909 [facility] 2nd [place] [address] Kayode Ivey MD 516 [place], [place] 507505 Bandar Casas, [facility] 420 [facility] 812 [place], [place] [address]235 documented as of this encounter Visit Diagnoses Not on filedocumented in this encounter Additional Health Concerns Infection Onset Date Last Indicated Resolved Time MRSA-Contact Isolation Comment: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, chest, and elbow 02/17/2016 02/17/2016 Rule Out C-difficile 10/04/2023 10/05/2023 024 7:28 PM ACQUISITION LEAD C-difficile 10/05/2023 10/05/2023 11/04/2023 11:3 9 PM ACQUISITION LEAD Rule Out C-difficile 09/03/2024 09/04/2024 025 12:45 PM ACQUISITION LEAD Assessment Noted Time PHQ-9 Depression Total Score: 9 03/02/20 16 7:16 AM CDT documented as of this encounter Care Teams C4 Planner Relationship Specialty Start Date End Date Jairo Vasquez MD PCP - General Family Medicine - Sports Medicine 12/29/15 Kylee Dailey MD [address] [place] [address] 2A [place], [place] 838855 Internal Medicine 04/01/17 Kayode Ivey MD 6 [place] [address] Gastroenterology 04/01/17 Nicolasa Perez APRN CAFETERIA WORKER [address] [place] [address] [id number] [place] [address] Nurse Practitioner Nurse Practitioner 04/28/17 Srinivas Stern PA-C [address] [place] [address] [phone] Physician Automobile Accessories Installer Physician Automobile Accessories Installer 10/02/18 Srinivas Stern PA-C [address] [place] [address] [id number] Assigned Heart and Vascular Provider 11/19/20 06/27/21 Sue Mckeon [facility] [address] [place] [address] [phone] Pharmacist Pharmacist Pipe Fitter Helper 02/09/21 06/29/22 Karen Trinh MD [address] [place] [address] [id number] Assigned Infectious Disease Provider 02/08/21 07/30/22 [facility] [address] [place] [address] Assigned MTM Pharmacist 02/27/22 05/21/22 Violet Ta, [facility] [address] [place] [address] Assigned MTM Pharmacist 06/02/22 07/09/22 Srinivas Stern PA-C 909 [place], [place] 445685 Assigned Gastroenterology Provider 07/17/22 Bandar Casas RPH [address] [address] Pharmacist Pharmacist 08/18/23 Bandar Casas RP [address] [address] Assigned MTM Pharmacist 08/27/23 Ayana Zhang PA-C [address] [place] [address] [id number] Physician Automobile Accessories Installer Rheumatology 04/16/24 Srinivas Stern PA-C [address] [place] [address] [phone] Home Infusion Following Provider Gastroenterology 07/11/24 10/05/24 documented as of this encounter
--- OUTSIDE RECORDS SUMMARY | 2025-01-15 17:25 | XMS_ITS | Encounter Summary ---
Author Organization [place] Address [address] [place] [address] Care Team Providers Care Materials Supervisor Name Role Phone Jairo Vasquez MD Primary Care Provider [phone] Kylee Dailey MD Unavailable + Kayode Ivey MD Unavailable [phone] Nicolasa Perez APRN ELECTRONIC ENGINEERING TECHNICIAN Unavaila ble Srinivas Stern PA-C Unavailable [phone] Srinivas Stern PA-C Unavailable [phone] Violet Ta [facility] Unavailable [phone] Sue Mckeon [facility] Unavailable [phone] Karen Trinh MD Unavailable [phone] Violet Ta [facility] Unavailable [phone] Violet Ta [facility] Unavailable +[phone] Srinivas Stern PA-C Unavailable [phone] Bandar Casas [facility] Unavailable [phone] Bandar Casas [facility] Unavailable [phone] Ayana Zhang PA-C Unavailable [phone] Srinivas Stern PA-C Unavailable [phone] Encounter Details Date Type Department Care Team (Late st Contact Info) Description 01/12/2021 [facility] Medical Advice [facility] Clinic [address] [phone] Kayode Ivey MD [address] [place] [address] [id number] Social History Tobacco Use Types Packs/Day Years Used Date Smoking Tobacco: Never Smokeless Tobacco: Never Alcohol Use Standard Drinks/Week Comments Yes 13 (1 standard drink = 0.6 oz pu re alcohol) MONTHLY PHQ-2 Answer Date Recorded PHQ-2 Score 2 08/20/2019 Sex and Gender Information Value Date Recorded Sex Assigned at Not on file Legal Sex 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 CUTTING AND SPLICING SUPERVISOR Gender Identity Not on file Sexual [...] [facility] [address] [facility] [address] [place] [address] Kayode Ivey MD [address] [place] [address] [phone] 03/07/2025 3:00 PM CDT Ancillary Procedure [address] [place] [address] Srinivas Stern PA-C [address] [place] [address] [id number] 04/24/2025 2:40 PM CDT Virtual Visit [facility] Gastro[facility]ology Clinic [address] [phone] Alexis Torres MD 420 [place], [place] 462115 Srinivas Stern PA-C 909 [place], [place] [phone] 06/05/2025 3:30 PM CDT Virtual Visit [facility] 909 [facility] 2nd [place] [phone] Kayode Ivey MD 516 [place] [address] Bandar Casas [facility] 420 [facility] 812 [place], [place] 313865 documented as of this encounter Visit Diagnoses Not on filedocumented in this encounter Additional Health Concerns Infection Onset Date Last Indicated Resolved Time MRSA-Contact Isolation Comment: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, chest, and elbow 02/17/2016 02/17/2016 Rule Out C-difficile 10/04/2023 10/05/2023 024 7:28 PM CUTTING AND SPLICING SUPERVISOR C-difficile 10/05/2023 10/05/2023 11/04/2023 11:3 9 PM CUTTING AND SPLICING SUPERVISOR Rule Out C-difficile 09/03/2024 09/04/2024 025 12:45 PM CUTTING AND SPLICING SUPERVISOR Assessment Noted Time PHQ-9 Depression Total Score: 9 03/02/20 16 7:16 AM CDT documented as of this encounter Care Teams Materials Supervisor Relationship Specialty Start Date End Date Jairo Vasquez MD PCP - General Family Medicine - Sports Medicine 12/29/15 Kylee Dailey MD 6 [facility] [address] [address]A [place], [place] 336475 Internal Medicine 04/01/17 Kayode Ivey MD [address] [place] [address] [phone] Gastroenterology 04/01/17 Nicolasa Perez APRN ELECTRONIC ENGINEERING TECHNICIAN [address] [place] [address] [id number] [place], [place] [phone] Nurse Practitioner Nurse Practitioner 04/28/17 Srinivas Stern PA-C [address] [place] [address] [phone] Physician Wardrobe Assistant Physician Wardrobe Assistant 10/02/18 Srinivas Stern PA-C [address] [place] [address] [phone] Assigned Heart and Vascular Provider 11/19/20 06/27/21 Violet Ta [facility] [address] [place] [address] Pharmacist Pharmacist 12/29/20 02/08/21 Sue Mckeon [facility] [address] [place] [address] [phone] Pharmacist Pharmacist Mechanical Engineering Draftsperson 02/09/21 06/29/22 Karen Trinh MD [address] [place] [address] 127205 Assigned Infectious Disease Provider 02/08/21 07/30/22 Violet Ta [facility] [address] [place] [address] Assigned MTM Pharmacist 02/27/22 05/21/22 Violet Ta [facility] [address] [place] [address] Assigned MTM Pharmacist 06/02/22 07/09/22 Srinivas Stern PA-C 909 [place] [address] Assigned Gastroenterology Provider 07/17/22 Bandar Casas RPH [address] [address] Pharmacist Pharmacist 08/18/23 Bandar Casas RPH [address] [address] Assigned MTM Pharmacist 08/27/23 Ayana Zhang PA-C 5200 [place] [address] Physician Wardrobe Assistant Rheumatology 04/16/24 Srinivas Stern PA-C 909 [place], [place] 793825 Home Infusion Following Provider Gastroenterology 07/11/24 10/05/24 documented as of this encounter
--- OUTSIDE RECORDS SUMMARY | 2025-01-15 17:25 | XMS_ITS | Encounter Summary ---
Author Organization [place] Address [address] [place] [address] Care Team Providers Care Car Runner Name Role Phone Jairo Vasquez MD Primary Care Provider [phone] Kylee Dailey MD Unavailable + Kayode Ivey MD Unavailable [phone] Nicolasa Perez APRN FLIGHT KITCHEN MANAGER Unavaila ble Loyda Dickey RN Unavailable [phone] Srinivas Stern PA-C Unavailable [phone] Srinivas Stern PA-C Unavailable +[phone] Violet Ta [facility] Unavailable +[phone] Sue Mckeon [facility] Unavailable [phone] Karen Trinh MD Unavailable +[phone] Violet Ta [facility] Unavailable [phone] Violet Ta [facility] Unavailable +[phone] Srinivas Stern PA-C Unavailable +[phone] Bandar Casas [facility] Unavailable [phone] Bandar Casas [facility] Unavailable Ayana Zhang PA-C Unavailable [phone] Srinivas Stern PA-C Unavailable Encounter Details Date Type Department Care Team (Late st Contact Info) Description 04/05/2018 MyC Medical Advice [facility] Neurosurgery [address] [place] [address] 3rd [place] [address] Kamaljit Deleon MD [address] [place] [address] [id number] [place] [address] Social History Tobacco Use Types Packs/Day Years Used Date Smoking Tobacco: Never Smokeless Tobacco: Never Alcohol Use Standard Drinks/Week Comments Yes 13 (1 standard drink = 0.6 oz pu re alcohol) MONTHLY Sex and Gender Information Value Date Recorded Sex Assigned at Not on file Legal Sex 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 INCOMING INSPECTOR Gender Identity Not on file Sexual Orientation Not on file 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 Plan of Treatment Upcoming Encounters Date Type Department Care Team (Latest Contact Info) Description 02/13/2025 3:20 PM CDT Appointment [facility] [address] [facility] [address] [place] [address] Kayode Ivey MD 516 [place] [address] 03/07/2025 3:00 PM CDT Ancillary Procedure [address] [place] [address] Srinivas Stern PA-C [address] [place] [address] 514885 04/24/2025 2:40 PM CDT Virtual Visit [facility] Gastroenterology Clinic [address] [place] [address] Alexis Torres MD 420 [place] [address] Srinivas Stern PA-C 909 [place], [place] [phone] 06/05/2025 3:30 PM CDT Virtual Visit [facility] [place] 909 [facility] 2nd [place] [phone] Kayode Ivey MD 516 [place] [address] Bandar Casas, [facility] 420 [facility] 812 [place] [address] documented as of this encounter Visit Diagnoses Not on filedocumented in this encounter Additional Health Concerns Infection Onset Date Last Indicated Resolved Time MRSA-Contact Isolation Comment: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, chest, and elbow 02/17/2016 02/17/2016 Rule Out C-difficile 10/04/2023 10/05/2023 024 7:28 PM INCOMING INSPECTOR C-difficile 10/05/2023 10/05/2023 11/04/2023 11:3 9 PM INCOMING INSPECTOR Rule Out C-difficile 09/03/2024 09/04/2024 025 12:45 PM INCOMING INSPECTOR Assessment Noted Time PHQ-9 Depression Total Score: 9 03/02/20 16 7:16 AM CDT documented as of this encounter Care Teams Car Runner Relationship Specialty Start Date End Date Jairo Vasquez MD PCP - General Family Medicine - Sports Medicine 12/29/15 Kylee Dailey MD [address] [place] [address] 2[address] [place] [address] Internal Medicine 04/01/17 Kayode Ivey MD [address] [place] [address] Gastroenterology 04/01/17 Nicolasa Perez APRN FLIGHT KITCHEN MANAGER [address] [place] [address] [id number] [place], [place] [phone] Nurse Practitioner Nurse Practitioner 04/28/17 Loyda Dickey RN Nurse Coordinator Neurology 05/26/17 02/26/19 Srinivas Stern PA-C [address] [place] [address] Physician Meat Scrubber Physician Meat Scrubber 10/02/18 Srinivas Stern PA-C [address] [place] [address] Assigned Heart and Vascular Provider 11/19/20 06/27/21 Violet Ta [facility] [address] [place] [address] [phone] Pharmacist Pharmacist 12/29/20 02/08/21 Sue Mckeon [facility] [address] [place] [address] [phone] Pharmacist Pharmacist Co Founder And Cto 02/09/21 06/29/22 Karen Trinh MD [address] [place] [address] [id number] Assigned Infectious Disease Provider 02/08/21 07/30/22 Violet Ta [facility] [address] [place] [address] 96 [place], [place] [phone] Assigned MTM Pharmacist 02/27/22 05/21/22 Violet Ta [facility] 480 [facility] [address] [place] [address] Assigned MTM Pharmacist 06/02/22 07/09/22 Srinivas Stern PA-C [address] [place] [address] Assigned Gastroenterology Provider 07/17/22 Bandar Casas RPH [address] [address] Pharmacist Pharmacist 08/18/23 Bandar Casas RPH [address] [address] Assigned MTM Pharmacist 08/27/23 Ayana Zhang PA-C [address] [place] [address] Physician Meat Scrubber Rheumatology 04/16/24 Srinivas Stern PA-C [address] [place] [address] Home Infusion Following Provider Gastroenterology 07/11/24 10/05/24 documented as of this encounter
--- OUTSIDE RECORDS SUMMARY | 2025-01-15 17:25 | XMS_ITS | Encounter Summary ---
Author Organization [facility] Address [address] [place] [address]32 Care Team Providers Care Drywall Applicator Name Role Phone Jairo Vasquez MD Primary Care Provider [phone] Kylee Dailey MD Unavailable + Kayode Ivey MD Unavailable +[phone] Nicolasa Perez APRN SCREEN EXAMINER Unavaila ble Loyda Dickey RN Unavailable +[phone] Srinivas Stern PA-C Unavailable +[phone] Srinivas Stern PA-C Unavailable +[phone] Violet Ta [facility] Unavailable +[phone] Sue Mckeon [facility] Unavailable +[phone] Karen Trinh MD Unavailable +[phone] Violet Ta [facility] Unavailable +[phone] Violet Ta [facility] Unavailable +[phone] Srinivas Stern PA-C Unavailable +[phone] Bandar Casas [facility] Unavailable +[phone] Bandar Casas [facility] Unavailable +[phone] Ayana Zhang PA-C Unavailable +[phone] Srinivas Stern PA-C Unavailable Encounter Details Date Type Department Care Team (Late st Contact Info) Description 09/22/2017 MyC Medical Advice [facility] [address] [place] [address] Blanca Menezes, RN Social History Tobacco Use Types Packs/Day Years Used Date Smoking Tobacco: Never Smokeless Tobacco: Never Alcohol Use Standard Drinks/Week Comments Yes 13 (1 standard drink = 0.6 oz pu re alcohol) MONTHLY Sex and Gender Information Value Date Recorded Sex Assigned at Not on file Legal Sex 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 NAIL POLISH BRUSH MACHINE FEEDER Gender Identity Not on file Sexual Orientation Not on file 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 Plan of Treatment Upcoming Encounters Date Type Department Care Team (Latest Contact Info) Description 02/13/2025 3:20 PM CDT Appointment [facility] [address] [facility] [address] [place] [phone] Kayode Ivey MD [address] [place] [address] 03/07/2025 3:00 PM CDT Ancillary Procedure [address] [place] [address] Srinivas Stern PA-C [address] [place] [address] 04/24/2025 2:40 PM CDT Virtual Visit [facility] [address] [address] Alexis Torres MD 420 [place], [place] [phone] Srinivas Stern PA-C [address] [place] [address] 06/05/2025 3:30 PM CDT Virtual Visit [facility] 909 [facility] [address] 2nd [place] [address] Kayode Ivey MD [address] [place], [place] 926795 Bandar Casas, [facility] 420 [facility] 812 [place], [place] 542695 documented as of this encounter Visit Diagnoses Not on filedocumented in this encounter Additional Health Concerns Infection Onset Date Last Indicated Resolved Time MRSA-Contact Isolation Comment: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, chest, and elbow 02/17/2016 02/17/2016 Rule Out C-difficile 10/04/2023 10/05/2023 024 7:28 PM NAIL POLISH BRUSH MACHINE FEEDER C-difficile 10/05/2023 10/05/2023 11/04/2023 11:3 9 PM NAIL POLISH BRUSH MACHINE FEEDER Rule Out C-difficile 09/03/2024 09/04/2024 025 12:45 PM NAIL POLISH BRUSH MACHINE FEEDER Assessment Noted Time PHQ-9 Depression Total Score: 9 03/02/20 16 7:16 AM CDT documented as of this encounter Care Teams Drywall Applicator Relationship Specialty Start Date End Date Jairo Vasquez MD PCP - General Family Medicine - Sports Medicine 12/29/15 Kylee Dailey MD [address] [place] [address] [address] [place], [place] 9380[address] Internal Medicine 04/01/17 Kayode Ivey MD [address] [place] [address] 758985 Gastroenterology 04/01/17 Nicolasa Perez APRN SCREEN EXAMINER [address] [place] [address] [id number] [place] [address] Nurse Practitioner Nurse Practitioner 04/28/17 Loyda Dickey, RN Nurse Coordinator Neurology 05/26/17 02/26/19 Srinivas Stern PA-C [address] [place] [address]37 Physician Digital Business Analyst Physician Digital Business Analyst 10/02/18 Srinivas tSern PA-C [address] [place] [address] Assigned Heart and Vascular Provider 11/19/20 06/27/21 [facility] [address] [place] [address] Pharmacist Pharmacist 12/29/20 02/08/21 Sue Mckeon [facility] [address] [place] [address] 28161 Pharmacist Pharmacist Mine Car Mechanic 02/09/21 06/29/22 Karen Trinh MD [address] [place] [address] 32016 Assigned Infectious Disease Provider 02/08/21 07/30/22 Violet Ta, [facility] [address] [place] [address] [address] [place] [address] Assigned MTM Pharmacist 02/27/22 05/21/22 Violet Ta [facility] 480 [facility] [address] [place] [address] Assigned MTM Pharmacist 06/02/22 07/09/22 Srinivas Stern PA-C 909 [place] [address] Assigned Gastroenterology Provider 07/17/22 Bandar Casas [facility] [address] [phone] Pharmacist Pharmacist 08/18/23 Bandar Casas [facility] [address] [place] [address] Assigned MTM Pharmacist 08/27/23 Ayana Zhang PA-C 5200 [place] [address] Physician Digital Business Analyst Rheumatology 04/16/24 Srinivas Stern PA-C 909 [place] [address] Home Infusion Following Provider Gastroenterology 07/11/24 10/05/24 documented as of this encounter
--- OUTSIDE RECORDS SUMMARY | 2025-01-15 17:25 | XMS_ITS | Encounter Summary ---
Author Organization [facility] Address [address] [place] [address] Care Team Providers Care Medical Legal Investigator Name Role Phone Jairo Vasquez MD Primary Care Provider [phone] Kylee Dailey MD Unavailable + Kayode Ivey MD Unavailable +[phone] Nicolasa Perez APRN SAP FICO BUSINESS ANALYST Unavaila ble Srinivas Stern PA-C Unavailable +[phone] Srinivas Stern PA-C Unavailable +[phone] Violet Ta [facility] Unavailable +[phone] Sue Mckeon [facility] Unavailable +[phone] Karen Trinh MD Unavailable +[phone] Violet Ta [facility] Unavailable +[phone] Violet Ta [facility] Unavailable +[phone] Srinivas Stern PA-C Unavailable +[phone] Bandar Casas [facility] Unavailable +[phone] Bandar Casas [facility] Unavailable +[phone] Ayana Zhang PA-C Unavailable [phone] Srinivas Stern PA-C Unavailable [phone] Encounter Details Date Type Department Care Team (Late st Contact Info) Description 01/22/[address] [facility] Gastroenterology Clinic [address] [phone] Kayode Ivey MD [address] [place] [address] 100765 Social History Tobacco Use Types Packs/Day Years Used Date Smoking Tobacco: Never Smokeless Tobacco: Never Alcohol Use Standard Drinks/Week Comments Yes 13 (1 standard drink = 0.6 oz pu re alcohol) MONTHLY PHQ-2 Answer Date Recorded PHQ-2 Score 2 08/20/2019 Sex and Gender Information Value Date Recorded Sex Assigned at Not on file Legal Sex 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 PRAWN TRAWLER HAND Gender Identity Not on file Sexual [...] [facility] [address] [facility] [address] [place] [phone] Kayode Ivey MD [address] [place] [address] 506335 03/07/2025 3:00 PM CDT Ancillary Procedure [address] [place] [address] Srinivas Stern PA-C [address] [place] [address] 433765 04/24/2025 2:40 PM CDT Virtual Visit [facility] Gastroenterology Clinic [address] [phone] Alexis Torres MD 420 [place], [place] 439095 Srinivas Stern PA-C 909 [place], [place] [phone] 06/05/2025 3:30 PM CDT Virtual Visit [facility] 909 [facility] 2nd [place] [phone] Kayode Ivey MD 516 [place] [address] Bandar Casas [facility] 420 [facility] 812 [place], [place] 764925 documented as of this encounter Visit Diagnoses Not on filedocumented in this encounter Additional Health Concerns Infection Onset Date Last Indicated Resolved Time MRSA-Contact Isolation Comment: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, chest, and elbow 02/17/2016 02/17/2016 Rule Out C-difficile 10/04/2023 10/05/2023 024 7:28 PM PRAWN TRAWLER HAND C-difficile 10/05/2023 10/05/2023 11/04/2023 11:3 9 PM PRAWN TRAWLER HAND Rule Out C-difficile 09/03/2024 09/04/2024 025 12:45 PM PRAWN TRAWLER HAND Assessment Noted Time PHQ-9 Depression Total Score: 9 03/02/20 16 7:16 AM CDT documented as of this encounter Care Teams Medical Legal Investigator Relationship Specialty Start Date End Date Jairo Vasquez MD PCP - General Family Medicine - Sports Medicine 12/29/15 Kylee Dailey MD 6 [facility] [address] [place], [place] [address] Internal Medicine 04/01/17 Kayode Ivey MD [address] [place] [address] 842925 Gastroenterology 04/01/17 Nicoalsa Perez APRN SAP FICO BUSINESS ANALYST [address] [place] [address] [id number] [place], [place] [phone] Nurse Practitioner Nurse Practitioner 04/28/17 Srinivas Stern PA-C [address] [place] [address] [phone] Physician Landscaping And Groundskeeping Laborer Physician Landscaping And Groundskeeping Laborer 10/02/18 Srinivas Stern PA-C [address] [place] [address] 690755 Assigned Heart and Vascular Provider 11/19/20 06/27/21 Violet Ta [facility] [address] [place] [address]7512 Pharmacist Pharmacist 12/29/20 02/08/21 Sue Mckeon [facility] [address] [place] [address] [phone] Pharmacist Pharmacist Magisterial District Judge 02/09/21 06/29/22 Karen Trinh MD [address] [place] [address] 726785 Assigned Infectious Disease Provider 02/08/21 07/30/22 Violet Ta [facility] [address] [place] [address] Assigned MTM Pharmacist 02/27/22 05/21/22 Violet Ta [facility] [address] [place] [address] Assigned MTM Pharmacist 06/02/22 07/09/22 Srinivas Stern PA-C 909 [place] [address] Assigned Gastroenterology Provider 07/17/22 Bandar Casas [facility] [address] [address] Pharmacist Pharmacist 08/18/23 Bandar Casas [facility] [address] [address] Assigned MTM Pharmacist 08/27/23 Ayana Zhang PA-C 5200 [place] [address] Physician Landscaping And Groundskeeping Laborer Rheumatology 04/16/24 Srinivas Stern PA-C 909 [place], [place] 495[address] Home Infusion Following Provider Gastroenterology 07/11/24 10/05/24 documented as of this encounter
--- OUTSIDE RECORDS SUMMARY | 2025-01-15 17:25 | XMS_ITS | Encounter Summary ---
Author Organization [facility] Address [address] [place] [address] Care Team Providers Care Iron Cutter Name Role Phone Jairo Vasquez MD Primary Care Provider [phone] Kylee Dailey MD Unavailable + Kayode Ivey MD Unavailable +[phone] Nicolasa Perez APRN CASTINGS TRIMMER Unavaila ble Srinivas Stern PA-C Unavailable +[phone] Srinivas Stern PA-C Unavailable +[phone] Violet Ta [facility] Unavailable +[phone] Sue Mckeon [facility] Unavailable [phone] Karen Trinh MD Unavailable +[phone] Violet Ta [facility] Unavailable +[phone] Violet Ta [facility] Unavailable +[phone] Srinivas Stern PA-C Unavailable +[phone] Bandar Casas [facility] Unavailable +[phone] Bandar Casas [facility] Unavailable +[phone] Ayana Zhang PA-C Unavailable [phone] Srinivas Stern PA-C Unavailable [phone] Encounter Details Date Type Department Care Team (Late st Contact Info) Description 01/16/2021 MyC Medical Advice [facility] [address] [address] Blanca Menezes, RN Social History Tobacco Use Types Packs/Day Years Used Date Smoking Tobacco: Never Smokeless Tobacco: Never Alcohol Use Standard Drinks/Week Comments Yes 13 (1 standard drink = 0.6 oz pu re alcohol) MONTHLY PHQ-2 Answer Date Recorded PHQ-2 Score 2 08/20/2019 Sex and Gender Information Value Date Recorded Sex Assigned at Not on file Legal Sex 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 CLOUD SERVICES ARCHITECT Gender Identity Not on file Sexual Orientation [...] Description 02/13/2025 3:20 PM CDT Appointment [facility] Imaging [address] [facility] [address] [place] [address] Kayode Ivey MD 516 [place], [place] 6[address]45 03/07/2025 3:00 PM CDT Ancillary Procedure [address] [place] [address] Srinivas Stern PA-C 9 [place] [address] 04/24/2025 2:40 PM CDT Virtual Visit [facility] [address] [phone] Alexis Torres MD 420 [place] [address] Srinivas Stern PA-C 909 [place], [place] 139115 06/05/2025 3:30 PM CDT Virtual Visit [facility] 909 [facility] 2nd [place] [phone] Kayode Ivey MD 516 [place], [place] 809965 Bandar Casas, [facility] 420 [facility] 812 [place], [place] 837[address] documented as of this encounter Visit Diagnoses Not on filedocumented in this encounter Additional Health Concerns Infection Onset Date Last Indicated Resolved Time MRSA-Contact Isolation Comment: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, chest, and elbow 02/17/2016 02/17/2016 Rule Out C-difficile 10/04/2023 10/05/2023 024 7:28 PM CLOUD SERVICES ARCHITECT C-difficile 10/05/2023 10/05/2023 11/04/2023 11:3 9 PM CLOUD SERVICES ARCHITECT Rule Out C-difficile 09/03/2024 09/04/2024 025 12:45 PM CLOUD SERVICES ARCHITECT Assessment Noted Time PHQ-9 Depression Total Score: 9 03/02/20 16 7:16 AM CDT documented as of this encounter Care Teams Iron Cutter Relationship Specialty Start Date End Date Jairo Vasquez MD PCP - General Family Medicine - Sports Medicine 12/29/15 Kylee Dailey MD [address] [place] [address] [address] [place] [address] Internal Medicine 04/01/17 Kayode Ivey MD [address] [place] [address] Gastroenterology 04/01/17 Nicolasa Perez APRN CASTINGS TRIMMER [address] [place] [address] [id number] [place] [address] Nurse Practitioner Nurse Practitioner 04/28/17 Srinivas Stern PA-C [address] [place] [address] Physician Senior Clinical Research Associate Physician Senior Clinical Research Associate 10/02/18 Srinivas Stern PA-C [address] [place] [address] Assigned Heart and Vascular Provider 11/19/20 06/27/21 Violet Ta [facility] [address] [place] [address] Pharmacist Pharmacist 12/29/20 02/08/21 Sue Mckeon [facility] [address] [place] [address] Pharmacist Pharmacist Rug Cleaner Helper 02/09/21 06/29/22 Karen Trinh MD [address] [place] [address] Assigned Infectious Disease Provider 02/08/21 07/30/22 Violet Ta, [facility] 480 [facility] [address] [place] [address] Assigned MTM Pharmacist 02/27/22 05/21/22 Violet Ta [facility] 480 [facility] [address] [place] [address] Assigned MTM Pharmacist 06/02/22 07/09/22 Srinivas Stern PA-C 909 [place] [address] Assigned Gastroenterology Provider 07/17/22 Bandar Casas [facility] [address] [address]44[address] Pharmacist Pharmacist 08/18/23 Bandar Casas [facility] [address] 281545 Assigned MTM Pharmacist 08/27/23 Ayana Zhang PA-C 5200 [place] [address] Physician Senior Clinical Research Associate Rheumatology 04/16/24 Srinivas Stern PA-C 909 [place], [place] 567315 Home Infusion Following Provider Gastroenterology 07/11/24 10/05/24 documented as of this encounter
--- OUTSIDE RECORDS SUMMARY | 2025-01-15 17:25 | XMS_ITS | Encounter Summary ---
Author Organization [facility] Address [address] [place] [address] Care Team Providers Care Electromatic Typist Name Role Phone Jairo Vasquez MD Primary Care Provider [phone] Kylee Dailey MD Unavailable + Kayode Ivey MD Unavailable +[phone] Nicolasa Perez APRN DISTILLATION OPERATOR Unavaila ble Srinivas Stern PA-C Unavailable +[phone] Srinivas Stern PA-C Unavailable +[phone] Violet Ta [facility] Unavailable +[phone] Sue Mckeon [facility] Unavailable [phone] Karen Trinh MD Unavailable +[phone] Violet Ta [facility] Unavailable +[phone] Violet Ta [facility] Unavailable +[phone] Srinivas Stern PA-C Unavailable +[phone] Bandar Casas [facility] Unavailable +[phone] Bandar Casas [facility] Unavailable +[phone] Ayana Zhang PA-C Unavailable +[phone] Srinivas Stern PA-C Unavailable +[phone] Encounter Details Date Type Department Care Team (Late st Contact Info) Description 01/12/2021 MyC Medical Advice [facility] Gastroenterology Clinic [address] [phone] Kayode Ivey MD [address] [place] [address] [id number] Social History Tobacco Use Types Packs/Day Years Used Date Smoking Tobacco: Never Smokeless Tobacco: Never Alcohol Use Standard Drinks/Week Comments Yes 13 (1 standard drink = 0.6 oz pu re alcohol) MONTHLY PHQ-2 Answer Date Recorded PHQ-2 Score 2 08/20/2019 Sex and Gender Information Value Date Recorded Sex Assigned at Not on file Legal Sex 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 COMMERCIAL PHOTOGRAPHER Gender Identity Not on file Sexual Orientation [...] Info) Description 02/13/2025 3:20 PM CDT Appointment [facility] [address] [facility] [address] [place] [address] Kayode Ivey MD [address] [place] [address] 844585 03/07/2025 3:00 PM CDT Ancillary Procedure [address] [place] [address] Srinivas Stern PA-C [address] [place] [address] 947415 04/24/2025 2:40 PM CDT Virtual Visit [facility]ology Clinic [address] [phone] Alexis Torres MD 420 [place], [place] 746825 Srinivas Stern PA-C 909 [place], [place] [phone] 06/05/2025 3:30 PM CDT Virtual Visit [facility] 909 [facility] 2nd [place] [phone] Kayode Ivey MD 516 [place] [address] Bandar Casas [facility] 420 [facility] 812 [place], [place] 108015 documented as of this encounter Visit Diagnoses Not on filedocumented in this encounter Additional Health Concerns Infection Onset Date Last Indicated Resolved Time MRSA-Contact Isolation Comment: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, chest, and elbow 02/17/2016 02/17/2016 Rule Out C-difficile 10/04/2023 10/05/2023 024 7:28 PM COMMERCIAL PHOTOGRAPHER C-difficile 10/05/2023 10/05/2023 11/04/2023 11:3 9 PM COMMERCIAL PHOTOGRAPHER Rule Out C-difficile 09/03/2024 09/04/2024 025 12:45 PM COMMERCIAL PHOTOGRAPHER Assessment Noted Time PHQ-9 Depression Total Score: 9 03/02/20 16 7:16 AM CDT documented as of this encounter Care Teams Electromatic Typist Relationship Specialty Start Date End Date Jairo Vasquez MD PCP - General Family Medicine - Sports Medicine 12/29/15 Kylee Dailey MD [address] [facility] [address] [place], [place] 2250[address] Internal Medicine 04/01/17 Kayode Ivey MD [address] [place] [address] 516825 Gastroenterology 04/01/17 Nicolasa Perez APRN DISTILLATION OPERATOR [address] [place] [address] [id number] [place], [place] [phone] Nurse Practitioner Nurse Practitioner 04/28/17 Srinivas Stern PA-C [address] [place] [address] [phone] Physician Tube Cutter Operator Physician Tube Cutter Operator 10/02/18 Srinivas Stern PA-C [address] [place] [address] 813715 Assigned Heart and Vascular Provider 11/19/20 06/27/21 Violet Ta [facility] [address] [place] [address] Pharmacist Pharmacist 12/29/20 02/08/21 Sue Mckeon [facility] [address] [place] [address] 669075 Pharmacist Pharmacist Supply Chain Systems Manager 02/09/21 06/29/22 Karen Trinh MD [address] [place] [address] [phone] Assigned Infectious Disease Provider 02/08/21 07/30/22 Violet Ta [facility] [address] [place] [address] Assigned MTM Pharmacist 02/27/22 05/21/22 Violet Ta [facility] [address] [place] [address] Assigned MTM Pharmacist 06/02/22 07/09/22 Srinivas Stern PA-C 909 [place] [address] Assigned Gastroenterology Provider 07/17/22 Bandar Casas [facility] [address] [address] Pharmacist Pharmacist 08/18/23 Bandar Casas [facility] [address] [address] Assigned MTM Pharmacist 08/27/23 Ayana Zhang PA-C 5200 [place] [address] Physician Tube Cutter Operator Rheumatology 04/16/24 Srinivas Stern PA-C 909 [place], [place] 681795 Home Infusion Following Provider Gastroenterology 07/11/24 10/05/24 documented as of this encounter
--- OUTSIDE RECORDS SUMMARY | 2025-01-15 17:25 | XMS_ITS | Clinical Summary ---
Author Organization [facility] Address [address] [place] [id number] Care Team Providers Care Patient Case Coordinator Name Role Phone Kayode Ivey MD Unavailable Jairo Vasquez MD Primary Care Provider [phone] Allergies Active Allergy Reactions Criticality Noted Date [...] nasal solution (FLONASE)Indicati ons:Nasal congestion Inhale 1 Franklin in both nostrils once daily. 16 g [...] steroid injection of Cervical Spine [place] at [facility]. May 2020: Epidural steroid injection of Cervical Spine C6-7 IL at [facility]. Minimal benefit. Bilateral sensorineural hearing loss 04/04/2018 Overview (04/04/2018): March 2018: formal testing done. Elevated liver function tests 06/30/2017 Overview (06/17/2022): Jun 2017: Hepatology visit [facility], Dr. Kylee Dailey: for elevated liver test [...] sugar was this high. A1c 7.6 at [facility] March 2016. Apr 2016: Follow up Hospital, on NPH 30 Units and Correction SS for Novolog insulin with meals. May 2016: off steroid, blood sugars greatly improved and now off insulin. Needs recheck. Sep 2016: A1c 5.1 essentially off all diabetic medications. Acute ulcerative colitis with rectal bleeding Overview (03/10/2016): February 2016: [facility] Colonoscopy biopsy proven UC. Started on oral steroid, azathioprine, mesalamine. 03/01/16: Dr. Ivey added Infliximab, continue azathioprine and oral steroid. Clostridium difficile diarrhea 02/02/2016 Overview (04/14/2016): Late January 2016: [facility] admission for dizziness after antibiotics, changed to vancomycin. 02/05/16: Dr. Nation suggested: double vanco to 250mg qid, consider retest for c diff, or referal to [facility] or [facility] for fecal transplant?? vs colonoscopy to look for inflammatory bowel? Doesn't want to do repeat colonoscopy with acute Clostridium difficile infection. February 2016: repeat Clostridium difficile test at [facility] negative 02/16/16. March 2016: Recurrence with hospitalization at [facility], on oral vancomycin. Lower abdominal pain 03/24/2015 Overview (02/23/2016): March 2015: GI consult, Levsin was started. Also constipation. February 2016: Colonoscopy diagnosed with Ulcerative Colitis at [facility]. Adjustment disorder with anxious mood 03/04/2014 Overview [...] CT Scan in 1 year, Neurology at [facility] favored not aneurysm. Encounters Date Type Department Care Team Description 5 Refill [facility] [address] [place] [address] Jairo Vasquez MD Refill Request (Amlodipine) 5 4:15 PM CDT Ancillary Procedure [facility] [address] [facility] [address] [place] [address] 5 Travel 5 3:05 PM CDT Office Visit [facility] [address] [place] [address] Jairo Vasquez MD Follow Up (Urgent care visit) 5 Travel 5 1:55 PM CDT - 5 11:59 PM CDT Hospital Encounter [facility] [address] [place] [address] Hilda Rivera, AGRONOMY SUPERVISOR Abdominal pain, LLQ (left lower quadrant) 5 12:45 PM CDT Office Visit [facility] [address] [place] [address] Hilda Rivera, AGRONOMY SUPERVISOR Abdominal Pain 5 Travel 5 8:44 AM CDT - 5 9:09 AM CDT Surgery [facility] [address] [place] [address] Brandon Perales MD ESOPHAGOGASTRODUODENOSCOPY WITH BIOPSY 5 7:32 AM CDT Anesthesia Event [facility] [address] [place] [address] Ginger Garay, OSIEL 5 6:39 AM CDT - 5 8:52 AM CDT Hospital Encounter [facility] [address] [place] [address] Brandon Perales MD Discharge Disposition: Home Self Care 5 Travel 5 Telephone [facility] [address] [place] [address] Dago Ritchie MD Referral 5 Telephone [facility] [address] [facility] [address] [place] [phone] Cardiology, Anw Appointment 5 3:30 PM FACILITY MANAGER HISTOLOGY Office Visit [facility] [address] [place] [address] Jairo Vasquez MD Musculoskeletal Problem (Follow-up back pain ~ LEFT sided pain from neck to low back /Review MRI ) 5 2:55 PM FACILITY MANAGER HISTOLOGY Ancillary Procedure [facility] [address] [facility] [address] [place] [address] 5 2:50 PM FACILITY MANAGER HISTOLOGY Ancillary Procedure [facility] [address] [facility] [address] [place] [address] 5 2:45 PM FACILITY MANAGER HISTOLOGY Ancillary Procedure [facility] [address] [facility] [address] [place] [address] 5 1:30 PM FACILITY MANAGER HISTOLOGY Office Visit [facility] [address] [facility] [address] [place] [address] Deyanira Benítez MD Consult ( Bilateral hand pain, Bilateral hand pain, Neck pain on left side, Left-sided chest pain, Chronic left-sided low back pain with left-sided sciatica /) 5 Travel 5 3:30 PM FACILITY MANAGER HISTOLOGY Ancillary Procedure [facility] [address] [facility] [address] [place] [address] 5 4:50 PM FACILITY MANAGER HISTOLOGY Ancillary Procedure [address] [address] 5 4:10 PM FACILITY MANAGER HISTOLOGY Office Visit [facility] [address] [place] [phone] Hilda Rivera, AGRONOMY SUPERVISOR Cough 5 Travel from Last 3 Months Immunizations Immunization Administration Dates Next Due COVID-19 vaccine (Moderna 100mcg/0.5mL) CESAR RDZ 02/05/2022,10/02/2021,09/04/2021 Hepatitis B (Adult) 06/06/2020,11/19/2019,2015 Influenza, IIV4 08/09/2022, 0,06/25/2019,2017,09/28/2017,04/26/2016 Pneumococcal Poly,23-Valent (Pneumovax) 04/03/2016 Td (Age >=7 Years) 01/26/1991 Tdap 04/23/2013 Family History Medical History Relation Name Comments [facility] Brother Thony reis Stroke Father Stef [...] on file Legal Sex Male 5:27 AM FACILITY MANAGER HISTOLOGY Gender Identity Not on file Sexual Orientation Not on file Occupation Industry Job Start Date Job End Date [employer] Not on file Not on file Not [...] Description 01/17/2025 10:30 AM CDT Office Visit [facility] [address] [place] [address] Dago Ritchie MD [address] [facility] [address] [place] [address] 01/17/2025 3:30 PM CDT Office Visit [facility] [address] [place] [address] Jairo Vasquez MD [address] [place] [address] Health Maintenance Due Date Last Done Comments [...] 3 VIEWS BILATERAL Routine 11/01/2024 2:59 PM FACILITY MANAGER HISTOLOGY Polyarthralgia Chronic left-sided low back pain with left-sided sciatica Ulcerative pancolitis without complication (HC) XR ELBOW 2 VIEWS BILATERAL Routine 11/01 2:52 PM FACILITY MANAGER HISTOLOGY Polyarthralgia Lateral epicondylitis of right elbow Ulcerative pancolitis without complication (HC) XR HAND 2 VIEWS BILATERAL Routine 2024 2:49 PM FACILITY MANAGER HISTOLOGY Polyarthralgia Bilateral hand pain Ulcerative pancolitis without complication (HC) UA W/ SEDIMENT EXAM REFLEXED PER CRITERIA STAT 11/01/2024 2:41 PM FACILITY MANAGER HISTOLOGY COLLETTE positive C-REACTIVE PROTEIN Routine 11/01/2024 2:36 PM FACILITY MANAGER HISTOLOGY Polyarthralgia SEDIMENTATION RATE Routine 11/01/2024 2:36 PM FACILITY MANAGER HISTOLOGY Polyarthralgia URIC ACID Routine 11/01/2024 2:36 PM FACILITY MANAGER HISTOLOGY Polyarthralgia RA QUANTITATIVE Routine 11/01/2024 2:36 PM FACILITY MANAGER HISTOLOGY Polyarthralgia CYCLIC CITRULLINE PEPTIDE Routine 2024 2:36 PM FACILITY MANAGER HISTOLOGY Polyarthralgia HLA B 27 DISEASE ASSOCIATION Routine 2:36 PM FACILITY MANAGER HISTOLOGY Polyarthralgia Lateral epicondylitis of right elbow Ulcerative pancolitis without complication (HC) ANTI HBC Routine 11/01/2024 2:36 PM FACILITY MANAGER HISTOLOGY Polyarthralgia HBSAG (HBS) Routine 11/01/2024 2:36 PM FACILITY MANAGER HISTOLOGY Polyarthralgia ANTI HCV Routine 11/01/2024 2:36 PM FACILITY MANAGER HISTOLOGY Polyarthralgia TSH Routine 11/01/2024 2:36 PM FACILITY MANAGER HISTOLOGY Polyarthralgia C4 COMPLEMENT Routine 11/01/2024 2:36 PM FACILITY MANAGER HISTOLOGY COLLETTE positive C3 COMPLEMENT Routine 11/01/2024 2:36 PM FACILITY MANAGER HISTOLOGY COLLETTE positive DNA DOUBLE-STRANDED (DSDNA) ANTIBODIES BY KARLY HARKINS IFA Routine 11/01/2024 2:36 PM FACILITY MANAGER HISTOLOGY COLLETTE positive PROTEIN/CREAT RATIO,URINE Routine 2024 2:33 PM FACILITY MANAGER HISTOLOGY COLLETTE positive MR SPINE LUMBAR WO Routine 10/26/2024 3:42 PM FACILITY MANAGER HISTOLOGY Chronic left-sided low back pain with left-sided sciatica CBC WITH AUTO DIFFERENTIAL STAT 10/25 5:09 PM FACILITY MANAGER HISTOLOGY Cough, unspecified type BASIC METABOLIC PANEL STAT 10/25/2024 5:09 PM FACILITY MANAGER HISTOLOGY Cough, unspecified type CBC WITH AUTO DIFFERENTIAL STAT 10/25 5:09 PM FACILITY MANAGER HISTOLOGY Cough, unspecified type XR CHEST 2 VIEWS PA AND LATERAL STAT 10/25/2024 5:04 PM FACILITY MANAGER HISTOLOGY Cough, unspecified type LIPID PANEL W REFLEX MEASURE D LDL Routine 08/16/2024 3:16 PM FACILITY MANAGER HISTOLOGY Type 2 diabetes mellitus without complication, with [...] visualized upper thoracic spine. Procedure Note Dmitriy Paec MD, PhD - 01/08/2025 For Patients: As [...] 15:03:19 (Electronically Signed) us Hilda E Furlong AGRONOMY SUPERVISOR CT Final Result * STAT Urinalysis w/ reflex to Microscopic (12/18/2024 2:20 PM CDT) Only the most recent of2 resultswithin the time period is included. COLOR Yellow Yellow Color 12/18/2024 2:29 PM CDT [facility] CLARITY Clear Clear Clarity 12/18/2024 2:29 PM CDT [facility] SPECIFIC GRAVITY,URINE 1.010 1.010, 1.015, 1.020, 1.025 12/18/2024 2:29 PM CDT [facility] PH,URINE 6.0 6.0, 7.0, 8.0, 5.5, 6.5, 7.5, 8.5 12/18/2024 2:29 PM CDT [facility] UROBILINOGEN, QUALITATIVE Normal Normal EU/dl 12/18/2024 2:29 PM CDT [facility] PROTEIN, URINE Negative Negative mg/dL 12/18/2024 2:29 PM CDT [facility] GLUCOSE, URINE Negative Negative mg/dL 12/18/2024 2:29 PM T [facility] KETONES,URINE Negative Negative mg/dL 12/18/2024 2:29 PM CDT [facility] BILIRUBIN,URI NE Negative Negative 12/18/2024 2:29 PM CDT [facility] OCCULT BLOOD,URINE Negative Negative 12/18/2024 2:29 PM T [facility] NITRITE Negative Negative 12/18/2024 2:29 PM CDT [facility] LEUKOCYTE ESTERASE Negative Negative 12/18/2024 2:29 PM T [facility] Urine URINE SPECIMEN / Unknown Non-Blood / Unknown 12/18/2024 2:20 PM CDT 12/18/2024 2:20 PM CDT us Hilda E Furlong AGRONOMY SUPERVISOR URINE Final Result [facility] [address] [place] [address] * LYME SCREEN W/REFLEX (12/18/2024 2:01 PM CDT) LYME AB, SCREEN < or = 0.90 index [facility], Comment: REFERENCE RANGE: < OR = 0.90 [...] OUTS Final Res ult Performing Organization Address City/[facility]/ZIP Co de Phone Number [facility]/[employer] [facility] [address] [place] [address], [facility] [facility], [address] [place] [address] * LIPASE (12/18/2024 2:01 PM CDT) [facility] LIPASE 39 7 - 60 U/L [facility] Blood BLOOD SPECIMEN / Unknown 12/18/2024 2:01 PM CDT 12/18/2024 2:04 PM CDT Jairo Vasquez MD CHEMISTRY Final Res ult [facility] [address] [place] [address], [facility] [facility] [address] [place] [address] * CBC WITH AUTO DIFFERENTIAL (12/18/2024 1:58 PM CDT) Only the most recent of2 resultswithin the time period is included. WHITE BLOOD COUNT 6.7 4.5 - 11.0 thou/cu mm 12/18/2024 2:25 PM [facility] RED BLOOD COUNT 5.41 4.30 - 5.90 mil/cu mm 12/18/2024 2:25 PM [facility] HEMOGLOBIN 16.2 13.5 - 17.5 g/dL 12/18/2024 2:25 PM [facility] HEMATOCRIT 46.8 37.0 - 53.0 % 12/18/2024 2:25 PM [facility] MCV 87 80 - 100 fL 12/18/2024 2:25 PM [facility] MCH 29.9 26.0 - 34.0 pg 12/18/2024 2:25 PM [facility] MCHC 34.6 32.0 - 36.0 g/dL 12/18/2024 2:25 PM [facility] RDW 13.7 11.5 - 15.5 % 12/18/2024 2:25 PM [facility] PLATELET COUNT 212 140 - 440 thou/cu mm 12/18/2024 2:25 PM [facility] MPV 10.4 6.5 - 11.0 fL 12/18/2024 2:25 PM [facility] % NEUT 57.5 % 12/18/2024 2:25 PM [facility] % LYMPH 35.5 % 12/18/2024 2:25 PM [facility] % MONO 5.6 % 12/18/2024 2:25 PM [facility] % EOS 1.0 % 12/18/2024 2:25 PM [facility] % BASO 0.4 % 12/18/2024 2:25 PM [facility] ABSOLUTE NEUTROPHILS 3.9 1.7 - 7.0 thou/cu mm 12/18/2024 2:25 PM [facility] ABSOLUTE LYMPHOCYTES 2.4 0.9 - 2.9 thou/cu mm 12/18/2024 2:25 PM CDT [facility] ABSOLUTE MONOCYTES 0.4 <0.9 thou/cu mm 12/18/2024 2:25 PM CDT [facility] ABSOLUTE EOSINOPHILS 0.1 <0.5 thou/cu mm 12/18/2024 2:25 PM CDT [facility] ABSOLUTE BASOPHILS 0.0 <0.3 thou/cu mm 12/18/2024 2:25 PM T [facility] Blood BLOOD SPECIMEN / Unknown [facility] / Unknown 12/18/2024 1:58 PM CDT 12/18/2024 1:58 PM CDT us Hilda E Nicole AGRONOMY SUPERVISOR HEMATOLOGY Final Result [facility] [address] [place] [address] * (ABNORMAL) STAT Basic Metabolic Panel BMP (12/18/2024 1:58 PM CDT) Only the most recent of2 resultswithin the time period is included. SODIUM 142 136 - 145 mmol/L 12/18/2024 2:45 PM [facility] POTASSIUM 3.9 3.5 - 5.1 mmol/L 12/18/2024 2:45 PM [facility] CHLORIDE 106 98 - 107 mmol/L 12/18/2024 2:45 PM [facility] CO2,TOTAL 27 22 - 29 mmol/L 12/18/2024 2:45 PM [facility] ANION GAP 9 5 - 18 12/18/2024 2:45 PM [facility] GLUCOSE 122(H) 70 - 99 mg/dL 12/18/2024 2:45 PM [facility] CALCIUM 9.8 8.8 - 10.4 mg/dL 12/18/2024 2:45 PM [facility] Comment: Reference ranges for this test were updated on 07/10/2024 to reflect our healthy population more accurately. Reference range changes are not retroactively applied to results, but previous results using the same methodology can be interpreted in the context of the new reference range. BUN 13 6 - 20 mg/dL 12/18/2024 2:45 PM CDT [facility] CREATININE 0.88 0.70 - 1.20 mg/dL 12/18/2024 2:45 PM CDT [facility] BUN/CREAT RATIO 15 10 - 20 2:45 PM CDT [facility] eGFR >90 >90 mL/min/1. 73m2 12/18/2024 2:45 PM CDT [facility] Comment:As of 2021, eG FR is [...] 1:58 PM CDT us Hilda E Furlobandar AGRONOMY SUPERVISOR CHEMISTRY Final Result [facility] [address] [place] [address] * PATH TISSUE EXAM (11/21/2024 7:42 AM CDT) Case Report Pathology Report Case: [id number] Authorizing Provider: Brandon Perales MD Collected: 11/21/2024 0742 Ordering Location: [facility] Received: 11/22/2024 1311 [facility] Pathologist: Adrian Soares MD Specimens: A) - Antrum Biopsy, gastric antrum/ gastric body B) - GE Junction Biopsy 11/26/2024 8:32 AM CDT [facility] EN[facility]AL LABORATORY Final Diagnosis A) STOMACH, ANTRUM AND BODY, BIOPSY: 1. Non-erosive reactive gastropathy (see comment) a. Sampling: Antral and body mucosae b. Distribution: Antral mucosa 2. Negative for inflammation, atrophy and Helicobacter B) GE JUNCTION, BIOPSY: 1. Normal esophageal squamous mucosa 2. Negative for reflux changes and eosinophilic esophagitis 3. Negative for columnar mucosa 11/26/2024 8:32 AM CDT [facility] EN[facility]AL [facility]ORAT[facility] at 0832 CDT Comment A) The likely etiology is an ongoing non-inflammatory type mucosal injury due to a chemical type of injury; this may be due to ingestion of non-steroidal anti-inflammator y drugs, aspirin (via prostaglandin-me diated injury), excess alcohol, corticosteroids, or bile/alkaline reflux, the latter usually in the setting of a gastroenteric anastomosis. 11/26/2024 8:32 AM CDT [facility] Clinical Information Mr. Reis is a 49 y.o. with GERD who undergoes upper GI endoscopy. 11/26/2024 8:32 AM CDT [facility] EN[facility]AL LABORATORY Gross Description A) Received in [...] 11/23/2024 10:49 AM 11/26/2024 8:32 AM CDT [facility] Microscopic Description The final diagnosis is based on microscopic examination of appropriate sections of all specimens. 11/26/2024 8:32 AM CDT [facility] ENTRAL LABORATORY Additional Information Interpreted at [facility] [employer] [facility], Central Laboratory - [address], [place] [address] 11/26/2024 8:32 AM CDT [facility] Biopsy (Antrum Biopsy) 11/21/2024 7:42 AM CDT 11/22/2024 1:11 PM CDT Biopsy specimen (specimen) (GE Junction Biopsy) 11/21/2024 7:44 AM CDT 11/22/2024 1:11 PM CDT Brandon Perales MD PATHOLOGY/CYTOLOGY Final R esult [facility] LAB[facility]ORY [address] [place] [address], [place] * ENDOSCOPY (11/21/2024 7:20 AM CDT) 11/21/2024 7:20 AM CDT Narrative Transcriptions Brandon Perales MD - 11/21/2024 7:51 AM CDT Patient Name: Piotr Reis Procedure Date: 11/21/2024 Gender: Male Date of : 1975 Admit Type: Ambulatory Procedure: Upper GI endoscopy Proceduralist: Brandon Perales MD [facility] Referring MD: Jairo Vasquez MD Indications/Pre-Op Diagnosis: Gastro-esophageal reflux disease Medications: Propofol per Anesthesia Procedure Description: Risk of bleeding, infection, perforation, need for surgery and alternatives discussed. The endoscope GIF-HQ [id number] was introduced through the mouth,and advanced to [...] JOINT 3 VIEWS BILATERAL (11/01/2024 2:59 PM FACILITY MANAGER HISTOLOGY) Anatomical Region Laterality Modality Pelvis, SI JOINTS [employer] catalino 11/01/2024 3:01 PM FACILITY MANAGER HISTOLOGY Narrative 11/01/2024 3:01 PM FACILITY MANAGER HISTOLOGY For Patients: As a result of the [...] @ Nov 01 2024 3:01PM (Electronically Signed) [email or web address] Procedure Note Charbel Dominique MD - 11/01/2024 [...] @ Nov 01 2024 3:01PM (Electronically Signed) [email or web address] us Deyanira Benítez MD GENERAL IMAGING Fin al Result * XR ELBOW 2 VIEWS BILATERAL (11/01/2024 2:52 PM FACILITY MANAGER HISTOLOGY) Anatomical Region Laterality Modality Digital Radiogra phy 11/01/2024 3:00 PM FACILITY MANAGER HISTOLOGY Narrative 11/01/2024 3:00 PM FACILITY MANAGER HISTOLOGY For Patients: As a result of the [...] @ Nov 01 2024 3:00PM (Electronically Signed) [email or web address] Procedure Note Charbel Dominique MD - 11/01/2024 [...] @ Nov 01 2024 3:00PM (Electronically Signed) [email or web address] Deyanira Benítez MD GENERAL IMAGING Fin al Result * XR HAND 2 VIEWS BILATERAL (11/01/2024 2:49 PM FACILITY MANAGER HISTOLOGY) Anatomical Region Laterality Modality HAND L, HAND R, HANDS Digital Ra diography 11/01/2024 2:59 PM FACILITY MANAGER HISTOLOGY Narrative 11/01/2024 2:59 PM FACILITY MANAGER HISTOLOGY For Patients: As a result of the [...] @ Nov 01 2024 2:59PM (Electronically Signed) [email or web address] Procedure Note Charbel Dominique MD - 11/01/2024 [...] @ Nov 01 2024 2:59PM (Electronically Signed) [email or web address] us Deyanira Benítez MD GENERAL IMAGING Fin al Result * SEDIMENTATION RATE (11/01/2024 2:36 PM FACILITY MANAGER HISTOLOGY) SED RATE BY MODIFIED ISABELREN 2 < OR = 15 mm/h [facility] Blood BLOOD SPECIMEN / Unknown 11/01/2024 2:36 PM FACILITY MANAGER HISTOLOGY 11/01/2024 2:36 PM FACILITY MANAGER HISTOLOGY us Deyanira Benítez MD HEMATOLOGY Fin al Result Performing Organization Address City/[facility] Co de Phone Number [facility] [address] [place] [address], [facility] [address] [place] [address] * HLA B 27 DISEASE ASSOCIATION (11/01/2024 2:36 PM FACILITY MANAGER HISTOLOGY) Pathologist [facility] HLA B27 Negative Negative t3n [employer]/ [employer] Comment: HLA B27 RESULTS REVIEWED BY see note t3n [employer]/ [facility] [place] Comment: Lilibeth Clemente, Ph.D., [facility] Data Examination Clerk, Molecular Oncology The B27 allele group of [...] BLOOD SPECIMEN / Unknown 11/01/2024 2:36 PM FACILITY MANAGER HISTOLOGY 11/01/2024 2:36 PM FACILITY MANAGER HISTOLOGY Deyanira Benítez MD SEND OUTS Fin al Result [facility]/[employer] [address] [place], [place] , [facility] Pharmaceuticals[facility] [address] [place], [place] * CYCLIC CITRULLINE PEPTIDE (11/01/2024 2:36 PM FACILITY MANAGER HISTOLOGY) Pathologist [facility] CYCLIC CITRULLINATED PEPTIDE (CCP) AB (IGG) <16 UNITS [facility] Comment: Reference Range Negative: <20 Weak Positive: 20-39 Moderate Positive: 40-59 Strong Positive: >59 Blood BLOOD SPECIMEN / Unknown 11/01/2024 2:36 PM FACILITY MANAGER HISTOLOGY 11/01/2024 2:36 PM FACILITY MANAGER HISTOLOGY Deyanira Benítez MD SEND OUTS Fin al Result Performing Organization Address [facility]/ZIP Co de Phone Number [facility] [address] [place] [address], [place] [phone] [facility] [address] [place] [address] * TSH (11/01/2024 2:36 PM FACILITY MANAGER HISTOLOGY) Pathologist [facility] TSH 1.99 0.40 - 4.50 mIU/L [facility] Blood BLOOD SPECIMEN / Unknown 11/01/2024 2:36 PM FACILITY MANAGER HISTOLOGY 11/01/2024 2:36 PM FACILITY MANAGER HISTOLOGY Deyanira Benítez MD CHEMISTRY Fin al Result Performing Organization Address [facility] Co de Phone Number [facility] [address] [place] [address], [place] [phone] [facility] [address] [place] [address] * HBSAG (HBS) (11/01/2024 2:36 PM FACILITY MANAGER HISTOLOGY) Pathologist [facility] HEPATITIS B SURFACE ANTIGEN NON-REACTI VE NON-REACTI VE [facility] Comment: For additional information, please refer to [email or web address] (This link is being provided for informational/ educational purposes only.) Blood BLOOD SPECIMEN / Unknown 11/01/2024 2:36 PM FACILITY MANAGER HISTOLOGY 11/01/2024 2:36 PM FACILITY MANAGER HISTOLOGY Deyanira Benítez MD SEND OUTS Fin al Result [employer] [facility] [address] [place] [address], [place] [phone] [facility] [address] [facility] [address] * ANTI HCV (11/01/2024 2:36 PM FACILITY MANAGER HISTOLOGY) HEPATITIS C ANTIBODY NON-REACTI VE NON-REACT JOVANNA [facility] Comment: HCV antibody was non-reactive. There is no laboratory evidence of HCV infection. In most cases, no further action is required. However, if recent HCV exposure is suspected, a test for HCV RNA (test code 21313) is suggested. For additional information please refer to http://education.Dr. Jerry's Smooth Move/faq/TXP84a4 (This link is being provided for informational/ educational purposes only.) Blood BLOOD SPECIMEN / Unknown 11/01/2024 2:36 PM FACILITY MANAGER HISTOLOGY 11/01/2024 2:36 PM FACILITY MANAGER HISTOLOGY Deyanira Benítez MD SEND OUTS Fin al Result Performing Organization Address [facility] de Phone Number The Rowing Team [facility] [address] [place] [address], [place] [phone] [facility] [address] [place] [address] * RA QUANTITATIVE (11/01/2024 2:36 PM FACILITY MANAGER HISTOLOGY) Pathologist [facility] RHEUMATOID FACTOR <10 <14 IU/mL t3n [facility] Blood BLOOD SPECIMEN / Unknown 11/01/2024 2:36 PM FACILITY MANAGER HISTOLOGY 11/01/2024 2:36 PM FACILITY MANAGER HISTOLOGY Deyanira Benítez MD SEND OUTS Fin al Result Performing Organization Address [facility]/ZIP Co de Phone Number The Rowing Team [facility] [address] [place] [address], [place] [phone] [facility] [address] [place] [address] * C3 COMPLEMENT (11/01/2024 2:36 PM FACILITY MANAGER HISTOLOGY) COMPLEMENT COMPONENT C3C 146 82 - 185 mg/dL [facility] Blood BLOOD SPECIMEN / Unknown 11/01/2024 2:36 PM FACILITY MANAGER HISTOLOGY 11/01/2024 2:36 PM FACILITY MANAGER HISTOLOGY Deyanira Benítez MD CHEMISTRY Fin al Result Performing Organization Address City/[facility]/ZIP Co de Phone Number [employer] [facility] [address] [place] [address], [place] [phone] [facility] [address] [place] [address] * C4 COMPLEMENT (11/01/2024 2:36 PM FACILITY MANAGER HISTOLOGY) COMPLEMENT COMPONENT C4C 20 15 - 53 mg/dL [facility] Blood BLOOD SPECIMEN / Unknown 11/01/2024 2:36 PM FACILITY MANAGER HISTOLOGY 11/01/2024 2:36 PM FACILITY MANAGER HISTOLOGY Deyanira Benítez MD CHEMISTRY Fin al Result Performing Organization Address City/[facility]/ZIP Co de Phone Number [employer] [facility] [address] [place] [address], [place] [phone] [facility] [address] [place] [address] * ANTI HBC (11/01/2024 2:36 PM FACILITY MANAGER HISTOLOGY) HEPATITIS B CORE AB TOTAL NON-REACTI VE NON-REACTI VE [facility] Comment: For additional information, please refer to http://education.Dr. Jerry's Smooth Move/faq/LZH590 (This link is being provided for informational/ educational purposes only.) Blood BLOOD SPECIMEN / Unknown 11/01/2024 2:36 PM FACILITY MANAGER HISTOLOGY 11/01/2024 2:36 PM FACILITY MANAGER HISTOLOGY Deyanira Benítez MD SEND OUTS Fin al Result The Rowing Team [facility] [address] [facility] [place] [address], [place] [phone] [facility] [address] [facility] [address] * DNA DOUBLE-STRANDED (DSDNA) ANTIBODIES BY CRITHIDIA LUCILIAE IFA (11/01/2024 2:36 PM FACILITY MANAGER HISTOLOGY) DNA (DS) ANTIBODY <1 IU/mL [facility] Comment: IU/mL Interpretation < or = 4 Negative 5-9 Indeterminate > or = 10 Positive Blood BLOOD SPECIMEN / Unknown 11/01/2024 2:36 PM FACILITY MANAGER HISTOLOGY 11/01/2024 2:36 PM FACILITY MANAGER HISTOLOGY Deyanira Benítez MD SEND OUTS Fin al Result Performing Organization Address [facility]/ZIP Co de Phone Number The Rowing Team [facility] [address] [place] [address], [place] [phone] [facility] [address] [facility] [address] * C-REACTIVE PROTEIN (11/01/2024 2:36 PM FACILITY MANAGER HISTOLOGY) C-REACTIVE PROTEIN <3.0 <8.0 mg/L t3n [facility] Blood BLOOD SPECIMEN / Unknown 11/01/2024 2:36 PM FACILITY MANAGER HISTOLOGY 11/01/2024 2:36 PM FACILITY MANAGER HISTOLOGY Deyanira Benítez MD CHEMISTRY Fin al Result Performing Organization Address City/[facility]/ZIP Co de Phone Number The Rowing Team [facility] [address] [facility] [place] [address], [place] [phone] [facility] [address] [place] [address] * URIC ACID (11/01/2024 2:36 PM FACILITY MANAGER HISTOLOGY) URIC ACID 5.7 4.0 - 8.0 mg/dL [facility] Comment: Therapeutic target for gout patients: <6.0 mg/dL Blood BLOOD SPECIMEN / Unknown 11/01/2024 2:36 PM FACILITY MANAGER HISTOLOGY 11/01/2024 2:36 PM FACILITY MANAGER HISTOLOGY Deyanira Benítez MD CHEMISTRY Fin al Result [facility] [address] [place] [address], [place] [phone] [facility] [address] [place] [address] * PROTEIN/CREAT RATIO,URINE (11/01/2024 2:33 PM FACILITY MANAGER HISTOLOGY) Pathologist [facility] PROTEIN QUANT,RAND URINE 8 1 - 14 mg/dL 11/01/2024 10:58 PM FACILITY MANAGER HISTOLOGY [facility] CREAT,RANDOM URINE 141.0 39.0 - 259.0 mg/dL 11/01/2024 10:58 PM FACILITY MANAGER HISTOLOGY [facility] PROT/CREAT RATIO,UR 0.1 <0.2 11/01/2024 10:58 PM FACILITY MANAGER HISTOLOGY [facility] Urine URINE SPECIMEN / Unknown Non-Blood / Unknown 11/01/2024 2:33 PM FACILITY MANAGER HISTOLOGY 11/01/2024 2:33 PM FACILITY MANAGER HISTOLOGY Deyanira Benítez MD URINE Fin al Result [facility] [address] [place] [address], [place] * MR SPINE LUMBAR WO (10/26/2024 3:42 PM FACILITY MANAGER HISTOLOGY) Anatomical Region Laterality Modality Spine, LUMBAR SPINE Magnetic Res onance 10/26/2024 4:01 PM FACILITY MANAGER HISTOLOGY Narrative 10/26/2024 4:01 PM FACILITY MANAGER HISTOLOGY For Patients: As a result of the [...] VIEWS PA AND LATERAL (10/25/2024 5:04 PM FACILITY MANAGER HISTOLOGY) Anatomical Region Laterality Modality CHEST, THORAX, Lung, HEART Compu antoni Radiography 10/25/2024 5:33 PM FACILITY MANAGER HISTOLOGY Impressions 10/25/2024 5:33 PM FACILITY MANAGER HISTOLOGY No focal consolidation. Dictated by Sopo Luisa,MD @ 10/25/2024 5:33:41 PM (Electronically Signed) Narrative 10/25/2024 5:33 PM FACILITY MANAGER HISTOLOGY For Patients: As a result of the [...] 10/25/2024 5:33:41 PM (Electronically Signed) Hilda Rivera AGRONOMY SUPERVISOR GENERAL IMAGING Final Result * LIPID PANEL W REFLEX MEASURED LDL (08/16/2024 3:16 PM FACILITY MANAGER HISTOLOGY) CHOLESTEROL, TOTAL 125 <200 mg/dL [facility] [...] of LDL-C. Mike SS et al. KAR. 2013;310(52): 1467-0509 (http://education.[employer]/faq/JNY969) CHOL/HDLC RATIO 2.7 <5.0 (calc) [facility] NON HDL CHOLESTEROL 79 <130 mg/dL (calc) [facility] Comment: For patients with diabetes plus 1 major ASCVD risk factor, treating to a non-HDL-C goal of <100 mg/dL (LDL-C of <70 mg/dL) is considered a therapeutic option. Blood BLOOD SPECIMEN / Unknown 08/16/2024 3:16 PM FACILITY MANAGER HISTOLOGY 08/16/2024 3:16 PM FACILITY MANAGER HISTOLOGY Jairo Vasquez MD CHEMISTRY Final Res ult The Rowing Team [facility] [address] [place] [address], t3n [facility] [address] [place] [address] * ANTI HIV 1/2 (03/04/2014 8:54 AM CDT) Pathologist [facility] HIV-1/HIV-2 ANTIBODY Non-Reacti ve Non-Reacti ve 03/04/2014 4:40 PM CDT [facility] Blood specimen (specimen) BLOOD SPECIMEN / Unknown Venipuncture / Unknown 03/04/2014 8:54 AM CDT 03/04/2014 8:54 AM CDT Narrative [facility] - 03/04/2014 4:40 PM CDT HIV-1 p24 and HIV-1/HIV-2 Ab not detected us Jairo Vasquez MD SEND OUTS Final Res ult [facility] [address] [place] [address], from Last 3 Months or Most Recently Relevant to Health Maintenance Additional Health Concerns Infection Onset Date Last Indicated MRSA Clearance Comment:Infection Control Note: Hx of MRSA, surveillance criteria met, no need for further testing or isolation precautions. Do not delete or deactivate the FYI. 07/12/201803/2018 Insurance BLUE CROSS OF NON-SC-ITS WC TRAVELERS Advance Directives * Full Code (Latest Code Status on File) Date Activated Date Inactivated Comments 11/21/2024 6:47 AM 11/21/2024 10:57 AM Question Answer Comments Code Status Discussion: Discussed Care Teams Patient Case Coordinator Relationship Specialty Start Date End Date Jairo Vasquez MD [address] [facility] [address] PCP - General Family Practice 12/13/22 Kayode Ivey MD Gastroenterology Gastroenterology 02/26/16
--- OUTSIDE RECORDS SUMMARY | 2025-01-15 17:25 | XMS_ITS | Encounter Summary ---
Author Organization [place] Address [address] [place] [address]. [place] [address] Care Team Providers Care Field Service Technician Poultry Name Role Phone Jairo Vasquez MD Primary Care Provider Kylee Dailey MD Unavailable + Kayode Ivey MD Unavailable [phone] Nicolasa Perez APRN FLANGING ROLL OPERATOR Unavaila ble Srinivas Stern-C Unavailable Srinivas Stern-C Unavailable Bandar Casas [facility] Unavailable Bandar Casas [facility] Unavailable [phone] Ayana Zhang-C Unavailable [phone] PitSrinivas mcintosh-C Unavailable Encounter Details Date Type Department Care Team (Late st Contact Info) Description 07/11/2023 [facility] Medical Advice 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 [address] [place] [address] Alexis Torres MD [address] [place], [place] 8[address] Srinivas Stern PA-C [address] [place] [address] [phone] 06/05/2025 3:30 PM CDT Virtual Visit [facility] GI [address] [place] [address] Kayode Ivey MD [address] [place] [address] Bandar Casas RPH 420 [facility] [address]12 [place] [address] documented as of this encounter Visit Diagnoses Not on filedocumented in this encounter Additional Health Concerns Infection Onset Date Last Indicated Resolved Time MRSA-Contact Isolation Comment: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, chest, and elbow 02/17/2016 02/17/2016 Rule Out C-difficile 10/04/2023 10/05/2023 024 7:28 PM DOCUMENTATION LEAD C-difficile 10/05/2023 10/05/2023 11/04/2023 11:3 9 PM DOCUMENTATION LEAD Rule Out C-difficile 09/03/2024 09/04/2024 025 12:45 PM DOCUMENTATION LEAD Assessment Noted Time PHQ-9 Depression Total Score: 9 03/02/20 16 7:16 AM CDT documented as of this encounter Care Teams Field Service Technician Poultry Relationship Specialty Start Date End Date Jairo Vasquez MD PCP - General Family Medicine - Sports Medicine 12/29/15 Kylee Dailey MD [facility] [place], [place] [address] Internal Medicine 04/01/17 Kayode Ivey MD 6 [place] [address] Gastroenterology 04/01/17 Nicolasa Perez APRN FLANGING ROLL OPERATOR [address] [facility] [id number] [place], [place] [address] Nurse Practitioner Nurse Practitioner 04/28/17 Srinivas Stern PA-C 9 [place], [place] [address] Physician Vet Assistant Physician Vet Assistant 10/02/18 Srinivas Stern PA-C [address] [place], [place] [phone] Assigned Gastroenterology Provider 07/17/22 Bandar Casas RPH [address] [place] [address] [phone] Pharmacist Pharmacist 08/18/23 Bandar Casas RPH [address] [phone] Assigned MTM Pharmacist 08/27/23 Ayana Zhang PA-C [address] [place] [address] Physician Vet Assistant Rheumatology 04/16/24 Srinivas Stern PA-C [address] [place], [place] 128[address] Home Infusion Following Provider Gastroenterology 07/11/24 10/05/24 documented as of this encounter
--- OUTSIDE RECORDS SUMMARY | 2025-01-15 17:25 | XMS_ITS | Encounter Summary ---
Author Organization [place] Address [address] [place] [address] Care Team Providers Care Hot Strip Finisher Name Role Phone Jairo Vasquez MD Primary Care Provider [phone] Kylee Dailey MD Unavailable + Kayode Ivey MD Unavailable [phone] Nicolasa Perez APRN FORENSIC SCIENTIST Unavaila ble Srinivas Stern PA-C Unavailable [phone] Srinivas Stern PA-C Unavailable [phone] Violet Ta [facility] Unavailable [phone] Sue Mckeon [facility] Unavailable [phone] Karen Trinh MD Unavailable [phone] Violet Ta [facility] Unavailable [phone] Violet Ta [facility] Unavailable [phone] Srinivas Stern PA-C Unavailable [phone] Bandar Casas [facility] Unavailable [phone] Bandar Casas [facility] Unavailable [phone] Ayana Zhang PA-C Unavailable [phone] Srinivas Stern PA-C Unavailable [phone] Encounter Details Date Type Department Care Team (Late st Contact Info) Description 01/19/2021 [facility] Medical Advice [facility] [address] [phone] Kayode Ivey MD [address] [place] [address] [phone] Social History Tobacco Use Types Packs/Day Years Used Date Smoking Tobacco: Never Smokeless Tobacco: Never Alcohol Use Standard Drinks/Week Comments Yes 13 (1 standard drink = 0.6 oz pu re alcohol) MONTHLY PHQ-2 Answer Date Recorded PHQ-2 Score 2 08/20/2019 Sex and Gender Information Value Date Recorded Sex Assigned at Not on file Legal Sex 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 SERVICE SUPERVISOR Gender Identity Not on file Sexual [...] [facility] [address] [facility] [address] [place] [phone] Kayode Ivey MD [address] [place] [address] [phone] 03/07/2025 3:00 PM CDT Ancillary Procedure [address] [place] [address] Srinivas Stern PA-C [address] [place] [address] [phone] 04/24/2025 2:40 PM CDT Virtual Visit [facility] [address] [phone] Alexis Torres MD 420 [place], [place] 85[address] Srinivas Stern PA-C 9[address] [place], [place] [phone] 06/05/2025 3:30 PM CDT Virtual Visit [facility] 909 [facility] 2nd [place] [phone] Kayode Ivey MD [address] [place] [address] Bandar Casas [facility] 420 [facility] 812 [place], [place] 31[address] documented as of this encounter Visit Diagnoses Not on filedocumented in this encounter Additional Health Concerns Infection Onset Date Last Indicated Resolved Time MRSA-Contact Isolation Comment: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, chest, and elbow 02/17/2016 02/17/2016 Rule Out C-difficile 10/04/2023 10/05/2023 024 7:28 PM SERVICE SUPERVISOR C-difficile 10/05/2023 10/05/2023 11/04/2023 11:3 9 PM SERVICE SUPERVISOR Rule Out C-difficile 09/03/2024 09/04/2024 025 12:45 PM SERVICE SUPERVISOR Assessment Noted Time PHQ-9 Depression Total Score: 9 03/02/20 16 7:16 AM CDT documented as of this encounter Care Teams Hot Strip Finisher Relationship Specialty Start Date End Date Jairo Vasquez MD PCP - General Family Medicine - Sports Medicine 12/29/15 Kylee Dailey MD 6 [facility] [address] [place], [place] [address] Internal Medicine 04/01/17 Kayode Ivey MD [address] [place] [address]255 Gastroenterology 04/01/17 Nicolasa Perez APRN FORENSIC SCIENTIST [address] [place] [address] [id number] [place], [place] [phone] Nurse Practitioner Nurse Practitioner 04/28/17 Srinivas Stern PA-C [address] [place] [address] [phone] Physician Mental Health Program Manager Physician Mental Health Program Manager 10/02/18 Srinivas Stern PA-C [address] [place] [address] [phone] Assigned Heart and Vascular Provider 11/19/20 06/27/21 Violet Ta [facility] [address] [place] [address] Pharmacist Pharmacist 12/29/20 02/08/21 Sue Mckeon [facility] [address] [place] [address] [phone] Pharmacist Pharmacist Student Admissions Clerk 02/09/21 06/29/22 Karen Trinh MD [address] [place] [address] [phone] Assigned Infectious Disease Provider 02/08/21 07/30/22 Violet Ta [facility] [address] [place] [address] Assigned MTM Pharmacist 02/27/22 05/21/22 Violet Ta [facility] [address] [place] [address] Assigned MTM Pharmacist 06/02/22 07/09/22 Srinivas Stern PA-C [address] [place] [address] Assigned Gastroenterology Provider 07/17/22 Bandar Casas R[facility] [address] [address] Pharmacist Pharmacist 08/18/23 Bandar Casas [facility] [address] [address] Assigned MTM Pharmacist 08/27/23 Ayana Zhang PA-C [address] [place] [address] Physician Mental Health Program Manager Rheumatology 04/16/24 Srinivas Stern PA-C [address] [place], [place] 8[address] Home Infusion Following Provider Gastroenterology 07/11/24 10/05/24 documented as of this encounter
--- OUTSIDE RECORDS SUMMARY | 2025-01-15 17:25 | XMS_ITS | Encounter Summary ---
Author Organization [place] Address [address] [place] [address]. [place] [address] Care Team Providers Care Make Up Man Name Role Phone Jairo Vasquez MD Primary Care Provider [phone] Kylee Dailey MD Unavailable + Kayode Ivey MD Unavailable [phone] Nicolasa Perez APRN ASSISTANT PLANT CONTROL OPERATOR Unavaila ble Srinivas Stern-C Unavailable [phone] Srinivas Stern-C Unavailable [phone] Bandar Casas [facility] Unavailable [phone] Bandar Casas [facility] Unavailable [phone] Ayana hZang-C Unavailable PitSrinivas mcintosh-C Unavailable [phone] Encounter Details Date Type Department Care Team (Late st Contact Info) Description 06/01/2023 [facility]ology Clinic [address] 4th [place] [address] Anamika Ricoview Social History Tobacco [...] on file Legal Sex 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 RUG CUTTER HELPER Gender Identity Not on file Sexual Orientation [...] PM CDT Appointment [facility] Imaging [address] [facility] [address] [place] [address] Kayode Ivey MD [address] [place] [address] 03/07/2025 3:00 PM CDT Ancillary Procedure [facility] [address] [facility] [address] [place] [address] Srinivas Stern PA-C [address] [place] [address] 04/24/2025 2:40 PM CDT Virtual Visit [facility]astroenterology Clinic [address] [place] [address] Alexis Torres MD [address] [place], [place] [phone] Srinivas Stern PA-C [address] [place] [address] 06/05/2025 3:30 PM CDT Virtual Visit [facility] GI [address] [place] [phone] Kayode Ivey MD [address] [place] [address] Bandar Casas, [facility] 420 [facility] [address] [place] [address] documented as of this encounter Visit Diagnoses Not on filedocumented in this encounter Additional Health Concerns Infection Onset Date Last Indicated Resolved Time MRSA-Contact Isolation Comment: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, chest, and elbow 02/17/2016 02/17/2016 Rule Out C-difficile 10/04/2023 10/05/2023 024 7:28 PM RUG CUTTER HELPER C-difficile 10/05/2023 10/05/2023 11/04/2023 11:3 9 PM RUG CUTTER HELPER Rule Out C-difficile 09/03/2024 09/04/2024 025 12:45 PM RUG CUTTER HELPER Assessment Noted Time PHQ-9 Depression Total Score: 9 03/02/20 16 7:16 AM CDT documented as of this encounter Care Teams Make Up Man Relationship Specialty Start Date End Date Jairo Vasquez MD PCP - General Family Medicine - Sports Medicine 12/29/15 Kylee Dailey MD [address] [place] [address] [address] [place] [address] Internal Medicine 04/01/17 Kayode Ivey MD [address] [place] [address] Gastroenterology 04/01/17 Nicolasa Perez APRN ASSISTANT PLANT CONTROL OPERATOR [address] [place] [address] [id number] [place] [address] Nurse Practitioner Nurse Practitioner 04/28/17 Srinivas Stern PA-C [address] [place], [place] 111515 Physician Tire Buffer Physician Tire Buffer 10/02/18 Srinivas Stern PA-C [address] [place], [place] 7[address]65 Assigned Gastroenterology Provider 07/17/22 Bandar Casas R[facility] [address] 205252 [place] [address] Pharmacist Pharmacist 08/18/23 Bandar Casas R[facility] [address] [phone] Assigned MTM Pharmacist 08/27/23 Ayana Zhang PA-C 5[address] [place] [address] Physician Tire Buffer Rheumatology 04/16/24 Srinivas Stern PA-C [address] [place], [place] 7[address] Home Infusion Following Provider Gastroenterology 07/11/24 10/05/24 documented as of this encounter
--- OUTSIDE RECORDS SUMMARY | 2025-01-15 17:26 | XMS_ITS | Encounter Summary ---
Author Organization [place] Address [address] [place] [address] Care Team Providers Care Lacquer Dipping Machine Operator Name Role Phone Jairo Vasquez MD Primary Care Provider [phone] Kylee Dailey MD Unavailable + Kayode Ivey MD Unavailable +[phone] Nicolasa Perez APRN CHEMICAL EQUIPMENT SALES ENGINEER Unavaila ble Loyda Dickey RN Unavailable +[phone] Srinivas Stern PA-C Unavailable +[phone] Srinivas Stern PA-C Unavailable +[phone] Violet Ta [facility] Unavailable +[phone] Sue Mckeon [facility] Unavailable +[phone] Karen Trinh MD Unavailable +[phone] Violet Ta [facility] Unavailable +[phone] Violet Ta [facility] Unavailable +[phone] Srinivas Stern PA-C Unavailable +[phone] Bandar Casas [facility] Unavailable +[phone] Bandar Casas [facility] Unavailable Ayana Zhang PA-C Unavailable [phone] Srinivas Stern PA-C Unavailable Encounter Details Date Type Department Care Team (Late st Contact Info) Description 01/21/2019 MyC Medical Advice [facility] Gastroenterology and IBD Clinic [address] [place] [address] Kayode Ivey MD 6 [place] [address] Social History Tobacco Use Types Packs/Day Years Used Date Smoking Tobacco: Never Smokeless Tobacco: Never Alcohol Use Standard Drinks/Week Comments Yes 13 (1 standard drink = 0.6 oz pu re alcohol) MONTHLY Sex and Gender Information Value Date Recorded Sex Assigned at Not on file Legal Sex 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 [employer]IAN [employer] Gender Identity Not on file Sexual Orientation Not on file 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 Plan of Treatment Upcoming Encounters Date Type Department Care Team (Latest Contact Info) Description 02/13/2025 3:20 PM CDT Appointment [facility] [address] [facility] [address] [place] [phone] Kayode Ivey MD 6 [place] [address] 03/07/2025 3:00 PM CDT Ancillary Procedure [address] [place] [address] Srinivas Stern PA-C 9 [place], [place] 263475 04/24/2025 2:40 PM CDT [facility] [address] [address] Alexis Torres MD 420 [place] [address] Srinivas Stern PA-C 909 [place], [place] [phone] 06/05/2025 3:30 PM CDT Virtual Visit Viola MADERA [facility] 909 [facility] 2nd [place] [phone] Kayode Ivey MD 516 [place] [address] Bandar Casas, [facility] 420 [facility] 812 [place] [address] documented as of this encounter Visit Diagnoses Not on filedocumented in this encounter Additional Health Concerns Infection Onset Date Last Indicated Resolved Time MRSA-Contact Isolation Comment: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, chest, and elbow 02/17/2016 02/17/2016 Rule Out C-difficile 10/04/2023 10/05/2023 024 7:28 PM [employer]ER[employer] C-difficile 10/05/2023 10/05/2023 11/04/2023 11:3 9 PM [employer] Rule Out C-difficile 09/03/2024 09/04/2024 025 12:45 PM [employer] Assessment Noted Time PHQ-9 Depression Total Score: 9 03/02/20 16 7:16 AM CDT documented as of this encounter Care Teams Lacquer Dipping Machine Operator Relationship Specialty Start Date End Date Jairo Vasquez MD PCP - General Family Medicine - Sports Medicine 12/29/15 Kylee Dailey MD [address] [place] [address] 2A [place], [place] [phone] Internal Medicine 04/01/17 Kayode Ivey MD [address] [place] [address] Gastroenterology 04/01/17 Nicolasa Perez APRN CHEMICAL EQUIPMENT SALES ENGINEER [address] [place] [address] [id number] [place], [place] [id number] Nurse Practitioner Nurse Practitioner 04/28/17 Loyda Dickey RN Nurse Coordinator Neurology 05/26/17 02/26/19 Srinivas Stern PA-C [address] [place] [address] Physician Chief Projectionist Physician Chief Projectionist 10/02/18 Srinivas Stern PA-C [address] [place] [address] Assigned Heart and Vascular Provider 11/19/20 06/27/21 Violet Ta [facility] [address] [place] [address] Pharmacist Pharmacist 12/29/20 02/08/21 Sue Mckeon [facility] [address] [place] [address] [phone] Pharmacist Pharmacist Advertising Account Manager 02/09/21 06/29/22 Karen Trinh MD [address] [place] [address] [phone] Assigned Infectious Disease Provider 02/08/21 07/30/22 Violet Ta [facility] [address] [place] [address] 96 [place], [place] [phone] Assigned MTM Pharmacist 02/27/22 05/21/22 Violet Ta [facility] 480 [facility] [address] [place] [address] Assigned MTM Pharmacist 06/02/22 07/09/22 Srinivas Stern PA-C [address] [place] [address] Assigned Gastroenterology Provider 07/17/22 Bandar Casas RPH 420 [facility] 812 [place] [address] Pharmacist Pharmacist 08/18/23 Bandar Casas RP [address] [address] Assigned MTM Pharmacist 08/27/23 Ayana Zhang PA-C [address] [place] [address] Physician Chief Projectionist Rheumatology 04/16/24 Srinivas Stern PA-C 909 [place] [address] Home Infusion Following Provider Gastroenterology 07/11/24 10/05/24 documented as of this encounter
--- OUTSIDE RECORDS SUMMARY | 2025-01-15 17:26 | XMS_ITS | Encounter Summary ---
Author Organization [place] Address [address] [place] [address] Care Team Providers Care Iron Launder Operator Name Role Phone Jairo Vasquez MD Primary Care Provider [phone] Kylee Dailey MD Unavailable + Kayode Ivey MD Unavailable +[phone] Nicolasa Perez APRN PHARMACY TECH CUSTOMER SERVICE Unavaila ble Loyda Dickey RN Unavailable +[phone] Srinivas Stern PA-C Unavailable +[phone] Srinivas Stern PA-C Unavailable +[phone] Violet Ta [facility] Unavailable +[phone] Sue Mckeon [facility] Unavailable +[phone] Karen Trinh MD Unavailable +[phone] Violet Ta [facility] Unavailable +[phone] Violet Ta [facility] Unavailable +[phone] Srinivas Stern PA-C Unavailable +[phone] Bandar Casas [facility] Unavailable +[phone] Bandar Casas [facility] Unavailable Ayana Zhang PA-C Unavailable [phone] Srinivas Stern PA-C Unavailable Encounter Details Date Type Department Care Team (Late st Contact Info) Description 04/15/2016 MyC Medical Advice [facility] Gastroenterology and IBD Clinic [address] [place] [address] Kayode Ivey MD 6 [place] [address] Social History Tobacco Use Types Packs/Day Years Used Date Smoking Tobacco: Never Alcohol Use Standard Drinks/Week Comments No 0 (1 standard drink = 0.6 oz pur e alcohol) not currently Sex and Gender Information Value Date Recorded Sex Assigned at Not on file Legal Sex 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 Gender Identity Not on file Sexual Orientation Not on file 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 Plan of Treatment Upcoming Encounters Date Type Department Care Team (Latest Contact Info) Description 02/13/2025 3:20 PM CDT Appointment [facility] Imaging [address] [facility] [address] [place] [phone] Kayode Ivey MD 6 [place] [address] 03/07/2025 3:00 PM CDT Ancillary Procedure [address] [place] [address] Srinivas Stern PA-C [address] [place] [address] [phone] 04/24/2025 2:40 PM CDT Virtual Visit [facility] Gastroenterology Clinic [address] [address] Alexis Torres MD 420 [place] [address] Srinivas Stern PA-C 909 [place], [place] 669215 06/05/2025 3:30 PM CDT Virtual Visit Viola MADERA [facility] 909 [facility] SE 2nd [place] [phone] Kayode Ivey MD 516 [place] [address] Bandar Casas, [facility] 420 [facility] 812 [place], [place] 123825 documented as of this encounter Visit Diagnoses Not on filedocumented in this encounter Additional Health Concerns Infection Onset Date Last Indicated Resolved Time MRSA-Contact Isolation Comment: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, chest, and elbow 02/17/2016 02/17/2016 Rule Out C-difficile 10/04/2023 10/05/2023 024 7:28 PM KNIFE SETTER ASSEMBLER C-difficile 10/05/2023 10/05/2023 11/04/2023 11:3 9 PM KNIFE SETTER ASSEMBLER Rule Out C-difficile 09/03/2024 09/04/2024 025 12:45 PM KNIFE SETTER ASSEMBLER Assessment Noted Time PHQ-9 Depression Total Score: 9 03/02/20 16 7:16 AM CDT documented as of this encounter Care Teams Iron Launder Operator Relationship Specialty Start Date End Date Jairo Vasquez MD PCP - General Family Medicine - Sports Medicine 12/29/15 Kylee Dailey MD [address] [place] [address] 2A [place] [address] Internal Medicine 04/01/17 Kayode Ivey MD [address] [place] [address] Gastroenterology 04/01/17 Nicolasa Perez APRN PHARMACY TECH CUSTOMER SERVICE [address] [place] [address] [id number] [place], [place] 990855 Nurse Practitioner Nurse Practitioner 04/28/17 Loyda Dickey RN Nurse Coordinator Neurology 05/26/17 02/26/19 Srinivas Stern PA-C [address] [place] [address] [phone] Physician Insulation And Flooring Assembler Physician Insulation And Flooring Assembler 10/02/18 Srinivas Stern PA-C [address] [place] [address] [id number] Assigned Heart and Vascular Provider 11/19/20 06/27/21 Violet Ta [facility] [address] [place] [address] Pharmacist Pharmacist 12/29/20 02/08/21 Sue Mckeon [facility] [address] [place] [address] [phone] Pharmacist Pharmacist Field Marketing Director 02/09/21 06/29/22 Karen Trinh MD [address] [place] [address] [phone] Assigned Infectious Disease Provider 02/08/21 07/30/22 Violet Ta [facility] [address] [place] [address] [phone] Assigned MTM Pharmacist 02/27/22 05/21/22 Violet Ta [facility] [address] [place] [address] 96 [place] [address] Assigned MTM Pharmacist 06/02/22 07/09/22 Srinivas Stern PA-C 909 [place] [address] Assigned Gastroenterology Provider 07/17/22 Bandar Casas RPH [address] [address] Pharmacist Pharmacist 08/18/23 Bandar Casas RPH [address] [place] [address] Assigned MTM Pharmacist 08/27/23 Ayana Zhang PA-C [address] [place] [address] Physician Insulation And Flooring Assembler Rheumatology 04/16/24 Srinivas Stern PA-C [address] [place] [address] Home Infusion Following Provider Gastroenterology 07/11/24 10/05/24 documented as of this encounter
--- OUTSIDE RECORDS SUMMARY | 2025-01-15 17:26 | XMS_ITS | Encounter Summary ---
Author Organization [place] Address [address] [place] [address] 12[address] Care Team Providers Care Refrigerating Machine Operator Name Role Phone Jairo Vasquez MD Primary Care Provider [phone] Kylee Dailey MD Unavailable + Kayode Ivey MD Unavailable [phone] Nicolasa Perez APRN CREW BOSS Unavaila ble Loyda Dickey RN Unavailable [phone] Srinivas Stern PA-C Unavailable +[phone] Srinivas Stern PA-C Unavailable +[phone] Violet Ta [facility] Unavailable +[phone] Sue Mckeon [facility] Unavailable +[phone] Karen Trinh MD Unavailable +[phone] Violet Ta [facility] Unavailable +[phone] Violet Ta [facility] Unavailable +[phone] Srinivas Stern PA-C Unavailable +[phone] Bandar Casas [facility] Unavailable [phone] Bandar Casas [facility] Unavailable Ayana Zhang PA-C Unavailable [phone] Srinivas Stern PA-C Unavailable Encounter Details Date Type Department Care Team (Late st Contact Info) Description 07/08/2016 MyC Medical Advice [facility] Gastroenterology and IBD Clinic [address] [place] [phone] Kayode Ivey MD 6 [place] [address] Social History Tobacco Use Types Packs/Day Years Used Date Smoking Tobacco: Never Alcohol Use Standard Drinks/Week Comments No 0 (1 standard drink = 0.6 oz pur e alcohol) not currently Sex and Gender Information Value Date Recorded Sex Assigned at Not on file 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 Gender Identity Not on file Sexual Orientation Not on file 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 Plan of Treatment Upcoming Encounters Date Type Department Care Team (Latest Contact Info) Description 02/13/2025 3:20 PM CDT Appointment [facility] Imaging [address] [facility] [address] [place] [phone] Kayode Ivey MD 6 [place] [address] 03/07/2025 3:00 PM CDT Ancillary Procedure [address] [place] [address] Srinivas Stern PA-C [address] [place] [address] [phone] 04/24/2025 2:40 PM CDT Virtual Visit [facility] Gastroenterology Clinic [address] [address] Alexis Torres MD 420 [place] [address] Srinivas Stern PA-C 909 [place], [place] 019145 06/05/2025 3:30 PM CDT Virtual Visit Viola MADERA [facility] 909 [facility] SE 2nd [place] [phone] Kayode Ivey MD 516 [place] [address] Bandar Casas, [facility] 420 [facility] 812 [place], [place] 652505 documented as of this encounter Visit Diagnoses Not on filedocumented in this encounter Additional Health Concerns Infection Onset Date Last Indicated Resolved Time MRSA-Contact Isolation Comment: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, chest, and elbow 02/17/2016 02/17/2016 Rule Out C-difficile 10/04/2023 10/05/2023 024 7:28 PM CONTENT DIRECTOR C-difficile 10/05/2023 10/05/2023 11/04/2023 11:3 9 PM CONTENT DIRECTOR Rule Out C-difficile 09/03/2024 09/04/2024 025 12:45 PM CONTENT DIRECTOR Assessment Noted Time PHQ-9 Depression Total Score: 9 03/02/20 16 7:16 AM CDT documented as of this encounter Care Teams Refrigerating Machine Operator Relationship Specialty Start Date End Date Jairo Vasquez MD PCP - General Family Medicine - Sports Medicine 12/29/15 Kylee Dailey MD [address] [place] [address] 2A [place] [address] Internal Medicine 04/01/17 Kayode Ivey MD [address] [place] [address] Gastroenterology 04/01/17 Nicolasa Perez APRN CREW BOSS [address] [place] [address] [id number] [place], [place] 649655 Nurse Practitioner Nurse Practitioner 04/28/17 Loyda Dickey RN Nurse Coordinator Neurology 05/26/17 02/26/19 Srinivas Stern PA-C [address] [place] [address] [phone] Physician Railroad Design Consultant Physician Railroad Design Consultant 10/02/18 Srinivas Stern PA-C [address] [place] [address] [phone] Assigned Heart and Vascular Provider 11/19/20 06/27/21 Violet Ta [facility] [address] [place] [address] Pharmacist Pharmacist 12/29/20 02/08/21 Sue Mckeon [facility] [address] [place] [address] [phone] Pharmacist Pharmacist Gate Attendant 02/09/21 06/29/22 Karen Trinh MD [address] [place] [address] [phone] Assigned Infectious Disease Provider 02/08/21 07/30/22 Violet Ta [facility] [address] [place] [address] [phone] Assigned MTM Pharmacist 02/27/22 05/21/22 Violet Ta [facility] [address] [place] [address] [address] [place] [address] Assigned MTM Pharmacist 06/02/22 07/09/22 Srinivas Stern PA-C 909 [place] [address] Assigned Gastroenterology Provider 07/17/22 Bandar Casas RPH [address] [address] Pharmacist Pharmacist 08/18/23 Bandar Casas RPH [address] [place] [address] Assigned MTM Pharmacist 08/27/23 Ayana Zhang PA-C [address] [place] [address] Physician Railroad Design Consultant Rheumatology 04/16/24 Srinivas Stern PA-C [address] [place] [address] Home Infusion Following Provider Gastroenterology 07/11/24 10/05/24 documented as of this encounter
--- OUTSIDE RECORDS SUMMARY | 2025-01-15 17:26 | XMS_ITS | Encounter Summary ---
Author Organization [place] Address [address] [place] [address] Care Team Providers Care Discharge Door Operator Name Role Phone Jairo Vasquez MD Primary Care Provider [phone] Kylee Dailey MD Unavailable + Kayode Ivey MD Unavailable +[phone] Nicolasa Perez APRN EXHAUSTER Unavaila ble Loyda Dickey RN Unavailable +[phone] Srinivas Stern PA-C Unavailable +[phone] Srinivas Stern PA-C Unavailable +[phone] Violet Ta [facility] Unavailable +[phone] Sue Mckeon [facility] Unavailable +[phone] Karen Trinh MD Unavailable +[phone] Violet Ta [facility] Unavailable +[phone] Violet Ta [facility] Unavailable +[phone] Srinivas Stern PA-C Unavailable +[phone] Bandar Casas [facility] Unavailable +[phone] Bandar Casas [facility] Unavailable +[phone] Ayana Zhang PA-C Unavailable [phone] Srinivas Stern PA-C Unavailable [phone] Encounter Details Date Type Department Care Team (Late st Contact Info) Description 10/11/2018 MyC Medical Advice [facility] Gastroenterology and IBD Clinic [address] [place] [phone] Kayode Ivey MD 6 [place], [place] [phone] Social History Tobacco Use Types Packs/Day Years Used Date Smoking Tobacco: Never Smokeless Tobacco: Never Alcohol Use Standard Drinks/Week Comments Yes 13 (1 standard drink = 0.6 oz pu re alcohol) MONTHLY Sex and Gender Information Value Date Recorded Sex Assigned at Not on file 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 Gender Identity Not on file Sexual Orientation Not on file 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 Plan of Treatment Upcoming Encounters Date Type Department Care Team (Latest Contact Info) Description 02/13/2025 3:20 PM CDT Appointment [facility] Center Imaging [address] [facility] [address] [place] [phone] Kayode Ivey MD 6 [place] [address] 03/07/2025 3:00 PM CDT Ancillary Procedure [address] [place] [address] Srinivas Stern PA-C 9 [place], [place] 812815 04/24/2025 2:40 PM CDT Virtual Visit [facility] Gastroenterology Clinic [address] [address] Alexis Torres MD 420 [place] [address] Srinivas Stern PA-C 909 [place], [place] [phone] 06/05/2025 3:30 PM CDT Virtual Visit Viola MADERA [facility] 909 [facility] 2nd [place] [phone] Kayode Ivey MD 516 [place] [address] Bandar Casas, [facility] 420 [facility] 812 [place] [address] documented as of this encounter Visit Diagnoses Not on filedocumented in this encounter Additional Health Concerns Infection Onset Date Last Indicated Resolved Time MRSA-Contact Isolation Comment: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, chest, and elbow 02/17/2016 02/17/2016 Rule Out C-difficile 10/04/2023 10/05/2023 024 7:28 PM VOTING MACHINE REPAIRER C-difficile 10/05/2023 10/05/2023 11/04/2023 11:3 9 PM VOTING MACHINE REPAIRER Rule Out C-difficile 09/03/2024 09/04/2024 025 12:45 PM VOTING MACHINE REPAIRER Assessment Noted Time PHQ-9 Depression Total Score: 9 03/02/20 16 7:16 AM CDT documented as of this encounter Care Teams Discharge Door Operator Relationship Specialty Start Date End Date Jairo Vasquez MD PCP - General Family Medicine - Sports Medicine 12/29/15 Kylee Dailey MD [address] [place] [address] 2A [place], [place] [phone] Internal Medicine 04/01/17 Kayode Ivey MD [address] [place] [address] Gastroenterology 04/01/17 Nicolasa Perez APRN EXHAUSTER [address] [place] [address] [id number] [place], [place] 415855 Nurse Practitioner Nurse Practitioner 04/28/17 Loyda Dickey RN Nurse Coordinator Neurology 05/26/17 02/26/19 Srinivas Stern PA-C [address] [place] [address] Physician Varnish Thinner Physician Varnish Thinner 10/02/18 Srinivas Stern PA-C [address] [place] [address] Assigned Heart and Vascular Provider 11/19/20 06/27/21 Violet Ta [facility] [address] [place] [address] Pharmacist Pharmacist 12/29/20 02/08/21 Sue Mckeon [facility] [address] [place] [address] [phone] Pharmacist Pharmacist Junior Linux Administrator 02/09/21 06/29/22 Karen Trinh MD [address] [place] [address] [phone] Assigned Infectious Disease Provider 02/08/21 07/30/22 Violet Ta [facility] [address] [place] [address] 96 [place], [place] [phone] Assigned MTM Pharmacist 02/27/22 05/21/22 Violet Ta [facility] 480 [facility] 96 [place] [address] Assigned MTM Pharmacist 06/02/22 07/09/22 Srinivas Stern PA-C [address] [place] [address] Assigned Gastroenterology Provider 07/17/22 Bandar Casas RPH 420 [facility] 812 [place] [address] Pharmacist Pharmacist 08/18/23 Bandar Casas RP [address] [address] Assigned MTM Pharmacist 08/27/23 Ayana Zhang PA-C [address] [place] [address] Physician Varnish Thinner Rheumatology 04/16/24 Srinivas Stern PA-C 909 [place] [address] Home Infusion Following Provider Gastroenterology 07/11/24 10/05/24 documented as of this encounter
--- OUTSIDE RECORDS SUMMARY | 2025-01-15 17:26 | XMS_ITS | Encounter Summary ---
Author Organization [place] Address [address] [place] [address]. [place] [address] Care Team Providers Care Night Worker Name Role Phone Jairo Vasquez MD Primary Care Provider [phone] Kylee Dailey MD Unavailable + Kayode Ivey MD Unavailable +[phone] Nicolasa Perez APRN PAPER TESTING SUPERVISOR Unavaila ble Srinivas Stern-C Unavailable Srinivas Stern-C Unavailable Bandar Casas [facility] Unavailable [phone] Bandar Casas [facility] Unavailable Ayana Zhang-C Unavailable +[phone] Srinivas Stern-C Unavailable [phone] Encounter Details Date Type Department Care Team (Late st Contact Info) Description 05/04/2023 [facility] [address] 4th [place] [address] Trisha [place] Social History Tobacco Use Types Packs/Day Years Used Date Smoking Tobacco: Never Smokeless Tobacco: Never Alcohol Use Standard Drinks/Week Comments Yes 13 (1 standard drink = 0.6 oz pu re alcohol) MONTHLY PHQ-2 Answer Date Recorded PHQ-2 Score 0 01/18/2023 Sex and Gender Information Value Date Recorded Sex Assigned at Not on file 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 [address] [facility] [address] [place] [address] Kayode Ivey MD [address] [place] [address] 03/07/2025 3:00 PM CD[address] Ancillary Procedure [facility] [address] [facility] [address] [place] [address] Srinivas Stern PA-C [address] [place] [address] 04/24/2025 2:40 PM CDT Virtual Visit [facility] Gastroenterology Clinic [address]th [place] [address] Alexis Torres MD [address] [place], [place] [phone] Srinivas Stern PA-C [address] [place] [address] 06/05/2025 3:30 PM CDT Virtual Visit [facility] GI [address] 2nd [place] [phone] Kayode Ivey MD [address] [place] [address] Augusto Bandar, [facility] 420 [facility] [address]12 [place] [address] documented as of this encounter Visit Diagnoses Not on filedocumented in this encounter Additional Health Concerns Infection Onset Date Last Indicated Resolved Time MRSA-Contact Isolation Comment: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, chest, and elbow 02/17/2016 02/17/2016 Rule Out C-difficile 10/04/2023 10/05/2023 024 7:28 PM ASSEMBLY MECHANIC C-difficile 10/05/2023 10/05/2023 11/04/2023 11:3 9 PM ASSEMBLY MECHANIC Rule Out C-difficile 09/03/2024 09/04/2024 025 12:45 PM ASSEMBLY MECHANIC Assessment Noted Time PHQ-9 Depression Total Score: 9 03/02/20 16 7:16 AM CDT documented as of this encounter Care Teams Night Worker Relationship Specialty Start Date End Date Jairo Vasquez MD PCP - General Family Medicine - Sports Medicine 12/29/15 Kylee Dailey MD [address] [place], [place] [address]B [address] [place] [address] Internal Medicine 04/01/17 Kayode Ivey MD [address] [place] [address] Gastroenterology 04/01/17 Nicolasa Perez APRN PAPER TESTING SUPERVISOR [address] [place] [address] [address] Nurse Practitioner Nurse Practitioner 04/28/17 Srinivas Stern PA-C [address] [place] [address] Physician Field Representative Physician Field Representative 10/02/18 Srinivas Stern PA-C [address] [place] [address] Assigned Gastroenterology Provider 07/17/22 Banadr Casas RPH [address] [place] [address] [phone] Pharmacist Pharmacist 08/18/23 Bandar Casas RPH [address] [place] [address] 201925 Assigned MTM Pharmacist 08/27/23 Ayana Zhang PA-C [address] [place] [address] Physician Field Representative Rheumatology 04/16/24 Srinivas Stern PA-C [address] [place] [address] Home Infusion Following Provider Gastroenterology 07/11/24 10/05/24 documented as of this encounter
--- OUTSIDE RECORDS SUMMARY | 2025-01-15 17:26 | XMS_ITS | Encounter Summary ---
Author Organization [place] Address [address] [place] [address] Care Team Providers Care Political Researcher Name Role Phone Jairo Vasquez MD Primary Care Provider [phone] Kylee Dailey MD Unavailable + Kayode Ivey MD Unavailable [phone] Nicolasa Perez APRN PACS SPECIALIST Unavaila ble Loyda Dickey RN Unavailable [phone] Srinivas Stern PA-C Unavailable +[phone] Srinivas Stern PA-C Unavailable +[phone] Violet Ta [facility] Unavailable +[phone] Sue Mckeon [facility] Unavailable [phone] Karen Trinh MD Unavailable +[phone] Violet Ta [facility] Unavailable +[phone] Violet Ta [facility] Unavailable +[phone] Srinivas Stern PA-C Unavailable +[phone] Bandar Casas [facility] Unavailable [phone] Bandar Casas [facility] Unavailable Ayana Zhang PA-C Unavailable [phone] Srinivas Stern PA-C Unavailable [phone] Encounter Details Date Type Department Care Team (Late st Contact Info) Description 03/27/2018 MyC Medical Advice [facility] Gastroenterology and IBD Clinic [address] [place] [address] Blanca Menezes, RN Social History Tobacco Use Types Packs/Day Years Used Date Smoking Tobacco: Never Smokeless Tobacco: Never Alcohol Use Standard Drinks/Week Comments Yes 13 (1 standard drink = 0.6 oz pu re alcohol) MONTHLY Sex and Gender Information Value Date Recorded Sex Assigned at Not on file Legal Sex 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 EQUIPMENT OPERATOR Gender Identity Not on file Sexual Orientation Not on file 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 Plan of Treatment Upcoming Encounters Date Type Department Care Team (Latest Contact Info) Description 02/13/2025 3:20 PM CDT Appointment [facility] Imaging [address] [facility] [address] [place] [address] Kayode Ivey MD [address] [place] [address] 03/07/2025 3:00 PM CDT Ancillary Procedure [address] [place] [address] Srinivas Stern PA-C [address] [place] [address] 04/24/2025 2:40 PM CDT Virtual Visit [facility] [address] [address] Alexis Torres MD 420 [place], [place] [phone] Srinivas Stern PA-C [address] [place] [address] 06/05/2025 3:30 PM CDT Virtual Visit [facility] [address] [facility] [address] 2nd [place] [address] Kayode Ivey MD [address] [place], [place] 557[address] Bandar Casas, [facility] 420 [facility] 812 [place], [place] [address] documented as of this encounter Visit Diagnoses Not on filedocumented in this encounter Additional Health Concerns Infection Onset Date Last Indicated Resolved Time MRSA-Contact Isolation Comment: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, chest, and elbow 02/17/2016 02/17/2016 Rule Out C-difficile 10/04/2023 10/05/2023 024 7:28 PM LAUNDRY EQUIPMENT OPERATOR C-difficile 10/05/2023 10/05/2023 11/04/2023 11:3 9 PM LAUNDRY EQUIPMENT OPERATOR Rule Out C-difficile 09/03/2024 09/04/2024 025 12:45 PM LAUNDRY EQUIPMENT OPERATOR Assessment Noted Time PHQ-9 Depression Total Score: 9 03/02/20 16 7:16 AM CDT documented as of this encounter Care Teams Political Researcher Relationship Specialty Start Date End Date Jairo Vasquez MD PCP - General Family Medicine - Sports Medicine 12/29/15 Kylee Dailey MD [address] [place] [address] [address] [place], [place] [phone] Internal Medicine 04/01/17 Kayode Ivey MD [address] [place] [address] [phone] Gastroenterology 04/01/17 Nicolasa Perez APRN PACS SPECIALIST [address] [place] [address] [id number] [place] [address] Nurse Practitioner Nurse Practitioner 04/28/17 Loyda Dickey, RN Nurse Coordinator Neurology 05/26/17 02/26/19 Srinivas Stern PA-C [address] [place] [address] Physician Note Taker Physician Note Taker 10/02/18 Srinivas Stern PA-C [address] [place] [address] Assigned Heart and Vascular Provider 11/19/20 06/27/21 [facility] [address] [place] [address] Pharmacist Pharmacist 12/29/20 02/08/21 Sue Mckeon [facility] [address] [place] [address] Pharmacist Pharmacist Fisher Reef Net 02/09/21 06/29/22 Karen Trinh MD [address] [place] [address] Assigned Infectious Disease Provider 02/08/21 07/30/22 Violet Ta, [facility] [address] [place] [address] [address] [place] [address] Assigned MTM Pharmacist 02/27/22 05/21/22 Violet Ta [facility] 480 [facility] [address] [place] [address] Assigned MTM Pharmacist 06/02/22 07/09/22 Srinivas Stern PA-C 909 [place] [address] Assigned Gastroenterology Provider 07/17/22 Bandar Casas [facility] [address] [phone] Pharmacist Pharmacist 08/18/23 Bandar Casas [facility] [address] [place] [address] Assigned MTM Pharmacist 08/27/23 Ayana Zhang PA-C 5200 [place] [address] Physician Note Taker Rheumatology 04/16/24 Srinivas Stern PA-C 909 [place] [address] Home Infusion Following Provider Gastroenterology 07/11/24 10/05/24 documented as of this encounter
--- OUTSIDE RECORDS SUMMARY | 2025-01-15 17:26 | XMS_ITS | Encounter Summary ---
Author Organization [place] Address [address] [place] [address] Care Team Providers Care Heating Fixture Tender Name Role Phone Jairo Vasquez MD Primary Care Provider [phone] Kylee Dailey MD Unavailable + Kayode Ivey MD Unavailable [phone] Nicolasa Perez APRN TELEPHONE CLERKS SUPERVISOR Unavaila ble Loyda Dickey RN Unavailable [phone] Srinivas Stern PA-C Unavailable [phone] Srinivas Stern PA-C Unavailable +[phone] Violet Ta [facility] Unavailable +[phone] Sue Mckeon [facility] Unavailable [phone] Karen Trinh MD Unavailable +[phone] Violet Ta [facility] Unavailable +[phone] Violet Ta [facility] Unavailable +[phone] Srinivas Stern PA-C Unavailable +[phone] Bandar Casas [facility] Unavailable [phone] Bandar Casas [facility] Unavailable [phone] Ayana Zhang PA-C Unavailable [phone] Srinivas Stern PA-C Unavailable Encounter Details Date Type Department Care Team (Late st Contact Info) Description 03/28/2016 MyC Medical Advice [facility] Gastroenterology and IBD Clinic [address] [place] [address] Kayode Ivey MD [address] [place] [address] Social History Tobacco Use Types Packs/Day Years Used Date Smoking Tobacco: Never Alcohol Use Standard Drinks/Week Comments No 0 (1 standard drink = 0.6 oz pur e alcohol) not currently Sex and Gender Information Value Date Recorded Sex Assigned at Not on file Legal Sex 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 AIR BAG 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 Imaging [address] [facility] [address] [place] [phone] Kayode Ivey MD [address] [place] [address] 03/07/2025 3:00 PM CDT Ancillary Procedure [address] [place] [address] Srinivas Stern PA-C [address] [place] [id number] 04/24/2025 2:40 PM CDT Virtual Visit [facility] Gastroenterology Clinic [address] [address] Alexis Trores MD 420 [place] [address] Srinivas Stern PA-C 909 [place], [place] 12[address]15 06/05/2025 3:30 PM CDT Virtual Visit Viola MADERA MTM 909 [facility] [address] 2nd [place] [phone] Kayode Ivey MD [address] [place] [address] Bandar Casas, [facility] 420 [facility] 812 [place], [place] 9606[address] documented as of this encounter Visit Diagnoses Not on filedocumented in this encounter Additional Health Concerns Infection Onset Date Last Indicated Resolved Time MRSA-Contact Isolation Comment: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, chest, and elbow 02/17/2016 02/17/2016 Rule Out C-difficile 10/04/2023 10/05/2023 024 7:28 PM AIR BAG BUILDER C-difficile 10/05/2023 10/05/2023 11/04/2023 11:3 9 PM AIR BAG BUILDER Rule Out C-difficile 09/03/2024 09/04/2024 025 12:45 PM AIR BAG BUILDER Assessment Noted Time PHQ-9 Depression Total Score: 9 03/02/20 16 7:16 AM CDT documented as of this encounter Care Teams Heating Fixture Tender Relationship Specialty Start Date End Date Jairo Vasquez MD PCP - General Family Medicine - Sports Medicine 12/29/15 Kylee Dailey MD [address] [place] [address] 2[address] [place] [address] Internal Medicine 04/01/17 Kayode Ivey MD [address] [place] [address] Gastroenterology 04/01/17 Nicolasa Perez APRN TELEPHONE CLERKS SUPERVISOR [address] [place] [address] [id number] [place], [place] 180205 Nurse Practitioner Nurse Practitioner 04/28/17 Loyda Dickey RN Nurse Coordinator Neurology 05/26/17 02/26/19 Srinivas Stern PA-C [address] [place] [address] [phone] Physician Breaking Machine Operator Physician Breaking Machine Operator 10/02/18 Srinivas Stern PA-C [address] [place] [address] 633955 Assigned Heart and Vascular Provider 11/19/20 06/27/21 Violet Ta [facility] [address] [place] [address] Pharmacist Pharmacist 12/29/20 02/08/21 Sue Mckeon [facility] [address] [place] [address] [phone] Pharmacist Pharmacist Hiv Nurse 02/09/21 06/29/22 Karen Trinh MD [address] [place] [address] [phone] Assigned Infectious Disease Provider 02/08/21 07/30/22 Violet Ta [facility] [address] [place] [address] [phone] Assigned MTM Pharmacist 02/27/22 05/21/22 Violet Ta [facility] [address] [place] [address] [address] [place] [address] Assigned MTM Pharmacist 06/02/22 07/09/22 Srinivas Stern PA-C 909 [place] [address] Assigned Gastroenterology Provider 07/17/22 Bandar Casas RPH [address] [address] Pharmacist Pharmacist 08/18/23 Bandar Casas RPH [address] [place] [address] Assigned MTM Pharmacist 08/27/23 Ayana Zhang PA-C [address] [place] [address] Physician Breaking Machine Operator Rheumatology 04/16/24 Srinivas Stern PA-C [address] [place] [address] Home Infusion Following Provider Gastroenterology 07/11/24 10/05/24 documented as of this encounter
--- OUTSIDE RECORDS SUMMARY | 2025-01-15 17:26 | XMS_ITS | Encounter Summary ---
Author Organization [place] Address [address] [place] [address] Care Team Providers Care Supervisor Knitting Name Role Phone Jairo Vasquez MD Primary Care Provider [phone] Kylee Dailey MD Unavailable + Kayode Ivey MD Unavailable [phone] Nicolasa Perez APRN CLOTH EXAMINER Unavaila ble Srinivas Stern PA-C Unavailable +[phone] Srinivas Stern PA-C Unavailable +[phone] Violet Ta [facility] Unavailable +[phone] Sue Mckeon [facility] Unavailable [phone] Karen Trinh MD Unavailable [phone] Violet Ta [facility] Unavailable [phone] Violet Ta [facility] Unavailable +[phone] Srinivas Stern PA-C Unavailable +[phone] Bandar Casas [facility] Unavailable [phone] Bandar Casas [facility] Unavailable +[phone] Ayana Zhang PA-C Unavailable [phone] Srinivas Stern PA-C Unavailable [phone] Encounter Details Date Type Department Care Team (Late st Contact Info) Description 06/06/2019 MyC Medical Advice [facility] Gastroenterology and IBD Clinic [address] [place] [address] Blacna Menezes, RN Social History Tobacco Use Types Packs/Day Years Used Date Smoking Tobacco: Never Smokeless Tobacco: Never Alcohol Use Standard Drinks/Week Comments Yes 13 (1 standard drink = 0.6 oz pu re alcohol) MONTHLY Sex and Gender Information Value Date Recorded Sex Assigned at Not on file Legal Sex 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 PLASTERER [place]UCCO Gender Identity Not on file Sexual Orientation Not on file 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 Plan of Treatment Upcoming Encounters Date Type Department Care Team (Latest Contact Info) Description 02/13/2025 3:20 PM CDT Appointment [facility] Imaging [address] [facility] [address] [place] [phone] Kayode Ivey MD [address] [place], [place] 401[address] 03/07/2025 3:00 PM CDT Ancillary Procedure [address] [place] [address] Srinivas Stern PABuckyC [address] [place] [address] [phone] 04/24/2025 2:40 PM CDT Virtual Visit [facility] Gastroenterology Clinic [address] [address] Alexis Torres MD 420 [place], [place] [phone] Srinivas Stern PAErica 9 [place], [place] [address] 06/05/2025 3:30 PM CDT Virtual Visit [facility] MTM [address] [facility] [address] 2nd [place] [phone] Kayode Ivey MD [address] [place], [place] 5590[address] Bandar Casas, [facility] 420 [facility] 812 [place], [place] [phone] documented as of this encounter Visit Diagnoses Not on filedocumented in this encounter Additional Health Concerns Infection Onset Date Last Indicated Resolved Time MRSA-Contact Isolation Comment: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, chest, and elbow 02/17/2016 02/17/2016 Rule Out C-difficile 10/04/2023 10/05/2023 024 7:28 PM PLASTERER STUCCO C-difficile 10/05/2023 10/05/2023 11/04/2023 11:3 9 PM PLASTERER STUCCO Rule Out C-difficile 09/03/2024 09/04/2024 025 12:45 PM PLASTERER STUCCO Assessment Noted Time PHQ-9 Depression Total Score: 9 03/02/20 16 7:16 AM CDT documented as of this encounter Care Teams Supervisor Knitting Relationship Specialty Start Date End Date Jairo Vasquez MD PCP - General Family Medicine - Sports Medicine 12/29/15 Kylee Dailey MD [address] [place] [address] 2A [place] [address] Internal Medicine 04/01/17 Kayode Ivey MD [address] [place] [address] Gastroenterology 04/01/17 Nicolasa Perez APRN CLOTH EXAMINER [address] [place] [address] [id number] [place] [address] Nurse Practitioner Nurse Practitioner 04/28/17 Srinivas Stern PA-C [address] [place] [address] Physician Full Stack Python Developer Physician Full Stack Python Developer 10/02/18 Srinivas Stern PA-C [address] [place] [address] Assigned Heart and Vascular Provider 11/19/20 06/27/21 Violet Ta [facility] [address] [place] [address] Pharmacist Pharmacist 12/29/20 02/08/21 Sue Mckeon [facility] [address] [place] [address] 269[address] Pharmacist Pharmacist Marine Engineering Professor 02/09/21 06/29/22 Karen Trinh MD [address] [place] [address] 47897 Assigned Infectious Disease Provider 02/08/21 07/30/22 Violet Ta [facility] [address] [place] [address] Assigned MTM Pharmacist 02/27/22 05/21/22 Violet Ta, [facility] [address] [place] [address] Assigned MTM Pharmacist 06/02/22 07/09/22 Srinivas Stern PA-C 909 [place] [address] Assigned Gastroenterology Provider 07/17/22 Bandar Casas RPH [address] [place] [address] [phone] Pharmacist Pharmacist 08/18/23 Bandar Casas [facility] [address] [phone] Assigned MTM Pharmacist 08/27/23 Ayana Zhang PA-C 5200 [place] [address] Physician Full Stack Python Developer Rheumatology 04/16/24 Srinivas Stern PA-C 909 [place], [place] 7396[address] Home Infusion Following Provider Gastroenterology 07/11/24 10/05/24 documented as of this encounter
--- OUTSIDE RECORDS SUMMARY | 2025-01-15 17:26 | XMS_ITS | Encounter Summary ---
Author Organization [place] Address [address] [place] [address] Care Team Providers Care Handle Bar Assembler Name Role Phone Jairo Vasquez MD Primary Care Provider [phone] Kylee Dailey MD Unavailable + Kayode Ivey MD Unavailable [phone] Nicolasa Perez APRN AUTOMOTIVE SERVICE TECHNICIAN Unavaila ble Loyda Dickey RN Unavailable [phone] Srinivas Stern PA-C Unavailable +[phone] Srinivas Stern PA-C Unavailable +[phone] Violet Ta [facility] Unavailable +[phone] Sue Mckeon [facility] Unavailable [phone] Karen Trinh MD Unavailable +[phone] Violet Ta [facility] Unavailable +[phone] Violet Ta [facility] Unavailable +[phone] Srinivas Stern PA-C Unavailable +[phone] Bandar Casas [facility] Unavailable [phone] Bandar Casas [facility] Unavailable Ayana Zhang PA-C Unavailable [phone] Srinivas Stern PA-C Unavailable Encounter Details Date Type Department Care Team (Late st Contact Info) Description 03/28/2016 MyC Medical Advice [facility]ology [facility] [address] [place] [address] Kayode Ivey MD 6 [place] [address] Social History Tobacco Use Types Packs/Day Years Used Date Smoking Tobacco: Never Alcohol Use Standard Drinks/Week Comments No 0 (1 standard drink = 0.6 oz pur e alcohol) not currently Sex and Gender Information Value Date Recorded Sex Assigned at Not on file Legal Sex 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 CAP LINING MACHINE OPERATOR Gender Identity Not on file Sexual Orientation Not on file 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 Plan of Treatment Upcoming Encounters Date Type Department Care Team (Latest Contact Info) Description 02/13/2025 3:20 PM CDT Appointment [facility] Imaging [address] [facility] [address] [place] [phone] Kayode Ivey MD 6 [place] [address] 03/07/2025 3:00 PM CDT Ancillary Procedure [address] [place] [address] Srinivas Stern PA-C [address] [place] [address] [phone] 04/24/2025 2:40 PM CDT Virtual Visit [facility] [address] [address] Alexis Torres MD 420 [place] [address] Srinivas Stern PA-C 909 [place], [place] 735235 06/05/2025 3:30 PM CDT Virtual Visit Viola MADERA MTM 909 [facility] SE 2nd [place] [phone] Kayode Ivey MD 516 [place] [address] Bandar Casas, [facility] 420 [facility] 812 [place], [place] 263725 documented as of this encounter Visit Diagnoses Not on filedocumented in this encounter Additional Health Concerns Infection Onset Date Last Indicated Resolved Time MRSA-Contact Isolation Comment: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, chest, and elbow 02/17/2016 02/17/2016 Rule Out C-difficile 10/04/2023 10/05/2023 024 7:28 PM CAP LINING MACHINE OPERATOR C-difficile 10/05/2023 10/05/2023 11/04/2023 11:3 9 PM CAP LINING MACHINE OPERATOR Rule Out C-difficile 09/03/2024 09/04/2024 025 12:45 PM CAP LINING MACHINE OPERATOR Assessment Noted Time PHQ-9 Depression Total Score: 9 03/02/20 16 7:16 AM CDT documented as of this encounter Care Teams Handle Bar Assembler Relationship Specialty Start Date End Date Jairo Vasquez MD PCP - General Family Medicine - Sports Medicine 12/29/15 Kylee Dailey MD [address] [place] [address] [address] [place] [address] Internal Medicine 04/01/17 Kayode Ivey MD [address] [place] [address] Gastroenterology 04/01/17 Nicolasa Perez APRN AUTOMOTIVE SERVICE TECHNICIAN [address] [place] [address] [id number] [place], [place] 078565 Nurse Practitioner Nurse Practitioner 04/28/17 Loyda Dickey RN Nurse Coordinator Neurology 05/26/17 02/26/19 Srinivas Stern PA-C [address] [place] [address] [id number] Physician Uat Tester Physician Uat Tester 10/02/18 Srinivas Stern PA-C [address] [place] [address] [phone] Assigned Heart and Vascular Provider 11/19/20 06/27/21 Violet Ta [facility] [address] [place] [address] Pharmacist Pharmacist 12/29/20 02/08/21 Sue Mckeon [facility] [address] [place] [address] [phone] Pharmacist Pharmacist Blueprinter 02/09/21 06/29/22 Karen Trinh MD [address] [place] [address] [phone] Assigned Infectious Disease Provider 02/08/21 07/30/22 Violet Ta [facility] [address] [place] [address] [phone] Assigned MTM Pharmacist 02/27/22 05/21/22 Violet Ta [facility] [address] [place] [address] [address] [place] [address] Assigned MTM Pharmacist 06/02/22 07/09/22 Srinivas Stern PA-C 909 [place] [address] Assigned Gastroenterology Provider 07/17/22 Bandar Casas [facility] [address] [address] Pharmacist Pharmacist 08/18/23 Bandar Casas [facility] [address] [place] [address] Assigned MTM Pharmacist 08/27/23 Ayana Zhang PA-C [address] [place] [address] Physician Uat Tester Rheumatology 04/16/24 Srinivas Stern PA-C [address] [place] [address] Home Infusion Following Provider Gastroenterology 07/11/24 10/05/24 documented as of this encounter
--- OUTSIDE RECORDS SUMMARY | 2025-01-15 17:26 | XMS_ITS | Encounter Summary ---
Author Organization [place] Address [address] [place] [address] Care Team Providers Care Public Relations Officer Name Role Phone Jairo Vasquez MD Primary Care Provider [phone] Kylee Dailey MD Unavailable + Kayode Ivey MD Unavailable [phone] Nicolasa Perez APRN FISH CUTTING MACHINE OPERATOR Unavaila ble Loyda Dickey RN Unavailable +[phone] Srinivas Stern PA-C Unavailable [phone] Srinivas Stern PA-C Unavailable +[phone] Violet Ta [facility] Unavailable +[phone] Sue Mckeon [facility] Unavailable [phone] Karen Trinh MD Unavailable +[phone] Violet Ta [facility] Unavailable +[phone] Violet Ta [facility] Unavailable +[phone] Srinivas Stern PA-C Unavailable +[phone] Bandar Casas [facility] Unavailable [phone] Bandar Casas [facility] Unavailable Ayana Zhang PA-C Unavailable [phone] Srinivas Stern PA-C Unavailable [phone] Encounter Details Date Type Department Care Team (Late st Contact Info) Description 03/29/2018 MyC Medical Advice [facility] Gastroenterology and IBD Clinic [address] [place] [address] Blanca Menezes, RN Social History Tobacco Use Types Packs/Day Years Used Date Smoking Tobacco: Never Smokeless Tobacco: Never Alcohol Use Standard Drinks/Week Comments Yes 13 (1 standard drink = 0.6 oz pu re alcohol) MONTHLY Sex and Gender Information Value Date Recorded Sex Assigned at Not on file Legal Sex 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 RADIUS GRINDER Gender Identity Not on file Sexual Orientation Not on file 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 Plan of Treatment Upcoming Encounters Date Type Department Care Team (Latest Contact Info) Description 02/13/2025 3:20 PM CDT Appointment [facility] Imaging [address] [facility] [address] [place] [phone] Kayode Ivey MD 516 [place] [address] 03/07/2025 3:00 PM CDT Ancillary Procedure [address] [place] [address] Srinivas Stern PA-C [address] [place] [address] 04/24/2025 2:40 PM CDT Virtual Visit [facility] Gastroenterology Clinic [address] [address] Alexis Torres MD 420 [place], [place] [phone] Srinivas Stern PA-C [address] [place] [address] 06/05/2025 3:30 PM CDT Virtual Visit [facility] MTM 909 [facility] SE 2nd [place] [address] Kayode Ivey MD 516 [place], [place] 108575 Bandar Casas, [facility] 420 [facility] 812 [place], [place] 265585 documented as of this encounter Visit Diagnoses Not on filedocumented in this encounter Additional Health Concerns Infection Onset Date Last Indicated Resolved Time MRSA-Contact Isolation Comment: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, chest, and elbow 02/17/2016 02/17/2016 Rule Out C-difficile 10/04/2023 10/05/2023 024 7:28 PM RADIUS GRINDER C-difficile 10/05/2023 10/05/2023 11/04/2023 11:3 9 PM RADIUS GRINDER Rule Out C-difficile 09/03/2024 09/04/2024 025 12:45 PM RADIUS GRINDER Assessment Noted Time PHQ-9 Depression Total Score: 9 03/02/20 16 7:16 AM CDT documented as of this encounter Care Teams Public Relations Officer Relationship Specialty Start Date End Date Jairo Vasquez MD PCP - General Family Medicine - Sports Medicine 12/29/15 Kylee Dailey MD [address] [place] [address] [address] [place], [place] 566[address] Internal Medicine 04/01/17 Kayode Ivey MD [address] [place] [address] 640315 Gastroenterology 04/01/17 Nicolasa Perez APRN FISH CUTTING MACHINE OPERATOR [address] [place] [address] [id number] [place] [address] Nurse Practitioner Nurse Practitioner 04/28/17 Loyda Dickey, RN Nurse Coordinator Neurology 05/26/17 02/26/19 Srinivas Stern PA-C [address] [place] [address] Physician Vegetable Vendor Physician Vegetable Vendor 10/02/18 Srinivas Stern PA-C [address] [place] [address] Assigned Heart and Vascular Provider 11/19/20 06/27/21 [facility] [address] [place] [address] Pharmacist Pharmacist 12/29/20 02/08/21 Sue Mckeon [facility] [address] [place] [address] 20974 Pharmacist Pharmacist Director Check 02/09/21 06/29/22 Karen Trinh MD [address] [place] [address]283 Assigned Infectious Disease Provider 02/08/21 07/30/22 Violet Ta, [facility] [address] [place] [address] [address] [place] [address] Assigned MTM Pharmacist 02/27/22 05/21/22 Violet Ta [facility] [address] [facility] [address] [place] [address] Assigned MTM Pharmacist 06/02/22 07/09/22 Srinivas Stern PA-C 909 [place] [address] Assigned Gastroenterology Provider 07/17/22 Bandar Casas [facility] [address] 757485 Pharmacist Pharmacist 08/18/23 Bandar Casas [facility] [address] [place] [address] Assigned MTM Pharmacist 08/27/23 Ayana Zhang PA-C 5200 [place] [address] Physician Vegetable Vendor Rheumatology 04/16/24 Srinivas Stern PA-C 909 [place] [address] Home Infusion Following Provider Gastroenterology 07/11/24 10/05/24 documented as of this encounter
--- OUTSIDE RECORDS SUMMARY | 2025-01-15 17:26 | XMS_ITS | Encounter Summary ---
Author Organization [place] Address [address] [place] [address]. [place] [address] Care Team Providers Care Family Specialist Name Role Phone Jairo Vasquez MD Primary Care Provider Kylee Dailey MD Unavailable + Kayode Ivey MD Unavailable [phone] Nicolasa Perez APRN RESIDENT PROGRAM SPECIALIST Unavaila ble Srinivas Stern-C Unavailable [phone] Srinivas Stern-C Unavailable Bandar Casas [facility] Unavailable Bandar Casas [facility] Unavailable [phone] Ayana Zhang-C Unavailable Srinivas Stern-C Unavailable Encounter Details Date Type Department Care Team (Late st Contact Info) Description 09/26/2024 [facility] Medical Advice [facility] 9[address] [facility] [address] 2nd [place] [address] Bandar Casas, [facility] 420 [facility] 812 [place] [address] Social History Tobacco Use Types [...] file Legal Sex 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 IT SALES CONSULTANT Gender Identity Not on file Sexual Orientation Not on file 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 [address] [place] [address] Srinivas Stern PA-C [address] [place] [address] 04/24/2025 2:40 PM CDT Virtual Visit [facility] Gastroenterology Clinic [address]th [place] [address] Alexis Torres MD 420 [place], [place] [phone] Srinivas Stern PA-C [address] [place] [address] 06/05/2025 3:30 PM CDT Virtual Visit [facility] GI [address] 2nd [place] [phone] Kayode Ivey MD [address] [place] [address] Bandar Casas, [facility] 420 [facility] 812 [place] [address] documented as of this encounter Visit Diagnoses Not on filedocumented in this encounter Additional Health Concerns Infection Onset Date Last Indicated Resolved Time MRSA-Contact Isolation Comment: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, chest, and elbow 02/17/2016 02/17/2016 Assessment Noted Time PHQ-9 Depression Total Score: 9 03/02/20 16 7:16 AM CDT documented as of this encounter Care Teams Family Specialist Relationship Specialty Start Date End Date Jairo Vasquez MD PCP - General Family Medicine - Sports Medicine 12/29/15 Kylee Dailey MD [address] [place], [place] [address]B [address]A [place] [address] Internal Medicine 04/01/17 Kayode Ivey MD [address] [place] [address] 343165 Gastroenterology 04/01/17 Nicolasa Perez APRN RESIDENT PROGRAM SPECIALIST [address] [place] [address] [id number] [place], [place] 645025 Nurse Practitioner Nurse Practitioner 04/28/17 Srinivas Stern PA-C [address] [place] [address] 055695 Physician Header Machine Operator Physician Header Machine Operator 10/02/18 Srinivas Stern PA-C [address] [place] [address] [phone] Assigned Gastroenterology Provider 07/17/22 Bandar Casas [facility] [address] [address] Pharmacist Pharmacist 08/18/23 Bandar Casas [facility] [address] [phone] Assigned MTM Pharmacist 08/27/23 Ayana Zhang PA-C [facility] [place] [address] Physician Header Machine Operator Rheumatology 04/16/24 Srinivas Stern PA-C 909 [place], [place] [phone] Home Infusion Following Provider Gastroenterology 07/11/24 10/05/24 documented as of this encounter
--- OUTSIDE RECORDS SUMMARY | 2025-01-15 17:26 | XMS_ITS | Encounter Summary ---
Author Organization [facility] Address [address] [place] [address] Care Team Providers Care Ore Mixer Name Role Phone Jairo Vasquez MD Primary Care Provider [phone] Kylee Dailey MD Unavailable + Kayode Ivey MD Unavailable [phone] Nicolasa Perez APRN SPECIALTY SALES REPRESENTATIVE Unavaila ble Srinivas Stern PA-C Unavailable [phone] Srinivas Stern PA-C Unavailable [phone] Violet Ta [facility] Unavailable +[phone] Sue Mckeon [facility] Unavailable [phone] Karen Trinh MD Unavailable [phone] Violet Ta [facility] Unavailable [phone] Violet Ta [facility] Unavailable +[phone] Srinivas Stern PA-C Unavailable +[phone] Bandar Casas [facility] Unavailable [phone] Bandar Casas [facility] Unavailable [phone] Ayana Zhang PA-C Unavailable [phone] Srinivas Stern PA-C Unavailable [phone] Encounter Details Date Type Department Care Team (Late st Contact Info) Description 05/09/2019 MyC Medical Advice [facility] Gastroenterology and IBD Clinic [address] [place] [address] Kayode Ivey MD 6 [place], [place] 0915[address] Social History Tobacco Use Types Packs/Day Years Used Date Smoking Tobacco: Never Smokeless Tobacco: Never Alcohol Use Standard Drinks/Week Comments Yes 13 (1 standard drink = 0.6 oz pu re alcohol) MONTHLY Sex and Gender Information Value Date Recorded Sex Assigned at Not on file 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 Gender Identity Not on file Sexual Orientation Not on file 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 Plan of Treatment Upcoming Encounters Date Type Department Care Team (Latest Contact Info) Description 02/13/2025 3:20 PM CDT Appointment [facility] [address] [facility] [address] [place] [address] Kayode Ivey MD 6 [place], [place] [phone] 03/07/2025 3:00 PM CDT Ancillary Procedure [address] [place] [address] Srinivas Stern PA-C [address] [place] [address] 206105 04/24/2025 2:40 PM CDT Virtual Visit [facility] Gastroenterology Clinic [address] [address] Alexis Torres MD 420 [place], [place] 377065 Srinivas Stern PA-C [address] [place] [address] [phone] 06/05/2025 3:30 PM CDT Virtual Visit [facility] MTM 909 [facility] SE 2nd [place] [phone] Kayode Ivey MD 516 [facility] [place], [place] 102225 Bandar Casas, [facility] 420 [facility] 812 [place], [place] [address] documented as of this encounter Visit Diagnoses Not on filedocumented in this encounter Additional Health Concerns Infection Onset Date Last Indicated Resolved Time MRSA-Contact Isolation Comment: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, chest, and elbow 02/17/2016 02/17/2016 Rule Out C-difficile 10/04/2023 10/05/2023 024 7:28 PM AQUATICS GROUP FITNESS INSTRUCTOR C-difficile 10/05/2023 10/05/2023 11/04/2023 11:3 9 PM AQUATICS GROUP FITNESS INSTRUCTOR Rule Out C-difficile 09/03/2024 09/04/2024 025 12:45 PM AQUATICS GROUP FITNESS INSTRUCTOR Assessment Noted Time PHQ-9 Depression Total Score: 9 03/02/20 16 7:16 AM CDT documented as of this encounter Care Teams Ore Mixer Relationship Specialty Start Date End Date Jairo Vasquez MD PCP - General Family Medicine - Sports Medicine 12/29/15 Kylee Dailey MD [address] [place] [address] [address] [place], [place] 225[address] Internal Medicine 04/01/17 Kayode Ivey MD 6 [place], [place] [phone] Gastroenterology 04/01/17 Nicolasa Perez APRN SPECIALTY SALES REPRESENTATIVE [address] [place] [address] [id number] [place] [address] Nurse Practitioner Nurse Practitioner 04/28/17 Srinivas Stern PA-C [address] [place] [address] Physician Health And Wellness Coach Physician Health And Wellness Coach 10/02/18 Srinivas Stern PA-C [address] [place] [address] Assigned Heart and Vascular Provider 11/19/20 06/27/21 Violet Ta [facility] [address] [place] [address] Pharmacist Pharmacist 12/29/20 02/08/21 Sue Mckeon [facility] [address] [place] [address] Pharmacist Pharmacist Tandem Mill Sticker 02/09/21 06/29/22 Karen Trinh MD [address] [place] [address] Assigned Infectious Disease Provider 02/08/21 07/30/22 Violet Ta [facility] [address] [place] [address] Assigned MTM Pharmacist 02/27/22 05/21/22 Violet Ta [facility] [address] [place] [address] Assigned MTM Pharmacist 06/02/22 07/09/22 Srinivas Stern PA-C 909 [place] [address] Assigned Gastroenterology Provider 07/17/22 Bandar Casas [facility] [address] [place] [address] Pharmacist Pharmacist 08/18/23 Bandar Casas [facility] [address] [address] Assigned MTM Pharmacist 08/27/23 Ayana Zhang PA-C [address] [place] [address] Physician Health And Wellness Coach Rheumatology 04/16/24 Srinivas Stern PA-C [address] [place] [address] Home Infusion Following Provider Gastroenterology 07/11/24 10/05/24 documented as of this encounter
--- OUTSIDE RECORDS SUMMARY | 2025-01-15 17:26 | XMS_ITS | Encounter Summary ---
Author Organization [facility] Address [address] [place] [address]. [place] [address] Care Team Providers Care Copper Miner Name Role Phone Jairo Vasquez MD Primary Care Provider [phone] Kylee Dailey MD Unavailable + Kayode Ivey MD Unavailable [phone] Nicolasa Perez APRN INTER COM SERVICER Unavaila ble Srinivas Stern-C Unavailable [phone] Srinivas Stern-C Unavailable Bandar Casas [facility] Unavailable [phone] Bandar Casas [facility] Unavailable [phone] Ayana Zhang-C Unavailable Srinivas Stern-C Unavailable Encounter Details Date Type Department Care Team (Late st Contact Info) Description 10/04/2024 [facility] [place] 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 Imaging [address] [facility] [address] [place] [address] Kayode Ivey MD [address] [place] [address] 03/07/2025 3:00 PM CDT Ancillary Procedure [facility] [address] [facility] [address] [place] [address] Srinivas Stern PA-C [address] [place] [address] 04/24/2025 2:40 PM CDT Virtual Visit [facility] Gastroenterology Clinic [address]th [place] [address] Alexis Torres MD 420 [place], [place] [phone] Srinivas Stern PA-C [address] [place] [address] 06/05/2025 3:30 PM CDT Virtual Visit [facility] GI [address] 2nd [place] [phone] Kayode Ivey MD [address] [place] [address] Bandar Casas, [facility] 420 [facility] 812 [place] [address] documented as of this encounter Visit Diagnoses Not on filedocumented in this encounter Additional Health Concerns Infection Onset Date Last Indicated Resolved Time MRSA-Contact Isolation Comment: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, chest, and elbow 02/17/2016 02/17/2016 Assessment Noted Time PHQ-9 Depression Total Score: 9 03/02/20 16 7:16 AM CDT documented as of this encounter Care Teams Copper Miner Relationship Specialty Start Date End Date Jairo Vasquez MD PCP - General Family Medicine - Sports Medicine 12/29/15 Kylee Dailey MD [address] [place], [place] [address] 2A [place] [address] Internal Medicine 04/01/17 Kayode Ivey MD [address] [place] [address] [id number] Gastroenterology 04/01/17 Nicolasa Perez APRN INTER COM SERVICER [address] [place] [address] [id number] [place], [place] 513225 Nurse Practitioner Nurse Practitioner 04/28/17 Srinivas Stern PA-C [address] [place] [address] 161265 Physician Jewelry Designer Physician Jewelry Designer 10/02/18 Srinivas Stern PA-C [address] [place] [address] 626865 Assigned Gastroenterology Provider 07/17/22 Bandar Casas RPH [address] [address] Pharmacist Pharmacist 08/18/23 Bandar Casas RPH [address] [id number] Assigned MTM Pharmacist 08/27/23 Ayana Zhang PA-C [facility] [place] [address] Physician Jewelry Designer Rheumatology 04/16/24 Srinivas Stern PA-C 909 [place], [place] [phone] Home Infusion Following Provider Gastroenterology 07/11/24 10/05/24 documented as of this encounter
--- OUTSIDE RECORDS SUMMARY | 2025-01-15 17:26 | XMS_ITS | Encounter Summary ---
Author Organization [facility] [place] Address [address] [place] [address] Care Team Providers Care Metal Bonding Worker Name Role Phone Jairo Vasquez MD Primary Care Provider [phone] Kylee Dailey MD Unavailable + Kayode Ivey MD Unavailable [phone] Nicolasa Perez APRN SVP PROGRAMMATIC TV Unavaila ble Srinivas Stern PA-C Unavailable Srinivas Stern PA-C Unavailable Luisana Lang [facility] Unavailable [phone] Luisana Lang [facility] Unavailable Ayana Zhang PA-C Unavailable [phone] PitSrinivas mcintosh PA-C Unavailable Reason for Visit * Reason Comments Medication Therapy Management * (Routine) - Pending Review Specialty Diagnoses / Procedures Referred By Controberto carlos t Referred To Contact Referral ID Status Reason Start Date Expiration Date V isits Requested Visits Authorized [id number] Pending Review 09/26/2024 09/26/2025 1 1 Encounter Details Date Type Department Care Team ([facility] st Contact Info) Description 10/04/2024 11:30 AM COVER MACHINE OPERATOR Virtual Visit [facility] [address] 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 Please call ph: [phone], option #1 to schedule an appointment. Encourage [...] receive an email or text message from [employer] with a link to a survey related to your ???clinical pharmacist. To schedule another MTM appointment, please call the clinic directly or you may call the MTM scheduling line at [phone] or toll-free at . My Clinical Pharmacist's contact information: Please feel free to contact me with any questions or concerns you have. Luisana Lang PharmD, BCPS MTM Pharmacist [facility] Gastroenterology R MACHINE OPERATOR documented in this encounter Progress Notes * [...] in the GI clinic. Please call ph: [phone], option #1 to schedule an appointment. Encourage [...] summary of these recommendations was sent via [employer]. Luisana Lang, PharmD, BCPS [facility] Pharmacist [facility] Gastroenterology Telemedicine Visit Details The patient's medications can be safely assessed via a telemedicine encounter. Type of service: Telephone visit Originating Location (pt. Location): Home Distant Location (provider location): Off-site Start Time: 11:30 AM End Time: 11:50 AM Medication Therapy Recommendations No medication therapy recommendations to display R MACHINE OPERATOR R MACHINE OPERATOR documented in this encounter Nursing Notes * Carline Arriaga - 10/04/2024 11:30 AM CST Current patient location: [address] [place] [phone] Is the patient currently in the state of [place]? YES Visit mode: TELEPHONE If the visit is dropped, the patient can be reconnected by:TELEPHONE VISIT: Phone number: Telephone Information: Will anyone else be joining the visit? NO (If patient encounters technical issues they should call [phone] :[phone]) Are changes needed to the allergy or medication list? No Are refills needed on medications prescribed by this physician? NO Rooming Documentation: Questionnaire(s) not done per department protocol Reason for visit: RECHECK Carline Covington VVF R MACHINE OPERATOR documented in this encounter Miscellaneous Notes * Addendum Note - Luisana Lang RPH - 10/04/2024 11:30 AM CSTAddended by: LUISANA LANG on: 10/19/2024 04:21 PM Modules accepted: Orders R MACHINE OPERATOR documented in this encounter Plan of Treatment Upcoming Encounters Date Type Department Care Team (Latest Contact Info) Description 02/13/2025 3:20 PM CDT Appointment [facility] Imaging [address] [facility] [address] [place] [address] Kayode Ivey MD [address] [place] [address] 03/07/2025 3:00 PM CDT Ancillary Procedure [address] [place] [address] Srinivas Stern PA-C 9 [place], [place] 974075 04/24/2025 2:40 PM CDT Virtual Visit [facility] Gastroenterology Clinic [address]th [place] [phone] Alexis Torres MD 420 [place], [place] 846035 Srinivas Stern PA-C [address] [place] [address] 297[address] 06/05/2025 3:30 PM CDT Virtual Visit [facility] GI [address] [place] [phone] Kayode Ivey MD 516 [place], [place] 516985 Luisana Lang RPH 420 [facility] 812 [place], [place] 556135 documented as of this encounter Visit Diagnoses [...] documented as of this encounter Care Teams Metal Bonding Worker Relationship Specialty Start Date End Date Jairo Vasquez MD PCP - General Family Medicine - Sports Medicine 12/29/15 Kylee Dailey MD 516 [facility] 2A [place] [address] Internal Medicine 04/01/17 Kayode Ivey MD 6 [place] [address] Gastroenterology 04/01/17 Nicolasa Perez APRN SVP PROGRAMMATIC TV [address] [place] [address] [id number] [place] [address] Nurse Practitioner Nurse Practitioner 04/28/17 Srinivas Stern PA-C [address] [place] [address] [id number] Physician Fashion Supervisor Physician Fashion Supervisor 10/02/18 Srinivas Stern PA-C 9 [place], [place] 813305 Assigned Gastroenterology Provider 07/17/22 Luisana Lang RPH 420 [place] 608532 [place], [place] 601225 Pharmacist Pharmacist 08/18/23 Luisana Lang RPH [address] [address] Assigned MTM Pharmacist 08/27/23 Ayana Zhang PA-C 5200 [place] [address] Physician Fashion Supervisor Rheumatology 04/16/24 Srinivas Stern PA-C 909 [place] [address] Home Infusion Following Provider Gastroenterology 07/11/24 10/05/24 documented as of this encounter
--- OUTSIDE RECORDS SUMMARY | 2025-01-15 17:26 | XMS_ITS | Encounter Summary ---
Author Organization [facility] Address [address] [place] [address] Care Team Providers Care Youth Teacher Name Role Phone Jairo Vasquez MD Primary Care Provider [phone] Kylee Dailey MD Unavailable + Kayode Ivey MD Unavailable [phone] Nicolasa Perez APRN HUMAN RESOURCE PROFESSIONAL Unavaila ble Loyda Dickey RN Unavailable [phone] Srinivas Stern PA-C Unavailable [phone] Srinivas Stern PA-C Unavailable [phone] Violet Ta [facility] Unavailable [phone] Sue Mckeon [facility] Unavailable [phone] Karen Trinh MD Unavailable +[phone] Violet Ta [facility] Unavailable [phone] Violet Ta [facility] Unavailable [phone] Srinivas Stern PA-C Unavailable +[phone] Bandar Casas [facility] Unavailable [phone] Bandar Casas [facility] Unavailable Ayana Zhang PA-C Unavailable [phone] Srinivas Stern PA-C Unavailable [phone] Encounter Details Date Type Department Care Team (Late st Contact Info) Description 01/22/2019 [facility] Medical Advice [facility] Gastroenterology and IBD Clinic [address] [place] [address] Srinivas Stern PA-C [address] [place] [address] [phone] Social History Tobacco Use Types Packs/Day Years Used Date Smoking Tobacco: Never Smokeless Tobacco: Never Alcohol Use Standard Drinks/Week Comments Yes 13 (1 standard drink = 0.6 oz pu re alcohol) MONTHLY Sex and Gender Information Value Date Recorded Sex Assigned at Not on file 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 Gender Identity Not on file Sexual Orientation Not on file 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 Plan of Treatment Upcoming Encounters Date Type Department Care Team (Latest Contact Info) Description 02/13/2025 3:20 PM CDT Appointment [facility] Imaging [address] [facility] [address] [place] [address] Kayode Ivey MD 516 [place] [address] 03/07/2025 3:00 PM CDT Ancillary Procedure [address] [place] [address] Srinivas Stern PA-C [address] [place] [address] [phone] 04/24/2025 2:40 PM CDT Virtual Visit [facility]astroenterology Clinic [address] [address] Alexis Torres MD 420 [place] [address] Srinivas Stern PA-C 909 [place], [place] [phone] 06/05/2025 3:30 PM CDT Virtual Visit Viola [facility] 909 [facility] 2nd [place] [phone] Kayode Ivey MD 516 [place] [address] Bandar Casas, [facility] 420 [facility] 812 [place] [address] documented as of this encounter Visit Diagnoses Not on filedocumented in this encounter Additional Health Concerns Infection Onset Date Last Indicated Resolved Time MRSA-Contact Isolation Comment: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, chest, and elbow 02/17/2016 02/17/2016 Rule Out C-difficile 10/04/2023 10/05/2023 024 7:28 PM IT OPERATIONS SPECIALIST C-difficile 10/05/2023 10/05/2023 11/04/2023 11:3 9 PM IT OPERATIONS SPECIALIST Rule Out C-difficile 09/03/2024 09/04/2024 025 12:45 PM IT OPERATIONS SPECIALIST Assessment Noted Time PHQ-9 Depression Total Score: 9 03/02/20 16 7:16 AM CDT documented as of this encounter Care Teams Youth Teacher Relationship Specialty Start Date End Date Jairo Vasquez MD PCP - General Family Medicine - Sports Medicine 12/29/15 Kylee Dailey MD [address] [place] [address] 2A [place], [place] [phone] Internal Medicine 04/01/17 Kayode Ivey MD [address] [place] [address] Gastroenterology 04/01/17 Nicolasa Perez APRN HUMAN RESOURCE PROFESSIONAL [address] [place] [address] [id number] [place], [place] 402405 Nurse Practitioner Nurse Practitioner 04/28/17 Loyda Dickey RN Nurse Coordinator Neurology 05/26/17 02/26/19 Srinivas Stern PA-C [address] [place] [address] Physician French Pastry Cook Physician French Pastry Cook 10/02/18 Srinivas Stern PA-C [address] [place] [address] Assigned Heart and Vascular Provider 11/19/20 06/27/21 Violet Ta [facility] [address] [place] [address] Pharmacist Pharmacist 12/29/20 02/08/21 Sue Mckeon [facility] [address] [place] [address] [phone] Pharmacist Pharmacist Patrol Lady 02/09/21 06/29/22 Karen Trinh MD [address] [place] [address] [phone] Assigned Infectious Disease Provider 02/08/21 07/30/22 Violet Ta [facility] [address] [place] [address] 96 [place], [place] [phone] Assigned MTM Pharmacist 02/27/22 05/21/22 Violet Ta [facility] 480 [facility] [address] [place] [address] Assigned MTM Pharmacist 06/02/22 07/09/22 Srinivas Stern PA-C [address] [place] [address] Assigned Gastroenterology Provider 07/17/22 Bandar Casas RPH 420 [facility] 812 [place] [address] Pharmacist Pharmacist 08/18/23 Bandar Casas RP [address] [address] Assigned MTM Pharmacist 08/27/23 Ayana Zhang PA-C [address] [place] [address] Physician French Pastry Cook Rheumatology 04/16/24 Srinivas Stern PA-C 909 [place] [address] Home Infusion Following Provider Gastroenterology 07/11/24 10/05/24 documented as of this encounter
--- OUTSIDE RECORDS SUMMARY | 2025-01-15 17:26 | XMS_ITS | Encounter Summary ---
Author Organization [facility] Address [address] [place] [address] Care Team Providers Care Finish Carpenter Name Role Phone Jairo Vasquez MD Primary Care Provider [phone] Kylee Daiely MD Unavailable + Kayode Ivey MD Unavailable [phone] Nicolasa Perez APRN ANALYSIS CONSULTANT Unavaila ble Loyda Dickey RN Unavailable [phone] Srinivas Stern PA-C Unavailable [phone] Srinivas Stern PA-C Unavailable +[phone] Violet Ta [facility] Unavailable +[phone] Sue Mckeon [facility] Unavailable [phone] Karen Trinh MD Unavailable +[phone] Violet Ta [facility] Unavailable [phone] Violet Ta [facility] Unavailable [phone] Srinivas Stern PA-C Unavailable +[phone] Bandar Casas [facility] Unavailable [phone] Bandar Casas [facility] Unavailable Ayana Zhang PA-C Unavailable [phone] Srinivas Stern PA-C Unavailable [phone] Encounter Details Date Type Department Care Team (Late st Contact Info) Description 05/26/2016 MyC Medical Advice [facility] Gastroenterology and IBD Clinic [address] [place] [address] Kayode Ivey MD 6 [place] [address] Social History Tobacco Use Types Packs/Day Years Used Date Smoking Tobacco: Never Alcohol Use Standard Drinks/Week Comments No 0 (1 standard drink = 0.6 oz pur e alcohol) not currently Sex and Gender Information Value Date Recorded Sex Assigned at Not on file 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 Gender Identity Not on file Sexual Orientation Not on file 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 Plan of Treatment Upcoming Encounters Date Type Department Care Team (Latest Contact Info) Description 02/13/2025 3:20 PM CDT Appointment [facility] Imaging [address] [facility] [address] [place] [address] Kayode Ivey MD 6 [place] [address] 03/07/2025 3:00 PM CDT Ancillary Procedure [address] [place] [address] Srinivas Stern PA-C [address] [place] [phone] 04/24/2025 2:40 PM CDT Virtual Visit [facility] [address] [address] Alexis Torres MD 420 [place] [address] Srinivas Stern PA-C 909 [place], [place] 329615 06/05/2025 3:30 PM CDT Virtual Visit Viola [facility]ERA MTM 909 [facility] [address] 2nd [place] [phone] Kayode Ivey MD 516 [place] [address] Bandar Casas, [facility] 420 [facility] 812 [place], [place] 295315 documented as of this encounter Visit Diagnoses Not on filedocumented in this encounter Additional Health Concerns Infection Onset Date Last Indicated Resolved Time MRSA-Contact Isolation Comment: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, chest, and elbow 02/17/2016 02/17/2016 Rule Out C-difficile 10/04/2023 10/05/2023 024 7:28 PM SAND MIXER OPERATOR C-difficile 10/05/2023 10/05/2023 11/04/2023 11:3 9 PM SAND MIXER OPERATOR Rule Out C-difficile 09/03/2024 09/04/2024 025 12:45 PM SAND MIXER OPERATOR Assessment Noted Time PHQ-9 Depression Total Score: 9 03/02/20 16 7:16 AM CDT documented as of this encounter Care Teams Finish Carpenter Relationship Specialty Start Date End Date Jairo Vasquez MD PCP - General Family Medicine - Sports Medicine 12/29/15 Kylee Dailey MD [address] [place] [address] 2A [place] [address] Internal Medicine 04/01/17 Kayode Ivey MD [address] [place] [address] Gastroenterology 04/01/17 Nicolasa Perez APRN ANALYSIS CONSULTANT [address] [place] [address] [id number] [place], [place] 629185 Nurse Practitioner Nurse Practitioner 04/28/17 Loyda Dickey RN Nurse Coordinator Neurology 05/26/17 02/26/19 Srinivas Stern PA-C [address] [place] [address] [phone] Physician Interior Decorator Painting Physician Interior Decorator Painting 10/02/18 Srinivas Stern PA-C [address] [place] [address] 474145 Assigned Heart and Vascular Provider 11/19/20 06/27/21 Violet Ta [facility] [address] [place] [address] Pharmacist Pharmacist 12/29/20 02/08/21 Sue Mckeon [facility] [address] [place] [address] [phone] Pharmacist Pharmacist Customer Marketing Intern 02/09/21 06/29/22 Karen Trinh MD [address] [place] [address] [phone] Assigned Infectious Disease Provider 02/08/21 07/30/22 Violet Ta [facility] [address] [place] [address] [phone] Assigned MTM Pharmacist 02/27/22 05/21/22 Violet Ta [facility] [address] [place] [address] [address] [place] [address] Assigned MTM Pharmacist 06/02/22 07/09/22 Srinivas Stern PA-C 909 [place] [address] Assigned Gastroenterology Provider 07/17/22 Bandar Casas RPH [address] [address] Pharmacist Pharmacist 08/18/23 Bandar Casas RPH [address] [place] [address] Assigned MTM Pharmacist 08/27/23 Ayana Zhang PA-C [address] [place] [address] Physician Interior Decorator Painting Rheumatology 04/16/24 Srinivas Stern PA-C [address] [place] [address] Home Infusion Following Provider Gastroenterology 07/11/24 10/05/24 documented as of this encounter
--- OUTSIDE RECORDS SUMMARY | 2025-01-15 17:26 | XMS_ITS | Encounter Summary ---
Author Organization [facility] Address [address] [place] [address] Care Team Providers Care Route Sales Driver Name Role Phone Jairo Vasquez MD Primary Care Provider [phone] Kylee Dailey MD Unavailable + Kayode Ivey MD Unavailable +[phone] Nicolasa Perez APRN COMMERCIAL TITLE EXAMINER Unavaila ble Loyda Dickey RN Unavailable +[phone] Srinivas Stern PA-C Unavailable +[phone] Srinivas Stern PA-C Unavailable +[phone] Violet Ta [facility] Unavailable +[phone] Sue Mckeon [facility] Unavailable +[phone] Karen Trinh MD Unavailable +[phone] Violet Ta [facility] Unavailable +[phone] Violet Ta [facility] Unavailable +[phone] Srinivas Stern PA-C Unavailable +[phone] Bandar Casas [facility] Unavailable +[phone] Bandar Casas [facility] Unavailable +[phone] Ayana Zhang PA-C Unavailable [phone] Srinivas Stern PA-C Unavailable [phone] Encounter Details Date Type Department Care Team (Late st Contact Info) Description 06/28/2016 MyC Medical Advice [facility] Gastroenterology and IBD Clinic [address] [place] [address] Kayode Ivey MD 6 [place] [address] Social History Tobacco Use Types Packs/Day Years Used Date Smoking Tobacco: Never Alcohol Use Standard Drinks/Week Comments No 0 (1 standard drink = 0.6 oz pur e alcohol) not currently Sex and Gender Information Value Date Recorded Sex Assigned at Not on file Legal Sex 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 PUPPET DEVELOPER Gender Identity Not on file Sexual Orientation Not on file 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 Plan of Treatment Upcoming Encounters Date Type Department Care Team (Latest Contact Info) Description 02/13/2025 3:20 PM CDT Appointment [facility] Imaging [address] [facility] [address] [place] [phone] Kayode Ivey MD 6 [place] [address] 03/07/2025 3:00 PM CDT Ancillary Procedure [address] [place] [address] Srinivas Stern PA-C [address] [place] [address] [phone] 04/24/2025 2:40 PM CDT Virtual Visit [facility] Gastroenterology Clinic [address] [address] Alexis Torres MD 420 [place] [address] Srinivas Stern PA-C 909 [place], [place] 419215 06/05/2025 3:30 PM CDT Virtual Visit Viola MADERA MTM [address] [facility] [address] 2nd [place] [phone] Kayode Ivey MD 516 [place] [address] Bandar Casas, [facility] 420 [facility] 812 [place], [place] 748265 documented as of this encounter Visit Diagnoses Not on filedocumented in this encounter Additional Health Concerns Infection Onset Date Last Indicated Resolved Time MRSA-Contact Isolation Comment: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, chest, and elbow 02/17/2016 02/17/2016 Rule Out C-difficile 10/04/2023 10/05/2023 024 7:28 PM PUPPET DEVELOPER C-difficile 10/05/2023 10/05/2023 11/04/2023 11:3 9 PM PUPPET DEVELOPER Rule Out C-difficile 09/03/2024 09/04/2024 025 12:45 PM PUPPET DEVELOPER Assessment Noted Time PHQ-9 Depression Total Score: 9 03/02/20 16 7:16 AM CDT documented as of this encounter Care Teams Route Sales Driver Relationship Specialty Start Date End Date Jairo Vasquez MD PCP - General Family Medicine - Sports Medicine 12/29/15 Kylee Dailey MD [address] [place] [address] [address] [place] [address] Internal Medicine 04/01/17 Kayode Ivey MD [address] [place] [address] Gastroenterology 04/01/17 Nicolasa Perez APRN COMMERCIAL TITLE EXAMINER [address] [place] [address] [id number] [place], [place] 712305 Nurse Practitioner Nurse Practitioner 04/28/17 Loyda Dickey RN Nurse Coordinator Neurology 05/26/17 02/26/19 Srinivas Stern PA-C [address] [place] [address] [phone] Physician Knowledge Analyst Physician Knowledge Analyst 10/02/18 Srinivas Stern PA-C [address] [place] [address] [phone] Assigned Heart and Vascular Provider 11/19/20 06/27/21 Violet Ta [facility] [address] [place] [address] Pharmacist Pharmacist 12/29/20 02/08/21 Sue Mckeon [facility] [address] [place] [address] [phone] Pharmacist Pharmacist Haunted History Tour Guide 02/09/21 06/29/22 Karen Trinh MD [address] [place] [address] [phone] Assigned Infectious Disease Provider 02/08/21 07/30/22 Violet Ta [facility] [address] [place] [address] [phone] Assigned MTM Pharmacist 02/27/22 05/21/22 Violet Ta [facility] [address] [place] [address] [address] [place] [address] Assigned MTM Pharmacist 06/02/22 07/09/22 Srinivas Stern PA-C 909 [place] [address] Assigned Gastroenterology Provider 07/17/22 Bandar Casas RPH [address] [address] Pharmacist Pharmacist 08/18/23 Bandar Casas R[facility] [address] [place] [address] Assigned MTM Pharmacist 08/27/23 Ayana Zhang PA-C [address] [place] [address] Physician Knowledge Analyst Rheumatology 04/16/24 Srinivas Stern PA-C [address] [place] [address] Home Infusion Following Provider Gastroenterology 07/11/24 10/05/24 documented as of this encounter
--- OUTSIDE RECORDS SUMMARY | 2025-01-15 17:26 | XMS_ITS | Encounter Summary ---
Author Organization [facility] Address [address] [place] [address] Care Team Providers Care Sap Basis Consultant Name Role Phone Jairo Vasquez MD Primary Care Provider [phone] Kylee Dailey MD Unavailable + Kayode Ivey MD Unavailable [phone] Nicolasa Perez APRN UNIT MANAGER Unavaila ble Loyda Dickey RN Unavailable +[phone] Srinivas Stern PA-C Unavailable [phone] Srinivas Stern PA-C Unavailable +[phone] Violet Ta [facility] Unavailable +[phone] Sue Mckeon [facility] Unavailable [phone] Karen Trinh MD Unavailable +[phone] Violet Ta [facility] Unavailable +[phone] Violet Ta [facility] Unavailable +[phone] Srinivas Stern PA-C Unavailable +[phone] Bandar Casas [facility] Unavailable [phone] Bandar Casas [facility] Unavailable [phone] Ayana Zhang PA-C Unavailable [phone] Srinivas Stern PA-C Unavailable Encounter Details Date Type Department Care Team (Late st Contact Info) Description 06/24/2016 MyC Medical Advice [facility] Gastroenterology and IBD Clinic [address] [place] [address] Kayode Ivey MD 6 [place] [address] Social History Tobacco Use Types Packs/Day Years Used Date Smoking Tobacco: Never Alcohol Use Standard Drinks/Week Comments No 0 (1 standard drink = 0.6 oz pur e alcohol) not currently Sex and Gender Information Value Date Recorded Sex Assigned at Not on file Legal Sex 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 PRODUCT ACCOUNTANT Gender Identity Not on file Sexual Orientation Not on file 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 Gastroenterology Clinic [address] [address] Alexis Torres MD 420 [place] [address] Srinivas Stern PA-C 909 [place], [place] 770215 06/05/2025 3:30 PM CDT Virtual Visit Viola MADERA MTM 909 [facility] [address] 2nd [place] [phone] Kayode Ivey MD 516 [place] [address] Bandar Casas, [facility] 420 [facility] 812 [place], [place] 035685 documented as of this encounter Visit Diagnoses Not on filedocumented in this encounter Additional Health Concerns Infection Onset Date Last Indicated Resolved Time MRSA-Contact Isolation Comment: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, chest, and elbow 02/17/2016 02/17/2016 Rule Out C-difficile 10/04/2023 10/05/2023 024 7:28 PM PRODUCT ACCOUNTANT C-difficile 10/05/2023 10/05/2023 11/04/2023 11:3 9 PM PRODUCT ACCOUNTANT Rule Out C-difficile 09/03/2024 09/04/2024 025 12:45 PM PRODUCT ACCOUNTANT Assessment Noted Time PHQ-9 Depression Total Score: 9 03/02/20 16 7:16 AM CDT documented as of this encounter Care Teams Sap Basis Consultant Relationship Specialty Start Date End Date Jairo Vasquez MD PCP - General Family Medicine - Sports Medicine 12/29/15 Kylee Dailey MD [address] [place] [address] 2[address] [place] [address] Internal Medicine 04/01/17 Kayode Ivey MD [address] [place] [address] Gastroenterology 04/01/17 Nicolasa Perez APRN UNIT MANAGER [address] [place] [address] [id number] [place], [place] 958725 Nurse Practitioner Nurse Practitioner 04/28/17 Loyda Dickey RN Nurse Coordinator Neurology 05/26/17 02/26/19 Srinivas Stern PA-C [address] [place] [address] [phone] Physician Hotel And Dining Room Cashier Physician Hotel And Dining Room Cashier 10/02/18 Srinivas Stern PA-C [address] [place] [address] [phone] Assigned Heart and Vascular Provider 11/19/20 06/27/21 Violet Ta [facility] [address] [place] [address] Pharmacist Pharmacist 12/29/20 02/08/21 Sue Mckeon [facility] [address] [place] [address] [phone] Pharmacist Pharmacist Family Health Nurse Practitioner 02/09/21 06/29/22 Karen Trinh MD [address] [place] [address] [phone] Assigned Infectious Disease Provider 02/08/21 07/30/22 Violet Ta [facility] [address] [place] [address] [phone] Assigned MTM Pharmacist 02/27/22 05/21/22 Violet Ta [facility] [address] [place] [address] [address] [place] [address] Assigned MTM Pharmacist 06/02/22 07/09/22 Srinivas Stern PA-C 909 [place] [address] Assigned Gastroenterology Provider 07/17/22 Bandar Casas RPH [address] [address] Pharmacist Pharmacist 08/18/23 Bandar Casas RPH [address] [place] [address] Assigned MTM Pharmacist 08/27/23 Ayana Zhang PA-C [address] [place] [address] Physician Hotel And Dining Room Cashier Rheumatology 04/16/24 Srinivas Stern PA-C [address] [place] [address] Home Infusion Following Provider Gastroenterology 07/11/24 10/05/24 documented as of this encounter
--- OUTSIDE RECORDS SUMMARY | 2025-01-15 17:26 | XMS_ITS | Encounter Summary ---
Author Organization [facility] Address [address] [place] [address]. [place] [address] Care Team Providers Care Healthcare Account Manager Name Role Phone Jairo Vasquez MD Primary Care Provider Kylee Dailey MD Unavailable + Kayode Ivey MD Unavailable [phone] Nicolasa Perez APRN MATHEMATICIAN RESEARCH Unavaila ble Srinivas Stern-C Unavailable [phone] Srinivas Stern-C Unavailable Bandar Casas [facility] Unavailable Bandar Casas [facility] Unavailable Ayana Zhang-C Unavailable Reason for Visit * Reason Onset Date Comments entyvio pen cost (resolved) 10/19/2024 Encounter Details Date Type Department Care Team (Late st Contact Info) Description 10/19/2024 [facility] Medical Advice [facility] [address] [facility] [address] 2nd [place] [address] Bandar Casas, [facility] 420 [facility] 812 [place] [address] entyvio pen cost (resolved) Social [...] on file Legal Sex 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 Kennedy Casas, PharmD, BCPS [facility] Pharmacist [facility] Gastroenterology q R INSTALLATION HELPER documented in this encounter Plan of Treatment Upcoming Encounters Date Type Department Care Team (Latest Contact Info) Description 02/13/2025 3:20 PM CDT Appointment [facility] Imaging [address] [facility] [address] [place] [address] Kayode Ivey MD [address] [place] [address] 448205 03/07/2025 3:00 PM CDT Ancillary Procedure [address] [place] [address] Srinivas Stern PA-C [address] [place] [address] [phone] 04/24/2025 2:40 PM CDT Virtual Visit [facility] Gastro[facility]ology Clinic [address] 4th [place] [phone] Alexis Torres MD 420 [place], [place] [phone] Srinivas Stern PA-C [address] [place] [address] [phone] 06/05/2025 3:30 PM CDT Virtual [facility] 2nd [place] [phone] Kayode Ivey MD [address] [place] [address] [phone] Bandar Casas [facility] 420 [facility] 812 [place], [place] [phone] documented as of this encounter Visit Diagnoses Not on filedocumented in this encounter Additional Health Concerns Infection Onset Date Last Indicated Resolved Time MRSA-Contact Isolation Comment: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, chest, and elbow 02/17/2016 02/17/2016 Assessment Noted Time PHQ-9 Depression Total Score: 9 03/02/20 16 7:16 AM CDT documented as of this encounter Care Teams Healthcare Account Manager Relationship Specialty Start Date End Date Jairo Vasquez MD PCP - General Family Medicine - Sports Medicine 12/29/15 Kylee Dailey MD [address] [place], [place] [address]B 2A [place], [place] 935[address] Internal Medicine 04/01/17 Kayode Ivey MD 6 [place], [place] 340405 Gastroenterology 04/01/17 Nicolasa Perez APRN MATHEMATICIAN RESEARCH [address] [place] [address] [id number] [place], [place] [phone] Nurse Practitioner Nurse Practitioner 04/28/17 Srinivas Stern PA-C [address] [place] [address] 024965 Physician Window Cutter Physician Window Cutter 10/02/18 Srinivas Stern PA-C [address] [place] [address] [phone] Assigned Gastroenterology Provider 07/17/22 Bandar Casas R[facility] 420 [facility] 812 [place] [address] Pharmacist Pharmacist 08/18/23 Bandar Casas RPH 420 [facility] 812 [place] [address] Assigned MTM Pharmacist 08/27/23 Ayana Zhang PA-C 5200 [place] [address] Physician Window Cutter Rheumatology 04/16/24 documented as of this encounter
--- OUTSIDE RECORDS SUMMARY | 2025-01-15 17:26 | XMS_ITS | Encounter Summary ---
Author Organization [facility] Address [address] [place] [address] Care Team Providers Care Silverware Buffing Machine Operator Name Role Phone Jairo Vasquez MD Primary Care Provider [phone] Kylee Dailey MD Unavailable + Kayode Ivey MD Unavailable [phone] Nicolasa Perez APRN SCREW MACHINE SET UP OPERATOR TOOL Unavaila ble Loyda Dickey RN Unavailable [phone] Srinivas Stern PA-C Unavailable [phone] Srinivas Stern PA-C Unavailable +[phone] Violet Ta [facility] Unavailable +[phone] Sue Mckeon [facility] Unavailable [phone] Karen Trinh MD Unavailable +[phone] Violet Ta [facility] Unavailable [phone] Violet Ta [facility] Unavailable +[phone] Srinivas Stern PA-C Unavailable +[phone] Bandar Casas [facility] Unavailable [phone] Bandar Casas [facility] Unavailable [phone] Ayana Zhang PA-C Unavailable [phone] Srinivas Stern PA-C Unavailable [phone] Encounter Details Date Type Department Care Team (Late st Contact Info) Description 06/23/2017 MyC Medical Advice [facility] Neurology [address] [place] [address] 3rd [place] [address] Eliu Perezmila Pengshameka, DEVELOPMENT CONSULTANT SCREW MACHINE SET UP OPERATOR TOOL 909 [facility] [id number] [place] [address] Social History Tobacco Use Types Packs/Day Years Used Date Smoking Tobacco: Never Smokeless Tobacco: Never Alcohol Use Standard Drinks/Week Comments Yes 13 (1 standard drink = 0.6 oz pu re alcohol) MONTHLY Sex and Gender Information Value Date Recorded Sex Assigned at Not on file Legal Sex 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 HARD 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 HAND ENGRAVER Gender Identity Not on file Sexual Orientation Not on file 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 Plan of Treatment Upcoming Encounters Date Type Department Care Team (Latest Contact Info) Description 02/13/2025 3:20 PM CDT Appointment [facility] Imaging [address] [facility] [address] [place] [address] Kayode Ivey MD 516 [place] [address] 03/07/2025 3:00 PM CDT Ancillary Procedure [facility] [address] [facility] [address] [place] [address] Srinivas Stern PA-C 9 [place] [address] 04/24/2025 2:40 PM CDT Virtual Visit [facility] Gastroenterology Clinic [address] [place] [address] Alexis Torres MD 420 [place] [address] Srinivas Stern PA-C 909 [place] [address] 06/05/2025 3:30 PM CDT Virtual Visit [place] 909 [facility] [address] 2nd [place] [phone] Kayode Ivey MD 516 [place] [address] Bandar Casas, [facility] 420 [facility] 812 [place] [address] documented as of this encounter Visit Diagnoses Not on filedocumented in this encounter Additional Health Concerns Infection Onset Date Last Indicated Resolved Time MRSA-Contact Isolation Comment: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, chest, and elbow 02/17/2016 02/17/2016 Rule Out C-difficile 10/04/2023 10/05/2023 024 7:28 PM HARD METALS HAND ENGRAVER C-difficile 10/05/2023 10/05/2023 11/04/2023 11:3 9 PM HARD METALS HAND ENGRAVER Rule Out C-difficile 09/03/2024 09/04/2024 025 12:45 PM HARD METALS HAND ENGRAVER Assessment Noted Time PHQ-9 Depression Total Score: 9 03/02/20 16 7:16 AM CDT documented as of this encounter Care Teams Silverware Buffing Machine Operator Relationship Specialty Start Date End Date Jairo Vasquez MD PCP - General Family Medicine - Sports Medicine 12/29/15 Kylee Dailey MD [address] [place] [address] [phone] Internal Medicine 04/01/17 Kayode Ivey MD [address] [place] [address] [phone] Gastroenterology 04/01/17 Nicolasa Perez APRN SCREW MACHINE SET UP OPERATOR TOOL [address] [place] [address] [id number] [place] [address] Nurse Practitioner Nurse Practitioner 04/28/17 Loyda Dickey RN Nurse Coordinator Neurology 05/26/17 02/26/19 Srinivas Stern PA-C [address] [place] [address] [phone] Physician Mechanical Engineering Manager Physician Mechanical Engineering Manager 10/02/18 Srinivas Stern PA-C [address] [place] [address] 317385 Assigned Heart and Vascular Provider 11/19/20 06/27/21 Violet Ta [facility] [address] [place] [address] Pharmacist Pharmacist 12/29/20 02/08/21 Sue Mckeon [facility] [address] [place] [address] Pharmacist Pharmacist Track Equipment Operator 02/09/21 06/29/22 Karen Trinh MD [address] [place] [address]751 Assigned Infectious Disease Provider 02/08/21 07/30/22 Violet Ta [facility] [address] [place] [address] Assigned MTM Pharmacist 02/27/22 05/21/22 Violet Ta [facility] [address] [place] [address] Assigned MTM Pharmacist 06/02/22 07/09/22 Srinivas Stern PA-C 909 [place] [address] Assigned Gastroenterology Provider 07/17/22 Bandar Casas [facility] [address] [address] Pharmacist Pharmacist 08/18/23 Bandar Casas [facility] [address] [address] Assigned MTM Pharmacist 08/27/23 Ayana Zhang PA-C 5200 [place] [address] Physician Mechanical Engineering Manager Rheumatology 04/16/24 Srinivas Stern PA-C 909 [place], [place] 010955 Home Infusion Following Provider Gastroenterology 07/11/24 10/05/24 documented as of this encounter
--- OUTSIDE RECORDS SUMMARY | 2025-01-15 17:26 | XMS_ITS | Encounter Summary ---
Author Organization [facility] Address [address] [place] [address] Care Team Providers Care Patient Registration Rep Name Role Phone Jairo Vasquez MD Primary Care Provider [phone] Kylee Dailey MD Unavailable + Kayode Ivey MD Unavailable [phone] Nicolasa Perez APRN LOCAL SALES ASSOCIATE Unavaila ble Loyda Dickey RN Unavailable [phone] Srinivas Stern PA-C Unavailable +[phone] Srinivas Stern PA-C Unavailable +[phone] Violet Ta [facility] Unavailable [phone] Sue Mckeon [facility] Unavailable [phone] Karen Trinh MD Unavailable +[phone] Violet Ta [facility] Unavailable +[phone] Violet Ta [facility] Unavailable +[phone] Srinivas Stern PA-C Unavailable +[phone] Bandar Casas [facility] Unavailable [phone] Bandar Casas [facility] Unavailable Ayana Zhang PA-C Unavailable [phone] Srinivas Stern PA-C Unavailable Encounter Details Date Type Department Care Team (Late st Contact Info) Description 07/18/2016 MyC Medical Advice [facility] Gastroenterology and IBD Clinic [address] [place] [address] Kayode Ivey MD 6 [place] [address] Social History Tobacco Use Types Packs/Day Years Used Date Smoking Tobacco: Never Alcohol Use Standard Drinks/Week Comments No 0 (1 standard drink = 0.6 oz pur e alcohol) not currently Sex and Gender Information Value Date Recorded Sex Assigned at Not on file 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 Imaging [address] [facility] [address] [place] [phone] Kayode Ivey MD 6 [place] [address] 03/07/2025 3:00 PM CDT Ancillary Procedure [address] [place] [address] Srinivas Stern PA-C [address] [place] [address] [phone] 04/24/2025 2:40 PM CDT Virtual Visit [facility] [address] [address] Alexis Torres MD 420 [place] [address] Srinivas Stern PA-C 909 [place], [place] 091775 06/05/2025 3:30 PM CDT Virtual Visit Viola MADERA MTM 909 [facility] [address] 2nd [place] [phone] Kayode Ivye MD 516 [place] [address] Bandar Casas, [facility] 420 [facility] 812 [place], [place] [phone] documented as of this encounter Visit Diagnoses Not on filedocumented in this encounter Additional Health Concerns Infection Onset Date Last Indicated Resolved Time MRSA-Contact Isolation Comment: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, chest, and elbow 02/17/2016 02/17/2016 Rule Out C-difficile 10/04/2023 10/05/2023 024 7:28 PM METERMAN C-difficile 10/05/2023 10/05/2023 11/04/2023 11:3 9 PM METERMAN Rule Out C-difficile 09/03/2024 09/04/2024 025 12:45 PM METERMAN Assessment Noted Time PHQ-9 Depression Total Score: 9 03/02/20 16 7:16 AM CDT documented as of this encounter Care Teams Patient Registration Rep Relationship Specialty Start Date End Date Jairo Vasquez MD PCP - General Family Medicine - Sports Medicine 12/29/15 Kylee Dailey MD [address] [place] [address] 2[address] [place] [address] Internal Medicine 04/01/17 Kayode Ivey MD [address] [place] [address] Gastroenterology 04/01/17 Nicolasa Perez APRN LOCAL SALES ASSOCIATE [address] [place] [address] [id number] [place], [place] 949325 Nurse Practitioner Nurse Practitioner 04/28/17 Loyda Dickey RN Nurse Coordinator Neurology 05/26/17 02/26/19 Srinivas Stern PA-C [address] [place] [address] [phone] Physician Metallurgical Laboratory Assistant Physician Metallurgical Laboratory Assistant 10/02/18 Srinivas Stern PA-C [address] [place] [address] [phone] Assigned Heart and Vascular Provider 11/19/20 06/27/21 Violet Ta [facility] [address] [place] [address] Pharmacist Pharmacist 12/29/20 02/08/21 Sue Mckeon [facility] [address] [place] [address] 731955 Pharmacist Pharmacist Substation Operator Apprentice 02/09/21 06/29/22 Karen Trinh MD [address] [place] [address] [phone] Assigned Infectious Disease Provider 02/08/21 07/30/22 Violet Ta [facility] [address] [place] [address] [phone] Assigned MTM Pharmacist 02/27/22 05/21/22 Violet Ta [facility] [address] [place] [address] [address] [place] [address] Assigned MTM Pharmacist 06/02/22 07/09/22 Srinivas Stern PA-C 909 [place] [address] Assigned Gastroenterology Provider 07/17/22 Bandar Casas RPH [address] [address] Pharmacist Pharmacist 08/18/23 Bandar Casas RPH [address] [place] [address] Assigned MTM Pharmacist 08/27/23 Ayana Zhang PA-C [address] [place] [address] Physician Metallurgical Laboratory Assistant Rheumatology 04/16/24 Srinivas Stern PA-C [address] [place] [address] Home Infusion Following Provider Gastroenterology 07/11/24 10/05/24 documented as of this encounter
--- OUTSIDE RECORDS SUMMARY | 2025-01-15 17:27 | XMS_ITS | Encounter Summary ---
Author Organization [facility] Address [address] [place] [address] Care Team Providers Care [employer] Teacher Name Role Phone Jairo Vasquez MD Primary Care Provider [phone] Kylee Dailey MD Unavailable + Kayode Ivey MD Unavailable [phone] Nicolasa Perez APRN PHYSICIAN PRACTICE MANAGER Unavaila ble Srinivas Stern PA-C Unavailable Sue Mckeon [facility] Unavailable Karen Trinh MD Unavailable [phone] Violet Ta [facility] Unavailable Violet Ta [facility] Unavailable [phone] Srinivas Stern PA-C Unavailable [phone] Bandar Casas [facility] Unavailable [phone] Bandar Casas [facility] Unavailable [phone] Ayana Zhang PA-C Unavailable Srinivas Stern PA-C Unavailable [phone] Encounter Details Date Type Department Care Team (Late st Contact Info) Description 2021 [facility]ology Clinic [address] [place] [address] Kayode Ivey MD [address] [place] [address] [phone] Social History Tobacco Use Types Packs/Day Years Used Date Smoking Tobacco: Never Smokeless Tobacco: Never Alcohol Use Standard Drinks/Week Comments Yes 13 (1 standard drink = 0.6 oz pu re alcohol) MONTHLY PHQ-2 Answer Date Recorded PHQ-2 Score 1 01/28/2021 Sex and Gender Information Value Date Recorded Sex Assigned at Not on file Legal Sex 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 CLAIMS COORDINATOR Gender Identity Not on file Sexual Orientation Not on file 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 No / Unsure 10/06/2021 2:41 PM CLAIMS COORDINATOR documented as of this encounter Plan of Treatment Upcoming Encounters Date Type Department Care Team (Latest Contact Info) Description 02/13/2025 3:20 PM CDT Appointment [facility] Imaging [address] [facility] [address] [place] [address] Kayode Ivey MD [address] [place] [address] 424185 03/07/2025 3:00 PM CDT Ancillary Procedure [address] [place] [address] Srinivas Stern PA-C [address] [place] [address] 04/24/2025 2:40 PM CDT Virtual Visit [facility] Gastroenterology Clinic [address] 4th [place] [address] Alexis Torres MD 420 [place], [place] [phone] Srinivas Stern PA-C 909 [place], [place] [phone] 06/05/2025 3:30 PM CDT Virtual Visit [facility] 909 [facility] [address] 2nd [place] [phone] Kayode Ivey MD 516 [place] [address] Bandar Casas, [facility] 420 [facility] 812 [place], [place] 385265 documented as of this encounter Visit Diagnoses Not on filedocumented in this encounter Additional Health Concerns Infection Onset Date Last Indicated Resolved Time MRSA-Contact Isolation Comment: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, chest, and elbow 02/17/2016 02/17/2016 Rule Out C-difficile 10/04/2023 10/05/2023 024 7:28 PM CLAIMS COORDINATOR C-difficile 10/05/2023 10/05/2023 11/04/2023 11:3 9 PM CLAIMS COORDINATOR Rule Out C-difficile 09/03/2024 09/04/2024 025 12:45 PM CLAIMS COORDINATOR Assessment Noted Time PHQ-9 Depression Total Score: 9 03/02/20 16 7:16 AM CDT documented as of this encounter Care Teams [employer] Teacher Relationship Specialty Start Date End Date Jairo Vasquez MD PCP - General Family Medicine - Sports Medicine 12/29/15 Kylee Dailey MD [address] [place] [address] 2A [place], [place] [phone] Internal Medicine 04/01/17 Kayode Ivey MD [address] [place] [address] Gastroenterology 04/01/17 Nicolasa Perez APRN CNP [address] [place] [address] [id number] [place] [address] Nurse Practitioner Nurse Practitioner 04/28/17 Srinivas Stern PA-C [address] [place] [address] Physician Health Sciences Department Chair Physician Health Sciences Department Chair 10/02/18 Sue Mckeon [facility] [address] [place] [address] Pharmacist Pharmacist Pump Press Operator 02/09/21 06/29/22 Karen Trinh MD [address] [place] [phone] Assigned Infectious Disease Provider 02/08/21 07/30/22 Violet Ta, [facility] [address] [place] [address] Assigned MTM Pharmacist 02/27/22 05/21/22 [facility] [address] [place] [address] Assigned MTM Pharmacist 06/02/22 07/09/22 Srinivas Stern PA-C [address] [place] [address] Assigned Gastroenterology Provider 07/17/22 Bandar Casas [facility] [address] [place] 225542 [place] [address] Pharmacist Pharmacist 08/18/23 Bandar Casas [facility] 420 [facility] 812 [place] [address] Assigned MTM Pharmacist 08/27/23 Ayana Zhang PA-C [address] [place] [address] Physician Health Sciences Department Chair Rheumatology 04/16/24 Srinivas Stern PA-C 909 [place] [address] Home Infusion Following Provider Gastroenterology 07/11/24 10/05/24 documented as of this encounter
--- OUTSIDE RECORDS SUMMARY | 2025-01-15 17:27 | XMS_ITS | Encounter Summary ---
Author Organization [facility] Address [address] [place] [address]. [place] [address] Care Team Providers Care Training And Quality Manager Name Role Phone Jairo Vasquez MD Primary Care Provider Kylee Dailey MD Unavailable + Kayode Ivey MD Unavailable [phone] Nicolasa Perez APRN SLAG DUMPER Unavaila ble Srinivas Stern PA-C Unavailable [phone] Srinivas Stern-C Unavailable Bandar Casas [facility] Unavailable Bandar Casas [facility] Unavailable [phone] Ayana Zhang PA-C Unavailable Encounter Details Date Type Department Care Team (Late st Contact Info) Description 12/31/2024 [facility] Medical Advice 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 Imaging [address] [facility] [address] [place] [phone] Kayode Ivey MD [address] [place] [address] [phone] 03/07/2025 3:00 PM CDT Ancillary Procedure [address] [place] [address] Srinivas Stern PA-C [address] [place] [address] 579105 04/24/2025 2:40 PM CDT Virtual Visit [facility] Gastroenterology Clinic [address]th [place] [phone] Alexis Torres MD 420 [place], [place] 429055 Srinivas Stern PA-C [address] [place] [address] 087505 06/05/2025 3:30 PM CDT Virtual Visit [facility] GI [facility] [address] [place] [address] 2nd [place] [phone] Kayode Ivey MD [address] [place] [address] [phone] Bandar Casas [facility] 420 [facility] 812 [place], [place] 865945 documented as of this encounter Visit Diagnoses Not on filedocumented in this encounter Additional Health Concerns Infection Onset Date Last Indicated Resolved Time MRSA-Contact Isolation Comment: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, chest, and elbow 02/17/2016 02/17/2016 Assessment Noted Time PHQ-9 Depression Total Score: 9 03/02/20 16 7:16 AM CDT documented as of this encounter Care Teams Training And Quality Manager Relationship Specialty Start Date End Date Jairo Vasquez MD PCP - General Family Medicine - Sports Medicine 12/29/15 Kylee Dailey MD [address] [place] [address] 2A [place], [place] 844265 Internal Medicine 04/01/17 Kayode Ivey MD [address] [place] [address] [phone] Gastroenterology 04/01/17 Nicolasa Perez APRN SLAG DUMPER [address] [place] [address] [place], [place] 8[address] Nurse Practitioner Nurse Practitioner 04/28/17 Srinivas Stern PA-C [address] [place] [address] Physician Web Editor Physician Web Editor 10/02/18 Srinivas Stern PA-C [address] [place] [address] Assigned Gastroenterology Provider 07/17/22 Bandar Casas RPH [address] [place] [address] 812 [place] [address] Pharmacist Pharmacist 08/18/23 Bandar Casas RPH [address] [place] [address] Assigned MTM Pharmacist 08/27/23 Ayana Zhang PA-C [address] [place] [address] Physician Web Editor Rheumatology 04/16/24 documented as of this encounter
--- OUTSIDE RECORDS SUMMARY | 2025-01-15 17:27 | XMS_ITS | Encounter Summary ---
Author Organization [facility] Address [address] [place] [address] Care Team Providers Care Disc Inspector Name Role Phone Jairo Vasquez MD Primary Care Provider [phone] Kylee Dailey MD Unavailable + Kayode Ivey MD Unavailable [phone] Nicolasa Perez APRN DAYCARE TEACHER Unavaila ble Loyda Dickey RN Unavailable [phone] Srinivas Stern PA-C Unavailable [phone] Srinivas Stern PA-C Unavailable +[phone] Violet Ta [facility] Unavailable +[phone] Sue Mckeon [facility] Unavailable [phone] Karen Trinh MD Unavailable +[phone] Violet Ta [facility] Unavailable [phone] Violet Ta [facility] Unavailable [phone] Srinivas Stern PA-C Unavailable +[phone] Bandar Casas [facility] Unavailable [phone] Bandar Casas [facility] Unavailable [phone] Ayana Zhang PA-C Unavailable [phone] Srinivas Stern PA-C Unavailable Encounter Details Date Type Department Care Team (Late st Contact Info) Description 10/10/2017 MyC Medical Advice [facility] Gastroenterology and IBD Clinic [address] [place] [address] Kayode Ivey MD 6 [place], [place] 070585 Social History Tobacco Use Types Packs/Day Years Used Date Smoking Tobacco: Never Smokeless Tobacco: Never Alcohol Use Standard Drinks/Week Comments Yes 13 (1 standard drink = 0.6 oz pu re alcohol) MONTHLY Sex and Gender Information Value Date Recorded Sex Assigned at Not on file Legal Sex 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 CERTIFICATION TECHNICIAN Gender Identity Not on file Sexual Orientation Not on file 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 Center Imaging [address] [facility] [address] [place] [phone] Kayode Ivey MD 6 [place] [address] 03/07/2025 3:00 PM CDT Ancillary Procedure [address] [place] [address] Srinivas Stern PA-C 9 [place], [place] 09[address]55 04/24/2025 2:40 PM CDT Virtual Visit [facility]ology Clinic [address] [address] Alexis Torres MD 420 [place] [address] Srinivas Stern PA-C 909 [place], [place] [phone] 06/05/2025 3:30 PM CDT Virtual Visit Viola MADERA [facility] 909 [facility] 2nd [place] [phone] Kayode Ivey MD 516 [place] [address] Bandar Casas, [facility] 420 [facility] 812 [place] [address] documented as of this encounter Visit Diagnoses Not on filedocumented in this encounter Additional Health Concerns Infection Onset Date Last Indicated Resolved Time MRSA-Contact Isolation Comment: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, chest, and elbow 02/17/2016 02/17/2016 Rule Out C-difficile 10/04/2023 10/05/2023 024 7:28 PM CERTIFICATION TECHNICIAN C-difficile 10/05/2023 10/05/2023 11/04/2023 11:3 9 PM CERTIFICATION TECHNICIAN Rule Out C-difficile 09/03/2024 09/04/2024 025 12:45 PM CERTIFICATION TECHNICIAN Assessment Noted Time PHQ-9 Depression Total Score: 9 03/02/20 16 7:16 AM CDT documented as of this encounter Care Teams Disc Inspector Relationship Specialty Start Date End Date Jairo Vasquez MD PCP - General Family Medicine - Sports Medicine 12/29/15 Kylee Dailey MD [address] [place] [address] 2A [place], [place] [phone] Internal Medicine 04/01/17 Kayode Ivey MD [address] [place] [address] Gastroenterology 04/01/17 Nicolasa Perez APRN DAYCARE TEACHER [address] [place] [address] [id number] [place], [place] 849795 Nurse Practitioner Nurse Practitioner 04/28/17 Loyda Dickey RN Nurse Coordinator Neurology 05/26/17 02/26/19 Srinivas Stern PA-C [address] [place] [address] Physician Timber Cruiser Physician Timber Cruiser 10/02/18 Srinivas Stern PA-C [address] [place] [address] Assigned Heart and Vascular Provider 11/19/20 06/27/21 Violet Ta [facility] [address] [place] [address] Pharmacist Pharmacist 12/29/20 02/08/21 Sue Mckeon [facility] [address] [place] [address] 213115 Pharmacist Pharmacist Cp Bleacher Operator 02/09/21 06/29/22 Karen Trinh MD [address] [place] [address] [phone] Assigned Infectious Disease Provider 02/08/21 07/30/22 Violet Ta [facility] [address] [place] [address] 96 [place], [place] [phone] Assigned MTM Pharmacist 02/27/22 05/21/22 Violet Ta [facility] 480 [facility] 96 [place] [address] Assigned MTM Pharmacist 06/02/22 07/09/22 Srinivas Stern PA-C [address] [place] [address] Assigned Gastroenterology Provider 07/17/22 Bandar Casas RPH 420 [facility] 812 [place] [address] Pharmacist Pharmacist 08/18/23 Bandar Casas RP [address] [address] Assigned MTM Pharmacist 08/27/23 Ayana Zhang PA-C [address] [place] [address] Physician Timber Cruiser Rheumatology 04/16/24 Srinivas Stern PA-C 909 [place] [address] Home Infusion Following Provider Gastroenterology 07/11/24 10/05/24 documented as of this encounter
--- OUTSIDE RECORDS SUMMARY | 2025-01-15 17:27 | XMS_ITS | Encounter Summary ---
Author Organization [facility] Address [address] [place] [address]21 Care Team Providers Care Order Tracer Name Role Phone Jairo Vasquez MD Primary Care Provider [phone] Kylee Dailey MD Unavailable + Kayode Ivey MD Unavailable +[phone] Nicolasa Perez APRN NETWORK PLANNER Unavaila ble Srinivas Stern PA-C Unavailable +[phone] Sirnivas Stern PA-C Unavailable +[phone] Violet Ta [facility] Unavailable +[phone] Sue Mckeon [facility] Unavailable [phone] Karen Trinh MD Unavailable +[phone] Violet Ta [facility] Unavailable +[phone] Violet Ta [facility] Unavailable +[phone] Srinivas Stern PA-C Unavailable +[phone] Bandar Casas [facility] Unavailable +[phone] Bandar Casas [facility] Unavailable +[phone] Ayana Zhang PA-C Unavailable +[phone] Srinivas Stern PA-C Unavailable +[phone] Encounter Details Date Type Department Care Team (Late st Contact Info) Description 12/26/2019 MyC Medical Advice [facility] [address] [place] [address] Blanca Menezes, RN Social History Tobacco Use Types Packs/Day Years Used Date Smoking Tobacco: Never Smokeless Tobacco: Never Alcohol Use Standard Drinks/Week Comments Yes 13 (1 standard drink = 0.6 oz pu re alcohol) MONTHLY PHQ-2 Answer Date Recorded PHQ-2 Score 2 08/20/2019 Sex and Gender Information Value Date Recorded Sex Assigned at Not on file Legal Sex 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 TITLE INSURANCE SALES REPRESENTATIVE Gender Identity Not on file Sexual [...] 3:20 PM CDT Appointment [facility] Imaging [address] [facility] [address] [place] [address] Kayode Ivey MD 516 [place], [place] 749[address] 03/07/2025 3:00 PM CDT Ancillary Procedure [facility] [address] [facility] [address] [place] [address] Srinivas Stern PA-C 909 [place] [address] 04/24/2025 2:40 PM CDT Virtual Visit [facility] [address] [phone] Alexis Torres MD 420 [place] [address] Srinivas Stern PA-C [address] [place], [place] 429265 06/05/2025 3:30 PM CDT Virtual Visit [facility] 909 [facility] 2nd [place] [address] Kayode Ivey MD [address] [place], [place] [phone] Bandar Casas, [facility] 420 [facility] 812 [place], [place] 716355 documented as of this encounter Visit Diagnoses Not on filedocumented in this encounter Additional Health Concerns Infection Onset Date Last Indicated Resolved Time MRSA-Contact Isolation Comment: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, chest, and elbow 02/17/2016 02/17/2016 Rule Out C-difficile 10/04/2023 10/05/2023 024 7:28 PM TITLE INSURANCE SALES REPRESENTATIVE C-difficile 10/05/2023 10/05/2023 11/04/2023 11:3 9 PM TITLE INSURANCE SALES REPRESENTATIVE Rule Out C-difficile 09/03/2024 09/04/2024 025 12:45 PM TITLE INSURANCE SALES REPRESENTATIVE Assessment Noted Time PHQ-9 Depression Total Score: 9 03/02/20 16 7:16 AM CDT documented as of this encounter Care Teams Order Tracer Relationship Specialty Start Date End Date Jairo Vasquez MD PCP - General Family Medicine - Sports Medicine 12/29/15 Kylee Dailey MD [address] [place] [address] [address] [place] [address] Internal Medicine 04/01/17 Kayode Ivey MD [address] [place] [address] Gastroenterology 04/01/17 Nicolasa Perez APRN NETWORK PLANNER [address] [place] [address] [id number] [place] [address] Nurse Practitioner Nurse Practitioner 04/28/17 Srinivas Stern PA-C [address] [place] [address] Physician Project Buyer Physician Project Buyer 10/02/18 Srinivas Stern PA-C [address] [place] [address] Assigned Heart and Vascular Provider 11/19/20 06/27/21 [facility] [address] [place] [address] Pharmacist Pharmacist 12/29/20 02/08/21 Sue Mckeon [facility] [address] [place] [address] Pharmacist Pharmacist Binder Sorter 02/09/21 06/29/22 Karen Trinh MD [address] [place] [address] [phone] Assigned Infectious Disease Provider 02/08/21 07/30/22 Violet Ta, [facility] [address] [place] [address] Assigned MTM Pharmacist 02/27/22 05/21/22 Violet Ta [facility] 480 [facility] [address] [place] [address] Assigned MTM Pharmacist 06/02/22 07/09/22 Srinivas Stern PA-C 909 [place] [address] Assigned Gastroenterology Provider 07/17/22 Bandar Casas [facility] [address] [phone] Pharmacist Pharmacist 08/18/23 Bandar Casas [facility] [address] [phone] Assigned MTM Pharmacist 08/27/23 Ayana Zhang PA-C [address] [place] [address] Physician Project Buyer Rheumatology 04/16/24 Srinivas Stern PA-C 909 [place] [address] Home Infusion Following Provider Gastroenterology 07/11/24 10/05/24 documented as of this encounter
--- OUTSIDE RECORDS SUMMARY | 2025-01-15 17:27 | XMS_ITS | Encounter Summary ---
Author Organization [facility] Address [address] [place] [address] Care Team Providers Care Elderly Sitter Name Role Phone Jairo Vasquez MD Primary Care Provider [phone] Kylee Dailey MD Unavailable + Kayode Ivey MD Unavailable [phone] Nicolasa Perez APRN DATA COMMUNICATIONS SOFTWARE CONSULTANT Unavaila ble Srinivas Stern PA-C Unavailable +[phone] Srinivas Stern PA-C Unavailable +[phone] Violet Ta [facility] Unavailable +[phone] Sue Mckeon [facility] Unavailable [phone] Karen Trinh MD Unavailable [phone] Violet Ta [facility] Unavailable +[phone] Violet Ta [facility] Unavailable +[phone] Srinivas Stern PA-C Unavailable +[phone] Bandar Casas [facility] Unavailable [phone] Bandar Casas [facility] Unavailable +[phone] Ayana Zhang PA-C Unavailable [phone] Srinivas Stern PA-C Unavailable +[phone] Encounter Details Date Type Department Care Team (Late st Contact Info) Description 11/14/2019 MyC Medical Advice [facility] [address] [place] [phone] Blanca Menezes, RN Social History Tobacco Use Types Packs/Day Years Used Date Smoking Tobacco: Never Smokeless Tobacco: Never Alcohol Use Standard Drinks/Week Comments Yes 13 (1 standard drink = 0.6 oz pu re alcohol) MONTHLY PHQ-2 Answer Date Recorded PHQ-2 Score 2 08/20/2019 Sex and Gender Information Value Date Recorded Sex Assigned at Not on file Legal Sex Male 2:58 AM PARASITOLOGY TEACHER Gender Identity Not on file Sexual Orientation Not on file 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 Plan of Treatment Upcoming Encounters Date Type Department Care Team (Latest Contact Info) Description 02/13/2025 3:20 PM CDT Appointment [facility] [address] [facility] [address] [place] [phone] Kayode Ivey MD 516 [place], [place] [phone] 03/07/2025 3:00 PM CDT Ancillary Procedure [address] [place] [address] Srinivas Stern PA-C [address] [place] [address] [phone] 04/24/2025 2:40 PM CDT Virtual Visit [facility] [address] [phone] Alexis Torres MD 420 [place], [place] 240615 Srinivas Stern PA-C [address] [place] [address] [phone] 06/05/2025 3:30 PM CDT [facility] Visit [facility] [address] [facility] [address] 2nd [place] [address] Kayode Ivey MD 516 [place], [place] 192545 Bandar Casas, [facility] 420 [facility] 812 [place], [place] 697075 documented as of this encounter Visit Diagnoses Not on filedocumented in this encounter Additional Health Concerns Infection Onset Date Last Indicated Resolved Time MRSA-Contact Isolation Comment: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, chest, and elbow 02/17/2016 02/17/2016 Rule Out C-difficile 10/04/2023 10/05/2023 024 7:28 PM PARASITOLOGY TEACHER C-difficile 10/05/2023 10/05/2023 11/04/2023 11:3 9 PM PARASITOLOGY TEACHER Rule Out C-difficile 09/03/2024 09/04/2024 025 12:45 PM PARASITOLOGY TEACHER Assessment Noted Time PHQ-9 Depression Total Score: 9 03/02/20 16 7:16 AM CDT documented as of this encounter Care Teams Elderly Sitter Relationship Specialty Start Date End Date Jairo Vasquez MD PCP - General Family Medicine - Sports Medicine 12/29/15 Kylee Dailey MD [address] [place], [place] [address]B 2[address] [place], [place] 181595 Internal Medicine 04/01/17 Kayode Ivey MD [address] [place] [address] [phone] Gastroenterology 04/01/17 Nicolasa Perez APRN DATA COMMUNICATIONS SOFTWARE CONSULTANT [address] [place] [address] [id number] [place] [address] Nurse Practitioner Nurse Practitioner 04/28/17 Srinivas Stern PA-C [address] [place] [address]01 Physician Basket Turner Physician Basket Turner 10/02/18 Srinivas Stren PA-C [address] [place] [address] [phone] Assigned Heart and Vascular Provider 11/19/20 06/27/21 Voilet Ta, [facility] [address] [place] [address] 28477 Pharmacist Pharmacist 12/29/20 02/08/21 Sue Mckeon [facility] [address] [place] [address] [phone] Pharmacist Pharmacist Cleat Blanker 02/09/21 06/29/22 Karen Trinh MD [address] [place] [address] [phone] Assigned Infectious Disease Provider 02/08/21 07/30/22 Violet Ta, [facility] [address] [place] [address] Assigned MTM Pharmacist 02/27/22 05/21/22 Violet Ta, [facility] [address] [place] [address] Assigned MTM Pharmacist 06/02/22 07/09/22 Srinivas Stern PA-C [address] [place] [address] [phone] Assigned Gastroenterology Provider 07/17/22 Bandar Casas [facility] [address] [place] [address] [phone] Pharmacist Pharmacist 08/18/23 Bandar Casas [facility] [address] [place] [address] Assigned MTM Pharmacist 08/27/23 Ayana Zhang PA-C [address] [place] [address] Physician Basket Turner Rheumatology 04/16/24 Srinivas Stern PA-C [address] [place] [address] [phone] Home Infusion Following Provider Gastroenterology 07/11/24 10/05/24 documented as of this encounter
--- OUTSIDE RECORDS SUMMARY | 2025-01-15 17:27 | XMS_ITS | Encounter Summary ---
Author Organization [facility] Address [address] [place] [address] Care Team Providers Care Inspector And Clerk Name Role Phone Jairo Vasquez MD Primary Care Provider [phone] Kylee Dailey MD Unavailable + Kayode Ivey MD Unavailable [phone] Nicolasa Perez APRN ACCOUNTS RECEIVABLE EXECUTIVE Unavaila ble Loyda Dickey RN Unavailable +[phone] Srinivas Stern PA-C Unavailable +[phone] Srinivas Stern PA-C Unavailable +[phone] Violet Ta [facility] Unavailable +[phone] Sue Mckeon [facility] Unavailable +[phone] Karen Trinh MD Unavailable +[phone] Viloet Ta [facility] Unavailable +[phone] Violet Ta [facility] Unavailable +[phone] Srinivas Stern PA-C Unavailable +[phone] Bandar Casas [facility] Unavailable +[phone] Bandar Casas [facility] Unavailable Ayana Zhang PA-C Unavailable [phone] Srinivas Stern PA-C Unavailable [phone] Encounter Details Date Type Department Care Team (Late st Contact Info) Description 03/18/2016 MyC Medical Advice [facility]enter[facility] [address] [place] [phone] Kayode Ivey MD 6 [place] [address] Social History Tobacco Use Types Packs/Day Years Used Date Smoking Tobacco: Never Alcohol Use Standard Drinks/Week Comments No 0 (1 standard drink = 0.6 oz pur e alcohol) not currently Sex and Gender Information Value Date Recorded Sex Assigned at Not on file Legal Sex 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 Gender Identity Not on file Sexual Orientation Not on file 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 Plan of Treatment Upcoming Encounters Date Type Department Care Team (Latest Contact Info) Description 02/13/2025 3:20 PM CDT Appointment [facility] Imaging [address] [facility] [address] [place] [phone] Kayode Ivey MD 6 [place] [address] 03/07/2025 3:00 PM CDT Ancillary Procedure [address] [place] [address] Srinivas Stern PA-C [address] [place] [address] [phone] 04/24/2025 2:40 PM CDT Virtual Visit [facility] [address] [address] Alexis Torres MD 420 [place] [address] Srinivas Stern PA-C 909 [place], [place] 326225 06/05/2025 3:30 PM CDT Virtual Visit [facility]TM 909 [facility] [address] 2nd [place] [phone] Kayode Ivey MD [address] [place] [address] Bandar Casas, [facility] [address] [facility] 812 [place], [place] 844965 documented as of this encounter Visit Diagnoses Not on filedocumented in this encounter Additional Health Concerns Infection Onset Date Last Indicated Resolved Time MRSA-Contact Isolation Comment: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, chest, and elbow 02/17/2016 02/17/2016 Rule Out C-difficile 10/04/2023 10/05/2023 024 7:28 PM 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 C-difficile 10/05/2023 10/05/2023 11/04/2023 11:3 9 PM 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 Rule Out C-difficile 09/03/2024 09/04/2024 025 12:45 PM 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 Assessment Noted Time PHQ-9 Depression Total Score: 9 03/02/20 16 7:16 AM CDT documented as of this encounter Care Teams Inspector And Clerk Relationship Specialty Start Date End Date Jairo Vasquez MD PCP - General Family Medicine - Sports Medicine 12/29/15 Kylee Dailey MD [address] [place] [address] 2[address] [place] [address] Internal Medicine 04/01/17 Kayode Ivey MD [address] [place] [address] Gastroenterology 04/01/17 Nicolasa Perez APRN ACCOUNTS RECEIVABLE EXECUTIVE [address] [place] [address] [id number] [place], [place] 652475 Nurse Practitioner Nurse Practitioner 04/28/17 Loyda Dickey RN Nurse Coordinator Neurology 05/26/17 02/26/19 Srinivas Stern PA-C [address] [place] [address] [phone] Physician Schedule Planning Manager Physician Schedule Planning Manager 10/02/18 Srinivas Stern PA-C [address] [place] [address] [phone] Assigned Heart and Vascular Provider 11/19/20 06/27/21 Violet Ta [facility] [address] [place] [address] Pharmacist Pharmacist 12/29/20 02/08/21 Sue Mckeon [facility] [address] [place] [address] [phone] Pharmacist Pharmacist Iron Caster 02/09/21 06/29/22 Karen Trinh MD [address] [place] [address] [phone] Assigned Infectious Disease Provider 02/08/21 07/30/22 Violet Ta [facility] [address] [place] [address] [phone] Assigned MTM Pharmacist 02/27/22 05/21/22 Violet Ta [facility] [address] [place] [address] [address] [place] [address] Assigned MTM Pharmacist 06/02/22 07/09/22 Srinivas Stern PA-C 909 [place] [address] Assigned Gastroenterology Provider 07/17/22 Bandar Casas R[facility] [address] [address] Pharmacist Pharmacist 08/18/23 Bandar Casas RPH [address] [place] [address] Assigned MTM Pharmacist 08/27/23 Ayana Zhang PA-C [address] [place] [address] Physician Schedule Planning Manager Rheumatology 04/16/24 Srinivas Stern PA-C [address] [place] [address] Home Infusion Following Provider Gastroenterology 07/11/24 10/05/24 documented as of this encounter
--- OUTSIDE RECORDS SUMMARY | 2025-01-15 17:27 | XMS_ITS | Encounter Summary ---
Author Organization [facility] Address [address] [place] [address]18 Care Team Providers Care Sheriffs Detective Name Role Phone Jairo Vasquez MD Primary Care Provider [phone] Kylee Dailey MD Unavailable + Kayode Ivey MD Unavailable [phone] Nicolasa Perez APRN SOLDERER ELECTRONIC Unavaila ble Loyda Dickey RN Unavailable +[phone] Srinivas Stern PA-C Unavailable +[phone] Srinivas Stern PA-C Unavailable +[phone] Violet Ta [facility] Unavailable +[phone] Sue Mckeon [facility] Unavailable +[phone] Karen Trinh MD Unavailable +[phone] Violet Ta [facility] Unavailable +[phone] Violet Ta [facility] Unavailable +[phone] Srinivas Stern PA-C Unavailable +[phone] Bandar Casas [facility] Unavailable +[phone] Bandar Casas [facility] Unavailable Ayana Zhang PA-C Unavailable [phone] Srinivas Stern PA-C Unavailable Encounter Details Date Type Department Care Team (Late st Contact Info) Description 03/12/2016 MyC Medical Advice [facility]astroenterology and IBD Clinic [address] [place] [address] Kayode Ivey MD 6 [place] [address] Social History Tobacco Use Types Packs/Day Years Used Date Smoking Tobacco: Never Alcohol Use Standard Drinks/Week Comments No 0 (1 standard drink = 0.6 oz pur e alcohol) not currently Sex and Gender Information Value Date Recorded Sex Assigned at Not on file 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 Sex 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 REGIONAL 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 Gender Identity Not on file Sexual Orientation Not on file 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 Plan of Treatment Upcoming Encounters Date Type Department Care Team (Latest Contact Info) Description 02/13/2025 3:20 PM CDT Appointment [facility] Imaging [address] [facility] [address] [place] [phone] Kayode Ivey MD 6 [place] [address] 03/07/2025 3:00 PM CDT Ancillary Procedure [address] [place] [address] Srinivas Stern PA-C [address] [place] [address] [phone] 04/24/2025 2:40 PM CDT Virtual Visit [facility] Gastroenterology Clinic [address] [address] Alexis Torres MD 420 [place] [address] Srinivas Stern PA-C 909 [place], [place] 341475 06/05/2025 3:30 PM CDT Virtual Visit [facility] 909 [facility] [address] 2nd [place] [phone] Kayode Ivey MD 516 [place] [address] Bandar Casas, [facility] 420 [facility] 812 [place], [place] 493965 documented as of this encounter Visit Diagnoses Not on filedocumented in this encounter Additional Health Concerns Infection Onset Date Last Indicated Resolved Time MRSA-Contact Isolation Comment: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, chest, and elbow 02/17/2016 02/17/2016 Rule Out C-difficile 10/04/2023 10/05/2023 024 7:28 PM REGIONAL 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 C-difficile 10/05/2023 10/05/2023 11/04/2023 11:3 9 PM REGIONAL 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 Rule Out C-difficile 09/03/2024 09/04/2024 025 12:45 PM REGIONAL 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 Assessment Noted Time PHQ-9 Depression Total Score: 9 03/02/20 16 7:16 AM CDT documented as of this encounter Care Teams Sheriffs Detective Relationship Specialty Start Date End Date Jairo Vasquez MD PCP - General Family Medicine - Sports Medicine 12/29/15 Kylee Dailey MD [address] [place] [address] 2A [place] [address] Internal Medicine 04/01/17 Kayode Ivey MD [address] [place] [address] Gastroenterology 04/01/17 Nicolasa Perez APRN SOLDERER ELECTRONIC [address] [place] [address] [id number] [place], [place] 433255 Nurse Practitioner Nurse Practitioner 04/28/17 Loyda Dickey RN Nurse Coordinator Neurology 05/26/17 02/26/19 Srinivas Stern PA-C [address] [place] [address] [phone] Physician Permit Specialist Physician Permit Specialist 10/02/18 Srinivas Stern PA-C [address] [place] [address] [phone] Assigned Heart and Vascular Provider 11/19/20 06/27/21 Violet Ta [facility] [address] [place] [address] Pharmacist Pharmacist 12/29/20 02/08/21 Sue Mckeon [facility] [address] [place] [address] [phone] Pharmacist Pharmacist Supervisor Component Assembler 02/09/21 06/29/22 Karen Trinh MD [address] [place] [address] [phone] Assigned Infectious Disease Provider 02/08/21 07/30/22 Violet Ta [facility] [address] [place] [address] [phone] Assigned MTM Pharmacist 02/27/22 05/21/22 Violet Ta [facility] [address] [place] [address] [address] [place] [address] Assigned MTM Pharmacist 06/02/22 07/09/22 Srinivas Stern PA-C 909 [place] [address] Assigned Gastroenterology Provider 07/17/22 Bandar Casas RPH [address] [address] Pharmacist Pharmacist 08/18/23 Bandar Casas RPH [address] [place] [address] Assigned MTM Pharmacist 08/27/23 Ayana Zhang PA-C [address] [place] [address] Physician Permit Specialist Rheumatology 04/16/24 Srinivas Stern PA-C [address] [place] [address] Home Infusion Following Provider Gastroenterology 07/11/24 10/05/24 documented as of this encounter
--- OUTSIDE RECORDS SUMMARY | 2025-01-15 17:27 | XMS_ITS | Encounter Summary ---
Author Organization [place] Address [facility]0 [place] [address] Care Team Providers Care Tunnel Drier Operator Name Role Phone Jairo Vasquez MD Primary Care Provider Kylee Dailey MD Unavailable + Kayode Ivey MD Unavailable [phone] Nicolasa Perez APRN BAG PRESSER Unavaila ble Srinivas Stern-C Unavailable Srinivas Stern-C Unavailable Bandar Casas [facility] Unavailable [phone] Bandar Casas [facility] Unavailable Ayana Zhang-C Unavailable Reason for Visit * Auth/Cert Specialty Diagnoses / Procedures Referred By Pérez fish Referred To Contact Surgery Diagnoses Ulcerative pancolitis without complication (H) Ulcerative pancolitis without complication (H) [K51.00] Procedures OH COLONOSCOPY W/WO BRUSH/WASH [place] COLOREC CANC SCRN,SCOPY NOT HI RISK Colon[place] [place] [address] [place] [address] Phone: tel: Referral ID Status Reason Start Date Expiration Date Visits Re quested Visits Authorized [id number] 1 1 Encounter Details Date Type Department Care Team (Late st Contact Info) Description 01/14/2025 2:00 PM CDT - 01/14/2025 2:40 PM CDT Surgery [facility] [address] [place] [address] [place] [address] [facility] [place] [address] Colonoscopy Surgery Details Date/Time Status Location OR [...] on file 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 If you arrive after 11 AM: Drink the other half of the CAPNIA jug at 6 AM day of procedure. [...] PRE-SEDATION H&P FOR OUTPATIENT PROCEDURES Igor Flores [id number] 1975 Procedure: colonoscopy Pre-procedure diagnosis: UC Past [...] AND BIOPSY; Surgeon: Kayode Ivey MD; [place] [facility] [place] N/A 06/07/2023 Procedure: COLONOSCOPY, WITH BIOPSY; Surgeon: Igor Galeas MD; [place] [facility] [place]IC [place] knee arthoscopy, high school, [...] flush 3 mL 3 mL Intracatheter Q8H [facility] Yuan Evans MD sodium chloride (PF) 0.9% [...] 3:20 PM CDT Appointment [facility] Imaging [address] [facility] [address] [place] [phone] Kayode Ivey MD [address] [place] [address] [id number] 03/07/2025 3:00 PM CDT Ancillary Procedure [address] [place] [address] Srinivas Stern PA-C [address] [place] [address] 595[address] 04/24/2025 2:40 PM CDT Virtual Visit [facility] [address] 4th [place] [phone] Alexis Torres MD 420 [place] [address] Srinivas Stern PA-C 909 [place] [address] 06/05/2025 3:30 PM CDT Virtual Visit [facility] GI MTM 909 [facility] 2nd [place] [address] Kayode Ivey MD 516 [place] [address] Bandar Casas RPH 420 [facility] 812 [place], [place] [address] Pending Results Name Type Priority Associated Diagnoses [...] * COLONOSCOPY (01/14/2025 1:48 PM CDT) COLONOSCOPY [facility] Patient Name: Igor Flores Procedure Date: 01/14/2025 1:48 PM Date of : 1975 Admit Type: Outpatient Age: 49 Gender: Male Note Status: Finalized Attending MD: YUAN EVANS MD, Instrument Name: [id number] Procedure: Colonoscopy Indications: Disease activity assessment of [...] bowel preparation was evaluated using the BBPS ([place] Bowel Preparation Scale) with scores of: Right [...] MG LABORATORY POC [facility] [address], [place] [address], [facility] documented in this encounter [...] documented as of this encounter Care Teams Tunnel Drier Operator Relationship Specialty Start Date End Date Jairo Vasquez MD PCP - General Family Medicine - Sports Medicine 12/29/15 Kylee Dailey MD [address] [place] [address] Internal Medicine 04/01/17 Kayode Ivey MD [address] [place] [address] [phone] Gastroenterology 04/01/17 Nicolasa Perez APRN CNP 909 [facility] [id number] [place] [address] Nurse Practitioner Nurse Practitioner 04/28/17 Srinivas Stern PA-C [address] [place] [address] [phone] Physician Vibrating Screen Operator Physician Vibrating Screen Operator 10/02/18 Srinivas Stern PA-C [address] [place] [address] [phone] Assigned Gastroenterology Provider 07/17/22 Bandar Casas RPH 420 [facility] 812 [place], [place] [phone] Pharmacist Pharmacist 08/18/23 Bandar Casas RPH 420 [facility] 812 [place] [address] Assigned MTM Pharmacist 08/27/23 Ayana Zhang PA-C [facility] [place] [address] Physician Vibrating Screen Operator Rheumatology 04/16/24 documented as of this encounter
--- OUTSIDE RECORDS SUMMARY | 2025-01-15 17:27 | XMS_ITS | Encounter Summary ---
Author Organization [place] Address [address] [place] [address] Care Team Providers Care Mash Filter Operator Name Role Phone Jairo Vasquez MD Primary Care Provider [phone] Kylee Dailey MD Unavailable + Kayode Ivey MD Unavailable [phone] Nicolsaa Perez APRN MARKETING CO OP Unavaila ble Loyda Dickey RN Unavailable [phone] Srinivas Stern PA-C Unavailable [phone] Srinivas Stern PA-C Unavailable +[phone] Violet Ta [facility] Unavailable [phone] Sue Mckeon [facility] Unavailable [phone] Karen Trinh MD Unavailable +[phone] Violet Ta [facility] Unavailable +[phone] Violet Ta [facility] Unavailable [phone] Srinivas Stern PA-C Unavailable +[phone] Bandar Casas [facility] Unavailable +[phone] Bandar Casas [facility] Unavailable Ayana Zhang PA-C Unavailable [phone] Srinivas Stern PA-C Unavailable [phone] Encounter Details Date Type Department Care Team (Late st Contact Info) Description 03/23/[address] 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 Gastroenterology Clinic [address] [address] Alexis Torres MD 420 [place] [address] Srinivas Stern PA-C 909 [place], [place] 490875 06/05/2025 3:30 PM CDT Virtual Visit [facility] MTM 909 [facility] [address] 2nd [place] [phone] Kayode Ivey MD 516 [place] [address] Bandar Casas, [facility] 420 [facility] 812 [place], [place] [address] documented as of this encounter Visit Diagnoses Not on filedocumented in this encounter Additional Health Concerns Infection Onset Date Last Indicated Resolved Time MRSA-Contact Isolation Comment: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, chest, and elbow 02/17/2016 02/17/2016 Rule Out C-difficile 10/04/2023 10/05/2023 024 7:28 PM NUMERICAL CONTROL PROGRAMMER C-difficile 10/05/2023 10/05/2023 11/04/2023 11:3 9 PM NUMERICAL CONTROL PROGRAMMER Rule Out C-difficile 09/03/2024 09/04/2024 025 12:45 PM NUMERICAL CONTROL PROGRAMMER Assessment Noted Time PHQ-9 Depression Total Score: 9 03/02/20 16 7:16 AM CDT documented as of this encounter Care Teams Mash Filter Operator Relationship Specialty Start Date End Date Jairo Vasquez MD PCP - General Family Medicine - Sports Medicine 12/29/15 Kylee Dailey MD [address] [place] [address] [address] [place] [address] Internal Medicine 04/01/17 Kayode Ivey MD [address] [place] [address] Gastroenterology 04/01/17 Nicolasa Perez APRN MARKETING CO OP [address] [place] [address] [id number] [place], [place] 819155 Nurse Practitioner Nurse Practitioner 04/28/17 Loyda Dickey RN Nurse Coordinator Neurology 05/26/17 02/26/19 Srinivas Stern PA-C [address] [place] [address] [phone] Physician Pharmacy Customer Care Specialist Physician Pharmacy Customer Care Specialist 10/02/18 Srinivas Stern PA-C [address] [place] [address] [phone] Assigned Heart and Vascular Provider 11/19/20 06/27/21 Violet Ta [facility] [address] [place] [phone] Pharmacist Pharmacist 12/29/20 02/08/21 Sue Mckeon [facility] [address] [place] [address] [phone] Pharmacist Pharmacist Manager Client 02/09/21 06/29/22 Karen Trinh MD [address] [place] [address] [phone] Assigned Infectious Disease Provider 02/08/21 07/30/22 Violet Ta [facility] [address] [place] [address] [phone] Assigned MTM Pharmacist 02/27/22 05/21/22 Violet Ta [facility] [address] [place] [address] [address] [place] [address] Assigned MTM Pharmacist 06/02/22 07/09/22 Srinivas Stern PA-C 909 [place] [address] Assigned Gastroenterology Provider 07/17/22 Bandar Casas RPH [address] [address] Pharmacist Pharmacist 08/18/23 Bandar Casas RPH [address] [place] [address] Assigned MTM Pharmacist 08/27/23 Ayana Zhang PA-C [address] [place] [address] Physician Pharmacy Customer Care Specialist Rheumatology 04/16/24 Srinivas Stern PA-C [address] [place] [address] Home Infusion Following Provider Gastroenterology 07/11/24 10/05/24 documented as of this encounter
--- OUTSIDE RECORDS SUMMARY | 2025-01-15 17:27 | XMS_ITS | Encounter Summary ---
Author Organization [facility] Address [address] [place] [address] Care Team Providers Care Coagulating Bath Operator Name Role Phone Jairo Vasquez MD Primary Care Provider [phone] Kylee Dailey MD Unavailable + Kayode Ivey MD Unavailable [phone] Nicolasa Perez APRN TOP TILE DECORATOR Unavaila ble Loyda Dickey RN Unavailable [phone] Srinivas Stern PA-C Unavailable [phone] Srinivas Stern PA-C Unavailable +[phone] Violet Ta [facility] Unavailable [phone] Sue Mckeon [facility] Unavailable [phone] Karen Trinh MD Unavailable +[phone] Violet Ta [facility] Unavailable [phone] Violet Ta [facility] Unavailable [phone] Srinivas Stern PA-C Unavailable +[phone] Bandar Casas [facility] Unavailable [phone] Bandar Casas [facility] Unavailable [phone] Ayana Zhang PA-C Unavailable [phone] Srinivas Stern PA-C Unavailable Encounter Details Date Type Department Care Team (Late st Contact Info) Description 03/16/2016 MyC Medical Advice [facility] [address] [place] [address] Kayode Ivey MD 6 [place] [address] Social History Tobacco Use Types Packs/Day Years Used Date Smoking Tobacco: Never Alcohol Use Standard Drinks/Week Comments No 0 (1 standard drink = 0.6 oz pur e alcohol) not currently Sex and Gender Information Value Date Recorded Sex Assigned at Not on file 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 Sex Male 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 PRESENTATION SPECIALIST Gender Identity Not on file Sexual Orientation Not on file 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 Gastroenterology Clinic [address] [address] Alexis Torres MD 420 [place] [address] Srinivas Stern PA-C 909 [place], [place] [address] 06/05/2025 3:30 PM CDT Virtual Visit Viola MADERA MTM 909 [facility] [address] 2nd [place] [phone] Kayode Ivey MD 516 [place] [address] Bandar Casas, [facility] 420 [facility] 812 [place], [place] 227875 documented as of this encounter Visit Diagnoses Not on filedocumented in this encounter Additional Health Concerns Infection Onset Date Last Indicated Resolved Time MRSA-Contact Isolation Comment:MRSA hx per [facility] right wrist, chest, and elbow 02/17/2016 02/17/2016 Rule Out C-difficile 10/04/2023 10/05/2023 024 7:28 PM RETAIL PRESENTATION SPECIALIST C-difficile 10/05/2023 10/05/2023 11/04/2023 11:3 9 PM RETAIL PRESENTATION SPECIALIST Rule Out C-difficile 09/03/2024 09/04/2024 025 12:45 PM RETAIL PRESENTATION SPECIALIST Assessment Noted Time PHQ-9 Depression Total Score: 9 03/02/20 16 7:16 AM CDT documented as of this encounter Care Teams Coagulating Bath Operator Relationship Specialty Start Date End Date Jairo Vasquez MD PCP - General Family Medicine - Sports Medicine 12/29/15 Kylee Dailey MD [address] [place] [address] 2[address] [place] [address] Internal Medicine 04/01/17 Kayode Ivey MD [address] [place] [address] Gastroenterology 04/01/17 Nicolasa Perez APRN TOP TILE DECORATOR [address] [place] [address] [id number] [place], [place] 165[address] Nurse Practitioner Nurse Practitioner 04/28/17 Loyda Dickey RN Nurse Coordinator Neurology 05/26/17 02/26/19 Srinivas Stern PA-C [address] [place] [address] [phone] Physician Short Haul Driver Physician Short Haul Driver 10/02/18 Srinivas Stern PA-C [address] [place] [address] [phone] Assigned Heart and Vascular Provider 11/19/20 06/27/21 Violet Ta [facility] [address] [place] [address] Pharmacist Pharmacist 12/29/20 02/08/21 Sue Mckeon [facility] [address] [place] [address] 264105 Pharmacist Pharmacist Um Rn 02/09/21 06/29/22 Karen Trinh MD [address] [place] [address] [phone] Assigned Infectious Disease Provider 02/08/21 07/30/22 Violet Ta [facility] [address] [place] [address] [phone] Assigned MTM Pharmacist 02/27/22 05/21/22 Violet Ta [facility] [address] [place] [address] [address] [place] [address] Assigned MTM Pharmacist 06/02/22 07/09/22 Srinivas Stern PA-C 909 [place] [address] Assigned Gastroenterology Provider 07/17/22 Bandar Casas RPH [address] [address] Pharmacist Pharmacist 08/18/23 Bandar Casas RPH [address] [place] [address] Assigned MTM Pharmacist 08/27/23 Ayana Zhang PA-C [address] [place] [address] Physician Short Haul Driver Rheumatology 04/16/24 Srinivas Stern PA-C [address] [place] [address] Home Infusion Following Provider Gastroenterology 07/11/24 10/05/24 documented as of this encounter
--- OUTSIDE RECORDS SUMMARY | 2025-01-15 17:27 | XMS_ITS | Encounter Summary ---
Author Organization [place] Address [address] [place] [address] Care Team Providers Care Ocean Freight Forwarder Name Role Phone Jairo Vasquez MD Primary Care Provider [phone] Kylee Dailey MD Unavailable + Kayode Ivey MD Unavailable [phone] Nicolasa Perez APRN GRANTS DIRECTOR Unavaila ble Srinivas Stern-C Unavailable [phone] Srinivas Stern-C Unavailable Bandar Casas [facility] Unavailable Bandar Casas [facility] Unavailable [phone] Ayana Zhang-C Unavailable Reason for Referral * Diagnostic Imaging Ultrasound (Routine) - Pending Review Specialty Diagnoses / Procedures Referred By Controberto carlos t Referred To Contact Radiology. 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 Gender Identity Not on file Sexual Orientation Not on file 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 Plan of Treatment Upcoming Encounters Date Type Department Care Team (Latest Contact Info) Description 02/13/2025 3:20 PM CDT Appointment [facility] Imaging [address] [facility] [address] [place] [address] Kayode Ivey MD 6 [place], [place] 5[address] 03/07/2025 3:00 PM CDT Ancillary Procedure [facility] [address] [facility] [address] [place] [address] Srinivas Stern PA-C [address] [place] [address] 04/24/2025 2:40 PM CDT Virtual Visit [facility] Gastroenterology [address] [phone] Alexis Torres MD 420 [place] [address] Srinivas Stern PA-C 909 [place], [place] [address] 06/05/2025 3:30 PM CDT Virtual Visit [facility] 909 [facility] 2nd [place] [phone] Kayode Ivey MD 6 [place], [place] [address] Bandar Casas, [facility] 420 [facility] 812 [place], [place] [address] Scheduled Orders Name Type Priority Associated Diagnoses [...] documented as of this encounter Care Teams Ocean Freight Forwarder Relationship Specialty Start Date End Date Jairo Vasquez MD PCP - General Family Medicine - Sports Medicine 12/29/15 Kylee Dailey MD [address] [place] [address] 2[address] [place] [address] Internal Medicine 04/01/17 Kayode Ivey MD [address] [place] [address] 500105 Gastroenterology 04/01/17 Nicolasa Perez APRN CNP 9[address] [facility] [id number] [place], [place] [address] Nurse Practitioner Nurse Practitioner 04/28/17 Srinivas Stern PA-C 909 [place], [place] 313705 Physician Aircraft Electrical Systems Specialist Physician Aircraft Electrical Systems Specialist 10/02/18 Srinivas Stern PA-C 909 [place], [place] 829575 Assigned Gastroenterology Provider 07/17/22 Bandar Casas RPH 420 [facility] 812 [place], [place] [phone] Pharmacist Pharmacist 08/18/23 Bandar Casas RPH 420 [facility] 812 [place], [place] 7[address] Assigned MTM Pharmacist 08/27/23 Ayana Zhang PA-C 5200 [place] [address] Physician Aircraft Electrical Systems Specialist Rheumatology 04/16/24 documented as of this encounter
--- OUTSIDE RECORDS SUMMARY | 2025-01-15 17:27 | XMS_ITS | Encounter Summary ---
Author Organization [place] Address [facility] [place] [address] Care Team Providers Care E Learning Designer Name Role Phone Jairo Vasquez MD Primary Care Provider [phone] Kylee Dailey MD Unavailable + Kayode Ivey MD Unavailable [phone] Nicolasa Perez APRN MUSIC TYPOGRAPHER Unavaila ble Srinivas Stern-C Unavailable Srinivas Stern-C Unavailable [phone] Bandar Casas [facility] Unavailable [phone] Bandar Casas [facility] Unavailable [phone] Ayana Zhang-C Unavailable Reason for Visit * Auth/Cert Specialty Diagnoses / Procedures Referred By Pérez fish Referred To Contact Surgery Diagnoses Ulcerative pancolitis without complication (H) Ulcerative pancolitis without complication (H) [K51.00] Procedures VT COLONOSCOPY W/WO BRUSH/WASH [place] COLOREC CANC SCRN,SCOPY NOT HI RISK [place] [address] [place] [address] Phone: tel: Referral ID Status Reason Start Date Expiration Date Visits Re quested Visits Authorized [id number] 1 1 Encounter Details Date Type Department Care Team (Late st Contact Info) Description 01/14/2025 1:05 PM CDT - 01/14/2025 11:59 PM CDT Hospital Encounter [facility] [address] [place] [address] [place] [address] [facility] [place] [id number] Discharge Disposition: Home or Self Care Social [...] on file Legal Sex Male 2:58 AM [employer] Gender Identity Not on file Sexual Orientation [...] PRE-SEDATION H&P FOR OUTPATIENT PROCEDURES Igor Flores [id number] 1975 Procedure: colonoscopy Pre-procedure diagnosis: UC Past [...] AND BIOPSY; Surgeon: Kayode Ivey MD; Location: [facility] OR COLONOSCOPY N/A 06/07/2023 Procedure: COLONOSCOPY, WITH BIOPSY; Surgeon: Igor Galeas MD; Location: [facility] OR ORTHOPEDIC SURGERY knee arthoscopy, high school, [...] mL 3 mL Intracatheter Q8H [facility] Yuan Evans MD sodium chloride (PF) 0.9% [...] PM CDT Appointment [facility] [address] [facility] [address] [place] [phone] Kayode Ivey MD 6 [place], [place] [address] 03/07/2025 3:00 PM CDT Ancillary Procedure [address] [place] [address] Srinivas Stern PA-C [address] [place] [address] [phone] 04/24/2025 2:40 PM CDT Virtual Visit [facility] [address] 4th [place] [address] Alexis Torres MD 420 [place], [place] 134[address] Srinivas Stern PA-C [address] [place] [address] 444315 06/05/2025 3:30 PM CDT Virtual Visit [facility] GI MTM 909 [facility] [address] 2nd [place] [address] Kayode Ivey MD 6 [place] [address] Bandar Casas, [facility] 420 [facility] 812 [place], [place] [address] Pending Results Name Type Priority Associated Diagnoses [...] * COLONOSCOPY (01/14/2025 1:48 PM CDT) COLONOSCOPY [facility] Endoscopy [facility] Patient Name: Igor Flores Procedure Date: 01/14/2025 1:48 PM Date of : 1975 Admit Type: Outpatient Age: 49 Gender: Male Note Status: Finalized Attending MD: YUAN EVANS MD, Instrument Name: [id number] Procedure: Colonoscopy Indications: Disease activity assessment of [...] bowel preparation was evaluated using the BBPS (Taylor Bowel Preparation Scale) with scores of: Right [...] POCT F inal Result Performing Organization Address [facility]/ZIP Co de Phone Number [facility] Clinics and Surgery [address] [id number] documented in this encounter Visit Diagnoses Not on filedocumented in this encounter Additional Health Concerns Infection Onset Date Last Indicated Resolved Time MRSA-Contact Isolation Comment:MRSA hx per [facility] right wrist, chest, and elbow 02/17/2016 02/17/2016 Assessment Noted Time PHQ-9 Depression Total Score: 9 03/02/20 16 7:16 AM CDT documented as of this encounter Care Teams E Learning Designer Relationship Specialty Start Date End Date Jairo Vasquez MD PCP - General Family Medicine - Sports Medicine 12/29/15 Kylee Dailey MD [facility] [place], [place] [address] Internal Medicine 04/01/17 Kayode Ivey MD 6 [place], [place] 2286[address] Gastroenterology 04/01/17 Nicolasa Perez APRN MUSIC TYPOGRAPHER [address] [place] [address] [id number] [place], [place] 5833[address] Nurse Practitioner Nurse Practitioner 04/28/17 Srinivas Stern PA-C [address] [place] [address] [phone] Physician Traffic Assistant Physician Traffic Assistant 10/02/18 Srinivas Stern PA-C [address] [place] [address] 110325 Assigned Gastroenterology Provider 07/17/22 Bandar Casas RPH [address] 640715 Pharmacist Pharmacist 08/18/23 Bandar Casas RPH [address] [id number] Assigned MTM Pharmacist 08/27/23 Ayana Zhang PA-C 5200 [place] [address] Physician Traffic Assistant Rheumatology 04/16/24 documented as of this encounter
--- OUTSIDE RECORDS SUMMARY | 2025-01-15 17:27 | XMS_ITS | Encounter Summary ---
Author Organization [place] Address [address] [place] [address] Care Team Providers Care Rail Splitter Name Role Phone Jairo Vasquez MD Primary Care Provider [phone] Kylee Dailey MD Unavailable + Kayode Ivey MD Unavailable [phone] Nicolasa Perez APRN VICE PRESIDENT OF SOFTWARE DEVELOPMENT Unavaila ble Srinivas Stern PA-C Unavailable Sue Mckeon [facility] Unavailable Karen Trinh MD Unavailable [phone] Violet Ta [facility] Unavailable [phone] Violet Ta [facility] Unavailable Srinivas Stern PA-C Unavailable [phone] Bandar Casas [facility] Unavailable Bandar Casas [facility] Unavailable [phone] Ayana Zhang PA-C Unavailable Srinivas Stern PA-C Unavailable [phone] Encounter Details Date Type Department Care Team (Late st Contact Info) Description 01/22/2022 [facility] [address] [place] [address] Blanca Menezes, RN Social History Tobacco Use Types Packs/Day Years Used Date Smoking Tobacco: Never Smokeless Tobacco: Never Alcohol Use Standard Drinks/Week Comments Yes 13 (1 standard drink = 0.6 oz pu re alcohol) MONTHLY PHQ-2 Answer Date Recorded PHQ-2 Score 0 01/19/2022 Sex and Gender Information Value Date Recorded Sex Assigned at Not on file 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 Gender Identity Not on file Sexual Orientation Not on file 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 Plan of Treatment Upcoming Encounters Date Type Department Care Team (Latest Contact Info) Description 02/13/2025 3:20 PM CDT Appointment [facility] [address] [facility] [address] [place] [address] Kayode Ivey MD 516 [place], [place] [address] 03/07/2025 3:00 PM CDT Ancillary Procedure [address] [place] [address] Srinivas Stern PA-C [address] [place] [address] [phone] 04/24/2025 2:40 PM CDT Virtual Visit [facility] Gastroenterology Clinic [address] [place] [address] Alexis Torres MD 420 [place], [place] [phone] Srinivas Stern PA-C [address] [place] [address] 955425 06/05/2025 3:30 PM CDT Virtual Visit [facility] GI [address] 2nd [place] [phone] Kayode Ivey MD 6 [place], [place] 4[address] Augusto Bandar, [facility] 420 [facility] 812 [place], [place] [address] documented as of this encounter Visit Diagnoses Not on filedocumented in this encounter Additional Health Concerns Infection Onset Date Last Indicated Resolved Time MRSA-Contact Isolation Comment:MRSA hx per [facility] right wrist, chest, and elbow 02/17/2016 02/17/2016 Rule Out C-difficile 10/04/2023 10/05/2023 024 7:28 PM SCIENTIST ENGINEER C-difficile 10/05/2023 10/05/2023 11/04/2023 11:3 9 PM SCIENTIST ENGINEER Rule Out C-difficile 09/03/2024 09/04/2024 025 12:45 PM SCIENTIST ENGINEER Assessment Noted Time PHQ-9 Depression Total Score: 9 03/02/20 16 7:16 AM CDT documented as of this encounter Care Teams Rail Splitter Relationship Specialty Start Date End Date Jairo Vasquez MD PCP - General Family Medicine - Sports Medicine 12/29/15 Kylee Dailey MD [address] [place], [place] [address]B 2A [place] [address] Internal Medicine 04/01/17 Kayode Ivey MD [address] [place] [address] [phone] Gastroenterology 04/01/17 Nicolasa Perez, INFORMATION TECHNOLOGY PROFESSOR VICE PRESIDENT OF SOFTWARE DEVELOPMENT [address] [place] [address] [id number] [place], [place] [address] Nurse Practitioner Nurse Practitioner 04/28/17 Srinivas Stern PA-C [address] [place] [address] Physician Meat Clerk Physician Meat Clerk 10/02/18 Sue Mckeon [facility] [address] [place] [address] Pharmacist Pharmacist Stenciler 02/09/21 06/29/22 Karen Trinh MD [address] [place] [address] Assigned Infectious Disease Provider 02/08/21 07/30/22 Violet Ta [facility] [address] [place] [address] Assigned MTM Pharmacist 02/27/22 05/21/22 Violet Ta [facility] [address] [place] [address] Assigned MTM Pharmacist 06/02/22 07/09/22 Srinivas Stern PA-C [address] [place] [address] Assigned Gastroenterology Provider 07/17/22 Bandar Casas [facility] [address] [phone] Pharmacist Pharmacist 08/18/23 Bandar Casas [facility] [address] [address] Assigned MTM Pharmacist 08/27/23 Ayana Zhang PA-C 5200 [place] [address] Physician Meat Clerk Rheumatology 04/16/24 Srinivas Stern PA-C 9 [place] [address] Home Infusion Following Provider Gastroenterology 07/11/24 10/05/24 documented as of this encounter
--- OUTSIDE RECORDS SUMMARY | 2025-01-15 17:27 | XMS_ITS | Encounter Summary ---
Author Organization [place] Address [address] [place] [address] Care Team Providers Care Dog Bather Name Role Phone Jairo Vasquez MD Primary Care Provider [phone] Kylee Dailey MD Unavailable + Kayode Ivey MD Unavailable [phone] Nicolasa Perez APRN PARTS ROOM ASSISTANT Unavaila ble Loyda Dickey RN Unavailable [phone] Srinivas Stern PA-C Unavailable [phone] Srinivas Stern PA-C Unavailable +[phone] Violet Ta [facility] Unavailable [phone] Sue Mckeon [facility] Unavailable [phone] Karen Trinh MD Unavailable +[phone] Violet Ta [facility] Unavailable [phone] Violet Ta [facility] Unavailable [phone] Srinivas Stern PA-C Unavailable +[phone] Bandar Casas [facility] Unavailable [phone] Bandar Casas [facility] Unavailable Ayana Zhang PA-C Unavailable [phone] Srinivas Stern PA-C Unavailable [phone] Encounter Details Date Type Department Care Team (Late st Contact Info) Description 03/16/2016 MyC Medical Advice [facility] Gastroenterology and IBD Clinic [address] [place] [address] Kayode Ivey MD 6 [place] [address] Social History Tobacco Use Types Packs/Day Years Used Date Smoking Tobacco: Never Alcohol Use Standard Drinks/Week Comments No 0 (1 standard drink = 0.6 oz pur e alcohol) not currently Sex and Gender Information Value Date Recorded Sex Assigned at Not on file 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 Gender Identity Not on file Sexual Orientation Not on file 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 Plan of Treatment Upcoming Encounters Date Type Department Care Team (Latest Contact Info) Description 02/13/2025 3:20 PM CDT Appointment [facility] Imaging [address] [facility] [address] [place] [address] Kayode Ivey MD 6 [place] [address] 03/07/2025 3:00 PM CDT Ancillary Procedure [address] [place] [address] Srinivas Stern PA-C [address] [place] [address] [phone] 04/24/2025 2:40 PM CDT Virtual Visit [facility] Gastroenterology Clinic [address] [address] Alexis Torres MD 420 [place] [address] Srinivas Stern PA-C 909 [place], [place] [address] 06/05/2025 3:30 PM CDT Virtual Visit [facility] MTM 909 [facility] [address] 2nd [place] [phone] Kayode Ivey MD 516 [place] [address] Bandar Casas, [facility] 420 [facility] 812 [place], [place] [address] documented as of this encounter Visit Diagnoses Not on filedocumented in this encounter Additional Health Concerns Infection Onset Date Last Indicated Resolved Time MRSA-Contact Isolation Comment:MRSA hx per [facility] right wrist, chest, and elbow 02/17/2016 02/17/2016 Rule Out C-difficile 10/04/2023 10/05/2023 024 7:28 PM RUMPER C-difficile 10/05/2023 10/05/2023 11/04/2023 11:3 9 PM RUMPER Rule Out C-difficile 09/03/2024 09/04/2024 025 12:45 PM RUMPER Assessment Noted Time PHQ-9 Depression Total Score: 9 03/02/20 16 7:16 AM CDT documented as of this encounter Care Teams Dog Bather Relationship Specialty Start Date End Date Jairo Vasquez MD PCP - General Family Medicine - Sports Medicine 12/29/15 Kylee Dailey MD [address] [place] [address] 2[address] [place] [address] Internal Medicine 04/01/17 Kayode Ivey MD [address] [place] [address] Gastroenterology 04/01/17 Nicolasa Perez APRN PARTS ROOM ASSISTANT [address] [place] [address] [id number] [place], [place] 9513[address] Nurse Practitioner Nurse Practitioner 04/28/17 Loyda Dickey RN Nurse Coordinator Neurology 05/26/17 02/26/19 Srinivas Stern PA-C [address] [place] [address] [id number] Physician Transportation Associate Physician Transportation Associate 10/02/18 Srinivas Stern PA-C [address] [place] [address] [phone] Assigned Heart and Vascular Provider 11/19/20 06/27/21 Violet Ta [facility] [address] [place] [address] Pharmacist Pharmacist 12/29/20 02/08/21 Sue Mckeon [facility] [address] [place] [address] [phone] Pharmacist Pharmacist Futures Trader 02/09/21 06/29/22 Karen Trinh MD [address] [place] [address] [phone] Assigned Infectious Disease Provider 02/08/21 07/30/22 Violet Ta [facility] [address] [place] [address] [phone] Assigned MTM Pharmacist 02/27/22 05/21/22 Violet Ta [facility] [address] [place] [address] [address] [place] [address] Assigned MTM Pharmacist 06/02/22 07/09/22 Srinivas Stern PA-C 909 [place] [address] Assigned Gastroenterology Provider 07/17/22 Bandar Casas RPH [address] [address] Pharmacist Pharmacist 08/18/23 Bandar Casas RPH [address] [place] [address] Assigned MTM Pharmacist 08/27/23 Ayana Zhang PA-C [address] [place] [address] Physician Transportation Associate Rheumatology 04/16/24 Srinivas Stern PA-C [address] [place] [address] Home Infusion Following Provider Gastroenterology 07/11/24 10/05/24 documented as of this encounter
--- OUTSIDE RECORDS SUMMARY | 2025-01-15 17:27 | XMS_ITS | Encounter Summary ---
Author Organization [place] Address [address] [place] [address] Care Team Providers Care Configuration Technician Name Role Phone Jairo Vasquez MD Primary Care Provider Kylee Dailey MD Unavailable + Kayode Ivey MD Unavailable [phone] Nicolasa Perez APRN [facility] Unavaila ble Srinivas Stern PA-C Unavailable Srinivas Stern-C Unavailable Bandar Casas [facility] Unavailable [phone] Bandar Casas [facility] Unavailable Ayana Zhang PA-C Unavailable [phone] Reason for Visit * Reason Comments Med Change Request Encounter Details Date Type Department Care Team ([facility] st Contact Info) Description 12/30/2024 [facility] 909 [facility] 2nd [place] [address] Kayode Ivey MD [address] [place] [address] Med Change Request Social History Tobacco [...] on file 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 See MYC 12/24/2024. Request denied to pharmacy. Kennedy Casas, PharmD, BCPS [place] Pharmacist [facility] Gastroenterology documented in this encounter Plan of Treatment Upcoming Encounters Date Type Department Care Team (Latest Contact Info) Description 02/13/2025 3:20 PM CDT Appointment [facility] Imaging [address] [facility] [address] [place] [address] Kayode Ivey MD 516 [place] [address] 03/07/2025 3:00 PM CDT Ancillary Procedure [address] [place] [address] Srinivas Stern PA-C [address] [place] [address] 04/24/2025 2:40 PM CDT Virtual Visit [facility] Gastroenterology Clinic [address] [place] [address] Alexis Torres MD 420 [place] [address] Srinivas Stern PA-C 909 [place], [place] 347[address] 06/05/2025 3:30 PM CDT Virtual Visit [facility] MTM 909 [facility] [address] 2nd [place] [phone] Kayode Ivey MD 516 [place], [place] 466125 Bandar Casas, [facility] 420 [facility] 812 [place], [place] [phone] documented as of this encounter Visit Diagnoses Diagnosis Ulcerative colitis with rectal bleeding, unspecified location (H) documented in this encounter Additional Health Concerns Infection Onset Date Last Indicated Resolved Time MRSA-Contact Isolation Comment:MRSA hx per [facility] right wrist, chest, and elbow 02/17/2016 02/17/2016 Assessment Noted Time PHQ-9 Depression Total Score: 9 03/02/20 16 7:16 AM CDT documented as of this encounter Care Teams Configuration Technician Relationship Specialty Start Date End Date Jairo Vasquez MD PCP - General Family Medicine - Sports Medicine 12/29/15 Kylee Dailey MD [address] [place] [address] [address] [place], [place] 4609[address] Internal Medicine 04/01/17 Kayode Ivey MD [address] [place] [address] 499415 Gastroenterology 04/01/17 Nicolasa Perez APRN [employer] [address] [place] [address] [id number] [place], [place] 744135 Nurse Practitioner Nurse Practitioner 04/28/17 Srinivas Stern PA-C 909 [place], [place] 486975 Physician Security Rep Physician Security Rep 10/02/18 Srinivas Stern PA-C 909 [place], [place] 367965 Assigned Gastroenterology Provider 07/17/22 Bandar Casas RPH [address] [address] Pharmacist Pharmacist 08/18/23 Bandar Casas RPH [address] [address] Assigned MTM Pharmacist 08/27/23 Ayana Zhang PA-C 5200 [place] [address] Physician Security Rep Rheumatology 04/16/24 documented as of this encounter
--- OUTSIDE RECORDS SUMMARY | 2025-01-15 17:27 | XMS_ITS | Encounter Summary ---
Author Organization [place] Address [address] [place] [address] Care Team Providers Care Cable Rigger Name Role Phone Jairo Vasquez MD Primary Care Provider [phone] Kylee Dailey MD Unavailable + Kayode Ivey MD Unavailable [phone] Nicolasa Perez APRN GLASS LINED TANK REPAIRER Unavaila ble Srinivas SternC Unavailable [phone] PitSrinivas mcintosh PA-C Unavailable [phone] Sue Mckeon [facility] Unavailable [phone] Karen Trinh MD Unavailable [phone] Violet Ta [facility] Unavailable Violet Ta [facility] Unavailable [phone] PitSrinivas mcintosh PA-C Unavailable [phone] Bandar Casas [facility] Unavailable Bandar Casas [facility] Unavailable Ayana Zhang PA-C Unavailable PitSrinivas mcintosh PA-C Unavailable [phone] Encounter Details Date Type Department Care Team (Late st Contact Info) Description 06/12/2021 [facility] [place] [facility] [address] [phone] Blanca Menezes, RN Social History Tobacco Use Types Packs/Day Years Used Date Smoking Tobacco: Never Smokeless Tobacco: Never Alcohol Use Standard Drinks/Week Comments Yes 13 (1 standard drink = 0.6 oz pu re alcohol) MONTHLY PHQ-2 Answer Date Recorded PHQ-2 Score 1 01/28/2021 Sex and Gender Information Value Date Recorded Sex Assigned at Not on file 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 Gastro[facility]ology Clinic [address] [phone] Alexis Torres MD 420 [place], [place] [phone] Srinivas Stern PA-C 909 [place], [place] [phone] 06/05/2025 3:30 PM CDT Virtual Visit Viola MADERA [place] 909 [facility] 2nd [place] [phone] Kayode Ivey MD 516 [place] [address] Bandar Casas, [facility] 420 [facility] 812 [place] [address] documented as of this encounter Visit Diagnoses Not on filedocumented in this encounter Additional Health Concerns Infection Onset Date Last Indicated Resolved Time MRSA-Contact Isolation Comment: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, chest, and elbow 02/17/2016 02/17/2016 Rule Out C-difficile 10/04/2023 10/05/2023 024 7:28 PM LICENSED NUCLEAR OPERATOR C-difficile 10/05/2023 10/05/2023 11/04/2023 11:3 9 PM LICENSED NUCLEAR OPERATOR Rule Out C-difficile 09/03/2024 09/04/2024 025 12:45 PM LICENSED NUCLEAR OPERATOR Assessment Noted Time PHQ-9 Depression Total Score: 9 03/02/20 16 7:16 AM CDT documented as of this encounter Care Teams Cable Rigger Relationship Specialty Start Date End Date Jairo Vasquez MD PCP - General Family Medicine - Sports Medicine 12/29/15 Kylee Dailey MD [address] [place] [address] 783585 Internal Medicine 04/01/17 Kayode Ivey MD [address] [place] [address] Gastroenterology 04/01/17 Nicolasa Perez APRN CNP 9 [facility] [id number] [place] [address] Nurse Practitioner Nurse Practitioner 04/28/17 Srinivas Stern PA-C [address] [place] [address]89 Physician Risk Consulting Treasury Director Physician Risk Consulting Treasury Director 10/02/18 Srinivas Stern PA-C [address] [place] [address]50 Assigned Heart and Vascular Provider 11/19/20 06/27/21 Sue Mckeon [facility] [address] [place] [address]189 Pharmacist Pharmacist Human Services Manager 02/09/21 06/29/22 Karen Trinh MD [address] [place] [address] 32585 Assigned Infectious Disease Provider 02/08/21 07/30/22 Violet Ta [facility] [address] [place] [address] Assigned MTM Pharmacist 02/27/22 05/21/22 Violet Ta [facility] [address] [place] [address] Assigned MTM Pharmacist 06/02/22 07/09/22 Srinivas Stern PA-C 909 [place], [place] 534235 Assigned Gastroenterology Provider 07/17/22 Bandar Casas RPH [address] [phone] Pharmacist Pharmacist 08/18/23 Bandar Casas RPH [address] 555965 Assigned MTM Pharmacist 08/27/23 Ayana Zhang PA-C 5200 [place] [address] Physician Risk Consulting Treasury Director Rheumatology 04/16/24 Srinivas Stern PA-C 909 [place], [place] 277115 Home Infusion Following Provider Gastroenterology 07/11/24 10/05/24 documented as of this encounter
--- OUTSIDE RECORDS SUMMARY | 2025-01-15 17:27 | XMS_ITS | Encounter Summary ---
Author Organization [place] Address [address] [place] [address]. [place] [address] Care Team Providers Care Mutual Fund Manager Name Role Phone Jairo Vasquez MD Primary Care Provider Kylee Dailey MD Unavailable + Kayode Ivey MD Unavailable Nicolasa Perez APRN UPHOLSTERY INSTRUCTOR Unavaila ble Srinivas Stern PA-C Unavailable Srinivas Stern-C Unavailable Bandar Casas [facility] Unavailable Bandar Casas [facility] Unavailable [phone] Ayana Zhang PA-C Unavailable Encounter Details Date Type Department Care Team (Late st Contact Info) Description 01/03/2025 [facility] Advice [facility] 909 [facility] [address] 2nd [place] [address] Bandar Casas, 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 Plan of Treatment Upcoming Encounters Date Type Department Care Team (Latest Contact Info) Description 02/13/2025 3:20 PM CDT Appointment [facility] [address] [facility] [address] [place] [phone] Kayode Ivey MD [address] [place] [address] 03/07/2025 3:00 PM CDT Ancillary Procedure [address] [place] [address] Srinivas Stern PA-C [address] [place] [address] [phone] 04/24/2025 2:40 PM CDT Virtual Visit [facility] Gastroenterology Clinic [address] [phone] Alexis Torres MD 420 [place], [place] 423675 Srinivas Stern PA-C [address] [place] [address] 816055 06/05/2025 3:30 PM CDT Virtual Visit [facility] GI [address] [phone] Kayode Ivey MD [address] [place] [address] 344275 Bandar Casas, [facility] 420 [facility] 812 [place] [address] documented as of this encounter Visit Diagnoses Not on filedocumented in this encounter Additional Health Concerns Infection Onset Date Last Indicated Resolved Time MRSA-Contact Isolation Comment:MRSA hx per [facility] right wrist, chest, and elbow 02/17/2016 02/17/2016 Assessment Noted Time PHQ-9 Depression Total Score: 9 03/02/20 16 7:16 AM CDT documented as of this encounter Care Teams Mutual Fund Manager Relationship Specialty Start Date End Date Jairo Vasquez MD PCP - General Family Medicine - Sports Medicine 12/29/15 Kylee Dailey MD 6 [facility] [place], [place] 592325 Internal Medicine 04/01/17 Kayode Ivey MD [address] [place] [address] 857445 Gastroenterology 04/01/17 Nicolasa Perez APRN UPHOLSTERY INSTRUCTOR [address] [place] [address] [id number] [place], [place] 586635 Nurse Practitioner Nurse Practitioner 04/28/17 Srinivas Stern PA-C [address] [place] [address] 623765 Physician Medical Administrative Technician Physician Medical Administrative Technician 10/02/18 Srinivas Stern PA-C [address] [place] [address] [id number] Assigned Gastroenterology Provider 07/17/22 Bandar Casas RPH [address] [place] 965872 [place] 360755 Pharmacist Pharmacist 08/18/23 Bandar Casas RPH [address] 965872 [place], [place] 546655 Assigned MTM Pharmacist 08/27/23 Ayana Zhang PA-C 5200 [place] [address] Physician Medical Administrative Technician Rheumatology 04/16/24 documented as of this encounter
--- OUTSIDE RECORDS SUMMARY | 2025-01-15 17:27 | XMS_ITS | Encounter Summary ---
Author Organization [place] Address [address] [place] [address] Care Team Providers Care Parking Lot Attendant And Cashier Name Role Phone Jairo Vasquez MD Primary Care Provider Kylee Dailey MD Unavailable + Kayode Ivey MD Unavailable [phone] Nicolasa Perez APRN MACHINE I CUTTER Unavaila ble Srinivas Stern-C Unavailable [phone] Srinivas Stern-C Unavailable Bandar Casas [facility] Unavailable [phone] Bandar Casas [facility] Unavailable Ayana Zhang-C Unavailable [phone] Reason for Visit * Reason Onset Date Comments Prior Auth - Medication 12/26/2024 Budesoni de foam Encounter Details Date Type Department Care Team (Late st Contact Info) Description 12/26/2024 Telephone [facility] G[facility]enterology [facility] [place] 909 [facility] 4th [place] [address] Kayode Ivey MD [address] [place] [address] Prior Auth - Medication (Budesonide foam) [...] on file 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 PRIOR AUTHORIZATION DENIED Medication: BUDESONIDE 2 MG/ACT RE FOAM Insurance Company: [employer] Phone- [phone] Fax- [phone] Denial Date: 01/03/2025 Denial Reason(s): Appeal Information: [...] BUDESONIDE 2 MG/ACT RE FOAM Insurance Company: [employer] Phone- [phone] Fax- [phone] Pharmacy Filling the Rx: Filling Pharmacy Phone: Filling Pharmacy Fax: Start Date: 12/26/2024 [id number] documented in this encounter Plan of Treatment Upcoming Encounters Date Type Department Care Team (Latest Contact Info) Description 02/13/2025 3:20 PM CDT Appointment [facility] [address] [facility] [address] [place] [address] Kayode Ivey MD [address] [place] [address] 051295 03/07/2025 3:00 PM CDT Ancillary Procedure [facility] [address] [place] [address] [place] [address] Srinivas Stern PA-C [address] [place] [address] [id number] 04/24/2025 2:40 PM CDT Virtual Visit [facility] Gastroenterology Clinic [address] 4th [place] [phone] Alexis Torres MD 420 [place] [address] Srinivas Stern PA-C [address] [place] [address] 06/05/2025 3:30 PM CDT Virtual Visit [facility] [place] [address] 2[address] [place] [address] Kayode Ivey MD 516 [place], [place] 672315 Bandar Casas RPH 420 [facility] 812 [place] [address] documented as of this encounter Visit Diagnoses Not on filedocumented in this encounter Additional Health Concerns Infection Onset Date Last Indicated Resolved Time MRSA-Contact Isolation Comment:MRSA hx per [facility] right wrist, chest, and elbow 02/17/2016 02/17/2016 Assessment Noted Time PHQ-9 Depression Total Score: 9 03/02/20 16 7:16 AM CDT documented as of this encounter Care Teams Parking Lot Attendant And Cashier Relationship Specialty Start Date End Date Jairo Vasquez MD PCP - General Family Medicine - Sports Medicine 12/29/15 Kylee Dailey MD [address] [place] [address] [address] [place] [address] Internal Medicine 04/01/17 Kayode Ivey MD 6 [place] [address] Gastroenterology 04/01/17 Nicolasa Perez APRN MACHINE I CUTTER [address] [place] [address] [place]1983[place] [address] Nurse Practitioner Nurse Practitioner 04/28/17 Srinivas Stern PA-C 9 [place], [place] 174175 Physician Furnace Door Tender Physician Furnace Door Tender 10/02/18 Srinivas Stern PA-C 909 [place], [place] 775265 Assigned Gastroenterology Provider 07/17/22 Bandar Casas RPH [address] [place] 630982 [place], [place] 836465 Pharmacist Pharmacist 08/18/23 Bandar Casas RPH [address] 738705 Assigned MTM Pharmacist 08/27/23 Ayana Zhang PA-C [address] [place] [address] Physician Furnace Door Tender Rheumatology 04/16/24 documented as of this encounter
--- OUTSIDE RECORDS SUMMARY | 2025-01-15 17:27 | XMS_ITS | Encounter Summary ---
Author Organization [place] Address [address] [place] [address] Care Team Providers Care Tax Compliance Representative Name Role Phone Jairo Vasquez MD Primary Care Provider [phone] Kylee Dailey MD Unavailable + Kayode Ivey MD Unavailable [phone] Nicolasa Perez APRN BIOSTATISTICS PROFESSOR Unavaila ble Srinivas Stern PA-C Unavailable [phone] Srinivas Stern PA-C Unavailable [phone] Violet Ta [facility] Unavailable [phone] Sue Mckeon [facility] Unavailable [phone] Karen Trinh MD Unavailable [phone] Violet Ta [facility] Unavailable [phone] Violet Ta [facility] Unavailable [phone] Srinivas Stern PA-C Unavailable [phone] Bandar Casas [facility] Unavailable [phone] Bandar Casas [facility] Unavailable [phone] Ayana Zhang PA-C Unavailable [phone] Srinivas Stern PA-C Unavailable [phone] Encounter Details Date Type Department Care Team (Late st Contact Info) Description 10/22/2019 [facility] Medical Advice [facility] Gastroenterology and IBD Clinic [address] [place] [address] Kayode Ivey MD 6 [place], [place] 844675 Social History Tobacco Use Types Packs/Day Years Used Date Smoking Tobacco: Never Smokeless Tobacco: Never Alcohol Use Standard Drinks/Week Comments Yes 13 (1 standard drink = 0.6 oz pu re alcohol) MONTHLY PHQ-2 Answer Date Recorded PHQ-2 Score 2 08/20/2019 Sex and Gender Information Value Date Recorded Sex Assigned at Not on file 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 Imaging [address] [facility] [address] [place] [address] Kayode Ivey MD 6 [place], [place] [phone] 03/07/2025 3:00 PM CDT Ancillary Procedure [address] [place] [address] Srinivas Stern PA-C [address] [place] [address] [id number] 04/24/2025 2:40 PM CDT Virtual Visit [facility] Gastroenterology Clinic [address] [phone] Alexis Torres MD 420 [place] [address] Srinivas Stern PA-C 909 [place], [place] 603545 06/05/2025 3:30 PM CDT Virtual Visit Viola MADERA MTM 909 [facility] SE 2nd [place] [phone] Kayode Ivey MD 516 [place] [address] Bandar Casas, [facility] 420 [facility] 812 [place], [place] 868565 documented as of this encounter Visit Diagnoses Not on filedocumented in this encounter Additional Health Concerns Infection Onset Date Last Indicated Resolved Time MRSA-Contact Isolation Comment:MRSA hx per [facility] right wrist, chest, and elbow 02/17/2016 02/17/2016 Rule Out C-difficile 10/04/2023 10/05/2023 024 7:28 PM WIRELESS SALES CONSULTANT C-difficile 10/05/2023 10/05/2023 11/04/2023 11:3 9 PM WIRELESS SALES CONSULTANT Rule Out C-difficile 09/03/2024 09/04/2024 025 12:45 PM WIRELESS SALES CONSULTANT Assessment Noted Time PHQ-9 Depression Total Score: 9 03/02/20 16 7:16 AM CDT documented as of this encounter Care Teams Tax Compliance Representative Relationship Specialty Start Date End Date Jairo Vasquez MD PCP - General Family Medicine - Sports Medicine 12/29/15 Kylee Dailey MD [address] [place] [address] 2A [place] [address] Internal Medicine 04/01/17 Kayode Ivey MD [address] [place] [address] Gastroenterology 04/01/17 Nicolasa Perez APRN BIOSTATISTICS PROFESSOR [address] [place] [address] [id number] [place] [address] Nurse Practitioner Nurse Practitioner 04/28/17 Srinivas Stern PA-C [address] [place] [address] Physician Staff Radiologist Physician Staff Radiologist 10/02/18 Srinivas Stern PA-C [address] [place] [address]87 Assigned Heart and Vascular Provider 11/19/20 06/27/21 Violet Ta [facility] [address] [place] [address]686 Pharmacist Pharmacist 12/29/20 02/08/21 Sue Mckeon [facility] [address] [place] [address] Pharmacist Pharmacist Criminal Defense Attorney 02/09/21 06/29/22 Karen Trinh MD [address] [place] [address] 33962 Assigned Infectious Disease Provider 02/08/21 07/30/22 Violet Ta [facility] [address] [place] [address] [address] [place] [address] Assigned MTM Pharmacist 02/27/22 05/21/22 Violet Ta [facility] [address] [place] [address] Assigned MTM Pharmacist 06/02/22 07/09/22 Srinivas Stern PA-C 909 [place] [address] Assigned Gastroenterology Provider 07/17/22 Bandar Casas RP [address] 135[address] Pharmacist Pharmacist 08/18/23 Bandar Casas [facility] [address] [address] Assigned MTM Pharmacist 08/27/23 Ayana Zhang PA-C 5200 [place] [address] Physician Staff Radiologist Rheumatology 04/16/24 Srinivas Stern PA-C 909 [place] [address] Home Infusion Following Provider Gastroenterology 07/11/24 10/05/24 documented as of this encounter
--- OUTSIDE RECORDS SUMMARY | 2025-01-15 17:27 | XMS_ITS | Encounter Summary ---
Author Organization [place] Address [address] [place] [address] Care Team Providers Care Superintendent Distribution Name Role Phone Jairo Vasquez MD Primary Care Provider [phone] Kylee Dailey MD Unavailable + Kayode Ivey MD Unavailable [phone] Nicolasa Perez APRN PROTOTYPE MACHINIST Unavaila ble Srinivas Stern PA-C Unavailable [phone] Srinivas Stern-C Unavailable [phone] Bandar Casas [facility] Unavailable [phone] Bandar Casas [facility] Unavailable Ayana Zhang PA-C Unavailable Encounter Details Date Type Department Care Team (Late st Contact Info) Description 12/28/2024 [facility] [place] Advice [facility] Gastroenterology Clinic [place] [address] 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 Plan of Treatment Upcoming Encounters Date Type Department Care Team (Latest Contact Info) Description 02/13/2025 3:20 PM CDT Appointment [facility] Imaging [address] [facility] [address] [place] [address] Kayode Ivey MD [address] [place] [address] 278445 03/07/2025 3:00 PM CDT Ancillary Procedure [address] [place] [address] Srinivas Stern PA-C [address] [place] [address] 376235 04/24/2025 2:40 PM CDT Virtual Visit [facility] Gastroenterology Clinic [address]th [place] [phone] Alexis Torres MD 420 [place], [place] 743575 Srinivas Stern PA-C [address] [place] [address] 329575 06/05/2025 3:30 PM CDT Virtual Visit [facility] GI [facility] [address] [place] [address] 2nd [place] [phone] Kayode Ivey MD [address] [place] [address] 170605 Bandar Casas [facility] 420 [facility] 812 [place], [place] 820465 documented as of this encounter Visit Diagnoses Not on filedocumented in this encounter Additional Health Concerns Infection Onset Date Last Indicated Resolved Time MRSA-Contact Isolation Comment:MRSA hx per [facility] right wrist, chest, and elbow 02/17/2016 02/17/2016 Assessment Noted Time PHQ-9 Depression Total Score: 9 03/02/20 16 7:16 AM CDT documented as of this encounter Care Teams Superintendent Distribution Relationship Specialty Start Date End Date Jairo Vasquez MD PCP - General Family Medicine - Sports Medicine 12/29/15 Kylee Dailey MD [address] [place] [address] 2A [place], [place] 949855 Internal Medicine 04/01/17 Kayode Ivey MD [address] [place] [address] 872465 Gastroenterology 04/01/17 Nicolasa Perez APRN PROTOTYPE MACHINIST [address] [place], [place] [id number] [place], [place] 6[address] Nurse Practitioner Nurse Practitioner 04/28/17 Srinivas Stern PA-C [address] [place] [address] Physician Tank Tester Physician Tank Tester 10/02/18 Srinivas Stern PA-C [address] [place] [address] Assigned Gastroenterology Provider 07/17/22 Bandar Casas RPH [address] [place] [address] 812 [place] [address] Pharmacist Pharmacist 08/18/23 Bandar Casas RPH [address] [place] [address] Assigned MTM Pharmacist 08/27/23 Ayana Zhang PA-C [address] [place] [address] Physician Tank Tester Rheumatology 04/16/24 documented as of this encounter
--- OUTSIDE RECORDS SUMMARY | 2025-01-15 17:27 | XMS_ITS | Encounter Summary ---
Author Organization [place] Address [address] [place] [address]. [place] [address] Care Team Providers Care Golf Tournament Consultant Name Role Phone Jairo Vasquez MD Primary Care Provider Kylee Dailey MD Unavailable + Kayode Ivey MD Unavailable [phone] Nicolasa Perez APRN FRONT DESK COORDINATOR Unavaila ble Srinivas Stern-C Unavailable [phone] Srinivas Stern-C Unavailable [phone] Bandar Casas [facility] Unavailable [phone] Bandar Casas [facility] Unavailable Ayana Zhang-C Unavailable Reason for Visit * Reason Onset Date Comments Outreach 01/10/2025 Encounter Details Date Type Department Care Team (Late st Contact Info) Description 01/10/2025 Telephone [facility] [address] 4th [place] [address] None Outreach Social History Tobacco [...] on file 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 [address] [facility] [address] [place] [address] Kayode Ivey MD 6 [place], [place] 7[address]65 03/07/2025 3:00 PM CDT Ancillary Procedure [facility] [address] [facility] [address] [place] [address] Srinivas Stern PA-C [address] [place] [address] 597555 04/24/2025 2:40 PM CDT Virtual Visit [facility] [address] 4th [place] [phone] Alexis Torres MD 420 [place], [place] 506245 Srinivas Stern PA-C [address] [place] [address] 484555 06/05/2025 3:30 PM CDT Virtual Visit [facility] GI [address] 2nd [place] [phone] Kayode Ivey MD 516 [place], [place] 659285 Bandar Casas, [facility] 420 [facility] 812 [place] [address] documented as of this encounter Visit Diagnoses Not on filedocumented in this encounter Additional Health Concerns Infection Onset Date Last Indicated Resolved Time MRSA-Contact Isolation Comment:MRSA hx per [facility] right wrist, chest, and elbow 02/17/2016 02/17/2016 Assessment Noted Time PHQ-9 Depression Total Score: 9 03/02/20 16 7:16 AM CDT documented as of this encounter Care Teams Golf Tournament Consultant Relationship Specialty Start Date End Date Jairo Vasquez MD PCP - General Family Medicine - Sports Medicine 12/29/15 Kylee Dailey MD [address] [place] [address] [address] [place] [address] Internal Medicine 04/01/17 Kayode Ivey MD [address] [place] [address] Gastroenterology 04/01/17 Nicolasa Perez APRN FRONT DESK COORDINATOR [address] [place], [place] [address] [place], [place] [address] Nurse Practitioner Nurse Practitioner 04/28/17 Srinivas Stern PA-C [address] [place] [address] 555045 Physician Digital Design Engineer Physician Digital Design Engineer 10/02/18 Srinivas Stern PA-C 909 [place] [address] Assigned Gastroenterology Provider 07/17/22 Bandar Casas RPH 420 [facility] 812 [place], [place] 296465 Pharmacist Pharmacist 08/18/23 Bandar Casas RPH [address] [place] 469502 [place], [place] 546955 Assigned MTM Pharmacist 08/27/23 Ayana Zhang PA-C 5200 [place] [address] Physician Digital Design Engineer Rheumatology 04/16/24 documented as of this encounter
--- OUTSIDE RECORDS SUMMARY | 2025-01-15 17:27 | XMS_ITS | Encounter Summary ---
Author Organization [facility] Address [address] [place] [address]. [place] [address] Care Team Providers Care Water Fitness Instructor Name Role Phone Jairo Vasquez MD Primary Care Provider Kylee Dailey MD Unavailable + Derik Ivey MD Unavailable [phone] Nicolasa Perez APRN MINES INSPECTOR Unavaila ble Srinivas Stern-C Unavailable Srinivas Stern-C Unavailable [phone] Bandar Casas [facility] Unavailable Bandar Casas [facility] Unavailable Ayana Zhang-C Unavailable [phone] Reason for Visit * Reason Onset Date Comments Procedure 12/28/2024 Colonoscopy Encounter Details Date Type Department Care Team (Late st Contact Info) Description 12/28/2024 Telephone [facility] [address] 4th [place] [address] None Procedure (Colonoscopy) Social History [...] on file 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 NO, No manager review required. Have you been diagnosed and are being treated for severe PTSD or severe anxiety? NO, No manager review required. Are you taking any prescription medications for pain 3 or more times per week? NO, No manager review required. Do you have a history of [...] No BMI > 40? No Preferred Pharmacy: [facility] [id number] [place] [address] [address] Final Scheduling Details Procedure scheduled Colonoscopy Surgeon: [...] 3:20 PM CDT Appointment [facility] [address] [facility] [address] [place] [phone] Derik Ivey MD 6 [place], [place] 57[address] 03/07/2025 3:00 PM CDT Ancillary Procedure [facility] [address] [facility] [address] [place] [address] Srinivas Stern PA-C [address] [place] [address] 04/24/2025 2:40 PM CDT Virtual Visit [facility] [address]th [place] [address] Alexis Torres MD 420 [place], [place] 524295 Srinivas Stern PA-C [address] [place] [address] 06/05/2025 3:30 PM CDT Virtual Visit [facility] [address]nd [place] [address] Derik Ivey MD [address] [place] [address] Bandar Casas RPH 420 [facility] 812 [place] [address] documented as of this encounter Visit Diagnoses Not on filedocumented in this encounter Additional Health Concerns Infection Onset Date Last Indicated Resolved Time MRSA-Contact Isolation Comment:MRSA hx per [facility] right wrist, chest, and elbow 02/17/2016 02/17/2016 Assessment Noted Time PHQ-9 Depression Total Score: 9 03/02/20 16 7:16 AM CDT documented as of this encounter Care Teams Water Fitness Instructor Relationship Specialty Start Date End Date Jairo Vasquez MD PCP - General Family Medicine - Sports Medicine 12/29/15 Kylee Dailey MD 6 [facility] 2A [place], [place] 072345 Internal Medicine 04/01/17 Derik Ivey MD [address] [place] [address] 137845 Gastroenterology 04/01/17 Nicolasa Perez APRN MINES INSPECTOR [address] [place], [place] [address] [place], [place] 23[address] Nurse Practitioner Nurse Practitioner 04/28/17 Srinivas Stern PA-C [address] [place] [address] 859665 Physician Baby Sitter Physician Baby Sitter 10/02/18 Srinivas Stern PA-C [address] [place] [address] 597055 Assigned Gastroenterology Provider 07/17/22 Bandar Casas [facility] [address] 845995 Pharmacist Pharmacist 08/18/23 Bandar Casas RP [address] 551345 Assigned MTM Pharmacist 08/27/23 Ayana Zhang PA-C 5200 [place] [address] Physician Baby Sitter Rheumatology 04/16/24 documented as of this encounter
--- OUTSIDE RECORDS SUMMARY | 2025-01-15 17:28 | XMS_ITS | Encounter Summary ---
Author Organization [facility] Address [address] [place] [address] Care Team Providers Care Automation And Controls Manager Name Role Phone Jairo Vasquez MD Primary Care Provider Kylee Dailey MD Unavailable + Kayode Ivey MD Unavailable [phone] Nicolasa Perez APRN [facility] Unavaila ble Srinivas Stern-C Unavailable [phone] Srinivas Stern-C Unavailable [phone] Bandar Casas [facility] Unavailable Bandar Casas [facility] Unavailable Ayana Zhang-C Unavailable Reason for Referral * Consultation (Priority: 1-2 Weeks) - Pending Review Specialty Diagnoses / Procedures Referred By Pérez t Referred To Contact Gastroenterology Diagnoses Ulcerative pancolitis without complication (H) Kayode Ivey MD [address] [place] [address] Phone: tel: fax: Referral ID Status Reason Start Date Expiration Date V isits Requested Visits Authorized [id number] Pending Review 12/26/2024 12/26/2025 1 1 Question Answer Service: Lower Endoscopy Lower Endoscopy Type: Colonoscopy Reason for Colonoscopy: Diagnostic Sedation Concerns: No medical conditions affecting sedation Sedation Type: Moderate/Conscious Sedation Preferred Location: [facility] Patient Scheduling Instructions: [facility] will call you to coordinate your care as prescribed by the provider. If you don t hear from a accounts receivable representative within 2 business days, please call . Additional Information: Please schedule with IBD provider - for disease reassessment Comments Please be aware that coverage of these services is subject to the terms and limitations of your health insurance plan. Call member services at your health plan with any benefit or coverage questions. [facility] will call you to coordinate your care as prescribed by the provider. If you don t hear from a accounts receivable representative within 2 business days, please call . 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 Gender Identity Not on file Sexual [...] PM CDT Appointment [facility] [address] [facility] [address] [place] [address] Kayode Ivey MD [address] [place] [address] [phone] 03/07/2025 3:00 PM CDT Ancillary Procedure [address] [place] [address] Srinivas Stern PA-C [address] [place] [address] [phone] 04/24/2025 2:40 PM CDT Virtual Visit [facility] [address] [place] [address] Alexis Torres MD 420 [place], [place] 323965 Srinivas Stern PA-C [address] [place] [address] 880585 06/05/2025 3:30 PM CDT Virtual Visit [facility] GI [facility] 9[address] [facility] 2nd [place] [address] Kayode Ivey MD [address] [place] [address] [phone] Bandar Casas [place] 420 [facility] 812 [place], [place] 210045 Scheduled Referrals Name Type Priority Associated Diagnoses Orde r Schedule Adult GI Ring Cutter Lathe Operator Referral - Procedure Only Referral Priority: 1-2 [...] documented as of this encounter Care Teams Automation And Controls Manager Relationship Specialty Start Date End Date Jairo Vasquez MD PCP - General Family Medicine - Sports Medicine 12/29/15 Kylee Dailey MD [address] [place] [address] 2A [place], [place] 982775 Internal Medicine 04/01/17 Kayode Ivey MD [address] [place] [address] 924315 Gastroenterology 04/01/17 Nicolasa Perez APRN MACHINE BRUSHER [address] [place] [address] [id number] [place], [place] 380495 Nurse Practitioner Nurse Practitioner 04/28/17 Srinivas Stern PA-C [address] [place] [address] 359735 Physician Assistant Women'S Soccer Coach Physician Assistant Women'S Soccer Coach 10/02/18 Srinivas Stern PA-C [address] [place] [address] Assigned Gastroenterology Provider 07/17/22 Bandar Casas RPH [address] [place] [address] 710792 [place], [place] [address] Pharmacist Pharmacist 08/18/23 Bandar Casas RPH [address] 0535[address] Assigned MTM Pharmacist 08/27/23 Ayana Zhang PA-C 5200 [place] [address] Physician Assistant Women'S Soccer Coach Rheumatology 04/16/24 documented as of this encounter
--- OUTSIDE RECORDS SUMMARY | 2025-01-15 17:28 | XMS_ITS | Encounter Summary ---
Author Organization [place] Address [address] [place] [address] Care Team Providers Care Sign Letterer Name Role Phone Jairo Vasquez MD Primary Care Provider [phone] Kylee Dailey MD Unavailable + Kayode Ivey MD Unavailable [phone] Nicolasa Perez APRN SLICE CUTTING MACHINE OPERATOR Unavaila ble Srinivas SternC Unavailable [phone] PitSrinivas mcintosh PA-C Unavailable [phone] Sue Mckeon [facility] Unavailable [phone] Karen Trinh MD Unavailable [phone] Violet Ta [facility] Unavailable [phone] Violet Ta [facility] Unavailable [phone] PitSrinivas mcintosh PA-C Unavailable [phone] Bandar Casas [facility] Unavailable [phone] Bandar Casas [facility] Unavailable Ayana Zhang PA-C Unavailable PitSrinivas mcintosh PA-C Unavailable [phone] Encounter Details Date Type Department Care Team (Late st Contact Info) Description 04/03/2021 [facility] [address] [phone] Kayode Ivey MD [address] [place] [address] 799715 Social History Tobacco Use Types Packs/Day Years Used Date Smoking Tobacco: Never Smokeless Tobacco: Never Alcohol Use Standard Drinks/Week Comments Yes 13 (1 standard drink = 0.6 oz pu re alcohol) MONTHLY PHQ-2 Answer Date Recorded PHQ-2 Score 1 01/28/2021 Sex and Gender Information Value Date Recorded Sex Assigned at Not on file 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 Gender Identity Not on file Sexual Orientation [...] Info) Description 02/13/2025 3:20 PM CDT Appointment [facility] [address] [facility] [address] [place] [address] Kayode Ivey MD [address] [place] [address] 177765 03/07/2025 3:00 PM CDT Ancillary Procedure [facility] [address] [facility] [address] [place] [address] Srinivas Stern PA-C [address] [place] [address] 443875 04/24/2025 2:40 PM CDT Virtual Visit [facility] Gastroenterology Clinic [address] [phone] Alexis Torres MD 420 [place], [place] 865915 Srinivas Stern PA-C 909 [place], [place] 373615 06/05/2025 3:30 PM CDT Virtual Visit [facility] 909 [facility] 2nd [place] [address] Kayode Ivey MD 516 [place], [place] 182175 Bandar Casas, [facility] 420 [facility] 812 [place], [place] 798055 documented as of this encounter Visit Diagnoses Not on filedocumented in this encounter Additional Health Concerns Infection Onset Date Last Indicated Resolved Time MRSA-Contact Isolation Comment:MRSA hx per [facility] right wrist, chest, and elbow 02/17/2016 02/17/2016 Rule Out C-difficile 10/04/2023 10/05/2023 024 7:28 PM COUNTER DISH CARRIER C-difficile 10/05/2023 10/05/2023 11/04/2023 11:3 9 PM COUNTER DISH CARRIER Rule Out C-difficile 09/03/2024 09/04/2024 025 12:45 PM COUNTER DISH CARRIER Assessment Noted Time PHQ-9 Depression Total Score: 9 03/02/20 16 7:16 AM CDT documented as of this encounter Care Teams Sign Letterer Relationship Specialty Start Date End Date Jairo Vasquez MD PCP - General Family Medicine - Sports Medicine 12/29/15 Kylee Dailey MD [address] [place], [place] [address]B 2A [place], [place] [address] Internal Medicine 04/01/17 Kayode Ivey MD 6 [place] [address] Gastroenterology 04/01/17 Nicolasa Perez APRN SLICE CUTTING MACHINE OPERATOR [address] [place] [address] [id number] [place] [address] Nurse Practitioner Nurse Practitioner 04/28/17 Srinivas Stern PA-C [address] [place] [address] 191825 Physician Cloth Drier Physician Cloth Drier 10/02/18 Srinivas Stern PA-C [address] [place] [address] [phone] Assigned Heart and Vascular Provider 11/19/20 06/27/21 Sue Mckeon [facility] [address] [place] [address] 920415 Pharmacist Pharmacist District Wildlife Manager 02/09/21 06/29/22 Karen Trinh MD [address] [place] [address] 887135 Assigned Infectious Disease Provider 02/08/21 07/30/22 [facility] [address] [place] [address] Assigned MTM Pharmacist 02/27/22 05/21/22 Violet Ta, [facility] [address] [place] [address] Assigned MTM Pharmacist 06/02/22 07/09/22 Srinivas Stern PA-C [address] [place] [address] 796645 Assigned Gastroenterology Provider 07/17/22 Bandar Casas RPH [address] [place] [address] Pharmacist Pharmacist 08/18/23 Bandar Casas RP [address] [address] Assigned MTM Pharmacist 08/27/23 Ayana Zhang PA-C [address] [place] [address] [phone] Physician Cloth Drier Rheumatology 04/16/24 Srinivas Stern PA-C [address] [place] [address] 756045 Home Infusion Following Provider Gastroenterology 07/11/24 10/05/24 documented as of this encounter
--- OUTSIDE RECORDS SUMMARY | 2025-01-15 17:28 | XMS_ITS | Encounter Summary ---
Author Organization [facility] Address [address] [place] [address]. [place] [address] Care Team Providers Care Linux Admin Engineer Name Role Phone Jairo Vasquez MD Primary Care Provider Kylee Dailey MD Unavailable + Kayode Ivey MD Unavailable [phone] Nicolasa Perez APRN SENIOR SOFTWARE ENGINEERING MANAGER Unavaila ble Srinivas Stern-C Unavailable [phone] Srinivas Stern-C Unavailable [phone] Bandar Casas [facility] Unavailable Bandar Casas [facility] Unavailable Ayana Zhang-C Unavailable [phone] Encounter Details Date Type Department Care Team (Late st Contact Info) Description 12/22/2024 Orders Only [facility] 9[address] [facility] 2nd [place] [address] Malgorzata Acosta Ulcerative colitis with [...] on file 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 Gender Identity Not on file Sexual Orientation Not on file 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 Gastroenterology Clinic [address]th [place] [address] Alexis Torres MD 420 [place], [place] 443405 Srinivas Stern PA-C [address] [place] [address] [phone] 06/05/2025 3:30 PM CDT Virtual Visit [facility] GI [facility] [address] [place] [address] 2nd [place] [address] Kayode Ivey MD [address] [place] [address] 405165 Bandar Casas RPH 420 [facility] 812 [place], [place] 3[address]85 documented as of this encounter Procedures Procedure [...] UM SPECIALTY CORE/PROT/ENDO UM Specialty Core/Prot/Endo [address] [facility] [address] [facility], Room 3-[address] documented in this encounter Visit Diagnoses [...] as of this encounter Care Teams Linux Admin Engineer Relationship Specialty Start Date End Date Jairo Vasquez MD PCP - General Family Medicine - Sports Medicine 12/29/15 Kylee Dailey MD 516 [facility] 2A [place] [address] Internal Medicine 04/01/17 Kayode Ivey MD 6 [place], [place] 229885 Gastroenterology 04/01/17 Nicolasa Perez APRN SENIOR SOFTWARE ENGINEERING MANAGER [address] [place] [address] [id number] [place], [place] 55[address]95 Nurse Practitioner Nurse Practitioner 04/28/17 Srinivas Stern PA-C [address] [place] [address] 022615 Physician Director Channel Physician Director Channel 10/02/18 Srinivas Stern PA-C [address] [place] [address] 980205 Assigned Gastroenterology Provider 07/17/22 Bandar Casas RPH [address] [place] 710162 [place] [address] Pharmacist Pharmacist 08/18/23 Bandar Casas RPH [address] [address] Assigned MTM Pharmacist 08/27/23 Ayana Zhang PA-C 5200 [place] [address] Physician Director Channel Rheumatology 04/16/24 documented as of this encounter
--- OUTSIDE RECORDS SUMMARY | 2025-01-15 17:28 | XMS_ITS | Encounter Summary ---
Author Organization [place] Address [address] [place] [address] 34925 Care Team Providers Care Director Perioperative Name Role Phone Jairo Vasquez MD Primary Care Provider [phone] Kylee Dailey MD Unavailable + Kayode Ivey MD Unavailable [phone] Nicolasa Perez APRN SENIOR PYTHON DEVELOPER Unavaila ble Srinivas Stern PA-C Unavailable Srinivas Stern-C Unavailable Bandar Casas [facility] Unavailable [phone] 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 Kennedy Casas, PharmD, BCPS [place] Pharmacist [facility] Gastroenterology documented in this encounter Plan of Treatment Upcoming Encounters Date Type Department Care Team (Latest Contact Info) Description 02/13/2025 3:20 PM CDT Appointment [facility] [address] [facility] [address] [place] [address] Kayode Ivey MD 516 [place] [address] 03/07/2025 3:00 PM CDT Ancillary Procedure [address] [place] [address] Srinivas Stern PA-C [address] [place] [address] 04/24/2025 2:40 PM CDT Virtual Visit [facility] Clinic [address] 4th [place] [address] Alexis Torres MD 420 [place] [address] Srinivas Stern PA-C 909 [place], [place] 602905 06/05/2025 3:30 PM CDT Virtual Visit Jose MADERA MTM 909 [facility] [address] 2nd [place] [phone] Kayode Ivey MD 516 [place], [place] 449455 Bandar Casas, [facility] 420 [facility] 812 [place], [place] 566765 documented as of this encounter Visit Diagnoses Diagnosis Ulcerative pancolitis without complication (H) documented in this encounter Additional Health Concerns Infection Onset Date Last Indicated Resolved Time MRSA-Contact Isolation Comment:MRSA hx per [facility] right wrist, chest, and elbow 02/17/2016 02/17/2016 Assessment Noted Time PHQ-9 Depression Total Score: 9 03/02/20 16 7:16 AM CDT documented as of this encounter Care Teams Director Perioperative Relationship Specialty Start Date End Date Jairo Vasquez MD PCP - General Family Medicine - Sports Medicine 12/29/15 Kylee Dailey MD [address] [place], [place] [address] 2A [place], [place] 120515 Internal Medicine 04/01/17 Kayode Ivey MD [address] [place] [address] 836645 Gastroenterology 04/01/17 Nicolasa Perez APRN SENIOR PYTHON DEVELOPER [address] [place] [address] [id number] [place], [place] 449375 Nurse Practitioner Nurse Practitioner 04/28/17 Srinivas Stern PA-C 909 [place], [place] 362465 Physician Radiation Control Health Physicist Physician Radiation Control Health Physicist 10/02/18 Srinivas Stern PA-C 909 [place], [place] 682545 Assigned Gastroenterology Provider 07/17/22 Bandar Casas RPH [address] 5577[address] Pharmacist Pharmacist 08/18/23 Bandar Casas Dameon [address] [place] [address] [id number] Assigned MTM Pharmacist 08/27/23 Ayana Zhang PA-C 5200 [place] [address] Physician Radiation Control Health Physicist Rheumatology 04/16/24 documented as of this encounter
--- OUTSIDE RECORDS SUMMARY | 2025-01-15 17:28 | XMS_ITS | Encounter Summary ---
Author Organization [place] Address [address] [place] [address] Care Team Providers Care Galvanometer Assembler Name Role Phone Jairo Vasquez MD Primary Care Provider [phone] Kylee Dailey MD Unavailable + Kayode Ivey MD Unavailable [phone] Nicolasa Perez APRN QUICK SKETCH ARTIST Unavaila ble Srinivas SternC Unavailable [phone] PitSrinivas mcintosh PA-C Unavailable [phone] Sue Mckeon [facility] Unavailable [phone] Karen Trinh MD Unavailable [phone] Violet Ta [facility] Unavailable Violet Ta [facility] Unavailable [phone] PitSrinivas mcintosh PA-C Unavailable [phone] Bandar Casas [facility] Unavailable [phone] Bandar Casas [facility] Unavailable Ayana Zhang PA-C Unavailable PitSrinivas mcintosh PA-C Unavailable [phone] Encounter Details Date Type Department Care Team (Late st Contact Info) Description 04/03/2021 [facility]ology Clinic [address] [phone] Kayode Ivey MD [address] [place] [address] [id number] Social History Tobacco Use Types Packs/Day Years Used Date Smoking Tobacco: Never Smokeless Tobacco: Never Alcohol Use Standard Drinks/Week Comments Yes 13 (1 standard drink = 0.6 oz pu re alcohol) MONTHLY PHQ-2 Answer Date Recorded PHQ-2 Score 1 01/28/2021 Sex and Gender Information Value Date Recorded Sex Assigned at Not on file 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 Gender Identity Not on file Sexual [...] Appointment [facility] [address] [facility] [address] [place] [address] Kayode Ivey MD [address] [place] [address] 288685 03/07/2025 3:00 PM CDT Ancillary Procedure [facility] [address] [facility] [address] [place] [address] Srinivas Stern PA-C [address] [place] [address] 013815 04/24/2025 2:40 PM CDT Virtual Visit [facility] Gastroenterology Clinic [address] [phone] Alexis Torres MD 420 [place], [place] 506305 Srinivas Stern PA-C 909 [place], [place] 082675 06/05/2025 3:[address] PM [address]T Virtual Visit [facility] 909 [facility] 2nd [place] [address] Kayode Ivey MD 516 [place], [place] 993325 Bandar Casas, [facility] 420 [facility] 812 [place], [place] 584095 documented as of this encounter Visit Diagnoses Not on filedocumented in this encounter Additional Health Concerns Infection Onset Date Last Indicated Resolved Time MRSA-Contact Isolation Comment:MRSA hx per [facility] right wrist, chest, and elbow 02/17/2016 02/17/2016 Rule Out C-difficile 10/04/2023 10/05/2023 024 7:28 PM PUBLIC IMPROVEMENT INSPECTOR C-difficile 10/05/2023 10/05/2023 11/04/2023 11:3 9 PM PUBLIC IMPROVEMENT INSPECTOR Rule Out C-difficile 09/03/2024 09/04/2024 025 12:45 PM PUBLIC IMPROVEMENT INSPECTOR Assessment Noted Time PHQ-9 Depression Total Score: 9 03/02/20 16 7:16 AM CDT documented as of this encounter Care Teams Galvanometer Assembler Relationship Specialty Start Date End Date Jairo Vasquez MD PCP - General Family Medicine - Sports Medicine 12/29/15 Kylee Dailey MD [address] [place], [place] 68[address]B 2A [place], [place] 980425 Internal Medicine 04/01/17 Kayode Ivey MD 6 [place] [address] Gastroenterology 04/01/17 Nicolasa Perez APRN QUICK SKETCH ARTIST [address] [place] [address] [id number] [place] [address] Nurse Practitioner Nurse Practitioner 04/28/17 Srinivas Stern PA-C [address] [place] [address] 650385 Physician Care Nurse Rn Physician Care Nurse Rn 10/02/18 Srinivas Stern PA-C [address] [place] [address] 400665 Assigned Heart and Vascular Provider 11/19/20 06/27/21 Sue Mckeon [facility] [address] [place] [address] 362925 Pharmacist Pharmacist Urologic Surgeon 02/09/21 06/29/22 Karen Trinh MD [address] [place] [address] 836435 Assigned Infectious Disease Provider 02/08/21 07/30/22 [facility] [address] [place] [address] Assigned MTM Pharmacist 02/27/22 05/21/22 Violet Ta, [facility] [address] [place] [address] Assigned MTM Pharmacist 06/02/22 07/09/22 Srinivas Stern PA-C [address] [place] [address] 696315 Assigned Gastroenterology Provider 07/17/22 Bandar Casas RPH [address] [place] [address] Pharmacist Pharmacist 08/18/23 Bandar Casas RP [address] [address] Assigned MTM Pharmacist 08/27/23 Ayana Zhang PA-C [address] [place] [address] [id number] Physician Care Nurse Rn Rheumatology 04/16/24 Srinivas Stern PA-C [address] [place] [address] 847435 Home Infusion Following Provider Gastroenterology 07/11/24 10/05/24 documented as of this encounter
--- OUTSIDE RECORDS SUMMARY | 2025-01-15 17:28 | XMS_ITS | Encounter Summary ---
Author Organization [place] Address [address] [place] [address]68 Care Team Providers Care Service Unit Operator Name Role Phone Jairo Vasquez MD Primary Care Provider [phone] Kylee Dailey MD Unavailable + Kayode Ivey MD Unavailable [phone] Nicolasa Perez APRN CODING ANALYST Unavaila ble Srinivsa Stern PA-C Unavailable [phone] PitSrinivas mcintosh PA-C Unavailable [phone] Sue Mckeon [facility] Unavailable [phone] Karen Trinh MD Unavailable [phone] Violet Ta [facility] Unavailable Violet Ta [facility] Unavailable [phone] PitSrinivas mcintosh PA-C Unavailable [phone] Bandar Casas [facility] Unavailable [phone] Bandar Casas [facility] Unavailable [phone] Ayana Zhang PA-C Unavailable PitSrinivas mcintosh PA-C Unavailable [phone] Encounter Details Date Type Department Care Team (Late st Contact Info) Description 03/26/2021 [facility] [address] [place] [address] 5th [place] [phone] Marium Burnett RN Social History Tobacco Use Types Packs/Day Years Used Date Smoking Tobacco: Never Smokeless Tobacco: Never Alcohol Use Standard Drinks/Week Comments Yes 13 (1 standard drink = 0.6 oz pu re alcohol) MONTHLY PHQ-2 Answer Date Recorded PHQ-2 Score 1 01/28/2021 Sex and Gender Information Value Date Recorded Sex Assigned at Not on file Legal Sex Male 2:58 AM TICKETING AGENT Gender Identity Not on file Sexual Orientation [...] Description 02/13/2025 3:20 PM CDT Appointment [facility] Imaging [address] [facility] [address] [place] [phone] Kayode Ivey MD 6 [place], [place] [phone] 03/07/2025 3:00 PM CDT Ancillary Procedure [address] [place] [address] Srinivas Stern PA-C [address] [place] [address] 316915 04/24/2025 2:40 PM CDT Virtual Visit [facility] Gastroenterology Clinic [address] [phone] Alexis Torres MD 420 [place], [place] 809105 Srinivas Stern PA-C 909 [place] [address] 06/05/2025 3:30 PM CDT Virtual Visit Viola MADERA MTM 909 [facility] 2nd [place] [phone] Kayode Ivey MD 516 [place], [place] 818225 Bandar Casas, [facility] 420 [facility] 812 [place], [place] 608575 documented as of this encounter Visit Diagnoses Not on filedocumented in this encounter Additional Health Concerns Infection Onset Date Last Indicated Resolved Time MRSA-Contact Isolation Comment:MRSA hx per [facility] right wrist, chest, and elbow 02/17/2016 02/17/2016 Rule Out C-difficile 10/04/2023 10/05/2023 024 7:28 PM TICKETING AGENT C-difficile 10/05/2023 10/05/2023 11/04/2023 11:3 9 PM TICKETING AGENT Rule Out C-difficile 09/03/2024 09/04/2024 025 12:45 PM TICKETING AGENT Assessment Noted Time PHQ-9 Depression Total Score: 9 03/02/20 16 7:16 AM CDT documented as of this encounter Care Teams Service Unit Operator Relationship Specialty Start Date End Date Jairo Vasquez MD PCP - General Family Medicine - Sports Medicine 12/29/15 Kylee Dailey MD [address] [place] [address] 2A [place], [place] 627835 Internal Medicine 04/01/17 Kayode Ivey MD [address] [place] [address] 669205 Gastroenterology 04/01/17 Nicolasa Perez APRN CODING ANALYST [address] [place] [address] [id number] [place] [address] Nurse Practitioner Nurse Practitioner 04/28/17 Srinivas Stern PA-C [address] [place] [address] Physician Computer Lab Assistant Physician Computer Lab Assistant 10/02/18 Srinivas Stern PA-C [address] [place] [address] Assigned Heart and Vascular Provider 11/19/20 06/27/21 Sue Mckeon [facility] [address] [place] [address] Pharmacist Pharmacist Ballistics Teacher 02/09/21 06/29/22 Karen Trinh MD [address] [place] [address] 19024 Assigned Infectious Disease Provider 02/08/21 07/30/22 Violet Ta [facility] [address] [place] [address] Assigned MTM Pharmacist 02/27/22 05/21/22 Violet Ta [facility] [address] [place] [address] Assigned MTM Pharmacist 06/02/22 07/09/22 Srinivas Stern PA-C 909 [place] [address] Assigned Gastroenterology Provider 07/17/22 Bandar Casas RPH [address] 506445 Pharmacist Pharmacist 08/18/23 Bandar Casas RPH [address] 907015 Assigned MTM Pharmacist 08/27/23 Ayana Zhang PA-C [facility] [place] [address] Physician Computer Lab Assistant Rheumatology 04/16/24 Srinivas Stern PA-C 909 [place] [address] Home Infusion Following Provider Gastroenterology 07/11/24 10/05/24 documented as of this encounter
--- OUTSIDE RECORDS SUMMARY | 2025-01-15 17:28 | XMS_ITS | Encounter Summary ---
Author Organization [place] Address [address] [place] [address]408 Care Team Providers Care Block Mason Name Role Phone Jairo Vasquez MD Primary Care Provider [phone] Kylee Dailey MD Unavailable + Kayode Ivey MD Unavailable [phone] Nicolasa Perez APRN INSULATION INSTALLER Unavaila ble Srinivas SternC Unavailable [phone] PitSrinivas mcintosh PA-C Unavailable [phone] Sue Mckeon [facility] Unavailable [phone] Karen Trinh MD Unavailable [phone] Violet Ta [facility] Unavailable Violet Ta [facility] Unavailable [phone] PitSrinivas mcintosh PA-C Unavailable [phone] Bandar Casas [facility] Unavailable Bandar Casas [facility] Unavailable Ayana Zhang PA-C Unavailable PitSrinivas mcintosh PA-C Unavailable [phone] Encounter Details Date Type Department Care Team (Late st Contact Info) Description 03/13/2021 [facility] Clinic [address] [phone] Kayode Ivey MD [address] [place] [address] [phone] Social History Tobacco Use Types Packs/Day Years Used Date Smoking Tobacco: Never Smokeless Tobacco: Never Alcohol Use Standard Drinks/Week Comments Yes 13 (1 standard drink = 0.6 oz pu re alcohol) MONTHLY PHQ-2 Answer Date Recorded PHQ-2 Score 1 01/28/2021 Sex and Gender Information Value Date Recorded Sex Assigned at Not on file Legal Sex Male 2:58 AM CHILD SUPPORT SPECIALIST Gender Identity Not on file Sexual Orientation Not on file 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 Plan of Treatment Upcoming Encounters Date Type Department Care Team (Latest Contact Info) Description 02/13/2025 3:20 PM CDT Appointment [facility] [address] [facility] [address] [place] [phone] Kayode Ivey MD [address] [place] [address] [id number] 03/07/2025 3:00 PM CDT Ancillary Procedure [address] [place] [address] Srinivas Stern PA-C [address] [place] [address] 006355 04/24/2025 2:40 PM CDT Virtual Visit [facility] Gastroenterology Clinic [address] [phone] Alexis Torres MD 420 [place], [place] 453305 Srinivas Stern PA-C [address] [place] [address] 06/05/2025 3:30 PM CDT Virtual Visit [facility] MTM 909 [facility] SE 2nd [place] [phone] Kayode Ivey MD 516 [place], [place] 490795 Bandar Casas, [facility] 420 [facility] 812 [place], [place] 962315 documented as of this encounter Visit Diagnoses Not on filedocumented in this encounter Additional Health Concerns Infection Onset Date Last Indicated Resolved Time MRSA-Contact Isolation Comment:MRSA hx per [facility] right wrist, chest, and elbow 02/17/2016 02/17/2016 Rule Out C-difficile 10/04/2023 10/05/2023 024 7:28 PM CHILD SUPPORT SPECIALIST C-difficile 10/05/2023 10/05/2023 11/04/2023 11:3 9 PM CHILD SUPPORT SPECIALIST Rule Out C-difficile 09/03/2024 09/04/2024 025 12:45 PM CHILD SUPPORT SPECIALIST Assessment Noted Time PHQ-9 Depression Total Score: 9 03/02/20 16 7:16 AM CDT documented as of this encounter Care Teams Block Mason Relationship Specialty Start Date End Date Jairo Vasquez MD PCP - General Family Medicine - Sports Medicine 12/29/15 Kylee Dailey MD [address] [place], [place] [address]B 2A [place], [place] 846785 Internal Medicine 04/01/17 Kayode Ivey MD [address] [place] [address] 106095 Gastroenterology 04/01/17 Nicolasa Perez APRN INSULATION INSTALLER 909 [facility] [id number] [place] [address] Nurse Practitioner Nurse Practitioner 04/28/17 Srinivas Stern PA-C [address] [place] [address] Physician Biology Laboratory Assistant Physician Biology Laboratory Assistant 10/02/18 Srinivas Stern PA-C [address] [place] [address] [phone] Assigned Heart and Vascular Provider 11/19/20 06/27/21 Sue Mckeon [facility] [address] [place] [address] Pharmacist Pharmacist Assembly Stock Supervisor 02/09/21 06/29/22 Karen Trinh MD [address] [place] [address]32 Assigned Infectious Disease Provider 02/08/21 07/30/22 [facility] [address] [place] [address] Assigned MTM Pharmacist 02/27/22 05/21/22 Violet Ta, [facility] [address] [place] [address] Assigned MTM Pharmacist 06/02/22 07/09/22 Srinivas Stern PA-C [address] [place] [address] 83668 Assigned Gastroenterology Provider 07/17/22 Bandar Casas RPH [address] [place] 691702 [place] [address] Pharmacist Pharmacist 08/18/23 Bandar Casas RPH 420 [place] 691702 [place] [address] Assigned MTM Pharmacist 08/27/23 Ayana Zhang PA-C 5200 [place] [address] Physician Biology Laboratory Assistant Rheumatology 04/16/24 Srinivas Stern PA-C [address] [place] [address] Home Infusion Following Provider Gastroenterology 07/11/24 10/05/24 documented as of this encounter
--- OUTSIDE RECORDS SUMMARY | 2025-01-15 17:28 | XMS_ITS | Encounter Summary ---
Author Organization [place] Address [address] [place] [address]. [place] [address] Care Team Providers Care Voucher Examiner Name Role Phone Jairo Vasquez MD Primary Care Provider [phone] Kylee Dailey MD Unavailable + Kayode Ivey MD Unavailable [phone] Nicolasa Perez APRN CONTROL AND RECOVERY COMBAT RESCUE Unavaila ble Srinivas Stern PA-C Unavailable Srinivas Stern-C Unavailable [phone] Bandar Casas [facility] Unavailable Bandar Casas [facility] Unavailable [phone] Ayana Zhang PA-C Unavailable Reason for Visit * Reason Onset Date Comments Pt. Information/instruction 12/28/2024 [facility]oscopy Encounter Details Date Type Department Care Team (Late st Contact Info) Description 12/28/2024 Telephone [facility] Gastroenterology Clinic [address] 4th [place] [address] Lilibeth Gamboa, RN Pt. 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 Designated cart driver policy reviewed and that site requests drivers to check in and stay on campus. Instructed to have someone stay 6 hours post procedure. *Disclaimer - please notify the RN GI staff with any cart driver issues/concerns. Medication review: Medications reviewed. Please see supporting documentation below. Holding recommendations discussed (if applicable). Prep for procedure: Procedure prep instructions reviewed. Any additional information needed: Patient stated that they did not have anything for prep ready when they went to the pharmacy today.It Sales Executive discussed the possibility that they had the [...] Zuly Feliz RN Endoscopy Procedure Pre Assessment [phone] option 3 * Telephone Encounter - Mary Lou Abdullahi LPN - 12/31/2024 8:48 AM CDT Attempted to contact patient in order to complete pre assessment questions. No answer. Left message to return call to [phone] option 3. Callback communication sent via [employer]. Mary Lou Abdullahi LPN * Telephone Encounter - Lilibeth Gamboa RN - 12/28/2024 4:46 PM CDT Pre visit planning completed. Procedure details: Patient scheduled for Colonoscopy on 01/14/25. Approximate arrival time: 1315. Procedure time 1400. *Ensure patient is aware that endoscopy team will be calling about 2 days prior to procedure date to confirm arrival time as this may change. Facility location: [facility]; [address] 2nd Floor, [place] [address]. Check in location: 2nd Floor at Surgery [...] recommendation: Standard Cindy. Bowel prep sent to [facility] [address] [place] [address]. Due to: diabetes Procedure information and instructions sent via [employer] Lilibeth Gamboa RN Endoscopy Procedure Pre Assessment [phone] option 3 documented in this encounter Plan of Treatment Upcoming Encounters Date Type Department Care Team (Latest Contact Info) Description 02/13/2025 3:20 PM CDT Appointment [facility] Imaging [address] [facility] [address] [place] [address] Kayode Ivey MD [address] [place] [address] 844545 03/07/2025 3:00 PM CDT Ancillary Procedure [facility] [address] [place] [address] Srinivas Stern PA-C [address] [place] [address] 450225 04/24/2025 2:40 PM CDT Virtual Visit [facility] Gastroenterology Clinic [address] 4th [place] [phone] Alexis Torres MD 420 [place] [address] Srinivas Stern PA-C [address] [place] [address] 06/05/2025 3:30 PM CDT Virtual Visit [facility] GI [address]nd [place] [address] Kayode Ivey MD 516 [place], [place] 278325 Bandar Casas RPH 420 [facility] 812 [place] [address] documented as of this encounter Visit Diagnoses Diagnosis Ulcerative pancolitis without complication (H)- Primary documented in this encounter Additional Health Concerns Infection Onset Date Last Indicated Resolved Time MRSA-Contact Isolation Comment:MRSA hx per [facility] right wrist, chest, and elbow 02/17/2016 02/17/2016 Assessment Noted Time PHQ-9 Depression Total Score: 9 03/02/20 16 7:16 AM CDT documented as of this encounter Care Teams Voucher Examiner Relationship Specialty Start Date End Date Jairo Vasquez MD PCP - General Family Medicine - Sports Medicine 12/29/15 Kylee Dailey MD [address] [place] [address] Internal Medicine 04/01/17 Kayode Ivey MD 6 [place] [address] Gastroenterology 04/01/17 Nicolasa Perez APRN CONTROL AND RECOVERY COMBAT RESCUE 909 [facility] [id number] [place], [place] 516[address] Nurse Practitioner Nurse Practitioner 04/28/17 Srinivas Stern PA-C 909 [place], [place] 528915 Physician Jewelry Salesperson Physician Jewelry Salesperson 10/02/18 Srinivas Stern PA-C 909 [place], [place] 053595 Assigned Gastroenterology Provider 07/17/22 Bandar Casas RPH 420 [place] [id number] [place], [place] 365155 Pharmacist Pharmacist 08/18/23 Bandar Casas RPH [address] 146985 Assigned MTM Pharmacist 08/27/23 Ayana Zhang PA-C 5200 [place] [address] Physician Jewelry Salesperson Rheumatology 04/16/24 documented as of this encounter
--- OUTSIDE RECORDS SUMMARY | 2025-01-15 17:28 | XMS_ITS | Encounter Summary ---
Author Organization [place] Address [address] [place] [address]. [place] [address] Care Team Providers Care Auto Driver Name Role Phone Jairo Vasquez MD Primary Care Provider Kylee Dailey MD Unavailable + Kayode Ivey MD Unavailable [phone] Nicolasa Perez APRN ACTIVITIES LEADER Unavaila ble Srinivas Stern PA-C Unavailable Srinivas Stern-C Unavailable Bandar Casas [facility] Unavailable Bandar Casas [facility] Unavailable Ayana Zhang-C Unavailable Encounter Details Date Type Department Care Team (Late st Contact Info) Description 12/12/2024 [facility] [place] [address] [facility] [address] 2nd [place] [address] Bandar Casas, [facility] [address] [place] [address] [facility] 812 [place] [address] Ulcerative colitis with rectal bleeding, [...] on file 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 Gender Identity Not on file Sexual [...] 3:20 PM CDT Appointment [facility] [address] [facility] [address] [place] [phone] Kayode Ivey MD 516 [place] [address] 03/07/2025 3:00 PM CDT Ancillary Procedure [address] [place] [address] Srinivas Stern PA-C [address] [place] [address] 04/24/2025 2:40 PM CDT Virtual Visit [facility] [address] 4th [place] [address] Alexis Torres MD 420 [place], [place] [phone] Srinivas Stern PA-C [address] [place] [address] 06/05/2025 3:30 PM CDT Virtual Visit [facility] [address]09 [facility] [address] 2nd [place] [address] Kayode Ivey MD 516 [facility] [place] [address] Bandar Casas, [facility] 420 [facility] 812 [place] [address] documented as of this encounter [...] UM SPECIALTY CORE/PROT/ENDO UM Specialty Core/Prot/Endo 500 [facility] [address] Building, Room [address] * Vedolizumab Level and Antibodies (12/15/2024 [...] Ed ited Result - Final [facility] [address] [place] [address], [facility] [phone] documented in this encounter Visit Diagnoses Diagnosis [...] as of this encounter Care Teams Auto Driver Relationship Specialty Start Date End Date Jairo Vasquez MD PCP - General Family Medicine - Sports Medicine 12/29/15 Kylee Dailey MD 6 [facility] [address] [place] [address] Internal Medicine 04/01/17 Kayode Ivey MD 6 [place] [address] Gastroenterology 04/01/17 Nicolasa Perez APRN ACTIVITIES LEADER [address] [place], [place] [address] [place] [address] Nurse Practitioner Nurse Practitioner 04/28/17 Srinivas Stern PA-C 909 [place] [address] Physician Tool Inspector Physician Tool Inspector 10/02/18 Srinivas Stern PA-C 909 [place] [address] Assigned Gastroenterology Provider 07/17/22 Bandar Casas RPH [address] [place] [address] Pharmacist Pharmacist 08/18/23 Bandar Casas RPH [address] [place] [address] [phone] Assigned MTM Pharmacist 08/27/23 Ayana Zhang PA-C 5200 [place] [address] Physician Tool Inspector Rheumatology 04/16/24 documented as of this encounter
--- OUTSIDE RECORDS SUMMARY | 2025-01-15 17:28 | XMS_ITS | Encounter Summary ---
Author Organization [facility] Address [address] [place] [address]. [place] [address] Care Team Providers Care Correctional Casework Specialist Name Role Phone Jairo Vasquez MD Primary Care Provider [phone] Kylee Dailey MD Unavailable + Kayode Ivey MD Unavailable [phone] Nicolasa Perez APRN CAR CARDER Unavaila ble Srinivas Stern PA-C Unavailable Srinivas Stern-C Unavailable [phone] Bandar Casas [facility] Unavailable [phone] Bandar Casas [facility] Unavailable [phone] Ayana Zhang PA-C Unavailable Encounter Details Date Type Department Care Team (Late st Contact Info) Description 12/05/2024 [facility] 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 Plan of Treatment Upcoming Encounters Date Type Department Care Team (Latest Contact Info) Description 02/13/2025 3:20 PM CDT Appointment [facility] [address] [facility] [address] [place] [address] Kayode Ivey MD [address] [place] [address] 03/07/2025 3:00 PM CDT Ancillary Procedure [address] [place] [address] Srinivas Stern PA-C [address] [place] [phone] 04/24/2025 2:40 PM CDT Virtual Visit [facility] [address] [phone] Alexis Torres MD 420 [place], [place] [address] Srinivas Stern PA-C [address] [place] [address] [phone] 06/05/2025 3:30 PM CDT Virtual Visit [facility] GI [address] [phone] Kayode Ivey MD [address] [place] [address] 639245 Bandar Casas, [facility] 420 [facility] 812 [place] [address] documented as of this encounter Visit Diagnoses Not on filedocumented in this encounter Additional Health Concerns Infection Onset Date Last Indicated Resolved Time MRSA-Contact Isolation Comment:MRSA hx per [facility] right wrist, chest, and elbow 02/17/2016 02/17/2016 Assessment Noted Time PHQ-9 Depression Total Score: 9 03/02/20 16 7:16 AM CDT documented as of this encounter Care Teams Correctional Casework Specialist Relationship Specialty Start Date End Date Jairo Vasquez MD PCP - General Family Medicine - Sports Medicine 12/29/15 Kylee Dailey MD 6 [facility] [place], [place] 69[address] Internal Medicine 04/01/17 Kayode Ivey MD [address] [place] [address] 314825 Gastroenterology 04/01/17 Nicolasa Perez APRN CAR CARDER [address] [place] [address] [id number] [place], [place] [address] Nurse Practitioner Nurse Practitioner 04/28/17 Srinivas Stern PA-C [address] [place] [address] 992325 Physician Gripper Machine Operator Physician Gripper Machine Operator 10/02/18 Srinivas Stern PA-C [address] [place] [address] [phone] Assigned Gastroenterology Provider 07/17/22 Bandar Casas RPH [address] 759962 [place], [place] [address] Pharmacist Pharmacist 08/18/23 Bandar Casas RPH [address] 759962 [place], [place] 899625 Assigned MTM Pharmacist 08/27/23 Ayana Zhnag PA-C 5200 [place] [address] Physician Gripper Machine Operator Rheumatology 04/16/24 documented as of this encounter
--- OUTSIDE RECORDS SUMMARY | 2025-01-15 17:28 | XMS_ITS | Encounter Summary ---
Author Organization [place] Address [address] [place] [address] Care Team Providers Care Marine Engineering Professor Name Role Phone Jairo Vasquez MD Primary Care Provider [phone] Kylee Dailey MD Unavailable + Kayode Ivey MD Unavailable [phone] Nicolasa Perez APRN GLASS BLOWING INSTRUCTOR Unavaila ble Srinivas Stern PA-C Unavailable [phone] Srinivas Stern PA-C Unavailable [phone] [facility] Unavailable Bandar Casas [facility] Unavailable Ayana Zhang PA-C Unavailable [phone] Reason for Referral * Diagnostic Imaging Dexa (Routine) - Pending Review Specialty Diagnoses / Procedures Referred By Pérez t Referred To Contact Radiology. Diagnoses Ulcerative colitis with rectal bleeding, unspecified location (H) Procedures DX Bone Density Srinivas Stern PA-C [address] [place] [address] Phone: tel: fax: Referral ID Status Reason Start Date Expiration Date V isits Requested Visits Authorized [id number] Pending Review 12/05/2024 12/05/2025 1 1 Reason for Visit * Reason Comments Medication Therapy Management * (Routine) - Pending Review Specialty Diagnoses / Procedures Referred By Pérez fish Referred To Contact Referral ID Status Reason Start Date Expiration Date V isits Requested Visits Authorized [id number] Pending Review 11/25/2024 11/25/2025 1 1 Encounter Details Date Type Department Care Team (Late st Contact Info) Description 12/05/2024 3:00 PM CDT Virtual Visit [facility] [address] 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 https://www.dietaryguidelines.gov/yskk-oiznzyd-ivmasfg I've placed an order for a DEXA scan to look at your bone density. To schedule the DEXA call the imaging schedulers at [phone]. For an kko-lr-dvhjrs estimate, call the Cost of Care estimate lineat [phone]. Follow-up: 06/05/2025 at 3:30 PM (telephone) It was great speaking with you today. I value your experience and would be very thankful for your time in providing feedback in our clinic survey. In the next few days, you may receive an email or text message from [employer] with a link to a survey related to your ???clinical pharmacist. To schedule another MTM appointment, please call the clinic directly or you may call the MTM scheduling line at [phone] or toll-free at . My Clinical Pharmacist's contact information: Please feel free to contact me with any questions or concerns you have. Bandar Casas, PharmCarolin, BCPS MTM Pharmacist [facility] Gastroenterology documented in this encounter Progress Notes * Bandar Casas, [facility] - 12/05/2024 3:00 PM CDT Images from [...] 500 mg tablet once or twice daily. https://www.dietaryguidelines.gov/txxg-vdkigov-ytbkjij I've placed an order for a DEXA scan to look at your bone density. To schedule the DEXA call the imaging schedulers at [phone]. For an yek-jb-psghbg estimate, call the Cost of Care estimate lineat [phone]. Follow-up: 06/05/2025 at 3:30 PM (telephone) SUBJECTIVE/OBJECTIVE: [...] screening: Annual visual exam of skin by shop teacher since patient is immunocompromised Depression Screening: PHQ-2 [...] summary of these recommendations was sent via [employer]. Bandar Casas, PharmD, BCPS [place] Pharmacist [facility] Gastroenterology Telemedicine Visit Details The patient's [...] 12/05/2024 3:00 PM CDT Current patient location: [address] [place] [phone] Is the patient currently in the state of [place]? YES Visit mode: TELEPHONE If the visit is dropped, the patient can be reconnected by:TELEPHONE VISIT: Phone number: Telephone Information: Will anyone else be joining the visit? NO (If patient encounters technical issues they should call [phone] :[phone]) Are changes needed to the allergy or [...] Info) Description 02/13/2025 3:20 PM CDT Appointment [facility] Imaging [address] [facility] [address] [place] [phone] Kayode Ivey MD [address] [place] [address] [phone] 03/07/2025 3:00 PM CDT Ancillary Procedure [address] [place] [address] Srinivas Stern PA-C [address] [place] [address] 04/24/2025 2:40 PM CDT Virtual Visit [facility] Clinic [address] 4th [place] [address] Alexis Torres MD 420 [place] [address] Srinivas Stern PA-C [address] [place] [address] [phone] 06/05/2025 3:30 PM CDT Virtual Visit [facility] GI [facility] 909 [facility] 2nd [place] [phone] Kayode Ivey MD [address] [place] [address] Bandar Casas RPH 420 [facility] 812 [place], [place] [address] Scheduled Orders Name Type Priority Associated Diagnoses [...] documented as of this encounter Care Teams Marine Engineering Professor Relationship Specialty Start Date End Date Jairo Vasquez MD PCP - General Family Medicine - Sports Medicine 12/29/15 Kylee Dailey MD [address] [place] [address] 2A [place], [place] 64[address] Internal Medicine 04/01/17 Kayode Ivey MD [address] [place] [address]335 Gastroenterology 04/01/17 Nicolasa Perez APRN GLASS BLOWING INSTRUCTOR [address] [place] [address] [id number] [place], [place] 9029[address] Nurse Practitioner Nurse Practitioner 04/28/17 Srinivas Stern PA-C [address] [place] [address] 138145 Physician Planner Internship Physician Planner Internship 10/02/18 Srinivas Stern PA-C [address] [place] [address] 058295 Assigned Gastroenterology Provider 07/17/22 Bandar Casas RPH [address] 6[address] [place], [place] 4[address] Pharmacist Pharmacist 08/18/23 Bandar Casas RPH [address] [id number] Assigned MTM Pharmacist 08/27/23 Ayana Zhang PA-C 5200 [place] [address] Physician Planner Internship Rheumatology 04/16/24 documented as of this encounter
--- OUTSIDE RECORDS SUMMARY | 2025-01-15 17:28 | XMS_ITS | Encounter Summary ---
Author Organization [place] Address [address] [place] [address] Care Team Providers Care Rim Turning Machine Operator Name Role Phone Jairo Vasquez MD Primary Care Provider [phone] Kylee Dailey MD Unavailable + Kayode Ivey MD Unavailable [phone] Nicolasa Perez APRN SENIOR BI DEVELOPER Unavaila ble Srinivas Stern PA-C Unavailable [phone] Srinivas Stern-C Unavailable Bandar Casas [facility] Unavailable Bandar Casas [facility] Unavailable [phone] Ayana Zhagn PA-C Unavailable Encounter Details Date Type Department Care Team (Late st Contact Info) Description 12/28/2024 [facility] [place] [address] [facility] 4th [place] [address] Jeri Shaffer Social History Tobacco [...] file 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 Gender Identity Not on file Sexual Orientation Not on file 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 Plan of Treatment Upcoming Encounters Date Type Department Care Team (Latest Contact Info) Description 02/13/2025 3:20 PM CDT Appointment [facility] [address] [facility] [address] [place] [address] Kayode Ivey MD [address] [place] [address] 709045 03/07/2025 3:00 PM CDT Ancillary Procedure [address] [place] [address] Srinivas Stern PA-C [address] [place] [address] 068235 04/24/2025 2:40 PM CDT Virtual Visit [facility] [address] 4th [place] [phone] Alexis Torres MD 420 [place], [place] 7[address] Srinivas Stern PA-C [address] [place] [address] [phone] 06/05/2025 3:30 PM CDT Virtual Visit [facility] GI [facility] [address] [place] [address] 2nd [place] [phone] Kayode Ivey MD [address] [place] [address] 594335 Bandar Casas RPH 420 [facility] 812 [place], [place] 5[address]135 documented as of this encounter Visit Diagnoses Not on filedocumented in this encounter Additional Health Concerns Infection Onset Date Last Indicated Resolved Time MRSA-Contact Isolation Comment:MRSA hx per [facility] right wrist, chest, and elbow 02/17/2016 02/17/2016 Assessment Noted Time PHQ-9 Depression Total Score: 9 03/02/20 16 7:16 AM CDT documented as of this encounter Care Teams Rim Turning Machine Operator Relationship Specialty Start Date End Date Jairo Vasquez MD PCP - General Family Medicine - Sports Medicine 12/29/15 Kylee Dailey MD [address] [place] [address] 2A [place], [place] 771095 Internal Medicine 04/01/17 Kayode Ivey MD [address] [place] [address] 562525 Gastroenterology 04/01/17 Nicolasa Perez APRN SENIOR BI DEVELOPER [address] [place] [id number] [place], [place] [address] Nurse Practitioner Nurse Practitioner 04/28/17 Srinivas Stern PA-C [address] [place] [address] Physician Host/Hostess Physician Host/Hostess 10/02/18 Srinivas Stern PA-C [address] [place] [address] Assigned Gastroenterology Provider 07/17/22 Bandar Casas RPH [address] [place] [address] 812 [place], [place] [phone] Pharmacist Pharmacist 08/18/23 Bandar Casas RPH [address] [place] [address] 812 [place] [address] Assigned MTM Pharmacist 08/27/23 Ayana Zhang PA-C [address] [place] [address] Physician Host/Hostess Rheumatology 04/16/24 documented as of this encounter
--- OUTSIDE RECORDS SUMMARY | 2025-01-15 17:28 | XMS_ITS | Encounter Summary ---
Author Organization [place] Address [address] [place] [address] Care Team Providers Care Banquet Coordinator Name Role Phone Jairo Vasquez MD Primary Care Provider Kylee Dailey MD Unavailable + Kayode Ivey MD Unavailable [phone] Nicolasa Perez APRN [employer] Unavaila ble Srinivas Stern PA-C Unavailable [phone] Srinivas Stern PA-C Unavailable [phone] Bandar Casas [facility] Unavailable [phone] Bandar Casas [facility] Unavailable Ayana Zhang PA-C Unavailable Encounter Details Date Type Department Care Team (Late st Contact Info) Description 12/22/2024 [facility] Only [facility] [address] [place] [address] Srinivas Stern PA-C 909 [place] [address] Social History Tobacco Use Types [...] on file 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 Gender Identity Not on file Sexual Orientation Not on file 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 Plan of Treatment Upcoming Encounters Date Type Department Care Team (Latest Contact Info) Description 02/13/2025 3:20 PM CDT Appointment [facility] Imaging [address] [facility] [address] [place] [address] Kayode Ivey MD [address] [place] [address] 03/07/2025 3:00 PM CDT Ancillary Procedure [address] [place] [address] Srinivas Stern PA-C [address] [place] [address] [phone] 04/24/2025 2:40 PM CDT Virtual Visit [facility] [address] [phone] Alexis Torres MD 420 [place], [place] 764645 Srinivas Stern PA-C [address] [place] [address] [phone] 06/05/2025 3:30 PM CDT Virtual Visit [facility] GI [address] [phone] Kayode Ivey MD [address] [place] [address] [phone] Bandar Casas, [facility] 420 [facility] 812 [place] [address] documented as of this encounter Visit Diagnoses Not on filedocumented in this encounter Additional Health Concerns Infection Onset Date Last Indicated Resolved Time MRSA-Contact Isolation Comment:MRSA hx per [facility] right wrist, chest, and elbow 02/17/2016 02/17/2016 Assessment Noted Time PHQ-9 Depression Total Score: 9 03/02/20 16 7:16 AM CDT documented as of this encounter Care Teams Banquet Coordinator Relationship Specialty Start Date End Date Jairo Vasquez MD PCP - General Family Medicine - Sports Medicine 12/29/15 Kylee Dailey MD 6 [facility] [place], [place] [address] Internal Medicine 04/01/17 Kayode Ivey MD [address] [place] [address] [phone] Gastroenterology 04/01/17 Nicolasa Perez APRN MATCHING MACHINE OPERATOR [address] [place] [address] [id number] [place], [place] 612[address] Nurse Practitioner Nurse Practitioner 04/28/17 Srinivas Stern PA-C [address] [place] [address] 661005 Physician Hand Stone Polisher Physician Hand Stone Polisher 10/02/18 Srinivas Stern PA-C [address] [place] [address] 436325 Assigned Gastroenterology Provider 07/17/22 Bandar Casas RPH [address] [place], [place] 5670[address] Pharmacist Pharmacist 08/18/23 Bandar Casas RPH [address] 3330[address] [place], [place] 8[address]75 Assigned MTM Pharmacist 08/27/23 Ayana Zhang PA-C 5200 [place] [address] Physician Hand Stone Polisher Rheumatology 04/16/24 documented as of this encounter
--- OUTSIDE RECORDS SUMMARY | 2025-01-15 17:28 | XMS_ITS | Encounter Summary ---
Author Organization [facility] Address [address] [place] [address] Care Team Providers Care Fashion Buying Internship Name Role Phone Jairo Vasquez MD Primary Care Provider [phone] Kylee Dailey MD Unavailable + Kayode Ivey MD Unavailable [phone] Nicolasa Perez APRN SHOE ASSOCIATE Unavaila ble Srinivas SternC Unavailable [phone] PitSrinivas mcintosh PA-C Unavailable [phone] Sue Mckeon [facility] Unavailable [phone] Karen Trinh MD Unavailable [phone] Violet Ta [facility] Unavailable Violet Ta [facility] Unavailable [phone] PitSrinivas mcintosh PA-C Unavailable +[phone] Bandar Casas [facility] Unavailable +[phone] Bandar Casas [facility] Unavailable [phone] Ayana ZhangC Unavailable [phone] PitSrinivas mcintosh PA-C Unavailable [phone] Encounter Details Date Type Department Care Team (Latest Contact Info) Description 03/17/2021 [facility] [address] 4th [place] [phone] Kayode Ivey MD [address] [place] [address] Ulcerative pancolitis with rectal bleeding (H) (Primary [...] file 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 Gender Identity Not on file Sexual [...] Appointment [facility] [address] [facility] [address] [place] [phone] Kayode Ivey MD [address] [place] [address] 03/07/2025 3:00 PM CDT Ancillary Procedure [facility] [address] [facility] [address] [place] [address] Srinivas Stern PA-C 909 [place], [place] 815825 04/24/2025 2:40 PM CDT Virtual Visit [facility] [place] [address] [facility] 4th [place] [phone] Alexis Torres MD 420 [place], [place] 486775 Srinivas Stern PA-C 909 [place], [place] 733275 06/05/2025 3:30 PM CDT Virtual Visit [facility] [place] [address] [facility] 2nd [place] [address] Kayode Ivey MD 516 [place], [place] 271505 Bandar Casas RPH 420 [facility] 812 [place], [place] 792775 documented as of this encounter Visit Diagnoses Diagnosis Ulcerative pancolitis with rectal bleeding (H)- Primary documented in this encounter Additional Health Concerns Infection Onset Date Last Indicated Resolved Time MRSA-Contact Isolation Comment:MRSA hx per [facility] right wrist, chest, and elbow 02/17/2016 02/17/2016 Rule Out C-difficile 10/04/2023 10/05/2023 024 7:28 PM INTERNET SPECIALIST C-difficile 10/05/2023 10/05/2023 11/04/2023 11:3 9 PM INTERNET SPECIALIST Rule Out C-difficile 09/03/2024 09/04/2024 025 12:45 PM INTERNET SPECIALIST Assessment Noted Time PHQ-9 Depression Total Score: 9 03/02/20 16 7:16 AM CDT documented as of this encounter Care Teams Fashion Buying Internship Relationship Specialty Start Date End Date Jairo Vasquez MD PCP - General Family Medicine - Sports Medicine 12/29/15 Kylee Dailey MD [address] [place] [address] Internal Medicine 04/01/17 Kayode Ivey MD [address] [place] [address] Gastroenterology 04/01/17 Nicolasa Perez APRN SHOE ASSOCIATE [address] [place] [address] [address] Nurse Practitioner Nurse Practitioner 04/28/17 Srinivas Stern PA-C [address] [place] [address] Physician Ese Teacher Physician Ese Teacher 10/02/18 Srinivas Stern PA-C [address] [place] [address] Assigned Heart and Vascular Provider 11/19/20 06/27/21 Sue Mckeon [facility] [address] [place] [address]04 Pharmacist Pharmacist Bracelet And Brooch Maker 02/09/21 06/29/22 Karen Trinh MD 909 [place] [address] Assigned Infectious Disease Provider 02/08/21 07/30/22 Violet Ta, [facility] [address] [place] [address] Assigned MTM Pharmacist 02/27/22 05/21/22 [facility] [address] [place] [address] Assigned MTM Pharmacist 06/02/22 07/09/22 Srinivas Stern PA-C [address] [place] [address] Assigned Gastroenterology Provider 07/17/22 Bandar Casas [facility] [address] [facility] 812 [place] [address] Pharmacist Pharmacist 08/18/23 [facility] [address] [id number] [place] [address] Assigned MTM Pharmacist 08/27/23 Ayana Zhang PA-C 5200 [place] [address] Physician Ese Teacher Rheumatology 04/16/24 Srinivas Stern PA-C 9 [place] [address] Home Infusion Following Provider Gastroenterology 07/11/24 10/05/24 documented as of this encounter
--- OUTSIDE RECORDS SUMMARY | 2025-01-15 17:28 | XMS_ITS | Encounter Summary ---
Author Organization [facility] Address [address] [place] [address] Care Team Providers Care Tar Heat Exchanger Cleaner Name Role Phone Jairo Vasquez MD Primary Care Provider [phone] Kylee Dailey MD Unavailable + Kayode Ivey MD Unavailable [phone] Nicolasa Perez APRN AUTOMOBILE GLASS TECHNICIAN Unavaila ble Srinivas SternC Unavailable [phone] PitSrinivas mcintosh PA-C Unavailable [phone] Sue Mckeon [facility] Unavailable [phone] Karen Trinh MD Unavailable [phone] Violet Ta [facility] Unavailable Violet Ta [facility] Unavailable [phone] PitSrinivas mcintosh PA-C Unavailable [phone] Bandar Casas [facility] Unavailable [phone] Bandar Casas [facility] Unavailable [phone] Ayana Zhang PA-C Unavailable PitSrinivas mcintosh PA-C Unavailable [phone] Encounter Details Date Type Department Care Team (Late st Contact Info) Description 03/11/2021 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 Gender Identity Not on file Sexual Orientation [...] 3:20 PM CDT Appointment [facility] Imaging [address] [facility] [address] [place] [phone] Kayode Ivey MD 516 [place], [place] 570375 03/07/2025 3:00 PM CDT Ancillary Procedure [facility] [address] [facility] [address] [place] [address] Srinivas Stern PA-C 909 [place] [address] 04/24/2025 2:40 PM CDT Virtual Visit [facility] Gastroenterology [address] [place] [phone] Alexis Torres MD 420 [place], [place] 541915 Srinivas Stern PA-C 909 [place], [place] 936915 06/05/2025 3:30 PM CDT Virtual Visit [facility] [address] [facility] 2nd [place] [address] Kayode Ivey MD 516 [place], [place] 912045 Bandar Casas, [facility] 420 [facility] 812 [place], [place] 839175 documented as of this encounter Visit Diagnoses Not on filedocumented in this encounter Additional Health Concerns Infection Onset Date Last Indicated Resolved Time MRSA-Contact Isolation Comment:MRSA hx per [facility] right wrist, chest, and elbow 02/17/2016 02/17/2016 Rule Out C-difficile 10/04/2023 10/05/2023 024 7:28 PM CAREER DEVELOPMENT FACILITATOR C-difficile 10/05/2023 10/05/2023 11/04/2023 11:3 9 PM CAREER DEVELOPMENT FACILITATOR Rule Out C-difficile 09/03/2024 09/04/2024 025 12:45 PM CAREER DEVELOPMENT FACILITATOR Assessment Noted Time PHQ-9 Depression Total Score: 9 03/02/20 16 7:16 AM CDT documented as of this encounter Care Teams Tar Heat Exchanger Cleaner Relationship Specialty Start Date End Date Jairo Vasquez MD PCP - General Family Medicine - Sports Medicine 12/29/15 Kylee Dailey MD [address] [place] [address] [address] [place], [place] 466795 Internal Medicine 04/01/17 Kayode Ivey MD 6 [place] [address] Gastroenterology 04/01/17 Nicolasa Perez APRN AUTOMOBILE GLASS TECHNICIAN [address] [place] [address] [id number] [place] [address] Nurse Practitioner Nurse Practitioner 04/28/17 Srinivas Stern PA-C [address] [place] [address] 854965 Physician Patient Consumer Marketer Physician Patient Consumer Marketer 10/02/18 Srinivas Stern PA-C [address] [place] [address] 098275 Assigned Heart and Vascular Provider 11/19/20 06/27/21 Sue Mckeon [facility] [address] [place] [address] 686395 Pharmacist Pharmacist Payroll Associate 02/09/21 06/29/22 Karen Trinh MD [address] [place] [address] 196575 Assigned Infectious Disease Provider 02/08/21 07/30/22 [facility] [address] [place] [address] Assigned MTM Pharmacist 02/27/22 05/21/22 Violet Ta, [facility] [address] [place] [address] Assigned MTM Pharmacist 06/02/22 07/09/22 Srinivas Stern PA-C 909 [place], [place] 450245 Assigned Gastroenterology Provider 07/17/22 Bandar Casas RPH [address] [address] Pharmacist Pharmacist 08/18/23 Bandar Casas RP [address] [address] Assigned MTM Pharmacist 08/27/23 Ayana Zhang PA-C [address] [place] [address] [id number] Physician Patient Consumer Marketer Rheumatology 04/16/24 Srinivas Stern PA-C [address] [place] [address] [phone] Home Infusion Following Provider Gastroenterology 07/11/24 10/05/24 documented as of this encounter
--- OUTSIDE RECORDS SUMMARY | 2025-01-15 17:28 | XMS_ITS | Encounter Summary ---
Author Organization [facility] Address [address] [place] [address] Care Team Providers Care Trainman Name Role Phone Jairo Vasquez MD Primary Care Provider [phone] Kylee Dailey MD Unavailable + Kayode Ivey MD Unavailable [phone] Nicolasa Perez APRN CEMENT MIXER Unavaila ble Srinivas Stern-C Unavailable [phone] Srinivas Stern-C Unavailable [phone] Bandar Casas [facility] Unavailable [phone] Bandar Casas [facility] Unavailable [phone] Ayana Zhang-C Unavailable [phone] Encounter Details Date Type Department Care Team [...] on file 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 Gender Identity Not on file Sexual Orientation Not on file 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 Plan of Treatment Upcoming Encounters Date Type Department Care Team (Latest Contact Info) Description 02/13/2025 3:20 PM CDT Appointment [facility] Imaging [address] [facility] [address] [place] [address] Kayode Ivey MD 6 [place], [place] 993855 03/07/2025 3:00 PM CDT Ancillary Procedure [facility] [address] [facility] [address] [place] [address] Srinivas Stern PA-C [address] [place] [address] 720045 04/24/2025 2:40 PM CDT Virtual Visit [facility] Gastroenterology Clinic [address] 4th [place] [phone] Alexis Torres MD 420 [place], [place] 513425 Srinivas Stern PA-C [address] [place] [address] 693745 06/05/2025 3:30 PM CDT Virtual Visit [facility] GI [facility] [address] [place] [address] 2nd [place] [address] Kayode Ivey MD 6 [place], [place] 010995 Bandar Casas RPH 420 [facility] 812 [place] [address] documented as of this encounter Visit Diagnoses Not on filedocumented in this encounter Additional Health Concerns Infection Onset Date Last Indicated Resolved Time MRSA-Contact Isolation Comment:MRSA hx per [facility] right wrist, chest, and elbow 02/17/2016 02/17/2016 Assessment Noted Time PHQ-9 Depression Total Score: 9 03/02/20 16 7:16 AM CDT documented as of this encounter Care Teams Trainman Relationship Specialty Start Date End Date Jairo Vasquez MD PCP - General Family Medicine - Sports Medicine 12/29/15 Kylee Dailey MD 516 [facility] 2A [place] [address] Internal Medicine 04/01/17 Kayode Ivey MD 6 [place] [address] Gastroenterology 04/01/17 Nicolasa Perez APRN CEMENT MIXER 909 [facility]121[address]J [place], [place] 391465 Nurse Practitioner Nurse Practitioner 04/28/17 Srinivas Stern PA-C 9 [place], [place] 563115 Physician Palletiser Operator Physician Palletiser Operator 10/02/18 Srinivas Stern PA-C 909 [place] [address] Assigned Gastroenterology Provider 07/17/22 Bandar Casas RPH [address] [address] Pharmacist Pharmacist 08/18/23 Bandar Casas RPH [address] [place] [address] 812 [place] [address] Assigned MTM Pharmacist 08/27/23 Ayana Zhang PA-C 5200 [place], [place] 1824492 Physician Palletiser Operator Rheumatology 04/16/24 documented as of this encounter
--- OUTSIDE RECORDS SUMMARY | 2025-01-15 17:28 | XMS_ITS | Encounter Summary ---
Author Organization [facility] Address [address] [place] [address] Care Team Providers Care Molder Wax Ball Name Role Phone Jairo Vasquez MD Primary Care Provider [phone] Kylee Dailey MD Unavailable + Kayode Ivey MD Unavailable [phone] Nicolasa Perez APRN CHILD ATTENDANT Unavaila ble Srinivas Stern PA-C Unavailable [phone] Srinivas Stern-C Unavailable Bandar Casas [facility] Unavailable Bandar Casas [facility] Unavailable [phone] Ayana Zhang PA-C Unavailable [phone] Encounter Details Date Type Department Care Team (Late st Contact Info) Description 10/24/2024 [facility] [place] [address] [facility] 4th [place] [address] Kayode Ivey MD [address] [place] [address] Social History Tobacco Use Types Packs/Day [...] on file 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 Gender Identity Not on file Sexual Orientation Not on file 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 Plan of Treatment Upcoming Encounters Date Type Department Care Team (Latest Contact Info) Description 02/13/2025 3:20 PM CDT Appointment [facility] Imaging [address] [facility] [address] [place] [address] Kayode Ivey MD [address] [place] [address] [id number] 03/07/2025 3:00 PM CDT Ancillary Procedure [address] [place] [address] Srinivas Stern PA-C [address] [place] [address] 979965 04/24/2025 2:40 PM CDT Virtual Visit [facility] Gastroenterology Clinic [address] [place] [address] Alexis Torres MD 420 [place], [place] 833195 Srinivas Stern PA-C [address] [place] [address] [phone] 06/05/2025 3:30 PM CDT Virtual Visit [facility] GI [address] [phone] Kayode Ivey MD [address] [place] [address] 410125 Bandar Casas, [facility] 420 [facility] 812 [place] [address] documented as of this encounter Visit Diagnoses Not on filedocumented in this encounter Additional Health Concerns Infection Onset Date Last Indicated Resolved Time MRSA-Contact Isolation Comment:MRSA hx per [facility] right wrist, chest, and elbow 02/17/2016 02/17/2016 Assessment Noted Time PHQ-9 Depression Total Score: 9 03/02/20 16 7:16 AM CDT documented as of this encounter Care Teams Molder Wax Ball Relationship Specialty Start Date End Date Jairo Vasquez MD PCP - General Family Medicine - Sports Medicine 12/29/15 Kylee Dailey MD 6 [facility] 2A [place], [place] 543945 Internal Medicine 04/01/17 Kayode Ivey MD [address] [place] [address] 637925 Gastroenterology 04/01/17 Nicolasa Perez APRN CHILD ATTENDANT [address] [place] [address] [id number] [place], [place] 571895 Nurse Practitioner Nurse Practitioner 04/28/17 Srinivas Stern PA-C [address] [place] [address] 074565 Physician Field Education Director Physician Field Education Director 10/02/18 Srinivas Stern PA-C [address] [place] [address] 289165 Assigned Gastroenterology Provider 07/17/22 Bandar Casas RPH [address] 488592 [place], [place] 828345 Pharmacist Pharmacist 08/18/23 Bandar Casas RPH [address] 233475 Assigned MTM Pharmacist 08/27/23 Ayana Zhang PA-C 5200 [place] [address] Physician Field Education Director Rheumatology 04/16/24 documented as of this encounter
--- OUTSIDE RECORDS SUMMARY | 2025-01-15 17:28 | XMS_ITS | Encounter Summary ---
Author Organization [facility] Address [address] [place] [address]. [place] [address] Care Team Providers Care Mix Mill Tender Name Role Phone Jairo Vasquez MD Primary Care Provider Kylee Dailey MD Unavailable + Kayode Ivey MD Unavailable Nicolasa Perez APRN LINK TRAINER TEACHER Unavaila ble Srinivas Stern PA-C Unavailable [phone] Srinivas Stern-C Unavailable [phone] Bandar Casas [facility] Unavailable [phone] Bandar Casas [facility] Unavailable [phone] Ayana Zhang PA-C Unavailable Encounter Details Date Type Department Care Team (Late st Contact Info) Description 12/07/2024 [facility] Medical Advice [facility] [address] [facility] [address] 2nd [place] [address] Bandar Casas, [facility] 420 [facility] 812 [place] [address] Social History Tobacco Use Types [...] file 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 Gender Identity Not on file Sexual Orientation Not on file 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 Plan of Treatment Upcoming Encounters Date Type Department Care Team (Latest Contact Info) Description 02/13/2025 3:20 PM CDT Appointment [facility] Imaging [address] [facility] [address] [place] [address] Kayode Ivey MD [address] [place] [address] 03/07/2025 3:00 PM CDT Ancillary Procedure [address] [place] [address] Srinivas Stern PA-C [address] [place] [address] [phone] 04/24/2025 2:40 PM CDT Virtual Visit [facility] Gastroenterology Clinic [address] [phone] Alexis Torres MD 420 [place], [place] 852585 Srinivas Stern PA-C [address] [place] [address] 323995 06/05/2025 3:30 PM CDT Virtual Visit [facility] GI [address] [phone] Kayode Ivey MD [address] [place] [address] 465235 Bandar Casas, [facility] 420 [facility] 812 [place] [address] documented as of this encounter Visit Diagnoses Not on filedocumented in this encounter Additional Health Concerns Infection Onset Date Last Indicated Resolved Time MRSA-Contact Isolation Comment:MRSA hx per [facility] right wrist, chest, and elbow 02/17/2016 02/17/2016 Assessment Noted Time PHQ-9 Depression Total Score: 9 03/02/20 16 7:16 AM CDT documented as of this encounter Care Teams Mix Mill Tender Relationship Specialty Start Date End Date Jairo Vasquez MD PCP - General Family Medicine - Sports Medicine 12/29/15 Kylee Dailey MD 6 [facility] [place], [place] 974485 Internal Medicine 04/01/17 Kayode Ivey MD [address] [place] [address] 080615 Gastroenterology 04/01/17 Nicolasa Perez APRN LINK TRAINER TEACHER [address] [place] [address] [id number] [place], [place] 614265 Nurse Practitioner Nurse Practitioner 04/28/17 Srinivas Stern PA-C [address] [place] [address] [id number] Physician Mine Inspector Physician Mine Inspector 10/02/18 Srinivas Stern PA-C [address] [place] [address] [id number] Assigned Gastroenterology Provider 07/17/22 Bandar Casas RPH [address] 208872 [place], [place] 0[address]75 Pharmacist Pharmacist 08/18/23 Bandar Casas RPH [address] 208872 [place], [place] 037615 Assigned MTM Pharmacist 08/27/23 Ayana Zhang PA-C 5200 [place] [address] Physician Mine Inspector Rheumatology 04/16/24 documented as of this encounter
--- OUTSIDE RECORDS SUMMARY | 2025-01-15 17:28 | XMS_ITS | Encounter Summary ---
Author Organization [employer] Address [address] [place] [address] Care Team Providers Care Convention Manager Name Role Phone Jairo Vasquez MD Primary Care Provider [phone] Kylee Dailey MD Unavailable + Kyaode Ivey MD Unavailable [phone] Nicolasa Perez APRN EXECUTIVE VICE PRESIDENT OF SALES Unavaila ble Srinivas Stern-C Unavailable +[phone] Srinivas Stern-C Unavailable +[phone] Bandar Casas [facility] Unavailable [phone] Bandar Casas [facility] Unavailable +[phone] Ayana Zhang-C Unavailable Encounter Details Date Type Department Care Team (Late st Contact Info) Description 12/15/2024 11:10 AM CDT Lab [facility] [address] [place] [address] Ulcerative pancolitis without complication (H); Ulcerative colitis [...] on file 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 Gender Identity Not on file Sexual Orientation Not on file 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 Plan of Treatment Upcoming Encounters Date Type Department Care Team (Latest Contact Info) Description 02/13/2025 3:20 PM CDT Appointment [facility] Imaging [address] [facility] [address] [place] [address] Kayode Ivey MD [address] [place] [address] 03/07/2025 3:00 PM CDT Ancillary Procedure [address] [place] [address] Srinivas Stern PA-C [address] [place] [address] [phone] 04/24/2025 2:40 PM CDT Virtual Visit [facility]ology Clinic [address] [place] [address] Alexis Torres MD 420 [place], [place] 490765 Srinivas Stern PA-C [address] [place] [address] [phone] 06/05/2025 3:30 PM CDT Virtual Visit [facility] GI [address]nd [place] [address] Kayode Ivey MD [address] [place] [address] 110105 Bandar Casas RPH 420 [facility] 812 [place] [address] documented as of this encounter Procedures Procedure [...] BLOOD ORDERABLES Chika arias Result [facility] LABORATORY [facility] Acute Care Lab [address] Lab (1st floor, no room number) [place] [address], [facility] * Vedolizumab Level and Antibodies (12/15/2024 [...] Ed ited Result - Final [facility] [address] [place], [place] [id number] [place] [address] * (ABNORMAL) Hepatic function panel (12/15/2024 11:17 [...] LAB - BLOOD ORDERABLES Chika l Result [facility] [address] Lab (1st floor, no room number) [place] [address] * CRP inflammation (12/15/2024 11:17 AM CDT) CRP Inflammation <3.00 <5.00 mg/L 12/16/19 11:39 AM CDT LABORATORY Blood STRUCTURE OF LEFT HAND / Unknown Venipuncture / Unknown 12/15/2024 11:17 AM CDT 12/15/2024 11:19 AM CDT Srinivasgevoanni [facility] LAB - BLOOD ORDERABLES Chika l Result [facility] [address] Lab (1st floor, no room number) [place] [address] documented in this encounter Visit Diagnoses Diagnosis [...] documented as of this encounter Care Teams Convention Manager Relationship Specialty Start Date End Date Jairo Vasquez MD PCP - General Family Medicine - Sports Medicine 12/29/15 Kylee Dailey MD [address] [address] Internal Medicine 04/01/17 Kayode Ivey MD 516 [place] [address] Gastroenterology 04/01/17 Nicolasa Perez APRN EXECUTIVE VICE PRESIDENT OF SALES [address] [place] [address] [id number] [place] [address] Nurse Practitioner Nurse Practitioner 04/28/17 Srinivas Stern PA-C [address] [place] [address] [phone] Physician Procurement Specialist Physician Procurement Specialist 10/02/18 Srinivas Stern PA-C 909 [place], [place] 729245 Assigned Gastroenterology Provider 07/17/22 Bandar Casas RPH 420 [facility] 812 [place], [place] 788525 Pharmacist Pharmacist 08/18/23 Bandar Casas RPH 420 [facility] 812 [place], [place] 740435 Assigned MTM Pharmacist 08/27/23 Ayana Zhang PA-C 5[address] [place] [address] Physician Procurement Specialist Rheumatology 04/16/24 documented as of this encounter
--- OUTSIDE RECORDS SUMMARY | 2025-01-15 17:28 | XMS_ITS | Encounter Summary ---
Author Organization [employer] Address [address] [place] [address]. [place] [address] Care Team Providers Care Marketing Community Liaison Name Role Phone Jairo Vasquez MD Primary Care Provider [phone] Kylee Dailey MD Unavailable + Kayode Ivey MD Unavailable [phone] Nicolasa Perez APRN FILE KEEPER Unavaila ble Srinivas Stern PA-C Unavailable [phone] Srinivas Stern-C Unavailable Bandar Casas [facility] Unavailable Bandar Casas [facility] Unavailable Ayana Zhang PA-C Unavailable Encounter Details Date Type Department Care Team (Late st Contact Info) Description 11/25/2024 [facility] Medical Advice [facility] [address] [facility] [address] 2nd [place] [address] Bandar Casas, [facility] 420 [facility] 812 [place] [address] Social History Tobacco Use Types [...] on file 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 Gender Identity Not on file Sexual Orientation Not on file 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 Plan of Treatment Upcoming Encounters Date Type Department Care Team (Latest Contact Info) Description 02/13/2025 3:20 PM CDT Appointment [facility] Imaging [address] [facility] [address] [place] [address] Kayode Ivey MD [address] [place] [address] 03/07/2025 3:00 PM CDT Ancillary Procedure [address] [place] [address] Srinivas Stern PA-C [address] [place] [address] [phone] 04/24/2025 2:40 PM CDT Virtual Visit [facility] Gastroenterology Clinic [address] [phone] Alexis Torres MD 420 [place], [place] 458185 Srinivas Stern PA-C [address] [place] [address] [phone] 06/05/2025 3:30 PM CDT Virtual Visit [facility] GI [address] [phone] Kayode Ivey MD [address] [place] [address] 893485 Bandar Casas, [facility] 420 [facility] 812 [place] [address] documented as of this encounter Visit Diagnoses Not on filedocumented in this encounter Additional Health Concerns Infection Onset Date Last Indicated Resolved Time MRSA-Contact Isolation Comment:MRSA hx per [facility] right wrist, chest, and elbow 02/17/2016 02/17/2016 Assessment Noted Time PHQ-9 Depression Total Score: 9 03/02/20 16 7:16 AM CDT documented as of this encounter Care Teams Marketing Community Liaison Relationship Specialty Start Date End Date Jairo Vasquez MD PCP - General Family Medicine - Sports Medicine 12/29/15 Kylee Dailey MD 6 [facility] 2A [place], [place] 493995 Internal Medicine 04/01/17 Kayode Ivey MD [address] [place] [address] 805175 Gastroenterology 04/01/17 Nicolasa Perez APRN FILE KEEPER [address] [place] [address] [id number] [place], [place] 374055 Nurse Practitioner Nurse Practitioner 04/28/17 Srinivas Stern PA-C [address] [place] [address] 567365 Physician Fire Assistant Physician Fire Assistant 10/02/18 Srinivas Stern PA-C [address] [place] [address] [phone] Assigned Gastroenterology Provider 07/17/22 Bandar Casas RPH [address] [place] [place] 566952 [place], [place] 189915 Pharmacist Pharmacist 08/18/23 Bandar Casas RPH [address] 566952 [place], [place] 897505 Assigned MTM Pharmacist 08/27/23 Ayana Zhang PA-C 5200 [place] [address] Physician Fire Assistant Rheumatology 04/16/24 documented as of this encounter
--- OUTSIDE RECORDS SUMMARY | 2025-01-15 17:28 | XMS_ITS | Encounter Summary ---
Author Organization [place] Address [address] [place] [address] Care Team Providers Care Contract Manager Name Role Phone Jairo Vasquez MD Primary Care Provider Kylee Dailey MD Unavailable + Kayode Ivey MD Unavailable [phone] Nicolasa Perez APRN BLOCKERS SKIVER Unavaila ble Srinivas Stern PA-C Unavailable [phone] Srinivas Stern-C Unavailable Bandar Casas [facility] Unavailable [phone] Bandar Casas [facility] Unavailable Ayana Zhang PA-C Unavailable [phone] Reason for Visit * Reason Onset Date Comments FCP 12/20/2024 Encounter Details Date Type Department Care Team (Late st Contact Info) Description 12/20/2024 MyC Medical Advice [facility] Gastroenterology Clinic [address] [place] [address] Mariajose Dailey, RN [address] [place] [address] 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 Imaging [address] [facility] [address] [place] [address] Kayode Ivey MD [address] [place] [address] [phone] 03/07/2025 3:00 PM CDT Ancillary Procedure [address] [place] [address] Srinivas Stern PA-C [address] [place] [address] [phone] 04/24/2025 2:40 PM CDT Virtual Visit [facility]ology Clinic [address] [place] [phone] Alexis Torres MD 420 [place], [place] 863015 Srinivas Stern PA-C [address] [place] [address] 660205 06/05/2025 3:30 PM CDT Virtual Visit [facility] GI [address] [phone] Kayode Ivey MD [address] [place] [address] 886355 Bandar Casas, [facility] 420 [facility] 812 [place] [address] documented as of this encounter Visit Diagnoses Not on filedocumented in this encounter Additional Health Concerns Infection Onset Date Last Indicated Resolved Time MRSA-Contact Isolation Comment:MRSA hx per [facility] right wrist, chest, and elbow 02/17/2016 02/17/2016 Assessment Noted Time PHQ-9 Depression Total Score: 9 03/02/20 16 7:16 AM CDT documented as of this encounter Care Teams Contract Manager Relationship Specialty Start Date End Date Jairo Vasquez MD PCP - General Family Medicine - Sports Medicine 12/29/15 Kylee Dailey MD 6 [facility] [address] [place], [place] 408415 Internal Medicine 04/01/17 Kayode Ivey MD 6 [place], [place] 645145 Gastroenterology 04/01/17 Nicolasa Perez APRN BLOCKERS SKIVER [address] [place] [address] [id number] [place], [place] 673405 Nurse Practitioner Nurse Practitioner 04/28/17 Srinivas Stern PA-C [address] [place] [address] 597975 Physician Fisher Scallop Physician Fisher Scallop 10/02/18 Srinivas Stern PA-C [address] [place] [address] [phone] Assigned Gastroenterology Provider 07/17/22 Bandar Casas RPH 420 [facility] 812 [place], [place] 887555 Pharmacist Pharmacist 08/18/23 Bandar Casas RPH [address] [place] 592472 [place], [place] 108175 Assigned MTM Pharmacist 08/27/23 Ayana Zhang PA-C 5200 [place] [address] Physician Fisher Scallop Rheumatology 04/16/24 documented as of this encounter
--- OUTSIDE RECORDS SUMMARY | 2025-01-15 17:29 | XMS_ITS | Encounter Summary ---
Author Organization [place] Address [address] [place] [address] Care Team Providers Care Acid Bath Mixer Name Role Phone Jairo Vasquez MD Primary Care Provider [phone] Kylee Dailey MD Unavailable + Kayode Ivey MD Unavailable [phone] Nicolasa Perez APRN LOGGING SUPERVISOR Unavaila ble Srinivas Stern PA-C Unavailable [phone] Srinivas Stern PA-C Unavailable [phone] Violet Ta [facility] Unavailable [phone] Sue Mckeon [facility] Unavailable [phone] Karen Trinh MD Unavailable [phone] Violet Ta [facility] Unavailable [phone] Violet Ta [facility] Unavailable +[phone] Srinivas Stern PA-C Unavailable [phone] Bandar Casas [facility] Unavailable [phone] Bandar Casas [facility] Unavailable [phone] Ayana Zhang PA-C Unavailable [phone] Srinivas Stern PA-C Unavailable [phone] Encounter Details Date Type Department Care Team (Late st Contact Info) Description 09/10/2020 MyC Medical Advice [facility] Gastroenterology Clinic [address] [address] Kayode Ivey MD 6 [place], [place] 624105 Social History Tobacco Use Types Packs/Day Years Used Date Smoking Tobacco: Never Smokeless Tobacco: Never Alcohol Use Standard Drinks/Week Comments Yes 13 (1 standard drink = 0.6 oz pu re alcohol) MONTHLY PHQ-2 Answer Date Recorded PHQ-2 Score 2 08/20/2019 Sex and Gender Information Value Date Recorded Sex Assigned at Not on file 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 Gender Identity Not on file Sexual Orientation Not on file 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 Plan of Treatment Upcoming Encounters Date Type Department Care Team (Latest Contact Info) Description 02/13/2025 3:20 PM CDT Appointment [facility] Imaging [address] [facility] [address] [place] [phone] Kayode Ivey MD 6 [place], [place] [phone] 03/07/2025 3:00 PM CDT Ancillary Procedure [address] [place] [address] Srinivas Stern PA-C [address] [place] [address] [phone] 04/24/2025 2:40 PM CDT Virtual Visit [facility] Gastroenterology Clinic [address] [phone] Alexis Torres MD 420 [place], [place] [phone] Srinivas Stern PA-C 909 [place], [place] [phone] 06/05/2025 3:30 PM CDT Virtual Visit [place] 909 [facility] 2nd [place] [phone] Kayode Ivey MD 516 [place] [address] Bandar Casas, [facility] 420 [facility] 812 [place] [address] documented as of this encounter Visit Diagnoses Not on filedocumented in this encounter Additional Health Concerns Infection Onset Date Last Indicated Resolved Time MRSA-Contact Isolation Comment:MRSA hx per [facility] right wrist, chest, and elbow 02/17/2016 02/17/2016 Rule Out C-difficile 10/04/2023 10/05/2023 024 7:28 PM DRAFTER CARTOGRAPHIC C-difficile 10/05/2023 10/05/2023 11/04/2023 11:3 9 PM DRAFTER CARTOGRAPHIC Rule Out C-difficile 09/03/2024 09/04/2024 025 12:45 PM DRAFTER CARTOGRAPHIC Assessment Noted Time PHQ-9 Depression Total Score: 9 03/02/20 16 7:16 AM CDT documented as of this encounter Care Teams Acid Bath Mixer Relationship Specialty Start Date End Date Jairo Vasquez MD PCP - General Family Medicine - Sports Medicine 12/29/15 Kylee Dailey MD [address] [place] [address] 2A [place] [address] Internal Medicine 04/01/17 Kayode Ivey MD [address] [place] [address] Gastroenterology 04/01/17 Nicolasa Perez APRN CNP [address] [place] [address] [id number] [place] [address] Nurse Practitioner Nurse Practitioner 04/28/17 Srinivas Stern PA-C [address] [place] [address] Physician Lumber Chain Offbearer Physician Lumber Chain Offbearer 10/02/18 Srinivas Stern PA-C [address] [place] [address] Assigned Heart and Vascular Provider 11/19/20 06/27/21 Violet Ta [facility] [address] [place] [address] Pharmacist Pharmacist 12/29/20 02/08/21 Sue Mckeon [facility] [address] [place] [address] Pharmacist Pharmacist Deposition Operator 02/09/21 06/29/22 Karen Trinh MD [address] [place] [address] Assigned Infectious Disease Provider 02/08/21 07/30/22 Violet Ta [facility] [address] [place] [address] Assigned MTM Pharmacist 02/27/22 05/21/22 Violet Ta [facility] [address] [place] [address] Assigned MTM Pharmacist 06/02/22 07/09/22 Srinivas Stern PA-C 909 [place] [address] Assigned Gastroenterology Provider 07/17/22 Bandar Casas [facility] [address] 464[address] Pharmacist Pharmacist 08/18/23 Bandar Casas [facility] [address] 858675 Assigned MTM Pharmacist 08/27/23 Ayana Zhang PA-C 5200 [place] [address] Physician Lumber Chain Offbearer Rheumatology 04/16/24 Srinivas Stern PA-C 909 [place] [address] Home Infusion Following Provider Gastroenterology 07/11/24 10/05/24 documented as of this encounter
--- OUTSIDE RECORDS SUMMARY | 2025-01-15 17:29 | XMS_ITS | Encounter Summary ---
Author Organization [place] Address [address] [place] [address] Care Team Providers Care Can Intake Worker Name Role Phone Jairo Vasquez MD Primary Care Provider [phone] Kylee Dailey MD Unavailable + Kayode Ivey MD Unavailable [phone] Nicolasa Perez APRN NETWORK ARCHITECT MANAGER Unavaila ble Loyda Dickey RN Unavailable [phone] Srinivas Stern PA-C Unavailable [phone] Srinivas Stern PA-C Unavailable +[phone] Violet Ta [facility] Unavailable +[phone] Sue Mckeon [facility] Unavailable [phone] Karen Trinh MD Unavailable +[phone] Violet Ta [facility] Unavailable +[phone] Violet Ta [facility] Unavailable +[phone] Srinivas Stern PA-C Unavailable +[phone] Bandar Casas [facility] Unavailable [phone] Bandar Casas [facility] Unavailable Ayana Zhang PA-C Unavailable [phone] Srinivas Stern PA-C Unavailable [phone] Encounter Details Date Type Department Care Team (Late st Contact Info) Description 01/17/2019 MyC Medical Advice [facility] Gastroenterology and IBD Clinic [address] [place] [address] Blanca Menezes, RN Social History Tobacco Use Types Packs/Day Years Used Date Smoking Tobacco: Never Smokeless Tobacco: Never Alcohol Use Standard Drinks/Week Comments Yes 13 (1 standard drink = 0.6 oz pu re alcohol) MONTHLY Sex and Gender Information Value Date Recorded Sex Assigned at Not on file Legal Sex Male 2:58 AM WELLNESS GUIDE Gender Identity Not on file Sexual Orientation Not on file 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 Plan of Treatment Upcoming Encounters Date Type Department Care Team (Latest Contact Info) Description 02/13/2025 3:20 PM CDT Appointment [facility] Imaging [address] [facility] [address] [place] [address] Kayode Ivey MD 516 [place] [address] 03/07/2025 3:00 PM CDT Ancillary Procedure [address] [place] [address] Srinivas Stern PA-C [address] [place] [address] 04/24/2025 2:40 PM CDT Virtual Visit [facility] Gastroenterology Clinic [address] [address] Alexis Torres MD 420 [place], [place] [phone] Srinivas Stern PA-C [address] [place] [address] 06/05/2025 3:30 PM CDT Virtual Visit [facility] [address] [facility] [address] 2nd [place] [address] Kayode Ivey MD 516 [place], [place] [phone] Bandar Casas, [facility] 420 [facility] 812 [place], [place] 787195 documented as of this encounter Visit Diagnoses Not on filedocumented in this encounter Additional Health Concerns Infection Onset Date Last Indicated Resolved Time MRSA-Contact Isolation Comment: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[facility] right wrist, chest, and elbow 02/17/2016 02/17/2016 Rule Out C-difficile 10/04/2023 10/05/2023 024 7:28 PM WELLNESS GUIDE C-difficile 10/05/2023 10/05/2023 11/04/2023 11:3 9 PM WELLNESS GUIDE Rule Out C-difficile 09/03/2024 09/04/2024 025 12:45 PM WELLNESS GUIDE Assessment Noted Time PHQ-9 Depression Total Score: 9 03/02/20 16 7:16 AM CDT documented as of this encounter Care Teams Can Intake Worker Relationship Specialty Start Date End Date Jairo Vasquez MD PCP - General Family Medicine - Sports Medicine 12/29/15 Kylee Dailey MD [address] [place] [address] [address] [place], [place] 7968[address] Internal Medicine 04/01/17 Kayode Ivey MD [address] [place] [address] 126735 Gastroenterology 04/01/17 Nicolasa Perez APRN NETWORK ARCHITECT MANAGER [address] [place] [address] [id number] [place] [address] Nurse Practitioner Nurse Practitioner 04/28/17 Loyda Dickey, RN Nurse Coordinator Neurology 05/26/17 02/26/19 Srinivas Stern PA-C [address] [place] [address] Physician Market Basket Maker Physician Market Basket Maker 10/02/18 Srinivas Stern PA-C [address] [place] [address] Assigned Heart and Vascular Provider 11/19/20 06/27/21 [facility] [address] [place] [address] Pharmacist Pharmacist 12/29/20 02/08/21 Sue Mckeon [facility] [address] [place] [address] Pharmacist Pharmacist Edge Grinder Machine 02/09/21 06/29/22 Karen Trinh MD [address] [place] [address] Assigned Infectious Disease Provider 02/08/21 07/30/22 Violet Ta, [facility] [address] [place] [address] [address] [place] [address] Assigned MTM Pharmacist 02/27/22 05/21/22 Violet Ta [facility] 480 [facility] [address] [place] [address] Assigned MTM Pharmacist 06/02/22 07/09/22 Srinivas Stern PA-C 909 [place] [address] Assigned Gastroenterology Provider 07/17/22 Bandar Casas [facility] [address] [phone] Pharmacist Pharmacist 08/18/23 Bandar Casas [facility] [address] [place] [address] Assigned MTM Pharmacist 08/27/23 Ayana Zhang PA-C 5200 [place] [address] Physician Market Basket Maker Rheumatology 04/16/24 Srinivas Stern PA-C 909 [place] [address] Home Infusion Following Provider Gastroenterology 07/11/24 10/05/24 documented as of this encounter
--- OUTSIDE RECORDS SUMMARY | 2025-01-15 17:29 | XMS_ITS | Encounter Summary ---
Author Organization [place] Address [address] [place] [address] Care Team Providers Care Machine Rebuilder Name Role Phone Jairo Vasquez MD Primary Care Provider [phone] Kylee Dailey MD Unavailable + Kayode Ivey MD Unavailable [phone] Nicolasa Perez APRN COMPLIANCE TECHNICIAN Unavaila ble Srinivas Stern PA-C Unavailable Srinivas Stern PA-C Unavailable Bandar Casas [facility] Unavailable Bandar Casas [facility] Unavailable [phone] Ayana Zhang PA-C Unavailable Srinivas Stern PA-C Unavailable Encounter Details Date Type Department Care Team (Late st Contact Info) Description 07/30/2024 [facility] [address] [place] [address] Srinivas Stern PA-C [address] [place] [address] Social History Tobacco Use Types [...] on file 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 Imaging [address] [facility] [address] [place] [address] Kayode Ivey MD [address] [place] [address] 03/07/2025 3:00 PM CDT Ancillary Procedure [address] [place] [address] Srinivas Stern PA-C [address] [place] [address] 04/24/2025 2:40 PM CDT Virtual Visit [facility] Gastroenterology Clinic [address] [place] [address] Alexis Torres MD [address] [place], [place] [phone] Srinivas Stern PA-C [address] [place] [address] 06/05/2025 3:30 PM CDT Virtual Visit [facility] GI [address] [phone] Kayode Ivey MD [address] [place] [address] Bandar Casas, RPH 420 [facility] 812 [place] [address] documented as of this encounter Visit Diagnoses Not on filedocumented in this encounter Additional Health Concerns Infection Onset Date Last Indicated Resolved Time MRSA-Contact Isolation Comment:MRSA hx per [facility] right wrist, chest, and elbow 02/17/2016 02/17/2016 Rule Out C-difficile 09/03/2024 09/04/2024 025 12:45 PM BIOCHEMICAL DEVELOPMENT ENGINEER Assessment Noted Time PHQ-9 Depression Total Score: 9 03/02/20 16 7:16 AM CDT documented as of this encounter Care Teams Machine Rebuilder Relationship Specialty Start Date End Date Jairo Vasquez MD PCP - General Family Medicine - Sports Medicine 12/29/15 Kylee Dailey MD 6 [facility] 2A [place] [address] Internal Medicine 04/01/17 Kayode Ivey MD 6 [place] [address] Gastroenterology 04/01/17 Nicolasa Perez APRN COMPLIANCE TECHNICIAN [address] [place] [id number] [address] Nurse Practitioner Nurse Practitioner 04/28/17 Srinivas Stern PA-C [address] [place] [address] Physician Arranging Funeral Director Physician Arranging Funeral Director 10/02/18 Srinivas Stern PA-C [address] [place] [address] Assigned Gastroenterology Provider 07/17/22 Bandar Casas RPH [address] [phone] Pharmacist Pharmacist 08/18/23 Bandar Casas RPH [address] [id number] Assigned MTM Pharmacist 08/27/23 Ayana Zhang PA-C 5[address] [place] [address] Physician Arranging Funeral Director Rheumatology 04/16/24 Srinivas Stern PA-C [address] [place] [address] Home Infusion Following Provider Gastroenterology 07/11/24 10/05/24 documented as of this encounter
--- OUTSIDE RECORDS SUMMARY | 2025-01-15 17:29 | XMS_ITS | Encounter Summary ---
Author Organization [place] Address [address] [place] [address] Care Team Providers Care Cut Off Man Name Role Phone Jairo Vasquez MD Primary Care Provider Kylee Dailey MD Unavailable + Kayode Ivey MD Unavailable [phone] Nicolasa Perez APRN TON CONTAINER FILLER Unavaila ble Srinivas Stern-C Unavailable [phone] Srinivas Stern-C Unavailable Bandar Casas [facility] Unavailable [phone] Bandar Casas [facility] Unavailable [phone] Ayana Zhang-C Unavailable [phone] Srinivas Stern-C Unavailable [phone] Encounter Details Date Type Department Care Team (Late st Contact Info) Description 08/20/2024 [facility] [place] [address] [facility] [address] [place] [address] Kayode Ivey MD [address] [place] [address] Social History Tobacco Use Types Packs/Day [...] on file 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 Gender Identity Not on file Sexual Orientation Not on file 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 Plan of Treatment Upcoming Encounters Date Type Department Care Team (Latest Contact Info) Description 02/13/2025 3:20 PM CDT Appointment [facility] Imaging [address] [facility] [address] [place] [address] Kayode Ivey MD [address] [place] [address] 03/07/2025 3:00 PM CDT Ancillary Procedure [address] [place] [address] Srinivas Stern PA-C [address] [place] [address] 04/24/2025 2:40 PM CDT Virtual Visit [facility] Gastroenterology Clinic [address] [place] [address] Alexis Torres MD 420 [place], [place] [phone] Srinivas Stern PA-C [address] [place] [address] 06/05/2025 3:30 PM CDT Virtual Visit [facility] GI [address] [phone] Kayode Ivey MD [address] [place] [address] Bandar Casas, RPH 420 [facility] 812 [place] [address] documented as of this encounter Visit Diagnoses Not on filedocumented in this encounter Additional Health Concerns Infection Onset Date Last Indicated Resolved Time MRSA-Contact Isolation Comment:MRSA hx per [facility] right wrist, chest, and elbow 02/17/2016 02/17/2016 Rule Out C-difficile 09/03/2024 09/04/2024 025 12:45 PM MECHANICAL TECHNICAL SERVICE SPECIALIST Assessment Noted Time PHQ-9 Depression Total Score: 9 03/02/20 16 7:16 AM CDT documented as of this encounter Care Teams Cut Off Man Relationship Specialty Start Date End Date Jairo Vasquez MD PCP - General Family Medicine - Sports Medicine 12/29/15 Kylee Dailey MD 6 [facility] 2[facility] [place] [address] Internal Medicine 04/01/17 Kayode Ivey MD 6 [place] [address] Gastroenterology 04/01/17 Nicolasa Perez APRN TON CONTAINER FILLER [address] [place] [id number] [address] Nurse Practitioner Nurse Practitioner 04/28/17 Srinivas Stern PA-C [address] [place] [address] Physician Sheepskin Pickler Physician Sheepskin Pickler 10/02/18 Srinivas Stern PA-C 909 [place] [address] Assigned Gastroenterology Provider 07/17/22 Bandar Casas RPH [address] 316715 Pharmacist Pharmacist 08/18/23 Bandar Casas RPH [address] 842305 Assigned MTM Pharmacist 08/27/23 Ayana Zhang PA-C 5[address] [place] [address] Physician Sheepskin Pickler Rheumatology 04/16/24 Srinivas Stern PA-C 909 [place] [address] Home Infusion Following Provider Gastroenterology 07/11/24 10/05/24 documented as of this encounter
--- OUTSIDE RECORDS SUMMARY | 2025-01-15 17:29 | XMS_ITS | Encounter Summary ---
Author Organization [place] Address [address] [place] [address] Care Team Providers Care Harp Maker Name Role Phone Jairo Vasquez MD Primary Care Provider Kylee Dailey MD Unavailable + Kayode Ivey MD Unavailable [phone] Nicolasa Perez APRN DISTRIBUTION CENTER ASSISTANT Unavaila ble Srinivas Stern PA-C Unavailable Srinivas Stern PA-C Unavailable Bandar Casas [facility] Unavailable Bandar Casas [facility] Unavailable [phone] Ayana Zhang PA-C Unavailable [phone] Srinivas Stern PA-C Unavailable Encounter Details Date Type Department Care Team (Late st Contact Info) Description 08/12/2024 [facility] Gastroenterology Clinic [address] [place] [address] Srinivas Stern PA-C [address] [place] [address] Social History Tobacco Use Types [...] on file 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 Sex Male 2:58 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 Gender Identity Not on file Sexual Orientation Not on file 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 Plan of Treatment Upcoming Encounters Date Type Department Care Team (Latest Contact Info) Description 02/13/2025 3:20 PM CDT Appointment [facility] Imaging [address] [facility] [address] [place] [address] Kayode Ivey MD [address] [place] [address] 03/07/2025 3:00 PM CDT Ancillary Procedure [address] [place] [address] Srinivas Stern PA-C [address] [place] [address] 04/24/2025 2:40 PM CDT Virtual Visit [facility] Gastroenterology Clinic [address] [place] [address] Alexis Torres MD 420 [place], [place] [phone] Srinivas Stern PA-C [address] [place] [address] 06/05/2025 3:30 PM CDT Virtual Visit [facility] GI [address] [phone] Kayode Ivey MD [address] [place] [address] Bandar Casas, RPH 420 [facility] 812 [place] [address] documented as of this encounter Visit Diagnoses Not on filedocumented in this encounter Additional Health Concerns Infection Onset Date Last Indicated Resolved Time MRSA-Contact Isolation Comment:MRSA hx per [facility] right wrist, chest, and elbow 02/17/2016 02/17/2016 Rule Out C-difficile 09/03/2024 09/04/2024 025 12:45 PM HEDIS REGISTERED NURSE RN Assessment Noted Time PHQ-9 Depression Total Score: 9 03/02/20 16 7:16 AM CDT documented as of this encounter Care Teams Harp Maker Relationship Specialty Start Date End Date Jairo Vasquez MD PCP - General Family Medicine - Sports Medicine 12/29/15 Kylee Dailey MD 6 [facility] 2A [place] [address] Internal Medicine 04/01/17 Kayode Ivey MD 6 [place] [address] Gastroenterology 04/01/17 Nicolasa Perez APRN DISTRIBUTION CENTER ASSISTANT [address] [place] [id number] [address] Nurse Practitioner Nurse Practitioner 04/28/17 Srinivas Stern PA-C [address] [place] [address] Physician It Program Engagement Director Physician It Program Engagement Director 10/02/18 Srinivas Stern PA-C [address] [place] [address] Assigned Gastroenterology Provider 07/17/22 Bandar Casas RPH [address] [address] Pharmacist Pharmacist 08/18/23 Bandar Casas RPH [address] 657905 Assigned MTM Pharmacist 08/27/23 Ayana Zhnag PA-C 5[address] [place] [address] Physician It Program Engagement Director Rheumatology 04/16/24 Srinivas Stern PA-C 909 [place] [address] Home Infusion Following Provider Gastroenterology 07/11/24 10/05/24 documented as of this encounter
--- OUTSIDE RECORDS SUMMARY | 2025-01-15 17:29 | XMS_ITS | Encounter Summary ---
Author Organization [place] Address [address] [place] [address] Care Team Providers Care Fabric Pattern Grader Name Role Phone Jairo Vasquez MD Primary Care Provider Kylee Dailey MD Unavailable + Kayode Ivey MD Unavailable [phone] Nicolasa Perez APRN WET ROASTER Unavaila ble Srinivas Stern PA-C Unavailable [phone] Srinivas Stern PA-C Unavailable [phone] Bandar Casas [facility] Unavailable Bandar Casas [facility] Unavailable [phone] Ayana Zhang PA-C Unavailable Srinivas Stern PA-C Unavailable [phone] Encounter Details Date Type Department Care Team (Late st Contact Info) Description 05/17/2024 [facility] Gastroenterology Clinic [address] [place] [address] Srinivas Stern PA-C 9[address] [place] [address] Social History Tobacco Use Types [...] on file 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 Gender Identity Not on file Sexual Orientation Not on file 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 Plan of Treatment Upcoming Encounters Date Type Department Care Team (Latest Contact Info) Description 02/13/2025 3:20 PM CDT Appointment [facility] Imaging [address] [facility] [address] [place] [address] Kayode Ivey MD [address] [place] [address] 03/07/2025 3:00 PM CDT Ancillary Procedure [address] [place] [address] Srinivas Stern PA-C [address] [place] [address] 04/24/2025 2:40 PM CDT Virtual Visit [facility] Gastroenterology Clinic [address] [place] [address] Alexis Torres MD 420 [place], [place] [phone] Srinivas Stern PA-C [address] [place] [address] 06/05/2025 3:30 PM CDT Virtual Visit [facility] GI [address] [phone] Kayode Ivey MD [address] [place] [address] Bandar Casas, RPH 420 [facility] 812 [place] [address] documented as of this encounter Visit Diagnoses Not on filedocumented in this encounter Additional Health Concerns Infection Onset Date Last Indicated Resolved Time MRSA-Contact Isolation Comment:MRSA hx per [facility] right wrist, chest, and elbow 02/17/2016 02/17/2016 Rule Out C-difficile 09/03/2024 09/04/2024 025 12:45 PM DOOR TENDER Assessment Noted Time PHQ-9 Depression Total Score: 9 03/02/20 16 7:16 AM CDT documented as of this encounter Care Teams Fabric Pattern Grader Relationship Specialty Start Date End Date Jairo Vasquez MD PCP - General Family Medicine - Sports Medicine 12/29/15 Kylee Dailey MD 6 [facility] 2A [place] [address] Internal Medicine 04/01/17 Kayode Ivey MD 6 [place] [address] Gastroenterology 04/01/17 Nicolasa Perez APRN WET ROASTER [address] [place] [address] [address] Nurse Practitioner Nurse Practitioner 04/28/17 Srinivas Stern PA-C [address] [place] [address] Physician Truck Crane Operator Helper Physician Truck Crane Operator Helper 10/02/18 Srinivas Stern PA-C 909 [place] [address] Assigned Gastroenterology Provider 07/17/22 Bandar Casas RPH [address] 948965 Pharmacist Pharmacist 08/18/23 Bandar Casas RPH [address] [id number] Assigned MTM Pharmacist 08/27/23 Ayaan Zhang PA-C 5200 [place] [address] Physician Truck Crane Operator Helper Rheumatology 04/16/24 Srinivas Stern PA-C 909 [place] [address] Home Infusion Following Provider Gastroenterology 07/11/24 10/05/24 documented as of this encounter
--- OUTSIDE RECORDS SUMMARY | 2025-01-15 17:29 | XMS_ITS | Encounter Summary ---
Author Organization [place] Address [address] [place] [address] Care Team Providers Care Compensation And Benefits Analyst Name Role Phone Jairo Vasquez MD Primary Care Provider [phone] Kylee Dailey MD Unavailable + Kayode Ivey MD Unavailable [phone] Nicolasa Perez APRN HUMAN RESOURCES BENEFITS MANAGER Unavaila ble Srinivas Stern PA-C Unavailable [phone] Srinivas Stern PA-C Unavailable [phone] Violet Ta [facility] Unavailable [phone] Sue Mckeon [facility] Unavailable [phone] Karen Trinh MD Unavailable [phone] Violet Ta [facility] Unavailable [phone] Violet Ta [facility] Unavailable [phone] Srinivas Stern PA-C Unavailable [phone] Bandar Casas [facility] Unavailable [phone] Bandar Casas [facility] Unavailable [phone] Ayana Zhang PA-C Unavailable [phone] Srinivas Stren PA-C Unavailable [phone] Encounter Details Date Type Department Care Team (Late st Contact Info) Description 09/16/2020 [facility] Gastroenterology Clinic [address] [phone] Blanca Menezes, RN Social History Tobacco Use Types Packs/Day Years Used Date Smoking Tobacco: Never Smokeless Tobacco: Never Alcohol Use Standard Drinks/Week Comments Yes 13 (1 standard drink = 0.6 oz pu re alcohol) MONTHLY PHQ-2 Answer Date Recorded PHQ-2 Score 2 08/20/2019 Sex and Gender Information Value Date Recorded Sex Assigned at Not on file 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 Gender Identity Not on file Sexual Orientation Not on file 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 Plan of Treatment Upcoming Encounters Date Type Department Care Team (Latest Contact Info) Description 02/13/2025 3:20 PM CDT Appointment [facility] Imaging [address] [facility] [address] [place] [phone] Kayode Ivey MD [address] [place], [place] [address] 03/07/2025 3:00 PM CDT Ancillary Procedure [address] [place] [address] Srinivas Stern PA-C [address] [place] [address] 04/24/2025 2:40 PM CDT Virtual Visit [facility] Gastroenterology Clinic [address] [phone] Alexis Torres MD 420 [place], [place] 9[address] Srinivas Stern PA-C [address] [place] [address] 06/05/2025 3:30 PM CDT Virtual Visit [facility] MTM [address] [facility] [address] [place] [address] Kayode Ivey MD [address] [place], [place] 7[address]85 Bandar Casas, [facility] 420 [facility] 812 [place], [place] 1904[address] documented as of this encounter Visit Diagnoses Not on filedocumented in this encounter Additional Health Concerns Infection Onset Date Last Indicated Resolved Time MRSA-Contact Isolation Comment:MRSA hx per [facility] right wrist, chest, and elbow 02/17/2016 02/17/2016 Rule Out C-difficile 10/04/2023 10/05/2023 024 7:28 PM CHEST PAINTING AND SEALING SUPERVISOR C-difficile 10/05/2023 10/05/2023 11/04/2023 11:3 9 PM CHEST PAINTING AND SEALING SUPERVISOR Rule Out C-difficile 09/03/2024 09/04/2024 025 12:45 PM CHEST PAINTING AND SEALING SUPERVISOR Assessment Noted Time PHQ-9 Depression Total Score: 9 03/02/20 16 7:16 AM CDT documented as of this encounter Care Teams Compensation And Benefits Analyst Relationship Specialty Start Date End Date Jairo Vasquez MD PCP - General Family Medicine - Sports Medicine 12/29/15 Kylee Dailey MD [address] [place] [address] [address] [place], [place] 598735 Internal Medicine 04/01/17 Kayode Ivey MD [address] [place] [address] 352575 Gastroenterology 04/01/17 Nicolasa Perez APRN HUMAN RESOURCES BENEFITS MANAGER [address] [place] [address] [id number] [place] [address] Nurse Practitioner Nurse Practitioner 04/28/17 Srinivas Stern PA-C [address] [place] [address] Physician Multimedia Engineer Physician Multimedia Engineer 10/02/18 Srinivas Stern PA-C [address] [place] [address] [id number] Assigned Heart and Vascular Provider 11/19/20 06/27/21 Violet Ta, [facility] [address] [place] [address] Pharmacist Pharmacist 12/29/20 02/08/21 Sue Mckeon [facility] [address] [place] [address] Pharmacist Pharmacist Skidder Driver 02/09/21 06/29/22 Karen Trinh MD [address] [place] [address] Assigned Infectious Disease Provider 02/08/21 07/30/22 Violet Ta, [facility] [address] [place] [address] Assigned MTM Pharmacist 02/27/22 05/21/22 Violet Ta, [facility] [address] [place] [address] Assigned MTM Pharmacist 06/02/22 07/09/22 Srinivas Stern PA-C [address] [place] [address] [id number] Assigned Gastroenterology Provider 07/17/22 Bandar Casas RPH [address] [place] [address] [phone] Pharmacist Pharmacist 08/18/23 Bandar Casas RPH [address] [place] [address] [id number] Assigned MTM Pharmacist 08/27/23 Ayana Zhang PA-C [address] [place] [address] Physician Multimedia Engineer Rheumatology 04/16/24 Srinivas Stern PA-C [address] [place] [address] [phone] Home Infusion Following Provider Gastroenterology 07/11/24 10/05/24 documented as of this encounter
--- OUTSIDE RECORDS SUMMARY | 2025-01-15 17:29 | XMS_ITS | Encounter Summary ---
Author Organization [place] Address [address] [place] [address] Care Team Providers Care Oncology Rep Name Role Phone Jairo Vasquez MD Primary Care Provider [phone] Kylee Dailey MD Unavailable + Kayode Ivey MD Unavailable [phone] Nicolasa Perez APRN MOBILE DESIGNER Unavaila ble Loyda Dickey RN Unavailable +[phone] Srinivas Stern PA-C Unavailable +[phone] Srinivas Stern PA-C Unavailable +[phone] Violet Ta [facility] Unavailable +[phone] Sue Mckeon [facility] Unavailable +[phone] Karen Trinh MD Unavailable +[phone] Violet Ta [facility] Unavailable +[phone] Violet Ta [facility] Unavailable +[phone] Srinivas Stern PA-C Unavailable +[phone] Bandar Casas [facility] Unavailable +[phone] Bandar Casas [facility] Unavailable Ayana Zhang PA-C Unavailable [phone] Srinivas Stern PA-C Unavailable Encounter Details Date Type Department Care Team (Late st Contact Info) Description 03/26/2018 MyC Medical Advice [facility] [address] [place] [address] Kayode Ivey MD 6 [place], [place] 836345 Social History Tobacco Use Types Packs/Day Years Used Date Smoking Tobacco: Never Smokeless Tobacco: Never Alcohol Use Standard Drinks/Week Comments Yes 13 (1 standard drink = 0.6 oz pu re alcohol) MONTHLY Sex and Gender Information Value Date Recorded Sex Assigned at Not on file Legal Sex Male 2:58 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 MAP 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 Gender Identity Not on file Sexual Orientation Not on file 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 Plan of Treatment Upcoming Encounters Date Type Department Care Team (Latest Contact Info) Description 02/13/2025 3:20 PM CDT Appointment [facility] Center Imaging [address] [facility] [address] [place] [phone] Kayode Ivey MD 6 [place] [address] 03/07/2025 3:00 PM CDT Ancillary Procedure [address] [place] [address] Srinivas Stern PA-C 9 [place], [place] 72[address] 04/24/2025 2:40 PM CDT Virtual Visit [facility] [address] [address] Alexis Torres MD 420 [place] [address] Srinivas Stern PA-C 909 [place], [place] [phone] 06/05/2025 3:30 PM CDT Virtual Visit Viola [facility] 909 [facility] 2nd [place] [phone] Kayode Ivey MD 516 [place] [address] Bandar Casas, [facility] 420 [facility] 812 [place] [address] documented as of this encounter Visit Diagnoses Not on filedocumented in this encounter Additional Health Concerns Infection Onset Date Last Indicated Resolved Time MRSA-Contact Isolation Comment:MRSA hx per [facility] right wrist, chest, and elbow 02/17/2016 02/17/2016 Rule Out C-difficile 10/04/2023 10/05/2023 024 7:28 PM STEREO MAP 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 C-difficile 10/05/2023 10/05/2023 11/04/2023 11:3 9 PM STEREO MAP 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 Rule Out C-difficile 09/03/2024 09/04/2024 025 12:45 PM STEREO MAP 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 Assessment Noted Time PHQ-9 Depression Total Score: 9 03/02/20 16 7:16 AM CDT documented as of this encounter Care Teams Oncology Rep Relationship Specialty Start Date End Date Jairo Vasquez MD PCP - General Family Medicine - Sports Medicine 12/29/15 Kylee Dailey MD [address] [place] [address] 2A [place], [place] [phone] Internal Medicine 04/01/17 Kayode Ivey MD [address] [place] [address] Gastroenterology 04/01/17 Nicolasa Perez APRN MOBILE DESIGNER [address] [place] [address] [id number] [place], [place] [phone] Nurse Practitioner Nurse Practitioner 04/28/17 Loyda Dickey RN Nurse Coordinator Neurology 05/26/17 02/26/19 Srinivas Stern PA-C [address] [place] [address] Physician Brand Specialist Physician Brand Specialist 10/02/18 Srinivas Stern PA-C [address] [place] [address] Assigned Heart and Vascular Provider 11/19/20 06/27/21 Violet Ta [facility] [address] [place] [address] Pharmacist Pharmacist 12/29/20 02/08/21 Sue Mckeon [facility] [address] [place] [address] 668405 Pharmacist Pharmacist Information Technology Administrator 02/09/21 06/29/22 Karen Trinh MD [address] [place] [address] [phone] Assigned Infectious Disease Provider 02/08/21 07/30/22 Violet Ta [facility] [address] [place] [address] 96 [place], [place] [phone] Assigned MTM Pharmacist 02/27/22 05/21/22 Violet Ta [facility] 480 [facility] [address] [place] [address] Assigned MTM Pharmacist 06/02/22 07/09/22 Srinivas Stern PA-C [address] [place] [address] Assigned Gastroenterology Provider 07/17/22 Bandar Casas RPH 420 [facility] 812 [place] [address] Pharmacist Pharmacist 08/18/23 Bandar Casas RP [address] [address] Assigned MTM Pharmacist 08/27/23 Ayana Zhang PA-C [address] [place] [address] Physician Brand Specialist Rheumatology 04/16/24 Srinivas Stern PA-C 909 [place] [address] Home Infusion Following Provider Gastroenterology 07/11/24 10/05/24 documented as of this encounter
--- OUTSIDE RECORDS SUMMARY | 2025-01-15 17:29 | XMS_ITS | Encounter Summary ---
Author Organization [place] Address [address] [place] [address] Care Team Providers Care Concrete Conveyor Operator Name Role Phone Jairo Vasquez MD Primary Care Provider [phone] Kylee Dailey MD Unavailable + Kayode Ivey MD Unavailable [phone] Nicolasa Perez APRN MANAGER LIFE Unavaila ble Srinivas Stern PA-C Unavailable +[phone] Srinivas Stern PA-C Unavailable +[phone] Violet Ta [facility] Unavailable +[phone] Sue Mckeon [facility] Unavailable [phone] Karen Trinh MD Unavailable [phone] Violet Ta [facility] Unavailable +[phone] Violet Ta [facility] Unavailable +[phone] Srinivas Stern PA-C Unavailable +[phone] Bandar Casas [facility] Unavailable +[phone] Bandar Casas [facility] Unavailable +[phone] Ayana Zhang PA-C Unavailable [phone] Srinivas Stern PA-C Unavailable [phone] Encounter Details Date Type Department Care Team (Late st Contact Info) Description 10/14/2020 MyC Medical Advice [facility] [address] [phone] Blanca Menezes, RN Social History Tobacco Use Types Packs/Day Years Used Date Smoking Tobacco: Never Smokeless Tobacco: Never Alcohol Use Standard Drinks/Week Comments Yes 13 (1 standard drink = 0.6 oz pu re alcohol) MONTHLY PHQ-2 Answer Date Recorded PHQ-2 Score 2 08/20/2019 Sex and Gender Information Value Date Recorded Sex Assigned at Not on file 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 No / Unsure 10/16/2020 6:07 PM RACK CLEANER documented as of this encounter Plan of Treatment Upcoming Encounters Date Type Department Care Team (Latest Contact Info) Description 02/13/2025 3:20 PM CDT Appointment [facility] Imaging [address] [facility] [address] [place] [address] Kayode Ivey MD 6 [place], [place] [address] 03/07/2025 3:00 PM CDT Ancillary Procedure [address] [place] [address] Srinivas Stern PA-C 9 [place] [address] 04/24/2025 2:40 PM CDT Virtual Visit [facility] [address] [phone] Alexis Torres MD 420 [place] [address] Srinivas Stern PA-C 909 [place], [place] 114385 06/05/2025 3:30 PM CDT Virtual Visit [facility] David [facility] 909 [facility] 2nd [place] [phone] Kayode Ivey MD 516 [place], [place] [phone] Bandar Casas, [facility] 420 [facility] 812 [place], [place] 083845 documented as of this encounter Visit Diagnoses Not on filedocumented in this encounter Additional Health Concerns Infection Onset Date Last Indicated Resolved Time MRSA-Contact Isolation Comment:MRSA hx per [facility] right wrist, chest, and elbow 02/17/2016 02/17/2016 Rule Out C-difficile 10/04/2023 10/05/2023 024 7:28 PM RACK CLEANER C-difficile 10/05/2023 10/05/2023 11/04/2023 11:3 9 PM RACK CLEANER Rule Out C-difficile 09/03/2024 09/04/2024 025 12:45 PM RACK CLEANER Assessment Noted Time PHQ-9 Depression Total Score: 9 03/02/20 16 7:16 AM CDT documented as of this encounter Care Teams Concrete Conveyor Operator Relationship Specialty Start Date End Date Jairo Vasquez MD PCP - General Family Medicine - Sports Medicine 12/29/15 Kylee Dailey MD [address] [place] [address] 2A [place] [address] Internal Medicine 04/01/17 Kayode Ivey MD [address] [place] [address] Gastroenterology 04/01/17 Nicolasa Perez APRN MANAGER LIFE [address] [place] [address] [id number] [place] [address] Nurse Practitioner Nurse Practitioner 04/28/17 Srinivas Stern PA-C [address] [place] [address] Physician Accounting Office Manager Physician Accounting Office Manager 10/02/18 Srinivas Stern PA-C [address] [place] [address] Assigned Heart and Vascular Provider 11/19/20 06/27/21 Violet Ta, [facility] [address] [place] [address] Pharmacist Pharmacist 12/29/20 02/08/21 Sue Mckeon [facility] [address] [place] [address] Pharmacist Pharmacist Nuclear Weapons Specialist 02/09/21 06/29/22 Karen Trinh MD [address] [place] [address] Assigned Infectious Disease Provider 02/08/21 07/30/22 Violet Ta, [facility] 480 [facility] [address] [place] [address] Assigned MTM Pharmacist 02/27/22 05/21/22 Violet Ta [facility] 480 [facility] [address] [place] [address] Assigned MTM Pharmacist 06/02/22 07/09/22 Srinivas Stern PA-C 909 [place] [address] Assigned Gastroenterology Provider 07/17/22 Bandar Casas [facility] [address] [phone] Pharmacist Pharmacist 08/18/23 Bandar Casas [facility] [address] 444155 Assigned MTM Pharmacist 08/27/23 Ayana Zhang PA-C 5200 [place] [address] Physician Accounting Office Manager Rheumatology 04/16/24 Srinivas Stern PA-C 909 [place], [place] 899285 Home Infusion Following Provider Gastroenterology 07/11/24 10/05/24 documented as of this encounter
--- OUTSIDE RECORDS SUMMARY | 2025-01-15 17:29 | XMS_ITS | Encounter Summary ---
Author Organization [place] Address [address] [place] [address] Care Team Providers Care Health Plan Manager Name Role Phone Jairo Vasquez MD Primary Care Provider [phone] Kylee Dailey MD Unavailable + Kayode Ivey MD Unavailable [phone] Nicolasa Perez APRN SENIOR RISK ANALYST Unavaila ble Srinivas Stern-C Unavailable [phone] Srinivas Stern-C Unavailable [phone] Bandar Casas [facility] Unavailable Bandar Casas [facility] Unavailable Ayana Zhang-C Unavailable Srinivas Stern-C Unavailable [phone] Reason for Visit * Reason Onset Date Comments Prior Auth - Medication 07/09/2024 budesoni de (ENTOCORT EC) 3 MG EC capsule Encounter Details Date Type Department Care Team (Late st Contact Info) Description 07/09/2024 Telephone [facility]astro[facility]ology [facility] [place] [phone] [facility] [address]th [place] [address] Anette Triana RN Prior Auth [...] on file 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 Gender Identity Not on file Sexual Orientation Not on file 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 ER HARVESTER OPERATOR documented in this encounter Plan of Treatment Upcoming Encounters Date Type Department Care Team (Latest Contact Info) Description 02/13/2025 3:20 PM CDT Appointment [facility] Imaging [address] [facility] [address] [place] [phone] Kayode Ivey MD [address] [place] [phone] 03/07/2025 3:00 PM CDT Ancillary Procedure [address] [place] [address] Srinivas Stern PA-C [address] [place] [address] 04/24/2025 2:40 PM CDT Virtual Visit [facility] [address] [place] [phone] Alexis Torres MD 420 [place], [place] 0[address]105 Srinivas Stern PA-C [address] [place] [address] 511135 06/05/2025 3:30 PM CDT Virtual Visit [facility] GI [address]nd [place] [phone] Kayode Ivey MD 6 [place], [place] 7[address]65 Bandar Casas [place] 420 [facility] 812 [place], [place] 922785 documented as of this encounter Visit Diagnoses Not on filedocumented in this encounter Additional Health Concerns Infection Onset Date Last Indicated Resolved Time MRSA-Contact Isolation Comment:MRSA hx per [facility] right wrist, chest, and elbow 02/17/2016 02/17/2016 Rule Out C-difficile 09/03/2024 09/04/2024 025 12:45 PM TIMBER HARVESTER OPERATOR Assessment Noted Time PHQ-9 Depression Total Score: 9 03/02/20 16 7:16 AM CDT documented as of this encounter Care Teams Health Plan Manager Relationship Specialty Start Date End Date Jairo Vasquez MD PCP - General Family Medicine - Sports Medicine 12/29/15 Kylee Dailey MD [address] [place] [address] [address] [place], [place] 640[address] Internal Medicine 04/01/17 Kayode Ivey MD [address] [place] [address] 996955 Gastroenterology 04/01/17 Nicolasa Perez APRN SENIOR RISK ANALYST [address] [place] [address] [id number] [place], [place] 155025 Nurse Practitioner Nurse Practitioner 04/28/17 Srinivas Stern PA-C [address] [place] [address] 014565 Physician Graphics Software Engineer Physician Graphics Software Engineer 10/02/18 Srinivas Stern PA-C [address] [place] [address] 875415 Assigned Gastroenterology Provider 07/17/22 Bandar Casas RPH [address] [phone] Pharmacist Pharmacist 08/18/23 Bandar Casas RPH [address] [phone] Assigned MTM Pharmacist 08/27/23 Ayana Zhang PA-C [address] [place] [address] Physician Graphics Software Engineer Rheumatology 04/16/24 Srinivas Stern PA-C [address] [place] [address] [phone] Home Infusion Following Provider Gastroenterology 07/11/24 10/05/24 documented as of this encounter
--- OUTSIDE RECORDS SUMMARY | 2025-01-15 17:29 | XMS_ITS | Encounter Summary ---
Author Organization [place] Address [address] [place] [address] Care Team Providers Care Cribbing Setter Name Role Phone Jairo Vasquez MD Primary Care Provider [phone] Kylee Dailey MD Unavailable + Kayode Ivey MD Unavailable [phone] Nicolasa Perez APRN CRIBBING SETTER Unavaila ble Loyda Dickey RN Unavailable [phone] Srinivas Stern PA-C Unavailable [phone] Srinivas Stern PA-C Unavailable +[phone] Violet Ta [facility] Unavailable +[phone] Sue Mckeon [facility] Unavailable [phone] Karen Trinh MD Unavailable +[phone] Violet Ta [facility] Unavailable [phone] Violet Ta [facility] Unavailable [phone] Srinivas Stern PA-C Unavailable +[phone] Bandar Casas [facility] Unavailable [phone] Bandar Casas [facility] Unavailable Ayana Zhang PA-C Unavailable [phone] Srinivas Stern PA-C Unavailable [phone] Encounter Details Date Type Department Care Team (Late st Contact Info) Description 01/17/2019 MyC Medical Advice [facility] [address] [place] [address] Kayode Ivey MD 6 [place] [address] Social History Tobacco Use Types Packs/Day Years Used Date Smoking Tobacco: Never Smokeless Tobacco: Never Alcohol Use Standard Drinks/Week Comments Yes 13 (1 standard drink = 0.6 oz pu re alcohol) MONTHLY Sex and Gender Information Value Date Recorded Sex Assigned at Not on file Legal Sex Male 2:58 AM CHUCK WAGON COOK Gender Identity Not on file Sexual Orientation Not on file 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 Plan of Treatment Upcoming Encounters Date Type Department Care Team (Latest Contact Info) Description 02/13/2025 3:20 PM CDT Appointment [facility] Center Imaging [address] [facility] [address] [place] [phone] Kayode Ivey MD 6 [place] [address] 03/07/2025 3:00 PM CDT Ancillary Procedure [address] [place] [address] Srinivas Stern PA-C 9 [place], [place] 185145 04/24/2025 2:40 PM CDT Virtual Visit [facility] [address] [address] Alexis Torres MD 420 [place] [address] Srinivas Stern PA-C 909 [place], [place] [phone] 06/05/2025 3:30 PM CDT Virtual Visit Viola [facility] 909 [facility] 2nd [place] [phone] Kayode Ivey MD 516 [place] [address] Bandar Casas, [facility] 420 [facility] 812 [place] [address] documented as of this encounter Visit Diagnoses Not on filedocumented in this encounter Additional Health Concerns Infection Onset Date Last Indicated Resolved Time MRSA-Contact Isolation Comment:MRSA hx per [facility] right wrist, chest, and elbow 02/17/2016 02/17/2016 Rule Out C-difficile 10/04/2023 10/05/2023 024 7:28 PM CHUCK WAGON COOK C-difficile 10/05/2023 10/05/2023 11/04/2023 11:3 9 PM CHUCK WAGON COOK [place] Out C-difficile 09/03/2024 09/04/2024 025 12:45 PM CHUCK WAGON COOK Assessment Noted Time PHQ-9 Depression Total Score: 9 03/02/20 16 7:16 AM CDT documented as of this encounter Care Teams Cribbing Setter Relationship Specialty Start Date End Date Jairo Vasquez MD PCP - General Family Medicine - Sports Medicine 12/29/15 Kylee Dailey MD [address] [place] [address] 2A [place], [place] [phone] Internal Medicine 04/01/17 Kayode Ivey MD [address] [place] [address] Gastroenterology 04/01/17 Nicolasa Perez APRN CRIBBING SETTER [address] [place] [address] [id number] [place], [place] 376885 Nurse Practitioner Nurse Practitioner 04/28/17 Loyda Dickey RN Nurse Coordinator Neurology 05/26/17 02/26/19 Srinivas Stern PA-C [address] [place] [address] Physician Photography Spotter Physician Photography Spotter 10/02/18 Srinivas Stern PA-C [address] [place] [address] Assigned Heart and Vascular Provider 11/19/20 06/27/21 Violet Ta [facility] [address] [place] [address] Pharmacist Pharmacist 12/29/20 02/08/21 Sue Mckeon [facility] [address] [place] [address] [phone] Pharmacist Pharmacist Engineering And Development Director 02/09/21 06/29/22 Karen Trinh MD [address] [place] [address] [phone] Assigned Infectious Disease Provider 02/08/21 07/30/22 Violet Ta [facility] [address] [place] [address] 96 [place], [place] [phone] Assigned MTM Pharmacist 02/27/22 05/21/22 Violet Ta [facility] 480 [facility] 96 [place] [address] Assigned MTM Pharmacist 06/02/22 07/09/22 Srinivas Stern PA-C [address] [place] [address] Assigned Gastroenterology Provider 07/17/22 Bandar Casas [facility] 420 [facility] 812 [place] [address] Pharmacist Pharmacist 08/18/23 Bandar Casas RP [address] [address] Assigned MTM Pharmacist 08/27/23 Ayana Zhang PA-C [address] [place] [address] Physician Photography Spotter Rheumatology 04/16/24 Srinivas Stern PA-C 909 [place] [address] Home Infusion Following Provider Gastroenterology 07/11/24 10/05/24 documented as of this encounter
--- OUTSIDE RECORDS SUMMARY | 2025-01-15 17:29 | XMS_ITS | Encounter Summary ---
Author Organization [place] Address [address] [place] [address]. [place] [address] Care Team Providers Care Lead Slot Technician Name Role Phone Jairo Vasquez MD Primary Care Provider [phone] Kylee Dailey MD Unavailable + Kayode Ivey MD Unavailable [phone] Nicolasa Perez APRN SUPERVISOR SMALL APPLIANCE ASSEMBLY Unavaila ble Srinivas Stern-C Unavailable [phone] Srinivas Stern-C Unavailable Bandar Casas [facility] Unavailable Bandar Casas [facility] Unavailable [phone] Ayana Zhang-C Unavailable Srinivas Stern-C Unavailable [phone] Encounter Details Date Type Department Care Team (Late st Contact Info) Description 08/20/2024 Home Infusion [facility] [address] [place] [address] Ayana Brandon RN Ulcerative colitis with rectal bleeding, unspecified location [...] on file Legal Sex Male 2:58 AM AEROSPACE ASSEMBLER Gender Identity Not on file Sexual Orientation Not on file 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 Plan of Treatment Upcoming Encounters Date Type Department Care Team (Latest Contact Info) Description 02/13/2025 3:20 PM CDT Appointment [facility] [address] [place] [phone] Kayode Ivey MD [address] [place] [address] [id number] 03/07/2025 3:00 PM CDT Ancillary Procedure [address] [place] [address] Srinivas Stern PA-C [address] [place] [address] 929705 04/24/2025 2:40 PM CDT Virtual Visit [facility] G[facility]ology [facility] [address] [place] [phone] Alexis Torres MD 420 [place], [place] 129825 Srinivas Stern PA-C [address] [place] [address] 919665 06/05/2025 3:30 PM CDT Virtual Visit [facility] GI [address] [phone] Kayode Ivey MD [address] [place] [address] [id number] Bandar Casas [facility] 420 [facility] 812 [place] [address] documented as of this encounter Visit Diagnoses Diagnosis Ulcerative colitis with rectal bleeding, unspecified location (H)- Primary documented in this encounter Additional Health Concerns Infection Onset Date Last Indicated Resolved Time MRSA-Contact Isolation Comment:MRSA hx per [facility] right wrist, chest, and elbow 02/17/2016 02/17/2016 Rule Out C-difficile 09/03/2024 09/04/2024 025 12:45 PM AEROSPACE ASSEMBLER Assessment Noted Time PHQ-9 Depression Total Score: 9 03/02/20 16 7:16 AM CDT documented as of this encounter Care Teams Lead Slot Technician Relationship Specialty Start Date End Date Jairo Vasquez MD PCP - General Family Medicine - Sports Medicine 12/29/15 Kylee Dailey MD [address] [place] [address] [address] [place] [address] Internal Medicine 04/01/17 Kayode Ivey MD [address] [place] [address] Gastroenterology 04/01/17 Nicolasa Perez APRN SUPERVISOR SMALL APPLIANCE ASSEMBLY [address] [place], [place] [address] [address] Nurse Practitioner Nurse Practitioner 04/28/17 Srinivas Stern PA-C [address] [place] [address] Physician Hydrate Thickener Operator Physician Hydrate Thickener Operator 10/02/18 Srinivas Stern PA-C [address] [place] [address] Assigned Gastroenterology Provider 07/17/22 Bandar Casas RPH [address] [address] Pharmacist Pharmacist 08/18/23 Bandar Casas RPH [address] 468005 Assigned MTM Pharmacist 08/27/23 Ayana Zhang PA-C 5200 [place] [address] Physician Hydrate Thickener Operator Rheumatology 04/16/24 Srinivas Stern PA-C 909 [place] [address] Home Infusion Following Provider Gastroenterology 07/11/24 10/05/24 documented as of this encounter
--- OUTSIDE RECORDS SUMMARY | 2025-01-15 17:29 | XMS_ITS | Encounter Summary ---
Author Organization [place] Address [address] [place] [address] Care Team Providers Care Manager Applied Name Role Phone Jairo Vasquez MD Primary Care Provider [phone] Kylee Dailey MD Unavailable + Kayode Ivey MD Unavailable [phone] Nicolasa Perez APRN NURSE EXTERN Unavaila ble Srinivas Stern PA-C Unavailable [phone] Sue Mckeon [facility] Unavailable [phone] Karen Trinh MD Unavailable [phone] Violet Ta [facility] Unavailable Violet Ta [facility] Unavailable Srinivas Stern PA-C Unavailable [phone] Bandar Casas [facility] Unavailable [phone] Bandar Casas [facility] Unavailable Ayana Zhang PA-C Unavailable Srinivas Stern PA-C Unavailable [phone] Encounter Details Date Type Department Care Team (Late st Contact Info) Description 05/13/2022 [facility]ology Clinic [address] [place] [address] Jimbo [place], RN Social History Tobacco Use Types Packs/Day Years Used Date Smoking Tobacco: Never Smokeless Tobacco: Never Alcohol Use Standard Drinks/Week Comments Yes 13 (1 standard drink = 0.6 oz pu re alcohol) MONTHLY PHQ-2 Answer Date Recorded PHQ-2 Score 0 01/19/2022 Sex and Gender Information Value Date Recorded Sex Assigned at Not on file Legal Sex Male 2:58 AM SALES PROJECT MANAGER Gender Identity Not on file Sexual [...] Info) Description 02/13/2025 3:20 PM CDT Appointment [facility] [address] [facility] [address] [place] [phone] Kayode Ivey MD [address] [place] [address] 03/07/2025 3:00 PM CDT Ancillary Procedure [address] [place] [address] Srinivas tSern PA-C [address] [place] [address] 04/24/2025 2:40 PM CDT Virtual Visit [facility] Gastroenterology Clinic [address] 4th [place] [address] Alexis Torres MD 420 [place], [place] [phone] Srinivas Stern PA-C [address] [place] [address] 06/05/2025 3:30 PM CDT Virtual Visit [facility] MTM [address] [facility] [address] 2nd [place] [address] Kayode Ivey MD 516 [place], [place] 063065 Bandar Casas, [facility] 420 [facility] 812 [place], [place] 0127[address] documented as of this encounter Visit Diagnoses Not on filedocumented in this encounter Additional Health Concerns Infection Onset Date Last Indicated Resolved Time MRSA-Contact Isolation Comment:MRSA hx per [facility] right wrist, chest, and elbow 02/17/2016 02/17/2016 Rule Out C-difficile 10/04/2023 10/05/2023 024 7:28 PM SALES PROJECT MANAGER C-difficile 10/05/2023 10/05/2023 11/04/2023 11:3 9 PM SALES PROJECT MANAGER Rule Out C-difficile 09/03/2024 09/04/2024 025 12:45 PM SALES PROJECT MANAGER Assessment Noted Time PHQ-9 Depression Total Score: 9 03/02/20 16 7:16 AM CDT documented as of this encounter Care Teams Manager Applied Relationship Specialty Start Date End Date Jairo Vasquez MD PCP - General Family Medicine - Sports Medicine 12/29/15 Kylee Dailey MD [address] [place] [address] [address] [place], [place] 773685 Internal Medicine 04/01/17 Kayode Ivey MD [address] [place] [address] 873685 Gastroenterology 04/01/17 Nicolasa Perez APRN NURSE EXTERN 9 [facility] [id number] [place] [address] Nurse Practitioner Nurse Practitioner 04/28/17 Srinivas Stern PA-C [address] [place] [address] Physician Finishing Machine Tender Physician Finishing Machine Tender 10/02/18 Sue Mckeon, [facility] [address] [place] [address] Pharmacist Pharmacist Global Cto 02/09/21 06/29/22 Karen Trinh MD [address] [place] [address] 015255 Assigned Infectious Disease Provider 02/08/21 07/30/22 Violet Ta, [facility] 480 [facility] [address] [place] [address] Assigned MTM Pharmacist 02/27/22 05/21/22 Violet Ta [facility] [address] [place] [address] Assigned MTM Pharmacist 06/02/22 07/09/22 Srinivas Stern PA-C [address] [place] [address] Assigned Gastroenterology Provider 07/17/22 Bandar Casas [facility] [address] [facility] [address]12 [place] [address] Pharmacist Pharmacist 08/18/23 Bandar Casas RPH 420 [facility] 812 [place] [address] Assigned MTM Pharmacist 08/27/23 Ayana Zhang PA-C 5200 [place] [address] Physician Finishing Machine Tender Rheumatology 04/16/24 Srinivas Stern PA-C 909 [place] [address] Home Infusion Following Provider Gastroenterology 07/11/24 10/05/24 documented as of this encounter
--- OUTSIDE RECORDS SUMMARY | 2025-01-15 17:29 | XMS_ITS | Encounter Summary ---
Author Organization [place] Address [address] [place] [address] Care Team Providers Care Eco Industrial Development Consultant Name Role Phone Jairo Vasquez MD Primary Care Provider [phone] Kylee Dailey MD Unavailable + Kayode Ivey MD Unavailable [phone] Nicolasa Perez APRN BAND LINING BANDER Unavaila ble Srinivas Stern PA-C Unavailable [phone] Srinivas Stern PA-C Unavailable [phone] Violet Ta [facility] Unavailable [phone] Sue Mckeon [facility] Unavailable [phone] Karen Trinh MD Unavailable [phone] Violet Ta [facility] Unavailable [phone] Violet Ta [facility] Unavailable [phone] Srinivas Stern PA-C Unavailable [phone] Bandar Casas [facility] Unavailable [phone] Bandar Casas [facility] Unavailable [phone] Ayana Zhang PA-C Unavailable [phone] Srinivas Stern PA-C Unavailable [phone] Encounter Details Date Type Department Care Team (Late st Contact Info) Description 02/07/2020 External Order Results [facility] Transplant Clinic [address] [place] [address] Outside, Provider Ulcerative colitis (H); Diarrhea Social History Tobacco Use Types Packs/Day Years Used Date Smoking Tobacco: Never Smokeless Tobacco: Never Alcohol Use Standard Drinks/Week Comments Yes 13 (1 standard drink = 0.6 oz pu re alcohol) MONTHLY PHQ-2 Answer Date Recorded PHQ-2 Score 2 08/20/2019 Sex and Gender Information Value Date Recorded Sex Assigned at Not on file Legal Sex Male 2:58 AM 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 SALES CONSULTANT Gender Identity Not on file Sexual Orientation Not on file 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 Plan of Treatment Upcoming Encounters Date Type Department Care Team (Latest Contact Info) Description 02/13/2025 3:20 PM CDT Appointment [facility] [address] [facility] [address] [place] [address] Kayode Ivey MD 6 [place], [place] [address] 03/07/2025 3:00 PM CDT Ancillary Procedure [address] [place] [address] Srinivas Stern PA-C [address] [place] [address] 757585 04/24/2025 2:40 PM CDT Virtual Visit [facility] Gastroenterology Clinic [address] 4th [place] [address] Alexis Torres MD 420 [place], [place] 7[address]265 Srinivas Stern PA-C [address] [place] [address] 441745 06/05/2025 3:30 PM CDT Virtual Visit [facility] GI MTM [address] [facility] [address] 2nd [place] [address] Kayode Ivey MD 516 [facility] [place], [place] [address] Bandar Casas, [facility] 420 [facility] 812 [place] [address] documented as of this encounter Procedures Procedure Name Priority Date/Time Associated Diagnosis Comments CBC WITH PLATELETS & DIFFERENTIAL Routine 02/07/2020 4:40 PM CDT Ulcerative colitis (H) Diarrhea HEPATIC FUNCTION PANEL Routine 0 4:40 PM CDT Ulcerative colitis (H) Diarrhea ERYTHROCYTE SEDIMENTATION RATE AUTO Routine 02/07/2020 4:40 PM CDT Ulcerative colitis (H) Diarrhea CRP INFLAMMATION Routine 02/07/2020 4:40 PM CDT Ulcerative colitis (H) Diarrhea documented in this encounter Results * (ABNORMAL) Hepatic panel (02/07/2020 4:40 PM CDT) Albumin (External) 4.5 3.5 - 5.2 g/dL LABDE SCAN Protein Total (External) 7.3 6.0 - 8.2 g/dL LABDE SCAN Bilirubin Total (External) 1.0 0.2 - 1.2 mg/dL LABDE SCAN Bilirubin Direct (External) 0.4 0.01 - 0.5 mg/dL LABDE SCAN Alk Phosphatase (External) 73 50 - 135 Iu/L LABDE SCAN ALT (External) 49(H) 8 - 45 Iu/L LABDE SCAN AST (External) 31 2 - 40 Iu/L LABDE SCAN Blood specimen (specimen) 02/07/2020 4:40 PM CDT Deja ANN PFT - 02/12/2020 10:49 AM CDT Verified by Ariella Carl on 02/12/2020. us Kayodemarquise Ivey MD LAB - BLOOD ORDERABLES Ed ited Result - Final BREEZE PFT LABDE SCAN * Erythrocyte sedimentation rate auto (02/07/2020 4:40 PM CDT) ESR (External) 6 <15 mm/hr LABDE SCAN Blood specimen (specimen) 02/07/2020 4:40 PM CDT Narrative B[facility]ZE PFT - 02/12/2020 10:49 AM CDT Verified by Ariella Carl on 02/12/2020. us Kayode Ivey MD LAB - BLOOD ORDERABLES Ed ited Result - Final [facility]REE[facility] PFT LABDE SCAN * (ABNORMAL) CBC with platelets differential (02/07/2020 4:40 PM CDT) WBC Count (External) 6.8 4.5 - 11 thou/cu mm LABDE SCAN RBC Count (External) 4.77 4.30 - 5.90 mil/cu mm LABDE SCAN Hemoglobin (External) 15.2 13.5 - 17.5 g/dL LABDE SCAN Hematocrit (External) 42.0 37.0 - 53.0 % LABDE SCAN MCV (External) 88 80 - 100 fL LABDE SCAN MCH (External) 31.9 26.0 - 34.0 pg LABDE SCAN MCHC (External) 36.2(H) 32.0 - 36.0 g/dL LABDE SCAN RDW (External) 13.3 11.5 - 15.5 % LABDE SCAN Platelet Count (External) 257 140 - 440 thou/cu mm LABDE SCAN % Neutrophils (External) 41.7 % LABDE SCAN % Lymphocytes (External) 47.2 % LABDE SCAN % Monocytes (External) 8.5 % LABDE SCAN % Eosinophils (External) 2.2 % LABDE SCAN % Basophils (External) 0.4 % LABDE SCAN Absolute Neutrophils (External) 2.8 1.7 - 7.0 thou/cu mm LABDE SCAN Absolute Lymphocytes (External) 3.2(H) 0.9 - 2.9 thou/cu mm LABDE SCAN Absolute Monocytes (External) 0.6 <0.9 thou/cu mm LABDE SCAN Absolute Eosinophils (External) 0.2 <0.5 thou/cu mm LABDE SCAN Absolute Basophils (External) 0.0 <0.3 thou/cu mm LABDE SCAN Blood specimen (specimen) 02/07/2020 4:40 PM CDT Narrative BREEZE PFT - 02/12/2020 10:49 AM CDT Verified by Ariella Carl on 02/12/2020. us Kayode Ivey MD LAB - BLOOD ORDERABLES Ed ited Result - Final BREEZE PFT LABDE SCAN * CRP inflammation (02/07/2020 4:40 PM CDT) CRP Inflammation (External) 0.37 <0.50 mg/dL LABDE SCAN Blood specimen (specimen) 02/07/2020 4:40 PM CDT Narrative BREEZE PFT - 02/12/2020 10:49 AM CDT Verified by Ariella Carl on 02/12/2020. us Kayode Ivey MD LAB - BLOOD ORDERABLES Ed ited Result - Final BREEZE PFT LABDE SCAN documented in this encounter Visit Diagnoses Diagnosis Ulcerative colitis (H) Ulcerative colitis, unspecified Diarrhea documented in this encounter Additional Health Concerns Infection Onset Date Last Indicated Resolved Time MRSA-Contact Isolation Comment:MRSA hx per [facility] right wrist, chest, and elbow 02/17/2016 02/17/2016 Rule Out C-difficile 10/04/2023 10/05/2023 024 7:28 PM COMMERCIAL SALES CONSULTANT C-difficile 10/05/2023 10/05/2023 11/04/2023 11:3 9 PM COMMERCIAL SALES CONSULTANT Rule Out C-difficile 09/03/2024 09/04/2024 025 12:45 PM COMMERCIAL SALES CONSULTANT Assessment Noted Time PHQ-9 Depression Total Score: 9 03/02/20 16 7:16 AM CDT documented as of this encounter Care Teams Eco Industrial Development Consultant Relationship Specialty Start Date End Date Jairo Vasquez MD PCP - General Family Medicine - Sports Medicine 12/29/15 Kylee Dailey MD [address] [place] [address] Internal Medicine 04/01/17 Kayode Ivey MD [address] [place] [address] Gastroenterology 04/01/17 Nicolasa Perez APRN BAND LINING BANDER [address] [place], [place] [address] [address] Nurse Practitioner Nurse Practitioner 04/28/17 Srinivas Stern PA-C [address] [place] [address] Physician Drawer In Jacquard Loom Physician Drawer In Jacquard Loom 10/02/18 Srinivas Stern PA-C [address] [place] [address] Assigned Heart and Vascular Provider 11/19/20 06/27/21 Violet Ta [facility] [address] [place] [address] Pharmacist Pharmacist 12/29/20 02/08/21 Sue Mckeon [facility] [address] [place] [address] [place] [address] Pharmacist Pharmacist Raw Scales Operator 02/09/21 06/29/22 Karen Trinh MD 9 [place] [address] Assigned Infectious Disease Provider 02/08/21 07/30/22 Violet Ta, [facility] [address] [place] [address] Assigned MTM Pharmacist 02/27/22 05/21/22 [facility] [address] [place] [address] Assigned MTM Pharmacist 06/02/22 07/09/22 Srinivas Stern PA-C [address] [place] [address] Assigned Gastroenterology Provider 07/17/22 Bandar Casas, [facility] [address] [address] Pharmacist Pharmacist 08/18/23 Bandar Casas [facility] [address] [address] Assigned MTM Pharmacist 08/27/23 Ayana Zhang PA-C 5200 [place] [address] Physician Drawer In Jacquard Loom Rheumatology 04/16/24 Srinivas Stern PA-C 909 [place] [address] Home Infusion Following Provider Gastroenterology 07/11/24 10/05/24 documented as of this encounter
--- OUTSIDE RECORDS SUMMARY | 2025-01-15 17:29 | XMS_ITS | Encounter Summary ---
Author Organization [place] Address [address] [place] [address] Care Team Providers Care Parole Or Probation Officer Name Role Phone Jairo Vasquez MD Primary Care Provider [phone] Kylee Dailey MD Unavailable + Kayode Ivey MD Unavailable [phone] Nicolasa Perez APRN FORESTRY SUPERVISOR Unavaila ble Loyda Dickey RN Unavailable [phone] Srinivas Stern PA-C Unavailable [phone] Srinivas Stern PA-C Unavailable +[phone] Violet Ta [facility] Unavailable [phone] Sue Mckeon [facility] Unavailable [phone] Karen Trinh MD Unavailable [phone] Violet Ta [facility] Unavailable [phone] Violet Ta [facility] Unavailable [phone] Srinivas Stern PA-C Unavailable +[phone] Bandar Casas [facility] Unavailable [phone] Bandar Casas [facility] Unavailable [phone] Ayana Zhang PA-C Unavailable [phone] Srinivas Stern PA-C Unavailable [phone] Encounter Details Date Type Department Care Team (Late st Contact Info) Description 01/13/2019 MyC Medical Advice [facility] Gastroenterology and IBD Clinic [address] [place] [address] Kayode Ivey MD 6 [place] [address] Social History Tobacco Use Types Packs/Day Years Used Date Smoking Tobacco: Never Smokeless Tobacco: Never Alcohol Use Standard Drinks/Week Comments Yes 13 (1 standard drink = 0.6 oz pu re alcohol) MONTHLY Sex and Gender Information Value Date Recorded Sex Assigned at Not on file Legal Sex Male 2:58 AM 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 SUPERVISOR Gender Identity Not on file Sexual Orientation Not on file 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 Plan of Treatment Upcoming Encounters Date Type Department Care Team (Latest Contact Info) Description 02/13/2025 3:20 PM CDT Appointment [facility] [address] [facility] [address] [place] [phone] Kayode Ivey MD 6 [place] [address] 03/07/2025 3:00 PM CDT Ancillary Procedure [address] [place] [address] Srinivas Stern PA-C 9 [place], [place] [address] 04/24/2025 2:40 PM CDT Virtual Visit [facility] Gastroenterology Clinic [address] [address] Alexis Torres MD 420 [place] [address] Srinivas Stern PA-C 909 [place], [place] [address] 06/05/2025 3:30 PM CDT Virtual Visit [facility] 909 [facility] 2nd [place] [address] Kayode Ivey MD 516 [place] [address] Bandar Casas, [facility] 420 [facility] 812 [place] [address] documented as of this encounter Visit Diagnoses Not on filedocumented in this encounter Additional Health Concerns Infection Onset Date Last Indicated Resolved Time MRSA-Contact Isolation Comment:MRSA hx per [facility] right wrist, chest, and elbow 02/17/2016 02/17/2016 Rule Out C-difficile 10/04/2023 10/05/2023 024 7:28 PM STOCK SUPERVISOR C-difficile 10/05/2023 10/05/2023 11/04/2023 11:3 9 PM STOCK SUPERVISOR Rule Out C-difficile 09/03/2024 09/04/2024 025 12:45 PM STOCK SUPERVISOR Assessment Noted Time PHQ-9 Depression Total Score: 9 03/02/20 16 7:16 AM CDT documented as of this encounter Care Teams Parole Or Probation Officer Relationship Specialty Start Date End Date Jairo Vasquez MD PCP - General Family Medicine - Sports Medicine 12/29/15 Kylee Dailey MD [address] [place] [address] 2[address] [place], [place] [id number] Internal Medicine 04/01/17 Kayode Ivey MD [address] [place] [address] Gastroenterology 04/01/17 Nicolasa Perez APRN FORESTRY SUPERVISOR [address] [place] [address] [id number] [place], [place] 084585 Nurse Practitioner Nurse Practitioner 04/28/17 Loyda Dickey RN Nurse Coordinator Neurology 05/26/17 02/26/19 Srinivas Stern PA-C [address] [place] [address] Physician Glass Installer Physician Glass Installer 10/02/18 Srinivas Stern PA-C [address] [place] [address] Assigned Heart and Vascular Provider 11/19/20 06/27/21 Violet Ta [facility] [address] [place] [address] Pharmacist Pharmacist 12/29/20 02/08/21 Sue Mckeon [facility] [address] [place] [address] 770855 Pharmacist Pharmacist Candle Maker 02/09/21 06/29/22 Karen Trinh MD [address] [place] [address] [id number] Assigned Infectious Disease Provider 02/08/21 07/30/22 Violet Ta [facility] [address] [place] [address] 96 [place], [place] [id number] Assigned MTM Pharmacist 02/27/22 05/21/22 Violet Ta [facility] 480 [facility] [address] [place] [address] Assigned MTM Pharmacist 06/02/22 07/09/22 Srinivas Stern PA-C [address] [place] [address] Assigned Gastroenterology Provider 07/17/22 Bandar Casas RPH 420 [facility] 812 [place] [address] Pharmacist Pharmacist 08/18/23 Bandar Casas RP [address] [address] Assigned MTM Pharmacist 08/27/23 Ayana Zhang PA-C [address] [place] [address] Physician Glass Installer Rheumatology 04/16/24 Srinivas Stern PA-C 909 [place] [address] Home Infusion Following Provider Gastroenterology 07/11/24 10/05/24 documented as of this encounter
--- OUTSIDE RECORDS SUMMARY | 2025-01-15 17:29 | XMS_ITS | Encounter Summary ---
Author Organization [place] Address [address] [place] [address] 13993 Care Team Providers Care Extension Service Specialist Name Role Phone Jairo Vasquez MD Primary Care Provider [phone] Kylee Dailey MD Unavailable + Kayode Ivey MD Unavailable [phone] Nicolasa Perez APRN CONTRACTS DIRECTOR Unavaila ble Srinivas Stern PA-C Unavailable +[phone] Srinivas Stern PA-C Unavailable +[phone] Violet Ta [facility] Unavailable +[phone] Sue Mckeon [facility] Unavailable [phone] Karen Trinh MD Unavailable +[phone] Violet Ta [facility] Unavailable +[phone] Violet Ta [facility] Unavailable +[phone] Srinivas Stern PA-C Unavailable +[phone] Bandar Casas [facility] Unavailable +[phone] Bandar Casas [facility] Unavailable +[phone] Ayana Zhang PA-C Unavailable [phone] Srinivas Stern PA-C Unavailable +[phone] Encounter Details Date Type Department Care Team (Late st Contact Info) Description 11/10/2020 MyC Medical Advice [facility] [address] [phone] Kayode Ivey MD [address] [place] [address] Social History Tobacco Use Types Packs/Day Years Used Date Smoking Tobacco: Never Smokeless Tobacco: Never Alcohol Use Standard Drinks/Week Comments Yes 13 (1 standard drink = 0.6 oz pu re alcohol) MONTHLY PHQ-2 Answer Date Recorded PHQ-2 Score 2 08/20/2019 Sex and Gender Information Value Date Recorded Sex Assigned at Not on file Legal Sex Male 2:58 AM CASTING CLEANER Gender Identity Not on file Sexual Orientation Not on file 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 No / Unsure 10/16/2020 6:07 PM CASTING CLEANER documented as of this encounter Plan of Treatment Upcoming Encounters Date Type Department Care Team (Latest Contact Info) Description 02/13/2025 3:20 PM CDT Appointment [facility] [address] [facility] [address] [place] [phone] Kayode Ivey MD [address] [place] [address] 719115 03/07/2025 3:00 PM CDT Ancillary Procedure [address] [place] [address] Srinivas Stern PA-C [address] [place] [address] 672605 04/24/2025 2:40 PM CDT Virtual Visit [facility] [address] [phone] Alexis Torres MD 420 [place], [place] 022675 Srinivas Stern PA-C 909 [place] [address] 06/05/2025 3:30 PM CDT Virtual Visit [facility] 909 [facility] 2nd [place] [address] Kayode Ivey MD 516 [place] [address] Bandar Casas [facility] 420 [facility] 812 [place], [place] 384805 documented as of this encounter Visit Diagnoses Not on filedocumented in this encounter Additional Health Concerns Infection Onset Date Last Indicated Resolved Time MRSA-Contact Isolation Comment:MRSA hx per [facility] right wrist, chest, and elbow 02/17/2016 02/17/2016 Rule Out C-difficile 10/04/2023 10/05/2023 024 7:28 PM CASTING CLEANER C-difficile 10/05/2023 10/05/2023 11/04/2023 11:3 9 PM CASTING CLEANER Rule Out C-difficile 09/03/2024 09/04/2024 025 12:45 PM CASTING CLEANER Assessment Noted Time PHQ-9 Depression Total Score: 9 03/02/20 16 7:16 AM CDT documented as of this encounter Care Teams Extension Service Specialist Relationship Specialty Start Date End Date Jairo Vasquez MD PCP - General Family Medicine - Sports Medicine 12/29/15 Kylee Dailey MD 6 [facility] 2A [place], [place] 448635 Internal Medicine 04/01/17 Kayode Ivey MD [address] [place] [address] 057715 Gastroenterology 04/01/17 Nicolasa Perez APRN CONTRACTS DIRECTOR [address] [place] [address] [id number] [place], [place] [phone] Nurse Practitioner Nurse Practitioner 04/28/17 Srinivas Stern PA-C [address] [place] [address] [phone] Physician Board Saw Runner Physician Board Saw Runner 10/02/18 Srinivas Stern PA-C [address] [place] [address] 738575 Assigned Heart and Vascular Provider 11/19/20 06/27/21 Violet Ta [facility] [address] [place] [address]55 Pharmacist Pharmacist 12/29/20 02/08/21 Sue Mckeon [facility] [address] [place] [address] [phone] Pharmacist Pharmacist Sales Promotion Officer 02/09/21 06/29/22 Karen Trinh MD [address] [place] [address] 255375 Assigned Infectious Disease Provider 02/08/21 07/30/22 Violet Ta [facility] [address] [place] [address] 49350 Assigned MTM Pharmacist 02/27/22 05/21/22 Violet Ta [facility] [address] [place] [address] Assigned MTM Pharmacist 06/02/22 07/09/22 Srinivas Stern PA-C 909 [place] [address] Assigned Gastroenterology Provider 07/17/22 Bandar Casas RPH [address] [address] Pharmacist Pharmacist 08/18/23 Bandar Casas [place] [address] [address] Assigned MTM Pharmacist 08/27/23 Ayana Zhang PA-C 5200 [place] [address] Physician Board Saw Runner Rheumatology 04/16/24 Srinivas Stern PA-C 909 [place] [address] Home Infusion Following Provider Gastroenterology 07/11/24 10/05/24 documented as of this encounter
--- OUTSIDE RECORDS SUMMARY | 2025-01-15 17:29 | XMS_ITS | Encounter Summary ---
Author Organization [place] Address [address] [place] [address] Care Team Providers Care Horticultural Specialty Grower Name Role Phone Jairo Vasquez MD Primary Care Provider [phone] Kylee Dailey MD Unavailable + Kayode Ivey MD Unavailable [phone] Nicolasa Perez APRN PEARL GLUE DRIER Unavaila ble Loyda Dickey RN Unavailable +[phone] Srinivas Stern PA-C Unavailable +[phone] Srinivas Stern PA-C Unavailable +[phone] Violet Ta [facility] Unavailable +[phone] Sue Mckeon [facility] Unavailable [phone] Karen Trinh MD Unavailable +[phone] Violet Ta [facility] Unavailable +[phone] Violet Ta [facility] Unavailable +[phone] Srinivas Stern PA-C Unavailable +[phone] Bandar Casas [facility] Unavailable +[phone] Bandar Casas [facility] Unavailable Ayana Zhang PA-C Unavailable [phone] Srinivas Stern PA-C Unavailable Encounter Details Date Type Department Care Team (Late st Contact Info) Description 01/18/2019 MyC Medical Advice [facility] Gastroenterology and IBD Clinic [address] [place] [address] Kayode Ivey MD 6 [place], [place] 909475 Social History Tobacco Use Types Packs/Day Years Used Date Smoking Tobacco: Never Smokeless Tobacco: Never Alcohol Use Standard Drinks/Week Comments Yes 13 (1 standard drink = 0.6 oz pu re alcohol) MONTHLY Sex and Gender Information Value Date Recorded Sex Assigned at Not on file Legal Sex Male 2:58 AM COUNTER ATTENDANT Gender Identity Not on file Sexual Orientation Not on file 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 Gastroenterology Clinic [address] [address] Alexis Torres MD 420 [place] [address] Srinivas Stern PA-C 909 [place], [place] [phone] 06/05/2025 3:30 PM CDT Virtual Visit Viola [facility] 909 [facility] 2nd [place] [phone] Kayode Ivey MD 516 [place] [address] Bandar Casas, [facility] 420 [facility] 812 [place] [address] documented as of this encounter Visit Diagnoses Not on filedocumented in this encounter Additional Health Concerns Infection Onset Date Last Indicated Resolved Time MRSA-Contact Isolation Comment: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[facility] right wrist, chest, and elbow 02/17/2016 02/17/2016 Rule Out C-difficile 10/04/2023 10/05/2023 024 7:28 PM COUNTER ATTENDANT C-difficile 10/05/2023 10/05/2023 11/04/2023 11:3 9 PM COUNTER ATTENDANT Rule Out C-difficile 09/03/2024 09/04/2024 025 12:45 PM COUNTER ATTENDANT Assessment Noted Time PHQ-9 Depression Total Score: 9 03/02/20 16 7:16 AM CDT documented as of this encounter Care Teams Horticultural Specialty Grower Relationship Specialty Start Date End Date Jairo Vasquez MD PCP - General Family Medicine - Sports Medicine 12/29/15 Kylee Dailey MD [address] [place] [address] 2A [place], [place] [phone] Internal Medicine 04/01/17 Kayode Ivey MD [address] [place] [address] Gastroenterology 04/01/17 Nicolasa Perez APRN PEARL GLUE DRIER [address] [place] [address] [id number] [place], [place] 854155 Nurse Practitioner Nurse Practitioner 04/28/17 Loyda Dickey RN Nurse Coordinator Neurology 05/26/17 02/26/19 Sirnivas Stern PA-C [address] [place] [address] Physician Demolition Hammer Operator Physician Demolition Hammer Operator 10/02/18 Srinivas Stern PA-C [address] [place] [address] Assigned Heart and Vascular Provider 11/19/20 06/27/21 Violet Ta [facility] [address] [place] [address]17 Pharmacist Pharmacist 12/29/20 02/08/21 Sue Mckeon [facility] [address] [place] [address] [phone] Pharmacist Pharmacist Escrow Closer 02/09/21 06/29/22 Karen Trinh MD [address] [place] [address] [phone] Assigned Infectious Disease Provider 02/08/21 07/30/22 Violet Ta [facility] [address] [place] [address] 96 [place], [place] [phone] Assigned MTM Pharmacist 02/27/22 05/21/22 Violet Ta [facility] 480 [facility] 96 [place] [address] Assigned MTM Pharmacist 06/02/22 07/09/22 Srinivas Stern PA-C [address] [place] [address] Assigned Gastroenterology Provider 07/17/22 Bandar Casas RPH 420 [facility] 812 [place] [address] Pharmacist Pharmacist 08/18/23 Bandar Casas RP [address] [address] Assigned MTM Pharmacist 08/27/23 Ayana Zhang PA-C [address] [place] [address] Physician Demolition Hammer Operator Rheumatology 04/16/24 Srinivas Stern PA-C 909 [place] [address] Home Infusion Following Provider Gastroenterology 07/11/24 10/05/24 documented as of this encounter
--- OUTSIDE RECORDS SUMMARY | 2025-01-15 17:29 | XMS_ITS | Encounter Summary ---
Author Organization [place] Address [address] [place] [address] 9[address] Care Team Providers Care Dry Lumber Grader Name Role Phone Jairo Vasquez MD Primary Care Provider [phone] Kylee Dailey MD Unavailable + Kayode Ivey MD Unavailable [phone] Nicolasa Perez APRN COMMERCIAL SHEET METAL FOREMAN Unavaila ble Srinivas Stern PA-C Unavailable [phone] Srinivas Stern PA-C Unavailable Bandar Casas [facility] Unavailable [phone] Bandar Casas [facility] Unavailable Ayana Zhang PA-C Unavailable Srinivas Stern PA-C Unavailable [phone] Encounter Details Date Type Department Care Team (Late st Contact Info) Description 08/09/2024 [facility] [address] [place] [address] Srinivas Stern PA-C 909 [place] [address] Social History Tobacco Use Types [...] file Legal Sex Male 2:58 AM SENIOR SVP Gender Identity Not on file Sexual Orientation Not on file 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 Plan of Treatment Upcoming Encounters Date Type Department Care Team (Latest Contact Info) Description 02/13/2025 3:20 PM CDT Appointment [facility] [address] [facility] [address] [place] [address] Kayode Ivey MD [address] [place] [address] 03/07/2025 3:00 PM CDT Ancillary Procedure [address] [place] [address] Srinivas Stern PA-C [address] [place] [address] 04/24/2025 2:40 PM CDT Virtual Visit [facility] Gastroenterology Clinic [address] [place] [address] Alexis Torres MD 420 [place], [place] [phone] Srinivas Setrn PA-C [address] [place] [address] 06/05/2025 3:30 PM CDT Virtual Visit [facility] GI [address] [phone] Kayode Ivey MD [address] [place] [address] Bandar Casas, RPH 420 [facility] 812 [place] [address] documented as of this encounter Visit Diagnoses Not on filedocumented in this encounter Additional Health Concerns Infection Onset Date Last Indicated Resolved Time MRSA-Contact Isolation Comment:MRSA hx per [facility] right wrist, chest, and elbow 02/17/2016 02/17/2016 Rule Out C-difficile 09/03/2024 09/04/2024 025 12:45 PM SENIOR SVP Assessment Noted Time PHQ-9 Depression Total Score: 9 03/02/20 16 7:16 AM CDT documented as of this encounter Care Teams Dry Lumber Grader Relationship Specialty Start Date End Date Jairo Vasquez MD PCP - General Family Medicine - Sports Medicine 12/29/15 Kylee Dialey MD 6 [facility] 2A [place] [address] Internal Medicine 04/01/17 Kayode Ivey MD 6 [place] [address] Gastroenterology 04/01/17 Nicolasa Perez APRN COMMERCIAL SHEET METAL FOREMAN [address] [place], [place] [address] [place] [address] Nurse Practitioner Nurse Practitioner 04/28/17 Srinivas Stern PA-C [address] [place] [address] Physician Bonding Agent Physician Bonding Agent 10/02/18 Srinivas Stern PA-C 909 [place] [address] Assigned Gastroenterology Provider 07/17/22 Bandar Casas RPH [address] [phone] Pharmacist Pharmacist 08/18/23 Bandar Casas RPH [address] 054805 Assigned MTM Pharmacist 08/27/23 Ayana Zhang PA-C 5200 [place] [address] Physician Bonding Agent Rheumatology 04/16/24 Srinivas Stern PA-C 909 [place] [address] Home Infusion Following Provider Gastroenterology 07/11/24 10/05/24 documented as of this encounter
--- OUTSIDE RECORDS SUMMARY | 2025-01-15 17:29 | XMS_ITS | Encounter Summary ---
Author Organization [place] Address [address] [place] [address]. [place] [address] Care Team Providers Care Desk Attendant Name Role Phone Jairo Vasquez MD Primary Care Provider [phone] Kylee Dailey MD Unavailable + Kayode Ivye MD Unavailable [phone] Nicolasa Perez APRN NEW HOME SALES CONSULTANT Unavaila ble Srinivas Stern-C Unavailable [phone] Srinivas Stern-C Unavailable Bandar Casas [facility] Unavailable [phone] Bandar Casas [facility] Unavailable [phone] Ayana Zhang-C Unavailable Srinivas Stern-C Unavailable [phone] Encounter Details Date Type Department Care Team (Late st Contact Info) Description 01/03/2023 [facility] Gastroenterology Clinic [address] [place] [address] Sierra Cherry MA Social History [...] file Legal Sex Male 2:58 AM DIRECTOR UNIVERSITY Gender Identity Not on file Sexual Orientation Not on file 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 Plan of Treatment Upcoming Encounters Date Type Department Care Team (Latest Contact Info) Description 02/13/2025 3:20 PM CDT Appointment [facility] [address] [facility] [address] [place] [phone] Kayode Ivey MD [address] [place] [address] 900605 03/07/2025 3:00 PM CDT Ancillary Procedure [address] [place] [address] Srinivas Stern PA-C [address] [place] [address] 452255 04/24/2025 2:40 PM CDT Virtual Visit [facility]ology Clinic [address] 4th [place] [phone] Alexis Torres MD 420 [place], [place] 308985 Srinivas Stern PA-C [address] [place] [address] 972355 06/05/2025 3:30 PM CDT Virtual Visit [facility] [address] [place] [address] 2nd [place] [phone] Kayode Ivey MD [address] [place] [address] 659375 Bandar Casas [facility] 420 [facility] 812 [place], [place] 842915 documented as of this encounter Visit Diagnoses Not on filedocumented in this encounter Additional Health Concerns Infection Onset Date Last Indicated Resolved Time MRSA-Contact Isolation Comment:MRSA hx per [facility] right wrist, chest, and elbow 02/17/2016 02/17/2016 Rule Out C-difficile 10/04/2023 10/05/2023 024 7:28 PM DIRECTOR UNIVERSITY C-difficile 10/05/2023 10/05/2023 11/04/2023 11:3 9 PM DIRECTOR UNIVERSITY Rule Out C-difficile 09/03/2024 09/04/2024 025 12:45 PM DIRECTOR UNIVERSITY Assessment Noted Time PHQ-9 Depression Total Score: 9 03/02/20 16 7:16 AM CDT documented as of this encounter Care Teams Desk Attendant Relationship Specialty Start Date End Date Jairo Vasquez MD PCP - General Family Medicine - Sports Medicine 12/29/15 Kylee Dailey MD [address] [place] [address] 2A [place], [place] [phone] Internal Medicine 04/01/17 Kayode Ivey MD [address] [place] [address] Gastroenterology 04/01/17 Nicolasa Perez APRN NEW HOME SALES CONSULTANT [address] [place], [place] [address], [place] 632915 Nurse Practitioner Nurse Practitioner 04/28/17 Srinivas Stern PA-C [address] [place] [address] 677085 Physician Carbonating Stone Cleaner Physician Carbonating Stone Cleaner 10/02/18 Srinivas Stern PA-C 909 [place] [address] Assigned Gastroenterology Provider 07/17/22 Bandar Casas RPH [address] 916695 Pharmacist Pharmacist 08/18/23 Bandar Casas RPH [address] 309855 Assigned MTM Pharmacist 08/27/23 Ayana Zhang PA-C 5200 [place] [address] Physician Carbonating Stone Cleaner Rheumatology 04/16/24 Srinivas Stern PA-C 909 [place] [address] Home Infusion Following Provider Gastroenterology 07/11/24 10/05/24 documented as of this encounter
--- OUTSIDE RECORDS SUMMARY | 2025-01-15 17:29 | XMS_ITS | Encounter Summary ---
Author Organization [place] Address [address] [place] [address] Care Team Providers Care Gelatin Dynamite Packing Operator Name Role Phone Jairo Vasquez MD Primary Care Provider [phone] Kylee Dailey MD Unavailable + Kayode Ivey MD Unavailable [phone] Nicolasa Perez APRN REHABILITATION SPECIALIST Unavaila ble Loyda Dickey RN Unavailable [phone] Srinivas Stern PA-C Unavailable [phone] Srinivas Stern PA-C Unavailable +[phone] Violet Ta [facility] Unavailable +[phone] Sue Mckeon [facility] Unavailable [phone] Karen Trinh MD Unavailable +[phone] Violet Ta [facility] Unavailable +[phone] Violet Ta [facility] Unavailable [phone] Srinivas Stern PA-C Unavailable +[phone] Bandar Casas [facility] Unavailable [phone] Bandar Casas [facility] Unavailable Ayana Zhang PA-C Unavailable [phone] Srinivas Stern PA-C Unavailable Encounter Details Date Type Department Care Team (Late st Contact Info) Description 01/15/2019 MyC Medical Advice [facility] Gastroenterology and IBD Clinic [address] [place] [address] Kayode Ivey MD 6 [place], [place] 674185 Social History Tobacco Use Types Packs/Day Years Used Date Smoking Tobacco: Never Smokeless Tobacco: Never Alcohol Use Standard Drinks/Week Comments Yes 13 (1 standard drink = 0.6 oz pu re alcohol) MONTHLY Sex and Gender Information Value Date Recorded Sex Assigned at Not on file Legal Sex Male 2:58 AM BOOSTER PUMP OPERATOR Gender Identity Not on file Sexual Orientation Not on file 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 Plan of Treatment Upcoming Encounters Date Type Department Care Team (Latest Contact Info) Description 02/13/2025 3:20 PM CDT Appointment [facility] Center Imaging [address] [facility] [address] [place] [phone] Kayode Ivey MD 6 [place] [address] 03/07/2025 3:00 PM CDT Ancillary Procedure [address] [place] [address] Srinivas Stern PA-C 9 [place], [place] 343235 04/24/2025 2:40 PM CDT Virtual Visit [facility] Gastroenterology Clinic [address] [address] Alexis Torres MD 420 [place] [address] Srinivas Stern PA-C 909 [place], [place] [phone] 06/05/2025 3:30 PM CDT Virtual Visit Viola [facility] 909 [facility] 2nd [place] [phone] Kayode Ivey MD 516 [place] [address] Bandar Casas, [facility] 420 [facility] 812 [place] [address] documented as of this encounter Visit Diagnoses Not on filedocumented in this encounter Additional Health Concerns Infection Onset Date Last Indicated Resolved Time MRSA-Contact Isolation Comment:MRSA hx per [facility] right wrist, chest, and elbow 02/17/2016 02/17/2016 Rule Out C-difficile 10/04/2023 10/05/2023 024 7:28 PM BOOSTER PUMP OPERATOR C-difficile 10/05/2023 10/05/2023 11/04/2023 11:3 9 PM BOOSTER PUMP OPERATOR Rule Out C-difficile 09/03/2024 09/04/2024 025 12:45 PM BOOSTER PUMP OPERATOR Assessment Noted Time PHQ-9 Depression Total Score: 9 03/02/20 16 7:16 AM CDT documented as of this encounter Care Teams Gelatin Dynamite Packing Operator Relationship Specialty Start Date End Date Jairo Vasquez MD PCP - General Family Medicine - Sports Medicine 12/29/15 Kylee Dailey MD [address] [place] [address] 2A [place], [place] [phone] Internal Medicine 04/01/17 Kayode Ivey MD [address] [place] [address] Gastroenterology 04/01/17 Nicolasa Perez APRN REHABILITATION SPECIALIST [address] [place] [address] [id number] [place], [place] 875425 Nurse Practitioner Nurse Practitioner 04/28/17 Loyda Dickey RN Nurse Coordinator Neurology 05/26/17 02/26/19 Srinivas Stern PA-C [address] [place] [address] Physician Stonework Tracer Physician Stonework Tracer 10/02/18 Srinivas Stern PA-C [address] [place] [address] Assigned Heart and Vascular Provider 11/19/20 06/27/21 Violet Ta [facility] [address] [place] [address] Pharmacist Pharmacist 12/29/20 02/08/21 Sue Mckeon [facility] [address] [place] [address] [phone] Pharmacist Pharmacist Ocean Freight Manager 02/09/21 06/29/22 Karen Trinh MD [address] [place] [address] [phone] Assigned Infectious Disease Provider 02/08/21 07/30/22 Violet Ta [facility] [address] [place] [address] 96 [place], [place] [phone] Assigned MTM Pharmacist 02/27/22 05/21/22 Violet Ta [facility] 480 [facility] [address] [place] [address] Assigned MTM Pharmacist 06/02/22 07/09/22 Srinivas Stern PA-C [address] [place] [address] Assigned Gastroenterology Provider 07/17/22 Bandar Casas RPH 420 [facility] 812 [place] [address] Pharmacist Pharmacist 08/18/23 Bandar Casas RP [address] [address] Assigned MTM Pharmacist 08/27/23 Ayana Zhang PA-C [address] [place] [address] Physician Stonework Tracer Rheumatology 04/16/24 Srinivas Stern PA-C 909 [place] [address] Home Infusion Following Provider Gastroenterology 07/11/24 10/05/24 documented as of this encounter
--- OUTSIDE RECORDS SUMMARY | 2025-01-15 17:29 | XMS_ITS | Encounter Summary ---
Author Organization [facility] Address [address] [place] [address] Care Team Providers Care Artifacts Conservator Name Role Phone Jairo Vasquez MD Primary Care Provider [phone] Kylee Dailey MD Unavailable + Kayode Ivey MD Unavailable [phone] Nicolasa Perez APRN MEDICAL REIMBURSEMENT SPECIALIST Unavaila ble Loyda Dickey RN Unavailable [phone] Srinivas Stern PA-C Unavailable [phone] Srinivas Stern PA-C Unavailable +[phone] Violet Ta [facility] Unavailable +[phone] Sue Mckeon [facility] Unavailable [phone] Karen Trinh MD Unavailable +[phone] Violet Ta [facility] Unavailable +[phone] Violet Ta [facility] Unavailable +[phone] Srinivas Stern PA-C Unavailable +[phone] Bandar Casas [facility] Unavailable [phone] Bandar Casas [facility] Unavailable [phone] Ayana Zhang PA-C Unavailable [phone] Srinivas Stern PA-C Unavailable Encounter Details Date Type Department Care Team (Late st Contact Info) Description 03/01/2018 MyC Medical Advice [facility] [address] [place] [phone] Blanca Menezes, RN Social History Tobacco Use Types Packs/Day Years Used Date Smoking Tobacco: Never Smokeless Tobacco: Never Alcohol Use Standard Drinks/Week Comments Yes 13 (1 standard drink = 0.6 oz pu re alcohol) MONTHLY Sex and Gender Information Value Date Recorded Sex Assigned at Not on file Legal Sex Male 2:58 AM DEBT RECOVERY OFFICER Gender Identity Not on file Sexual Orientation Not on file 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 [id number] [facility] [address] [place] [phone] Kayode Ivey MD [address] [place] [address] 03/07/2025 3:00 PM CDT Ancillary Procedure [address] [place] [address] Srinivas Stern PA-C [address] [place] [address] 04/24/2025 2:40 PM CDT Virtual Visit [facility] [address] [address] Alexis Torres MD [address] [place], [place] [id number] Srinivas Stern PA-C [address] [place] [address] 06/05/2025 3:30 PM CDT Virtual Visit [facility] [address] [facility] [address] 2nd [place] [address] Kayode Ivey MD [address] [place], [place] [phone] Bandar Casas, [facility] 420 [facility] [address]12 [place], [place] [phone] documented as of this encounter Visit Diagnoses Not on filedocumented in this encounter Additional Health Concerns Infection Onset Date Last Indicated Resolved Time MRSA-Contact Isolation Comment:MRSA hx per [facility] right wrist, chest, and elbow 02/17/2016 02/17/2016 Rule Out C-difficile 10/04/2023 10/05/2023 024 7:28 PM DEBT RECOVERY OFFICER C-difficile 10/05/2023 10/05/2023 11/04/2023 11:3 9 PM DEBT RECOVERY OFFICER Rule Out C-difficile 09/03/2024 09/04/2024 025 12:45 PM DEBT RECOVERY OFFICER Assessment Noted Time PHQ-9 Depression Total Score: 9 03/02/20 16 7:16 AM CDT documented as of this encounter Care Teams Artifacts Conservator Relationship Specialty Start Date End Date Jairo Vasquez MD PCP - General Family Medicine - Sports Medicine 12/29/15 Kylee Dailey MD [address] [place] [address] [address] [place], [place] [phone] Internal Medicine 04/01/17 Kayode Ivey MD [address] [place] [address] [id number] Gastroenterology 04/01/17 Nicolasa Perez APRN MEDICAL REIMBURSEMENT SPECIALIST [address] [place] [address] [id number] [place] [address] Nurse Practitioner Nurse Practitioner 04/28/17 Loyda Dickey, RN Nurse Coordinator Neurology 05/26/17 02/26/19 Srinivas Stern PA-C [address] [place] [address] Physician Chinese Language Professor Physician Chinese Language Professor 10/02/18 Srinivas Stern PA-C [address] [place] [address] Assigned Heart and Vascular Provider 11/19/20 06/27/21 [facility] [address] [place] [address] Pharmacist Pharmacist 12/29/20 02/08/21 Sue Mckeon [facility] [address] [place] [address] Pharmacist Pharmacist Director Video 02/09/21 06/29/22 Karen Trinh MD [address] [place] [address] Assigned Infectious Disease Provider 02/08/21 07/30/22 Violet Ta, [facility] [address] [place] [address] [address] [place] [address] Assigned MTM Pharmacist 02/27/22 05/21/22 Violet Ta [facility] [address] [facility] [address] [place] [address] Assigned MTM Pharmacist 06/02/22 07/09/22 Srinivas Stern PA-C [address] [place] [address] Assigned Gastroenterology Provider 07/17/22 Bandar Casas [facility] [address] [id number] Pharmacist Pharmacist 08/18/23 Bandar Casas [facility] [address] [place] [address] Assigned MTM Pharmacist 08/27/23 Ayana Zhang PA-C [address] [place] [address] Physician Chinese Language Professor Rheumatology 04/16/24 Srinivas Stern PA-C [address] [place] [address] Home Infusion Following Provider Gastroenterology 07/11/24 10/05/24 documented as of this encounter
--- OUTSIDE RECORDS SUMMARY | 2025-01-15 17:29 | XMS_ITS | Encounter Summary ---
Author Organization [facility] Address [address] [place] [address] Care Team Providers Care Barn Hand Name Role Phone Jairo Vasquez MD Primary Care Provider [phone] Kylee Dailey MD Unavailable + Kayode Ivey MD Unavailable [phone] Nicolasa Perez APRN ENGINEERING TEAM SUPERVISOR Unavaila ble Srinivas Stern PA-C Unavailable [phone] Sue Mckeon [facility] Unavailable [phone] Karen Trinh MD Unavailable [phone] Violet Ta [facility] Unavailable Violet Ta [facility] Unavailable Srinivas Stern PA-C Unavailable [phone] Bandar Casas [facility] Unavailable Bandar Casas [facility] Unavailable Ayana Zhang PA-C Unavailable Srinivas Stern PA-C Unavailable [phone] Encounter Details Date Type Department Care Team (Late st Contact Info) Description 05/19/2022 [facility] [address] [address] Sue cMkeon, [facility] [address] [place] [address] Social History Tobacco Use Types Packs/Day Years Used Date Smoking Tobacco: Never Smokeless Tobacco: Never Alcohol Use Standard Drinks/Week Comments Yes 13 (1 standard drink = 0.6 oz pu re alcohol) MONTHLY PHQ-2 Answer Date Recorded PHQ-2 Score 0 01/19/2022 Sex and Gender Information Value Date Recorded Sex Assigned at Not on file 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 Gender Identity Not on file Sexual [...] PM CDT Appointment [facility] [place] [facility] [address] [facility] [address] [place] [address] Kayode Ivey MD [address] [place] [address] 03/07/2025 3:00 PM CDT Ancillary Procedure [facility] [address] [facility] [address] [place] [address] Srinivas Stern PA-C [address] [place] [address] 04/24/2025 2:40 PM CDT Virtual Visit [facility] [address] 4th [place] [phone] Alexis Torres MD [address] [place] [address] Srinivas Stern PA-C [address] [place] [address] 06/05/2025 3:30 PM CDT Virtual Visit [facility] [address] [facility] 2nd [place] [address] Kayode Ivey MD [address] [place] [address] Bandar Casas, [facility] [address] [facility] 812 [place] [address] documented as of this encounter Visit Diagnoses Not on filedocumented in this encounter Additional Health Concerns Infection Onset Date Last Indicated Resolved Time MRSA-Contact Isolation Comment:MRSA hx per [facility] right wrist, chest, and elbow 02/17/2016 02/17/2016 Rule Out C-difficile 10/04/2023 10/05/2023 024 7:28 PM COMPUTER AIDED DESIGN OPERATOR C-difficile 10/05/2023 10/05/2023 11/04/2023 11:3 9 PM COMPUTER AIDED DESIGN OPERATOR Rule Out C-difficile 09/03/2024 09/04/2024 025 12:45 PM COMPUTER AIDED DESIGN OPERATOR Assessment Noted Time PHQ-9 Depression Total Score: 9 03/02/20 16 7:16 AM CDT documented as of this encounter Care Teams Barn Hand Relationship Specialty Start Date End Date Jairo Vasquez MD PCP - General Family Medicine - Sports Medicine 12/29/15 Kylee Dailey MD [address] [place] [id number] Internal Medicine 04/01/17 Kayode Ivey MD [address] [place] [address] 51 Gastroenterology 04/01/17 Nicolasa Perez APRN CNP [address] [place] [address] [id number] [place] [address] Nurse Practitioner Nurse Practitioner 04/28/17 Srinivas Stern PA-C [address] [place] [address] Physician Polyethylene Combiner Physician Polyethylene Combiner 10/02/18 Sue Mckeon [facility] [address] [place] [address] Pharmacist Pharmacist Hematologist 02/09/21 06/29/22 Karen Trinh MD [address] [place] [address] Assigned Infectious Disease Provider 02/08/21 07/30/22 Violet Ta, [facility] [address] [place] [address] Assigned MTM Pharmacist 02/27/22 05/21/22 [facility] [address] [place] [address] Assigned MTM Pharmacist 06/02/22 07/09/22 Srinivas Stern PA-C [address] [place] [address] Assigned Gastroenterology Provider 07/17/22 Bandar Casas [facility] 420 [facility] 812 [place] [address] Pharmacist Pharmacist 08/18/23 Bandar Casas [facility] 420 [facility] 812 [place] [address] Assigned MTM Pharmacist 08/27/23 Ayana Zhang PA-C [address] [place] [address] Physician Polyethylene Combiner Rheumatology 04/16/24 Srinivas Stern PA-C [address] [place] [address] Home Infusion Following Provider Gastroenterology 07/11/24 10/05/24 documented as of this encounter
--- OUTSIDE RECORDS SUMMARY | 2025-01-15 17:30 | XMS_ITS | Clinical Summary ---
Author Organization Ralph Address [address] [place] [address] Care Team Providers Care Brine Maker Name Role Phone Jairo Vasquez MD Primary Care Provider Kylee Dailey MD Unavailable + Kayode Ivey MD Unavailable Nicolasa Perez APRN BINDER COVERSTITCH Unavaila ble Srinivas Stern-C Unavailable [phone] Srinivas Stern-C Unavailable [phone] Bandar Casas [facility] Unavailable Bandar Casas [facility] Unavailable Ayana Zhang-C Unavailable Allergies Active Allergy Reactions [...] (06/07/2023): Jun 2017: [facility], Dr. Kylee Dailey: for elevated liver test [...] sugar was this high. A1c 7.[address] [facility] March 2016. Apr 2016: Follow up [...] 02/02/2016 Overview (06/15/2017): Overview: Late January 2016: [facility] admission for dizziness after antibiotics, changed to vancomycin. 02/05/16: Dr. Nation suggested: double vanco to 250mg qid, consider retest for c diff, or referal to [place] or [facility] for fecal transplant?? vs colonoscopy to look for inflammatory bowel? Doesn't want to do repeat colonoscopy with acute Clostridium difficile infection. February 2016: repeat Clostridium difficile test at [facility] negative 02/16/16. March 2016: Recurrence with hospitalization at [facility], on oral vancomycin. Lower abdominal pain 03/24/2015 Overview (06/15/2017): Overview: March 2015: GI consult, Levsin was started. Also constipation. February 2016: Colonoscopy diagnosed with Ulcerative Colitis at [facility]. Overview: March 2015: GI consult, Levsin was [...] 02/20/2016 Overview (02/15/2016): Overview: Late January 2016: [facility] admission for dizziness after antibiotics, changed to vancomycin. 02/05/16: Dr. Nation suggested: double vanco to 250mg qid, consider retest for c diff, or referal to [place] or [facility] for fecal transplant?? vs colonoscopy to look for inflammatory bowel? Doesn't want to do repeat colonoscopy with acute Clostridium difficile infection. Encounters Date Type Department Care Team Description 01/14/2025 2:00 PM CDT - 01/14/2025 2:40 PM [place] [address] [place] [address] Yuan Evans MD Colonoscopy 01/14/2025 1:05 PM CDT - 01/14/2025 11:59 PM CDT [place] [address] [place] [address] Yuan Evans MD Discharge Disposition: Home or Self Care 01/10/2025 Telephone [facility] [address] [place] [address] None Outreach 01/03/2025 Orders Only [facility] [address] [place] [phone] Kayode Ivey MD Splenomegaly (Primary Dx) 01/03/2025 MyC Medical Advice [facility] [place] [address] [phone] Bandar Casas [facility] 12/31/2024 MyC Medical Advice [facility] Gastroenterology [address] [phone] Mary Lou Abdullahi LPN 12/30/2024 Refill [facility] GI [facility] [address] [phone] Kayode Ivey MD Med Change Request 12/28/2024 MyC Medical Advice [facility] Gastroenterology [address] [phone] Lilibeth Gamboa, RN 12/28/2024 Telephone [facility] Gastroenterology [address] [phone] Lilibeth Gamboa, RN Pt. Information/instru ction (Colonoscopy ) 12/28/2024 MyC Medical Advice [facility] Gastroenterology [address] [phone] Jeri Shaffer 12/28/2024 Telephone [facility] G[facility]enter[facility] [address] [phone] None Procedure (Colonoscopy) 12/26/2024 Telephone [facility] Gastroenterology [address] [phone] Kayode Ivey MD Prior Auth - Medication (Budesonide foam) 12/26/2024 Refill [facility] Gastroenterology [address] [phone] Kayode Ivey MD Med Change Request 12/24/2024 MyC Medical Advice [facility] Gastroenterology [address] [phone] Kayode Ivey MD Ulcerative pancolitis without complication (H) (Primary Dx) 12/22/2024 Orders Only [facility] [address] [place] [address] Srinivas Stern PA-C 12/22/2024 Orders Only [facility] GI [facility] 9[address] [facility] [address] [place] [address] Malgorzata Acosta Ulcerative colitis with rectal bleeding, unspecified location (H) 12/20/2024 MyC Medical Advice [facility] [address] [place] [phone] Mariajose Dailey, RN FCP 12/15/2024 11:10 AM CDT Lab [facility] [address] [place] [phone] Ulcerative pancolitis without complication (H); Ulcerative colitis with rectal bleeding, unspecified location (H) 12/15/2024 Travel 12/12/2024 MyC Medical Advice [facility] GI [facility] [address] [phone] Bandar Casas RPH Ulcerative colitis with rectal bleeding, unspecified location (H) (Primary Dx) 12/07/2024 MyC Medical Advice [facility] GI [facility] [address] [phone] Bandar Casas RPH 12/05/2024 3:00 PM CDT Virtual Visit [facility] GI [facility] [address] [phone] Srinivas Stern PA-C Williams, Samuel, RPH Ulcerative colitis with rectal bleeding, unspecified location (H) (Primary Dx) 12/05/2024 MyC Medical Advice [facility] GI [facility] [address] [phone] Bandar Casas RPH 11/25/2024 MyC Medical Advice [facility] GI [facility] [address] [phone] Bandar Casas [facility] 11/12/2024 4:15 PM CDT Lab [facility] [place] [address] Ulcerative pancolitis without complication (H) 11/12/2024 Travel 11/12/2024 MyC Medical Advice [facility] [address] [phone] Srinivas Stern PA-C Ulcerative pancolitis without complication (H) (Primary Dx) 10/26/2024 Telephone [facility] [address] [phone] Srinivas Stern PA-C Appointment 10/24/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 [facility] [address] [phone] Kayode Ivey MD Ulcerative pancolitis without complication (H) (Primary Dx) 10/24/2024 MyC Medical Advice [facility] [address] [phone] Kayode Ivey MD 10/23/2024 Travel 10/19/2024 MyC Medical Advice [facility] GI [address] [phone] Bandar Casas, [facility] entyvio pen cost (resolved) from Last 3 [...] on file 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 Gender Identity Not on file [...] CDT Appointment [facility] [address] [facility] [address] [place] [address] Kayode Ivey MD [address] [place] [address] 03/07/2025 3:00 PM CDT Ancillary Procedure [facility] [address] [place] [address] Srinivas Stern PA-C [address] [place] [address] 04/24/2025 2:40 PM CDT Virtual Visit [facility] [address] [place] [phone] Alexis Torres MD [address] [place], [place] [phone] Srinivas Stern PA-C [address] [place], [place] [phone] 06/05/2025 3:30 PM CDT Virtual Visit [facility] GI [address] [place] [phone] Kayode Ivey MD [address] [place], [place] [phone] Bandar Casas [place] [address] [facility] [address] [place], [place] [phone] Health Maintenance Due Date Last Done Comments [...] Results * COLONOSCOPY (01/14/2025 1:48 PM CDT) [facility] Endoscopy Department-[facility] Patient Name: Igor Flores Procedure Date: 01/14/2025 1:48 PM Date of : 1975 Admit Type: Outpatient Age: 49 Gender: Male Note Status: Finalized Attending MD: YUAN EVANS MD, Instrument Name: [id number] Procedure: Colonoscopy Indications: Disease activity assessment of [...] bowel preparation was evaluated using the BBPS ([place] Bowel Preparation Scale) with scores of: Right [...] F inal Result MG LABORAT[facility] - [address] Lab, [facility] [place] [address], [facility] * (ABNORMAL) Calprotectin Feces (12/21/2024 [...] UM SPECIALTY CORE/PROT/ENDO UM Specialty Core/Prot/Endo [address] [facility] [address] [facility], Room [address] * Vedolizumab Level and Antibodies (12/15/2024 [...] Ed ited Result - Final MADAI HERNANDEZ [address] [place] [address], [facility] [phone] * CBC with platelets and differential (12/15/2024 [...] - BLOOD ORDERABLES Chika arias Result LABORATORY [facility] Lab [address] Lab (1st floor, no room number) [place] [address], [facility] * (ABNORMAL) Hepatic function panel [...] LAB - BLOOD ORDERABLES Chika l Result [facility] Lab [address] [employer] Lab (1st floor, no room number) [place] [address] * CRP inflammation (12/15/2024 11:17 AM CDT) Only the most recent of2 resultswithin the time period is included. CRP Inflammation <3.00 <5.00 mg/L 12/16/19 11:39 AM CDT LABORATORY Blood STRUCTURE OF LEFT HAND / Unknown Venipuncture / Unknown 12/15/2024 11:17 AM CDT 12/15/2024 11:19 AM CDT Srinivas Stern PA-C LAB - BLOOD ORDERABLES Chika l Result [facility] [address] Lab (1st floor, no room number) [place] [address] * Enteric Bacteria and Virus Panel PCR [...] using the FDA-cleared FilmArray GI Panel from [employer] A negative result should not rule [...] by the Infectious Diseases Diagnostic Laboratory at [facility]. This laboratory is certified under the Clinical Laboratory Improvement Amendments of 1988 (CLIA-88) as qualified to perform high complexity clinical laboratory testing. us Srinivas Stern PA-C LAB - MICRO GENERAL ORDERAB LES Final Result [facility] LABORATORY [facility] Inf. Diseases Diag. Lab [address] [facility], [address] [place] [address] * FLEXIBLE SIGMOIDOSCOPY - HIM SCAN (04/16/2019 12:00 AM CDT) 04/16/2019 us Provider Outside PROCEDURES Final Result * (ABNORMAL) Basic metabolic panel (06/23/2017 7:35 AM CDT) Sodium 140 133 - 144 mmol/L 06/23/2017 8:09 AM CDT [facility] Potassium 4.0 3.4 - 5.3 mmol/L 06/23/2017 8:09 AM T [facility] Chloride 109 94 - 109 mmol/L 06/23/2017 8:09 AM T [facility] Carbon Dioxide 26 20 - 32 mmol/L 06/23/2017 8:09 AM T [facility] Anion Gap 5 3 - 14 mmol/L 06/23/2017 8:09 AM T [facility] Glucose 117(H) 70 - 99 mg/dL 06/23/2017 8:09 AM CDT [facility] Urea Nitrogen 9 7 - 30 mg/dL 06/23/2017 8:09 AM CDT [facility] Creatinine 0.82 0.66 - 1.25 mg/dL 06/23/2017 8:09 AM T [facility] GFR Estimate >90 >60 mL/min/1.7 m2 06/23/2017 8:09 AM T [facility] Comment:Non GFR Calc GFR Estimate If Black >90 >60 mL/min/1.7 m2 06/23/2017 8:09 AM T [facility] Comment: GFR Calc Calcium 8.6 8.5 - 10.1 mg/dL 06/23/2017 8:09 AM T [facility] Blood specimen (specimen) 06/23/2017 7:35 AM CDT 06/23/2017 7:46 AM CDT us [address] MD LAB - BLOOD ORDERABLES Final R esult [facility] [address] [phone] * Hepatitis C antibody (03/24/2017 3:43 PM CDT) Pathologist [facility] Hepatitis C Antibody Nonreactive Assay performance characteristics have not been established for newborns, infants, and children NR [facility] Blood specimen (specimen) 03/24/2017 3:43 PM CDT 03/24/2017 3:45 PM CDT us Kayode Ivey MD LAB - BLOOD ORDERABLES Fi nal Result [facility] [address] [place] [address] * (ABNORMAL) Hemoglobin A1c (03/31/2016 7:51 AM CDT) Pathologist [facility] Hemoglobin A1C 8.0(H) 4.3 - 6.0 % [facility] Blood specimen (specimen) 03/31/2016 7:51 AM CDT 03/31/2016 7:56 AM CDT us Antonio Powers MD LAB - BLOOD ORDERABLES Final R esult [facility] [address] [place] [address] from Last 3 Months or Most Recently Relevant to Health Maintenance Additional Health Concerns Infection Onset Date Last Indicated MRSA-Contact Isolation Comment:MRSA hx per [facility] right wrist, chest, and elbow 02/17/2016 02/17/2016 Insurance [employer] OUT OF STATE none (Work) [id number] [place] [address] [employer] OUT OF STATE * Guarantor: Igor Flores Account Type Relation to Patient Date of Phone Billing Address Medication Therapy Self 1975 [id number] [place] [phone] [employer] OUT OF [employer] Advance Directives For more information, please contact: [phone] * Full Code (Latest Code Status on File) Date Activated Date Inactivated Comments 04/03/2016 2:17 PM * Full Code Date Activated Date Inactivated Comments 03/29/2016 9:57 PM 04/03/2016 2:17 PM * Full Code Date Activated Date Inactivated Comments 02/22/2016 3:26 PM 03/29/2016 9:57 PM * Full Code Date Activated Date Inactivated Comments 02/16/2016 6:02 AM 02/22/2016 3:26 PM Care Teams Brine Maker Relationship Specialty Start Date End Date Jairo Vasquez MD PCP - General Family Medicine - Sports Medicine 12/29/15 Kylee Dailey MD [address] [place] [id number] Internal Medicine 04/01/17 Kayode Ivey MD [address] [place] [address] Gastroenterology 04/01/17 Nicolasa Perez APRN CNP [address] [facility] [id number] [place], [place] [address] Nurse Practitioner Nurse Practitioner 04/28/17 Srinivas Stern PA-C [address] [place], [place] [address] Physician Paste Mixing Supervisor Physician Paste Mixing Supervisor 10/02/18 Srinivas Stern PA-C [address] [place], [place] [address] Assigned Gastroenterology Provider 07/17/22 Bandar Casas RPH [address] [facility] [address] [place], [place] [phone] Pharmacist Pharmacist 08/18/23 Bandar Casas RPH [address] [facility] [address] [place], [place] [address] Assigned MTM Pharmacist 08/27/23 Ayana Zhang PA-C [address] [place] [address] Physician Paste Mixing Supervisor Rheumatology 04/16/24
[2025-01-15 17:37] LABS: Troponin, Point-of-Care* 0.01 ng/ml (0.01-0.04)
[2025-01-15 17:41] LABS: Basophils Absolute Auto 0.02 K/uL (0.00-0.30); Basophils Percent Auto 0.3 % (0.0-3.0); Chloride* 108 mmol/L (96-114); Eosinophils Absolute Auto 0.12 K/uL (0.00-0.50); Eosinophils Percent Auto 1.9 % (0.0-7.0); Hematocrit 40.6 % (37.0-53.0); Hemoglobin* 14.7 gm/dL (13.5-17.5); Immature Granulocytes Abs Auto 0.01 K/uL (0.00-0.30); Immature Granulocytes Pct Auto 0.2 %; Lymphocytes Absolute Auto 2.24 K/uL (0.90-2.90); Lymphocytes Percent Auto 36.3 % (20-44); Mean Corpuscular HGB Conc 36 gm/dL (32-36); Mean Corpuscular Hemoglobin 31 pg (26-34); Mean Corpuscular Volume 86 fL (80-100); Monocytes Percent Auto 6.5 % (0.0-11.0); Neutrophils Absolute Auto 3.38 K/uL (1.7-7.0); Neutrophils Percent Auto 54.8 % (42.0-72.0); Platelet Count* 204 K/uL (140-440); RDW Coefficient of Variation % 12.9 % (11.5-15.5); Red Blood Count 4.75 m/uL (4.30-5.90); White Blood Count* 6.17 K/uL (4.50-11.00)
[2025-01-15 17:42] LABS: Albumin* 4.7 g/dL (3.3-5.0); Potassium* 3.8 mmol/L (3.6-5.1); Sodium* 142 mmol/L (135-149)
[2025-01-15 17:45] LABS: Alanine Aminotransferase* 56 U/L (4-50); Alkaline Phosphatase* 56 U/L (40-150); Anion Gap 9 mEq/L (7-15); Aspartate Amino Transferase* 42 U/L (12-35); Bilirubin Direct* 0.4 mg/dL (0.0-0.5); Bilirubin Total* 1.6 mg/dL (0.1-1.5); Blood Urea Nitrogen* 14 mg/dL (7-30); Carbon Dioxide* 25 mmol/L (20-32); Creatinine* 0.8 mg/dL (0.5-1.5); Est. Creatinine Clearance* 135.63; Estimated Glomerular Filt Rate 108 ml/min; Total Protein* 7.1 g/dL (6.0-8.3)
[2025-01-15 17:46] LABS: Calcium* 9.5 mg/dL (8.4-10.6); Glucose* 123 mg/dL (60-115); Magnesium* 2.2 mg/dL (1.5-2.6)
[2025-01-15 17:48] LABS: C Reactive Protein* 1.8 mg/dL (0.5-1.0)
[2025-01-15 17:53] LABS: Slide Review Reflex No
[2025-01-15 19:33] LABS: TSH With Reflex to FT4* 0.881 uIU/mL (0.270-4.200)
== END 2025-01-15 19:58 | disposition home or self-care (01) ==
PROVIDERS: Emergency Provider Emergency Medicine; PCP Family Medicine
DX: R53.83 Other fatigue (principal); F41.9 Anxiety disorder, unspecified
CPT/HCPCS: 36415; 80048; 80076; 83735; 84443; 84484; 85025; 86140; 93005; 99284

== ENCOUNTER 2025-01-29 07:31 | Outpatient (CLI) | payer BC, SELFPAY | END 2025-01-29 07:32 | disposition home or self-care (01) | LOC: INJ CL 07:31 | PROVIDERS: PCP Family Medicine; Visit Provider Family Medicine | DX: M54.16 Radiculopathy, lumbar region (principal); M51.369 Other intervertebral disc degeneration, lumbar region without mention of lumbar back pain or lower extremity pain | CPT/HCPCS: 62323; J0702; Q9966 ==

== ENCOUNTER 2025-06-18 07:32 | Outpatient (CLI) | payer BC, SELFPAY | END 2025-06-18 07:33 | disposition home or self-care (01) | LOC: INJ CL 07:33 | PROVIDERS: PCP Family Medicine; Visit Provider Family Medicine | DX: M54.16 Radiculopathy, lumbar region (principal); M51.360 Other intervertebral disc degeneration, lumbar region with discogenic back pain only | CPT/HCPCS: 62323; J0702; Q9966 ==